=== PATIENT | female | born 1940 | race Caucasian/White ===

== ENCOUNTER 2018-02-11 01:56 | Observation (INO) | payer MEDICARE, OTHER, SELFPAY ==
[2018-02-11] VITALS (7 sets, daily range): BP systolic 124–161; BP diastolic 53–89; PULSE 58–71; RESP 16–20; TEMP 36.1–36.9; O2SAT 96–100; BMI 24.6
[2018-02-11] MEDS: SODIUM CHLORIDE 0.9% 1,000 ML 150 ML IV ×2 (02:51→04:42)
[2018-02-11] MEDS: VANCOMYCIN 1,000 MG/200 ML FROZ.PIGGY 200 MG IV (02:51)
--- NOTE | 2018-02-11 02:57 | PC.NURSE ---
rt hand swelling/pain/redness for several days, diag with MRSA per PCP, unable to obtain Rx, now c/o increasing pain, lt hand also painful with mild redness, bilat distal cms intact, reports chills yesterday, denies nausea/vomiting/injury/soa/cp
[2018-02-11 02:58] LABS: Neutrophils Percent Auto 75.9 % (50-75); Red Cell Distribution Width 13.2 % (11.6-14.8)
[2018-02-11 03:07] LABS: Add Manual Diff / Slide Review NO; Basophils Percent Auto 0.8 % (0-2); Eosinophils Percent Auto 1.8 % (2-4); Hematocrit 33.6 % (36-46); Hemoglobin 11.7 g/dL (12.0-16.0); Mean Corpuscular HGB Conc 34.7 % (30-36); Mean Corpuscular Hemoglobin 32.3 PG (26-34); Mean Corpuscular Volume 93.1 fL (80-100); Monocytes Percent Auto 6.5 % (3-14); Neutrophils Absolute Auto 9900 /uL (3000-5900); Platelet Count 185 X10^3/uL (150-400); Red Blood Cell Count 3.61 X10^6/uL (4.0-5.2)
[2018-02-11 03:09] LABS: Alanine Aminotransferase 36 IU/L (9-52); Albumin 3.7 g/dL (3.5-5.0); Albumin Globulin Ratio 1.3 (1.0-2.8); Alkaline Phosphatase 167 U/L (38-126); Aspartate Aminotransferase 32 IU/L (14-36); BUN Creatinine Ratio 17.5 (6-22); Bilirubin Total 0.8 mg/dL (0.2-1.3); Calcium 8.6 mg/dL (8.4-10.2); Estimated Glomerular Filt Rate 43.7 mL/min (>60); Globulin 2.8 g/dL (1.7-4.1); Glucose 152 mg/dL (80-110); HEMOLYSIS < 15 (0-50); Potassium 3.8 mmol/L (3.4-5.1); Sodium 139 mmol/L (137-145); Total Protein 6.5 g/dL (6.3-8.2); Uric Acid 9.4 mg/dL (2.5-6.2)
[2018-02-11 03:17] LABS: Erythrocyte Sedimentation Rate 42 MM/HR (0-20)
[2018-02-11 03:22] LABS: C-Reactive Protein Quant 23.5 mg/dL (<1.0); Procalcitonin 0.29 ng/mL (<0.5)
--- NOTE | 2018-02-11 05:47 | ED_ITS ---
HPI - Extremity Problem General Chief complaint: Extremity Problem,Nontraumatic Stated complaint: MRSA DIAGNOSIS YEST, NOT GIVEN MEDS Time Seen by Provider: 02/11/18 02:00 Source: patient and family Mode of arrival: ambulatory History of Present Illness HPI Narrative: 77F with hx of DM presents with 4 days of worsening R hand pain, swelling, and redness. She saw her PCP yesterday and was given an Rx for an ABX for MRSA but hasn't filled it yet. MD Complaint: extremity pain and extremity swelling Onset (ago): day(s) Pain Consistency: constant Location: right Quality: burning and aching Radiation: proximal Relieving factors: nothing Exacerbating factors: nothing Associated symptoms: fever Related Data Home Medications Medication Instructions Recorded Confirmed amitriptyline 30 mg PO BEDTIME 02/11/18 02/11/18 diazepam 5 mg PO BID PRN 02/11/18 02/11/18 insulin glargine [Lantus U-100 12 unit SUB-Q BID 02/11/18 02/11/18 Insulin] lisinopril 20 mg PO DAILY 02/11/18 02/11/18 metoprolol succinate 50 mg PO 02/11/18 Allergies Allergy/AdvReac Type Severity Reaction Status Date / Time acetaminophen [From Percocet] AdvReac Nausea Verified 02/11/18 02:07 oxycodone [From Percocet] AdvReac Nausea Verified 02/11/18 02:07 Review of Systems Review of Systems All systems reviewed & are unremarkable except as noted in HPI and below Constitutional Denies chills, Denies fever(s), Denies lethargy and Denies weakness Eyes Denies change in vision, Denies eye discharge, Denies irritation and Denies loss of vision ENT Ears, Nose, Mouth, and Throat: Denies change in voice, Denies neck pain and Denies sore throat Cardiovascular Denies chest pain, Denies irregular heart rhythm, Denies lightheadedness, Denies palpitations, Denies dyspnea, Denies dyspnea on exertion and Denies orthopnea Respiratory Denies cough, Denies dyspnea, Denies dyspnea on exertion and Denies wheezing Gastrointestinal Gastrointestinal: Denies abdominal pain, Denies change in bowel habits, Denies diarrhea, Denies nausea and Denies vomiting Genitourinary Denies hematuria, Denies flank pain, Denies urinary incontinence and Denies urinary urgency Musculoskeletal Reports arthralgias, Reports joint swelling, Reports limited range of motion and Denies neck pain Integumentary/Breasts Denies pruritus, Reports erythema, Denies rash and Denies wounds Neurologic Denies confusion, Denies loss of vision and Denies weakness Psychiatric Denies anxiety, Denies confusion, Denies depression, Denies homicidal ideation and Denies suicidal ideation Endocrine Denies palpitations Allergic/Immunologic Denies wheezing PFSH Social History household members: spouse Smoking Status: Former smoker alcohol intake: current Exam Narrative Exam Narrative: Pleasant 77F clutching her painful R hand Initial Vital Signs Initial Vital Signs: Vital Signs Temperature 98.5 F 02/11/18 02:07 Pulse Rate 65 02/11/18 02:07 Respiratory Rate 20 02/11/18 02:07 Blood Pressure 161/62 H 02/11/18 02:07 Pulse Oximetry 97 02/11/18 02:07 Const General: cooperative and well developed Nutritional Appearance: well nourished Orientation: alert, awake, oriented x3 and not confused HENNV Head: normocephalic and atraumatic Ears: external ears normal and TM's normal bilaterally Nose: external nose normal and No nasal discharge Face and sinus: sinuses nontender, face symmetric, no sinus tenderness and No dry mucous membranes Mouth: oral mucosae normal and moist mucous membranes Teeth and gingiva: dentition normal Throat: tonsils normal and uvula midline Resp Effort & Inspection: normal respiratory effort, able to speak in complete sentences, no respiratory distress and no use of accessory muscles Auscultation: clear to auscultation bilaterally, no rales, no rhonchi and no wheezes GI Inspection: non-distended Palpation: soft, no hepatosplenomegaly, No guarding, No pulsatile mass and No tender Auscultation: normal bowel sounds Back/Spine/Pelvis Back: No CVA tenderness Cervical Spine: cervical ROM normal and No pain with cervical ROM Thoracic/Lumbar Spine: thoracic and lumbar spine normal to inspection Skin General: erythema Lesions: no lesions Rashes: no rashes Trauma: no lacerations or abrasions Wounds: no wounds Neuro General: alert, oriented x3, gait normal and no focal motor deficits Speech: speech normal Extrem Right upper extremity: normal capillary refill, edema and hand Details: abnormal to inspection, normal capillary refill, neuromotor exam normal, abnormal ROM of finger, warmth, swelling and other (Patient does have notable redness, warmth and swelling to the right hand. She has impressive swelling of the right thumb but is able to flex it and denies pain with palpation along flexor tendon.); ROM limited Other: Swelling, warmth and pain is impressive but patient denies any focal pain in the palm of her hand me and I suspect this is most likely cellulitis versus abscess or certainly flexor tenosynovitis Course Orders Ordered: ED Orders 02/11/18 02:45 C-Reactive Protein Quant Stat Complete Blood Count AUTO DIFF Stat Comprehensive Metabolic Panel Stat Erythrocyte Sedimentation Rate Stat Procalcitonin Stat Uric Acid Stat 02/11/18 03:23 Blood Culture Stat 02/11/18 05:39 Consult to Funeral Planning Counselor Routine Sodium Chloride (Normal Saline 0.9%) 1,000 mls @ 150 mls/hr IV CONT TIGIST Last Infusion: 02/11/18 04:42 Dose: 0 mls/hr Admin: 02/11/18 02:51 Dose: 150 mls/hr Discontinued Medications Vancomycin HCl/Dextrose (Vancomycin) 1,000 mg in 200 mls @ 200 mls/hr 15 mg/kg (1000 mg) IV NOW ONE Stop: 02/11/18 03:23 Last Infusion: 02/11/18 04:41 Dose: 0 mls/hr Admin: 02/11/18 02:51 Dose: 200 mls/hr Consultations Consultation #1: Dr. Lau is happy to accept on behalf of Dr. Mike Vital Signs - 8 hr 02/11/18 02:07 02/11/18 04:10 02/11/18 04:54 Temperature 98.5 F 97.9 F 98.0 F Pulse Rate 65 59 L 58 L Respiratory Rate 20 18 19 Blood Pressure 161/62 H 134/65 H Blood Pressure [Left Arm] 153/89 H Pulse Oximetry 97 98 100 MDM - Extremity (Nontraumatic) Lab Data Result diagrams: 02/11/18 02:45 02/11/18 02:45 Lab Results 02/11/18 02/11/18 02/11/18 Range/Units 02:45 02:45 02:45 WBC 13.0 H (4.5-11.0) X10^3/uL RBC 3.61 L (4.0-5.2) X10^6/uL Hgb 11.7 L (12.0-16.0) g/dL Hct 33.6 L (36-46) % MCV 93.1 (80-100) fL MCH 32.3 (26-34) PG MCHC 34.7 (30-36) % RDW 13.2 (11.6-14.8) % Plt Count 185 (150-400) X10^3/uL Neut % (Auto) 75.9 H (50-75) % Lymph % (Auto) 15.0 L (25-40) % Robertson % (Auto) 6.5 (3-14) % Eos % (Auto) 1.8 L (2-4) % Baso % (Auto) 0.8 (0-2) % Neut # (Auto) 9900 H (4629-8443) /uL ESR 42 H (0-20) MM/HR Sodium 139 (137-145) mmol/L Potassium 3.8 (3.4-5.1) mmol/L Chloride 102.0 (98-107) mmol/L Carbon Dioxide 25.0 (22-32) mmol/L BUN 21.0 H (7-17) mg/dL Creatinine 1.20 H (0.52-1.04) mg/dL Estimated GFR 43.7 L (>60) mL/min BUN/Creatinine Ratio 17.5 (6-22) Glucose 152 H (80-110) mg/dL Uric Acid 9.4 H (2.5-6.2) mg/dL Calcium 8.6 (8.4-10.2) mg/dL Total Bilirubin 0.8 (0.2-1.3) mg/dL AST 32 (14-36) IU/L ALT 36 (9-52) IU/L Alkaline Phosphatase 167 H (38-126) U/L C-Reactive Protein 23.5 H (<1.0) mg/dL Total Protein 6.5 (6.3-8.2) g/dL Albumin 3.7 (3.5-5.0) g/dL Globulin 2.8 (1.7-4.1) g/dL Albumin/Globulin Ratio 1.3 (1.0-2.8) Procalcitonin 0.29 (<0.5) ng/mL Discharge Plan Departure Patient Disposition: Admitted As Inpatient Clinical Impression: Cellulitis of hand, right Discharge Date/Time: 02/11/18 04:40 Interventions: ED Discharge Assessment Last Done: 02/11/18 04:40 Admit Date/Time: 02/11/18 04:14 Admit Provider: Antwon Mike
[2018-02-11] MEDS: LISINOPRIL 20 MG TABLET PO (09:07)
[2018-02-11] MEDS: ENOXAPARIN 40 MG/0.4 ML SYRINGE SUBCUT (09:07)
--- NOTE | 2018-02-11 09:10 | P.HP_ITS ---
History of Present Illness Chief complaint: MRSA DIAGNOSIS YEST, NOT GIVEN MEDS Narrative: Amanda Farah is a 77 year old female who I saw in the office 2 days ago. At that time she had a hip ball vein infection of both hands especially on the right his aggressiveness suggested the possibility of an MRSA infection so arrange treatment with doxycycline which should have provided adequate coverage. Seems that pharmacy was unable to provide that a right away not clear with the holdup was but she is continued the next 2 days without antibiotics and the infection was getting worse more red and more swollen and more painful, so she felt it was time to expedite treatment by presenting to the emergency room early this morning. She has had I think a single dose of vancomycin since arriving and already she is aware of significant improvement with symptoms. Patient History Medical History Cellulitis of hand, right (Acute) Diabetes type 2, controlled (Acute) Hypertension (Acute) Anxiety (Acute) Family & Social History Family History: Reviewed 02/11/18 by Antwon Mike MD Household members: spouse Prior Living Arrangements: House lives independently: Yes Tobacco & Substance Use Smoking Status: Former smoker Alcohol intake: current Meds Home Medications Medication Instructions Recorded Confirmed Type amitriptyline 30 mg PO BEDTIME 02/11/18 02/11/18 History diazepam 5 mg PO BID PRN 02/11/18 02/11/18 History doxycycline hyclate 100 mg PO BID #20 cap 02/11/18 Rx insulin glargine [Lantus U-100 12 unit SUB-Q BID 02/11/18 02/11/18 History Insulin] lisinopril 20 mg PO DAILY 02/11/18 02/11/18 History metoprolol succinate 100 mg PO DAILY 02/11/18 02/11/18 History Allergies Allergy/AdvReac Type Severity Reaction Status Date / Time oxycodone [From Percocet] AdvReac Nausea Verified 02/11/18 02:07 Review of Systems Constitutional Constitutional: Reports system reviewed and no additional complaints, except as documented Eyes Eyes: Reports system reviewed; no additional complaints, except as documented ENT Ears, Nose, Mouth, and Throat: Yes system reviewed; no additional complaints, except as documented Cardiovascular Cardiovascular: Reports system reviewed; no additional complaints, except as documented Respiratory Respiratory: Reports system reviewed and no additional complaints, except as documented Gastrointestinal Gastrointestinal: Reports system reviewed and no additional complaints, except as documented Genitourinary Genitourinary: Reports system reviewed and no additional complaints, except as documented Musculoskeletal Musculoskeletal: Reports system reviewed; no additional complaints, except as documented Integumentary/Breasts Skin/Breast: Reports system reviewed and no additional complaints, except as documented Neurologic Neurologic: Reports system reviewed and no additional complaints, except as documented Psychiatric Psychiatric: Reports system reviewed and no additional complaints, except as documented Endocrine Endocrine: Reports system reviewed and no additional complaints, except as documented Hematologic/Lymphatic Hematologic/Lymphatic: Reports system reviewed and no additional complaints, except as documented Allergic/Immunologic Allergic/Immunologic: Reports system reviewed and no additional complaints, except as documented Exam Vital Signs (past 8 hours): Vital Signs - 8 hr 3 02/11/18 02:07 02/11/18 04:10 02/11/18 04:54 Temperature 98.5 F 97.9 F 98.0 F Pulse Rate 65 59 L 58 L Respiratory Rate 20 18 19 Blood Pressure 161/62 H 134/65 H Blood Pressure [Left Arm] 153/89 H Pulse Oximetry 97 98 100 3 02/11/18 08:22 Temperature 97.0 F L Pulse Rate 71 Respiratory Rate 16 Blood Pressure 161/84 H Blood Pressure [Left Arm] Pulse Oximetry 100 Pulse Oximetry 100 Oxygen Delivery Method Room Air Const General: cooperative, healthy appearing, comfortable, well developed and well groomed [facility] Head: normal to inspection Ears: hearing grossly normal bilaterally Nose: external nose normal Face and sinus: normal facial exam Mouth: oral mucosae normal Teeth and gingiva: dentition normal Eyes General: appearance normal, both eyes and all related structures Pupils: PERRL Neck Neck: normal visual inspection Thyroid: thyroid normal Chest Chest: normal inspection of the chest Resp Effort & Inspection: normal respiratory effort and able to speak in complete sentences Auscultation: clear to auscultation bilaterally Cardio Palpation: normal PMI Rate: regular rate Rhythm: regular rhythm GI Inspection: normal to inspection Percussion: normal to percussion Auscultation: normal bowel sounds Skin General: erythema and warm Neuro General: alert, awake and oriented x3 Cranial Nerves: CN's II-XI intact bilaterally Cognition: normal cognition Speech: speech normal Gait: normal gait Motor: muscle tone normal throughout Sensory Exam: no sensory deficits noted Extrem General: normal to inspection Psych Affect: anxious affect Objective Labs Result Diagrams: 02/11/18 02:45 02/11/18 02:45 Labs: Laboratory Results - last 24 hr 02/11/18 02/11/18 02/11/18 02:45 02:45 02:45 WBC 13.0 H RBC 3.61 L Hgb 11.7 L Hct 33.6 L MCV 93.1 MCH 32.3 MCHC 34.7 RDW 13.2 Plt Count 185 Neut % (Auto) 75.9 H Lymph % (Auto) 15.0 L [place] % (Auto) 6.5 Eos % (Auto) 1.8 L Baso % (Auto) 0.8 Neut # (Auto) 9900 H ESR 42 H Sodium 139 Potassium 3.8 Chloride 102.0 Carbon Dioxide 25.0 BUN 21.0 H Creatinine 1.20 H Estimated GFR 43.7 L BUN/Creatinine Ratio 17.5 Glucose 152 H Uric Acid 9.4 H Calcium 8.6 Total Bilirubin 0.8 AST 32 ALT 36 Alkaline Phosphatase 167 H C-Reactive Protein 23.5 H Total Protein 6.5 Albumin 3.7 Globulin 2.8 Albumin/Globulin Ratio 1.3 Procalcitonin 0.29 Assessment & Plan (1) Diabetes type 2, controlled: Current visit: Yes Status: Acute (2) Hypertension: Problem details: Ongoing stable current issue. Current visit: Yes Status: Acute (3) Anxiety: Problem details: Some concerns this visit. Current visit: Yes Status: Acute (4) Cellulitis of hand, right: Problem details: Aggressive process empirically suggesting MRSA infection has responded to initial dose of vancomycin will continue that for least a couple more doses. As long as the improvement continues plan discharge later today and resume doxycycline that was originally prescribed. Current visit: Yes Status: Acute Plan: Plan: As above Quality VTE Deep Vein Thrombosis/Pulmonary Embolism Present on Admission: No
[2018-02-11] MEDS: SODIUM CHLORIDE 0.9% FLUSH 10 ML IV (09:16)
--- NOTE | 2018-02-11 10:24 | PC.NURSE ---
Day shift: A&Ox3. Calm and cooperative w/ care. Tolerated turkey sandwich for breakfast w/ no nausea. Pt able to use hands more but not back to baseline as of yet. CMS ok. Has neuropathy BLE's w/ very limited sensation. Left foot deformed but Pt able to ambulate SBA and steady. No chest pain. Lungs clear. RA 98%. High fall risk. MD notes say possible d/c later today. Call lightr in reach. Will continue to monitor. USes call light proper. Not impulsive. SL IV left hand. AM BG was 91. Did not give the Lantus. NS 150. Call made to MD office about the NS running and for an order for pain meds.
[2018-02-11] MEDS: IBUPROFEN 400 MG TABLET PO (10:59)
[2018-02-11] MEDS: INSULIN GLARGINE 100 UNIT/ML 3ML PEN 12 UNIT SUBCUT (11:20)
--- NOTE | 2018-02-11 12:30 | PC.NURSE ---
Day shift: Pt stating that she is ready to go home and is wondering why she is still here. She didn't want this advertising writer to call the MD at this time. 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 May be r/t the pain. Edema still present but has gone down per Pt. Will continue to monitor and check for d/c orders.
--- NOTE | 2018-02-11 14:12 | PM.DS.1 ---
History of Present Illness Chief complaint: MRSA DIAGNOSIS YEST, NOT GIVEN MEDS Narrative: See H&P Discharge Providers Date of admission: 02/11/18 08:45 Primary care physician: Antwon Mike MD Consults: 02/11/18 05:39 Consult to Reading Instructor Routine Comment: Discharge provider: Antwon Mike MD Summary Discharge Diagnosis: Bilateral hand cellulitis possible MRSA Diabetes well controlled Hospital Course: Admitted after ER visit and initial treatment with vancomycin showed improvement within a few hours. Exam Vital Signs (past 8 hours): Vital Signs - 8 hr 02/11/18 08:22 02/11/18 08:45 02/11/18 12:08 Temperature 97.0 F L 97.0 F L 97.0 F L Pulse Rate 71 71 63 Respiratory Rate 16 16 16 Blood Pressure 161/84 H 124/53 H 130/69 H Pulse Oximetry 100 96 97 Pulse Oximetry 97 Oxygen Delivery Method Room Air Narrative Exam Narrative: Redness and warmth and swelling of hand has improved otherwise unremarkable exam Objective Labs Result Diagrams: 02/11/18 02:45 02/11/18 02:45 Labs: Laboratory Results - last 24 hr 02/11/18 02/11/18 02/11/18 02:45 02:45 02:45 WBC 13.0 H RBC 3.61 L Hgb 11.7 L Hct 33.6 L MCV 93.1 MCH 32.3 MCHC 34.7 RDW 13.2 Plt Count 185 Neut % (Auto) 75.9 H Lymph % (Auto) 15.0 L [place] % (Auto) 6.5 Eos % (Auto) 1.8 L Baso % (Auto) 0.8 Neut # (Auto) 9900 H ESR 42 H Sodium 139 Potassium 3.8 Chloride 102.0 Carbon Dioxide 25.0 BUN 21.0 H Creatinine 1.20 H Estimated GFR 43.7 L BUN/Creatinine Ratio 17.5 Glucose 152 H Uric Acid 9.4 H Calcium 8.6 Total Bilirubin 0.8 AST 32 ALT 36 Alkaline Phosphatase 167 H C-Reactive Protein 23.5 H Total Protein 6.5 Albumin 3.7 Globulin 2.8 Albumin/Globulin Ratio 1.3 Procalcitonin 0.29 Discharge Plan Discharge Plan Patient Disposition: Home, Self-Care Provider Discharge Instructions Diet: Diet as Tolerated Activity: as tolerated Wound Care Report to your healthcare provider any signs of infection, such as:: chills, fever and increased pain Discharge Data Primary Care Provider: Antwon Mike Attending Provider: Antwon Mike Admit Date/Time: 02/11/18 08:45 Quality VTE Deep Vein Thrombosis/Pulmonary Embolism Present on Admission: No
--- NOTE | 2018-02-11 16:21 | CM.DANOTE ---
DCP Assessment/DC Note: [facility] 77 [facility], resident of [place]. Pt admitted for non traumatic cellulitis in both hands. Pt's PCP is Dr Mike; Insurance is Medicare/[employer]. Met w/pt this afternoon, explained SW role. 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 Pt explains this has been a nightmare and is eager to get back home w/po meds. Pt was scared by this infection and states to this PUBLIC RELATIONS ASSISTANT that it could have been life threatening. No barriers identified to safe DC home w/spouse to assist as needed. Jocelyn Sánchez MSW
--- NOTE | 2018-02-11 16:26 | PC.NURSE ---
received pt sitting up in chair, dressed, and awaiting d/c home. pt's wristbacnd and IV's already d/c'd by previous shift. pt prefers to wait for to come to bedside before going over d/c paperwork. reveiewed instructions with pt and spouse. pt verbalized needing to go to pharmacy to pickle solution maker antibiotics prior to going home. pt taken off unit at approximately 1620 via wheelchair, accompanied by RN.
== END 2018-02-11 16:20 | disposition home or self-care (01) ==
LOC: ED 02:45 → AC 05:32
PROVIDERS: Admitting Provider Family Medicine; Emergency Provider Emergency Medicine; Family Provider Family Medicine; PCP Family Medicine; Visit Provider Family Medicine
DX: M79.641 Pain in right hand (principal); Z87.891 Personal history of nicotine dependence
CPT/HCPCS: 36415; 36591; 80053; 82962; 84145; 84550; 85025; 85651; 86140; 87040; 96365; 99283; 99284; G0378; J1650; J3370

== ENCOUNTER → 2018-04-13 11:46 | Outpatient (CLI) | payer MEDICARE, OTHER, SELFPAY ==
[2018-02-11 05:38] VITALS: BMI 24.6
--- NOTE | 2018-04-13 | DI.MG.S_ITS ---
BILATERAL DIGITAL SCREENING MAMMOGRAM 3D/2D WITH CAD: 04/13/2018 CLINICAL: Routine screening. Family history of breast cancer. Comparison is made to exams dated: 04/03/2017 mammogram, 02/05/2016 mammogram, and 01/25/2015 mammogram - [facility]. The tissue of both breasts is heterogeneously dense. This may lower the sensitivity of mammography. Current study was also evaluated with a Computer Aided Detection (CAD) system. No significant masses, calcifications, or other findings are seen in either breast. There has been no significant interval change. IMPRESSION: NEGATIVE There is no mammographic evidence of malignancy. A 1 year screening mammogram is recommended. This exam was interpreted at Station ID: [id number]. NOTE: For mammograms, a report in lay terms will be sent to the patient. Approximately 15% of breast malignancies will not be visualized mammographically. In the management of a palpable breast mass, a negative mammogram must not discourage biopsy of a clinically suspicious lesion. Electronically Signed By: Higinio montoya/maral:04/14/2018 09:17:56 letter sent: Normal Exam ACR BI-RADS Category 1: Negative [id number]
== END ==
PROVIDERS: Family Provider Family Medicine; PCP Family Medicine; Visit Provider Family Medicine
DX: Z12.31 Encounter for screening mammogram for malignant neoplasm of breast (principal); Z80.3 Family history of malignant neoplasm of breast
CPT/HCPCS: 77063; 77067

== ENCOUNTER → 2018-08-19 12:32 | Outpatient (CLI) | payer MEDICARE, OTHER, SELFPAY ==
[2018-02-11 05:38] VITALS: BMI 24.6
== END ==
PROVIDERS: Family Provider Family Medicine; PCP Family Medicine; Visit Provider Family Medicine
DX: Z13.820 Encounter for screening for osteoporosis (principal); Z78.0 Asymptomatic menopausal state; E11.9 Type 2 diabetes mellitus without complications; Z87.891 Personal history of nicotine dependence
CPT/HCPCS: 77080

== ENCOUNTER 2019-03-30 14:28 | Emergency (ER) | payer MEDICARE, OTHER, SELFPAY ==
[2018-02-11 05:38] VITALS: BMI 24.6
[2019-03-30 14:33] VITALS: BP 159/76; PULSE 74; RESP 18; TEMP 36.6; O2SAT 98
[2019-03-30 14:43] LABS: Add Manual Diff / Slide Review NO; Basophils Absolute Auto 100 /uL (0-100); Basophils Percent Auto 0.8 % (0-2); Eosinophils Absolute Auto 200 /uL (0-450); Eosinophils Percent Auto 2.4 % (2-4); Hemoglobin 13.7 g/dL (12.0-16.0); Lymphocytes Absolute Auto 1500 /uL (1100-4500); Lymphocytes Percent Auto 22.8 % (25-40); Mean Corpuscular HGB Conc 34.2 % (30-36); Mean Corpuscular Hemoglobin 32.2 PG (26-34); Mean Corpuscular Volume 94.4 fL (80-100); Monocytes Absolute Auto 400 /uL (0-900); Monocytes Percent Auto 6.7 % (3-14); Neutrophils Absolute Auto 4500 /uL (1500-7000); Neutrophils Percent Auto 67.3 % (50-75); Platelet Count 212 X10^3/uL (150-400); Red Blood Cell Count 4.24 X10^6/uL (4.0-5.2); Red Cell Distribution Width 12.6 % (11.6-14.8); White Blood Cell Count 6.7 X10^3/uL (4.5-11.0)
[2019-03-30 14:50] LABS: INR 0.9 (0.9-1.3); Prothrombin Time 10.1 SECONDS (10.1-12.7)
[2019-03-30 14:53] LABS: PTT Partial Thromboplastin Tim 31 SECONDS (26.4-36.2)
[2019-03-30 14:55] LABS: Alanine Aminotransferase 31 IU/L (9-52); Albumin 4.3 g/dL (3.5-5.0); Albumin Globulin Ratio 1.5 (1.0-2.8); Alkaline Phosphatase 109 U/L (38-126); Aspartate Aminotransferase 46 IU/L (14-36); BUN Creatinine Ratio 12.5 (6-22); Bilirubin Total 0.4 mg/dL (0.2-1.3); Blood Urea Nitrogen 15 mg/dL (7-17); Calcium 9.3 mg/dL (8.4-10.2); Carbon Dioxide 23 mmol/L (22-32); Chloride 101 mmol/L (98-107); Creatine Kinase 254 U/L (30-135); Estimated Glomerular Filt Rate 43.6 mL/min (>60); Globulin 2.8 g/dL (1.7-4.1); Glucose 143 mg/dL (80-110); HEMOLYSIS < 15 (0-50); Lipase 584 U/L (23-300); Potassium 4.3 mmol/L (3.4-5.1); Sodium 138 mmol/L (137-145); Total Protein 7.1 g/dL (6.3-8.2)
[2019-03-30 15:06] LABS: Troponin I 0.069 ng/mL (0.01-0.034)
[2019-03-30 15:12] LABS: CKMB % Relative Index 0.5 % (1.5-5.0); Creatine Kinase MB 1.26 ng/mL (<2.37)
[2019-03-30 15:30] VITALS: BP 159/70; PULSE 74; RESP 14; O2SAT 96
--- NOTE | 2019-03-30 15:42 | ED.WEAKNESS ---
HPI - Weakness General Chief complaint: Weakness Stated complaint: Weakness Time Seen by Provider: 03/30/19 15:31 Source: EMS Mode of arrival: EMS Limitations: no limitations History of Present Illness HPI Narrative: 78-year-old female comes emergency department with complaint of weakness. Patient states that she slipped today. Fell when she is going to the bathroom she could get off the floor. She was unable to push herself up off the floor her attempted to help her but it was a struggle. Patient states she did hit her head. She denies any pain, denies any headache, denies any vision changes, patient is any neck or back pain. No chest pain no shortness of breath, no nausea or vomiting diarrhea occasionally, no issues with urination. 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 So she has little feeling. She states that she feels weak in both like she can appreciate weakness on 1 side versus the other, denies a new weakness in her left versus right upper extremities. No facial droop, no issues with speech. Patient is a diabetic on insulin she takes lisinopril for hypertension, has a history of PCOS and anxiety. She denies any prior surgeries. Dr. Pham is her primary care was replacing Dr. Mike. No tobacco, no illicit. Occasional alcohol. Related Data Home Medications Medication Instructions Recorded Confirmed amitriptyline 30 mg PO BEDTIME PRN 02/11/18 03/30/19 diazepam 5 mg PO BID PRN 02/11/18 03/30/19 lisinopril 20 mg PO DAILY 02/11/18 03/30/19 metoprolol succinate 100 mg PO DAILY 02/11/18 03/30/19 insulin detemir U-100 [Levemir 20 units SUBCUT BID 03/30/19 03/30/19 FlexTouch U-100 Insuln] Allergies Allergy/AdvReac Type Severity Reaction Status Date / Time oxycodone [From Percocet] AdvReac Nausea Verified 03/30/19 14:33 Review of Systems Review of Systems ROS Unobtainable: All systems reviewed & are unremarkable except as noted in HPI and below Constitutional Denies chills, Denies fever(s), Denies frequent falls, Reports headache(s), Denies lethargy, Denies malaise and Reports weakness (Lower legs bilaterally) Eyes Denies change in vision ENT Ears, Nose, Mouth, and Throat: Denies vertigo, Reports headache(s), Denies neck pain and Denies disequilibrium Cardiovascular Denies chest pain, Denies diaphoresis, Denies syncope, Denies rapid heart rate, Denies edema, Denies irregular heart rhythm, Denies lightheadedness, Denies palpitations, Denies dyspnea and Denies dyspnea on exertion Respiratory Denies chest congestion, Denies cough, Denies dyspnea, Denies dyspnea on exertion and Denies wheezing Gastrointestinal Gastrointestinal: Denies abdominal pain, Denies melena, Denies hematochezia, Denies change in bowel habits, Denies constipation, Reports diarrhea, Denies nausea and Denies vomiting Genitourinary Denies hematuria, Denies dysuria, Denies flank pain, Denies urinary incontinence and Denies urinary urgency Musculoskeletal Reports as per HPI, Denies back pain, Denies arthralgias, Denies limited range of motion, Reports muscle weakness, Denies neck pain, Reports numbness (chronic neuropathy) and Denies tingling Integumentary/Breasts Denies rash and Denies unusual bruising Neurologic Denies confusion, Denies vertigo, Denies syncope, Denies frequent falls, Reports headache(s), Denies focal weakness, Reports numbness (chronic neuropathy), Denies tingling, Denies disequilibrium and Reports weakness (Lower legs bilaterally) Psychiatric Denies confusion Endocrine Denies palpitations Allergic/Immunologic Denies wheezing [facility] Medical History Cellulitis of hand, right (Acute) Diabetes type 2, controlled (Acute) Hypertension (Acute) Anxiety (Acute) Social History household members: spouse lives independently: Yes Smoking Status: Former smoker alcohol intake: current Social History household members: spouse lives independently: Yes Smoking Status: Former smoker alcohol intake: current Exam Narrative Exam Narrative: GEN: well nourished, well appearing female, alert and oriented x 3, patient appears to be in no acute distress. HEENT: Atraumatic, pupils are equal round reactive to light, extraocular movements are intact, nares are clear. Throat is clear without any exudates, erythema, tonsillar enlargement or uvular deviation HEART: Regular rate and rhythm without murmur, clicks, rubs. Pulses are equal in upper and lower extremities LUNGS:Lungs clear to auscultation, no wheezes, rales, crackles, chest moves symmetrically ABD:bowel sounds normal, soft, non-tender, no guarding, rebound, rigidity, no masses noted, no hepatosplenomegaly :No CVA tenderness BACK: No cervical, thoracic or lumbar vertebral point tenderness. Patient has normal range of motion. Patient's gait is not tested initially. Muscle strength is 5/5 in upper and lower extremities, decreased sensation bilaterally in lower extremities the patient can feel touch. MSCL: Non-tender, no muscle atrophy, muscles strength 5/5 upper and lower extremities, full range of motion, normal gait NEURO:CN 2-12 intact, sensation normal, reflexes 2/4 upper and lower extremities. finger nose finger test normal, heel ruano test normal, romberg normal Initial Vital Signs Initial Vital Signs: Vital Signs Temperature 97.9 F 03/30/19 14:33 Pulse Rate 74 03/30/19 14:33 Respiratory Rate 18 03/30/19 14:33 Blood Pressure 159/76 H 03/30/19 14:33 Pulse Oximetry 98 03/30/19 14:33 Scores NIH Stroke Scale Level of Conciousness: Alert, keenly responsive Ask month/age: Answers both questions correctly. Open/close eyes, close hand: Performs both tasks correctly Best gaze horizontal: Normal Visual gold: No visual loss Facial palsy: Normal symetrical movement Left arm drift: No drift for full 10 sec Right arm drift: No drift for full 10 sec Left leg drift: No drift for full 10 sec Right leg drift: No drift for full 10 sec Limb ataxia: Absent Sensory on face/arms/legs: Normal, no sensory loss Best language: No aphasia, normal Dysarthria: Normal Extinction or inattention: No abnormality Total NIH Stroke scale score: 0 Course Orders Ordered: ED Orders 03/30/19 14:20 Complete Blood Count AUTO DIFF Stat Comprehensive Metabolic Panel Stat Lipase Stat Partial Thromboplastin Time Stat Prothrombin Time INR Stat Troponin & CK Cardiac Panel Stat 03/30/19 14:33 EKG-12 Lead Stat 03/30/19 16:52 CT head/brain wo con Stat Vital Signs - 8 hr 03/30/19 14:33 03/30/19 15:30 03/30/19 17:00 Temperature 97.9 F Pulse Rate 74 74 65 Respiratory Rate 18 14 16 Blood Pressure Blood Pressure [Left Arm] 159/76 H 159/70 H 173/82 H Pulse Oximetry 98 96 98 03/30/19 17:30 03/30/19 18:21 Temperature Pulse Rate 65 66 Respiratory Rate 17 19 Blood Pressure 181/81 H Blood Pressure [Left Arm] 166/83 H Pulse Oximetry 100 97 MDM - Weakness Lab Data Attestation: I reviewed the patient's lab results. Result diagrams: 03/30/19 14:20 03/30/19 14:20 Lab Results 03/30/19 03/30/19 03/30/19 Range/Units 14:20 14:20 14:20 WBC 6.7 (4.5-11.0) X10^3/uL RBC 4.24 (4.0-5.2) X10^6/uL Hgb 13.7 (12.0-16.0) g/dL Hct 40.0 (36-46) % MCV 94.4 (80-100) fL MCH 32.2 (26-34) PG MCHC 34.2 (30-36) % RDW 12.6 (11.6-14.8) % Plt Count 212 (150-400) X10^3/uL Neut % (Auto) 67.3 (50-75) % Lymph % (Auto) 22.8 L (25-40) % [place] % (Auto) 6.7 (3-14) % Eos % (Auto) 2.4 (2-4) % Baso % (Auto) 0.8 (0-2) % Neut # (Auto) 4500 (1698-4917) /uL Lymph # (Auto) 1500 (7782-5676) /uL [place] # (Auto) 400 (0-900) /uL Eos # (Auto) 200 (0-450) /uL Baso # (Auto) 100 (0-100) /uL PT 10.1 (10.1-12.7) SECONDS INR 0.9 (0.9-1.3) APTT 31 (26.4-36.2) SECONDS Sodium 138 (137-145) mmol/L Potassium 4.3 (3.4-5.1) mmol/L Chloride 101 (98-107) mmol/L Carbon Dioxide 23 (22-32) mmol/L BUN 15 (7-17) mg/dL Creatinine 1.20 H (0.52-1.04) mg/dL Estimated GFR 43.6 L (>60) mL/min BUN/Creatinine Ratio 12.5 (6-22) Glucose 143 H (80-110) mg/dL Calcium 9.3 (8.4-10.2) mg/dL Total Bilirubin 0.4 (0.2-1.3) mg/dL AST 46 H (14-36) IU/L ALT 31 (9-52) IU/L Alkaline Phosphatase 109 (38-126) U/L Total Creatine Kinase 254 H (30-135) U/L CK-MB (CK-2) 1.26 (<2.37) ng/mL CK-MB (CK-2) Rel Index 0.5 L (1.5-5.0) % Troponin I 0.069 H (0.01-0.034) ng/mL Total Protein 7.1 (6.3-8.2) g/dL Albumin 4.3 (3.5-5.0) g/dL Globulin 2.8 (1.7-4.1) g/dL Albumin/Globulin Ratio 1.5 (1.0-2.8) Lipase 584 H (23-300) U/L Urine Dip Bedside Urine Glucose Negative Bedside Urine Bilirubin - Negative Bedside Urine Ketone - Negative Urine Specific [place] 1.015 Bedside Urine Occult Blood - Negative Bedside Urine pH 6.5 Bedside Urine Protein + 30 Bedside Urine Urobilinogen - Negative Bedside Urine Nitrite - Negative Bedside Urine Leukocytes - Negative Esterase Imaging Data CT scan - head: Radiologist's impression: [place] [address] CT Scan Report Signed Patient: Amanda Farah JMR#: [id number] : [id number] Age/Sex: 78 / FDate of Service: 03/30/19 Loc: ED Accession Number: [id number] Procedure: CT head/brain wo con Ordering Provider: Debi Romo D.O. PROCEDURE: CT HEAD/BRAIN WO CON INDICATIONS: weakness in legs. TECHNIQUE: Noncontrast 4.5 mm thick angled axial sections acquired from the foramen magnum to the vertex, with coronal and sagittal reformats. For radiation dose reduction, the following was used: automated exposure control, adjustment of mA and/or kV according to patient size. COMPARISON: [facility], CT, HEAD WITHOUT CONTRAST, 03/08/2016, 11:46. FINDINGS: Image quality: Excellent. CSF spaces: Basal cisterns are patent. No extra-axial fluid collections. The ventricles are symmetric in size and shape. There is mild to moderate cerebral volume loss, with resultant ventricular and sulcal prominence. Brain: No intracranial hemorrhage, mass, or mass effect. There are confluent subcortical, periventricular and deep white matter hypodensities consistent with moderate chronic small vessel ischemic changes. There is intracranial internal carotid artery atherosclerosis. Skull and face: Calvarium and visualized facial bones appear intact, without suspicious lesions. Sinuses: Visualized sinuses and mastoids are clear. IMPRESSION: 1. No acute intracranial abnormality. 2. Moderate chronic white matter small vessel ischemic changes and mild to moderate cerebral volume loss. Dictated by: Nicho Almanza M.D. on 03/30/2019 at 17:16 Approved by: Nicho Almanza M.D. on 03/30/2019 at 17:19 ECG Data Attestation: I personally reviewed and interpreted this ECG as follows: Interpretation: Sinus rhythm rate of 70 AR 176 QRS [address] elevation or depression. MDM Narrative Medical decision making narrative: Patient was able to ambulate without issue. She did use a walker. She has 1 at home she does not normally use it she just uses a cane and I encouraged her to use it. [place] like she did feel weak until after she fell and could not get up off the floor. NIH scale is [address] is negative for no bleed, patient did have a lightheaded injury but no obvious signs of trauma. The rest of her lab work shows a indeterminate troponin but patient is asymptomatic with no chest pain, no shortness of breath no abdominal discomfort. The patient's creatinine slightly elevated 1.2 which is the likely cause for this. That is her normal baseline. Patient's lab work otherwise does not show any significant abnormalities to cause her symptoms. Discussed with patient she feels comfortable returning home plan for to follow up with primary care. Continue her home medications as prescribed. Discharge Plan Departure Patient Disposition: Home Clinical Impression: Weakness Discharge Date/Time: 03/30/19 18:22 Interventions: ED Discharge Assessment Last Done: 03/30/19 18:21 Instructions: DI for Muscle Weakness Activity Restrictions/Additional Instructions: Follow-up with your physician in the next 24-48 hours for recheck. Call for an appointment. Continue home medications as prescribed. Make sure your walking with a walker. Return to the emergency department for worsening symptoms, fevers greater 100.4 F, new headaches, vision changes, difficulty with speech, new weakness or worsening weakness, new numbness or tingling that is changed from your normal baseline, persistent vomiting, black or bloody stools. Vertigo or other new or concerning symptoms. Prescriptions: No Action Levemir FlexTouch U-100 Insuln 100 unit/mL (3 mL) insulin pen 20 units subcut BID RF: 0 metoprolol succinate 50 mg Tablet Extended Release 24 Hr 100 mg PO DAILY RF: 0 lisinopril 20 mg Tablet 20 mg PO DAILY RF: 0 amitriptyline 10 mg Tablet 30 mg PO BEDTIME PRN (Reason: depression) RF: 0 diazepam 5 mg Tablet 5 mg PO BID PRN (Reason: Anxiety) RF: 0 Referrals: Antwon Mike MD [Primary Care Provider] -
--- NOTE | 2019-03-30 15:46 | ED_ITS ---
HPI - Weakness General Chief complaint: Weakness Stated complaint: Weakness Time Seen by Provider: 03/30/19 15:31 Source: EMS Mode of arrival: EMS Limitations: no limitations History of Present Illness HPI Narrative: 78-year-old female comes emergency department with complaint of weakness. Patient states that she slipped today. Fell when she is going to the bathroom she could get off the floor. She was unable to push herself up off the floor her attempted to help her but it was a struggle. Patient states she did hit her head. She denies any pain, denies any headache, denies any vision changes, patient is any neck or back pain. No chest pain no shortness of breath, no nausea or vomiting diarrhea occasionally, no issues with urination. 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 So she has little feeling. She states that she feels weak in both like she can appreciate weakness on 1 si de versus the other, denies a new weakness in her left versus right upper extremities. No facial droop, no issues with speech. Patient is a diabetic on insulin she takes lisinopril for hypertension, has a history of PCOS and anxiety. She denies any prior surgeries. Dr. Pham is her primary care was replacing Dr. Mike. No tobacco, no illicit. Occasional alcohol. Related Data Home Medications Medication Instructions Recorded Confirmed amitriptyline 30 mg PO BEDTIME PRN 02/11/18 03/30/19 diazepam 5 mg PO BID PRN 02/11/18 03/30/19 lisinopril 20 mg PO DAILY 02/11/18 03/30/19 metoprolol succinate 100 mg PO DAILY 02/11/18 03/30/19 insulin detemir U-100 [Levemir 20 units SUBCUT BID 03/30/19 03/30/19 FlexTouch U-100 Insuln] Allergies Allergy/AdvReac Type Severity Reaction Status Date / Time oxycodone [From Percocet] AdvReac Nausea Verified 03/30/19 14:33 Review of Systems Review of Systems ROS Unobtainable: All systems reviewed & are unremarkable except as noted in HPI and below Constitutional Denies chills, Denies fever(s), Denies frequent falls, Reports headache(s), Denies lethargy, Denies malaise and Reports weakness (Lower legs bilaterally) Eyes Denies change in vision ENT Ears, Nose, Mouth, and Throat: Denies vertigo, Reports headache(s), Denies neck pain and Denies disequilibrium Cardiovascular Denies chest pain, Denies diaphoresis, Denies syncope, Denies rapid heart rate, Denies edema, Denies irregular heart rhythm, Denies lightheadedness, Denies palpitations, Denies dyspnea and Denies dyspnea on exertion Respiratory Denies chest congestion, Denies cough, Denies dyspnea, Denies dyspnea on exer tion and Denies wheezing Gastrointestinal Gastrointestinal: Denies abdominal pain, Denies melena, Denies hematochezia, Denies change in bowel habits, Denies constipation, Reports diarrhea, Denies nausea and Denies vomiting Genitourinary Denies hematuria, Denies dysuria, Denies flank pain, Denies urinary incontinence and Denies urinary urgency Musculoskeletal Reports as per HPI, Denies back pain, Denies arthralgias, Denies limited range of motion, Reports muscle weakness, Denies neck pain, Reports numbness (chronic neuropathy) and Denies tingling Integumentary/Breasts Denies rash and Denies unusual bruising Neurologic Denies confusion, Denies vertigo, Denies syncope, Denies frequent falls, Reports headache(s), Denies focal weakness, Reports numbness (chronic neuropathy), Denies tingling, Denies disequilibrium and Reports weakness (Lower legs bilaterally) Psychiatric Denies confusion Endocrine Denies palpitations Allergic/Immunologic Denies wheezing [facility] Medical History Cellulitis of hand, right (Acute) Diabetes type 2, controlled (Acute) Hypertension (Acute) Anxiety (Acute) Social History household members: spouse lives independently: Yes Smoking Status: Former smoker alcohol intake: current Social History household members: spouse lives independently: Yes Smoking Status: Former smoker alcohol intake: current Exam Narrative Exam Narrative: GEN: well nourished, well appearing female, alert and oriented x 3, patient appears to be in no acute distress. HEENT: Atraumatic, pupils are equal round reactive to light, extraocular movements are intact, nares are clear. Throat is clear without any exudates, erythema, tonsillar enlargement or uvular deviation HEART: Regular rate and rhythm without murmur, clicks, rubs. Pulses are equal in upper and lower extremities LUNGS:Lungs clear to auscultation, no wheezes, rales, crackles, chest moves symmetrically ABD:bowel sounds normal, soft, non-tender, no guarding, rebound, rigidity, no masses noted, no hepatosplenomegaly :No CVA tenderness BACK: No cervical, thoracic or lumbar vertebral point tenderness. Patient has normal range of motion. Patient's gait is not tested initially. Muscle strength is 5/5 in upper and lower extremities, decreased sensation bilaterally in lower extremities the patient can feel touch. MSCL: Non-tender, no muscle atrophy, muscles strength 5/5 upper and lower extremities, full range of motion, normal gait NEURO:CN 2-12 intact, sensation normal, reflexes 2/4 upper and lower extremities. finger nose finger test normal, heel ruano test normal, romberg normal Initial Vital Signs Initial Vital Signs: Vital Signs Temperature 97.9 F 03/30/19 14:33 Pulse Rate 74 03/30/19 14:33 Respiratory Rate 18 03/30/19 14:33 Blood Pressure 159/76 H 03/30/19 14:33 Pulse Oximetry 98 03/30/19 14:33 Scores NIH Stroke Scale Level of Conciousness: Alert, keenly responsive Ask month/age: Answers both questions correctly. Open/close eyes, close hand: Performs both tasks correctly Best gaze horizontal: Normal Visual gold: No visual loss Facial palsy: Normal symetrical movement Left arm drift: No drift for full 10 sec Right arm drift: No drift for full 10 sec Left leg drift: No drift for full 10 sec Right leg drift: No drift for full 10 sec Limb ataxia: Absent Sensory on face/arms/legs: Normal, no sensory loss Best language: No aphasia, normal Dysarthria: Normal Extinction or inattention: No abnormality Total NIH Stroke scale score: 0 Course Orders Ordered: ED Orders 03/30/19 14:20 Complete Blood Count AUTO DIFF Stat Comprehensive Metabolic Panel Stat Lipase Stat Partial Thromboplastin Time Stat Prothrombin Time INR Stat Troponin & CK Cardiac Panel Stat 03/30/19 14:33 EKG-12 Lead Stat 03/30/19 16:52 CT head/brain wo con Stat Vital Signs - 8 hr 03/30/19 14:33 03/30/19 15:30 03/30/19 17:00 Temperature 97.9 F Pulse Rate 74 74 65 Respiratory Rate 18 14 16 Blood Pressure Blood Pressure [Left Arm] 159/76 H 159/70 H 173/82 H Pulse Oximetry 98 96 98 03/30/19 17:30 03/30/19 18:21 Temperature Pulse Rate 65 66 Respiratory Rate 17 19 Blood Pressure 181/81 H Blood Pressure [Left Arm] 166/83 H Pulse Oximetry 100 97 MDM - Weakness Lab Data Attestation: I reviewed the patient's lab results. Result diagrams: 03/30/19 14:20 03/30/19 14:20 Lab Results 03/30/19 03/30/19 03/30/19 Range/Units 14:20 14:20 14:20 WBC 6.7 (4.5-11.0) X10^3/uL RBC 4.24 (4.0-5.2) X10^6/uL Hgb 13.7 (12.0-16.0) g/dL Hct 40.0 (36-46) % MCV 94.4 (80-100) fL MCH 32.2 (26-34) PG MCHC 34.2 (30-36) % RDW 12.6 (11.6-14.8) % Plt Count 212 (150-400) X10^3/uL Neut % (Auto) 67.3 (50-75) % Lymph % (Auto) 22.8 L (25-40) % [place] % (Auto) 6.7 (3-14) % Eos % (Auto) 2.4 (2-4) % Baso % (Auto) 0.8 (0-2) % Neut # (Auto) 4500 (8435-9178) /uL Lymph # (Auto) 1500 (2901-8596) /uL [place] # (Auto) 400 (0-900) /uL Eos # (Auto) 200 (0-450) /uL Baso # (Auto) 100 (0-100) /uL PT 10.1 (10.1-12.7) SECONDS INR 0.9 (0.9-1.3) APTT 31 (26.4-36.2) SECONDS Sodium 138 (137-145) mmol/L Potassium 4.3 (3.4-5.1) mmol/L Chloride 101 (98-107) mmol/L Carbon Dioxide 23 (22-32) mmol/L BUN 15 (7-17) mg/dL Creatinine 1.20 H (0.52-1.04) mg/dL Estimated GFR 43.6 L (>60) mL/min BUN/Creatinine Ratio 12.5 (6-22) Glucose 143 H (80-110) mg/dL Calcium 9.3 (8.4-10.2) mg/dL Total Bilirubin 0.4 (0.2-1.3) mg/dL AST 46 H (14-36) IU/L ALT 31 (9-52) IU/L Alkaline Phosphatase 109 (38-126) U/L Total Creatine Kinase 254 H (30-135) U/L CK-MB (CK-2) 1.26 (<2.37) ng/mL CK-MB (CK-2) Rel Index 0.5 L (1.5-5.0) % Troponin I 0.069 H (0.01-0.034) ng/mL Total Protein 7.1 (6.3-8.2) g/dL Albumin 4.3 (3.5-5.0) g/dL Globulin 2.8 (1.7-4.1) g/dL Albumin/Globulin Ratio 1.5 (1.0-2.8) Lipase 584 H (23-300) U/L Urine Dip Bedside Urine Glucose Negative Bedside Urine Bilirubin - Negative Bedside Urine Ketone - Negative Urine Specific [place] 1.015 Bedside Urine Occult Blood - Negative Bedside Urine pH 6.5 Bedside Urine Protein + 30 Bedside Urine Urobilinogen - Negative Bedside Urine Nitrite - Negative Bedside Urine Leukocytes - Negative Esterase Imaging Data CT scan - head: Radiologist's impression: [place] [address] CT Scan Report Signed Patient: Amanda Farah JMR#: [id number] : 1Acct:[id number] Age/Sex: 78 / FDate of Service: 03/30/19 Loc: ED Accession Number: [id number] Procedure: CT head/brain wo con Ordering Provider: Debi Romo D.O. PROCEDURE: CT HEAD/BRAIN WO CON INDICATIONS: weakness in legs. TECHNIQUE: Noncontrast 4.5 mm thick angled axial sections acquired from the foramen magnum to the vertex, with coronal and sagittal reformats. For radiation dose reduction, the following was used: automated exposure control, adjustment of mA and/or kV according to patient size. COMPARISON: [facility], CT, HEAD WITHOUT CONTRAST, 03/08/2016, 11:46. FINDINGS: Image quality: Excellent. CSF spaces: Basal cisterns are patent. No extra-axial fluid collections. The ventricles are symmetric in size and shape. There is mild to moderate cerebral volume loss, with resultant ventricular and sulcal prominence. Brain: No intracranial hemorrhage, mass, or mass effect. There are confluent subcortical, periventricular and deep white matter hypodensities consistent with moderate chronic small vessel ischemic changes. There is intracranial internal carotid artery atherosclerosis. Skull and face: Calvarium and visualized facial bones appear intact, without suspicious lesions. Sinuses: Visualized sinuses and mastoids are clear. IMPRESSION: 1. No acute intracranial abnormality. 2. Moderate chronic white matter small vessel ischemic changes and mild to moderate cerebral volume loss. Dictated by: Nicho Almanza M.D. on 03/30/2019 at 17:16 Approved by: Nicho Almanza M.D. on 03/30/2019 at 17:19 ECG Data Attestation: I personally reviewed and interpreted this ECG as follows: Interpretation: Sinus rhythm rate of 70 PA 176 QRS [address] elevation or depression. MDM Narrative Medical decision making narrative: Patient was able to ambulate without issue. She did use a walker. She has 1 at home she does not normally use it she just uses a cane and I encouraged her to use it. [place] like she did feel weak until after she fell and could not get up off the floor. NIH scale is [address] is negative for no bleed, patient did have a lightheaded injury but no obvious sig ns of trauma. The rest of her lab work shows a indeterminate troponin but patient is asymptomatic with no chest pain, no shortness of breath no abdominal discomfort. The patient's creatinine slightly elevated 1.2 which is the likely cause for this. That is her normal baseline. Patient's lab work otherwise does not show any significant abnormalities to cause her symptoms. Discussed with patient she feels comfortable returning home plan for to follow up with primary care. Continue her home medications as prescribed. Discharge Plan Departure Patient Disposition: Home Clinical Impression: Weakness Discharge Date/Time: 03/30/19 18:22 Interventions: ED Discharge Assessment Last Done: 03/30/19 18:21 Instructions: DI for Muscle Weakness Activity Restrictions/Additional Instructions: Follow-up with your physician in the next 24-48 hours for recheck. Call for an appointment. Continue home medications as prescribed. Make sure your walking with a walker. Return to the emergency department for worsening symptoms, fevers greater 100.4 F, new headaches, vision changes, difficulty with speech, new weakness or worsening weakness, new numbness or tingling that is changed from your normal baseline, persistent vomiting, black or bloody stools. Vertigo or other new or concerning symptoms. Prescriptions: No Action Levemir FlexTouch U-100 Insuln 100 unit/mL (3 mL) insulin pen 20 units subcut BID RF: 0 metoprolol succinate 50 mg Tablet Extended Release 24 Hr 100 mg PO DAILY RF: 0 lisinopril 20 mg Tablet 20 mg PO DAILY RF: 0 amitriptyline 10 mg Tablet 30 mg PO BEDTIME PRN (Reason: depression) RF: 0 diazepam 5 mg Tablet 5 mg PO BID PRN (Reason: Anxiety) RF: 0 Referrals: Antwon Mike MD [Primary Care Provider] -
--- NOTE | 2019-03-30 16:52 | DI.CT.S_ITS ---
PROCEDURE: CT HEAD/BRAIN WO CON INDICATIONS: weakness in legs. TECHNIQUE: Noncontrast 4.5 mm thick angled axial sections acquired from the foramen magnum to the vertex, with coronal and sagittal reformats. For radiation dose reduction, the following was used: automated exposure control, adjustment of mA and/or kV according to patient size. COMPARISON: [facility], CT, HEAD WITHOUT CONTRAST, 03/08/2016, 11:46. FINDINGS: Image quality: Excellent. CSF spaces: Basal cisterns are patent. No extra-axial fluid collections. The ventricles are symmetric in size and shape. There is mild to moderate cerebral volume loss, with resultant ventricular and sulcal prominence. Brain: No intracranial hemorrhage, mass, or mass effect. There are confluent subcortical, periventricular and deep white matter hypodensities consistent with moderate chronic small vessel ischemic changes. There is intracranial internal carotid artery atherosclerosis. Skull and face: Calvarium and visualized facial bones appear intact, without suspicious lesions. Sinuses: Visualized sinuses and mastoids are clear. IMPRESSION: 1. No acute intracranial abnormality. 2. Moderate chronic white matter small vessel ischemic changes and mild to moderate cerebral volume loss. Dictated by: Nicho Almanza M.D. on 03/30/2019 at 17:16 Approved by: Nicho Almanza M.D. on 03/30/2019 at 17:19
[2019-03-30 17:00] VITALS: BP 173/82; PULSE 65; RESP 16; O2SAT 98
[2019-03-30 17:30] VITALS: BP 166/83; PULSE 65; RESP 17; O2SAT 100
[2019-03-30 18:21] VITALS: BP 181/81; PULSE 66; RESP 19; O2SAT 97
== END 2019-03-30 18:22 | disposition home or self-care (01) ==
PROVIDERS: Emergency Provider Emergency Medicine; Family Provider Family Medicine; PCP Family Medicine
DX: R53.1 Weakness (principal); S09.90XA Unspecified injury of head, initial encounter; I10 Essential (primary) hypertension; W01.0XXA Fall on same level from slipping, tripping and stumbling without subsequent striking against object, initial encounter
CPT/HCPCS: 36591; 70450; 80053; 81003; 82550; 82553; 83690; 84484; 85025; 85610; 85730; 93005; 99283; 99285

== ENCOUNTER → 2019-03-31 11:26 | Outpatient (ROUT) | payer MEDICARE, OTHER, SELFPAY ==
[2018-02-11 05:38] VITALS: BMI 24.6
[2019-03-31 11:43] LABS: D Dimer 230 ng/mL (<230)
[2019-03-31 11:55] LABS: Troponin I 0.036 ng/mL (0.01-0.034)
== END ==
PROVIDERS: Family Provider Family Medicine; PCP Family Medicine; Visit Provider Student in an Organized Health Care Education/Training Program
DX: M79.606 Pain in leg, unspecified (principal); R79.89 Other specified abnormal findings of blood chemistry
CPT/HCPCS: 84484; 85379

== ENCOUNTER → 2019-03-31 11:33 | Outpatient (CLI) | payer MEDICARE, OTHER, SELFPAY ==
[2018-02-11 05:38] VITALS: BMI 24.6
--- NOTE | 2019-03-31 | DI.RAD.S_ITS ---
PROCEDURE: XR CHEST 2V INDICATIONS: ELEVATED TROPONIN - SHORTNESS OF BREATH TECHNIQUE: 2 views of the chest were acquired. COMPARISON: [facility], Chest x-ray, 03/08/2016. FINDINGS: Surgical changes and devices: None. Lungs and pleura: Lungs are clear. No pleural effusions or pneumothorax. Mediastinum: Mediastinal contours are normal. Heart size is normal. Bones and chest wall: No suspicious bony abnormalities. Soft tissues appear unremarkable. IMPRESSION: No acute cardiopulmonary disease. Dictated by: Leatha Deleon M.D. on 03/31/2019 at 14:14 Approved by: Leatha Deleon M.D. on 03/31/2019 at 14:14
--- NOTE | 2019-03-31 14:54 | DI.US.S_ITS ---
PROCEDURE: US PERIPH VENOUS LOW EXTREM LT INDICATIONS: PAIN TECHNIQUE: Real-time imaging, as well as color and pulse Doppler interrogation, were performed of the lower extremity deep veins from the inguinal ligament to the popliteal fossa. COMPARISON: None. FINDINGS: The common femoral, femoral and popliteal veins are normally compressible, and free of intraluminal thrombus. Color and pulse Doppler demonstrate normal phasic intraluminal flow. There is normal augmentation response to distal compression maneuver. IMPRESSION: No deep venous thrombosis identified within the left lower extremity. Dictated by: Bill Jesus [facility] Interpreted: Tito Mckeon MD on 03/31/2019 at 16:07 Approved by: Tito Mckeon M.D. on 04/01/2019 at 9:03
== END ==
PROVIDERS: PCP Family Medicine; Visit Provider Student in an Organized Health Care Education/Training Program
DX: R79.89 Other specified abnormal findings of blood chemistry (principal); M79.606 Pain in leg, unspecified; R06.02 Shortness of breath
CPT/HCPCS: 71046; 84484; 85379; 93971

== ENCOUNTER → 2019-04-01 07:57 | Outpatient (CLI) | payer MEDICARE, OTHER, SELFPAY ==
[2018-02-11 05:38] VITALS: BMI 24.6
--- NOTE | 2019-04-01 | DI.ECHO.S_ITS ---
[facility] +---------+ : : [address] : : : : [id number] : : : : Phone: [phone] Echocardiogram Report + + :Name: DINORA OCONNELL Study Date: 04/01/2019 Height: 65 in : :[facility] Exam Location: [facility] Weight: 145 lb : : Gender: Female BSA: 1.7 m2 : :: 1940 Age: 78 yrs BP: 140/80 mmHg: :Reason For Study: ABNL FINDINGS OF BLOOD CHEMISTRY : : Performed By: Azeem Ahn : :Referring: PAULA LAGUNAS : + + Interpretation Summary The left ventricle is normal in size. Left ventricular systolic function is normal without focal wall motion abnormalities. The ejection fraction is estimated to be 60-65%. The right ventricle is normal in size and function. The right ventricular systolic pressure is estimated to be at least 22 mmHg based on an estimated right atrial pressure of 3 mm Hg. The left atrium is mildly dilated. Right atrial size is normal. There is no significant valvular heart disease. The ascending aorta is mildly enlarged. Procedure: A two-dimensional transthoracic echocardiogram with color flow and Doppler was performed. The study quality was technically adequate. There is no prior echocardiogram noted for this patient. The patient was in normal sinus rhythm during the exam. Left Ventricle: The left ventricle is normal in size. Left ventricular wall thickness is mildly increased. Left ventricular systolic function is normal without focal wall motion abnormalities. The ejection fraction is estimated to be 60-65%. Diastolic function could not be accurately assessed due to contradictory data. Right Ventricle: The right ventricle is normal in size and function. Atria: The left atrium is mildly dilated. Right atrial size is normal. The interatrial septum is intact with no evidence for an atrial septal defect. Mitral Valve: The mitral valve is normal in structure and function. There is trace mitral regurgitation. Aortic Valve: The aortic valve is trileaflet. The aortic valve is slightly calcified. The aortic valve opens well. No aortic regurgitation is present. Tricuspid Valve: The tricuspid valve is normal in structure and function. There is trace tricuspid regurgitation. The right ventricular systolic pressure is estimated to be at least 22 mmHg based on an estimated right atrial pressure of 3 mm Hg. Pulmonic Valve: The pulmonic valve is normal in structure and function. There is no pulmonic valvular regurgitation. There is no significant valvular heart disease. Great Vessels: The aortic root is normal size. The ascending aorta is mildly enlarged. The pulmonary artery is normal size. The IVC is of normal diameter and collapses greater than 50% with a sniff. This suggests a low right atrial pressure of 3 mm Hg. Pericardium/ Pleura There is no pericardial effusion. There is no pleural effusion. MMode/2D Measurements & Calculations LVIDd: 4.3 cm LVOT diam: 2.1 cm LVIDs: 2.1 cm Ao root diam: 2.9 cm FS: 52.1 % Aortic Jxn: 2.5 cm EPSS: 0.35 cm asc Aorta Diam: 3.6 cm IVSd: 1.1 cm Ao Arch Diam (Prox Trans): 2.1 cm LVPWd: 1.1 cm LV lemon. diameter/BSA (cm/m^2): 2.5 LV sys. diameter/BSA (cm/m^2): 1.2 LA dimension: 3.8 cm RA long axis: 4.0 cm LA A2 area: 19.1 cm2 RA area: 10.3 cm2 LA A4 area: 18.3 cm2 RA vol: 22.6 ml LA length (vol): 4.8 cm RA : 13.1 ml/m2 LA vol: 61.5 ml IVC diam: 1.8 cm LA vol index: 35.7 ml/m2 Doppler Measurements & Calculations Ao V2 max: 166.8 cm/sec LVOT Max Jarred: 116.4 cm/sec Ao V2 mean: 127.0 cm/sec LV V1 max P.4 mmHg Ao max P.1 mmHg LV V1 VTI: 27.3 cm Ao mean P.9 mmHg JOHNNA(I,D): 2.4 cm2 Ao V2 VTI: 38.7 cm JOHNNA(V,D): 2.3 cm2 sev ratio: 0.71 JOHNNA indexed to BSA (cm^2/m^2): 1.4 MV E max jarred: 56.2 cm/sec TR max jarred: 220.3 cm/sec MV A max jarred: 63.0 cm/sec TR max P.4 mmHg MV E/A: 0.89 PA V2 max: 72.8 cm/sec Med Peak E' Jarred: 2.9 cm/sec PA V2 mean: 50.6 cm/sec E/E' med: 19.5 PA mean P.1 mmHg Lat Peak E' Jarred: 3.6 cm/sec PA pr(Accel): 31.6 mmHg E/E' lat: 15.6 PA Accel Time: 0.10 sec E/e' average: 17.5 MV dec time: 0.28 sec SV(LVOT): 91.4 ml Reading Physician:04:48 PM
== END ==
PROVIDERS: PCP Family Medicine; Visit Provider Student in an Organized Health Care Education/Training Program
DX: R79.89 Other specified abnormal findings of blood chemistry (principal); I77.89 Other specified disorders of arteries and arterioles
CPT/HCPCS: 93306

== ENCOUNTER 2019-04-01 09:37 | Emergency (ER) | payer MEDICARE, OTHER, SELFPAY ==
[2018-02-11 05:38] VITALS: BMI 24.6
[2019-04-01 09:37] VITALS: BP 198/78; PULSE 69; RESP 20; TEMP 36.9; O2SAT 99
--- NOTE | 2019-04-01 09:41 | DI.RAD.S_ITS ---
PROCEDURE: XR CHEST 1V INDICATIONS: weakness, improving. concern for cardiac cause per pcp TECHNIQUE: One view of the chest was acquired. COMPARISON: [facility], CR, XR CHEST 2V, 03/31/2019, 11:56. FINDINGS: Surgical changes and devices: None. Lungs and pleura: Minimal streaky left basilar opacities not seen on prior study are favored to represent atelectasis. Lungs are otherwise clear. No pleural effusions or pneumothorax. Mediastinum: Mediastinal contours appear normal. Heart size is normal. Bones and chest wall: No suspicious bony lesions. Overlying soft tissues appear unremarkable. IMPRESSION: Minimal, streaky left basilar opacities which are favored to represent atelectasis. Otherwise, lungs are clear. No acute cardiopulmonary process. Dictated by: Bernardo Cabezas M.D. on 04/01/2019 at 10:19 Approved by: Bernardo Cabezas M.D. on 04/01/2019 at 10:20
--- NOTE | 2019-04-01 09:49 | ED_ITS ---
HPI - Weakness General Chief complaint: Chest Pain Stated complaint: Sent over by doctor after her Apt Time Seen by Provider: 04/01/19 09:41 Source: patient, family () and old records reviewed Mode of arrival: ambulatory Limitations: no limitations History of Present Illness HPI Narrative: A 78-year-old female who was seen by myself 2 days ago. She was here for weakness which she states has been improving. She is requiring a walker to walk around. She saw her primary care yesterday and today. They were concerned about possible cardiac cause of her new onset weakness. Patient has not had any chest pain or pressure at any time, no shortness of breath. No sweats, no nausea or vomiting. No headache. She does complain of pain in her upper thighs when I saw her and she is continuing more in the left. Patient states not in her hips or bones. She notices it when she walks distances. Patient denies any urinary issues. She did have an episode of diarrhea this morning while she was at the doctor's office. Patient did have a repeat troponin which was trending down from her indeterminate of 0.069 on the and is 0.036 yesterday. She also had a D-dimer that was negative. She had ultrasou nd of the left lower extremity yesterday which was negative. She also had an echo this morning which has not been read. Related Data Home Medications Medication Instructions Recorded Confirmed amitriptyline 30 mg PO BEDTIME PRN 02/11/18 04/01/19 diazepam 5 mg PO TID 02/11/18 04/01/19 lisinopril 20 mg PO DAILY 02/11/18 04/01/19 metoprolol succinate 100 mg PO DAILY 02/11/18 04/01/19 insulin detemir U-100 [Levemir 20 units SUBCUT BID 03/30/19 04/01/19 FlexTouch U-100 Insuln] Allergies Allergy/AdvReac Type Severity Reaction Status Date / Time oxycodone [From Percocet] AdvReac Nausea Verified 03/30/19 14:33 Review of Systems Review of Systems ROS Unobtainable: All systems reviewed & are unremarkable except as noted in HPI and below Constitutional Denies body ache(s), Denies chills, Denies fever(s), Denies headache(s), Denies lethargy and Reports weakness (Lower extremities.) Eyes Denies change in vision ENT Ears, Nose, Mouth, and Throat: Denies abnormal hearing, Denies vertigo, Denies headache(s), Denies neck pain and Denies other (Facial droop) Cardiovascular Denies chest pain, Denies diaphoresis, Denies syncope, Denies rapid heart rate, Denies edema, Denies irregular heart rhythm, Reports claudication (Pain in legs particularly left when walking.), Denies lightheadedness, Denies radiating jaw, neck or arm pain, Denies palpitations, Denies dyspnea, Denies dyspnea on exertion and Denies orthopnea Respiratory Denies change in phlegm color, Denies chest congestion, Denies cough, Denies dyspnea, Denies dyspnea on exertion and Denies wheezing Gastrointestinal Gastrointestinal: Denies abdominal pain, Reports change in bowel habits, Reports diarrhea (One episode today), Denies nausea and Denies vomiting Genitourinary Denies hematuria, Denies urinary frequency, Denies dysuria, Denies flank pain, Denies urinary incontinence and Denies urinary urgency Musculoskeletal Reports as per HPI, Reports muscle weakness (Improving left greater than right), Denies neck pain and Reports numbness (Chronic neuropathy) Integumentary/Breasts Denies rash Neurologic Reports as per HPI, Denies abnormal hearing, Denies abnormal movements, Denies abnormal speech, Denies confusion, Denies vertigo, Denies syncope, Denies headache(s), Reports numbness (Chronic neuropathy) and Reports weakness (Lower extremities.) Psychiatric Denies confusion Endocrine Denies palpitations Allergic/Immunologic Denies wheezing [facility] Social History household members: spouse lives independently: Yes Smoking Status: Former smoker alcohol intake: current Exam Narrative Exam Narrative: GEN: well nourished, well appearing elderly female, alert and oriented x 3, patient appears to be in no acute distress. Patient walkered to into the room HEENT: Atraumatic, pupils are equal round reactive to light, extraocular movements are intact, nares are clear. Throat is clear without any exudates, erythema, tonsillar enlargement or uvular deviatio. Patient walkered into the room. HEART: Regular rate and rhythm without murmur, clicks, rubs. LUNGS:Lungs clear to auscultation, no wheezes, rales, crackles, chest moves symmetrically ABD:bowel sounds normal, soft, non-tender, no guarding, rebound, rigidity, no masses noted, no hepatosplenomegaly :No CVA tenderness MSCL: Non-tender, normal range of motion, 5/5 muscle strength of upper and lower extremities. ambulates without difficulty with walker, able to sit up and stand from bed without issue. NEURO:CN 2-12 intact, sensation normal. Initial Vital Signs Initial Vital Signs: Vital Signs Temperature 98.4 F 04/01/19 09:37 Pulse Rate 69 04/01/19 09:37 Respiratory Rate 20 04/01/19 09:37 Blood Pressure 198/78 H 04/01/19 09:37 Pulse Oximetry 99 04/01/19 09:37 Course Orders Ordered: Discontinued Medications Aspirin (Aspirin Chew) 324 mg PO NOW ONE Stop: 04/01/19 09:42 Last Admin: 04/01/19 10:24 Dose: 324 mg Sodium Chloride (Normal Saline 0.9%) 1,000 mls @ 150 mls/hr IV CONT TIGIST Last Infusion: 04/01/19 12:47 Dose: 0 mls/hr Infusion: 04/01/19 12:43 Dose: 0 mls/hr Admin: 04/01/19 10:28 Dose: 150 mls/hr Vital Signs - 8 hr 04/01/19 11:30 04/01/19 12:30 Pulse Rate 57 L 55 L Respiratory Rate 13 97 H Blood Pressure [Left Arm] 154/71 H 166/73 H Pulse Oximetry 97 MDM - Weakness Lab Data Attestation: I reviewed the patient's lab results. Result diagrams: 04/01/19 09:55 04/01/19 09:55 Lab Results 04/01/19 04/01/19 Range/Units 09:55 09:55 WBC 6.6 (4.5-11.0) X10^3/uL RBC 3.99 L (4.0-5.2) X10^6/uL Hgb 13.0 (12.0-16.0) g/dL Hct 37.6 (36-46) % MCV 94.3 (80-100) fL MCH 32.5 (26-34) PG MCHC 34.5 (30-36) % RDW 12.8 (11.6-14.8) % Plt Count 185 (150-400) X10^3/uL Neut % (Auto) 68.4 (50-75) % Lymph % (Auto) 20.5 L (25-40) % [place] % (Auto) 7.9 (3-14) % Eos % (Auto) 2.3 (2-4) % Baso % (Auto) 0.9 (0-2) % Neut # (Auto) 4500 (4452-0538) /uL Lymph # (Auto) 1300 (8522-9117) /uL [place] # (Auto) 500 (0-900) /uL Eos # (Auto) 200 (0-450) /uL Baso # (Auto) 100 (0-100) /uL Sodium 139 (137-145) mmol/L Potassium 4.2 (3.4-5.1) mmol/L Chloride 99 (98-107) mmol/L Carbon Dioxide 30 (22-32) mmol/L BUN 19 H (7-17) mg/dL Creatinine 1.20 H (0.52-1.04) mg/dL Estimated GFR 43.6 L (>60) mL/min BUN/Creatinine Ratio 15.8 (6-22) Glucose 159 H (80-110) mg/dL Calcium 9.2 (8.4-10.2) mg/dL Total Bilirubin 0.5 (0.2-1.3) mg/dL AST 53 H (14-36) IU/L ALT 35 (9-52) IU/L Alkaline Phosphatase 129 H (38-126) U/L Total Creatine Kinase 195 H (30-135) U/L CK-MB (CK-2) 1.76 (<2.37) ng/mL CK-MB (CK-2) Rel Index 0.9 L (1.5-5.0) % Troponin I 0.020 (0.01-0.034) ng/mL Total Protein 7.0 (6.3-8.2) g/dL Albumin 4.3 (3.5-5.0) g/dL Globulin 2.7 (1.7-4.1) g/dL Albumin/Globulin Ratio 1.6 (1.0-2.8) Lipase 83 D (23-300) U/L Imaging Data Chest x-ray: Radiologist's impression: [place] [id number] [place] [id number] XRay Report Signed Patient: Amanda Farah JMR#: [id number] : 1Acct:[id number] Age/Sex: 78 / FDate of Service: 04/01/19 Loc: ED Accession Number: [id number] Procedure: XR chest 1V Ordering Provider: Debi Romo D.O. PROCEDURE: XR CHEST 1V INDICATIONS: weakness, improving. concern for cardiac cause per pcp TECHNIQUE: One view of the chest was acquired. COMPARISON: [facility], CR, XR CHEST 2V, 03/31/2019, 11:56. FINDINGS: Surgical changes and devices: None. Lungs and pleura: Minimal streaky left basilar opacities not seen on prior study are favored to represent atelectasis. Lungs are otherwise clear. No pleural effusions or pneumothorax. Mediastinum: Mediastinal contours appear normal. Heart size is normal. Bones and chest wall: No suspicious bony lesions. Overlying soft tissues appear unremarkable. IMPRESSION: Minimal, streaky left basilar opacities which are favored to represent atelectasis. Otherwise, lungs are clear. No acute cardiopulmonary process. Dictated by: Bernardo Cabezas M.D. on 04/01/2019 at 10:19 Approved by: Bernardo Cabezas M.D. on 04/01/2019 at 10:20 ECG Data Attestation: I personally reviewed and interpreted this ECG as follows: Prior ECG tracings: available for review Interpretation: Sinus rhythm rate of 69 P are 193 QRS 82 and QTC of 409. Inverted T-wave in 3. No elevation. No other ST changes appreciated. Patient has prior EKG from 03/30/2019 which shows inversion aVL and upright T-wave in 3. MDM Narrative Medical decision making narrative: Patient had repeat troponin which is decreasing the initial was indeterminate and was suspected to be from her chronic renal dysfunction. She had an ultrasound of her lower extremity yesterday which was negative. She also had an echo although I do not have report for this. Patient was prescribed increased dose of atorvastatin 80 mg, aspirin 81 mg some plastic 75 mg but she has not been able to obtain these to start them yet. She was sent for PCP for concern for cardiac cause of her symptomatology. She also has a strong family history of TIAs. Potentially her discomfort in her lower extremity could also be related to claudication. Spoke with Dr. Mas, he would recommend nuclear med stress testing. He cannot pull up the images for echo at this time, they are not available so he is unsure when will be read. I spoke with Dr. Pham, PCP. If we have stress testing capabilities tomorrow we can keep for observation. If we do not with patient's downward trending troponins, no clear symptoms of cardiac causes could follow up as outpatient to get stress testing early this week. Patient preference is also to return home today. We do not have capability for stress testing tomorrow. Discussed with patient she has an appointment on Thursday with Dr. Pham will get her stress testing ordered for this coming week. She has also started her on aspirin, Plavix as well as increased her atorvastatin to 80 mg. Patient is comfortable with the plan. Discharge Plan Departure Patient Disposition: Home Clinical Impression: Weakness Discharge Date/Time: 04/01/19 12:44 Interventions: ED Discharge Assessment Last Done: 04/01/19 12:43 Instructions: Myocardial Perfusion Imaging Activity Restrictions/Additional Instructions: Follow up with your primary care physician Dr. Valentine on Thursday at your scheduled appointment. She is in process of getting you scheduled for stress testing for this coming week. Continue medications as prescribed and start medications, asa and plavix today. As well as your increased statin dose as prescribed by Dr. Pham today. Return to the emergency department for new or worsening symptoms, sudden severe headaches passing out, new chest pain, shortness of breath, worsening weakness, persistent vomiting, black or bloody stools or other new or concerning symptoms. Prescriptions: No Action Levemir FlexTouch U-100 Insuln 100 unit/mL (3 mL) insulin pen 20 units subcut BID RF: 0 metoprolol succinate 50 mg Tablet Extended Release 24 Hr 100 mg PO DAILY RF: 0 lisinopril 20 mg Tablet 20 mg PO DAILY RF: 0 amitriptyline 10 mg Tablet 30 mg PO BEDTIME PRN (Reason: depression) RF: 0 diazepam 5 mg Tablet 5 mg PO TID RF: 0 Referrals: Aretha Pham MD [Primary Care Provider] -
[2019-04-01 10:04] LABS: Add Manual Diff / Slide Review NO; Basophils Absolute Auto 100 /uL (0-100); Basophils Percent Auto 0.9 % (0-2); Eosinophils Absolute Auto 200 /uL (0-450); Eosinophils Percent Auto 2.3 % (2-4); Hematocrit 37.6 % (36-46); Lymphocytes Absolute Auto 1300 /uL (1100-4500); Lymphocytes Percent Auto 20.5 % (25-40); Mean Corpuscular HGB Conc 34.5 % (30-36); Mean Corpuscular Hemoglobin 32.5 PG (26-34); Mean Corpuscular Volume 94.3 fL (80-100); Monocytes Absolute Auto 500 /uL (0-900); Monocytes Percent Auto 7.9 % (3-14); Neutrophils Absolute Auto 4500 /uL (1500-7000); Neutrophils Percent Auto 68.4 % (50-75); Platelet Count 185 X10^3/uL (150-400); Red Blood Cell Count 3.99 X10^6/uL (4.0-5.2); Red Cell Distribution Width 12.8 % (11.6-14.8); White Blood Cell Count 6.6 X10^3/uL (4.5-11.0)
[2019-04-01 10:16] LABS: Alanine Aminotransferase 35 IU/L (9-52); Albumin 4.3 g/dL (3.5-5.0); Albumin Globulin Ratio 1.6 (1.0-2.8); Alkaline Phosphatase 129 U/L (38-126); Aspartate Aminotransferase 53 IU/L (14-36); BUN Creatinine Ratio 15.8 (6-22); Bilirubin Total 0.5 mg/dL (0.2-1.3); Blood Urea Nitrogen 19 mg/dL (7-17); Calcium 9.2 mg/dL (8.4-10.2); Carbon Dioxide 30 mmol/L (22-32); Chloride 99 mmol/L (98-107); Creatine Kinase 195 U/L (30-135); Estimated Glomerular Filt Rate 43.6 mL/min (>60); Globulin 2.7 g/dL (1.7-4.1); Glucose 159 mg/dL (80-110); HEMOLYSIS < 15 (0-50); Lipase 83 U/L (23-300); Potassium 4.2 mmol/L (3.4-5.1); Sodium 139 mmol/L (137-145)
[2019-04-01] MEDS: ASPIRIN 81 MG TAB 324 MG PO (10:24)
[2019-04-01] MEDS: SODIUM CHLORIDE 0.9% 1,000 ML 150 ML IV (10:28)
[2019-04-01 10:30] VITALS: BP 153/68; PULSE 60; RESP 14; O2SAT 98
[2019-04-01 10:32] LABS: CKMB % Relative Index 0.9 % (1.5-5.0); Creatine Kinase MB 1.76 ng/mL (<2.37)
[2019-04-01 11:00] VITALS: BP 147/67; PULSE 60; RESP 15; O2SAT 100
--- NOTE | 2019-04-01 11:07 | PC.NURSE ---
Patient reports leg weakness and pain, bilateral and possibly more in the left leg. Seen here and had negative workup. Saw PCP who ordered a full cardiac workup. Today symptoms are resolving. 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
[2019-04-01 11:30] VITALS: BP 154/71; PULSE 57; RESP 13; O2SAT 97
[2019-04-01 12:30] VITALS: BP 166/73; PULSE 55; RESP 97
== END 2019-04-01 12:44 | disposition home or self-care (01) ==
PROVIDERS: Emergency Provider Emergency Medicine; PCP Student in an Organized Health Care Education/Training Program
DX: R53.1 Weakness (principal); R03.0 Elevated blood-pressure reading, without diagnosis of hypertension; R07.9 Chest pain, unspecified; R79.89 Other specified abnormal findings of blood chemistry; I77.89 Other specified disorders of arteries and arterioles
CPT/HCPCS: 36591; 71045; 80053; 82550; 82553; 83690; 84484; 85025; 93005; 93306; 96360; 96361; 99283; 99285

== ENCOUNTER → 2019-04-21 13:31 | Outpatient (CLI) | payer MEDICARE, OTHER, SELFPAY ==
[2018-02-11 05:38] VITALS: BMI 24.6
--- NOTE | 2019-04-21 14:59 | PM.TREADMILL ---
Cardiac Stress Test Report Referral & Results Date Patient Seen: 04/21/19 Requesting provider: Aretha Pham Indication: Inferior [place] Rest ECG: Unremarkable Procedure Note: Today following both written and verbal informed consent, the patient was exercised according to a standard Presley protocol. The patient exercised for a total of 3 minutes 22 seconds achieving a maximum heart rate of 170 for. Patient's maximum systolic blood pressure was 230. This was an estimated 4.6 MET's. Patient was barely able to keep up the treadmill at the 1st stage of Presley protocol speed and therefore the test was discontinued at the end of that stage. Patient was tachycardic at rest and peak heart rate was certainly tachycardic. Patient's blood pressure was elevated with peak blood pressure is being significantly elevated No clear ST-T segment changes were identified. In mid recovery patient did have isolated ST segment drooping in V6 only. Functional aerobic impairment rates about 10% on the sedentary scale Impression: No clear evidence of ischemia Limited exercise capacity Tachycardic and hypertensive as above Clinical correlation suggested. If clinical concern warrants this test could be repeated with pharmacological stress rather than exercise stress. Please note: Actual ECG tracings can be found in the PACS system.
== END ==
PROVIDERS: PCP Student in an Organized Health Care Education/Training Program; Visit Provider Student in an Organized Health Care Education/Training Program
DX: I21.19 ST elevation (STEMI) myocardial infarction involving other coronary artery of inferior wall (principal); R00.0 Tachycardia, unspecified; I10 Essential (primary) hypertension
CPT/HCPCS: 93016; 93017; 93018

== ENCOUNTER → 2019-05-16 13:37 | Outpatient (CLI) | payer MEDICARE, OTHER, SELFPAY ==
[2018-02-11 05:38] VITALS: BMI 24.6
--- NOTE | 2019-05-16 | DI.MG.S_ITS ---
BILATERAL DIGITAL SCREENING MAMMOGRAM 3D/2D WITH CAD: 05/16/2019 CLINICAL: Routine screening. Family history of breast cancer. Comparison is made to exams dated: 04/13/2018 mammogram, 04/03/2017 mammogram, and 02/05/2016 mammogram - [facility]. The tissue of both breasts is heterogeneously dense. This may lower the sensitivity of mammography. Current study was also evaluated with a Computer Aided Detection (CAD) system. No significant masses, calcifications, or other findings are seen in either breast. There has been no significant interval change. IMPRESSION: NEGATIVE There is no mammographic evidence of malignancy. A 1 year screening mammogram is recommended. This exam was interpreted at Station ID: [id number]. NOTE: For mammograms, a report in lay terms will be sent to the patient. Approximately 15% of breast malignancies will not be visualized mammographically. In the management of a palpable breast mass, a negative mammogram must not discourage biopsy of a clinically suspicious lesion. Electronically Signed By: Dilma roque/maral:05/16/2019 19:13:50 letter sent: Normal Exam ACR BI-RADS Category 1: Negative [id number]
== END ==
PROVIDERS: PCP Student in an Organized Health Care Education/Training Program; Visit Provider Student in an Organized Health Care Education/Training Program
DX: Z12.39 Encounter for other screening for malignant neoplasm of breast (principal); Z80.3 Family history of malignant neoplasm of breast
CPT/HCPCS: 77063; 77067

== ENCOUNTER → 2019-10-25 13:16 | Outpatient (CLI) | payer MEDICARE, OTHER, SELFPAY ==
[2018-02-11 05:38] VITALS: BMI 24.6
[2019-10-25 14:17] LABS: Hemoglobin A1C% w Est Avg Glu 8.2 % (4.0-6.0)
[2019-10-25 14:18] LABS: Alanine Aminotransferase 25 IU/L (<35); Albumin 4.3 g/dL (3.5-5.0); Albumin Globulin Ratio 1.5 (1.0-2.8); Alkaline Phosphatase 133 U/L (38-126); Aspartate Aminotransferase 49 IU/L (14-36); BUN Creatinine Ratio 16.7 (6-22); Bilirubin Total 0.3 mg/dL (0.2-1.3); Blood Urea Nitrogen 20 mg/dL (7-17); Calcium 8.9 mg/dL (8.4-10.2); Carbon Dioxide 27 mmol/L (22-32); Chloride 96 mmol/L (98-107); Cholesterol 116 mg/dL (140-199); Estimated Glomerular Filt Rate 43.4 mL/min (>60); Globulin 2.9 g/dL (1.7-4.1); Glucose 155 mg/dL (80-110); HDL Cholesterol 48 mg/dL (40-60); HEMOLYSIS < 15 (0-50); LDL Cholesterol Calculated 41 mg/dL (<100); Potassium 3.8 mmol/L (3.4-5.1); Sodium 136 mmol/L (137-145); Total Protein 7.2 g/dL (6.3-8.2); Triglycerides 137 mg/dL (35-150)
[2019-10-25 15:12] LABS: TSH w/ Reflex to FT4 2.71 uIU/mL (0.47-4.68)
== END ==
PROVIDERS: PCP Internal Medicine; Referring Provider Internal Medicine; Visit Provider Internal Medicine
DX: E03.9 Hypothyroidism, unspecified (principal); I10 Essential (primary) hypertension; E11.9 Type 2 diabetes mellitus without complications; E78.5 Hyperlipidemia, unspecified
CPT/HCPCS: 36415; 80053; 80061; 83036; 84443

== ENCOUNTER 2019-11-02 04:30 | Emergency (ER) | payer MEDICARE, OTHER, SELFPAY ==
[2018-02-11 05:38] VITALS: BMI 24.6
[2019-11-02 04:39] VITALS: BP 195/77; PULSE 73; RESP 16; TEMP 36.9; O2SAT 98; BMI 24.9
--- NOTE | 2019-11-02 04:39 | DI.RAD.S_ITS ---
PROCEDURE: XR CHEST 2V INDICATIONS: weakness TECHNIQUE: 2 views of the chest were acquired. COMPARISON: [facility], , CHEST 2 VIEW, 03/08/2016, 11:55. [facility], , XR CHEST 1V, 04/01/2019, 9:49. FINDINGS: Surgical changes and devices: None. Lungs and pleura: There is a new 2.0 cm rounded opacity projecting over the left lower lobe on both projections. Remainder of the visualized lungs are clear. No pleural effusions or pneumothorax. Mediastinum: Mediastinal contours are normal. Heart size is normal. Bones and chest wall: No suspicious bony abnormalities. Soft tissues appear unremarkable. IMPRESSION: New 2.0 cm rounded opacity in the left lower lobe not seen on prior imaging. Recommend further evaluation with dedicated CT of the chest. Dictated by: Bernardo Cabezas M.D. on 11/02/2019 at 8:51 Approved by: Bernardo Cabezas M.D. on 11/02/2019 at 8:55
--- NOTE | 2019-11-02 04:45 | ED_ITS ---
HPI - Extremity Problem General Chief complaint: Weakness Stated complaint: Increased weakness Time Seen by Provider: 11/02/19 04:38 Source: patient and EMS Mode of arrival: EMS Limitations: no limitations History of Present Illness HPI Narrative: 71-year-old female former smoker with history of diabetes, hypertension and anxiety presents by EMS due to generalized weakness that started last evening. She had been out and about with her yesterday, normally ambulates with a cane and had no symptoms until the evening when she started feeling a bit generally weak. She went to bed at her normal time and aw clare at 3:00 a.m. to go to the bathroom and found herself to be profoundly weak in her lower extremities. She denies any runny nose, sore throat or cough. She denies any change in her medications or recent changes in her activity. Related Data Home Medications Medication Instructions Recorded Confirmed amitriptyline 30 mg PO BEDTIME PRN 02/11/18 04/01/19 diazepam 5 mg PO TID 02/11/18 04/01/19 lisinopril 20 mg PO DAILY 02/11/18 04/01/19 metoprolol succinate 100 mg PO DAILY 02/11/18 04/01/19 insulin detemir U-100 [Levemir 20 units SUBCUT BID 03/30/19 04/01/19 FlexTouch U-100 Insuln] Allergies Allergy/AdvReac Type Severity Reaction Status Date / Time oxycodone [From Percocet] AdvReac Nausea Verified 03/30/19 14:33 Review of Systems Constitutional Constitutional: Denies chills, Denies fatigue, Denies fever(s), Denies frequent falls, Denies lethargy and Reports weakness Eyes Eyes: Denies change in vision, Denies eye discharge, Denies irritation and Denies loss of vision ENT Ears, Nose, Mouth, and Throat: Denies change in voice, Denies dizziness, Denies neck pain, Denies sore throat and Denies throat swelling Cardiovascular Cardiovascular: Denies chest pain, Denies irregular heart rhythm, Denies lightheadedness, Denies palpitations, Denies dyspnea, Denies dyspnea on exertion and Denies orthopnea Respiratory Respiratory: Denies cough, Denies dyspnea, Denies dyspnea on exertion and Denies wheezing Gastrointestinal Gastrointestinal: Denies abdominal pain, Denies change in bowel habits, Denies diarrhea, Denies nausea and Denies vomiting Genitourinary Genitourinary: Denies hematuria, Denies flank pain, Denies urinary incontinence and Denies urinary urgency Musculoskeletal Musculoskeletal: Denies back pain, Denies muscle weakness, Denies neck pain, Denies numbness and Denies tingling Integumentary/Breasts Skin/Breast: Denies pruritus, Denies erythema, Denies rash and Denies wounds Neurologic Neurologic: Denies behavioral changes, Denies confusion, Denies dizziness, Denies frequent falls, Denies loss of vision, Denies numbness, Denies tingling and Reports weakness Psychiatric Psychiatric: Denies anxiety, Denies behavioral changes, Denies confusion, Denies depression, Denies homicidal ideation and Denies suicidal ideation Endocrine Endocrine: Denies fatigue, Denies flushing and Denies palpitations Hematologic/Lymphatic Hematologic/Lymphatic: Denies easy bruising Allergic/Immunologic Allergic/Immunologic: Denies urticaria, Denies throat swelling and Denies wheezing Patient History Social History household members: spouse lives independently: Yes Smoking Status: Former smoker alcohol intake: current Smoking Status: Former smoker alcohol intake frequency: 3 or more drinks per day Alcohol type: wine Substance Use Type: does not use Exam Narrative Exam Narrative: GENERAL: [79] year old patient appears stated age. Well- nourished, well-developed patient, in mild distress. HEAD: Atraumatic. Normocephalic. EYES: Pupils equal round and reactive. Extraocular motions intact. No scleral icterus. No injection or drainage. ENT: Nose without bleeding, purulent drainage. Throat without erythema, tonsillar hypertrophy or exudate. Airway patent. NECK: Trachea midline. Non tender CARDIOVASCULAR: Regular rate and rhythm without murmurs, gallops, or rubs. RESPIRATORY: Clear to auscultation. Breath sounds equal bilaterally. No wheezes, rales, or rhonchi. GASTROINTESTINAL: Abdomen soft, non-tender, nondistended. EXTREMITIES: No edema or joint tenderness. BACK: Nontender without deformity or crepitance. No flank tenderness. NEURO: AOx3. SKIN: No rash or erythema of visible areas Initial Vital Signs Initial Vital Signs: Vital Signs Temperature 98.5 F 11/02/19 04:39 Pulse Rate 73 11/02/19 04:39 Respiratory Rate 16 11/02/19 04:39 Blood Pressure 195/77 H 11/02/19 04:39 Pulse Oximetry 98 11/02/19 04:39 Course Orders Ordered: Discontinued Medications Sodium Chloride (Normal Saline 0.9%) 1,000 mls @ 1,000 mls/hr IV BOLUS ONE Stop: 11/02/19 05:37 Last Infusion: 11/02/19 06:17 Dose: 1,000 mls/hr Documented by: Admin: 11/02/19 04:46 Dose: 1,000 mls/hr Documented by: MICHAEL Vital Signs Vital signs: Vital Signs - 8 hr 11/02/19 04:39 11/02/19 05:00 Temperature 98.5 F Pulse Rate 73 64 Respiratory Rate 16 16 Blood Pressure 195/77 H Blood Pressure [Right Arm] 182/78 H Pulse Oximetry 98 99 MDM - Extremity (Nontraumatic) Lab Data Result diagrams: 11/02/19 04:35 11/02/19 04:35 Labs: Lab Results 11/02/19 11/02/19 Range/Units 04:35 04:35 WBC 7.9 (4.5-11.0) X10^3/uL RBC 4.05 (4.0-5.2) X10^6/uL Hgb 12.9 (12.0-16.0) g/dL Hct 38.2 (36-46) % MCV 94.2 (80-100) fL MCH 31.8 (26-34) PG MCHC 33.8 (30-36) % RDW 13.1 (11.6-14.8) % Plt Count 279 (150-400) X10^3/uL Neut % (Auto) 62.0 (50-75) % Lymph % (Auto) 25.5 (25-40) % [place] % (Auto) 8.7 (3-14) % Eos % (Auto) 2.9 (2-4) % Baso % (Auto) 0.9 (0-2) % Neut # (Auto) 4900 (2464-6711) /uL Lymph # (Auto) 2000 (2573-4196) /uL [place] # (Auto) 700 (0-900) /uL Eos # (Auto) 200 (0-450) /uL Baso # (Auto) 100 (0-100) /uL Sodium 136 L (137-145) mmol/L Potassium 4.2 (3.4-5.1) mmol/L Chloride 98 (98-107) mmol/L Carbon Dioxide 26 (22-32) mmol/L BUN 22 H (7-17) mg/dL Creatinine 1.20 H (0.52-1.04) mg/dL Estimated GFR 43.4 L (>60) mL/min BUN/Creatinine Ratio 18.3 (6-22) Glucose 163 H (80-110) mg/dL Calcium 9.5 (8.4-10.2) mg/dL Total Creatine Kinase 44 (30-135) U/L CK-MB (CK-2) TNP CK-MB (CK-2) Rel Index TNP Troponin I < 0.012 (0.01-0.034) ng/mL Urine Dip Bedside Urine Glucose Negative Bedside Urine Bilirubin - Negative Bedside Urine Ketone - Negative Urine Specific [place] 1.015 Bedside Urine Occult Blood - Negative Bedside Urine pH 6.0 Bedside Urine Protein - Negative Bedside Urine Urobilinogen - Negative Bedside Urine Nitrite - Negative Bedside Urine Leukocytes - Negative Esterase Discharge Plan Departure Patient Disposition: Home Clinical Impression: Weakness Discharge Date/Time: 11/02/19 07:54 Instructions: DI for Muscle Weakness Activity Restrictions/Additional Instructions: *You have been diagnosed with [acute generalized weakness ] *What to do: *Take medications as directed *Follow up with your primary care provider in 2-3 days, call for an appointment. Let them know you were seen in the Emergency Department and that we ask that you be seen in follow up. Your chest xray noted an abnormal finding which should be followed by an outpatient Chest CT which can be ordered by your primary care doctor. *Return to ER if you should have any new, worsening or concerning symptoms Prescriptions: No Action Levemir FlexTouch U-100 Insuln 100 unit/mL (3 mL) insulin pen 20 units subcut BID RF: 0 metoprolol succinate 50 mg Tablet Extended Release 24 Hr 100 mg PO DAILY RF: 0 lisinopril 20 mg Tablet 20 mg PO DAILY RF: 0 amitriptyline 10 mg Tablet 30 mg PO BEDTIME PRN (Reason: depression) RF: 0 diazepam 5 mg Tablet 5 mg PO TID RF: 0 Referrals: Jeevan Cummins MD [Primary Care Provider] -
[2019-11-02] MEDS: SODIUM CHLORIDE 0.9% 1,000 ML 1000 ML IV (04:46)
[2019-11-02 04:54] LABS: Add Manual Diff / Slide Review NO; Basophils Absolute Auto 100 /uL (0-100); Basophils Percent Auto 0.9 % (0-2); Eosinophils Absolute Auto 200 /uL (0-450); Eosinophils Percent Auto 2.9 % (2-4); Hematocrit 38.2 % (36-46); Hemoglobin 12.9 g/dL (12.0-16.0); Lymphocytes Absolute Auto 2000 /uL (1100-4500); Lymphocytes Percent Auto 25.5 % (25-40); Mean Corpuscular HGB Conc 33.8 % (30-36); Mean Corpuscular Hemoglobin 31.8 PG (26-34); Mean Corpuscular Volume 94.2 fL (80-100); Monocytes Absolute Auto 700 /uL (0-900); Monocytes Percent Auto 8.7 % (3-14); Neutrophils Absolute Auto 4900 /uL (1500-7000); Platelet Count 279 X10^3/uL (150-400); Red Blood Cell Count 4.05 X10^6/uL (4.0-5.2); Red Cell Distribution Width 13.1 % (11.6-14.8); White Blood Cell Count 7.9 X10^3/uL (4.5-11.0)
[2019-11-02 04:59] LABS: BUN Creatinine Ratio 18.3 (6-22); Blood Urea Nitrogen 22 mg/dL (7-17); Calcium 9.5 mg/dL (8.4-10.2); Carbon Dioxide 26 mmol/L (22-32); Chloride 98 mmol/L (98-107); Creatine Kinase 44 U/L (30-135); Estimated Glomerular Filt Rate 43.4 mL/min (>60); Glucose 163 mg/dL (80-110); HEMOLYSIS < 15 (0-50); Potassium 4.2 mmol/L (3.4-5.1); Sodium 136 mmol/L (137-145)
[2019-11-02 05:00] VITALS: BP 182/78; PULSE 64; RESP 16; O2SAT 99
[2019-11-02 05:11] LABS: Troponin I < 0.012 ng/mL (0.01-0.034)
[2019-11-02 06:12] VITALS: BP 195/90; PULSE 66; RESP 17; O2SAT 98
[2019-11-02 06:34] VITALS: BP 141/81; BP 166/72; BP 191/78; PULSE 66; PULSE 70
[2019-11-02 06:51] VITALS: BP 182/81; PULSE 68
[2019-11-02 07:53] VITALS: BP 182/76; PULSE 67; RESP 18; O2SAT 99
== END 2019-11-02 07:54 | disposition home or self-care (01) ==
PROVIDERS: Emergency Provider Emergency Medicine; PCP Internal Medicine
DX: R53.1 Weakness (principal)
CPT/HCPCS: 36415; 71046; 80048; 81003; 82550; 84484; 85025; 93005; 96360; 96361; 99284; 99285

== ENCOUNTER → 2019-11-10 11:39 | Outpatient (CLI) | payer MEDICARE, OTHER, SELFPAY ==
[2018-02-11 05:38] VITALS: BMI 24.6
--- NOTE | 2019-11-10 11:57 | DI.CT.S_ITS ---
PROCEDURE: CT CHEST W CON INDICATIONS: ABNORMAL CHEST XRAY. WEAKNESS TECHNIQUE: After the administration of intravenous contrast, 5 mm thick sections acquired from the pulmonary apices to the posterior costophrenic angles. 1 mm axial lung, 5 mm thick coronal and sagittal reformats and 7 mm axial MIP were acquired. For radiation dose reduction, the following was used: automated exposure control, adjustment of mA and/or kV according to patient size. COMPARISON: [facility], , XR CHEST 2V, 11/02/2019, 4:37. FINDINGS: Image quality: Excellent. Lungs and pleura: No acute air space opacities. No pleural effusions or pneumothorax. Central and peripheral airways are patent and normal in caliber. Mediastinum: Heart size is normal. No pericardial effusion. No mediastinal or hilar adenopathy by size criteria. Thoracic aorta and central pulmonary arteries are normal in size. Esophagus is normal in caliber. No hiatal hernia. Bones and chest wall: No suspicious bony lesions. No vertebral body compression fractures. No axillary or supraclavicular adenopathy by size criteria. Thyroid gland appears normal where well seen. The left nipple is asymmetrically more prominent than that on the right. Abdomen: Visualized upper abdominal solid organs appear normal. Upper abdominal bowel loops are normal in caliber. IMPRESSION: Normal anatomic variant prominence of the left nipple when compared with that on the right appears to explain the radiodensity seen on the frontal projection in that area superimposed on the dome of the diaphragm. No mass lesion is seen posteriorly. No followup recommended. Dictated by: Tito Mckeon M.D. on 11/10/2019 at 12:35 Approved by: Tito Mckeon M.D. on 11/10/2019 at 12:38
== END ==
PROVIDERS: PCP Internal Medicine; Referring Provider Internal Medicine; Visit Provider Internal Medicine
DX: R93.89 Abnormal findings on diagnostic imaging of other specified body structures (principal); R53.1 Weakness
CPT/HCPCS: 71260; Q9967

== ENCOUNTER → 2019-11-25 10:10 | Outpatient (CLI) | payer MEDICARE, OTHER, SELFPAY ==
[2018-02-11 05:38] VITALS: BMI 24.6
[2019-11-25 10:54] LABS: Alanine Aminotransferase 23 IU/L (<35); Albumin 4.8 g/dL (3.5-5.0); Albumin Globulin Ratio 1.7 (1.0-2.8); Alkaline Phosphatase 171 U/L (38-126); Aspartate Aminotransferase 41 IU/L (14-36); BUN Creatinine Ratio 18.2 (6-22); Bilirubin Total 0.7 mg/dL (0.2-1.3); Blood Urea Nitrogen 20 mg/dL (7-17); Carbon Dioxide 27 mmol/L (22-32); Chloride 87 mmol/L (98-107); Globulin 2.8 g/dL (1.7-4.1); Glucose 183 mg/dL (80-110); HEMOLYSIS < 15 (0-50); Potassium 3.9 mmol/L (3.4-5.1); Sodium 127 mmol/L (137-145); Total Protein 7.6 g/dL (6.3-8.2)
[2019-11-25 11:04] LABS: Free T4, Direct Thyroxine 1.22 ng/dL (0.78-2.19)
[2019-11-25 11:18] LABS: Thyroid Stimulating Hormone 5.76 uIU/mL (0.47-4.68)
[2019-11-29 16:02] LABS: Triiodothyronine T3 Total 91 ng/dL (76-181)
== END ==
PROVIDERS: PCP Internal Medicine; Referring Provider Internal Medicine; Visit Provider Internal Medicine
DX: E03.9 Hypothyroidism, unspecified (principal)
CPT/HCPCS: 36415; 80053; 84439; 84443; 84480

== ENCOUNTER 2019-11-26 13:26 | Emergency (ER) | payer MEDICARE, OTHER, SELFPAY ==
[2018-02-11 05:38] VITALS: BMI 24.6
[2019-11-26] VITALS (8 sets, daily range): BP systolic 150–216; BP diastolic 70–100; PULSE 69–79; RESP 16–20; TEMP 37; O2SAT 94–99; BMI 24.5
--- NOTE | 2019-11-26 14:49 | DI.RAD.S_ITS ---
PROCEDURE: XR CHEST 1V INDICATIONS: chest pain TECHNIQUE: One view of the chest was acquired. COMPARISON: [facility], CR, XR CHEST 2V, 11/02/2019, 4:37. FINDINGS: Surgical changes and devices: None. Lungs and pleura: Lungs are clear. No pleural effusions or pneumothorax. Mediastinum: Mediastinal contours appear normal. Heart size is normal. Bones and chest wall: No suspicious bony lesions. Overlying soft tissues appear unremarkable. IMPRESSION: No acute cardiopulmonary findings. Dictated by: Leanne Baird M.D. on 11/26/2019 at 15:03 Approved by: Leanne Baird M.D. on 11/26/2019 at 15:03
--- NOTE | 2019-11-26 15:08 | PC.NURSE ---
pt and spouse reports, onset of chills and shaking last night with altered mental status, unable to finish sentence. dizziness, heart racing, with hx of anxiety. denies fever,vomiting or diarrhea, bm yesterday and today.
[2019-11-26 15:30] LABS: Add Manual Diff / Slide Review NO; Basophils Absolute Auto 100 /uL (0-100); Eosinophils Absolute Auto 100 /uL (0-450); Eosinophils Percent Auto 1.4 % (2-4); Hematocrit 41.4 % (36-46); Hemoglobin 14.4 g/dL (12.0-16.0); Lymphocytes Absolute Auto 1500 /uL (1100-4500); Lymphocytes Percent Auto 15.8 % (25-40); Mean Corpuscular HGB Conc 34.9 % (30-36); Mean Corpuscular Hemoglobin 31.9 PG (26-34); Mean Corpuscular Volume 91.6 fL (80-100); Monocytes Absolute Auto 800 /uL (0-900); Neutrophils Absolute Auto 7100 /uL (1500-7000); Neutrophils Percent Auto 73.8 % (50-75); Platelet Count 383 X10^3/uL (150-400); Red Blood Cell Count 4.52 X10^6/uL (4.0-5.2); Red Cell Distribution Width 13.2 % (11.6-14.8); White Blood Cell Count 9.6 X10^3/uL (4.5-11.0)
[2019-11-26 15:34] LABS: INR 0.9 (0.9-1.3); Prothrombin Time 10.4 SECONDS (10.1-12.7)
[2019-11-26 15:37] LABS: PTT Partial Thromboplastin Tim 30 SECONDS (26.4-36.2)
[2019-11-26 15:40] LABS: Alanine Aminotransferase 26 IU/L (<35); Albumin 5.1 g/dL (3.5-5.0); Albumin Globulin Ratio 1.6 (1.0-2.8); Alkaline Phosphatase 178 U/L (38-126); Aspartate Aminotransferase 45 IU/L (14-36); BUN Creatinine Ratio 16.4 (6-22); Bilirubin Total 0.6 mg/dL (0.2-1.3); Blood Urea Nitrogen 23 mg/dL (7-17); Carbon Dioxide 28 mmol/L (22-32); Chloride 88 mmol/L (98-107); Creatine Kinase 70 U/L (30-135); Estimated Glomerular Filt Rate 36.4 mL/min (>60); Globulin 3.2 g/dL (1.7-4.1); Glucose 167 mg/dL (80-110); HEMOLYSIS < 15 (0-50); Potassium 3.4 mmol/L (3.4-5.1); Sodium 129 mmol/L (137-145); Total Protein 8.3 g/dL (6.3-8.2)
[2019-11-26 15:50] LABS: Troponin I < 0.012 ng/mL (0.01-0.034)
--- NOTE | 2019-11-26 16:05 | DI.CT.S_ITS ---
PROCEDURE: CT HEAD/BRAIN WO CON INDICATIONS: glf, hit head TECHNIQUE: Noncontrast 4.5 mm thick angled axial sections acquired from the foramen magnum to the vertex, with coronal and sagittal reformats. For radiation dose reduction, the following was used: automated exposure control, adjustment of mA and/or kV according to patient size. COMPARISON: [facility], CT, CT HEAD/BRAIN WO CON, 03/30/2019, 16:54. FINDINGS: Image quality: Excellent. CSF spaces: Basal cisterns are patent. No extra-axial fluid collections. The ventricles are symmetric in size and shape. Brain: No intracranial bleeds or masses. There is cerebral volume loss for age, with resultant ventricular and sulcal prominence. There are periventricular and deep white matter chronic small vessel ischemic changes. There is intracranial internal carotid artery atherosclerosis. Skull and face: Calvarium and visualized facial bones appear intact, without suspicious lesions. Sinuses: Visualized sinuses and mastoids are clear. IMPRESSION: 1. No acute intracranial findings. 2. Findings likely associated with chronic microvascular ischemic change. Dictated by: Leanne Baird M.D. on 11/26/2019 at 15:48 Approved by: Leanne Baird M.D. on 11/26/2019 at 15:51
[2019-11-26 16:06] LABS: Ethanol (ETOH) < 10 mg/dL
[2019-11-26] MEDS: SODIUM CHLORIDE 0.9% 1,000 ML 1000 ML IV (16:21)
[2019-11-26] MEDS: hydrOXYzine pamoate 25 MG CAPSULE 50 MG PO (18:35)
[2019-11-26 18:46] LABS: UR Morphine/Opiate cutoff 300 Negative (Negative); Ur Creatinine 20 (Normal); Ur Specific Gravity 1.015 (Normal); Urine Amphetamines Negative (Negative); Urine Barbiturates Negative (Negative); Urine Benzodiazepines Positive (Negative); Urine Cocaine Negative (Negative); Urine MDMA Negative (Negative); Urine Methadone Negative (Negative); Urine Methamphetamines Negative (Negative); Urine Phencyclidine Negative (Negative); Urine Tetrahydrocannabinol Negative (Negative); Urine Tricyclic Antidepressant Positive (Negative); Urine pH 7 (Normal)
[2019-11-26 18:47] LABS: Urine Oxycodone Negative (Negative)
[2019-11-26] MEDS: LORazepam 0.5 MG TABLET 1 MG PO (19:11)
--- NOTE | 2019-11-26 20:16 | ED_ITS ---
HPI - Weakness <FARZAD Landaverde-BC - Last Filed: 11/26/19 20:23> General Chief complaint: Weakness Stated complaint: Shakey, Confused, Woozy Time Seen by Provider: 11/26/19 15:20 Source: patient and family Mode of arrival: Ambulatory Limitations: no limitations History of Present Illness HPI Narrative: The patient is a 79-year-old female former smoker with history of diabetes and anxiety who presents with multiple complaints including being shaky, feeling woozy, and feeling like she is ?fretting.She reports a fall a few days ago where she hit her head, denies any loss of consciousness neck pain or back pain. She does not take she denies any chest pain or shortness of breath. She does complain of some palpitations. She denies any abdominal pain nausea vomiting or diarrhea. She states she had a bowel movement yesterday and today. She does complain of some shaking and chills last night. She states she was too anxious to finish a sentence. Related Data Home Medications Medication Instructions Recorded Confirmed amitriptyline 30 mg PO BEDTIME PRN 02/11/18 04/01/19 diazepam 5 mg PO TID 02/11/18 04/01/19 lisinopril 20 mg PO DAILY 02/11/18 04/01/19 metoprolol succinate 100 mg PO DAILY 02/11/18 04/01/19 insulin detemir U-100 [Levemir 20 units SUBCUT BID 03/30/19 04/01/19 FlexTouch U-100 Insuln] Allergies Allergy/AdvReac Type Severity Reaction Status Date / Time oxycodone [From Percocet] AdvReac Nausea Verified 11/26/19 14:03 Review of Systems <GIOVANNI LandaverdeBC - Last Filed: 11/26/19 20:23> Review of Systems Narrative: GENERAL: See HPI HEENT: Denies sinus pain, ear pain, sore throat, difficulty swallowing, dizziness. RESPIRATORY: Denies dyspnea, cough, wheezing, hemoptysis, sputum. CARDIOVASCULAR: see HPI GASTROINTESTINAL: Denies nausea, vomiting, abdominal pain, diarrhea, constipation, melena. : Denies dysuria, frequency, incontinence, hematuria, urinary retention. MUSCULOSKELETAL: denies weakness, joint pain, or bony pain SKIN: Denies rash, skin lesions, or other NEUROLOGIC: See HPI PSYCHIATRIC: See HPI 12 point review of systems is negative except for those stated above Patient History <FRANCESCA Landaverde - Last Filed: 11/26/19 20:23> Medical History Anxiety (Acute) Cellulitis of hand, right (Acute) Diabetes type 2, controlled (Acute) Hypertension (Acute) Social History household members: spouse lives independently: Yes Smoking Status: Former smoker alcohol intake: current Smoking Status: Former smoker alcohol intake frequency: 3 or more drinks per day Alcohol type: wine Substance Use Type: does not use Exam <FRANCESCA Landaverde - Last Filed: 11/26/19 20:23> Narrative Exam Narrative: GENERAL: Elderly female in no acute distress HEAD: Atraumatic. Normocephalic. No temporal or scalp tenderness. EYES: Pupils equal round and reactive. Extraocular motions intact. No scleral icterus. No injection or drainage. ENT: Nose without bleeding, purulent drainage or septal hematoma. Throat without erythema, tonsillar hypertrophy or exudate. Uvula midline. Airway patent. NECK: Trachea midline. No JVD or lymphadenopathy. Supple, nontender, no meningeal signs. CARDIOVASCULAR: Regular rate and rhythm RESPIRATORY: Clear to auscultation. Breath sounds equal bilaterally. No wheezes, rales, or rhonchi. No cough. No increased respiratory effort. No accessory muscle use. GASTROINTESTINAL: Abdomen soft, non-tender, nondistended. No hepato- splenomegaly, or palpable masses. No guarding. EXTREMITIES: No clubbing, cyanosis, or edema. No joint tenderness, effusion, or edema noted. BACK: Nontender without deformity or crepitance. No flank tenderness. NEURO: AOx3. Clear speech. Interactive. Age appropriate. SKIN: No rash or erythema on visible skin Initial Vital Signs Initial Vital Signs: Vital Signs Temperature 98.6 F 11/26/19 13:56 Pulse Rate 72 11/26/19 13:56 Respiratory Rate 18 11/26/19 13:56 Blood Pressure 188/77 H 11/26/19 13:56 Pulse Oximetry 99 11/26/19 13:56 <Janae Garay MD - Last Filed: 11/27/19 08:49> Initial Vital Signs Initial Vital Signs: Vital Signs Temperature 98.6 F 11/26/19 13:56 Pulse Rate 72 11/26/19 13:56 Respiratory Rate 18 11/26/19 13:56 Blood Pressure 188/77 H 11/26/19 13:56 Pulse Oximetry 99 11/26/19 13:56 Scores <FRANCESCA Landaverde - Last Filed: 11/26/19 20:23> GCS Ferdinand coma scale eye opening: Spontaneous Ferdinand coma scale verbal response: Orientated Jeff coma scale motor response: Obey commands Ferdinand coma scale total score: 15 Course <FRANCESCA Landaverde - Last Filed: 11/26/19 20:23> Orders Ordered: Discontinued Medications Hydroxyzine Pamoate (Vistaril) 50 mg PO NOW ONE Stop: 11/26/19 18:22 Last Admin: 11/26/19 18:35 Dose: 50 mg Documented by: PHYLLIS Sodium Chloride (Normal Saline 0.9%) 1,000 mls @ 1,000 mls/hr IV BOLUS ONE Stop: 11/26/19 16:42 Last Infusion: 11/26/19 18:43 Dose: 0 mls/hr Documented by: Admin: 11/26/19 16:21 Dose: 1,000 mls/hr Documented by: PHYLLIS Lorazepam (Ativan) 1 mg PO NOW ONE Stop: 11/26/19 19:03 Last Admin: 11/26/19 19:11 Dose: 1 mg Documented by: PHYLLIS Vital Signs Vital signs: Vital Signs - 8 hr 11/26/19 13:56 11/26/19 16:51 11/26/19 17:00 Temperature 98.6 F Pulse Rate 72 79 79 Respiratory Rate 18 18 16 Blood Pressure 188/77 H Blood Pressure [Left Arm] 186/81 H 165/79 H Pulse Oximetry 99 99 99 11/26/19 17:30 11/26/19 18:12 11/26/19 18:41 Temperature Pulse Rate 78 75 73 Respiratory Rate 16 20 20 Blood Pressure Blood Pressure [Left Arm] 169/78 H 216/100 H 205/93 H Pulse Oximetry 99 99 99 <Janae Garay MD - Last Filed: 11/27/19 08:49> Orders Ordered: Discontinued Medications Hydroxyzine Pamoate (Vistaril) 50 mg PO NOW ONE Stop: 11/26/19 18:22 Last Admin: 11/26/19 18:35 Dose: 50 mg Documented by: PHYLLIS Sodium Chloride (Normal Saline 0.9%) 1,000 mls @ 1,000 mls/hr IV BOLUS ONE Stop: 11/26/19 16:42 Last Infusion: 11/26/19 18:43 Dose: 0 mls/hr Documented by: Admin: 11/26/19 16:21 Dose: 1,000 mls/hr Documented by: PHYLLIS Lorazepam (Ativan) 1 mg PO NOW ONE Stop: 11/26/19 19:03 Last Admin: 11/26/19 19:11 Dose: 1 mg Documented by: PHYLLIS Vital Signs Vital signs: Vital Signs - 8 hr 11/26/19 13:56 11/26/19 16:51 11/26/19 17:00 Temperature 98.6 F Pulse Rate 72 79 79 Respiratory Rate 18 18 16 Blood Pressure 188/77 H Blood Pressure [Left Arm] 186/81 H 165/79 H Pulse Oximetry 99 99 99 11/26/19 17:30 11/26/19 18:12 11/26/19 18:41 Temperature Pulse Rate 78 75 73 Respiratory Rate 16 20 20 Blood Pressure Blood Pressure [Left Arm] 169/78 H 216/100 H 205/93 H Pulse Oximetry 99 99 99 MDM - Weakness <FARZAD Landaverde-BC - Last Filed: 11/26/19 20:23> Lab Data Result diagrams: 11/26/19 15:15 11/26/19 15:15 Labs: Lab Results 11/26/19 11/26/19 11/26/19 Range/Units 15:15 15:15 15:15 WBC 9.6 (4.5-11.0) X10^3/uL RBC 4.52 (4.0-5.2) X10^6/uL Hgb 14.4 (12.0-16.0) g/dL Hct 41.4 (36-46) % MCV 91.6 (80-100) fL MCH 31.9 (26-34) PG MCHC 34.9 (30-36) % RDW 13.2 (11.6-14.8) % Plt Count 383 (150-400) X10^3/uL Neut % (Auto) 73.8 (50-75) % Lymph % (Auto) 15.8 L (25-40) % [place] % (Auto) 8.0 (3-14) % Eos % (Auto) 1.4 L (2-4) % Baso % (Auto) 1.0 (0-2) % Neut # (Auto) 7100 H (6218-8721) /uL Lymph # (Auto) 1500 (5543-8014) /uL Durham # (Auto) 800 (0-900) /uL Eos # (Auto) 100 (0-450) /uL Baso # (Auto) 100 (0-100) /uL PT 10.4 (10.1-12.7) SECONDS INR 0.9 (0.9-1.3) APTT 30 (26.4-36.2) SECONDS Sodium 129 L (137-145) mmol/L Potassium 3.4 (3.4-5.1) mmol/L Chloride 88 L (98-107) mmol/L Carbon Dioxide 28 (22-32) mmol/L BUN 23 H (7-17) mg/dL Creatinine 1.40 H (0.52-1.04) mg/dL Estimated GFR 36.4 L (>60) mL/min BUN/Creatinine Ratio 16.4 (6-22) Glucose 167 H (80-110) mg/dL Calcium 10.0 (8.4-10.2) mg/dL Total Bilirubin 0.6 (0.2-1.3) mg/dL AST 45 H (14-36) IU/L ALT 26 (<35) IU/L Alkaline Phosphatase 178 H (38-126) U/L Total Creatine Kinase 70 (30-135) U/L CK-MB (CK-2) TNP CK-MB (CK-2) Rel Index TNP Troponin I < 0.012 (0.01-0.034) ng/mL Total Protein 8.3 H (6.3-8.2) g/dL Albumin 5.1 H (3.5-5.0) g/dL Globulin 3.2 (1.7-4.1) g/dL Albumin/Globulin Ratio 1.6 (1.0-2.8) U Opiates 300ng/mL cut (Negative) Ur Oxycodone Screen (Negative) Urine Methadone Screen (Negative) Ur Barbiturates Screen (Negative) U Tricyclic Antidepress (Negative) Ur Phencyclidine Scrn (Negative) Ur Amphetamines Screen (Negative) U Methamphetamines Scrn (Negative) Ur MDMA Scrn (Ecstasy) (Negative) U Benzodiazepines Scrn (Negative) Urine Cocaine Screen (Negative) U Marijuana (THC) Screen (Negative) Ethyl Alcohol ( - 10) mg/dL 11/26/19 11/26/19 Range/Units 15:25 18:20 WBC (4.5-11.0) X10^3/uL RBC (4.0-5.2) X10^6/uL Hgb (12.0-16.0) g/dL Hct (36-46) % MCV (80-100) fL MCH (26-34) PG MCHC (30-36) % RDW (11.6-14.8) % Plt Count (150-400) X10^3/uL Neut % (Auto) (50-75) % Lymph % (Auto) (25-40) % Durham % (Auto) (3-14) % Eos % (Auto) (2-4) % Baso % (Auto) (0-2) % Neut # (Auto) (5554-5308) /uL Lymph # (Auto) (9046-7948) /uL Durham # (Auto) (0-900) /uL Eos # (Auto) (0-450) /uL Baso # (Auto) (0-100) /uL PT (10.1-12.7) SECONDS INR (0.9-1.3) APTT (26.4-36.2) SECONDS Sodium (137-145) mmol/L Potassium (3.4-5.1) mmol/L Chloride (98-107) mmol/L Carbon Dioxide (22-32) mmol/L BUN (7-17) mg/dL Creatinine (0.52-1.04) mg/dL Estimated GFR (>60) mL/min BUN/Creatinine Ratio (6-22) Glucose (80-110) mg/dL Calcium (8.4-10.2) mg/dL Total Bilirubin (0.2-1.3) mg/dL AST (14-36) IU/L ALT (<35) IU/L Alkaline Phosphatase (38-126) U/L Total Creatine Kinase (30-135) U/L CK-MB (CK-2) CK-MB (CK-2) Rel Index Troponin I (0.01-0.034) ng/mL Total Protein (6.3-8.2) g/dL Albumin (3.5-5.0) g/dL Globulin (1.7-4.1) g/dL Albumin/Globulin Ratio (1.0-2.8) U Opiates 300ng/mL cut Negative (Negative) Ur Oxycodone Screen Negative (Negative) Urine Methadone Screen Negative (Negative) Ur Barbiturates Screen Negative (Negative) U Tricyclic Antidepress Positive H (Negative) Ur Phencyclidine Scrn Negative (Negative) Ur Amphetamines Screen Negative (Negative) U Methamphetamines Scrn Negative (Negative) Ur MDMA Scrn (Ecstasy) Negative (Negative) U Benzodiazepines Scrn Positive H (Negative) Urine Cocaine Screen Negative (Negative) U Marijuana (THC) Screen Negative (Negative) Ethyl Alcohol < 10 ( - 10) mg/dL Point of Care Testing Glucose POC 195 Urine Dip Bedside Urine Glucose Negative Bedside Urine Bilirubin - Negative Bedside Urine Ketone - Negative Urine Specific [place]on 1.010 Bedside Urine Occult Blood - Negative Bedside Urine pH 7.0 Bedside Urine Protein - Negative Bedside Urine Urobilinogen - Negative Bedside Urine Nitrite - Negative Bedside Urine Leukocytes - Negative Esterase Imaging Data CT scan - head: Radiologist Impression: [address] [id number] [address] Scan Report Signed Patient: Amanda Farah JMR#: [id number] : [id number]:[id number] Age/Sex: 79 / FDate of Service: 11/26/19 Loc: ED Accession Number: [id number] Procedure: CT head/brain wo con Ordering Provider: Debi Emanuel PROCEDURE: CT HEAD/BRAIN WO CON INDICATIONS: glf, hit head TECHNIQUE: Noncontrast 4.5 mm thick angled axial sections acquired from the foramen magnum to the vertex, with coronal and sagittal reformats. For radiation dose reduction, the following was used: automated exposure control, adjustment of mA and/or kV according to patient size. COMPARISON: [facility], CT, CT HEAD/BRAIN WO CON, 03/30/2019, 16:54. FINDINGS: Image quality: Excellent. CSF spaces: Basal cisterns are patent. No extra-axial fluid collections. The ventricles are symmetric in size and shape. Brain: No intracranial bleeds or masses. There is cerebral volume loss for age, with resultant ventricular and sulcal prominence. There are periventricular and deep white matter chronic small vessel ischemic changes. There is intracranial internal carotid artery atherosclerosis. Skull and face: Calvarium and visualized facial bones appear intact, without suspicious lesions. Sinuses: Visualized sinuses and mastoids are clear. IMPRESSION: 1. No acute intracranial findings. 2. Findings likely associated with chronic microvascular ischemic change. Dictated by: Leanne Baird M.D. on 11/26/2019 at 15:48 Approved by: Leanne Baird M.D. on 11/26/2019 at 15:51 Chest x-ray: Radiologist Impression: [address] [place] [id number] XRay Report Signed Patient: Amanda Farah JMR#: [id number] : [id number]:[id number] Age/Sex: 79 / FDate of Service: 11/26/19 Loc: ED Accession Number: [id number] Procedure: XR chest 1V Ordering Provider: Janae Garay MD PROCEDURE: XR CHEST 1V INDICATIONS: chest pain TECHNIQUE: One view of the chest was acquired. COMPARISON: [facility], CR, XR CHEST 2V, 11/02/2019, 4:37. FINDINGS: Surgical changes and devices: None. Lungs and pleura: Lungs are clear. No pleural effusions or pneumothorax. Mediastinum: Mediastinal contours appear normal. Heart size is normal. Bones and chest wall: No suspicious bony lesions. Overlying soft tissues appear unremarkable. IMPRESSION: No acute cardiopulmonary findings. Dictated by: Leanne Baird M.D. on 11/26/2019 at 15:03 Approved by: Leanne Baird M.D. on 11/26/2019 at 15:03 ECG Data Interpretation: Sinus rhythm. No ST elevation or depression noted p.r. interval 198. QRS 90. Viewed by Dr. Garay. [facility] Narrative Medical decision making narrative: The patient is a 71-year-old female who presents with multiple complaints of fried being and wooziness. I did get a head CT on her as she fell and hit her head a few days ago due to her advanced age. EKG is within normal limits. Chest x-ray is within normal limits. We did try a dose of hydroxyzine to help her anxiety and fretting,which was not effective. A single dose of p.o. Ativan was effective. I discussed at length that we cannot give her prescription of his the emergency department she needs to follow up with primary care provider. She states that she used to take Valium several times a day for anxiety, but no longer does. She thinks that she might need another prescription of that I referred her to her primary care provider. Patient had a negative troponin, and labs appear grossly normal for her. She is slightly hyponatremic at 129, but this is higher than her most recent drop of 127. She has been lower than this in past. Her renal function is within normal limits for her. Patient felt much improved after dose of Ativan and states she will follow up with primary care provider as scheduled on Thursday. Discussed come back to emergency department for any acute concerns. Patient has no questions or concerns upon discharge and states understanding return precautions as well as follow-up care. She plans on being discharged home with <Janae Garay MD - Last Filed: 11/27/19 08:49> Lab Data Labs: Lab Results 11/26/19 11/26/19 11/26/19 Range/Units 15:15 15:15 15:15 WBC 9.6 (4.5-11.0) X10^3/uL RBC 4.52 (4.0-5.2) X10^6/uL Hgb 14.4 (12.0-16.0) g/dL Hct 41.4 (36-46) % MCV 91.6 (80-100) fL MCH 31.9 (26-34) PG MCHC 34.9 (30-36) % RDW 13.2 (11.6-14.8) % Plt Count 383 (150-400) X10^3/uL Neut % (Auto) 73.8 (50-75) % Lymph % (Auto) 15.8 L (25-40) % Durham % (Auto) 8.0 (3-14) % Eos % (Auto) 1.4 L (2-4) % Baso % (Auto) 1.0 (0-2) % Neut # (Auto) 7100 H (7648-2082) /uL Lymph # (Auto) 1500 (1063-1739) /uL Durham # (Auto) 800 (0-900) /uL Eos # (Auto) 100 (0-450) /uL Baso # (Auto) 100 (0-100) /uL PT 10.4 (10.1-12.7) SECONDS INR 0.9 (0.9-1.3) APTT 30 (26.4-36.2) SECONDS Sodium 129 L (137-145) mmol/L Potassium 3.4 (3.4-5.1) mmol/L Chloride 88 L (98-107) mmol/L Carbon Dioxide 28 (22-32) mmol/L BUN 23 H (7-17) mg/dL Creatinine 1.40 H (0.52-1.04) mg/dL Estimated GFR 36.4 L (>60) mL/min BUN/Creatinine Ratio 16.4 (6-22) Glucose 167 H (80-110) mg/dL Calcium 10.0 (8.4-10.2) mg/dL Total Bilirubin 0.6 (0.2-1.3) mg/dL AST 45 H (14-36) IU/L ALT 26 (<35) IU/L Alkaline Phosphatase 178 H (38-126) U/L Total Creatine Kinase 70 (30-135) U/L CK-MB (CK-2) TNP CK-MB (CK-2) Rel Index TNP Troponin I < 0.012 (0.01-0.034) ng/mL Total Protein 8.3 H (6.3-8.2) g/dL Albumin 5.1 H (3.5-5.0) g/dL Globulin 3.2 (1.7-4.1) g/dL Albumin/Globulin Ratio 1.6 (1.0-2.8) U Opiates 300ng/mL cut (Negative) Ur Oxycodone Screen (Negative) Urine Methadone Screen (Negative) Ur Barbiturates Screen (Negative) U Tricyclic Antidepress (Negative) Ur Phencyclidine Scrn (Negative) Ur Amphetamines Screen (Negative) U Methamphetamines Scrn (Negative) Ur MDMA Scrn (Ecstasy) (Negative) U Benzodiazepines Scrn (Negative) Urine Cocaine Screen (Negative) U Marijuana (THC) Screen (Negative) Ethyl Alcohol ( - 10) mg/dL 11/26/19 11/26/19 Range/Units 15:25 18:20 WBC (4.5-11.0) X10^3/uL RBC (4.0-5.2) X10^6/uL Hgb (12.0-16.0) g/dL Hct (36-46) % MCV (80-100) fL MCH (26-34) PG MCHC (30-36) % RDW (11.6-14.8) % Plt Count (150-400) X10^3/uL Neut % (Auto) (50-75) % Lymph % (Auto) (25-40) % Durham % (Auto) (3-14) % Eos % (Auto) (2-4) % Baso % (Auto) (0-2) % Neut # (Auto) (8110-9133) /uL Lymph # (Auto) (5081-7227) /uL Durham # (Auto) (0-900) /uL Eos # (Auto) (0-450) /uL Baso # (Auto) (0-100) /uL PT (10.1-12.7) SECONDS INR (0.9-1.3) APTT (26.4-36.2) SECONDS Sodium (137-145) mmol/L Potassium (3.4-5.1) mmol/L Chloride (98-107) mmol/L Carbon Dioxide (22-32) mmol/L BUN (7-17) mg/dL Creatinine (0.52-1.04) mg/dL Estimated GFR (>60) mL/min BUN/Creatinine Ratio (6-22) Glucose (80-110) mg/dL Calcium (8.4-10.2) mg/dL Total Bilirubin (0.2-1.3) mg/dL AST (14-36) IU/L ALT (<35) IU/L Alkaline Phosphatase (38-126) U/L Total Creatine Kinase (30-135) U/L CK-MB (CK-2) CK-MB (CK-2) Rel Index Troponin I (0.01-0.034) ng/mL Total Protein (6.3-8.2) g/dL Albumin (3.5-5.0) g/dL Globulin (1.7-4.1) g/dL Albumin/Globulin Ratio (1.0-2.8) U Opiates 300ng/mL cut Negative (Negative) Ur Oxycodone Screen Negative (Negative) Urine Methadone Screen Negative (Negative) Ur Barbiturates Screen Negative (Negative) U Tricyclic Antidepress Positive H (Negative) Ur Phencyclidine Scrn Negative (Negative) Ur Amphetamines Screen Negative (Negative) U Methamphetamines Scrn Negative (Negative) Ur MDMA Scrn (Ecstasy) Negative (Negative) U Benzodiazepines Scrn Positive H (Negative) Urine Cocaine Screen Negative (Negative) U Marijuana (THC) Screen Negative (Negative) Ethyl Alcohol < 10 ( - 10) mg/dL Point of Care Testing Glucose POC 195 Urine Dip Bedside Urine Glucose Negative Bedside Urine Bilirubin - Negative Bedside Urine Ketone - Negative Urine Specific [place] 1.010 Bedside Urine Occult Blood - Negative Bedside Urine pH 7.0 Bedside Urine Protein - Negative Bedside Urine Urobilinogen - Negative Bedside Urine Nitrite - Negative Bedside Urine Leukocytes - Negative Esterase Discharge Plan Departure Patient Disposition: Home Clinical Impression: Anxiety Discharge Date/Time: 11/26/19 21:25 Instructions: DI for Anxiety -- Adult Activity Restrictions/Additional Instructions: Please follow-up with primary care provider in the next few days Your workup today came back very well Please rest and take it easy at home. Please come back to the emergency department for any acute concerns Prescriptions: No Action Levemir FlexTouch U-100 Insuln 100 unit/mL (3 mL) insulin pen 20 units subcut BID RF: 0 metoprolol succinate 50 mg Tablet Extended Release 24 Hr 100 mg PO DAILY RF: 0 lisinopril 20 mg Tablet 20 mg PO DAILY RF: 0 amitriptyline 10 mg Tablet 30 mg PO BEDTIME PRN (Reason: depression) RF: 0 diazepam 5 mg Tablet 5 mg PO TID RF: 0 Referrals: Jeevan Cummins MD [Primary Care Provider] -
== END 2019-11-26 21:25 | disposition home or self-care (01) ==
PROVIDERS: Emergency Medicine; Emergency Provider Nurse Practitioner Family; PCP Internal Medicine
DX: F41.9 Anxiety disorder, unspecified (principal); E11.8 Type 2 diabetes mellitus with unspecified complications; Z79.4 Long term (current) use of insulin; I10 Essential (primary) hypertension; S09.90XA Unspecified injury of head, initial encounter; W19.XXXA Unspecified fall, initial encounter; R07.9 Chest pain, unspecified
CPT/HCPCS: 36415; 70450; 71045; 80053; 80305; 80320; 81003; 82550; 82962; 84484; 85025; 85610; 85730; 93005; 93010; 96360; 96361; 99284

== ENCOUNTER → 2019-11-29 13:02 | Outpatient (CLI) | payer MEDICARE, OTHER, SELFPAY ==
[2018-02-11 05:38] VITALS: BMI 24.6
[2019-11-29 14:10] LABS: Alanine Aminotransferase 23 IU/L (<35); Albumin 4.5 g/dL (3.5-5.0); Albumin Globulin Ratio 1.7 (1.0-2.8); Alkaline Phosphatase 143 U/L (38-126); Aspartate Aminotransferase 33 IU/L (14-36); BUN Creatinine Ratio 32.5 (6-22); Bilirubin Total 0.4 mg/dL (0.2-1.3); Blood Urea Nitrogen 39 mg/dL (7-17); Calcium 10.2 mg/dL (8.4-10.2); Carbon Dioxide 25 mmol/L (22-32); Chloride 91 mmol/L (98-107); Estimated Glomerular Filt Rate 43.4 mL/min (>60); Globulin 2.6 g/dL (1.7-4.1); Glucose 338 mg/dL (80-110); HEMOLYSIS 25 (0-50); Potassium 4.4 mmol/L (3.4-5.1); Sodium 130 mmol/L (137-145); Total Protein 7.1 g/dL (6.3-8.2)
== END ==
PROVIDERS: PCP Internal Medicine; Referring Provider Internal Medicine; Visit Provider Internal Medicine
DX: E87.1 Hypo-osmolality and hyponatremia (principal)
CPT/HCPCS: 36415; 80053

== ENCOUNTER 2019-11-30 16:20 | Inpatient (IN) | payer MEDICARE, OTHER, SELFPAY ==
[2018-02-11 05:38] VITALS: BMI 24.6
[2019-11-30] VITALS (10 sets, daily range): BP systolic 93–197; BP diastolic 55–90; PULSE 81–101; RESP 17–42; TEMP 36.2–37.3; O2SAT 96–100; BMI 24.0
--- NOTE | 2019-11-30 16:20 | DI.CT.S_ITS ---
PROCEDURE: CT HEAD/BRAIN WO CON INDICATIONS: new onset seizures TECHNIQUE: Noncontrast 4.5 mm thick angled axial sections acquired from the foramen magnum to the vertex, with coronal and sagittal reformats. For radiation dose reduction, the following was used: automated exposure control, adjustment of mA and/or kV according to patient size. COMPARISON: [facility], CT, CT HEAD/BRAIN WO CON, 11/26/2019, 16:31. FINDINGS: Image quality: Excellent. CSF spaces: Basal cisterns are patent. No extra-axial fluid collections. The ventricles are symmetric in size and shape. Brain: No intracranial bleeds or masses. There is moderate cerebral volume loss for age, with resultant ventricular and sulcal prominence. There are severe periventricular and deep white matter chronic small vessel ischemic changes. 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 There is intracranial internal carotid artery and vertebral artery atherosclerosis. Skull and face: Calvarium and visualized facial bones appear intact, without suspicious lesions. Sinuses: Visualized sinuses and mastoids are clear. IMPRESSION: No acute intracranial disease process. Dictated by: Maria T Andre MD, PhD on 11/30/2019 at 15:31 Approved by: Maria T Andre MD, PhD on 11/30/2019 at 15:35
--- NOTE | 2019-11-30 16:21 | DI.RAD.S_ITS ---
PROCEDURE: XR CHEST 1V INDICATIONS: new onset seizure TECHNIQUE: One view of the chest was acquired. COMPARISON: [facility], CR, XR CHEST 1V, 11/26/2019, 15:35. FINDINGS: Surgical changes and devices: None. Lungs and pleura: Lungs are clear. No pleural effusions or pneumothorax. Mediastinum: Mediastinal contours appear normal. Heart size is enlarged. Bones and chest wall: No suspicious bony lesions. Overlying soft tissues appear unremarkable. IMPRESSION: No acute cardio pulmonary pathology. Dictated by: Jude Albarran M.D. on 11/30/2019 at 16:50 Approved by: Jude Albarran M.D. on 11/30/2019 at 16:56
--- NOTE | 2019-11-30 16:22 | ED.SEIZURE ---
HPI - Seizure General Chief Complaint: Seizure Stated Complaint: seizure Time Seen by Provider: 11/30/19 16:27 History of Present Illness HPI Narrative: 79-year-old woman with a history of diabetes, hypertension and significant anxiety prevents with new onset seizure x2 this afternoon. Was seen in the emergency department 4 days ago with anxiety and was at her primary care doctor's office this afternoon for follow-up from that. Once home her noted that he was talking with her and she slumped to the side in clearly had a grand mal type seizure. He called medics and noted that seizure resolved within approximately 1 minute with no additional intervention. She was initially postictal and then clearing and responding to medics. she then had a similar episode and was given Versed to control the seizure. Upon presentation to the emergency department she is maintaining an airway, not seizing, sedated and postictal. She has taken emergently to the CT scanner. Remainder of history is obtained from her . He notes that she typically drinks at least 3 shots of vodka and vodka tonics daily. Diazepam is on her med list however the says that she has not taken this for a number of months because she ?did not like the feeling?. Apparently her primary care physician noted benzo diazepam still present in her urine -review of records indicates that she was given a mg of Ativan at her November 25 ER visit. Related Data Home Medications Medication Instructions Recorded Confirmed amitriptyline 10 mg PO BEDTIME 02/11/18 11/30/19 insulin detemir U-100 [Levemir See Rx Instructions .ROUTE .COMPLEX 03/30/19 11/30/19 FlexTouch U-100 Insuln] aspirin 81 mg PO DAILY 11/30/19 11/30/19 atorvastatin 10 mg PO DAILY 11/30/19 11/30/19 chlorthalidone 12.5 mg PO DAILY 11/30/19 11/30/19 hydroxyzine HCl 25 mg PO BID-TID PRN 11/30/19 11/30/19 lisinopril 30 mg PO DAILY 11/30/19 11/30/19 propranolol 20 mg PO BID 11/30/19 11/30/19 sertraline 50 mg PO DAILY 11/30/19 11/30/19 Allergies Allergy/AdvReac Type Severity Reaction Status Date / Time oxycodone [From Percocet] AdvReac Nausea Verified 11/30/19 16:39 Patient History Social History household members: spouse lives independently: Yes Smoking Status: Former smoker alcohol intake: current Exam Narrative Exam Narrative: General: At least 2 hours post seizure, still quite confused, can be redirected but mumbles and is difficult to understand, speech is fluent but words are somewhat garbled, has been notes that she ?is occasionally like this? HEENT: Pupils are midposition and reactive, extraocular eye movement is symmetrical inappropriate, Neck: Supple, no lymphadenopathy, no jugular venous distension Chest: Completely clear, no wheeze no rales full and symmetrical air movement Cardiac: Regular rate and rhythm, 3/6 systolic murmur Abdomen: Soft, nontender, normal bowel tones. Multiple bruises over the lower abdomen from insulin injection Skin: Initially fairly cool distal extremities, all 4, warming nicely, no rashes Neurologic: Globally confused, picking at bed clothing, exceptionally anxious, difficult to redirect, non localizing exam Extremities: Fingers and toes initially quite dusky consistent with a Raynaud's type phenomenon, no significant trauma appreciated Psych: Agitated, possibly reacting to internal stimuli, can redirect, neurologically nonfocal, she is not hyper-reflexic Initial Vital Signs Initial Vital Signs: Vital Signs Temperature 97.1 F L 11/30/19 16:30 Pulse Rate 84 11/30/19 16:30 Respiratory Rate 17 11/30/19 16:30 Blood Pressure 93/55 L 11/30/19 16:30 Pulse Oximetry 97 11/30/19 16:30 Course Orders Ordered: ED Orders 11/30/19 16:20 CT head/brain wo con Stat 11/30/19 16:21 XR chest 1V Stat EKG-12 Lead Stat 11/30/19 16:37 Complete Blood Count AUTO DIFF Stat Comprehensive Metabolic Panel Stat Troponin I Stat 11/30/19 16:53 Blood Culture Stat 11/30/19 17:10 Urinalysis and Microscopic Stat Urine Drug Screen, Rapid Stat Sodium Chloride (Normal Saline 0.9%) 1,000 mls @ 150 mls/hr IV CONT TIGIST Last Admin: 11/30/19 16:55 Dose: 150 mls/hr Documented by: [email or web address] Vital Signs Vital signs: Vital Signs - 8 hr 11/30/19 16:30 11/30/19 17:16 Temperature 97.1 F L Pulse Rate 84 95 H Respiratory Rate 17 20 Blood Pressure 93/55 L Blood Pressure [Left Arm] 197/90 H Pulse Oximetry 97 96 MDM - Seizure Medical Records Attestation: I reviewed the patient's medical records. Lab Data Lab results narrative: Hyponatremia corrects given the hyperglycemia Renal insufficiency is stable Acute anemia is suspect, this is being redrawn Slightly elevated troponin may be related to the recent seizure Patient states she has not taken diazepam for an extended long time, positive urine tox today is likely from the Versed given for seizures Result diagrams: 11/30/19 16:37 11/30/19 16:37 Labs: Lab Results 11/30/19 11/30/19 11/30/19 Range/Units 16:37 16:37 17:10 WBC 13.8 H (4.5-11.0) X10^3/uL RBC 2.56 L (4.0-5.2) X10^6/uL Hgb 8.0 L (12.0-16.0) g/dL Hct 23.9 L (36-46) % MCV 93.2 (80-100) fL MCH 31.3 (26-34) PG MCHC 33.6 (30-36) % RDW 13.1 (11.6-14.8) % Plt Count 320 (150-400) X10^3/uL Neut % (Auto) 91.2 H (50-75) % Lymph % (Auto) 5.1 L (25-40) % [place] % (Auto) 3.3 (3-14) % Eos % (Auto) 0.1 L (2-4) % Baso % (Auto) 0.3 (0-2) % Neut # (Auto) 29163 H (6814-3087) /uL Lymph # (Auto) 700 L (8543-8828) /uL [place] # (Auto) 500 (0-900) /uL Eos # (Auto) 0 (0-450) /uL Baso # (Auto) 0 (0-100) /uL Sodium 131 L (137-145) mmol/L Potassium 4.1 (3.4-5.1) mmol/L Chloride 94 L (98-107) mmol/L Carbon Dioxide 12 L (22-32) mmol/L BUN 59 H (7-17) mg/dL Creatinine 1.46 H (0.52-1.04) mg/dL Estimated GFR 34.6 L (>60) mL/min BUN/Creatinine Ratio 40.4 H (6-22) Glucose 427 H (80-110) mg/dL Calcium 8.9 (8.4-10.2) mg/dL Total Bilirubin 0.2 (0.2-1.3) mg/dL AST 31 (14-36) IU/L ALT 29 (<35) IU/L Alkaline Phosphatase 81 D (38-126) U/L Troponin I 0.039 H (0.01-0.034) ng/mL Total Protein 6.1 L (6.3-8.2) g/dL Albumin 3.7 (3.5-5.0) g/dL Globulin 2.4 (1.7-4.1) g/dL Albumin/Globulin Ratio 1.5 (1.0-2.8) Urine Color Yellow Urine Appearance Clear Urine pH 5.5 (4.5-8.0) Ur Specific [place] 1.010 (1.000-1.035) Urine Protein Negative (Negative) Urine Glucose (UA) 1+ H (Negative) g/dL Urine Ketones Negative (NEGATIVE) Urine Occult Blood Negative (Negative) Urine Nitrate Negative (Negative) Urine Bilirubin Negative (NEGATIVE) Urine Urobilinogen 0.2 (0.2) E.U./dL Ur Leukocyte Esterase Negative (NEGATIVE) Urine RBC None seen (0-5/HPF) Urine WBC None seen (0-5/HPF) Urine Bacteria None seen (None) Ur Culture Indicated? Cult not indicated U Opiates 300ng/mL cut (Negative) Ur Oxycodone Screen (Negative) Urine Methadone Screen (Negative) Ur Barbiturates Screen (Negative) U Tricyclic Antidepress (Negative) Ur Phencyclidine Scrn (Negative) Ur Amphetamines Screen (Negative) U Methamphetamines Scrn (Negative) Ur MDMA Scrn (Ecstasy) (Negative) U Benzodiazepines Scrn (Negative) Urine Cocaine Screen (Negative) U Marijuana (THC) Screen (Negative) 11/30/19 Range/Units 17:10 WBC (4.5-11.0) X10^3/uL RBC (4.0-5.2) X10^6/uL Hgb (12.0-16.0) g/dL Hct (36-46) % MCV (80-100) fL MCH (26-34) PG MCHC (30-36) % RDW (11.6-14.8) % Plt Count (150-400) X10^3/uL Neut % (Auto) (50-75) % Lymph % (Auto) (25-40) % [place] % (Auto) (3-14) % Eos % (Auto) (2-4) % Baso % (Auto) (0-2) % Neut # (Auto) (7917-9055) /uL Lymph # (Auto) (0148-0047) /uL [place] # (Auto) (0-900) /uL Eos # (Auto) (0-450) /uL Baso # (Auto) (0-100) /uL Sodium (137-145) mmol/L Potassium (3.4-5.1) mmol/L Chloride (98-107) mmol/L Carbon Dioxide (22-32) mmol/L BUN (7-17) mg/dL Creatinine (0.52-1.04) mg/dL Estimated GFR (>60) mL/min BUN/Creatinine Ratio (6-22) Glucose (80-110) mg/dL Calcium (8.4-10.2) mg/dL Total Bilirubin (0.2-1.3) mg/dL AST (14-36) IU/L ALT (<35) IU/L Alkaline Phosphatase (38-126) U/L Troponin I (0.01-0.034) ng/mL Total Protein (6.3-8.2) g/dL Albumin (3.5-5.0) g/dL Globulin (1.7-4.1) g/dL Albumin/Globulin Ratio (1.0-2.8) Urine Color Urine Appearance Urine pH (4.5-8.0) Ur Specific [place] (1.000-1.035) Urine Protein (Negative) Urine Glucose (UA) (Negative) g/dL Urine Ketones (NEGATIVE) Urine Occult Blood (Negative) Urine Nitrate (Negative) Urine Bilirubin (NEGATIVE) Urine Urobilinogen (0.2) E.U./dL Ur Leukocyte Esterase (NEGATIVE) Urine RBC (0-5/HPF) Urine WBC (0-5/HPF) Urine Bacteria (None) Ur Culture Indicated? U Opiates 300ng/mL cut Negative (Negative) Ur Oxycodone Screen Negative (Negative) Urine Methadone Screen Negative (Negative) Ur Barbiturates Screen Negative (Negative) U Tricyclic Antidepress Positive H (Negative) Ur Phencyclidine Scrn Negative (Negative) Ur Amphetamines Screen Negative (Negative) U Methamphetamines Scrn Negative (Negative) Ur MDMA Scrn (Ecstasy) Negative (Negative) U Benzodiazepines Scrn Positive H (Negative) Urine Cocaine Screen Negative (Negative) U Marijuana (THC) Screen Negative (Negative) Imaging Data Chest x-ray: Radiologist's Impression: Dr. Albarran, no acute cardiopulmonary disease CT scan - head: Radiologist's Impression: Dr. Andre, no acute intracranial process MDM Narrative Medical decision making narrative: 79-year-old woman with 2 seizures earlier this afternoon. Head CT is unremarkable, no bleed and no structural abnormalities. Labs do not suggest acute systemic infectious etiology. No headache, fever and no meningismus signs to suggest an infectious meningitis. Urine tox shows only benzos (presumably from Versed) and tricyclics(she takes amitriptyline). Her notes that she does drink 3 drinks a day and today she only had 1. Denies chronic benzodiazepine use, states she has been taking her medications, has been using her insulin appropriately. Presentation at this is most consistent with metabolic encephalopathy or adverse medication side effect or withdrawal. Will recommend admission over the course of the evening to see if she clears after the seizures and the Versed given earlier to help direct additional workup. Case is reviewed with Dr. Gardner, and patient will be admitted, observation status, for further observation and definitive diagnosis Discharge Plan Departure Patient Disposition: Admitted as Observation Clinical Impression: New onset seizure Referrals: Jeevan Cummins MD [Primary Care Provider] -
[2019-11-30] MEDS: SODIUM CHLORIDE 0.9% 1,000 ML 150 ML IV (16:55)
[2019-11-30 17:12] LABS: Add Manual Diff / Slide Review NO
[2019-11-30 17:15] LABS: Bacteria Urine None Seen; RBC Urine None Seen (0-5/HPF); WBC Urine None Seen (0-5/HPF)
--- NOTE | 2019-11-30 17:15 | PC.NURSE ---
1710- airway removed, patient awake.
[2019-11-30 17:17] LABS: Appearance Urine UA CLEAR; Bilirubin Urine UA NEGATIVE (NEGATIVE); Color Urine UA YELLOW; Glucose Urine UA 1+ g/dL (Negative); Ketones Urine UA NEGATIVE (NEGATIVE); Leukocyte Esterase Urine UA NEGATIVE (NEGATIVE); Nitrite Urine UA NEGATIVE (Negative); Occult Blood Urine UA NEGATIVE (Negative); Protein Urine UA NEGATIVE (Negative); Urobilinogen Urine UA 0.2 E.U./dL (0.2)
[2019-11-30 17:18] LABS: Albumin 3.7 g/dL (3.5-5.0); Albumin Globulin Ratio 1.5 (1.0-2.8); Alkaline Phosphatase 81 U/L (38-126); BUN Creatinine Ratio 40.4 (6-22); Bilirubin Total 0.2 mg/dL (0.2-1.3); Blood Urea Nitrogen 59 mg/dL (7-17); Calcium 8.9 mg/dL (8.4-10.2); Carbon Dioxide 12 mmol/L (22-32); Chloride 94 mmol/L (98-107); Estimated Glomerular Filt Rate 34.6 mL/min (>60); Globulin 2.4 g/dL (1.7-4.1); Glucose 427 mg/dL (80-110); HEMOLYSIS < 15 (0-50); Potassium 4.1 mmol/L (3.4-5.1); Sodium 131 mmol/L (137-145); Total Protein 6.1 g/dL (6.3-8.2)
[2019-11-30 17:24] LABS: Ur Creatinine Normal (Normal); Ur Specific Gravity Normal (Normal); Urine pH Normal (Normal)
[2019-11-30 17:25] LABS: UR Morphine/Opiate cutoff 300 Negative (Negative); Urine Amphetamines Negative (Negative); Urine Barbiturates Negative (Negative); Urine Benzodiazepines Positive (Negative); Urine Cocaine Negative (Negative); Urine MDMA Negative (Negative); Urine Methadone Negative (Negative); Urine Methamphetamines Negative (Negative); Urine Oxycodone Negative (Negative); Urine Phencyclidine Negative (Negative); Urine Tetrahydrocannabinol Negative (Negative); Urine Tricyclic Antidepressant Positive (Negative)
[2019-11-30 17:29] LABS: Troponin I 0.039 ng/mL (0.01-0.034)
[2019-11-30 17:31] LABS: Alanine Aminotransferase 29 IU/L (<35); Aspartate Aminotransferase 31 IU/L (14-36)
[2019-11-30 17:35] LABS: Culture Indicated Urine Cult Not Indicated; pH Urine UA 5.5 (4.5-8.0)
[2019-11-30 17:42] LABS: Basophils Absolute Auto 0 /uL (0-100); Basophils Percent Auto 0.3 % (0-2); Eosinophils Absolute Auto 0 /uL (0-450); Eosinophils Percent Auto 0.1 % (2-4); Lymphocytes Absolute Auto 700 /uL (1100-4500); Lymphocytes Percent Auto 5.1 % (25-40); Mean Corpuscular HGB Conc 33.6 % (30-36); Mean Corpuscular Hemoglobin 31.3 PG (26-34); Mean Corpuscular Volume 93.2 fL (80-100); Monocytes Absolute Auto 500 /uL (0-900); Monocytes Percent Auto 3.3 % (3-14); Neutrophils Absolute Auto 12600 /uL (1500-7000); Neutrophils Percent Auto 91.2 % (50-75); Platelet Count 320 X10^3/uL (150-400); Red Blood Cell Count 2.56 X10^6/uL (4.0-5.2); Red Cell Distribution Width 13.1 % (11.6-14.8); White Blood Cell Count 13.8 X10^3/uL (4.5-11.0)
[2019-11-30 17:44] LABS: Hematocrit 23.9 % (36-46)
--- NOTE | 2019-11-30 20:27 | DI.MRI.S_ITS ---
PROCEDURE: MR HEAD/BRAIN WO CON INDICATIONS: New onset seizure, prior cerebral infarct TECHNIQUE: Non-contrast axial T1 spin echo, axial T2 fast spin echo, sagittal and axial FLAIR, coronal T2 fast spin echo, axial gradient echo, axial diffusion and ADC through the brain. COMPARISON: [facility], MR, MR ANGIO HEAD WO CON, 12/01/2019, 17:07. [facility], CT, CT HEAD/BRAIN WO CON, 11/30/2019, 16:18. FINDINGS: Image quality: Prominent motion is present on multiple sequences, limiting areas of fine detail evaluation. CSF spaces: Ventricles appear symmetric in size and shape. Basal cisterns are patent. No extra-axial fluid collections. Brain: No intracranial bleeds or mass effects. There is cerebral volume loss for age. There are periventricular and deep white matter chronic small vessel ischemic changes. Brainstem appears normal. Diffusion-weighted images demonstrate hyperintensity within the superior right frontal lobe.. No chronic ischemic insults. Normal intravascular flow voids are present. Skull and face: Calvarial bone marrow is normal in signal. Orbits are normal. Sinuses: Sinuses demonstrate minimal pansinus mucosal thickening. IMPRESSION: 1. Punctate areas of restricted diffusion within the superior right frontal lobe consistent with acute/subacute ischemia. 2. Significant atrophy and chronic microvascular ischemic changes. Dictated by: Luiza Almodovar M.D. on 12/01/2019 at 18:17 Approved by: Luiza Almodovar M.D. on 12/01/2019 at 18:21
--- NOTE | 2019-11-30 21:09 | P.HP_ITS ---
History of Present Illness History of Present Illness Date Patient Seen: 11/30/19 Time Patient Seen: 21:09 Chief complaint: seizure Narrative: Ms. Amanda Farah is a 79-year-old female with a history significant for diabetes type 2 with hyperglycemia hypertension, generalized anxiety disorder with panic attacks, IBS melanoma, and neuropathy who was bro ught into the ER by EMS after having seizure home and a 2nd 1 paramedics. The patient had a witnessed seizure approximately 1 minute duration with tonic clonic activity witnessed by the patient's at home. He summoned EMS and the patient regained consciousness and was responsive however remain postictal at which time she had a 2nd tonic-clonic seizure. Paramedics administered Versed with cessation of seizure activity. Patient does have a history alcoholism taking 3 shots of vodka daily and has had 1 shot today. Before that she would drink wine daily. The patient does report falling frequently with her last fall this morning. She reports that she does frequently strike her head. She denies neck or back pain. She typically uses a walker at to ambulate. The patient is a poor historian and her is at bedside providing additional information. The patient has had no recent complaints of cough or cold fevers or chills. She denies complaints of chest pain or palpitations and has had complaints of shortness of breath cough or wheezing. She does complain of abdominal bloating stating she needs to move her bowels but has been unable to, her indicates that she passed small bowel movement this morning. Her bowel movements are dark in color however she states she takes Pepto-Bismol regularly. She additionally states that she feels the need to urinate but also states she is unable to. Patient has longstanding history of anxiety disorder was seen on 11/26/2019 in the ER for anxiety a which time she received lorazepam and discharged home. Upon arrival to the ER the patient has a temperature of 97.1?, heart rate of 84, blood pressure 1 7/90, respirations 20 oxygen saturation of 96. A CT of the which is obtained which finds no acute processes, no bleed or mass, moderate volume loss for age, severe periventricular and deep white matter chronic small- vessel changes, small chronic bilateral Frank lacunar infarcts that are stable. On laboratory testing patient is a elevated white count 13.8 with increased neutrophils at 91.2%, hemoglobin 8.0 (14.4 on 11/26/2019), hematocrit of 23.9 (41.4 on 11/26/2019) and platelets of 320. On chemistries patient has hyponatremia at 131, potassium is 4.1. She has a BUN of 59 with a creatinine 1.46 with an EGFR of 34.6. Her nonfasting glucose is 427, it is unknown patient received IV dextrose from EMS. Liver functions within normal range with a bilirubin of 0.2, AST of 31, ALT 29 and alkaline phosphatase of 81. Troponin is mildly elevated at 0.039 in the setting elevated creatinine clearance. A urine tox is obtained which is positive for try sick let us with the patient on amitriptyline and benzodiazepines with the patient having received Versed in the field. Urinalysis is negative for infection and reveals 1+ glucosuria. Patient is admitted to the hospitalist service for further evaluation of new onset seizures and acute anemia. Patient History Medical History (Updated 11/30/19 @ 22:25 by HAYLEE Israel) Alcohol abuse (Acute) Anxiety (Acute) Diabetes type 2, controlled (Acute) Hypertension (Acute) Neuropathy (Acute) Panic attack (Inactive) Surgical History (Updated 11/30/19 @ 22:25 by HAYLEE Israel) History of (Acute) History of ectopic (Acute) Family & Social History Family History (Updated 11/30/19 @ 22:26 by HAYLEE Israel) Father No problems noted. Mother Dementia Social History: household members spouse Prior Living Arrangements House lives independently Yes Safety & Behavioral: Feels Safe in Current Yes Environment Been Physically Hurt or No Threatened By a Person Suicidal Ideation Description None Suicide Plan Description No Plan Tobacco & Substance use: Smoking Status Former smoker alcohol intake current alcohol intake frequency 3 or more drinks per day Substance Use Type does not use Comment: The patient lives in a two-story single family home with her to whom she has been for 39 years. Patient has been previously . Smoking: Patient quit smoking approximately 2 years ago before which we smoking less than 1 pack per day. Alcohol: Patient presently consumes approximately 3 shots vodka per day for the last month before which she was drinking wine daily. Substance use: Patient does not use recreational pharmaceuticals herbal or cannabis products. Advanced directives: Family will bring in advanced directive from home, this time patient states her desire to be FULL CODE. She designates her to be her surrogate decision maker. Meds Home Medications and Allergies Home Medications Medication Instructions Recorded Confirmed Type amitriptyline 10 mg PO BEDTIME 02/11/18 11/30/19 History insulin detemir U-100 [Levemir See Rx Instructions .ROUTE .COMPLEX 03/30/19 11/30/19 History FlexTouch U-100 Insuln] aspirin 81 mg PO DAILY 11/30/19 11/30/19 History atorvastatin 10 mg PO DAILY 11/30/19 11/30/19 History chlorthalidone 12.5 mg PO DAILY 11/30/19 11/30/19 History hydroxyzine HCl 25 mg PO BID-TID PRN 11/30/19 11/30/19 History lisinopril 30 mg PO DAILY 11/30/19 11/30/19 History propranolol 20 mg PO BID 11/30/19 11/30/19 History sertraline 50 mg PO DAILY 11/30/19 11/30/19 History Allergies Allergy/AdvReac Type Severity Reaction Status Date / Time oxycodone [From Percocet] AdvReac Nausea Verified 11/30/19 16:39 Review of Systems Review of Systems ROS: Yes All systems reviewed with the patient and are negative except as otherwise documented and unobtainable due to mental status Exam Vital Signs (past 8 hours): - 11/30/19 16:30 11/30/19 17:16 11/30/19 18:00 Temperature 97.1 F L Pulse Rate 84 95 H 95 H Respiratory Rate 17 20 22 Blood Pressure 93/55 L Blood Pressure [Left Arm] 197/90 H 163/75 H Pulse Oximetry 97 96 96 11/30/19 18:30 11/30/19 19:00 11/30/19 19:32 Temperature Pulse Rate 95 H 94 H 100 H Respiratory Rate 26 H 42 H 35 H Blood Pressure Blood Pressure [Left Arm] 171/79 H 181/79 H 153/68 H Pulse Oximetry 96 98 96 Oxygen Delivery Method Room Air Oxygen Flow Rate 2 Narrative Exam Narrative: GENERAL APPEARANCE: well developed, pale and somewhat gaunt appearing elderly woman in no acute distress. HEENT: Atraumatic, pupils are sluggish, PERRLA, no ptosis, conjunctiva clear sclera anicteric, EOMs intact without nystagmus, no sinus tenderness to percussion, no rhinorrhea, mucous membranes are moist and pale without lesions or exudate. NECK/THYROID: neck supple, no JVD, bilateral carotid bruit, no thyromegaly, trachea midline. LYMPH NODES: no cervical or supraclavicular lymphadenopathy. SKIN: Pale, warm and dry, no visible lesions, rashes, ulcerations or petechiae. HEART: regular rate and rhythm, S1-S2, 1/6 systolic murmur, no rubs or gallops, brisk capillary refill, 2+ dorsalis pedis pulses, no edema LUNGS: clear to auscultation bilaterally, no coarseness crackles or wheezing, no cough present CHEST: Tachypneic with symmetrical movement, no accessory muscle use, good tidal volume. ABDOMEN: Soft, mild distention, attempting to percussion, no abdominal tenderness, no guarding or peritoneal signs, no organomegaly, no flank or suprapubic tenderness, active bowel tones. EXTREMITIES: moves all extremities, strength is 5/5 and symmetrical, no deformities or joint effusions. NEUROLOGIC: AAO to person and place only, difficulty responding to questions occasional inappropriate responses to questions, word-finding difficulty, cranial nerves II-XII grossly intact, decrease a sensation bilateral feet and hands, discoordination with ataxia PSYCH: Fair eye contact, will inconsistently follow simple commands, difficulty concentrating, anxious Objective Labs Result Diagrams: 11/30/19 16:37 11/30/19 16:37 Labs: Laboratory Results - last 24 hr 11/30/19 11/30/19 11/30/19 16:37 16:37 17:10 WBC 13.8 H RBC 2.56 L Hgb 8.0 L Hct 23.9 L MCV 93.2 MCH 31.3 MCHC 33.6 RDW 13.1 Plt Count 320 Neut % (Auto) 91.2 H Lymph % (Auto) 5.1 L [place] % (Auto) 3.3 Eos % (Auto) 0.1 L Baso % (Auto) 0.3 Neut # (Auto) 23252 H Lymph # (Auto) 700 L [place] # (Auto) 500 Eos # (Auto) 0 Baso # (Auto) 0 Sodium 131 L Potassium 4.1 Chloride 94 L Carbon Dioxide 12 L BUN 59 H Creatinine 1.46 H Estimated GFR 34.6 L BUN/Creatinine Ratio 40.4 H Glucose 427 H Calcium 8.9 Total Bilirubin 0.2 AST 31 ALT 29 Alkaline Phosphatase 81 D Troponin I 0.039 H Total Protein 6.1 L Albumin 3.7 Globulin 2.4 Albumin/Globulin Ratio 1.5 Urine Color Yellow Urine Appearance Clear Urine pH 5.5 Ur Specific [place] 1.010 Urine Protein Negative Urine Glucose (UA) 1+ H Urine Ketones Negative Urine Occult Blood Negative Urine Nitrate Negative Urine Bilirubin Negative Urine Urobilinogen 0.2 Ur Leukocyte Esterase Negative Urine RBC None seen Urine WBC None seen Urine Bacteria None seen Ur Culture Indicated? Cult not indicated U Opiates 300ng/mL cut Ur Oxycodone Screen Urine Methadone Screen Ur Barbiturates Screen U Tricyclic Antidepress Ur Phencyclidine Scrn Ur Amphetamines Screen U Methamphetamines Scrn Ur MDMA Scrn (Ecstasy) U Benzodiazepines Scrn Urine Cocaine Screen U Marijuana (THC) Screen 11/30/19 17:10 WBC RBC Hgb Hct MCV MCH MCHC RDW Plt Count Neut % (Auto) Lymph % (Auto) [place] % (Auto) Eos % (Auto) Baso % (Auto) Neut # (Auto) Lymph # (Auto) [place] # (Auto) Eos # (Auto) Baso # (Auto) Sodium Potassium Chloride Carbon Dioxide BUN Creatinine Estimated GFR BUN/Creatinine Ratio Glucose Calcium Total Bilirubin AST ALT Alkaline Phosphatase Troponin I Total Protein Albumin Globulin Albumin/Globulin Ratio Urine Color Urine Appearance Urine pH Ur Specific [place] Urine Protein Urine Glucose (UA) Urine Ketones Urine Occult Blood Urine Nitrate Urine Bilirubin Urine Urobilinogen Ur Leukocyte Esterase Urine RBC Urine WBC Urine Bacteria Ur Culture Indicated? U Opiates 300ng/mL cut Negative Ur Oxycodone Screen Negative Urine Methadone Screen Negative Ur Barbiturates Screen Negative U Tricyclic Antidepress Positive H Ur Phencyclidine Scrn Negative Ur Amphetamines Screen Negative U Methamphetamines Scrn Negative Ur MDMA Scrn (Ecstasy) Negative U Benzodiazepines Scrn Positive H Urine Cocaine Screen Negative U Marijuana (THC) Screen Negative Assessment & Plan Assessment & Plan narrative: 1. New onset seizures, resolved upon arrival, active -The patient had 2 witnessed tonic-clonic seizures 1st by her the 2nd in the care of paramedics. -The patient received Versed in the field and is positive for benzodiazepines on the urine tox screen likely from this medication. -Patient is alcoholic consuming 3 vodka daily for the last month and before that wine. The patient has had only 1 drink today and consideration is given to alcohol withdrawal. For the patient's the patient is not previously exhibited withdrawal symptoms. -Patient is started on CIWA protocol with seizure precautions, lorazepam 2 mg IV as needed seizure and lorazepam p.o./IV per CIWV protocol. -Ordered an IV banana bag with thiamine and folate daily. -On head CT severe periventricular deep white matter chronic small-vessel changes noted as well as small chronic bilateral thalamic lacunar infarct. Consideration is given to stroke considering patient's continued level of neurological impairment not at baseline per the patient's . -patient score 6 on the NIH stroke scale. -Will obtain MRI stroke protocol. 2. Acute anemia, normochromic normocytic, present on admission, active. -Unknown etiology, patient denies hematemesis and hematochezia. She takes daily aspirin 81 mg and Pepto-Bismol frequently and reports his stools are always black. Last BM was this morning. -Admission labs finds a hemoglobin of 8.0 and hematocrit 23.9, H&H drawn on 11/26 2019, hemoglobin was 14.4 and hematocrit of 41.4. -Will guaiac stool stools x3. -Repeat H&H and obtain PT/INR, PTT at 11:00 p.m. tonight with routine CBC in the morning 3. Chronic kidney disease stage III, present on admission, active -Creatinine on admission is 1.46, and was found to be 1.2 yesterday, increase in creatinine likely related to seizures. -Will check creatinine kinase has component of cardiac panel. -Will avoid renal toxic agents and renal dose medications as indicated. -Ordered Normal saline 100 cc/hour. 4. Diabetes type 2, insulin-dependent with hyperglycemia, present on admission, active -Blood sugar on admission labs is 427, unknown if patient received dextrose from EMS. -Last hemoglobin A1c obtained on 10/25/2019 was 8.4. -Fingerstick blood sugars a.c. and HS with correctional insulin medium range. -Continue patient's home regimen of detemir insulin 34 units in the morning and 26 units at night. -will follow-up patient's fingerstick blood sugars and treat as indicated. 5. Elevated serum troponin, unclear significance, present on admission, active. -Troponin is found to be 0.039 on admission labs. -Troponin elevation may be related to cardiac stress associated with seizures or may be and elevation related to impaired clearance in CKD. -Will recheck troponin at 11:00 p.m. tonight and track and trend as indicated. 6. Hyponatremia, present on admission, active. -Patient has had hyponatremia since labs on 11/24 when sodium level was 127, sodium level today is improved but remains low at 131. -Patient is presently receiving normal saline 100 cc/hour. -Will recheck chemistries in the morning. 7. Generalized anxiety disorder with panic attacks, present on admission, active. -The patient's anxiety is exacerbated by current confusional state. -Patient with a long history of anxiety for which she takes hydroxyzine 25 mg 2- 3 times daily. -The patient is seen in the ER on 11/26/2019 for anxiety and received lorazepam. -Will continue patient's home regimen of sertraline 50 mg daily and propranolol 20 mg twice daily. 8. Alcohol abuse, present on admission, active. -New the patient nor her relate previous withdrawal symptoms or withdrawal seizures. -CIWA protocol with lorazepam as noted above. VTE prophylaxis: Bilateral compression hose, will hold off on chemical prophylaxis pending re-evaluation of H&H and evaluation of possible GI bleeding. IV fluid: Normal saline 100 cc/hour Diet: Clear liquids, constant carbohydrate. The patient is admitted to the hospital for new onset seizures would may be related to a neurological event and less likely related to alcohol withdrawal. Patient will be admitted as an inpatient with expected length of stay to be greater than 2 midnights. Scores NIHSS Level of Conciousness: Not alert, but arousable by minor stim to obey, answer or respond Ask month/age: Answers neither question correctly, aphasic, stuporous, coma Open/close eyes, close hand: Performs both tasks correctly Best gaze horizontal: Normal Visual gold: No visual loss Facial palsy: Normal symetrical movement Left arm drift: No drift for full 10 sec Right arm drift: No drift for full 10 sec Left leg drift: No drift for full 5 sec Right leg drift: No drift for full 5 sec Limb ataxia: Present in two limbs Sensory on face/arms/legs: Normal, no sensory loss Best language: Mild to moderate, slurs some words Dysarthria: Normal Extinction or inattention: No abnormality Total NIH Stroke scale score: 6 Quality VTE Deep Vein Thrombosis/Pulmonary Embolism Present on Admission: No
[2019-11-30] MEDS: MAGNESIUM SULFATE 2 GM, FOLIC ACID 1 MG, THIAMINE 100 MG, MULTIVITAMIN 10 ML in SODIUM ... IV (21:49)
[2019-11-30] MEDS: THIAMINE 100 MG TABLET PO (22:08)
[2019-11-30] MEDS: PROPRANOLOL 10 MG TABLET 20 MG PO (22:11)
[2019-11-30] MEDS: INSULIN ASPART 100 UNIT/ML INSULN PEN SUBCUT (22:12)
[2019-11-30] MEDS: INSULIN DETEMIR 100 UNIT/ML INSULN.PEN 26 UNIT SUBCUT (22:12)
[2019-11-30 23:12] LABS: Add Manual Diff / Slide Review NO; Basophils Absolute Auto 100 /uL (0-100); Basophils Percent Auto 0.6 % (0-2); Eosinophils Absolute Auto 0 /uL (0-450); Hematocrit 23.5 % (36-46); Hemoglobin 8.1 g/dL (12.0-16.0); Lymphocytes Absolute Auto 2100 /uL (1100-4500); Lymphocytes Percent Auto 14.3 % (25-40); Mean Corpuscular HGB Conc 34.6 % (30-36); Mean Corpuscular Hemoglobin 31.6 PG (26-34); Mean Corpuscular Volume 91.3 fL (80-100); Monocytes Absolute Auto 900 /uL (0-900); Monocytes Percent Auto 6.1 % (3-14); Neutrophils Absolute Auto 11400 /uL (1500-7000); Platelet Count 325 X10^3/uL (150-400); Red Blood Cell Count 2.58 X10^6/uL (4.0-5.2); Red Cell Distribution Width 13.3 % (11.6-14.8); White Blood Cell Count 14.4 X10^3/uL (4.5-11.0)
[2019-11-30 23:18] LABS: Prothrombin Time 11.3 SECONDS (10.1-12.7)
[2019-11-30 23:21] LABS: PTT Partial Thromboplastin Tim 25 SECONDS (26.4-36.2)
[2019-11-30 23:23] LABS: Creatine Kinase 150 U/L (30-135)
[2019-11-30 23:25] LABS: BUN Creatinine Ratio 43.9 (6-22); Blood Urea Nitrogen 54 mg/dL (7-17); Calcium 9.4 mg/dL (8.4-10.2); Carbon Dioxide 25 mmol/L (22-32); Chloride 98 mmol/L (98-107); Estimated Glomerular Filt Rate 42.2 mL/min (>60); Glucose 316 mg/dL (80-110); HEMOLYSIS < 15 (0-50); Magnesium 1.9 mg/dL (1.6-2.3); Potassium 3.3 mmol/L (3.4-5.1); Sodium 133 mmol/L (137-145)
[2019-11-30 23:35] LABS: Troponin I 0.049 ng/mL (0.01-0.034)
[2019-11-30 23:39] LABS: CKMB % Relative Index 3.8 % (1.5-5.0); Creatine Kinase MB 5.65 ng/mL (<2.37)
[2019-12-01] VITALS (12 sets, daily range): BP systolic 101–165; BP diastolic 40–78; PULSE 62–89; RESP 12–20; TEMP 36.3–36.9; O2SAT 94–100
--- NOTE | 2019-12-01 | DI.MRI.S_ITS ---
PROCEDURE: MR ANGIO HEAD WO CON INDICATIONS: SEIZURE TECHNIQUE: Noncontrast axial 3-D [id number] MR angiogram, with 3-dimensional maximum intensity projection (MIP) reformats of the internal carotid arteries and posterior circulation then performed. COMPARISON: [facility], MR, MR HEAD/BRAIN WO CON, 12/01/2019, 17:07. [facility], CT, CT HEAD/BRAIN WO CON, 11/30/2019, 16:18. FINDINGS: Image quality: Excellent. Anterior circulation: There is high-grade stenosis of the supraclinoid portion of the right internal carotid artery. The flow within the paired anterior cerebral arteries is normal and symmetric. The flow within the middle cerebral arteries is normal and symmetric. The anterior communicating artery is seen. No stenoses, occlusions, or aneurysms. Posterior circulation: Visualized portions of the vertebral arteries demonstrate normal caliber, and join to form a normal appearing basilar artery. The flow within the posterior cerebral arteries is normal and symmetric. No stenoses, occlusions, or aneurysms. IMPRESSION: 1. 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 Dictated by: Luiza Almodovar M.D. on 12/01/2019 at 18:32 Approved by: Luiza Almodovar M.D. on 12/01/2019 at 18:35
--- NOTE | 2019-12-01 00:11 | PC.NURSE ---
Admit/Evening Shift Note- Patient arrived to room via stretcher from ER at 2009. Slider board used to transfer to bed. Admit questions completed with patient and Suraj, home medications reviewed, and physical assessment done. Patient alert and oriented with confusion/forgetfullness and difficulty finding words noted. Patient speech is slow and slurred. Patient visually shakey and reports anxiety issues. Oriented patient to bed and bed controls, and call cook/tv remote. Not not able to retain any of that teaching at this time. Safety measures in place. Bed alarm activated. [facility]. Will continue to monitor.
[2019-12-01] MEDS: MELATONIN 3 MG TABLET 6 MG PO (00:26)
[2019-12-01] MEDS: LORazepam 0.5 MG TABLET PO ×3 (00:26→15:19)
[2019-12-01] MEDS: POTASSIUM CHLORIDE 40 MEQ in SODIUM CHLORIDE 0.9% 500 ML 130 ML IV (01:56)
--- NOTE | 2019-12-01 02:35 | PC.NURSE ---
Addendum entered by Dorothea Elise R.N. 12/01/19 07:02: Straight cath @ 0650 for 1025ml output. Addendum entered by Dorothea Elise R.N. 12/01/19 06:43: Bladder scan estimate of 919ml, [employer] notified, will do in and out cath. Original Note: Patient oriented to self, able to state month after delayed thought process, difficulty finding words to describe situation, knows shes in the hospital but not where and not exactly why. Pain disorienting patient, distracted by full body pain when answering questions. Reports that it is 2006 or 2006. Diabetic neuropathy from feet to knees. Reports dizziness in the AM, cannot verbalize why. Multiple fall hx recently, states recent fall hit her head. Full scalp assessment shows not bruises, lacerations, or abrasions. Does have abrasions to left elbow and left ruano, bruising to abdomen from insulin injections. Patient has episodes of tachypnea, reports of anxiety and pain contributing, can slow breathing down when instructed. Reports SOB when I shake. Can appear tremulous both with and without tachypnea. Denies hx of incontinence, until recently could get to the bathroom to urinate per her report. Patient denies nausea, has positive bowel tones and is passing flatus. Denies chest pain, is hypertensive. CIWA of 5, seizure pads in place, bed alarm on and functioning. Due to high anxiety and risk for falls due to confusion and recent mult. falls has sitter.
[2019-12-01] MEDS: ACETAMINOPHEN 325 MG TABLET 650 MG PO (04:10)
[2019-12-01 05:52] LABS: Add Manual Diff / Slide Review NO; Basophils Absolute Auto 100 /uL (0-100); Basophils Percent Auto 0.7 % (0-2); Eosinophils Absolute Auto 0 /uL (0-450); Hemoglobin 7.6 g/dL (12.0-16.0); Lymphocytes Absolute Auto 1400 /uL (1100-4500); Lymphocytes Percent Auto 11.5 % (25-40); Mean Corpuscular HGB Conc 34.5 % (30-36); Mean Corpuscular Hemoglobin 31.7 PG (26-34); Mean Corpuscular Volume 91.9 fL (80-100); Monocytes Absolute Auto 700 /uL (0-900); Monocytes Percent Auto 5.9 % (3-14); Neutrophils Absolute Auto 9800 /uL (1500-7000); Neutrophils Percent Auto 81.9 % (50-75); Platelet Count 292 X10^3/uL (150-400); Red Cell Distribution Width 13.2 % (11.6-14.8)
[2019-12-01 06:12] LABS: BUN Creatinine Ratio 41.4 (6-22); Blood Urea Nitrogen 48 mg/dL (7-17); Calcium 9.1 mg/dL (8.4-10.2); Carbon Dioxide 23 mmol/L (22-32); Chloride 104 mmol/L (98-107); Estimated Glomerular Filt Rate 45.2 mL/min (>60); Glucose 204 mg/dL (80-110); HEMOLYSIS < 15 (0-50); Potassium 3.7 mmol/L (3.4-5.1); Sodium 136 mmol/L (137-145)
[2019-12-01 06:23] LABS: Troponin I 0.051 ng/mL (0.01-0.034)
[2019-12-01 06:41] LABS: Thyroid Stimulating Hormone 4.47 uIU/mL (0.47-4.68)
[2019-12-01] MEDS: INSULIN ASPART 100 UNIT/ML INSULN PEN SUBCUT ×2 (08:48→13:25)
[2019-12-01] MEDS: MULTIVITAMIN 1 TABLET 1 TAB PO (08:49)
[2019-12-01] MEDS: FOLIC ACID 1 MG TABLET PO (08:49)
[2019-12-01] MEDS: ASPIRIN EC 81 MG TABLET PO (08:49)
[2019-12-01] MEDS: INSULIN DETEMIR 100 UNIT/ML INSULN.PEN 34 UNIT SUBCUT (08:50)
[2019-12-01] MEDS: lisinopriL 10 MG TABLET 30 MG PO (08:50)
[2019-12-01] MEDS: PROPRANOLOL 10 MG TABLET 20 MG PO ×2 (08:50→22:49)
[2019-12-01] MEDS: THIAMINE 100 MG TABLET PO (08:50)
[2019-12-01] MEDS: SODIUM CHLORIDE 0.9% 1,000 ML 100 ML IV (11:00)
--- NOTE | 2019-12-01 11:28 | CM.DANOTE ---
DCP assessment: EMR Reviewed: Patient is a 79 yr old female who was admitted for Seizures. Patients PCP is Dr. Cummins. CM/Rn met with patient at the bedside and explained role. Patient was alert and oriented x3 a time of CM/RN visit but struggled with speech and needed more time to communicate thoughts. Patient is currently on CIWA protocol. patient states she is Independent at baseline with all ADL's but her drives. Patient is pending Dietitian evaluation. patient currently lives in a 2 story home with her and has been having more frequent falls. Cm/RN talked about SNF VS home with HH and patient stated she does not want to go to a SNF but is open to HH services if it is believed that she is in need of those services. Patient did say she does not want to go to SNF but that if the provider and PT believe she needs SNF she will be open to that option at that time. CM/Rn will talk with Dr. Chavez about putting in PT orders. I: Medicare and Synferen[employer] Plan: D/C home vs home with HH is preferred but patient is open to D/C to SNF if it is determined she needs it. CM will follow and determine if patient is IP vs OBS that will help plan D/C for this patient. Ely Fritz RN Discharge Planning/Care Management CM Discharge Assessment Start: 12/01/19 11:17 Freq: Status: Active Protocol: Document 12/01/19 11:17 HS (Rec: 12/01/19 11:28 HS [id number]) Discharge Planning Assessment Assigned Laundry Presser Ely Fritz RN DPOA/Assigned Designee Name Suraj Farah (spouse) Contact Information [phone] Advance Directives? Yes Advance Directives on File Yes History Provided By Patient Has Patient been admitted in last 30 No days? Prior Living Arrangements House Household Members spouse Type of transporation used prior to Relies on Others admit Independent with ADL's Yes Is patient alert and oriented? Yes Caregiver for Another No Patient/Family Preference Home with Home Health Discharge Plan Home Additional Comment patient may need SNF or HH - patient is open to HH but really doesnt want SNF but will if absolutly nessesary will consider. Whiteboard Updated in Patient Room with Yes name and ext. # of Laundry Presser Review Status In Process Next Review Type Continued Stay Review
[2019-12-01 12:27] LABS: Hemoglobin 7.1 g/dL (12.0-16.0)
[2019-12-01 12:50] LABS: Troponin I 0.034 ng/mL (0.01-0.034)
[2019-12-01 14:29] LABS: Reticulocyte Count, Percent 3.1 % (1.06-2.63)
--- NOTE | 2019-12-01 14:57 | P.PN_ITS ---
Subjective Subjective Date Patient Seen: 12/01/19 Time Patient Seen: 14:57 Interval history: Ms. Amanda Farah is a 79-year-old female with a history significant for diabetes type 2 with hyperglycemia hypertension, generalized anxiety disorder with panic attacks, melanoma, and neuropathy who was brought into the ER by EMS after having a seizure at home and another with EMS. Etiology was thought to be secondary to alcohol withdrawal, with further possibilities including benzodiazepine withdrawal, possible CVA, or primary seizure disorder. She is pending brain MRI at this time. She also has had a dropping hemoglobin of which the cause is unclear at this point. Patient will be started on pantoprazole IV b.i.d.. Most recent hemoglobin is down to 7.1, will also send a hemolytic workup given no clear source. Still pending stool guaiac at this point. Troponin did ultimately downtrend. Patient still continues to be confused compared to her baseline per her . Exam Vital Signs (past 8 hours): - 12/01/19 07:54 12/01/19 11:00 Temperature 97.8 F 97.4 F L Pulse Rate 81 69 Respiratory Rate 16 16 Blood Pressure 122/76 111/62 Pulse Oximetry 94 94 Oxygen Delivery Method Room Air Oxygen Flow Rate 0 Narrative Exam Narrative: GENERAL APPEARANCE: well developed, pale elderly female in no acute distress. HEENT: Atraumatic, pupils are sluggish, PERRLA, no ptosis, conjunctiva clear sclera anicteric, EOMs intact without nystagmus, no sinus tenderness to percussion, no rhinorrhea, mucous membranes are moist and pale without lesions or exudate. NECK/THYROID: neck supple, no JVD, bilateral carotid bruit, no thyromegaly, trachea midline. LYMPH NODES: no cervical or supraclavicular lymphadenopathy. SKIN: Pale, warm and dry, no visible lesions, rashes, ulcerations or petechiae. HEART: regular rate and rhythm, S1-S2, 1/6 systolic murmur, no rubs or gallops, brisk capillary refill, 2+ dorsalis pedis pulses, no edema LUNGS: clear to auscultation bilaterally, no coarseness crackles or wheezing, no cough present CHEST: Tachypneic with symmetrical movement, no accessory muscle use, good tidal volume. ABDOMEN: Soft, mild distention, attempting to percussion, no abdominal tenderness, no guarding or peritoneal signs, no organomegaly, no flank or suprapubic tenderness, active bowel tones. EXTREMITIES: moves all extremities, strength is 5/5 and symmetrical, no deformities or joint effusions. NEUROLOGIC: AAO to person and place only, difficulty responding to questions occasional inappropriate responses to questions, word-finding difficulty, cranial nerves II-XII grossly intact, decrease a sensation bilateral feet and hands, slow and inaccurate finger to nose testing. PSYCH: Fair eye contact, follows commands, difficulty concentrating, mildly anxious Objective Labs Result Diagrams: 12/01/19 12:12 12/01/19 05:34 Labs: Laboratory Results - last 24 hr 11/30/19 11/30/19 11/30/19 16:37 16:37 17:10 WBC 13.8 H RBC 2.56 L Hgb 8.0 L Hct 23.9 L MCV 93.2 MCH 31.3 MCHC 33.6 RDW 13.1 Plt Count 320 Neut % (Auto) 91.2 H Lymph % (Auto) 5.1 L [place] % (Auto) 3.3 Eos % (Auto) 0.1 L Baso % (Auto) 0.3 Neut # (Auto) 82164 H Lymph # (Auto) 700 L [place] # (Auto) 500 Eos # (Auto) 0 Baso # (Auto) 0 Percent Retic PT INR APTT Sodium 131 L Potassium 4.1 Chloride 94 L Carbon Dioxide 12 L BUN 59 H Creatinine 1.46 H Estimated GFR 34.6 L BUN/Creatinine Ratio 40.4 H Glucose 427 H Calcium 8.9 Magnesium Total Bilirubin 0.2 AST 31 ALT 29 Alkaline Phosphatase 81 D Total Creatine Kinase CK-MB (CK-2) CK-MB (CK-2) Rel Index Troponin I 0.039 H Total Protein 6.1 L Albumin 3.7 Globulin 2.4 Albumin/Globulin Ratio 1.5 TSH Urine Color Yellow Urine Appearance Clear Urine pH 5.5 Ur Specific [place] 1.010 Urine Protein Negative Urine Glucose (UA) 1+ H Urine Ketones Negative Urine Occult Blood Negative Urine Nitrate Negative Urine Bilirubin Negative Urine Urobilinogen 0.2 Ur Leukocyte Esterase Negative Urine RBC None seen Urine WBC None seen Urine Bacteria None seen Ur Culture Indicated? Cult not indicated U Opiates 300ng/mL cut Ur Oxycodone Screen Urine Methadone Screen Ur Barbiturates Screen U Tricyclic Antidepress Ur Phencyclidine Scrn Ur Amphetamines Screen U Methamphetamines Scrn Ur MDMA Scrn (Ecstasy) U Benzodiazepines Scrn Urine Cocaine Screen U Marijuana (THC) Screen Blood Type Antibody Screen 11/30/19 11/30/19 11/30/19 17:10 17:30 22:57 WBC 14.4 H RBC 2.58 L Hgb 8.1 L Hct 23.5 L MCV 91.3 MCH 31.6 MCHC 34.6 RDW 13.3 Plt Count 325 Neut % (Auto) 79.0 H Lymph % (Auto) 14.3 L [place] % (Auto) 6.1 Eos % (Auto) 0.0 L Baso % (Auto) 0.6 Neut # (Auto) 38013 H Lymph # (Auto) 2100 [place] # (Auto) 900 Eos # (Auto) 0 Baso # (Auto) 100 Percent Retic PT INR APTT Sodium Potassium Chloride Carbon Dioxide BUN Creatinine Estimated GFR BUN/Creatinine Ratio Glucose Calcium Magnesium Total Bilirubin AST ALT Alkaline Phosphatase Total Creatine Kinase CK-MB (CK-2) CK-MB (CK-2) Rel Index Troponin I Total Protein Albumin Globulin Albumin/Globulin Ratio TSH Urine Color Urine Appearance Urine pH Ur Specific [place] Urine Protein Urine Glucose (UA) Urine Ketones Urine Occult Blood Urine Nitrate Urine Bilirubin Urine Urobilinogen Ur Leukocyte Esterase Urine RBC Urine WBC Urine Bacteria Ur Culture Indicated? U Opiates 300ng/mL cut Negative Ur Oxycodone Screen Negative Urine Methadone Screen Negative Ur Barbiturates Screen Negative U Tricyclic Antidepress Positive H Ur Phencyclidine Scrn Negative Ur Amphetamines Screen Negative U Methamphetamines Scrn Negative Ur MDMA Scrn (Ecstasy) Negative U Benzodiazepines Scrn Positive H Urine Cocaine Screen Negative U Marijuana (THC) Screen Negative Blood Type B Positive Antibody Screen Negative 11/30/19 11/30/19 11/30/19 22:57 22:57 22:57 WBC RBC Hgb Hct MCV MCH MCHC RDW Plt Count Neut % (Auto) Lymph % (Auto) [place] % (Auto) Eos % (Auto) Baso % (Auto) Neut # (Auto) Lymph # (Auto) [place] # (Auto) Eos # (Auto) Baso # (Auto) Percent Retic PT 11.3 INR 1.0 APTT 25 L D Sodium 133 L Potassium 3.3 L Chloride 98 Carbon Dioxide 25 BUN 54 H Creatinine 1.23 H Estimated GFR 42.2 L BUN/Creatinine Ratio 43.9 H Glucose 316 H D Calcium 9.4 Magnesium 1.9 Total Bilirubin AST ALT Alkaline Phosphatase Total Creatine Kinase 150 H CK-MB (CK-2) 5.65 H CK-MB (CK-2) Rel Index 3.8 Troponin I 0.049 H Total Protein Albumin Globulin Albumin/Globulin Ratio TSH Urine Color Urine Appearance Urine pH Ur Specific [place] Urine Protein Urine Glucose (UA) Urine Ketones Urine Occult Blood Urine Nitrate Urine Bilirubin Urine Urobilinogen Ur Leukocyte Esterase Urine RBC Urine WBC Urine Bacteria Ur Culture Indicated? U Opiates 300ng/mL cut Ur Oxycodone Screen Urine Methadone Screen Ur Barbiturates Screen U Tricyclic Antidepress Ur Phencyclidine Scrn Ur Amphetamines Screen U Methamphetamines Scrn Ur MDMA Scrn (Ecstasy) U Benzodiazepines Scrn Urine Cocaine Screen U Marijuana (THC) Screen Blood Type Antibody Screen 12/01/19 12/01/19 12/01/19 05:34 05:34 05:34 WBC 12.0 H RBC 2.40 L Hgb 7.6 L Hct 22.0 L MCV 91.9 MCH 31.7 MCHC 34.5 RDW 13.2 Plt Count 292 Neut % (Auto) 81.9 H Lymph % (Auto) 11.5 L [place] % (Auto) 5.9 Eos % (Auto) 0.0 L Baso % (Auto) 0.7 Neut # (Auto) 9800 H Lymph # (Auto) 1400 [place] # (Auto) 700 Eos # (Auto) 0 Baso # (Auto) 100 Percent Retic PT INR APTT Sodium 136 L Potassium 3.7 Chloride 104 Carbon Dioxide 23 BUN 48 H Creatinine 1.16 H Estimated GFR 45.2 L BUN/Creatinine Ratio 41.4 H Glucose 204 H D Calcium 9.1 Magnesium Total Bilirubin AST ALT Alkaline Phosphatase Total Creatine Kinase CK-MB (CK-2) CK-MB (CK-2) Rel Index Troponin I Total Protein Albumin Globulin Albumin/Globulin Ratio TSH 4.47 D Urine Color Urine Appearance Urine pH Ur Specific [place] Urine Protein Urine Glucose (UA) Urine Ketones Urine Occult Blood Urine Nitrate Urine Bilirubin Urine Urobilinogen Ur Leukocyte Esterase Urine RBC Urine WBC Urine Bacteria Ur Culture Indicated? U Opiates 300ng/mL cut Ur Oxycodone Screen Urine Methadone Screen Ur Barbiturates Screen U Tricyclic Antidepress Ur Phencyclidine Scrn Ur Amphetamines Screen U Methamphetamines Scrn Ur MDMA Scrn (Ecstasy) U Benzodiazepines Scrn Urine Cocaine Screen U Marijuana (THC) Screen Blood Type Antibody Screen 12/01/19 12/01/19 12/01/19 05:34 12:12 12:12 WBC RBC Hgb 7.1 L Hct 21.0 L MCV MCH MCHC RDW Plt Count Neut % (Auto) Lymph % (Auto) [place] % (Auto) Eos % (Auto) Baso % (Auto) Neut # (Auto) Lymph # (Auto) [place] # (Auto) Eos # (Auto) Baso # (Auto) Percent Retic PT INR APTT Sodium Potassium Chloride Carbon Dioxide BUN Creatinine Estimated GFR BUN/Creatinine Ratio Glucose Calcium Magnesium Total Bilirubin AST ALT Alkaline Phosphatase Total Creatine Kinase CK-MB (CK-2) CK-MB (CK-2) Rel Index Troponin I 0.051 H 0.034 Total Protein Albumin Globulin Albumin/Globulin Ratio TSH Urine Color Urine Appearance Urine pH Ur Specific [place] Urine Protein Urine Glucose (UA) Urine Ketones Urine Occult Blood Urine Nitrate Urine Bilirubin Urine Urobilinogen Ur Leukocyte Esterase Urine RBC Urine WBC Urine Bacteria Ur Culture Indicated? U Opiates 300ng/mL cut Ur Oxycodone Screen Urine Methadone Screen Ur Barbiturates Screen U Tricyclic Antidepress Ur Phencyclidine Scrn Ur Amphetamines Screen U Methamphetamines Scrn Ur MDMA Scrn (Ecstasy) U Benzodiazepines Scrn Urine Cocaine Screen U Marijuana (THC) Screen Blood Type Antibody Screen 12/01/19 12:12 WBC RBC Hgb Hct MCV MCH MCHC RDW Plt Count Neut % (Auto) Lymph % (Auto) [place] % (Auto) Eos % (Auto) Baso % (Auto) Neut # (Auto) Lymph # (Auto) [place] # (Auto) Eos # (Auto) Baso # (Auto) Percent Retic 3.1 H PT INR APTT Sodium Potassium Chloride Carbon Dioxide BUN Creatinine Estimated GFR BUN/Creatinine Ratio Glucose Calcium Magnesium Total Bilirubin AST ALT Alkaline Phosphatase Total Creatine Kinase CK-MB (CK-2) CK-MB (CK-2) Rel Index Troponin I Total Protein Albumin Globulin Albumin/Globulin Ratio TSH Urine Color Urine Appearance Urine pH Ur Specific [place] Urine Protein Urine Glucose (UA) Urine Ketones Urine Occult Blood Urine Nitrate Urine Bilirubin Urine Urobilinogen Ur Leukocyte Esterase Urine RBC Urine WBC Urine Bacteria Ur Culture Indicated? U Opiates 300ng/mL cut Ur Oxycodone Screen Urine Methadone Screen Ur Barbiturates Screen U Tricyclic Antidepress Ur Phencyclidine Scrn Ur Amphetamines Screen U Methamphetamines Scrn Ur MDMA Scrn (Ecstasy) U Benzodiazepines Scrn Urine Cocaine Screen U Marijuana (THC) Screen Blood Type Antibody Screen Assessment & Plan Assessment & Plan narrative: 1. New onset seizures, resolved upon arrival, active -The patient had 2 witnessed tonic-clonic seizures 1st by her the 2nd in the care of paramedics. -The patient received Versed in the field and is positive for benzodiazepines on the urine tox screen likely from this medication. -Patient is alcoholic consuming 3 vodka daily for the last month and before that wine. The patient has had only 1 drink today and consideration is given to alcohol withdrawal. For the patient's the patient is not previously exhibited withdrawal symptoms. The other possibilities for benzodiazepine withdrawal. The patient stated to me that she had not taken this for many weeks now. -Patient is started on CIWA protocol with seizure precautions, lorazepam 2 mg IV as needed seizure and lorazepam p.o./IV per CIWA protocol. -Ordered an IV banana bag with thiamine and folate daily. -On head CT severe periventricular deep white matter chronic small-vessel changes noted as well as small chronic bilateral thalamic lacunar infarct. Consideration is given to stroke considering patient's continued level of neurological impairment not at baseline per the patient's . Currently awaiting MRI stroke protocol. -Will obtain MRI stroke protocol. -depending on MRI results, consider further consultation with neurology and possible transfer for neurologic evaluation. 2. Acute anemia, normochromic normocytic, present on admission, active. -Unknown etiology, patient denies hematemesis and hematochezia. She takes daily aspirin 81 mg and Pepto-Bismol frequently and reports his stools are always black. Last BM was this morning. -Admission labs finds a hemoglobin of 8.0 and hematocrit 23.9, H&H drawn on 11/26 2019, hemoglobin was 14.4 and hematocrit of 41.4. -still awaiting stool guaiac -hemoglobin has down trended to 7.1. Patient was started on Protonix IV b.i.d. for possible upper GI bleeding. -consider CT imaging to evaluate for hematoma given that the patient presented with seizures. -reticulocyte count 3.1%, will order LDH and haptoglobin as well as iron profile at next lab evaluation at 6:00 p.m. -goal Hg >7, transfuse if lower. -consider surgical consultation 3. Chronic kidney disease stage III, present on admission, active -Creatinine on admission is 1.46, and was found to be 1.2 yesterday, increase in creatinine likely related to seizures. Improved today to 1.16. -Will check creatinine kinase has component of cardiac panel. -Will avoid renal toxic agents and renal dose medications as indicated. 4. Diabetes type 2, insulin-dependent with hyperglycemia, present on admission, active -Blood sugar on admission labs is 427, unknown if patient received dextrose from EMS. -Last hemoglobin A1c obtained on 10/25/2019 was 8.4. -Fingerstick blood sugars a.c. and HS with correctional insulin medium range. -Continue patient's home regimen of detemir insulin 34 units in the morning and 26 units at night. -will follow-up patient's fingerstick blood sugars and treat as indicated. 5. Elevated serum troponin, unclear significance, present on admission, active. -Troponin is found to be 0.039 on admission labs, this ultimately downtrended. -Troponin elevation may be related to presenting seizures. No ischemic changes on EKG. 6. Hyponatremia, present on admission, active. -Patient has had hyponatremia since labs on 11/24 when sodium level was 127, sodium level today is improved at 136. Will discontinue IV fluids. 7. Generalized anxiety disorder with panic attacks, present on admission, active. -The patient's anxiety is exacerbated by current confusional state. -Patient with a long history of anxiety for which she takes hydroxyzine 25 mg 2- 3 times daily. -The patient is seen in the ER on 11/26/2019 for anxiety and received lorazepam. -Will continue patient's home regimen of propranolol 20 mg twice daily, sertraline was discontinued given the possibility that it can lower seizure threshold. 8. Alcohol abuse, present on admission, active. -New the patient nor her relate previous withdrawal symptoms or withdrawal seizures. -CIWA protocol with lorazepam as noted above. VTE prophylaxis: Bilateral compression hose, will hold off on chemical prophylaxis pending re-evaluation of H&H and evaluation of possible GI bleeding. IV fluid: Will discontinue Diet: clear liquid The patient is admitted to the hospital for new onset seizures possibly related to a neurological event and less likely related to alcohol withdrawal or benzo withdrawal. Patient will be admitted as an inpatient with expected length of stay to be greater than 2 midnights. She may need transfer depending on MRI results. Quality VTE Deep Vein Thrombosis/Pulmonary Embolism Present on Admission: No
[2019-12-01] MEDS: LORazepam 2 MG/ML INJ 1 MG IV (16:47)
[2019-12-01 18:00] LABS: Hemoglobin 6.9 g/dL (12.0-16.0)
[2019-12-01 18:05] LABS: Hematocrit 19.8 % (36-46)
[2019-12-01 18:15] LABS: HEMOLYSIS < 15 (0-50); Iron 65 ug/dL (37-170); Lactate Dehydrogenase 368 U/L (313-618)
[2019-12-01 18:26] LABS: Percent Iron Saturation 23 % (15-50); Total Iron Binding Capacity 288 ug/dL (265-497); Transferrin 222 mg/dL (206-381)
--- NOTE | 2019-12-01 19:09 | DI.CT.S_ITS ---
PROCEDURE: CT CHEST ABD PEL WO CON INDICATIONS: worsening anemia, s/p seizure, eval for possible hematoma TECHNIQUE: After the administration of oral contrast, 5 mm thick sections acquired from the lung apices to the symphysis pubis. 5 mm thick coronal and sagittal reformats acquired, with additional 7 mm coronal MIP reformats through the lungs. For radiation dose reduction, the following was used: automated exposure control, adjustment of mA and/or kV according to patient size. COMPARISON: [facility], CT, CT CHEST W CON, 11/10/2019, 11:44. FINDINGS: Image quality: Motion is present throughout the examination, limiting areas of evaluation. CHEST: Lungs and pleura: Linear right basilar opacities present slightly more prominent when compared to prior exam, suggestive of atelectasis. Mediastinum: Heart size is normal. No pericardial effusion. No mediastinal adenopathy by CT size criteria. Thoracic aorta and central pulmonary arteries are normal in size. Esophagus is normal in caliber. No hiatal hernia. Chest wall: No axillary or supraclavicular adenopathy by size criteria. Thyroid gland is unremarkable. ABDOMEN: Solid organs: Liver is normal in size. Gallbladder is unremarkable. Pancreas is normal in contours. Spleen is normal in size. No adrenal nodules. Both kidneys are normal in size, without hydronephrosis or nephrolithiasis. Peritoneum and bowel: Small and large bowel loops are normal in caliber and wall thickness. No free fluid or air. Nodes and vessels: No retroperitoneal or mesenteric adenopathy by size criteria. Aorta and inferior vena cava are normal in size. Miscellaneous: No ventral hernias. PELVIS: Genitourinary: Bladder wall thickness is normal. Miscellaneous: No inguinal hernias or adenopathy. Bones: No suspicious bony lesions. No vertebral body compression fractures. IMPRESSION: 1. Bibasilar atelectasis. 2. No visualized cause of anemia. Dictated by: Luiza Almodovar M.D. on 12/01/2019 at 21:34 Approved by: Luiza Almodovar M.D. on 12/01/2019 at 21:38
[2019-12-01] MEDS: DEXTROSE 50 % IN WATER 25 GM/50 ML SYRINGE IV ×2 (19:28→19:48)
--- NOTE | 2019-12-01 19:28 | PC.NURSE ---
Addendum entered by Jada De La Cruz R.N. 12/01/19 19:45: BS 62 1939. Giving 25gm Dextrose now. Second IV being placed. Responsive to voice, opening eyes to command. Original Note: Called into room by [employer] TECHNICIAN for pt nonresponsive 1909. Responds only to sternal rub. 120/62, 65 HR, 96% on NRB. Pt BG 44, given 1 amp D5. Pt not on tele during event, removed for MRI earlier. 1929 HR 88, BP 102/52, 95% on NRB. Opening eyes to command, stating her own name. RN at bedside now.
[2019-12-01 20:43] LABS: BUN Creatinine Ratio 32.7 (6-22); Bilirubin Total 0.3 mg/dL (0.2-1.3); Blood Urea Nitrogen 35 mg/dL (7-17); Calcium 8.8 mg/dL (8.4-10.2); Carbon Dioxide 25 mmol/L (22-32); Chloride 107 mmol/L (98-107); Estimated Glomerular Filt Rate 49.6 mL/min (>60); Glucose 68 mg/dL (80-110); HEMOLYSIS < 15 (0-50); Potassium 3.4 mmol/L (3.4-5.1); Sodium 138 mmol/L (137-145)
[2019-12-01] MEDS: ATORVASTATIN 10 MG TABLET PO (21:15)
[2019-12-01] MEDS: QUETIAPINE 25 MG TABLET PO (21:15)
[2019-12-01] MEDS: PANTOPRAZOLE 40 MG VIAL IV (21:15)
[2019-12-01 23:12] LABS: Hemoglobin 7.9 g/dL (12.0-16.0)
[2019-12-01 23:15] LABS: Hematocrit 22.4 % (36-46)
[2019-12-02] VITALS (14 sets, daily range): BP systolic 100–154; BP diastolic 48–97; PULSE 68–92; RESP 16–20; TEMP 36.2–37.1; O2SAT 92–100
--- NOTE | 2019-12-02 05:25 | PC.NURSE ---
Addendum entered by Dorothea Elise R.N. 12/02/19 06:08: Patient refused bladder scan, told AUXILIARY EQUIPMENT TENDER that she wanted to be left alone and just want to go home. Also refused to be changed or checked for urine. Original Note: Shift note: Patient responds to verbal stimulus, opens eyes and answers basic questions but requests to go back to sleep. Did uncover herself and started rocking back and forth in bed with possible attempts to get up, educated patient that it was time to sleep and she said okay and allowed herself to be covered back up. Does not appear to be short of breath at rest, saturating 95% on RA. No overt c/o chest pain, BP is soft 100/69, had 1U of blood on evening shift. BP at 2nd check was 136/53. Incontinent of bladder, BS @ 0300 was est. 388ml and after brief change was 316ml. Will check again before change of shift as it appears patient is retaining. Patient still quite drowsy on shift, q2 turns for skin integrity. Melatonin and 2100 ativan held due to sedation, seroquel is also on hold at this time. High fall risk, bed alarm on and functioning, patient not able to understand or demonstrate call light teaching and use, within sight of nursing station.
[2019-12-02] MEDS: INSULIN DETEMIR 100 UNIT/ML INSULN.PEN 34 UNIT SUBCUT (07:59)
[2019-12-02] MEDS: ASPIRIN EC 81 MG TABLET PO (08:01)
[2019-12-02] MEDS: THIAMINE 100 MG TABLET PO (08:01)
[2019-12-02] MEDS: FOLIC ACID 1 MG TABLET PO (08:01)
[2019-12-02] MEDS: MULTIVITAMIN 1 TABLET 1 TAB PO (08:02)
[2019-12-02] MEDS: LORazepam 0.5 MG TABLET PO ×3 (08:02→20:14)
[2019-12-02] MEDS: PANTOPRAZOLE 40 MG VIAL IV ×2 (08:02→20:15)
[2019-12-02] MEDS: lisinopriL 10 MG TABLET 30 MG PO (08:02)
[2019-12-02] MEDS: PROPRANOLOL 10 MG TABLET 20 MG PO ×2 (08:03→20:28)
[2019-12-02 09:55] LABS: Add Manual Diff / Slide Review NO; Basophils Absolute Auto 100 /uL (0-100); Basophils Percent Auto 0.8 % (0-2); Eosinophils Absolute Auto 100 /uL (0-450); Eosinophils Percent Auto 0.6 % (2-4); Hematocrit 25.3 % (36-46); Hemoglobin 8.8 g/dL (12.0-16.0); Lymphocytes Absolute Auto 1400 /uL (1100-4500); Lymphocytes Percent Auto 11.8 % (25-40); Mean Corpuscular HGB Conc 34.8 % (30-36); Mean Corpuscular Hemoglobin 31.7 PG (26-34); Mean Corpuscular Volume 91.2 fL (80-100); Monocytes Absolute Auto 600 /uL (0-900); Monocytes Percent Auto 4.9 % (3-14); Neutrophils Absolute Auto 9600 /uL (1500-7000); Neutrophils Percent Auto 81.9 % (50-75); Platelet Count 254 X10^3/uL (150-400); Red Blood Cell Count 2.77 X10^6/uL (4.0-5.2); Red Cell Distribution Width 13.8 % (11.6-14.8); White Blood Cell Count 11.7 X10^3/uL (4.5-11.0)
[2019-12-02 10:06] LABS: Alanine Aminotransferase 20 IU/L (<35); Albumin 3.7 g/dL (3.5-5.0); Albumin Globulin Ratio 1.4 (1.0-2.8); Alkaline Phosphatase 77 U/L (38-126); Aspartate Aminotransferase 42 IU/L (14-36); BUN Creatinine Ratio 23.4 (6-22); Bilirubin Total 0.7 mg/dL (0.2-1.3); Bilirubin Unconjugated 0.6 mg/dL (0.0-1.1); Blood Urea Nitrogen 26 mg/dL (7-17); Calcium 8.9 mg/dL (8.4-10.2); Carbon Dioxide 26 mmol/L (22-32); Chloride 105 mmol/L (98-107); Estimated Glomerular Filt Rate 47.5 mL/min (>60); Globulin 2.6 g/dL (1.7-4.1); Glucose 155 mg/dL (80-110); HEMOLYSIS < 15 (0-50); Potassium 3.5 mmol/L (3.4-5.1); Sodium 138 mmol/L (137-145); Total Protein 6.3 g/dL (6.3-8.2)
[2019-12-02 10:09] LABS: Haptoglobin 211 mg/dL (42-346)
[2019-12-02] MEDS: levETIRAcetam 250 MG TABLET 500 MG PO ×2 (12:36→20:14)
[2019-12-02] MEDS: INSULIN ASPART 100 UNIT/ML INSULN PEN SUBCUT ×2 (12:39→17:43)
--- NOTE | 2019-12-02 13:46 | CM.DPC ---
Addendum entered by Ely Arndt R.N. 12/02/19 15:59: Cm/Rn heard back from [facility] that [facility] do not have beds available until Thursday or of next week. Cm/ RN talked with patient and stated that they are ok with [facility] or [facility] a second choice. Cm/RN called [facility] and they would need a COVID-19 test done and resulted as negative before they can consider admission of the patient. CM/RN called [facility] and left a voice message and sent clinicals for there review. CM/RN will follow up with [facility] in the morning. Ely Arndt RN Original Note: DCP continued: EMR reviewed: Cm/Rn spoke with Dr. Chavez about patient today during rounds and discussed patient needing SNF vrs home with . CM/RN spoke with patient and her at the bedside and they agreed that SNF is a good option for D/C. CM/Rn gave patient the medicare approved list to review and to make a choice of facilities. Patient choose [facility] here in [place]. Cm/RN called Lina at [facility] and spoke with her about reviewing patient for possible admission. CM/Rn will follow up with [facility] tomorrow if not heard back form February today. PASRR needed once SNF is lined up. Ely Arndt RN
--- NOTE | 2019-12-02 14:03 | PM.PN.1 ---
Subjective Subjective Date Patient Seen: 12/02/19 Time Patient Seen: 09:20 Interval history: Ms. Amanda Farah is a 79-year-old female with a history significant for diabetes type 2 with hyperglycemia hypertension, generalized anxiety disorder with panic attacks, melanoma, and neuropathy who was brought into the ER by EMS after having a seizure at home and another with EMS. Etiology was thought to be secondary to alcohol withdrawal, with further possibilities including benzodiazepine withdrawal, possible CVA, or primary seizure disorder. Brain MRI performed yesterday did show an acute/subacute infarct in her right frontal lobe, as well as diffuse atrophy. Discussed today with [place] stroke team, who agreed with the current assessment and did recommend that she start on Keppra with a neurology follow-up as an outpatient with a neurologist. She also had an acute anemia, however the source is unclear at this time. She did receive a transfusion of 1 unit of packed red blood cells yesterday with appropriate response, and this morning her hemoglobin improved. She was started on IV Protonix yesterday for a possible GI bleed, however nothing has been found at this time. CT chest abdomen pelvis without contrast to look for possible hematoma given presentation after seizure was negative for a hematoma. Exam Vital Signs (past 8 hours): - 12/02/19 08:00 12/02/19 08:38 12/02/19 10:39 Temperature 98.5 F Pulse Rate 81 Respiratory Rate 18 Blood Pressure 140/48 L Pulse Oximetry 96 92 96 12/02/19 12:00 Temperature 98.8 F Pulse Rate 78 Respiratory Rate 18 Blood Pressure 136/97 H Pulse Oximetry 97 Oxygen Delivery Method Room Air Oxygen Flow Rate 0 Narrative Exam Narrative: GENERAL APPEARANCE: well developed, pale elderly female in no acute distress. HEENT: Atraumatic, pupils are sluggish, PERRLA, no ptosis, conjunctiva clear sclera anicteric, EOMs intact without nystagmus, no sinus tenderness to percussion, no rhinorrhea, mucous membranes are moist and pale without lesions or exudate. NECK/THYROID: neck supple, no JVD, bilateral carotid bruit, no thyromegaly, trachea midline. LYMPH NODES: no cervical or supraclavicular lymphadenopathy. SKIN: Pale, warm and dry, no visible lesions, rashes, ulcerations or petechiae. HEART: regular rate and rhythm, S1-S2, 1/6 systolic murmur, no rubs or gallops, brisk capillary refill, 2+ dorsalis pedis pulses, no edema LUNGS: clear to auscultation bilaterally, no coarseness crackles or wheezing, no cough present CHEST: Tachypneic with symmetrical movement, no accessory muscle use, good tidal volume. ABDOMEN: Soft, mild distention, attempting to percussion, no abdominal tenderness, no guarding or peritoneal signs, no organomegaly, no flank or suprapubic tenderness, active bowel tones. EXTREMITIES: moves all extremities, strength is 5/5 and symmetrical, no deformities or joint effusions. NEUROLOGIC: AAO to person and place only, difficulty responding to questions occasional inappropriate responses to questions, word-finding difficulty, cranial nerves II-XII grossly intact, decrease a sensation bilateral feet and hands, slow and inaccurate finger to nose testing. PSYCH: Fair eye contact, follows commands, difficulty concentrating, mildly anxious Objective Labs Result Diagrams: 12/02/19 09:36 12/02/19 09:36 Labs: Laboratory Results - last 24 hr 11/30/19 12/01/19 12/01/19 17:30 12:12 17:44 WBC RBC Hgb 6.9 L* Hct 19.8 L* MCV MCH MCHC RDW Plt Count Neut % (Auto) Lymph % (Auto) Grundy % (Auto) Eos % (Auto) Baso % (Auto) Neut # (Auto) Lymph # (Auto) Grundy # (Auto) Eos # (Auto) Baso # (Auto) Percent Retic 3.1 H Haptoglobin Sodium Potassium Chloride Carbon Dioxide BUN Creatinine Estimated GFR BUN/Creatinine Ratio Glucose Calcium Magnesium Iron TIBC % Saturation Transferrin Total Bilirubin Conjugated Bilirubin Unconjugated Bilirubin AST ALT Alkaline Phosphatase Lactate Dehydrogenase Total Protein Albumin Globulin Albumin/Globulin Ratio Blood Type B Positive Antibody Screen Negative Crossmatch See Detail 12/01/19 12/01/19 12/01/19 17:44 17:44 17:44 WBC RBC Hgb Hct MCV MCH MCHC RDW Plt Count Neut % (Auto) Lymph % (Auto) Grundy % (Auto) Eos % (Auto) Baso % (Auto) Neut # (Auto) Lymph # (Auto) Grundy # (Auto) Eos # (Auto) Baso # (Auto) Percent Retic Haptoglobin 211 Sodium Potassium Chloride Carbon Dioxide BUN Creatinine Estimated GFR BUN/Creatinine Ratio Glucose Calcium Magnesium Iron 65 TIBC 288 % Saturation 23 Transferrin 222 Total Bilirubin Conjugated Bilirubin Unconjugated Bilirubin AST ALT Alkaline Phosphatase Lactate Dehydrogenase 368 Total Protein Albumin Globulin Albumin/Globulin Ratio Blood Type Antibody Screen Crossmatch 12/01/19 12/01/19 12/02/19 17:44 23:00 09:36 WBC 11.7 H RBC 2.77 L Hgb 7.9 L 8.8 L Hct 22.4 L 25.3 L MCV 91.2 MCH 31.7 MCHC 34.8 RDW 13.8 Plt Count 254 Neut % (Auto) 81.9 H Lymph % (Auto) 11.8 L Grundy % (Auto) 4.9 Eos % (Auto) 0.6 L Baso % (Auto) 0.8 Neut # (Auto) 9600 H Lymph # (Auto) 1400 Grundy # (Auto) 600 Eos # (Auto) 100 Baso # (Auto) 100 Percent Retic Haptoglobin Sodium 138 Potassium 3.4 Chloride 107 Carbon Dioxide 25 BUN 35 H Creatinine 1.07 H Estimated GFR 49.6 L BUN/Creatinine Ratio 32.7 H Glucose 68 L D Calcium 8.8 Magnesium Iron TIBC % Saturation Transferrin Total Bilirubin 0.3 Conjugated Bilirubin Unconjugated Bilirubin AST ALT Alkaline Phosphatase Lactate Dehydrogenase Cancelled Total Protein Albumin Globulin Albumin/Globulin Ratio Blood Type Antibody Screen Crossmatch 12/02/19 12/02/19 09:36 09:36 WBC RBC Hgb Hct MCV MCH MCHC RDW Plt Count Neut % (Auto) Lymph % (Auto) Grundy % (Auto) Eos % (Auto) Baso % (Auto) Neut # (Auto) Lymph # (Auto) Grundy # (Auto) Eos # (Auto) Baso # (Auto) Percent Retic Haptoglobin Sodium 138 Potassium 3.5 Chloride 105 Carbon Dioxide 26 BUN 26 H Creatinine 1.11 H Estimated GFR 47.5 L BUN/Creatinine Ratio 23.4 H Glucose 155 H Calcium 8.9 Magnesium 2.0 Iron TIBC % Saturation Transferrin Total Bilirubin 0.7 Conjugated Bilirubin 0.0 Unconjugated Bilirubin 0.6 AST 42 H ALT 20 Alkaline Phosphatase 77 Lactate Dehydrogenase Total Protein 6.3 Albumin 3.7 Globulin 2.6 Albumin/Globulin Ratio 1.4 Blood Type Antibody Screen Crossmatch Assessment & Plan Assessment & Plan narrative: Amanda Farah is a 79-year-old female with a history significant for diabetes type 2 with hyperglycemia hypertension, generalized anxiety disorder with panic attacks, melanoma, and neuropathy who was admitted after having 2 witnessed seizures, she was found to have an acute/subacute infarct on her brain MRI and his been started on seizure prophylaxis. She further developed an acute anemia, possibly secondary to an upper GI bleed, however the source is uncertain at this time. She has not had any seizure episodes while admitted, and hemoglobin is now improving. Physical therapy is recommending discharge to [facility] [facility]. 1. 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 -The patient received Versed in the field and is positive for benzodiazepines on the urine tox screen likely from this medication. -Patient is alcoholic consuming 3 vodka daily for the last month and before that wine. The patient has had only 1 drink today and consideration is given to alcohol withdrawal. For the patient's the patient is not previously exhibited withdrawal symptoms. The other possibility is for benzodiazepine withdrawal. The patient stated to me that she had not taken this for many weeks now. -Patient is started on CIWA protocol with seizure precautions, lorazepam 2 mg IV as needed seizure and lorazepam p.o./IV per CIWA protocol. -Ordered an IV banana bag with thiamine and folate daily. -On head CT severe periventricular deep white matter chronic small-vessel changes noted as well as small chronic bilateral thalamic lacunar infarct. Consideration is given to stroke considering patient's continued level of neurological impairment not at baseline per the patient's . 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 -[facility] neurology was consulted who recommended starting Keppra 500 mg twice daily and follow-up with an outpatient neurologist. -will increase Lipitor to 80 mg, and switch from aspirin to Plavix given anemia is now stable. 2. Acute anemia, normochromic normocytic, present on admission, active. -Unknown etiology, patient denies hematemesis and hematochezia. She takes daily aspirin 81 mg and Pepto-Bismol frequently and reports his stools are always black. Last BM was this morning. -Admission labs finds a hemoglobin of 8.0 and hematocrit 23.9, H&H drawn on 11/26 2019, hemoglobin was 14.4 and hematocrit of 41.4. -still awaiting stool guaiac -hemoglobin trended down to 6.9, patient was transfused 1 unit PRBC, with appropriate response to 7.9. She improved to 8.8 this morning. -consider CT imaging to evaluate for hematoma given that the patient presented with seizures. -reticulocyte count 3.1%, LDH was not elevated and haptoglobin is still pending. Iron profile was unremarkable. -patient was started on Protonix IV PPI b.i.d. after initial dose of 80 mg for possible, but unconfirmed, upper GI bleed. -goal Hg >7, transfuse if lower. 3. Chronic kidney disease stage III, present on admission, active -Creatinine on admission is 1.46, and was found to be 1.2 yesterday, increase in creatinine likely related to seizures. Improved today to 1.11. 4. Diabetes type 2, insulin-dependent with hyperglycemia, present on admission, active -Blood sugar on admission labs is 427, unknown if patient received dextrose from EMS. -Last hemoglobin A1c obtained on 10/25/2019 was 8.4. -Fingerstick blood sugars a.c. and HS with correctional insulin medium range. -Continue patient's home regimen of detemir insulin 34 units in the morning and 26 units at night. -will follow-up patient's fingerstick blood sugars and treat as indicated. 5. Elevated serum troponin, unclear significance, present on admission, active. -Troponin is found to be 0.039 on admission labs, this ultimately downtrended. -Troponin elevation may be related to presenting seizures. No ischemic changes on EKG. 6. Hyponatremia, present on admission, active. -Patient has had hyponatremia since labs on 11/24 when sodium level was 127, sodium level today is improved at 138. IV fluids have been discontinued. 7. Generalized anxiety disorder with panic attacks, present on admission, active. -The patient's anxiety is exacerbated by current confusional state. -Patient with a long history of anxiety for which she takes hydroxyzine 25 mg 2-3 times daily. -The patient is seen in the ER on 11/26/2019 for anxiety and received lorazepam. -Will continue patient's home regimen of propranolol 20 mg twice daily, sertraline was discontinued given the possibility that it can lower seizure threshold. 8. Alcohol abuse, present on admission, active. -New the patient nor her relate previous withdrawal symptoms or withdrawal seizures. -CIWA protocol with lorazepam as noted above. VTE prophylaxis: Bilateral compression hose, will hold off on chemical prophylaxis given possible GI bleeding, however patient is also going to be on Plavix for her acute CVA. Diet: Advanced to carb controlled diet Dispo: Plan for discharge urge to [facility] [facility] based on physical therapy evaluation. Per care management, looking at [facility] today. Possible discharge tomorrow pending bed availability. Quality VTE Deep Vein Thrombosis/Pulmonary Embolism Present on Admission: No
--- NOTE | 2019-12-02 14:50 | PT.IIE ---
Surgical History (Last Updated 11/30/19 @ 22:25 by HAYLEE Israel) History of (Acute) History of ectopic (Acute) Medical History (Last Updated 11/30/19 @ 22:25 by HAYLEE Israel) Alcohol abuse (Acute) Anxiety (Acute) Diabetes type 2, controlled (Acute) Hypertension (Acute) Neuropathy (Acute) Panic attack (Inactive) Physical Therapy Inpatient Evaluation/Re-Eval M1 PT/OT-IP Prior Functional Status Start: 12/02/19 15:47 Freq: NEEDED Status: Active Protocol: Document 12/02/19 14:50 AB (Rec: 12/02/19 16:18 AB [id number]) Medical Review Prior Functional Status Medical History Reviewed Yes Communication able to make needs known but is drowsy and stops talking mid conversation Mobility and Gait pt stated that she is modified independent with ambulation using a SPC but has been using a 4WW for the last 1-2 months Social History Household Members spouse Living Arrangements House Number of Floors (Floors) Two Floors Number of Stairs To Enter/Railing? pt stays on main level of ehouse has 14 steps with B rails to enter the house Home Environment Standard Height Toilet,Walk in Shower Home Equipment Four Wheel Walker,Straight Cane,Shower Seat with Backrest ,Grab Bars Near Toilet,Grab Bars In Shower M2 PT-IP Current Condition Start: 12/02/19 15:47 Freq: NEEDED Status: Active Protocol: Document 12/02/19 14:50 AB (Rec: 12/02/19 16:18 AB [id number]) Physical Therapy Current Condition Current Condition Evaluation Date 12/02/19 Treatment Diagnosis CVA; difficulty in walking Onset Date 11/30/2019 Precautions Other Precautions falls, seizure M3 PT-IP Subjective Start: 12/02/19 15:47 Freq: NEEDED Status: Active Protocol: Document 12/02/19 14:50 AB (Rec: 12/02/19 16:18 AB [id number]) Subjective Physical Therapy Visit Type Type Initial Evaluation Visit Start Time 14:50 Visit Stop Time 15:25 Total Visit Minutes 35 Number of CSR TECHNICIAN Visits 0 Physical Therapy Visit Comments Patient Comments agreeable to do PT Therapy Pain Assessment Pain Present Pain Present Denied Pain M4 PT-IP Mobility and Gait Start: 12/02/19 15:47 Freq: NEEDED Status: Active Protocol: Document 12/02/19 14:50 AB (Rec: 12/02/19 16:18 AB [id number]) PT-Bed Mobility Assessment Supine to Sit Supine to Sit Moderate Assistance,1 Person Assistance,Head of Bed Elevated PT-Transfer Assessment Sit to and From Stand Sit to and from Stand Maximum Assistance,2 Person Assistance,Use of Upper Extremities Equipment Transfer Assistive Device Gait Belt,Front Wheeled Walker Orthotic/Prosthetic Devices or Brace: No Transfers Transfer Destination Chair Transfer Technique ambulated using FWW Transfer Ability Level of Assist Maximum Assistance,2 Person Assistance,Use of Upper Extremities Comments Mobility Comments completed supine to sit with HOB elevated mod A and max cues. Pt with L sided neglect and requires cues to use LUE for mobility. required min A for sitting balance. completed sit to stand max A x 2 and max cues. required assist with LUE positioning and trunk stability with increase posterior LOB requiring max A for repositioning to center. max cues with all tasks. completed ambulation to the chair using FWW max A x 2 and max cues with assist with keeping trunk forward for stability and assist with weight shifting. positioned pt on the chair. call light and table placed within reach. Gait Assessment Gait Gait Assistance Required: Maximum Assistance,2 Person Assist Distance (Feet) 12 Able to Maintain Weight Bearing Status Yes During Gait Assistive Devices Assistive Device Gait Belt,Front Wheeled Walker Orthotic/Prosthetic Devices or Brace: No Gait Deviations General Gait Pattern Ataxic,Decreased Stride Length ,Decreased Feet Clearance,Step -to Gait Factors Limiting Gait Function Factors Limiting Gait Function Decreased Activity Tolerance, Decreased Sensation,Decreased Strength,Difficulty Following Directions,Incoordination, Limited Range of Motion,Poor Balance,Poor Safety Awareness PT-Balance Assessment Sitting Balance and Reactions Static Sitting Balance Ability Fair Dynamic Sitting Balance Ability Poor Standing Balance and Reactions Static Standing Balance Ability Poor Dynamic Standing Balance Ability Poor Device Used FWW M5 PT-IP Objective Assessments Start: 12/02/19 15:47 Freq: NEEDED Status: Active Protocol: Document 12/02/19 14:50 AB (Rec: 12/02/19 16:18 AB [id number]) Orientation Orientation/Cognition Level of Alertness Confusional State Orientation Name Safety Awareness Decreased Safety Awareness Memory Description Short Term Impaired,Mcc Impaired Gross Range of Motion Lower Extremity ROM Assessment Within Functional Limits Strength Lower Extremity Strength Assessment Bilaterally Impaired Comments Strength Comments RLE: 4-/5 LLE: 3+/5 Coordination Assessment Gross Coordination Gross Coordination Impaired Sensation Assessment Sensation Light Touch Impaired Proprioception (Position) Impaired Sensation Description Numbness Comments Sensation Comments BLE decrease sensation M6 PT-IP Treatment Start: 12/02/19 15:47 Freq: NEEDED Status: Active Protocol: Document 12/02/19 14:50 AB (Rec: 12/02/19 16:18 AB [id number]) Physical Therapy Treatment Education Education Provided Safety M7 PT-IP Assessment and Plan Start: 12/02/19 15:47 Freq: NEEDED Status: Active Protocol: Document 12/02/19 14:50 AB (Rec: 12/02/19 16:18 AB [id number]) PT Summary Assessment and Plan Potential Rehabilitation Potential Fair Status of Condition at Evaluation Evolving Summary Impairments Pain,ROM,Strength,Balance, Coordination,Sensation,Tone, Cognition,Bed Mobility, Transfers,Gait,Activity Tolerance Assessment Summary Pt presents with unsteady gait and L sided neglect requiring requiring 2 person assist for mobility and will benefit from SNF rehab to improve strength and function. Goals Bed Mobility Goal Standby Assistance Transfer Goal Minimal Assistance,Front Wheeled Walker Gait Goal Minimal Assistance,Front Wheel Walker Gait Distance 50 Days to Meet Goals 5 Frequency of Treatment Frequency Of Treatment Twice a Day Treatment Plan Physical Therapy Treatment Plan Bed Mobility Training,Transfer Training,Gait Training, Therapeutic Exercise,Balance Retraining,Discharge Planning, Hot or Cold Pack,Neuromuscular Re-ed,Coordination Retraining ,Manual Therapy Other Recommendations and Next Treatment transfers, ambulation Focus Recommendations To Nursing Amount of Assist Needed 2 Person Assist Discharge Recommendations PT Discharge Recommendations SNF Rehab Transportation Needs at Discharge Wheelchair/Cabulance
--- NOTE | 2019-12-02 15:48 | OT.IP.EVAL ---
Past Medical History (Last Updated 11/30/19 @ 22:25 by HAYLEE Israel) Alcohol abuse (Acute) Anxiety (Acute) Diabetes type 2, controlled (Acute) Hypertension (Acute) Neuropathy (Acute) Panic attack (Inactive) Surgical History (Last Updated 11/30/19 @ 22:25 by HAYLEE Israel) History of (Acute) History of ectopic (Acute) Occupational Therapy Inpatient Evaluation/Re-Eval M1 PT/OT-IP Prior Functional Status Start: 12/02/19 16:39 Freq: NEEDED Status: Active Protocol: Document 12/02/19 14:51 [facility] (Rec: 12/02/19 17:28 [facility] [id number]) Medical Review Prior Functional Status Medical History Reviewed Yes Communication able to make needs known but is drowsy and stops talking mid conversation Mobility and Gait pt stated that she is modified independent with ambulation using a SPC but has been using a 4WW for the last 1-2 months Activities of Daily Living and IADL's Pt's states prior to CVA was independent with all ADl's, and assisted with IADL needs. Prior 3 months ago did her own medications. Prior Functional Level (Other details) Pt states now she unable to walk without falling and at times unable to complete sentences. Pt not able to recall all home set-up and had to ask her fro clarity. Social History Household Members spouse Living Arrangements House Number of Floors (Floors) Two Floors Number of Stairs To Enter/Railing? 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 Pt states has had 3 falls in the past month. M2 OT-IP Current Condition Start: 12/02/19 16:39 Freq: Status: Active Protocol: Document 12/02/19 14:51 [facility] (Rec: 12/02/19 17:28 [facility] [id number]) Occupational Therapy Current Condition Current Condition Evaluation Date 12/02/19 Treatment Diagnosis CVA Diagnosis Onset Date 11/30/19 Weight Bearing Status Weight Bearing Status Weight Bear as Tolerated M3 OT- IP Subjective and Pain Start: 03/13/20 16:39 Freq: Status: Active Protocol: Document 12/02/19 14:51 [facility] (Rec: 12/02/19 17:28 [facility] [id number]) OT- Subjective Occupational Therapy Visit Type Type Initial Evaluation Visit Start Time 14:51 Visit Stop Time 15:48 Total Visit Minutes 57 Occupational Therapy Visit Comments Patient Comments Pt awake and in for the end of PT/OT eval. Notified nursing for pt to have chair alarm. Patient/Caregiver Goals Pt wanting not to fall when walking and be able talk in complete sentences. OT Pain Assessment Pain When Pain Assessed At Rest Pain Present Pain Present Denied Pain M4 OT- IP ADL's Start: 12/02/19 16:39 Freq: Status: Active Protocol: Document 12/02/19 14:51 [facility] (Rec: 12/02/19 17:28 [facility] [id number]) OT ASW-Bdrb-Opwhegh Comments OT Self-Feeding Comments Not at meal time, however called down to the kitchen to request larger handled utensils as pt having difficulty to manipulate regular utensil in her right hand. OT ADL-Grooming Comments OT Grooming Comments Not performed. OT ADL-Dressing General Eval Lower Body Dressing Ability Maximum Assistance Areas Needing Assistance Socks OT ADL-Toileting Comments OT Toileting Comments Pt not having to use the toilet. OT ADL-Bathing Comments OT Bathing Comments NOt at this time. M5 OT- IP IADL's Start: 12/02/19 16:39 Freq: Status: Active Protocol: Document 12/02/19 14:51 [facility] (Rec: 12/02/19 17:28 [facility] [id number]) OT-Instrumental Activities of Daily Living Home Safety Awareness Awareness of Need for Assistance at Home Decreased Awareness Ability to Problem Solve Emergency Unable to Problem Solve Situations Home Safety Comments Pt not aware what to do if toilet flooding at home or states would open a door if stranger present. Pt constantly looking at her when trying to answer safety questions. Medication Management Medication Management Caregiver Administers Money Management Money Management Caregiver Provides Assistance Meal Preparation Meal Preparation Caregiver Provides Assist Graduate Studies Dean Graduate Studies Dean Caregiver Provides Assist Driving Driving Caregiver Provides Assist M6 OT- IP Functional Cognition Start: 12/02/19 16:39 Freq: Status: Active Protocol: Document 12/02/19 14:51 [facility] (Rec: 12/02/19 17:28 [facility] [id number]) Cognitive Factors Limiting Selfcare Function Cognitive Ability Level of Alertness Alert,Confusional State Patient Orientation Name,Year,Place Attention Span Ability Capable of Focused Attention, Unable to Sustain Attention Ability to Follow Commands Able to Follow One Step Commands with Increased Time, Able to Follow One Step Commands with Repetition Memory Description Short Term Impaired,Working Impaired Safety Awareness Underestimates Need for Assistance Problem Solving Ability Unable to Identify Errors, Needs Assist to Identify Solutions Executive Function Ability Unable to Filter Distractions, Unable to Make Plans,Unable to Organize Plans,Unable to Remember Details Abstract Thinking Ability Unable to Make Generalizations ,Unable to Understand Generalizations,Unable to Draw Logical Conclusions Cognitive Tests SLUMS Pt scored 13/30 , normal score for pt's education is 27/30. Pt not able to remember details to solve 2 digit math equation, only able to recall 9 animals in one minute, able to recall 2/5 objects after time passed, unable to draw numbers or time on the clock and not completing numbers on the upper left side, able to recall 2/4 answers correctly, and unable to repeat 4 digit number backwards. Cognitive Comments Cognitive Assessment Comments Pt at times having difficulty to follow more than one step commands. Pt at times needing increased time to comprehend information. Pt also having left neglect for UE. Pt admits to having difficulty with short term memory prior, but now even more so and states has difficulty to speak in full sentences now. Spoke to physician regarding getting a DESIGN LEADER eval order. OT- Vision and Hearing OT- Hearing Assessment OT- Hearing Assessment WFL OT- Vision Assessment Visual Acuity Glasses All The Time Vision Assessment Comments Pt having difficulty to follow directions, able to scan , but difficulty to follow directions to assess for visual gold. M7 OT- IP Mobility and Balance Start: 12/02/19 16:39 Freq: Status: Active Protocol: Document 12/02/19 14:51 [facility] (Rec: 12/02/19 17:28 [facility] [id number]) OT- Bed Mobility Assessment Rolling Type of Rolling Roll to Right Level of Assistance Moderate Assistance Supine to Sit Supine to Sit Assist Moderate Assistance,1 Person Assistance OT-Transfer Assessment Sit to and From Stand Sit to and from Stand Maximum Assistance,2 Person Assistance Transfers Transfer Ability Maximum Assistance,2 Person Assistance Technique Transfer Destination Bed,Chair Transfer Technique Stand Step Pivot Devices Transfer Assistive Devices Gait Belt,Front Wheeled Walker Comments Mobility Comments Pt needing MAX A X 2 to stand and help guide LUE to push up from the bed, as pt having her hand flipped over and pushing on the wrist and back of her left hand and unaware. Once up to the FWW, assists for LUE control to hold to FWW and also to help get weight through the handle of FWW , another person assist for weight shifting and also for guiding the FWW. Pt has a tendency to lean backwards. OT- Balance Assessment Sitting Balance and Reactions Static Sitting Balance Ability Fair Dynamic Sitting Balance Ability Poor Standing Balance and Reactions Static Standing Balance Ability Poor M8 OT- IP Objective Assessments Start: 12/02/19 16:39 Freq: Status: Active Protocol: Document 12/02/19 14:51 [facility] (Rec: 12/02/19 17:28 [facility] [id number]) OT Gross Range of Motion Upper Extremity Range of Motion Assessment Within Functional Limits OT Strength Comments Strength Comments RUE WFL LUE at least 4/5. OT- Coordination Assessment Upper Extremity Finger to Nose Test Left UE Impaired Comments Coordination Comments Pt ataxic movements for LUE, unable to motor plan to grasp the glasses. Right hand decreased fine motor skills for handwriting and in hand manipulation. OT-Muscle Tone Assessment Muscle Tone WNL Yes OT Sensation Assessment Comments Summary Comments Pt states sensation feels the same with both sides. M9 OT- IP Assessment and Plan Start: 12/02/19 16:39 Freq: Status: Active Protocol: Document 12/02/19 14:51 [facility] (Rec: 12/02/19 17:28 [facility] [id number]) OT Summary Assessment and Plan Potential Rehabilitation Potential Good Analytic Complexity at Evaluation Moderate Summary OT Impairments Strength,Balance,Coordination, Functional Cognition, Functional Mobility,Self- Feeding,Grooming,Dressing, Toileting,Bathing,Toilet Transfers,Shower Transfers, Activity Tolerance Progress Towards Goals Slow Progress due to Medical Issues,Slow Progress due to Activity Tolerance,Slow Progress due to Cognition Assessment Summary Pt MOD complexity due to CVA and now having cognitive deficits scoring 13/30 on the SLUMS , difficulty with short term memory, comprehension, problem solving, and attentions span. Pt ataxic with LUE and both hand decreased coordination left>>> right. Pt now needing two person assist for all ADL and functional mobility needs. Pt per having 3 falls in the past month and now too great of care for to assist at home. Prior pt was independent with all ADl needs . Pt will benefit from skilled rehab. Goals Self-Feeding Goal Independent Grooming Goal Independent Dressing Goal Independent Toileting Goal Independent Bathing Goal Independent Toilet Transfer Goal Independent Shower Transfer Goal Independent Patient/Caregiver Education Goal Caregiver Independent Assisting Patient Days to Meet Goals 30 Frequency of Treatment Frequency Of Treatment Once a Day Treatment Plan OT Treatment Plan ADL Training,Functional Cognition Training,Functional Mobility,Patient/Family Education,Discharge Planning Other Treatment Recommendations and Next Self -feeding and grooming Treatment Focus while sitting. Discharge Recommendations OT Discharge Recommendations SNF Rehab Transportation Needs at Discharge Wheelchair/Cabulance
--- NOTE | 2019-12-02 15:48 | DIET.PN ---
Dietary Progress Note Assessment: Ms. Farah is a 79 yof with a history significant for diabetes type 2 with hyperglycemia hypertension, generalized anxiety disorder with panic attacks, melanoma, and neuropathy who was brought into the ER after having a seizure. She has hx of ETOH use of 3+ drinks per day. HT: 163.83cm WT: 64kg BMI: 23.8 Labs: glucose: 68, 155 MNA: 14 [place]cho: 17 Nutrition Diagnosis: altered nutrition related lab values r/t impaired glucose metabolism, DX diabetes aeb inconsistent carb intake, ETOH abuse. Interventions: 1. Provided information on carbohydrate counting and importance of consistent carbohydrate intake.? 2. Provided information on sources of carbohydrate. 3. Provided handouts on meal planning techniques to control blood sugar. 4. Provided information on [facility] diabetes education program and this RD's contact information. 5. Will order ONS glucerna if PO's <70%. Diet Order: CCD EER: 1600 alfa @ 30 alfa/kg IBW (weight maintenance); 67-73 g pro Monitoring/Evaluations: weight, PO's, need for ONS glucerna, recommend referral to diabetes program.
--- NOTE | 2019-12-02 16:22 | SLP.IPNOTE ---
Order received for speech/swallow evaluation. Nursing reported that pt passed swallow screen. Nursing also reported slurring an facial droop. PT is intelligible. Recommend monitor pt and if there is a significant change in her status, to notify speech as indicated
[2019-12-02] MEDS: MELATONIN 3 MG TABLET 6 MG PO (20:14)
[2019-12-02] MEDS: ATORVASTATIN 20 MG TABLET 80 MG PO (20:14)
[2019-12-03] VITALS (7 sets, daily range): BP systolic 125–153; BP diastolic 55–88; PULSE 60–86; RESP 14–18; TEMP 36.1–37.1; O2SAT 97–100
--- NOTE | 2019-12-03 01:36 | PC.NURSE ---
Racing Driver Note: 2350: Awake, getting up out of bed. IV catheter found on her bed, dressing pulled off, and catheter intact. Shaila care given and clean brief on. Vital signs stable. Snack given.
[2019-12-03 09:39] LABS: Add Manual Diff / Slide Review NO; Basophils Absolute Auto 100 /uL (0-100); Basophils Percent Auto 0.8 % (0-2); Eosinophils Absolute Auto 200 /uL (0-450); Eosinophils Percent Auto 1.6 % (2-4); Hematocrit 25.8 % (36-46); Hemoglobin 8.9 g/dL (12.0-16.0); Lymphocytes Absolute Auto 1500 /uL (1100-4500); Lymphocytes Percent Auto 13.9 % (25-40); Mean Corpuscular HGB Conc 34.4 % (30-36); Mean Corpuscular Hemoglobin 32.1 PG (26-34); Mean Corpuscular Volume 93.3 fL (80-100); Monocytes Absolute Auto 600 /uL (0-900); Monocytes Percent Auto 5.1 % (3-14); Neutrophils Absolute Auto 8500 /uL (1500-7000); Neutrophils Percent Auto 78.6 % (50-75); Platelet Count 249 X10^3/uL (150-400); Red Blood Cell Count 2.76 X10^6/uL (4.0-5.2); Red Cell Distribution Width 13.6 % (11.6-14.8); White Blood Cell Count 10.9 X10^3/uL (4.5-11.0)
[2019-12-03] MEDS: FOLIC ACID 1 MG TABLET PO (09:50)
[2019-12-03] MEDS: CLOPIDOGREL 75 MG TABLET PO (09:51)
[2019-12-03] MEDS: levETIRAcetam 250 MG TABLET 500 MG PO ×2 (09:51→21:06)
[2019-12-03] MEDS: THIAMINE 100 MG TABLET PO (09:51)
[2019-12-03] MEDS: lisinopriL 10 MG TABLET 30 MG PO (09:51)
[2019-12-03] MEDS: LORazepam 0.5 MG TABLET PO ×3 (09:51→21:06)
[2019-12-03] MEDS: MULTIVITAMIN 1 TABLET 1 TAB PO (09:51)
[2019-12-03] MEDS: INSULIN DETEMIR 100 UNIT/ML INSULN.PEN 34 UNIT SUBCUT (09:55)
[2019-12-03] MEDS: INSULIN ASPART 100 UNIT/ML INSULN PEN SUBCUT ×4 (09:56→21:07)
[2019-12-03] MEDS: PROPRANOLOL 10 MG TABLET 20 MG PO ×2 (09:57→21:08)
--- NOTE | 2019-12-03 11:59 | PT.IPTN ---
Current Diagnoses Unspecified convulsions (11/30/19) Physical Therapy Treatment Note M2 PT-IP Current Condition Start: 12/02/19 15:47 Freq: NEEDED Status: Active Protocol: Document 12/02/19 14:50 [facility] (Rec: 12/02/19 16:18 [facility] [id number]) Physical Therapy Current Condition Current Condition Evaluation Date 12/02/19 Treatment Diagnosis CVA; difficulty in walking Onset Date 11/30/2019 Precautions Other Precautions falls, seizure M3 PT-IP Subjective Start: 12/02/19 15:47 Freq: NEEDED Status: Active Protocol: Document 12/03/19 11:59 [facility] (Rec: 12/03/19 15:26 [facility] [id number]) Subjective Physical Therapy Visit Type Type Treatment Note Visit Start Time 11:59 Visit Stop Time 12:22 Total Visit Minutes 23 Number of CREDIT CARD SPECIALIST Visits 1 Physical Therapy Visit Comments Patient Comments agreeable to do PT Therapy Pain Assessment Pain Present Pain Present Denied Pain M4 PT-IP Mobility and Gait Start: 12/02/19 15:47 Freq: NEEDED Status: Active Protocol: Document 12/03/19 11:59 [facility] (Rec: 12/03/19 15:26 [facility] [id number]) PT-Bed Mobility Assessment Supine to Sit Supine to Sit Minimal Assistance,2 Person Assistance PT-Transfer Assessment Sit to and From Stand Sit to and from Stand Minimal Assistance,1 Person Assistance,Use of Upper Extremities Equipment Transfer Assistive Device Gait Belt,Front Wheeled Walker Transfers Transfer Destination Chair Transfer Technique ambulated using FWW Transfer Ability Level of Assist Minimal Assistance,2 Person Assistance,Use of Upper Extremities Comments Mobility Comments Pt required Min A x2 to get to EOB, pt then stood with FWW/ Min A to stand. Pt required cues to place left hand properly on walker but was able to manage walker during transfer and gait training. Pt then stood again from chair Min A and ambulated in room ~ 15ft with chair follow requiring Min A. Pt sat in chair after 15ft and was left in chair with OT in room. Gait Assessment Gait Gait Assistance Required: Minimum Assistance,1 Person Assist Distance (Feet) 15 Assistive Devices Assistive Device Gait Belt,Front Wheeled Walker Gait Deviations General Gait Pattern Ataxic,Decreased Stride Length ,Decreased Feet Clearance,Step -to Gait Factors Limiting Gait Function Factors Limiting Gait Function Decreased Activity Tolerance, Decreased Sensation,Decreased Strength,Difficulty Following Directions,Incoordination, Limited Range of Motion,Poor Balance,Poor Safety Awareness Comments Gait Comments Pt ambulated ~15ft with Min A and chair follow, pt recalled cues to take larger steps. M5 PT-IP Objective Assessments Start: 12/02/19 15:47 Freq: NEEDED Status: Active Protocol: Document 12/02/19 14:50 [facility] (Rec: 12/02/19 16:18 [facility] [id number]) Orientation Orientation/Cognition Level of Alertness Confusional State Orientation Name Safety Awareness Decreased Safety Awareness Memory Description Short Term Impaired,Behavioral Assistant Impaired Gross Range of Motion Lower Extremity ROM Assessment Within Functional Limits Strength Lower Extremity Strength Assessment Bilaterally Impaired Comments Strength Comments RLE: 4-/5 LLE: 3+/5 Coordination Assessment Gross Coordination Gross Coordination Impaired Sensation Assessment Sensation Light Touch Impaired Proprioception (Position) Impaired Sensation Description Numbness Comments Sensation Comments BLE decrease sensation M6 PT-IP Treatment Start: 12/02/19 15:47 Freq: NEEDED Status: Active Protocol: Document 12/03/19 11:59 [facility] (Rec: 12/03/19 15:26 [facility] [id number]) Physical Therapy Treatment Exercises Exercises Seated Knee Flexion/Extension Education Education Provided Safety Other Treatments Other Treatment Performed seated marches. M7 PT-IP Assessment and Plan Start: 12/02/19 15:47 Freq: NEEDED Status: Active Protocol: Document 12/03/19 11:59 [facility] (Rec: 12/03/19 15:26 [facility] [id number]) PT Summary Assessment and Plan Summary Assessment Summary Pt improved with all mobility requiring Min A for bed mobility and was able to ambulate with Min A and chair follow. Pt was able to perform seated marches and knee flx/ ext. PT will benefit from SNF rehab to improve strength and function Goals Bed Mobility Goal Standby Assistance Transfer Goal Minimal Assistance,Front Wheeled Walker Gait Goal Minimal Assistance,Front Wheel Walker Gait Distance 50 Days to Meet Goals 5 Frequency of Treatment Frequency Of Treatment Twice a Day Treatment Plan Physical Therapy Treatment Plan Bed Mobility Training,Transfer Training,Gait Training, Therapeutic Exercise,Balance Retraining,Discharge Planning, Hot or Cold Pack,Neuromuscular Re-ed,Coordination Retraining ,Manual Therapy Other Recommendations and Next Treatment transfers, ambulation Focus Recommendations To Nursing Amount of Assist Needed 2 Person Assist Discharge Recommendations PT Discharge Recommendations SNF Rehab Transportation Needs at Discharge Wheelchair/Cabulance
[2019-12-03] MEDS: PANTOPRAZOLE 40 MG TABLET PO ×2 (12:27→21:09)
--- NOTE | 2019-12-03 12:38 | OT.IP.TRT ---
Current Diagnoses Unspecified convulsions (11/30/19) Occupational Therapy Treatment Note M2 OT-IP Current Condition Start: 12/02/19 16:39 Freq: Status: Active Protocol: Document 12/02/19 14:51 [facility] (Rec: 12/02/19 17:28 [facility] [id number]) Occupational Therapy Current Condition Current Condition Evaluation Date 12/02/19 Treatment Diagnosis CVA Diagnosis Onset Date 11/30/19 Weight Bearing Status Weight Bearing Status Weight Bear as Tolerated M3 OT- IP Subjective and Pain Start: 12/02/19 16:39 Freq: Status: Active Protocol: Document 12/03/19 16:40 [facility] (Rec: 12/03/19 16:48 [facility] [id number]) OT- Subjective Occupational Therapy Visit Type Type Progress Note Visit Start Time 12:05 Visit Stop Time 12:38 Total Visit Minutes 33 Notes Partial co-treat with P.T. Occupational Therapy Visit Comments Patient Comments I want to take a shower soon. OT Pain Assessment Pain When Pain Assessed At Rest Pain Present Pain Present Denied Pain M4 OT- IP ADL's Start: 12/02/19 16:39 Freq: Status: Active Protocol: Document 12/03/19 16:40 [facility] (Rec: 12/03/19 16:48 [facility] [id number]) OT [id number]-Sxubzru General Evaluation Self-Feeding Ability Minimal Assistance Areas Needing Assistance Cutting Food Devices Self-Feeding Devices Adjustable Height Table Comments OT Self-Feeding Comments Pt with weighted and built up handles for silverware. Pt needed min a hand over hand for cutting food. Pt appears to have some left neglect as she repeatedly put her left hand in her mashed potatos without noticing even after multiple times of cleaning it off for her. OT ADL-Grooming General Evaluation Grooming Ability Moderate Assistance Areas Needing Assistance Combing/Brushing Hair OT ADL-Dressing General Eval Lower Body Dressing Ability Total Assistance Areas Needing Assistance Socks OT ADL-Toileting General Evaluation Toileting Ability Moderate Assistance Areas Needing Assistance Manage Clothing Devices Toileting Assistive Devices Commode Comments OT Toileting Comments Pt able to perform pericare seated on BSC. Pt states pain when trying to hold urine. OT ADL-Bathing Comments OT Bathing Comments Not performed in this session. M5 OT- IP IADL's Start: 12/02/19 16:39 Freq: Status: Active Protocol: Document 12/02/19 14:51 [facility] (Rec: 12/02/19 17:28 [facility] [id number]) OT-Instrumental Activities of Daily Living Home Safety Awareness Awareness of Need for Assistance at Home Decreased Awareness Ability to Problem Solve Emergency Unable to Problem Solve Situations Home Safety Comments Pt not aware what to do if toilet flooding at home or states would open a door if starnger present. Pt constantly looking at her when trying to answer safety questions. Medication Management Medication Management Caregiver Administers Money Management Money Management Caregiver Provides Assistance Meal Preparation Meal Preparation Caregiver Provides Assist Lead Esthetician Lead Esthetician Caregiver Provides Assist Driving Driving Caregiver Provides Assist M6 OT- IP Functional Cognition Start: 12/02/19 16:39 Freq: Status: Active Protocol: Document 12/03/19 16:40 [facility] (Rec: 12/03/19 16:48 R [id number]) Cognitive Factors Limiting Selfcare Function Cognitive Ability Level of Alertness Alert Patient Orientation Name,Age,Birthday,Month,Date, Year,Day of Week,Place, Situation Attention Span Ability Capable of Focused Attention Ability to Follow Commands Able to Follow One Step Commands OT- Vision and Hearing OT- Hearing Assessment OT- Hearing Assessment WFL OT- Vision Assessment Visual Acuity Glasses All The Time Vision Assessment Comments Pt appears to have some left neglect and possible prepherial vision loss, most notably on the L but also noted with activities on the right. M7 OT- IP Mobility and Balance Start: 12/02/19 16:39 Freq: Status: Active Protocol: Document 12/03/19 16:40 [facility] (Rec: 12/03/19 16:48 [facility] [id number]) OT- Bed Mobility Assessment Rolling Type of Rolling Roll to Right Level of Assistance Minimal Assistance,2 Person Assistance Supine to Sit Supine to Sit Assist Minimal Assistance,2 Person Assistance,Bedrails Scooting Scooting to Edge of Bed Standby Assistance OT-Transfer Assessment Sit to and From Stand Sit to and from Stand Minimal Assistance Transfers Transfer Ability Minimal Assistance Technique Transfer Destination Bed,Bedside Commode,Chair Transfer Technique Stand Step Pivot Devices Transfer Assistive Devices Gait Belt,Front Wheeled Walker Comments Mobility Comments see pt note for more specifics with mobility. OT- Balance Assessment Sitting Balance and Reactions Static Sitting Balance Ability Good Dynamic Sitting Balance Ability Fair M8 OT- IP Objective Assessments Start: 12/02/19 16:39 Freq: Status: Active Protocol: Document 12/02/19 14:51 [facility] (Rec: 12/02/19 17:28 [facility] [id number]) OT Gross Range of Motion Upper Extremity Range of Motion Assessment Within Functional Limits OT Strength Comments Strength Comments RUE WFL LUE at least 4/5. OT- Coordination Assessment Upper Extremity Finger to Nose Test Left UE Impaired Comments Coordination Comments Pt ataxic movements for LUE, unable to hold motor plan to grasp the glasses. Right hand decreased fine motor skills for handwriting and in hand manipulation. OT-Muscle Tone Assessment Muscle Tone WNL Yes OT Sensation Assessment Comments Summary Comments Pt states sensation feels the same with both sides. M9 OT- IP Assessment and Plan Start: 12/02/19 16:39 Freq: Status: Active Protocol: Document 12/03/19 16:40 [facility] (Rec: 12/03/19 16:48 [facility] [id number]) OT Summary Assessment and Plan Potential Rehabilitation Potential Good Analytic Complexity at Evaluation Moderate Summary OT Impairments Strength,Balance,Coordination, Functional Cognition, Functional Mobility,Self- Feeding,Grooming,Dressing, Toileting,Bathing,Toilet Transfers,Shower Transfers, Activity Tolerance Progress Towards Goals Slow Progress due to Medical Issues,Slow Progress due to Activity Tolerance,Slow Progress due to Cognition Assessment Summary Pt is progressing with ADLs, functional mobility and endurance but still demonstrates deficits to cognition and ability to care for herself. Recommend d/c to SNF. Recommend continued OT services to address deficits. Goals Self-Feeding Goal Independent Grooming Goal Independent Dressing Goal Independent Toileting Goal Independent Bathing Goal Independent Toilet Transfer Goal Independent Shower Transfer Goal Independent Patient/Caregiver Education Goal Caregiver Independent Assisting Patient Days to Meet Goals 29 Frequency of Treatment Frequency Of Treatment Once a Day Treatment Plan OT Treatment Plan ADL Training,Functional Cognition Training,Functional Mobility,Patient/Family Education,Discharge Planning Other Treatment Recommendations and Next Self -feeding and grooming Treatment Focus while sitting. Discharge Recommendations OT Discharge Recommendations SNF Rehab Transportation Needs at Discharge Private Vehicle
--- NOTE | 2019-12-03 14:07 | CM.DPC ---
Addendum entered by Ely Fritz R.N. 12/03/19 15:44: Prema at [facility] stated that she will have transport available for patient tomorrow and when we had D/C plan. [facility] morning she will get Transport set up and will be doing patient admission tomorrow. Ely Fritz RN Original Note: DCP continued: EMR reviewed: CM/Rn called [facility] twice today and left a voice message each time. still have not heard back from them. CM/RN contacted [facility] on and had them review. Prema with [facility] called back and stated that they will accept the patient at D/C. CM/RN let Prema know that it will most likely be tomorrow 12/04/[address] Chavez. Prema stated understanding and is working on transport to bring patient in tomorrow. Patient and patients updated about SNF. Ely Fritz RN
--- NOTE | 2019-12-03 15:40 | PM.PN.1 ---
Subjective Subjective Date Patient Seen: 12/03/19 Time Patient Seen: 15:41 Interval history: Ms. Amanda Farah is a 79-year-old female with a history significant for diabetes type 2 with hyperglycemia hypertension, generalized anxiety disorder with panic attacks, melanoma, and neuropathy who was brought into the ER by EMS after having a seizure at home and another with EMS. Etiology was thought to be secondary to alcohol withdrawal, with further possibilities including benzodiazepine withdrawal, possible CVA, or primary seizure disorder. Brain MRI performed did show an acute/subacute infarct in her right frontal lobe, as well as diffuse atrophy. She also had an acute anemia, however the source is unclear, but has since resolved after starting a PPI. She remains intermittently confused, and profoundly frustrated with still being in the hospital. She is pending transfer to halfway possibly tomorrow. Today she does not complain of any chest pain, shortness of breath, abdominal pain, nausea, vomiting, fever, chills. Exam Vital Signs (past 8 hours): - 12/03/19 08:00 12/03/19 09:45 12/03/19 12:00 Temperature 98.8 F 97.9 F Pulse Rate 76 74 Respiratory Rate 18 14 Blood Pressure 130/88 127/67 Pulse Oximetry 97 97 97 Oxygen Delivery Method Room Air Oxygen Flow Rate 0 Narrative Exam Narrative: GENERAL APPEARANCE: well developed, pale elderly female in no acute distress. HEENT: Atraumatic, pupils are sluggish, PERRLA, no ptosis, conjunctiva clear sclera anicteric, EOMs intact without nystagmus, no sinus tenderness to percussion, no rhinorrhea, mucous membranes are moist and pale without lesions or exudate. NECK/THYROID: neck supple, no JVD, bilateral carotid bruit, no thyromegaly, trachea midline. LYMPH NODES: no cervical or supraclavicular lymphadenopathy. SKIN: Pale, warm and dry, no visible lesions, rashes, ulcerations or petechiae. HEART: regular rate and rhythm, S1-S2, 1/6 systolic murmur, no rubs or gallops, brisk capillary refill, 2+ dorsalis pedis pulses, no edema LUNGS: clear to auscultation bilaterally, no coarseness crackles or wheezing, no cough present CHEST: Tachypneic with symmetrical movement, no accessory muscle use, good tidal volume. ABDOMEN: Soft, mild distention, attempting to percussion, no abdominal tenderness, no guarding or peritoneal signs, no organomegaly, no flank or suprapubic tenderness, active bowel tones. EXTREMITIES: moves all extremities, strength is 5/5 and symmetrical, no deformities or joint effusions. NEUROLOGIC: AAO x3 (but waxes and wanes throughout the day), difficulty responding to questions occasional inappropriate responses to questions, word-finding difficulty, cranial nerves II-XII grossly intact, decrease a sensation bilateral feet and hands, slow and inaccurate finger to nose testing. PSYCH: Fair eye contact, follows commands, difficulty concentrating, mildly anxious Objective Labs Result Diagrams: 12/03/19 09:31 12/02/19 09:36 Labs: Laboratory Results - last 24 hr 12/03/19 09:31 WBC 10.9 RBC 2.76 L Hgb 8.9 L Hct 25.8 L MCV 93.3 MCH 32.1 MCHC 34.4 RDW 13.6 Plt Count 249 Neut % (Auto) 78.6 H Lymph % (Auto) 13.9 L Guthrie % (Auto) 5.1 Eos % (Auto) 1.6 L Baso % (Auto) 0.8 Neut # (Auto) 8500 H Lymph # (Auto) 1500 Guthrie # (Auto) 600 Eos # (Auto) 200 Baso # (Auto) 100 Assessment & Plan Assessment & Plan narrative: Amanda Farah is a 79-year-old female with a history significant for diabetes type 2 with hyperglycemia hypertension, generalized anxiety disorder with panic attacks, melanoma, and neuropathy who was admitted after having 2 witnessed seizures, she was found to have an acute/subacute infarct on her brain MRI and his been started on seizure prophylaxis. She further developed an acute anemia, possibly secondary to an upper GI bleed, which is now improving. She has not had any seizure episodes while admitted. Physical therapy is recommending discharge to halfway, which is currently pending and could be tomorrow. 1. 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 -The patient received Versed in the field and is positive for benzodiazepines on the urine tox screen likely from this medication. -Patient is alcoholic consuming 3 vodka daily for the last month and before that wine. The patient has had only 1 drink today and consideration was given to alcohol withdrawal. For the patient's the patient is not previously exhibited withdrawal symptoms. The other possibility is for benzodiazepine withdrawal. The patient stated to me that she had not taken this for many weeks now. -Patient is started on [facility] protocol with seizure precautions, lorazepam 2 mg IV as needed seizure and lorazepam p.o./IV per [facility] protocol. -Received an IV banana bag with thiamine and folate daily. -On head CT severe periventricular deep white matter chronic small-vessel changes noted as well as small chronic bilateral thalamic lacunar infarct. Consideration was given to stroke considering patient's continued level of neurological impairment not at baseline per the patient's . MRI ultimately did show an acute/subacute infarct in her right frontal lobe as well as high-grade stenosis in her right internal carotid artery. -[facility] neurology was consulted who recommended starting Keppra 500 mg twice daily for seizure prophylaxis and follow-up with an outpatient neurologist. -will increase Lipitor to 80 mg, and switch from aspirin to Plavix given anemia is now stable. 2. Acute anemia, normochromic normocytic, present on admission, active. -Unknown etiology, patient denies hematemesis and hematochezia. She takes daily aspirin 81 mg and Pepto-Bismol frequently and reports stools are always black. -Admission labs finds a hemoglobin of 8.0 and hematocrit 23.9, H&H drawn on 11/26 2019, hemoglobin was 14.4 and hematocrit of 41.4. -still awaiting stool guaiac -hemoglobin trended down to 6.9, patient was transfused 1 unit PRBC, with appropriate response to 7.9. She improved to 8.9 this morning, can stop trending at this time. -CT C/A/P w/o contrast did not reveal a hematoma. -reticulocyte count 3.1%, LDH was not elevated and haptoglobin is still pending. Iron profile was unremarkable. -patient was started on Protonix IV PPI b.i.d. after initial dose of 80 mg for possible, but unconfirmed, upper GI bleed. She will now be transitioned to oral medications as patient has been pulling out IVs. -goal Hg >7, transfuse if lower. 3. Chronic kidney disease stage III, present on admission, active -Creatinine on admission is 1.46, and was found to be 1.2 yesterday, increase in creatinine likely related to seizures. Improved to near baseline at 1.11. -no need to continue trending. 4. Diabetes type 2, insulin-dependent with hyperglycemia, present on admission, active -Blood sugar on admission labs is 427, unknown if patient received dextrose from EMS. -Last hemoglobin A1c obtained on 10/25/2019 was 8.4. -Fingerstick blood sugars a.c. and HS with correctional insulin medium range. -Continue patient's home regimen of detemir insulin 34 units in the morning and 26 units at night. -will follow-up patient's fingerstick blood sugars and treat as indicated. 5. Elevated serum troponin, unclear significance, present on admission, resolved -Troponin is found to be 0.039 on admission labs, this ultimately downtrended. -Troponin elevation may be related to presenting seizures. No ischemic changes on EKG. 6. Hyponatremia, present on admission, resolved -Patient has had hyponatremia since labs on 11/24 when sodium level was 127, sodium level today is improved at 138. IV fluids have been discontinued. 7. Generalized anxiety disorder with panic attacks, present on admission, active. -The patient's anxiety is exacerbated by current confusional state. -Patient with a long history of anxiety for which she takes hydroxyzine 25 mg 2-3 times daily. -The patient is seen in the ER on 11/26/2019 for anxiety and received lorazepam. -Will continue patient's home regimen of propranolol 20 mg twice daily, sertraline was discontinued given the possibility that it can lower seizure threshold. She will continue chronic benzodiazepine therapy at this time. This should be attempted to taper off slowly given seizures. -recommend outpatient follow up with psychiatry or geriatric psychiatry if able. Her brain MRI shows significant atrophy and SLUMS score with OT was 13/30 indicating cognitive impairment. 8. Alcohol abuse, present on admission, active. -New the patient nor her relate previous withdrawal symptoms or withdrawal seizures. -CIWA protocol with lorazepam as noted above. 9. Cognitive impairment, likely chronic, present on admission - MRI as noted above with significant atrophy. Possibly secondary to vascular dementia or alcoholism. VTE prophylaxis: Bilateral compression hose, will hold off on chemical prophylaxis given possible GI bleeding, however patient is on Plavix for her acute CVA. Diet: carb controlled diet Dispo: Plan for discharge urge to halfway based on physical therapy evaluation. Per care management, looking at possible discharge tomorrow to [facility] if transportation can be arranged, for which the patient is medically stable. Quality VTE Deep Vein Thrombosis/Pulmonary Embolism Present on Admission: No
--- NOTE | 2019-12-03 16:05 | PT-IP ANOTE ---
Attempted to tx pt and pt was unable stay awake. Will check back with pt in the morning, RN informed.
[2019-12-03] MEDS: ATORVASTATIN 20 MG TABLET 80 MG PO (21:06)
[2019-12-03] MEDS: MELATONIN 3 MG TABLET 6 MG PO (21:06)
[2019-12-04] VITALS (7 sets, daily range): BP systolic 115–146; BP diastolic 50–60; PULSE 58–69; RESP 16–17; TEMP 36.1–36.4; O2SAT 97–99
[2019-12-04] MEDS: LORazepam 1 MG TABLET 2 MG PO (02:12)
[2019-12-04] MEDS: PANTOPRAZOLE 40 MG TABLET PO (06:25)
--- NOTE | 2019-12-04 07:02 | PC.NURSE ---
Patient had low UOP of 50 ml. bladder scanned for 423 ml. Attempted BSC per patient wishes, unable to void. Straight cathed for 375ml. Patient tolerated well.
[2019-12-04] MEDS: lisinopriL 10 MG TABLET 30 MG PO (10:02)
[2019-12-04] MEDS: MULTIVITAMIN 1 TABLET 1 TAB PO (10:02)
[2019-12-04] MEDS: FOLIC ACID 1 MG TABLET PO (10:02)
[2019-12-04] MEDS: levETIRAcetam 250 MG TABLET 500 MG PO (10:02)
[2019-12-04] MEDS: PROPRANOLOL 10 MG TABLET 20 MG PO (10:03)
[2019-12-04] MEDS: CLOPIDOGREL 75 MG TABLET PO (10:03)
[2019-12-04] MEDS: INSULIN DETEMIR 100 UNIT/ML INSULN.PEN 34 UNIT SUBCUT (10:03)
[2019-12-04] MEDS: INSULIN ASPART 100 UNIT/ML INSULN PEN SUBCUT ×2 (10:03→12:57)
[2019-12-04] MEDS: LORazepam 0.5 MG TABLET PO ×2 (10:03→14:03)
--- NOTE | 2019-12-04 11:38 | CM.DPC ---
DCP/continued: Reviewed chart. Spoke with provider whom reports that patient medically stable for discharge to SNF today. Reviewed notes and hand off indicates that patient has been accepted at [facility]. Placed call to [facility] and spoke with Gabrielle (as instructed) she reports that they have not confirmed acceptance yet? She needs to get approval from Distribution Engineer and would like updated progress notes faxed to facility. [employer] faxed requested information and notified Gabrielle that CM note indicates that patient accepted by Prema yesterday for admit today. Paloma reports that she will speak with Distribution Engineer and call ECONOMIC GEOGRAPHER back. [facility] aware that pateint medically cleared for d/c today. P: Pending [facility]
--- NOTE | 2019-12-04 11:45 | PT.IPTN ---
Current Diagnoses Unspecified convulsions (11/30/19) Physical Therapy Treatment Note M2 PT-IP Current Condition Start: 12/02/19 15:47 Freq: NEEDED Status: Active Protocol: Document 12/02/19 14:50 AB (Rec: 12/02/19 16:18 AB [id number]) Physical Therapy Current Condition Current Condition Evaluation Date 12/02/19 Treatment Diagnosis CVA; difficulty in walking Onset Date 11/30/2019 Precautions Other Precautions falls, seizure M3 PT-IP Subjective Start: 12/02/19 15:47 Freq: NEEDED Status: Active Protocol: Document 12/04/19 11:45 CLB (Rec: 12/04/19 14:43 CLB [id number]) Subjective Physical Therapy Visit Type Type Treatment Note Visit Start Time 11:45 Visit Stop Time 12:03 Total Visit Minutes 18 Number of IT ACCOUNT MANAGER Visits 2 Physical Therapy Visit Comments Patient Comments agreeable to ambulate and sit in chair for lunch. Therapy Pain Assessment Pain Present Pain Present Denied Pain M4 PT-IP Mobility and Gait Start: 12/02/19 15:47 Freq: NEEDED Status: Active Protocol: Document 12/04/19 11:45 CLB (Rec: 12/04/19 14:43 CLB [id number]) PT-Bed Mobility Assessment Supine to Sit Supine to Sit Minimal Assistance,1 Person Assistance Scooting Scooting to Edge of Bed Standby Assistance PT-Transfer Assessment Sit to and From Stand Sit to and from Stand Minimal Assistance,1 Person Assistance,Use of Upper Extremities Equipment Transfer Assistive Device Gait Belt,Front Wheeled Walker Transfers Transfer Destination Chair Transfer Technique ambulated using FWW Transfer Ability Level of Assist Minimal Assistance,1 Person Assistance,Use of Upper Extremities Comments Mobility Comments Pt required Min A supine-sit with cues for pt to be aware of her LUE. Pt able to reach with LUE after cues to reach for bed cane. Pt able to scoot to EOB with use of bed cane. Pt required Min A for sit<> stand with tactile cues for positioning LUE on walker. Pt ambulated ~15 ft in room with Mod A and cues to stay close to walker and cues to keep LLE inside walker as well as cues to advance LLE. Pt able to perform seated knee flx/ext with cues for slow controlled movements and seated marches. Pt left in chair with all needs within reach and chair alarm on. Gait Assessment Gait Gait Assistance Required: Moderate Assistance,1 Person Assist Distance (Feet) 15 Assistive Devices Assistive Device Gait Belt,Front Wheeled Walker Gait Deviations General Gait Pattern Ataxic,Decreased Stride Length ,Decreased Feet Clearance,Step -to Gait Factors Limiting Gait Function Factors Limiting Gait Function Decreased Activity Tolerance, Decreased Sensation,Decreased Strength,Difficulty Following Directions,Incoordination, Limited Range of Motion,Poor Balance,Poor Safety Awareness Comments Gait Comments see mobility comments M5 PT-IP Objective Assessments Start: 12/02/19 15:47 Freq: NEEDED Status: Active Protocol: Document 12/02/19 14:50 AB (Rec: 12/02/19 16:18 AB [id number]) Orientation Orientation/Cognition Level of Alertness Confusional State Orientation Name Safety Awareness Decreased Safety Awareness Memory Description Short Term Impaired,Skilled Nursing Impaired Gross Range of Motion Lower Extremity ROM Assessment Within Functional Limits Strength Lower Extremity Strength Assessment Bilaterally Impaired Comments Strength Comments RLE: 4-/5 LLE: 3+/5 Coordination Assessment Gross Coordination Gross Coordination Impaired Sensation Assessment Sensation Light Touch Impaired Proprioception (Position) Impaired Sensation Description Numbness Comments Sensation Comments BLE decrease sensation M6 PT-IP Treatment Start: 12/02/19 15:47 Freq: NEEDED Status: Active Protocol: Document 12/04/19 11:45 CLB (Rec: 12/04/19 14:43 CLB [id number]) Physical Therapy Treatment Exercises Exercises Seated Knee Flexion/Extension Other Treatments Other Treatment Performed seated marches. M7 PT-IP Assessment and Plan Start: 12/02/19 15:47 Freq: NEEDED Status: Active Protocol: Document 12/04/19 11:45 CLB (Rec: 12/04/19 14:43 CLB [id number]) PT Summary Assessment and Plan Potential Rehabilitation Potential Fair Status of Condition at Evaluation Evolving Summary Impairments Pain,ROM,Strength,Balance, Coordination,Sensation,Tone, Cognition,Bed Mobility, Transfers,Gait,Activity Tolerance Assessment Summary Pt required Min A to get OOB and sit-stand then required increased assist with gait. Pt had difficulty advancing LLE and required cues to make sure LLE remained inside walker during gait. PT will benefit from SNF rehab to improve strength and function. Goals Bed Mobility Goal Standby Assistance Transfer Goal Minimal Assistance,Front Wheeled Walker Gait Goal Minimal Assistance,Front Wheel Walker Gait Distance 50 Days to Meet Goals 5 Frequency of Treatment Frequency Of Treatment Twice a Day Treatment Plan Physical Therapy Treatment Plan Bed Mobility Training,Transfer Training,Gait Training, Therapeutic Exercise,Balance Retraining,Discharge Planning, Hot or Cold Pack,Neuromuscular Re-ed,Coordination Retraining ,Manual Therapy Other Recommendations and Next Treatment transfers, ambulation Focus Recommendations To Nursing Amount of Assist Needed 1 Person Assist Discharge Recommendations PT Discharge Recommendations SNF Rehab Transportation Needs at Discharge Wheelchair/Cabulance
--- NOTE | 2019-12-04 13:40 | P.DS_ITS ---
History of Present Illness History of Present Illness Date Patient Seen: 12/04/19 Time Patient Seen: 14:09 Chief complaint: seizure Narrative: As per HAYLEE Israel: Ms. Amanda Farah is a 79-year-old female with a history significant for diabetes type 2 with hyperglycemia hypertension, generalized anxiety disorder with panic attacks, IBS melanoma, and neuropathy who was brought into the ER by EMS after having seizure home and a 2nd 1 paramedics. The patient had a witnessed seizure approximately 1 minute duration with tonic clonic activity witnessed by the patient's at home. He summoned EMS and the patient regained consciousness and was responsive however remain postictal at which time she had a 2nd tonic-clonic seizure. Paramedics administered Versed with cessation of seizure activity. Patient does have a history alcoholism taking 3 shots of vodka daily and has had 1 shot today. Before that she would drink wine daily. The patient does report falling frequently with her last fall this morning. She reports that she does frequently strike her head. She denies neck or back pain. She typically uses a walker at to ambulate. The patient is a poor historian and her is at bedside providing additional information. The patient has had no recent complaints of cough or cold fevers or chills. She denies complaints of chest pain or palpitations and has had complaints of shortness of breath cough or wheezing. She does complain of abdominal bloating stating she needs to move her bowels but has been unable to, her indicates that she passed small bowel movement this morning. Her bowel movements are dark in color however she states she takes Pepto-Bismol regularly. She additionally states that she feels the need to urinate but also states she is unable to. Patient has longstanding history of anxiety disorder was seen on 11/26/2019 in the ER for anxiety a which time she received lorazepam and discharged home. Upon arrival to the ER the patient has a temperature of 97.1?, heart rate of 84, blood pressure 1 7/90, respirations 20 oxygen saturation of 96. A CT of the which is obtained which finds no acute processes, no bleed or mass, moderate volume loss for age, severe periventricular and deep white matter chronic small- vessel changes, small chronic bilateral Frank lacunar infarcts that are stable. On laboratory testing patient is a elevated white count 13.8 with increased neutrophils at 91.2%, hemoglobin 8.0 (14.4 on 11/26/2019), hematocrit of 23.9 (41.4 on 11/26/2019) and platelets of 320. On chemistries patient has hyponatremia at 131, potassium is 4.1. She has a BUN of 59 with a creatinine 1.46 with an EGFR of 34.6. Her nonfasting glucose is 427, it is unknown patient received IV dextrose from EMS. Liver functions within normal range with a bi lirubin of 0.2, AST of 31, ALT 29 and alkaline phosphatase of 81. Troponin is mildly elevated at 0.039 in the setting elevated creatinine clearance. A urine tox is obtained which is positive for try sick let us with the patient on amitriptyline and benzodiazepines with the patient having received Versed in the field. Urinalysis is negative for infection and reveals 1+ glucosuria. Patient is admitted to the hospitalist service for further evaluation of new onset seizures and acute anemia. Discharge Providers Provider Date of admission: 11/30/19 18:31 Discharge Date: 12/04/19 Primary care physician: Jeevan Cummins MD Consults: 11/30/19 20:15 Consult to Discharge Planning Routine Comment: 11/30/19 20:24 Consult to Dietitian, Adult Routine Comment: Reason For Exam: Diabetic with hyperglycemia 12/02/19 10:25 Consult to Physical Therapy Evaluate & Treat Comment: Physician Instructions: Evaluate and Treat 12/02/19 10:26 Consult to Occupational Therapy Evaluate & Treat Comment: Physician Instructions: Evaluate and treat 12/02/19 15:49 Consult to Speech Therapy Evaluate & Treat Comment: Physician Instructions: Evaluate and treat Discharge provider: Atul Chavez DO Summary Hospital Course Discharge Diagnosis: Please see hospital course by problem list below. Hospital Course: Amanda Farah is a 79-year-old female with a history significant for diabetes type 2 with hyperglycemia hypertension, generalized anxiety disorder with panic attacks, melanoma, and neuropathy who was admitted after having 2 witnessed seizures, she was found to have an acute/subacute infarct on her brain MRI and his been started on seizure prophylaxis. She further developed an acute anemia, likely secondary to an upper GI bleed, which is now improving. She has not had any seizure episodes while admitted. Physical therapy is recommending discharge to longterm, and patient is stable for discharge today. 1. 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 -The patient received Versed in the field and is positive for benzodiazepines on the urine tox screen likely from this medication. -Patient is alcoholic consuming 3 vodka daily for the last month and before that wine. The patient has had only 1 drink today and consideration was given to alcohol withdrawal. For the patient's the patient is not previously exhibited withdrawal symptoms. The other possibility is for benzodiazepine withdrawal. The patient stated to me that she had not taken this for many weeks now. -Patient is started on [facility] protocol with seizure precautions, lorazepam 2 mg IV as needed seizure and lorazepam p.o./IV per [facility] protocol. -Received an IV banana bag with thiamine and folate daily. -On head CT severe periventricular deep white matter chronic small-vessel changes noted as well as small chronic bilateral thalamic lacunar infarct. Consideration was given to stroke considering patient's continued level of neuro logical impairment not at baseline per the patient's . MRI ultimately did show an acute/subacute infarct in her right frontal lobe as well as high- grade stenosis in her right internal carotid artery. -[facility] neurology was consulted who recommended starting Keppra 500 mg twice daily for seizure prophylaxis and follow-up with an outpatient neurologist. -will increase Lipitor to 80 mg, and recommend switch to Plavix when able likely after outpatient GI follow up as noted below. 2. Acute blood loss anemia, normochromic normocytic, present on admission, active. -Unknown etiology, patient denies hematemesis and hematochezia. She takes daily aspirin 81 mg and Pepto-Bismol frequently and reports stools are always black. -Admission labs finds a hemoglobin of 8.0 and hematocrit 23.9, H&H drawn on 11/26 2019, hemoglobin was 14.4 and hematocrit of 41.4. -Stool guiaic was positive. -hemoglobin trended down to 6.9, patient was transfused 1 unit PRBC, with appropriate response to 7.9. She improved to 8.9 which was stable x3. Plavix will be held upon discharge but she should be referred as soon as possible for outpatient GI follow up for possible EGD/colonoscopy. -CT C/A/P w/o contrast did not reveal a hematoma. -reticulocyte count 3.1%, LDH was not elevated and haptoglobin is still pending. Iron profile was unremarkable. -patient was started on Protonix IV PPI b.i.d. after initial dose of 80 mg for GI bleeding. She will continue on an oral protonix twice daily until GI follow up. 3. Chronic kidney disease stage III, present on admission, active -Creatinine on admission is 1.46. Improved to near baseline at 1.11. 4. Diabetes type 2, insulin-dependent with hyperglycemia, present on admission, active -Blood sugar on admission labs is 427, unknown if patient received dextrose from EMS. -Last hemoglobin A1c obtained on 10/25/2019 was 8.4. -Fingerstick blood sugars a.c. and HS with correctional insulin medium range was provided while inpatient. -Continue patient's home regimen of detemir insulin 34 units in the morning and 26 units at night. 5. Elevated serum troponin, unclear significance, present on admission, resolved -Troponin was found to be 0.039 on admission labs, this ultimately downtrended. -Troponin elevation may be related to presenting seizures. No ischemic changes were noted on EKG. 6. Hyponatremia, present on admission, resolved -Patient has had hyponatremia since labs on 11/24 when sodium level was 127, sodium level today is now within normal limits. IV fluids have been discontinued. 7. Generalized anxiety disorder with panic attacks, present on admission, active. -The patient's anxiety is exacerbated by current confusional state which may be related to underlying cognitive impairment, anemia, and benozodiazepine use. -Patient with a long history of anxiety for which she takes hydroxyzine 25 mg 2- 3 times daily. -The patient is seen in the ER on 11/26/2019 for anxiety and received lorazepam. -Will continue patient's home regimen of propranolol 20 mg twice daily, sertraline was discontinued given the possibility that it can lower seizure threshold. She will continue chronic benzodiazepine therapy at this time. This should be attempted to taper off slowly given seizures. -recommend outpatient follow up with psychiatry or geriatric psychiatry if able. Her brain MRI shows significant atrophy and SLUMS score with OT was 13/30 i ndicating cognitive impairment. 8. Alcohol abuse, present on admission, active. -New the patient nor her relate previous withdrawal symptoms or withdrawal seizures. -[facility] protocol with lorazepam as noted above. 9. Cognitive impairment, likely chronic, present on admission - MRI as noted above with significant atrophy. Possibly secondary to vascular dementia or alcoholism. VTE prophylaxis: Bilateral compression hose, will hold off on chemical prophylaxis given possible GI bleeding, however patient is on Plavix for her acute CVA. Diet: carb controlled diet Dispo: Discharged to [facility]. Status at Discharge Overall status at discharge: patient is progressing back to baseline Time Spent with Patient Time spent: Greater than 30 minutes Exam Vital Signs (past 8 hours): - 12/04/19 08:10 12/04/19 09:55 12/04/19 11:25 Temperature 97.6 F 97.3 F L Pulse Rate 69 66 Respiratory Rate 17 16 Blood Pressure 146/60 H 128/52 L Pulse Oximetry 97 98 98 Oxygen Delivery Method Room Air Oxygen Flow Rate 0 Narrative Exam Narrative: GENERAL APPEARANCE: well developed, pale elderly female in no acute distress. HEENT: Atraumatic, pupils are sluggish, PERRLA, no ptosis, conjunctiva clear sclera anicteric, EOMs intact without nystagmus, no sinus tenderness to percussion, no rhinorrhea, mucous membranes are moist and pale without lesions or exudate. NECK/THYROID: neck supple, no JVD, bilateral carotid bruit, no thyromegaly, trachea midline. LYMPH NODES: no cervical or supraclavicular lymphadenopathy. SKIN: Pale, warm and dry, no visible lesions, rashes, ulcerations or petechiae. HEART: regular rate and rhythm, S1-S2, 1/6 systolic murmur, no rubs or gallops, brisk capillary refill, 2+ dorsalis pedis pulses, no edema LUNGS: clear to auscultation bilaterally, no coarseness crackles or wheezing, no cough present CHEST: Tachypneic with symmetrical movement, no accessory muscle use, good tidal volume. ABDOMEN: Soft, mild distention, attempting to percussion, no abdominal tenderness, no guarding or peritoneal signs, no organomegaly, no flank or suprapubic tenderness, active bowel tones. EXTREMITIES: moves all extremities, strength is 5/5 and symmetrical, no deform ities or joint effusions. NEUROLOGIC: AAO x3 (but waxes and wanes throughout the day), difficulty re sponding to questions occasional inappropriate responses to questions, word- finding difficulty, cranial nerves II-XII grossly intact, decrease a sensation bilateral feet and hands, slow and inaccurate finger to nose testing. PSYCH: Fair eye contact, follows commands, difficulty concentrating, mildly anxious Objective Labs Result Diagrams: 12/03/19 09:31 12/02/19 09:36 Discharge Plan Discharge Plan Patient Disposition: SNF Transfer to: [facility] Discharge comment: Amanda Farah is a 79-year-old female with a history significant for diabetes type 2 with hyperglycemia hypertension, generalized anxiety disorder with panic attacks, melanoma, and neuropathy who was admitted after having 2 witnessed seizures, she was found to have an acut e/subacute infarct on her brain MRI and his been started on seizure prophylaxis. She further developed an acute anemia, likely secondary to an upper GI bleed, which is now improving. She has not had any seizure episodes while admitted. Physical therapy is recommending discharge to longterm, and patient is stable for discharge today. 1. 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 -The patient received Versed in the field and is positive for benzodiazepines on the urine tox screen likely from this medication. -Patient is alcoholic consuming 3 vodka daily for the last month and before that wine. The patient has had only 1 drink today and consideration was given to alcohol withdrawal. For the patient's the patient is not previously exhibited withdrawal symptoms. The other possibility is for benzodiazepine withdrawal. The patient stated to me that she had not taken this for many weeks now. -Patient is started on [facility] protocol with seizure precautions, lorazepam 2 mg IV as needed seizure and lorazepam p.o./IV per [facility] protocol. -Received an IV banana bag with thiamine and folate daily. -On head CT severe periventricular deep white matter chronic small-vessel changes noted as well as small chronic bilateral thalamic lacunar infarct. Consideration was given to stroke considering patient's continued level of neurological impairment not at baseline per the patient's . MRI ultimately did show an acute/subacute infarct in her right frontal lobe as well as high-grade stenosis in her right internal carotid artery. -[facility] neurology was consulted who recommended starting Keppra 500 mg twice daily for seizure prophylaxis and follow-up with an outpatient neurologist. -will increase Lipitor to 80 mg, and recommend switch to Plavix when able likely after outpatient GI follow up as noted below. 2. Acute blood loss anemia, normochromic normocytic, present on admission, active. -Unknown etiology, patient denies hematemesis and hematochezia. She takes daily aspirin 81 mg and Pepto-Bismol frequently and reports stools are always black. -Admission labs finds a hemoglobin of 8.0 and hematocrit 23.9, H&H drawn on 2019, hemoglobin was 14.4 and hematocrit of 41.4. -Stool guiaic was positive. -hemoglobin trended down to 6.9, patient was transfused 1 unit PRBC, with appropriate response to 7.9. She improved to 8.9 which was stable x3. Plavix will be held upon discharge but she should be referred as soon as possible for outpatient GI follow up for possible EGD/colonoscopy. -CT C/A/P w/o contrast did not reveal a hematoma. -reticulocyte count 3.1%, LDH was not elevated and haptoglobin is still pending. Iron profile was unremarkable. -patient was started on Protonix IV PPI b.i.d. after initial dose of 80 mg for GI bleeding. She will continue on an oral protonix twice daily until GI follow up. 3. Chronic kidney disease stage III, present on admission, active -Creatinine on admission is 1.46. Improved to near baseline at 1.11. 4. Diabetes type 2, insulin-dependent with hyperglycemia, present on admission, active -Blood sugar on admission labs is 427, unknown if patient received dextrose from EMS. -Last hemoglobin A1c obtained on 10/25/2019 was 8.4. -Fingerstick blood sugars a.c. and HS with correctional insulin medium range was provided while inpatient. -Continue patient's home regimen of detemir insulin 34 units in the morning and 26 units at night. 5. Elevated serum troponin, unclear significance, present on admission, resolved -Troponin was found to be 0.039 on admission labs, this ultimately downtrended. -Troponin elevation may be related to presenting seizures. No ischemic changes were noted on EKG. 6. Hyponatremia, present on admission, resolved -Patient has had hyponatremia since labs on 11/24 when sodium level was 127, sodium level today is now within normal limits. IV fluids have been discontinued. 7. Generalized anxiety disorder with panic attacks, present on admission, active. -The patient's anxiety is exacerbated by current confusional state which may be related to underlying cognitive impairment, anemia, and benozodiazepine use. -Patient with a long history of anxiety for which she takes hydroxyzine 25 mg 2- 3 times daily. -The patient is seen in the ER on 11/26/2019 for anxiety and received lorazepam. -Will continue patient's home regimen of propranolol 20 mg twice daily, sertraline was discontinued given the possibility that it can lower seizure threshold. She will continue chronic benzodiazepine therapy at this time. This should be attempted to taper off slowly given seizures. -recommend outpatient follow up with psychiatry or geriatric psychiatry if able. Her brain MRI shows significant atrophy and SLUMS score with OT was 13/30 indicating cognitive impairment. 8. Alcohol abuse, present on admission, active. -New the patient nor her relate previous withdrawal symptoms or withdrawal seizures. -[facility] protocol with lorazepam as noted above. 9. Cognitive impairment, likely chronic, present on admission - MRI as noted above with significant atrophy. Possibly secondary to vascular dementia or alcoholism. VTE prophylaxis: Bilateral compression hose, will hold off on chemical prophylaxis given possible GI bleeding, however patient is on Plavix for her acute CVA. Diet: carb controlled diet [facility] Discharge orders & Medications Prescriptions: New atorvastatin 80 mg tablet 80 mg PO BEDTIME 30 Days Qty: 30 RF: 0 acetaminophen 325 mg Tablet 650 mg PO Q6HR PRN (Reason: Fever/Mild Pain (1-3)) 30 Days Qty: 30 RF: 0 folic acid 1 mg Tablet 1 mg PO DAILY 30 Days RF: 0 levetiracetam 500 mg tablet 500 mg PO BID 30 Days Qty: 60 RF: 0 multivitamin [Tab-A-Evy] Tablet 1 tab PO DAILY 30 Days Qty: 30 RF: 0 melatonin 3 mg Tablet 6 mg PO BEDTIME 30 Days Qty: 60 RF: 0 lorazepam 0.5 mg Tablet 0.5 mg PO TID 30 Days Qty: 90 RF: 0 pantoprazole 40 mg Tablet,Delayed Release (Dr/Ec) 40 mg PO 0700,2100 30 Days Qty: 60 RF: 0 Continued insulin detemir U-100 100 unit/mL (3 mL) insulin pen See Rx Instructions .ROUTE .COMPLEX RF: 0 lisinopril 30 mg Tablet 30 mg PO DAILY RF: 0 propranolol 20 mg Tablet 20 mg PO BID RF: 0 amitriptyline 10 mg Tablet 10 mg PO BEDTIME RF: 0 Discontinued atorvastatin 10 mg Tablet 10 mg PO DAILY RF: 0 chlorthalidone 25 mg Tablet 12.5 mg PO DAILY RF: 0 aspirin 81 mg Tablet,Delayed Release (Dr/Ec) 81 mg PO DAILY RF: 0 hydroxyzine HCl 25 mg Tablet 25 mg PO BID-TID PRN (Reason: as directed) RF: 0 sertraline 50 mg Tablet 50 mg PO DAILY RF: 0 Follow up/Referrals: Jeevan Cummins MD [Primary Care Provider] - (SNF TO SCHEDULE FOLLOW UP APPOINTMEN T) Discharge Health Status Health Concerns: Acute CVA Seizures Depression Diabetes Multidrug resistant organism: No MDRO Precautions: [place] Diet/Activity/Treatments Diet: Diet as Tolerated Activity: As tolerated Visit Report/Discharge Packet Instructions: DI for Seizure Disorder -- Adult, How to Prevent Falls Discharge Data Primary Care Provider: Jeevan Cummins Quality VTE Deep Vein Thrombosis/Pulmonary Embolism Present on Admission: No
--- NOTE | 2019-12-04 14:05 | CM.DPC ---
DCP/continued: Received call back from Roselia at [facility], she reports that they can accept today but that she received very little information from staff about patient's acceptance today. Roselia plans to follow up with admit coordinator (Prema) with questions. In the meantime, Roselia reports that she will send van to pickup driver patient today within the hour (approximately 2:45pm) pickup driver. Orders, and PASRR faxed to [facility]. Dr. Chavez stopped the zoloft due to side effects (seizure). Anxiety medication continued. Due to changes in medication for depression, provider signed and completed Hospital Exempt portion of PASRR. Met with patient and spouse. Both aware and agreeable to plan. Important message from Medicare signed. RN updated on the above and packet for discharge to be made by ORAL SURGERY TECHNICIAN and or emergency response officer/Hugo. P: [facility] today. THOMAS Seay
--- NOTE | 2019-12-04 14:56 | PC.NURSE ---
Discharge Pt denies pain. up with 1 person assist and FWW. Left sided weakness. Pt left in cabulance. present for d/c. Report called to [facility].
== END 2019-12-04 14:50 | DRG 64 ==
LOC: ED 18:20 → AC 12-01 08:07
PROVIDERS: Internal Medicine; Nurse Practitioner Adult Health; Admitting Provider Internal Medicine; Emergency Provider Emergency Medicine; PCP Internal Medicine; Referring Provider Emergency Medicine; Visit Provider Internal Medicine
DX: I63.81 Other cerebral infarction due to occlusion or stenosis of small artery (principal); R40.2322 Coma scale, best motor response, extension, at arrival to emergency department; R40.2112 Coma scale, eyes open, never, at arrival to emergency department; R40.2212 Coma scale, best verbal response, none, at arrival to emergency department; E87.1 Hypo-osmolality and hyponatremia; D62 Acute posthemorrhagic anemia; R56.9 Unspecified convulsions; I12.9 Hypertensive chronic kidney disease with stage 1 through stage 4 chronic kidney disease, or unspecified chronic kidney disease; N18.3 Chronic kidney disease, stage 3 (moderate); E11.65 Type 2 diabetes mellitus with hyperglycemia; D64.9 Anemia, unspecified; F41.1 Generalized anxiety disorder; F41.0 Panic disorder [episodic paroxysmal anxiety]; R41.0 Disorientation, unspecified; R79.89 Other specified abnormal findings of blood chemistry; F10.10 Alcohol abuse, uncomplicated; W18.30XA Fall on same level, unspecified, initial encounter; Z79.4 Long term (current) use of insulin; Z87.891 Personal history of nicotine dependence; Z91.81 History of falling
CPT/HCPCS: 36415; 36430; 70450; 70544; 70551; 71045; 71250; 74176; 80048; 80053; 80076; 80305; 81001; 82247; 82550; 82553; 82962; 83010; 83540; 83550; 83615; 83735; 84443; 84484; 85014; 85018; 85025; 85045; 85610; 85730; 86850; 86900; 86901; 87040; 93005; 94760; 94762; 96360; 96361; 97116; 97162; 97166; 97530; 97535; 99285; P9016; C9113; J2060; J3475; J3480

== ENCOUNTER → 2020-02-03 15:13 | Outpatient (ROUT) | payer MEDICARE, OTHER, SELFPAY ==
[2019-11-30 19:22] VITALS: BMI 24.0
[2020-02-03 15:54] LABS: Alanine Aminotransferase 12 IU/L (<35); Albumin Globulin Ratio 1.4 (1.0-2.8); Alkaline Phosphatase 160 U/L (38-126); Aspartate Aminotransferase 24 IU/L (14-36); BUN Creatinine Ratio 14.8 (6-22); Bilirubin Total 0.3 mg/dL (0.2-1.3); Blood Urea Nitrogen 16 mg/dL (7-17); Calcium 9.4 mg/dL (8.4-10.2); Carbon Dioxide 25 mmol/L (22-32); Chloride 99 mmol/L (98-107); Cholesterol 132 mg/dL (140-199); Estimated Glomerular Filt Rate 49.1 mL/min (>60); Globulin 2.8 g/dL (1.7-4.1); Glucose 176 mg/dL (80-110); HDL Cholesterol 59 mg/dL (40-60); HEMOLYSIS < 15 (0-50); LDL Cholesterol Calculated 41 mg/dL (<100); Potassium 3.7 mmol/L (3.4-5.1); Sodium 136 mmol/L (137-145); Total Protein 6.8 g/dL (6.3-8.2); Triglycerides 159 mg/dL (35-150); Uric Acid 8.9 mg/dL (2.5-6.2)
[2020-02-03 15:55] LABS: Hemoglobin A1C% w Est Avg Glu 7.6 % (4.0-6.0)
== END ==
PROVIDERS: PCP Internal Medicine; Visit Provider Internal Medicine
DX: E87.5 Hyperkalemia (principal); E11.40 Type 2 diabetes mellitus with diabetic neuropathy, unspecified; I10 Essential (primary) hypertension; M10.00 Idiopathic gout, unspecified site
CPT/HCPCS: 80053; 80061; 83036; 84550

== ENCOUNTER → 2020-02-09 12:18 | Outpatient (ROUT) | payer MEDICARE, OTHER, SELFPAY ==
[2019-11-30 19:22] VITALS: BMI 24.0
[2020-02-09 12:37] LABS: Cholesterol 142 mg/dL (140-199); HDL Cholesterol 65 mg/dL (40-60); LDL Cholesterol Calculated 58 mg/dL (<100); Triglycerides 96 mg/dL (35-150)
== END ==
PROVIDERS: PCP Internal Medicine; Visit Provider Internal Medicine
DX: E78.5 Hyperlipidemia, unspecified (principal)
CPT/HCPCS: 80061

== ENCOUNTER → 2020-03-09 09:27 | Outpatient (CLI) | payer MEDICARE, OTHER, SELFPAY ==
[2019-11-30 19:22] VITALS: BMI 24.0
[2020-03-09 10:57] LABS: BUN Creatinine Ratio 17.2 (6-22); Blood Urea Nitrogen 17 mg/dL (7-17); Calcium 10.1 mg/dL (8.4-10.2); Carbon Dioxide 27 mmol/L (22-32); Chloride 99 mmol/L (98-107); Cholesterol 138 mg/dL (140-199); Estimated Glomerular Filt Rate 54.2 mL/min (>60); Glucose 113 mg/dL (80-110); HDL Cholesterol 63 mg/dL (40-60); HEMOLYSIS < 15 (0-50); LDL Cholesterol Calculated 57 mg/dL (<100); Magnesium 1.8 mg/dL (1.6-2.3); Potassium 4.5 mmol/L (3.4-5.1); Sodium 135 mmol/L (137-145); Triglycerides 91 mg/dL (35-150)
[2020-03-09 11:28] LABS: Thyroid Stimulating Hormone 1.81 uIU/mL (0.47-4.68)
== END ==
PROVIDERS: PCP Internal Medicine; Referring Provider Nurse Practitioner; Visit Provider Nurse Practitioner
DX: I10 Essential (primary) hypertension (principal); E78.2 Mixed hyperlipidemia; R00.2 Palpitations
CPT/HCPCS: 36415; 80048; 80061; 83735; 84443

== ENCOUNTER → 2020-05-17 15:25 | Outpatient (CLI) | payer MEDICARE, OTHER, SELFPAY ==
[2019-11-30 19:22] VITALS: BMI 24.0
--- NOTE | 2020-05-17 15:42 | DI.MG.S_ITS ---
Patient Name: DINORA OCONNELL date: 1940 Sex: F Attending Physician: Placido Indications: Date: 05/17/2020 15:40 At the request of: NANCY BHATT Procedure: MM screening mammo BI BILATERAL DIGITAL SCREENING MAMMOGRAM 3D/2D WITH CAD: 05/17/2020 CLINICAL: Routine screening. Family history of breast cancer. Comparison is made to exams dated: 05/16/2019 mammogram, 04/13/2018 mammogram, 04/03/2017 mammogram, 02/05/2016 mammogram, and 01/25/2015 mammogram - [facility]. The tissue of both breasts is heterogeneously dense. This may lower the sensitivity of mammography. Current study was also evaluated with a Computer Aided Detection (CAD) system. No significant masses, calcifications, or other findings are seen in either breast. There has been no significant interval change. IMPRESSION: NEGATIVE There is no mammographic evidence of malignancy. A 1 year screening mammogram is recommended. This exam was interpreted at Station ID: [id number]. NOTE: For mammograms, a report in lay terms will be sent to the patient. Approximately 15% of breast malignancies will not be visualized mammographically. In the management of a palpable breast mass, a negative mammogram must not discourage biopsy of a clinically suspicious lesion. Electronically Signed By: Catrachito carmona/maral:05/17/2020 16:44:06 letter sent: Normal Exam ACR BI-RADS Category 1: Negative [id number]
== END ==
PROVIDERS: PCP Internal Medicine; Referring Provider Internal Medicine; Visit Provider Internal Medicine
DX: Z12.31 Encounter for screening mammogram for malignant neoplasm of breast (principal); Z80.3 Family history of malignant neoplasm of breast
CPT/HCPCS: 77063; 77067

== ENCOUNTER → 2020-06-15 12:00 | Outpatient (CLI) | payer MEDICARE, OTHER, SELFPAY ==
[2019-11-30 19:22] VITALS: BMI 24.0
[2020-06-15 12:43] LABS: Add Manual Diff / Slide Review NO; Basophils Absolute Auto 100 /uL (0-100); Basophils Percent Auto 0.7 % (0-2); Eosinophils Absolute Auto 200 /uL (0-450); Eosinophils Percent Auto 2.5 % (2-4); Hematocrit 35.1 % (36-46); Lymphocytes Absolute Auto 1200 /uL (1100-4500); Lymphocytes Percent Auto 17.1 % (25-40); Mean Corpuscular HGB Conc 34.1 % (30-36); Mean Corpuscular Hemoglobin 32.2 PG (26-34); Mean Corpuscular Volume 94.4 fL (80-100); Monocytes Absolute Auto 400 /uL (0-900); Monocytes Percent Auto 5.7 % (3-14); Neutrophils Absolute Auto 5300 /uL (1500-7000); Platelet Count 241 X10^3/uL (150-400); Red Blood Cell Count 3.72 X10^6/uL (4.0-5.2); Red Cell Distribution Width 14.3 % (11.6-14.8); White Blood Cell Count 7.2 X10^3/uL (4.5-11.0)
[2020-06-15 12:44] LABS: Reticulocyte Count, Percent 1.5 % (1.06-2.63)
[2020-06-15 12:58] LABS: Hemoglobin A1C% w Est Avg Glu 6.8 % (4.0-6.0)
[2020-06-15 13:22] LABS: HEMOLYSIS < 15 (0-50); Iron 141 ug/dL (37-170)
[2020-06-15 13:23] LABS: Blood Urea Nitrogen 19 mg/dL (7-17); Calcium 9.5 mg/dL (8.4-10.2); Carbon Dioxide 27 mmol/L (22-32); Chloride 102 mmol/L (98-107); Estimated Glomerular Filt Rate 43.8 mL/min (>60); Glucose 99 mg/dL (80-110); HEMOLYSIS < 15 (0-50); Potassium 4.6 mmol/L (3.4-5.1); Sodium 138 mmol/L (137-145); Uric Acid 5.4 mg/dL (2.5-6.2)
[2020-06-15 13:33] LABS: Percent Iron Saturation 42 % (15-50); Total Iron Binding Capacity 333 ug/dL (265-497); Transferrin 274 mg/dL (206-381)
[2020-06-15 13:58] LABS: Ferritin 25 ng/mL (11-264)
[2020-06-15 14:12] LABS: Vitamin B12 276 pg/mL (239-931)
[2020-06-15 14:56] LABS: Creatinine Urine Random 58.8 mg/dL; Microalbumi Creatinin Ratio Ur 112.2 ug/mg CR (<30); Microalbumin Urine Random 6.6 mg/dL (0-1.6)
[2020-06-15 16:37] LABS: Vitamin D 25 Hydroxy (D3) 13.2 ng/mL (30.0-100.0)
== END ==
PROVIDERS: PCP Student in an Organized Health Care Education/Training Program; Referring Provider Student in an Organized Health Care Education/Training Program; Visit Provider Student in an Organized Health Care Education/Training Program
DX: D62 Acute posthemorrhagic anemia (principal); E55.9 Vitamin D deficiency, unspecified; M10.9 Gout, unspecified; E11.9 Type 2 diabetes mellitus without complications; E87.1 Hypo-osmolality and hyponatremia; I10 Essential (primary) hypertension; G62.9 Polyneuropathy, unspecified
CPT/HCPCS: 36415; 80048; 82043; 82306; 82570; 82607; 82728; 83036; 83540; 83550; 84550; 85025; 85045

== ENCOUNTER → 2020-11-14 10:07 | Outpatient (CLI) | payer MEDICARE, OTHER, SELFPAY ==
[2020-11-05 08:11] VITALS: BMI 24.0
[2020-11-14 11:17] LABS: BUN Creatinine Ratio 16.5 (6-22); Blood Urea Nitrogen 19 mg/dL (7-17); Estimated Glomerular Filt Rate 45.5 mL/min (>60)
[2020-11-14 11:22] LABS: Hemoglobin A1C% w Est Avg Glu 6.5 % (4.0-6.0)
== END ==
PROVIDERS: PCP Student in an Organized Health Care Education/Training Program; Referring Provider Student in an Organized Health Care Education/Training Program; Visit Provider Student in an Organized Health Care Education/Training Program
DX: E11.9 Type 2 diabetes mellitus without complications (principal); E55.9 Vitamin D deficiency, unspecified
CPT/HCPCS: 36415; 82306; 82565; 83036; 84520

== ENCOUNTER → 2020-11-29 08:14 | Outpatient (CLI) | payer MEDICARE, OTHER, SELFPAY ==
[2020-11-05 08:11] VITALS: BMI 24.0
[2020-11-29] MEDS: COVID-19 VACC, Ad26(JANSSEN)/PF 0.5 ML IM (08:24)
== END ==
PROVIDERS: PCP Student in an Organized Health Care Education/Training Program; Visit Provider Internal Medicine
DX: Z23 Encounter for immunization (principal)
CPT/HCPCS: 0031A; 91303

== ENCOUNTER → 2021-05-28 09:12 | Outpatient (CLI) | payer MEDICARE, OTHER, SELFPAY ==
[2020-11-05 08:11] VITALS: BMI 24.0
[2021-05-28 10:14] LABS: Hemoglobin A1C% w Est Avg Glu 6.2 % (4.0-6.0)
[2021-05-28 10:17] LABS: BUN Creatinine Ratio 15.6 (6-22); Blood Urea Nitrogen 19 mg/dL (7-17); Estimated Glomerular Filt Rate 42.4 mL/min (>60)
== END ==
PROVIDERS: PCP Student in an Organized Health Care Education/Training Program; Referring Provider Student in an Organized Health Care Education/Training Program; Visit Provider Student in an Organized Health Care Education/Training Program
DX: N18.30 Chronic kidney disease, stage 3 unspecified (principal); E11.21 Type 2 diabetes mellitus with diabetic nephropathy; Z79.4 Long term (current) use of insulin
CPT/HCPCS: 36415; 82565; 83036; 84520

== ENCOUNTER 2021-06-24 11:40 | Emergency (ER) | payer MEDICARE, OTHER, SELFPAY ==
[2020-11-05 08:11] VITALS: BMI 24.0
[2021-06-24 12:01] VITALS: BP 184/80; PULSE 88; RESP 24; TEMP 36.2; O2SAT 99
--- NOTE | 2021-06-24 13:04 | DI.CT.S_ITS ---
PROCEDURE: CT HEAD/BRAIN WO CON INDICATIONS: fall, hit head on pavement TECHNIQUE: Noncontrast 4.5 mm thick angled axial sections acquired from the foramen magnum to the vertex, with coronal and sagittal reformats. For radiation dose reduction, the following was used: automated exposure control, adjustment of mA and/or kV according to patient size. COMPARISON: Merged With [facility], CT, CT HEAD/BRAIN WO CON, 11/30/2019, 16:18. FINDINGS: Image quality: Excellent. CSF spaces: Basal cisterns are patent. No extra-axial fluid collections. The ventricles are symmetric in size and shape. Brain: No intracranial bleeds or masses. There is cerebral volume loss for age, with resultant ventricular and sulcal prominence. There are moderate periventricular and deep white matter chronic small vessel ischemic changes. There is intracranial internal carotid artery atherosclerosis. Skull and face: Calvarium and visualized facial bones appear intact, without suspicious lesions. Sinuses: Visualized sinuses and mastoids are clear. IMPRESSION: 1. Age related volume loss and moderate small vessel ischemic change. 2. No evidence acute stroke, hemorrhage, or mass. 3. No evidence of significant sequelae of acute intracranial trauma. Dictated by: Soren Osman M.D. on 06/24/2021 at 13:55 Approved by: Soren Osman M.D. on 06/24/2021 at 13:56
--- NOTE | 2021-06-24 13:05 | DI.RAD.S_ITS ---
PROCEDURE: XR ELBOW RT MIN 3V INDICATIONS: fell, hit right elbow, small laceration TECHNIQUE: 3 views of the elbow were acquired. COMPARISON: None. FINDINGS: Bones: No fractures or dislocations. No suspicious bony lesions. Soft tissues: No elbow joint effusion. No suspicious soft tissue calcifications. IMPRESSION: No gross acute elbow fracture or dislocation. No radiopaque foreign body. No joint effusion. Dictated by: Jude Albarran M.D. on 06/24/2021 at 13:48 Approved by: Jude Albarran M.D. on 06/24/2021 at 13:52
--- NOTE | 2021-06-24 13:05 | DI.CT.S_ITS ---
PROCEDURE: CT CERVICAL SPINE WO CON INDICATIONS: fall, hit head on pavement TECHNIQUE: Noncontrast 3 mm thick sections acquired from the skull base to the T4 level. Sagittal and coronal reformats were then constructed. For radiation dose reduction, the following was used: automated exposure control, adjustment of mA and/or kV according to patient size. COMPARISON: None. FINDINGS: Image quality: Excellent. Bones: No fractures or dislocations. Moderate degenerative change in the cervical spine. There is ankylosis of the posterior elements at C2-C3 on the right. Visualized superior ribs are intact. Soft tissues: Prevertebral soft tissues are normal in thickness. No paravertebral hematomas. No apical pneumothoraces. [id number] carotid bulb calcified plaque. Trace mucosal thickening in the left maxillary sinus. IMPRESSION: No acute osseous abnormality. Dictated by: aCtrachito Miller M.D. on 06/24/2021 at 13:57 Approved by: Catrachito Miller M.D. on 06/24/2021 at 13:59
[2021-06-24 14:15] VITALS: PULSE 69; O2SAT 98
[2021-06-24 14:16] VITALS: BP 194/85; PULSE 65; O2SAT 99
[2021-06-24 14:30] VITALS: BP 190/84; PULSE 62; O2SAT 99
[2021-06-24] MEDS: TET,DIPH,PERTUSS(ACELL),VAC/PF 0.5 ML SYRINGE IM (14:46)
[2021-06-24 14:47] VITALS: BP 190/84; PULSE 99; O2SAT 62
--- NOTE | 2021-06-24 14:48 | ED.FALL ---
HPI - Fall <Beka Swann PA-C - Last Filed: 06/24/21 15:03> General Chief Complaint: Fall Stated Complaint: Fell and hurt right arm Time Seen by Provider: 06/24/21 14:23 Source: patient Mode of arrival: Wheelchair History of Present Illness HPI Narrative: 81-year-old female with past medical history CVA, hyperlipidemia, chronic kidney disease, diabetes, diabetic neuropathy, seizures, anxiety, hypertension presents to the ED status post a fall sustained just prior to arrival. Patient sustained a mechanical fall while walking too fast with her walker on the hospital premises when she came to physical therapy today. Patient denies any lightheadedness, dizziness, feeling unwell prior to the fall. Patient fell backwards hit the back of her head, did not lose consciousness, has scraped her right elbow. Onlookers on the scene helped her up, endorsed no loss of consciousness. Patient is not on blood thinners. In the ED, patient denies headache, dizziness, lightheadedness, chest pain, shortness of breath, fever, chills, cough, nausea, vomiting. Tetanus status unknown. Related Data Home Medications Medication Instructions Recorded Confirmed propranolol 20 mg tablet 20 mg PO BID 11/30/19 11/14/20 allopurinol 100 mg tablet 100 mg PO DAILY 06/15/20 11/14/20 aspirin 81 mg tablet,delayed 81 mg PO DAILY 06/15/20 11/14/20 release (Adult Low Dose Aspirin) atorvastatin 80 mg tablet 80 mg PO BEDTIME 06/15/20 11/14/20 chlorthalidone 25 mg tablet 12.5 mg PO DAILY tab 06/15/20 11/14/20 levetiracetam 500 mg tablet 500 mg PO BID 06/15/20 11/14/20 Previous Rx's Medication Instructions Recorded gabapentin 600 mg tablet 600 mg PO BEDTIME #90 tab 11/14/20 one touch verio test strips #300 ea 11/14/20 sertraline 50 mg tablet 50 mg PO DAILY #90 tab 11/16/20 lisinopril 20 mg tablet 20 mg PO BID #180 tab 02/20/21 insulin detemir U-100 100 unit/mL See Rx Instructions SUBCUT 06/25/21 (3 mL) subcutaneous pen .COMPLEX #15 ml Allergies Allergy/AdvReac Type Severity Reaction Status Date / Time oxycodone [From Percocet] AdvReac Nausea Verified 06/24/21 12:03 Review of Systems <Beka Swann PA-C - Last Filed: 06/24/21 15:03> Review of Systems Narrative: Fall with occipital head strike, laceration to scalp Constitutional Constitutional: Denies chills, Denies fatigue, Denies fever(s), Denies frequent falls, Denies lethargy and Denies weakness Eyes Eyes: Denies change in vision, Denies eye discharge, Denies irritation and Denies loss of vision ENT Ears, Nose, Mouth, and Throat: Denies change in voice, Denies dizziness, Denies neck pain, Denies sore throat and Denies throat swelling Cardiovascular Cardiovascular: Denies chest pain, Denies irregular heart rhythm, Denies lightheadedness, Denies palpitations, Denies dyspnea, Denies dyspnea on exertion and Denies orthopnea Respiratory Respiratory: Denies cough, Denies dyspnea, Denies dyspnea on exertion and Denies wheezing Gastrointestinal Gastrointestinal: Denies abdominal pain, Denies change in bowel habits, Denies diarrhea, Denies nausea and Denies vomiting Musculoskeletal Musculoskeletal: Denies neck pain and Denies numbness Comments: Right elbow injury Integumentary/Breasts Skin/Breast: Denies pruritus, Denies erythema, Denies rash and Denies wounds Neurologic Neurologic: Denies behavioral changes, Denies confusion, Denies dizziness, Denies frequent falls, Denies loss of vision, Denies numbness and Denies weakness Psychiatric Psychiatric: Denies anxiety, Denies behavioral changes, Denies confusion, Denies depression, Denies homicidal ideation and Denies suicidal ideation Endocrine Endocrine: Denies fatigue, Denies flushing and Denies palpitations Hematologic/Lymphatic Hematologic/Lymphatic: Denies easy bruising Allergic/Immunologic Allergic/Immunologic: Denies urticaria, Denies throat swelling and Denies wheezing Patient History <Beka Swann PA-C - Last Filed: 06/24/21 15:03> Medical History Acute post-hemorrhagic anemia Alcohol abuse Anxiety Cellulitis of hand, right Diabetes type 2, controlled Neuropathy Panic attack Vitamin D deficiency Surgical History History of History of ectopic Family History Father No problems noted. Mother Dementia Social History household members: spouse lives independently: Yes Smoking Status: Former smoker alcohol intake: current Smoking Status: Former smoker alcohol intake frequency: 3 or more drinks per day Alcohol type: wine Substance Use Type: does not use Exam <Beka Swann PA-C - Last Filed: 06/24/21 15:03> Initial Vital Signs Initial Vital Signs: Vital Signs Temperature 97.1 F L 06/24/21 12:01 Pulse Rate 88 06/24/21 12:01 Respiratory Rate 24 06/24/21 12:01 Blood Pressure 184/80 H 06/24/21 12:01 Pulse Oximetry 99 06/24/21 12:01 Const General: cooperative HENMT Head: normocephalic, No atraumatic and laceration (Small occipatal abrasin, does not need repair, no bleeding) Ears: external ears normal and TM's normal bilaterally Nose: external nose normal and No nasal discharge Face and sinus: sinuses nontender, face symmetric, no sinus tenderness and No dry mucous membranes Mouth: oral mucosae normal and moist mucous membranes Teeth and gingiva: dentition normal Throat: tonsils normal and uvula midline Eyes General: appearance normal, both eyes and all related structures Eyelids: eyelids normal Conjunctivae: conjunctivae normal Sclera: sclerae normal Pupils: PERRL EOM: EOM intact bilaterally Neck Neck: normal visual inspection, trachea midline, No lymphadenopathy, No midline deformity and No JVD Lymphatic: No lymphedema Chest Chest: normal inspection of the chest Resp Effort & Inspection: normal respiratory effort, able to speak in complete sentences, no respiratory distress and no use of accessory muscles Auscultation: clear to auscultation bilaterally, no rales, no rhonchi and no wheezes Cardio Rate: regular rate Rhythm: regular rhythm Heart Sounds: no click, no gallops, no murmurs and no rubs Pulses: normal peripheral pulses GI Inspection: non-distended Palpation: soft, no hepatosplenomegaly, No guarding, No pulsatile mass and No tender Auscultation: normal bowel sounds Back/Spine/Pelvis Back: No CVA tenderness Cervical Spine: cervical ROM normal and No pain with cervical ROM Thoracic/Lumbar Spine: thoracic and lumbar spine normal to inspection Skin General: no rashes or lesions noted, No jaundice and No petechiae Neuro General: patient alert, patient oriented x3, gait normal and no focal motor deficits Speech: speech normal Extrem General: full ROM, no clubbing, cyanosis or edema, no pedal edema and no calf tenderness Other: Abrasion to right elbow, not currently bleeding. No repair needed. Full range of motion of elbow, arm. Neurovascularly intact. Psych Appearance: well kempt Mental Status: mental status grossly normal Attitude: cooperative Thought Content: normal and suicidality Judgment: judgment good <Debi Clemens DO - Last Filed: 06/26/21 08:17> Initial Vital Signs Initial Vital Signs: Vital Signs Temperature 97.1 F L 06/24/21 12:01 Pulse Rate 88 06/24/21 12:01 Respiratory Rate 24 06/24/21 12:01 Blood Pressure 184/80 H 06/24/21 12:01 Pulse Oximetry 99 06/24/21 12:01 Course <Beka Swann PA-C - Last Filed: 06/24/21 15:03> Course Course Narrative: CT spine, CT head, elbow x-ray negative for acute findings. Will update patient's tetanus. Will discharge home with ED return precautions. Orders Ordered: Discontinued Medications Diphtheria/Tetanus/Acell Pertussis (Diph,Pertuss(Acell),Tet Vac/Pf 0.5 Ml Syringe) 0.5 ml IM .ONCE ONE Stop: 06/24/21 14:41 Last Admin: 06/24/21 14:44 Dose: Not Given Documented by: BONNIE Diphtheria/Tetanus/Acell Pertussis (Tet,Diph,Pertuss(Acell),Vac/Pf 0.5 Ml Syringe) 0.5 ml IM .ONCE ONE Stop: 06/24/21 14:46 Last Admin: 06/24/21 14:46 Dose: 0.5 ml Documented by: BONNIE Vital Signs Vital signs: Vital Signs - 8 hr 06/24/21 12:01 06/24/21 14:15 06/24/21 14:16 Temperature 97.1 F L Pulse Rate 88 69 65 Respiratory Rate 24 Blood Pressure 184/80 H 194/85 H Pulse Oximetry 99 98 99 06/24/21 14:30 Temperature Pulse Rate 62 Respiratory Rate Blood Pressure 190/84 H Pulse Oximetry 99 <Debi Clemens DO - Last Filed: 06/26/21 08:17> Orders Ordered: Discontinued Medications Diphtheria/Tetanus/Acell Pertussis (Diph,Pertuss(Acell),Tet Vac/Pf 0.5 Ml Syringe) 0.5 ml IM .ONCE ONE Stop: 06/24/21 14:41 Last Admin: 06/24/21 14:44 Dose: Not Given Documented by: BONNIE Diphtheria/Tetanus/Acell Pertussis (Tet,Diph,Pertuss(Acell),Vac/Pf 0.5 Ml Syringe) 0.5 ml IM .ONCE ONE Stop: 06/24/21 14:46 Last Admin: 06/24/21 14:46 Dose: 0.5 ml Documented by: BONNIE Vital Signs Vital signs: Vital Signs - 8 hr 06/24/21 12:01 06/24/21 14:15 06/24/21 14:16 Temperature 97.1 F L Pulse Rate 88 69 65 Respiratory Rate 24 Blood Pressure 184/80 H 194/85 H Pulse Oximetry 99 98 99 06/24/21 14:30 Temperature Pulse Rate 62 Respiratory Rate Blood Pressure 190/84 H Pulse Oximetry 99 MDM - Fall <Beka Swann PA-C - Last Filed: 06/24/21 15:03> Imaging Data CT scan - head: Radiologist's Impression: ?PROCEDURE:? CT HEAD/BRAIN WO CON ? INDICATIONS:? fall, hit head on pavement ? TECHNIQUE:? Noncontrast 4.5 mm thick angled axial sections acquired from the foramen magnum to the vertex, with coronal and sagittal reformats.? For radiation dose reduction, the following was used:? automated exposure control, adjustment of mA and/or kV according to patient size.? ? COMPARISON:? [facility], CT, CT HEAD/BRAIN WO CON, 11/30/2019, 16:18. ? FINDINGS:? Image quality:? Excellent.? ? CSF spaces:? Basal cisterns are patent.? No extra-axial fluid collections.? The ventricles are symmetric in size and shape.? ? Brain:? No intracranial bleeds or masses.? There is cerebral volume loss for age, with resultant ventricular and sulcal prominence.? There are moderate periventricular and deep white matter chronic small vessel ischemic changes.? There is intracranial internal carotid artery atherosclerosis.? ? Skull and face:? Calvarium and visualized facial bones appear intact, without suspicious lesions.? ? Sinuses:? Visualized sinuses and mastoids are clear.? ? IMPRESSION:? ? 1. Age related volume loss and moderate small vessel ischemic change. ? 2. No evidence acute stroke, hemorrhage, or mass. ? 3. No evidence of significant sequelae of acute intracranial trauma. ? ? ? Dictated by: Soren Osman M.D. on 06/24/2021 at 13:55 ? ? Approved by: Soren Osman M.D. on 06/24/2021 at 13:56 ? CT - cervical spine: Radiologist's Impression: PROCEDURE:? CT CERVICAL SPINE WO CON ? INDICATIONS:? fall, hit head on pavement ? TECHNIQUE:? Noncontrast 3 mm thick sections acquired from the skull base to the T4 level.? Sagittal and coronal reformats were then constructed.? For radiation dose reduction, the following was used:? automated exposure control, adjustment of mA and/or kV according to patient size.? ? COMPARISON:? None. ? FINDINGS:? Image quality:? Excellent.? ? Bones:? No fractures or dislocations.? Moderate degenerative change in the cervical spine.? There is ankylosis of the posterior elements at C2-C3 on the right.? Visualized superior ribs are intact.? ? Soft tissues:? Prevertebral soft tissues are normal in thickness.? No paravertebral hematomas.? No apical pneumothoraces.? [id number] carotid bulb calcified plaque.? Trace mucosal thickening in the left maxillary sinus. ? ? IMPRESSION:? No acute osseous abnormality. ? ? ? Dictated by: Catrachito Miller M.D. on 06/24/2021 at 13:57 ? ? Approved by: Catrachito Miller M.D. on 06/24/2021 at 13:59 ? Extremity x-ray #1: Radiologist's Impression: PROCEDURE:? XR ELBOW RT MIN 3V ? INDICATIONS:? fell, hit right elbow, small laceration ? TECHNIQUE:? 3 views of the elbow were acquired.? ? COMPARISON:? None. ? FINDINGS:? ? Bones:? No fractures or dislocations.? No suspicious bony lesions.? ? Soft tissues:? No elbow joint effusion.? No suspicious soft tissue calcifications.? ? ? IMPRESSION:? No gross acute elbow fracture or dislocation.? No radiopaque foreign body.? No joint effusion. ? ? Dictated by: Jude Albarran M.D. on 06/24/2021 at 13:48 ? ? Approved by: Jude Albarran M.D. on 06/24/2021 at 13:52 ? MDM Narrative Medical decision making narrative: 81-year-old female with past medical history CVA, hyperlipidemia, chronic kidney disease, diabetes, diabetic neuropathy, seizures, anxiety, hypertension presents to the ED status post a fall sustained just prior to arrival. Given mechanical fall, concern for intracranial bleed versus fractures. Patient is neurologically intact. Will order CT head, right elbow x-ray. Will update tetanus. Will reassess. Likely DC home if negative workup. Discharge Plan Departure Patient Disposition: Home Clinical Impression: Fall Qualifiers: Encounter type: initial encounter Qualified Code(s): W19.XXXA - Unspecified fall, initial encounter Instructions: How to Prevent Falls Activity Restrictions/Additional Instructions: You were evaluated in the ED today for a fall sustained just prior to arrival. Your head CT an elbow x-ray were normal. You sustained a small abrasion to the back of your head, right elbow. We gave you a tetanus booster shot today in the ED. Return to the ED if you experience dizziness, lightheadedness, chest pain, shortness of breath, numbness, tingling, weakness. Prescriptions: No Action sertraline 50 mg tablet 50 mg PO DAILY Qty: 90 RF: 3 lisinopril 20 mg tablet 20 mg PO BID Qty: 180 RF: 2 insulin detemir U-100 100 unit/mL (3 mL) insulin pen See Rx Instructions SUBCUT .COMPLEX Qty: 15 RF: 1 chlorthalidone 25 mg tablet 12.5 mg PO DAILY RF: 0 aspirin [Adult Low Dose Aspirin] 81 mg tablet,delayed release (DR/EC) 81 mg PO DAILY RF: 0 levetiracetam 500 mg tablet 500 mg PO BID RF: 0 Hold Instructions: Trial of cessation atorvastatin 80 mg tablet 80 mg PO BEDTIME RF: 0 allopurinol 100 mg tablet 100 mg PO DAILY RF: 0 gabapentin 600 mg tablet 600 mg PO BEDTIME Qty: 90 RF: 3 (DME) one touch verio test strips See Rx Instructions .Route .MEDSUPPLY Qty: 300 RF: 3 propranolol 20 mg Tablet 20 mg PO BID RF: 0 Referrals: Sid Bush MD [Primary Care Provider] - <Debi Clemens DO - Last Filed: 06/26/21 08:17> Cosign ED Attending Cosgiselature Attestation: I was immediately available in the department for consultation. Documentation has been reviewed. I agree with assessment and plan.
== END 2021-06-24 14:49 | disposition home or self-care (01) ==
PROVIDERS: Emergency Provider Student in an Organized Health Care Education/Training Program; PCP Student in an Organized Health Care Education/Training Program
DX: S09.90XA Unspecified injury of head, initial encounter (principal); S00.01XA Abrasion of scalp, initial encounter; S50.311A Abrasion of right elbow, initial encounter; W19.XXXA Unspecified fall, initial encounter; Z23 Encounter for immunization
CPT/HCPCS: 70450; 72125; 73080; 90471; 99284; 90715

== ENCOUNTER → 2021-07-04 09:21 | Outpatient (CLI) | payer MEDICARE, OTHER, SELFPAY ==
[2020-11-05 08:11] VITALS: BMI 24.0
--- NOTE | 2021-07-04 09:22 | DI.MG.S_ITS ---
BILATERAL DIGITAL SCREENING MAMMOGRAM 3D/2D WITH CAD: 07/04/2021 CLINICAL: Routine screening. Family history of breast cancer. Comparison is made to exams dated: 05/17/2020 mammogram, 05/16/2019 mammogram, and 04/13/2018 mammogram - [facility]. The tissue of both breasts is heterogeneously dense. This may lower the sensitivity of mammography. Current study was also evaluated with a Computer Aided Detection (CAD) system. There are benign vascular calcifications in both breasts. No significant masses, calcifications, or other findings are seen in either breast. There has been no significant interval change. IMPRESSION: BENIGN There is no mammographic evidence of malignancy. A 1 year screening mammogram is recommended. This exam was interpreted at Station ID: [id number]. NOTE: For mammograms, a report in lay terms will be sent to the patient. Approximately 15% of breast malignancies will not be visualized mammographically. In the management of a palpable breast mass, a negative mammogram must not discourage biopsy of a clinically suspicious lesion. Electronically Signed By: Nicho tran/maral:07/04/2021 10:53:14 letter sent: Normal Exam ACR BI-RADS Category 2: Benign Finding(s) 3342F
== END ==
PROVIDERS: PCP Student in an Organized Health Care Education/Training Program; Referring Provider Student in an Organized Health Care Education/Training Program; Visit Provider Student in an Organized Health Care Education/Training Program
DX: Z12.31 Encounter for screening mammogram for malignant neoplasm of breast (principal); Z80.3 Family history of malignant neoplasm of breast
CPT/HCPCS: 77063; 77067

== ENCOUNTER 2021-07-15 14:15 | Outpatient (RCR) | payer MEDICARE, OTHER, SELFPAY ==
[2020-11-05 08:11] VITALS: BMI 24.0
--- NOTE | 2021-02-04 17:07 | PT.OIE ---
Current Diagnoses Muscle weakness (generalized) (02/04/21) Difficulty in walking, not elsewhere classified (02/04/21) Abnormal posture (02/04/21) Other symptoms and signs involving the nervous system (02/04/21) Past Medical History (This Medical Record has been edited. Action required.) Acute post-hemorrhagic anemia Alcohol abuse Anxiety Cellulitis of hand, right Diabetes type 2, controlled Neuropathy Panic attack Vitamin D deficiency Past Surgical History (This Medical Record has been edited. Action required.) History of History of ectopic Visit Care Team Role Provider Type Sid Bush MD Attending Provider Physician Primary Care Provider Referring Provider Specialty: Internal Medicine Address: [address] [place] [address], [address], [facility] Email: [email or web address] Physical Therapy Initial Evaluation PT-OP-A Visit Information Start: 01/31/21 17:56 Freq: Status: Active Protocol: Document 02/04/21 08:18 LRN (Rec: 02/04/21 09:07 LRN [id number]) Out-Patient Physical Therapy Visit Information Visit Information Visit Type Initial Evaluation Visit Start Time 08:18 Visit Stop Time 09:06 Total Visit Minutes 48 Visit Number 1 Evaluation Information Evaluation Date 02/04/21 Precautions Precautions 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 PT-OP-B Current Condition Start: 01/31/21 17:56 Freq: Status: Active Protocol: Document 02/04/21 08:18 LRN (Rec: 02/04/21 09:07 LRN [id number]) Current Condition History of Current Condition Onset Date November 2019 Current Complaints Having to use walker to walk. 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 In hospital 3-4 days, transferred to [facility] in [place] (long term) and found PT to not be helpful, then home health care after 14 days of quarrentine after catching COVID. Had home health PT for 3 months. Now seeking outpatient PT independently. States she needs help walking without a walker. Have fallen a few times immediately after returning home, due to weak L leg. Doesn't have feeling in feet and has sharp pains in feet; therefore on Gabapentin. Uses topical CBD cream that helps a little. During the day and while walking around, no pain. Pain in feet is mainly at night when trying to go to sleep, or sitting watching TV. Prior Treatments and Tests Few years ago had PT for neuropathy. Has treadmill at home that she uses sometimes. Treatment Goals Patient/Caregiver Goals Pt goal is to be able to walk without a walker using a cane, improve endurance and balance and pt agreeable to being placed on a HEP at discharge. 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 Had to sit on bench to rest. Baseline Function- Other Up/down steps using 2 railings . Current Functional Impairments (Reported) Functional Limitations- ADL's Ambs around home occasioinally without walker (kitchen to living room, living room to laudry room and bathrrom). Walks on deck with FWW. Functional Limitations- Mobility/Gait Ambulates with FWW independently. 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 Can go up/down steps using 2 railings. Personal Factors Other Personal Factors That May Effect Neuropathy of the feet. Therapy/Recovery PT-OP-C Subjective Start: 01/31/21 17:56 Freq: Status: Active Protocol: Document 02/04/21 08:18 LRN (Rec: 02/04/21 09:07 LRN [id number]) Patient Questionnaires ABC- Activity Specific Balance Confidence Scale ABC Score 10.62 ABC Functional Impairment 80 to <100% Impaired (Score 1- 20) PT-OP-D Balance Start: 01/31/21 17:56 Freq: Status: Active Protocol: Document 02/04/21 08:18 LRN (Rec: 02/04/21 09:07 LRN [id number]) Arrieta Balance Assessment Evaluation Sitting to Standing Ability Independent w/out Hands Unsupported Stance 30 seconds Sitting Unsupported, Feet on Floor Safely- 2 minutes Standing to Sitting Ability Independent, Uncontrolled Transfer Ability Safely, Minimal Hand Use Unsupported Stance- Eyes Closed Falls Without Assistance Unsupported Stance- Eyes Open Assist to attain, 15 secs Reaching Forward Standing Safely, 2 inches Pick- Up Object From Floor Requires Assistance Look Behind Shoulder - Standing Assist to Prevent Fall Turning 360 Degrees Requires Assistance Unsupported Stance, Alternating Feet on Assist to Prevent Fall Stair Unsupported Tandem Stance Balance Lost- Step/Stand Unilateral Leg Stance Unable,assist to not fall Total Score Arrieta Total Score (out of 56 points) 18 Arrieta Impairment Rating 60 to 79% Impaired (Score 12- 22) Tinetti Balance Assessment Sitting Balance Sitting Balance Steady, safe Arising from Chair Ability to Arise Able, w/o using arms Attempts to Arise Arises on 1st attempt Standing Balance Immediate Standing Balance Unsteady Standing Balance Unsteady Nudged Response Begins to fall Standing with Eyes Closed Unsteady Turning Step Pattern Turning 360 Degrees Continuous steps Stability Turning 360 Degrees Unsteady, grabs/staggers Sitting Down Sitting Down Unsafe Gait and Step Initiation of Gait No hesitancy Right Foot Step Length Does not pass stance ft. Right Foot Step Height Completely clears floor Left Foot Step Length Does not pass stance foot Left Foot Step Height Completely clears floor Step Description Step Symmetry Step length not equal Step Continuity Steps appear continuous Gait Description Path Description Straight Trunk Description Marked sway or uses aide Walking Stance Heels together Scoring and Interpretation Tinetti Composite Score (points) 13 Interpretation of Scores High risk for falls(< 19) Tinetti Impairment Rating from Composite 40 to <60% Impaired (Score 12- Score 16) PT-OP-E Functional Tests Start: 01/31/21 17:56 Freq: Status: Active Protocol: Document 02/04/21 08:18 LRN (Rec: 02/04/21 09:07 LRN [id number]) Functional Tests 30 Second Sit to Stand Test Score 9x Other 5TSTS Name of Test 5TSTS Score 15.74 secs PT-OP-G Mobility & Gait Start: 01/31/21 17:56 Freq: Status: Active Protocol: Document 02/04/21 08:18 LRN (Rec: 02/04/21 09:07 LRN [id number]) OP Gait Assessment Gait Gait Assistance Required: Independent Distance (Feet) 100 Able to Maintain Weight Bearing Status Yes During Gait Assistive Devices Assistive Device Front Wheeled Walker Gait Deviations General Gait Pattern Decreased Stride Length,Flexed Trunk,Lateral Trunk Lean, Narrow Based Gait,Step-to Gait Factors Limiting Gait Function Factors Limiting Gait Function Decreased Activity Tolerance, Decreased Strength,Poor Balance PT-OP-J Posture/Palpation/Skin Start: 01/31/21 17:56 Freq: Status: Active Protocol: Document 02/04/21 08:18 LRN (Rec: 02/04/21 09:07 LRN [id number]) Posture Evaluation Position Standing Head/C-Spine Posture Forward Head T-Spine Posture Increased Kyphosis L-Spine Posture Flattened Shoulder Posture (L) Elevated Pelvis Posture Anteriorly Tilted,Posterior Tilted Weight Distribution Weight Shifted Right Knee Posture (L) Genu Valgus,(R) Genu Valgus Comments Posture Comments Foot deformity FB at hips ~35 deg's, L hip retracted. PT-OP-M Strength Start: 01/31/21 17:56 Freq: Status: Active Protocol: Document 02/04/21 08:18 LRN (Rec: 02/04/21 09:07 LRN [id number]) Hip Strength Hip Manual Muscle Testing Right Flexion (L2) 5 Normal Left Flexion (L2) 4 Good Knee Strength Knee Manual Muscle Testing Right Comments Generally 5/5 Left Comments Generally 5/5 Ankle/Foot Strength Ankle and Foot Manual Muscle Testing Right Comments Generally 5/5 Left Inversion 3 Fair Comments L foot deformity limiting IV mobility. PT-OP-Q Treatments Start: 01/31/21 17:56 Freq: Status: Active Protocol: Document 02/04/21 08:18 LRN (Rec: 02/04/21 09:07 N [id number]) Self-Care/Home Management Treatment Education Other Education Discussed results of evaluation, goals, and plan of care. Pt agreeable. PT-OP-T Assessment and Plan Start: 01/31/21 17:56 Freq: Status: Active Protocol: Document 02/04/21 08:18 LRN (Rec: 02/04/21 09:07 [facility] [id number]) Physical Therapy Assessment Rehab Potential Rehabilitation Potential Good Evaluation Complexity Number of Personal Factors/Comorbidities 1-2 Number of Body Systems Impaired 4 or More Clinical Presentation at Evaluation Evolving Impairments Impairments Activity Tolerance,Balance, Gait,Posture,Strength, Transfers Goals Four Impairment Decreased endurance (30 sec sit to stand - 9 reps; 5TSTS = 15.7 secs) Short Term Goal (STG) Improve 5TSTS TO 12.6 secs ( Norm for 80-89 yo is 14.8 sec' s) STG Duration 03/08/21 Fpc Goal (LTG) Improve 30 sit to stand to 10- 15 reps (norm for ages 75-79 is 10-15 reps) LTG Duration 05/05/21 Three Impairment Decreased Balance per ARRIETA score of 18 (60<80% impaired) Short Term Goal (STG) Improve standing reach (5 or more safely), and ability to stand and look behind without loss of balance. STG Duration 03/22/21 Flying Teacher Goal (LTG) ARRIETA balance score of 34-44 ( 20<40% impaired) LTG Duration 05/05/21 Two Impairment Decreased gait with need of FWW for safety (Tinetti 13 = high fall risk) Short Term Goal (STG) Overall Tinetti score 23-27 (1 <20% impaired) or score 19-24 (medium fall risk, <14 high fall) risk). STG Duration 03/22/21 Fpc Goal (LTG) Pt will be able to walk without a cane safely 100' or more. LTG Duration 05/05/21 One Impairment Lacks appropriate HEP. Short Term Goal (STG) Improve ABC score 41-60 (40<60 % impaired). Eval score is 10 .62. STG Duration 03/22/21 Fpc Goal (LTG) Pt will be independent with a self care HEP to promote improving LE strength and balance. LTG Duration 05/05/21 Assessment Summary Assessment Pt is a 80 yo female who is ~ 14 months s/p R CVA with mild LE weakness, decreased sensation of feet due to neuropathy that she had previously, possibly related to her diabetes. She has decreased standing balance and functional standing weakness of her LLE. She is not safe with ambulation without an assistive device. The pt's goal is to be able to walk with safely without her FWW, but using a cane instead. The pt has very good potential to improve her function and safety with gait. The pt will benefit from skilled phyiscal therapy to achieve the above stated goals. Physical Therapy Plan Frequency and Duration Frequency of Treatment 2x/Week Plan of Care Start Date 02/04/21 Plan of Care End Date 05/05/21 Therapeutic Interventions Therapeutic Interventions Aquatic Therapy,Balance Training,Coordination Training ,Gait Training,Home Exercise Program,Manual Therapy, Neuromuscular Re-education, Patient/Caregiver Education, Self-Care/Home Management,Soft Tissue Mobilization, Therapeutic Activities, Therapeutic Exercises Modalities Cold Pack/Ice Massage,Hot Packs Next Visit Focus/Plan Next Note Type Treatment Note Next Visit Plan Gait training, balance training, postural training, LLE (ankles, hips & ecc knee strengthening, proprioceptive/ coordination training, and progressioin on a HEP.
--- NOTE | 2021-02-04 17:08 | PT.OPPOC ---
Physical, Occupational & Speech Therapy At [facility] Current Diagnoses Muscle weakness (generalized) (02/04/21) Difficulty in walking, not elsewhere classified (02/04/21) Abnormal posture (02/04/21) Other symptoms and signs involving the nervous system (02/04/21) Visit Care Team Role Provider Type Sid Bush MD Attending Provider Physician Primary Care Provider Referring Provider Specialty: Internal Medicine Address: [address] [place] [address], [facility] [address], [place], [address] Email: [email or web address] Plan Of Care PT-OP-T Assessment and Plan Start: 01/31/21 17:56 Freq: Status: Active Protocol: Document 02/04/21 08:18 LRN (Rec: 02/04/21 09:07 LRN [id number]) Physical Therapy Assessment Rehab Potential Rehabilitation Potential Good Evaluation Complexity Number of Personal Factors/Comorbidities 1-2 Number of Body Systems Impaired 4 or More Clinical Presentation at Evaluation Evolving Impairments Impairments Activity Tolerance,Balance, Gait,Posture,Strength, Transfers Goals Four Impairment Decreased endurance (30 sec sit to stand - 9 reps; 5TSTS = 15.7 secs) Short Term Goal (STG) Improve 5TSTS TO 12.6 secs ( Norm for 80-89 yo is 14.8 sec' s) STG Duration 03/08/21 Fence Erector Supervisor Goal (LTG) Improve 30 sit to stand to 10- 15 reps (norm for ages 75-79 is 10-15 reps) LTG Duration 05/05/21 Three Impairment Decreased Balance per ARRIETA score of 18 (60<80% impaired) Short Term Goal (STG) Improve standing reach (5 or more safely), and ability to stand and look behind without loss of balance. STG Duration 03/22/21 Long-Term Goal (LTG) ARRIETA balance score of 34-44 ( 20<40% impaired) LTG Duration 05/05/21 Two Impairment Decreased gait with need of FWW for safety (Tinetti 13 = high fall risk) Short Term Goal (STG) Overall Tinetti score 23-27 (1 <20% impaired) or score 19-24 (medium fall risk, <14 high fall) risk). STG Duration 03/22/21 Long-Term Goal (LTG) Pt will be able to walk without a cane safely 100' or more. LTG Duration 05/05/21 One Impairment Lacks appropriate HEP. Short Term Goal (STG) Improve ABC score 41-60 (40<60 % impaired). Eval score is 10 .62. STG Duration 03/22/21 Long-Term Goal (LTG) Pt will be independent with a self care HEP to promote improving LE strength and balance. LTG Duration 05/05/21 Assessment Summary Assessment Pt is a 80 yo female who is ~ 14 months s/p R CVA with mild LE weakness, decreased sensation of feet due to neuropathy that she had previously, possibly related to her diabetes. She has decreased standing balance and functional standing weakness of her LLE. She is not safe with ambulation without an assistive device. The pt's goal is to be able to walk with safely without her FWW, but using a cane instead. The pt has very good potential to improve her function and safety with gait. The pt will benefit from skilled phyiscal therapy to achieve the above stated goals. Physical Therapy Plan Frequency and Duration Frequency of Treatment 2x/Week Plan of Care Start Date 02/04/21 Plan of Care End Date 05/05/21 Therapeutic Interventions Therapeutic Interventions Aquatic Therapy,Balance Training,Coordination Training ,Gait Training,Home Exercise Program,Manual Therapy, Neuromuscular Re-education, Patient/Caregiver Education, Self-Care/Home Management,Soft Tissue Mobilization, Therapeutic Activities, Therapeutic Exercises Modalities Cold Pack/Ice Massage,Hot Packs Next Visit Focus/Plan Next Note Type Treatment Note Next Visit Plan Gait training, balance training, postural training, LLE (ankles, hips & ecc knee strengthening, proprioceptive/ coordination training, and progressioin on a HEP. Plan of Care Dates Plan of Care Start Date 02/04/21 Plan of Care End Date 05/05/21 Electronically Signed by: Leanne Tucker, PT 02/04/21 [id number] Please Sign and Return: I have reviewed this Plan of Care and certify that the skilled therapy services above are required to meet the patient?s needs. Physician Signature Date Printed Name and Credentials Clinical Instructor Signature Printed Name and Credentials
--- NOTE | 2021-02-12 13:00 | PT.OTN ---
Current Diagnoses Muscle weakness (generalized) (02/12/21) Difficulty in walking, not elsewhere classified (02/12/21) Abnormal posture (02/12/21) Other symptoms and signs involving the nervous system (02/12/21) Physical Therapy Treatment Note PT-OP-A Visit Information Start: 01/31/21 17:56 Freq: Status: Active Protocol: Document 02/12/21 12:14 SP (Rec: 02/12/21 13:07 SP [id number]) Out-Patient Physical Therapy Visit Information Visit Information Visit Type Treatment Note Visit Start Time 12:15 Visit Stop Time 13:00 Total Visit Minutes 45 Visit Number 2 Number of USED CAR MANAGER Visits 1 Evaluation Information Evaluation Date 02/04/21 Precautions Precautions 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 PT-OP-B Current Condition Start: 01/31/21 17:56 Freq: Status: Active Protocol: Document 02/04/21 08:18 LRN (Rec: 02/04/21 09:07 LRN [id number]) Current Condition History of Current Condition Onset Date November 2019 Current Complaints Having to use walker to walk. 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 In hospital 3-4 days, transferred to [facility] in [place] (care home) and found PT to not be helpful, then home health care after 14 days of quarrentine after catching COVID. Had home health PT for 3 months. Now seeking outpatient PT independently. States she needs help walking without a walker. Have fallen a few times immediately after returning home, due to weak L leg. Doesn't have feeling in feet and has sharp pains in feet; therefore on Gabapentin. Uses topical CBD cream that helps a little. During the day and while walking around, no pain. Pain in feet is mainly at night when trying to go to sleep, or sitting watching TV. Prior Treatments and Tests Few years ago had PT for neuropathy. Has treadmill at home that she uses sometimes. Treatment Goals Patient/Caregiver Goals Pt goal is to be able to walk without a walker using a cane, improve endurance and balance and pt agreeable to being placed on a HEP at discharge. 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 Had to sit on bench to rest. Baseline Function- Other Up/down steps using 2 railings . Current Functional Impairments (Reported) Functional Limitations- ADL's Ambs around home occasioinally without walker (kitchen to living room, living room to laudry room and bathrrom). Walks on deck with FWW. Functional Limitations- Mobility/Gait Ambulates with FWW independently. 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 Can go up/down steps using 2 railings. Personal Factors Other Personal Factors That May Effect Neuropathy of the feet. Therapy/Recovery PT-OP-C Subjective Start: 01/31/21 17:56 Freq: Status: Active Protocol: Document 02/12/21 12:14 SP (Rec: 02/12/21 13:07 SP [id number]) OP-PT Subjective Patient Comments Patient Comments Pt stated is walking on TM 0.5 mph level 1x/day for 10 min. PT-OP-D Balance Start: 01/31/21 17:56 Freq: Status: Active Protocol: Document 02/04/21 08:18 LRN (Rec: 02/04/21 09:07 LRN [id number]) Arrieta Balance Assessment Evaluation Sitting to Standing Ability Independent w/out Hands Unsupported Stance 30 seconds Sitting Unsupported, Feet on Floor Safely- 2 minutes Standing to Sitting Ability Independent, Uncontrolled Transfer Ability Safely, Minimal Hand Use Unsupported Stance- Eyes Closed Falls Without Assistance Unsupported Stance- Eyes Open Assist to attain, 15 secs Reaching Forward Standing Safely, 2 inches Pick- Up Object From Floor Requires Assistance Look Behind Shoulder - Standing Assist to Prevent Fall Turning 360 Degrees Requires Assistance Unsupported Stance, Alternating Feet on Assist to Prevent Fall Stair Unsupported Tandem Stance Balance Lost- Step/Stand Unilateral Leg Stance Unable,assist to not fall Total Score Arrieta Total Score (out of 56 points) 18 Arrieta Impairment Rating 60 to 79% Impaired (Score 12- 22) Tinetti Balance Assessment Sitting Balance Sitting Balance Steady, safe Arising from Chair Ability to Arise Able, w/o using arms Attempts to Arise Arises on 1st attempt Standing Balance Immediate Standing Balance Unsteady Standing Balance Unsteady Nudged Response Begins to fall Standing with Eyes Closed Unsteady Turning Step Pattern Turning 360 Degrees Continuous steps Stability Turning 360 Degrees Unsteady, grabs/staggers Sitting Down Sitting Down Unsafe Gait and Step Initiation of Gait No hesitancy Right Foot Step Length Does not pass stance ft. Right Foot Step Height Completely clears floor Left Foot Step Length Does not pass stance foot Left Foot Step Height Completely clears floor Step Description Step Symmetry Step length not equal Step Continuity Steps appear continuous Gait Description Path Description Straight Trunk Description Marked sway or uses aide Walking Stance Heels together Scoring and Interpretation Tinetti Composite Score (points) 13 Interpretation of Scores High risk for falls(< 19) Tinetti Impairment Rating from Composite 40 to <60% Impaired (Score 12- Score 16) PT-OP-E Functional Tests Start: 01/31/21 17:56 Freq: Status: Active Protocol: Document 02/04/21 08:18 LRN (Rec: 02/04/21 09:07 LRN [id number]) Functional Tests 30 Second Sit to Stand Test Score 9x Other 5TSTS Name of Test 5TSTS Score 15.74 secs PT-OP-G Mobility & Gait Start: 01/31/21 17:56 Freq: Status: Active Protocol: Document 02/04/21 08:18 LRN (Rec: 02/04/21 09:07 LRN [id number]) OP Gait Assessment Gait Gait Assistance Required: Independent Distance (Feet) 100 Able to Maintain Weight Bearing Status Yes During Gait Assistive Devices Assistive Device Front Wheeled Walker Gait Deviations General Gait Pattern Decreased Stride Length,Flexed Trunk,Lateral Trunk Lean, Narrow Based Gait,Step-to Gait Factors Limiting Gait Function Factors Limiting Gait Function Decreased Activity Tolerance, Decreased Strength,Poor Balance PT-OP-J Posture/Palpation/Skin Start: 01/31/21 17:56 Freq: Status: Active Protocol: Document 02/04/21 08:18 LRN (Rec: 02/04/21 09:07 LRN [id number]) Posture Evaluation Position Standing Head/C-Spine Posture Forward Head T-Spine Posture Increased Kyphosis L-Spine Posture Flattened Shoulder Posture (L) Elevated Pelvis Posture Anteriorly Tilted,Posterior Tilted Weight Distribution Weight Shifted Right Knee Posture (L) Genu Valgus,(R) Genu Valgus Comments Posture Comments Foot deformity FB at hips ~35 deg's, L hip retracted. PT-OP-M Strength Start: 01/31/21 17:56 Freq: Status: Active Protocol: Document 02/04/21 08:18 LRN (Rec: 02/04/21 09:07 LRN [id number]) Hip Strength Hip Manual Muscle Testing Right Flexion (L2) 5 Normal Left Flexion (L2) 4 Good Knee Strength Knee Manual Muscle Testing Right Comments Generally 5/5 Left Comments Generally 5/5 Ankle/Foot Strength Ankle and Foot Manual Muscle Testing Right Comments Generally 5/5 Left Inversion 3 Fair Comments L foot deformity limiting IV mobility. PT-OP-Q Treatments Start: 01/31/21 17:56 Freq: Status: Active Protocol: Document 02/12/21 12:14 SP (Rec: 02/12/21 13:07 SP [id number]) Cardio Equipment Treadmill Duration (Minutes) 5 Speed 0.5>0.6pmh Incline 0 Other cued longer stride, knee extension, heel toe LLE Therapeutic Exercises Supine Exercises LAQ Side left Reps/Minutes 2x10 Comments cued L ankle ROM/ TB Supine Exercise Name PF, EV Side left Resistance AROM x10, TB #1 each Reps/Minutes 2 x10 reps Comments cued ball of foot contact floor during EV Gait Training Gait Activity gait w/ 4WW Device Used 4WW Level of Assistance S Surface firm Distance/Duration around clinic 170 ft Treatment Focus L knee extension, heel toe, body close, turns Comments cued not heavy WB UE on 4WW, lowered 4WW 2 notches w/ pivot feet and ease 4WW turns, good scap stab posture carry over from ex. cued . PT-OP-T Assessment and Plan Start: 01/31/21 17:56 Freq: Status: Active Protocol: Document 02/12/21 12:14 SP (Rec: 02/12/21 13:07 SP [id number]) Physical Therapy Assessment Goals Four Impairment Decreased endurance (30 sec sit to stand - 9 reps; 5TSTS = 15.7 secs) Short Term Goal (STG) Improve 5TSTS TO 12.6 secs ( Norm for 80-89 yo is 14.8 sec' s) STG Duration 03/08/21 Learning Technologies Specialist Goal (LTG) Improve 30 sit to stand to 10- 15 reps (norm for ages 75-79 is 10-15 reps) LTG Duration 05/05/21 Three Impairment Decreased Balance per ARRIETA score of 18 (60<80% impaired) Short Term Goal (STG) Improve standing reach (5 or more safely), and ability to stand and look behind without loss of balance. STG Duration 03/22/21 Half-Way Goal (LTG) ARRIETA balance score of 34-44 ( 20<40% impaired) LTG Duration 05/05/21 Two Impairment Decreased gait with need of FWW for safety (Tinetti 13 = high fall risk) Short Term Goal (STG) Overall Tinetti score 23-27 (1 <20% impaired) or score 19-24 (medium fall risk, <14 high fall) risk). STG Duration 03/22/21 Half-Way Goal (LTG) Pt will be able to walk without a cane safely 100' or more. LTG Duration 05/05/21 One Impairment Lacks appropriate HEP. Short Term Goal (STG) Improve ABC score 41-60 (40<60 % impaired). Eval score is 10 .62. STG Duration 03/22/21 Half-Way Goal (LTG) Pt will be independent with a self care HEP to promote improving LE strength and balance. 02/12/21 HEP: ankle PF&EV TB, LAQ, scap squeeze, seated posture, heel toe walking. LTG Duration 05/05/21 Assessment Summary Assessment Pt requried mod cues for posure, L knee flexion, heel toe, body closure to 4WW and slow pivot feet with ease 4WW turn. Initiated seated ther ex to improve mechanics of LLE during gait. See goal #1 HEP. Pt improved with quality gait leaving. Physical Therapy Plan Frequency and Duration Frequency of Treatment 2x/Week Plan of Care Start Date 02/04/21 Plan of Care End Date 05/05/21 Therapeutic Interventions Therapeutic Interventions Aquatic Therapy,Balance Training,Coordination Training ,Gait Training,Home Exercise Program,Manual Therapy, Neuromuscular Re-education, Patient/Caregiver Education, Self-Care/Home Management,Soft Tissue Mobilization, Therapeutic Activities, Therapeutic Exercises Modalities Cold Pack/Ice Massage,Hot Packs Next Visit Focus/Plan Next Note Type Treatment Note Next Visit Plan Assess response TM, gait, seated HEP. Continue per PT POC: Gait training, balance training, postural training, LLE (ankles , hips & ecc knee strengthening, proprioceptive/ coordination training, and progressioin on a HEP.
--- NOTE | 2021-02-12 13:00 | PT.OTN ---
Current Diagnoses Muscle weakness (generalized) (02/12/21) Difficulty in walking, not elsewhere classified (02/12/21) Abnormal posture (02/12/21) Other symptoms and signs involving the nervous system (02/12/21) Physical Therapy Treatment Note PT-OP-A Visit Information Start: 01/31/21 17:56 Freq: Status: Active Protocol: Document 02/12/21 12:14 SP (Rec: 02/12/21 13:07 SP [id number]) Out-Patient Physical Therapy Visit Information Visit Information Visit Type Treatment Note Visit Start Time 12:15 Visit Stop Time 13:00 Total Visit Minutes 45 Visit Number 2 Number of AIR CONDITIONING UNIT TESTER Visits 1 Evaluation Information Evaluation Date 02/04/21 Precautions Precautions 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 PT-OP-B Current Condition Start: 01/31/21 17:56 Freq: Status: Active Protocol: Document 02/04/21 08:18 LRN (Rec: 02/04/21 09:07 LRN [id number]) Current Condition History of Current Condition Onset Date November 2019 Current Complaints Having to use walker to walk. 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 In hospital 3-4 days, transferred to [facility] in [place] (skilled nursing) and found PT to not be helpful, then home health care after 14 days of quarrentine after catching COVID. Had home health PT for 3 months. Now seeking outpatient PT independently. States she needs help walking without a walker. Have fallen a few times immediately after returning home, due to weak L leg. Doesn't have feeling in feet and has sharp pains in feet; therefore on Gabapentin. Uses topical CBD cream that helps a little. During the day and while walking around, no pain. Pain in feet is mainly at night when trying to go to sleep, or sitting watching TV. Prior Treatments and Tests Few years ago had PT for neuropathy. Has treadmill at home that she uses sometimes. Treatment Goals Patient/Caregiver Goals Pt goal is to be able to walk without a walker using a cane, improve endurance and balance and pt agreeable to being placed on a HEP at discharge. 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 Had to sit on bench to rest. Baseline Function- Other Up/down steps using 2 railings . Current Functional Impairments (Reported) Functional Limitations- ADL's Ambs around home occasioinally without walker (kitchen to living room, living room to laudry room and bathrrom). Walks on deck with FWW. Functional Limitations- Mobility/Gait Ambulates with FWW independently. 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 Can go up/down steps using 2 railings. Personal Factors Other Personal Factors That May Effect Neuropathy of the feet. Therapy/Recovery PT-OP-C Subjective Start: 01/31/21 17:56 Freq: Status: Active Protocol: Document 02/12/21 12:14 SP (Rec: 02/12/21 13:07 SP [id number]) OP-PT Subjective Patient Comments Patient Comments Pt stated is walking on TM 0.5 mph level 1x/day for 10 min. PT-OP-D Balance Start: 01/31/21 17:56 Freq: Status: Active Protocol: Document 02/04/21 08:18 LRN (Rec: 02/04/21 09:07 LRN [id number]) Arrieta Balance Assessment Evaluation Sitting to Standing Ability Independent w/out Hands Unsupported Stance 30 seconds Sitting Unsupported, Feet on Floor Safely- 2 minutes Standing to Sitting Ability Independent, Uncontrolled Transfer Ability Safely, Minimal Hand Use Unsupported Stance- Eyes Closed Falls Without Assistance Unsupported Stance- Eyes Open Assist to attain, 15 secs Reaching Forward Standing Safely, 2 inches Pick- Up Object From Floor Requires Assistance Look Behind Shoulder - Standing Assist to Prevent Fall Turning 360 Degrees Requires Assistance Unsupported Stance, Alternating Feet on Assist to Prevent Fall Stair Unsupported Tandem Stance Balance Lost- Step/Stand Unilateral Leg Stance Unable,assist to not fall Total Score Arrieta Total Score (out of 56 points) 18 Arrieta Impairment Rating 60 to 79% Impaired (Score 12- 22) Tinetti Balance Assessment Sitting Balance Sitting Balance Steady, safe Arising from Chair Ability to Arise Able, w/o using arms Attempts to Arise Arises on 1st attempt Standing Balance Immediate Standing Balance Unsteady Standing Balance Unsteady Nudged Response Begins to fall Standing with Eyes Closed Unsteady Turning Step Pattern Turning 360 Degrees Continuous steps Stability Turning 360 Degrees Unsteady, grabs/staggers Sitting Down Sitting Down Unsafe Gait and Step Initiation of Gait No hesitancy Right Foot Step Length Does not pass stance ft. Right Foot Step Height Completely clears floor Left Foot Step Length Does not pass stance foot Left Foot Step Height Completely clears floor Step Description Step Symmetry Step length not equal Step Continuity Steps appear continuous Gait Description Path Description Straight Trunk Description Marked sway or uses aide Walking Stance Heels together Scoring and Interpretation Tinetti Composite Score (points) 13 Interpretation of Scores High risk for falls(< 19) Tinetti Impairment Rating from Composite 40 to <60% Impaired (Score 12- Score 16) PT-OP-E Functional Tests Start: 01/31/21 17:56 Freq: Status: Active Protocol: Document 02/04/21 08:18 LRN (Rec: 02/04/21 09:07 LRN [id number]) Functional Tests 30 Second Sit to Stand Test Score 9x Other 5TSTS Name of Test 5TSTS Score 15.74 secs PT-OP-G Mobility & Gait Start: 01/31/21 17:56 Freq: Status: Active Protocol: Document 02/04/21 08:18 LRN (Rec: 02/04/21 09:07 LRN [id number]) OP Gait Assessment Gait Gait Assistance Required: Independent Distance (Feet) 100 Able to Maintain Weight Bearing Status Yes During Gait Assistive Devices Assistive Device Front Wheeled Walker Gait Deviations General Gait Pattern Decreased Stride Length,Flexed Trunk,Lateral Trunk Lean, Narrow Based Gait,Step-to Gait Factors Limiting Gait Function Factors Limiting Gait Function Decreased Activity Tolerance, Decreased Strength,Poor Balance PT-OP-J Posture/Palpation/Skin Start: 01/31/21 17:56 Freq: Status: Active Protocol: Document 02/04/21 08:18 LRN (Rec: 02/04/21 09:07 LRN [id number]) Posture Evaluation Position Standing Head/C-Spine Posture Forward Head T-Spine Posture Increased Kyphosis L-Spine Posture Flattened Shoulder Posture (L) Elevated Pelvis Posture Anteriorly Tilted,Posterior Tilted Weight Distribution Weight Shifted Right Knee Posture (L) Genu Valgus,(R) Genu Valgus Comments Posture Comments Foot deformity FB at hips ~35 deg's, L hip retracted. PT-OP-M Strength Start: 01/31/21 17:56 Freq: Status: Active Protocol: Document 02/04/21 08:18 LRN (Rec: 02/04/21 09:07 LRN [id number]) Hip Strength Hip Manual Muscle Testing Right Flexion (L2) 5 Normal Left Flexion (L2) 4 Good Knee Strength Knee Manual Muscle Testing Right Comments Generally 5/5 Left Comments Generally 5/5 Ankle/Foot Strength Ankle and Foot Manual Muscle Testing Right Comments Generally 5/5 Left Inversion 3 Fair Comments L foot deformity limiting IV mobility. PT-OP-Q Treatments Start: 01/31/21 17:56 Freq: Status: Active Protocol: Document 02/12/21 12:14 SP (Rec: 02/12/21 13:07 SP [id number]) Cardio Equipment Treadmill Duration (Minutes) 5 Speed 0.5>0.6pmh Incline 0 Other cued longer stride, knee extension, heel toe LLE Therapeutic Exercises Supine Exercises LAQ Side left Reps/Minutes 2x10 Comments cued L ankle ROM/ TB Supine Exercise Name PF, EV Side left Resistance AROM x10, TB #1 each Reps/Minutes 2 x10 reps Comments cued ball of foot contact floor during EV Sitting Exercises Self STMs Sitting Exercise Name R quad more proximal, calf Side right Equipment Used rolling stick Reps/Minutes 1 min total Comments good response feedback Gait Training Gait Activity gait w/ 4WW Device Used 4WW Level of Assistance S Surface firm Distance/Duration around clinic 170 ft Treatment Focus L knee extension, heel toe, body close, turns Comments cued not heavy WB UE on 4WW, lowered 4WW 2 notches w/ pivot feet and ease 4WW turns, good scap stab posture carry over from ex. cued . PT-OP-T Assessment and Plan Start: 01/31/21 17:56 Freq: Status: Active Protocol: Document 02/12/21 12:14 SP (Rec: 02/12/21 13:07 SP [id number]) Physical Therapy Assessment Goals Four Impairment Decreased endurance (30 sec sit to stand - 9 reps; 5TSTS = 15.7 secs) Short Term Goal (STG) Improve 5TSTS TO 12.6 secs ( Norm for 80-89 yo is 14.8 sec' s) STG Duration 03/08/21 Retirement Goal (LTG) Improve 30 sit to stand to 10- 15 reps (norm for ages 75-79 is 10-15 reps) LTG Duration 05/05/21 Three Impairment Decreased Balance per ARRIETA score of 18 (60<80% impaired) Short Term Goal (STG) Improve standing reach (5 or more safely), and ability to stand and look behind without loss of balance. STG Duration 03/22/21 Retirement Goal (LTG) ARRIETA balance score of 34-44 ( 20<40% impaired) LTG Duration 05/05/21 Two Impairment Decreased gait with need of FWW for safety (Tinetti 13 = high fall risk) Short Term Goal (STG) Overall Tinetti score 23-27 (1 <20% impaired) or score 19-24 (medium fall risk, <14 high fall) risk). STG Duration 03/22/21 Retirement Goal (LTG) Pt will be able to walk without a cane safely 100' or more. LTG Duration 05/05/21 One Impairment Lacks appropriate HEP. Short Term Goal (STG) Improve ABC score 41-60 (40<60 % impaired). Eval score is 10 .62. STG Duration 03/22/21 Bid Clerk Goal (LTG) Pt will be independent with a self care HEP to promote improving LE strength and balance. 02/12/21 HEP: ankle PF&EV TB, LAQ, scap squeeze, seated posture, heel toe walking. LTG Duration 05/05/21 Assessment Summary Assessment Pt requried mod cues for posure, L knee flexion, heel toe, body closure to 4WW and slow pivot feet with ease 4WW turn. Initiated seated ther ex to improve mechanics of LLE during gait. See goal #1 HEP. Pt improved with quality gait leaving. Physical Therapy Plan Frequency and Duration Frequency of Treatment 2x/Week Plan of Care Start Date 02/04/21 Plan of Care End Date 05/05/21 Therapeutic Interventions Therapeutic Interventions Aquatic Therapy,Balance Training,Coordination Training ,Gait Training,Home Exercise Program,Manual Therapy, Neuromuscular Re-education, Patient/Caregiver Education, Self-Care/Home Management,Soft Tissue Mobilization, Therapeutic Activities, Therapeutic Exercises Modalities Cold Pack/Ice Massage,Hot Packs Next Visit Focus/Plan Next Note Type Treatment Note Next Visit Plan Assess response TM, gait, seated HEP. Continue per PT POC: Gait training, balance training, postural training, LLE (ankles , hips & ecc knee strengthening, proprioceptive/ coordination training, and progressioin on a HEP.
--- NOTE | 2021-02-15 13:47 | PT.OTN ---
Current Diagnoses Muscle weakness (generalized) (02/15/21) Difficulty in walking, not elsewhere classified (02/15/21) Abnormal posture (02/15/21) Other symptoms and signs involving the nervous system (02/15/21) Physical Therapy Treatment Note PT-OP-A Visit Information Start: 01/31/21 17:56 Freq: Status: Active Protocol: Document 02/15/21 13:04 SP (Rec: 02/15/21 16:14 SP [id number]) Out-Patient Physical Therapy Visit Information Visit Information Visit Type Treatment Note Visit Start Time 13:04 Visit Stop Time 13:47 Total Visit Minutes 43 Visit Number 3 Number of ANODE WORKER Visits 2 Evaluation Information Evaluation Date 02/04/21 Precautions Precautions 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 PT-OP-B Current Condition Start: 01/31/21 17:56 Freq: Status: Active Protocol: Document 02/04/21 08:18 LRN (Rec: 02/04/21 09:07 LRN [id number]) Current Condition History of Current Condition Onset Date November 2019 Current Complaints Having to use walker to walk. 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 In hospital 3-4 days, transferred to [facility] in [place] (halfway) and found PT to not be helpful, then home health care after 14 days of quarrentine after catching COVID. Had home health PT for 3 months. Now seeking outpatient PT independently. States she needs help walking without a walker. Have fallen a few times immediately after returning home, due to weak L leg. Doesn't have feeling in feet and has sharp pains in feet; therefore on Gabapentin. Uses topical CBD cream that helps a little. During the day and while walking around, no pain. Pain in feet is mainly at night when trying to go to sleep, or sitting watching TV. Prior Treatments and Tests Few years ago had PT for neuropathy. Has treadmill at home that she uses sometimes. Treatment Goals Patient/Caregiver Goals Pt goal is to be able to walk without a walker using a cane, improve endurance and balance and pt agreeable to being placed on a HEP at discharge. 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 Had to sit on bench to rest. Baseline Function- Other Up/down steps using 2 railings . Current Functional Impairments (Reported) Functional Limitations- ADL's Ambs around home occasioinally without walker (kitchen to living room, living room to laudry room and bathrrom). Walks on deck with FWW. Functional Limitations- Mobility/Gait Ambulates with FWW independently. 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 Can go up/down steps using 2 railings. Personal Factors Other Personal Factors That May Effect Neuropathy of the feet. Therapy/Recovery PT-OP-C Subjective Start: 01/31/21 17:56 Freq: Status: Active Protocol: Document 02/15/21 13:04 SP (Rec: 02/15/21 16:14 SP [id number]) OP-PT Subjective Patient Comments Patient Comments Pt stated doing well the exercises. Have been busy with son visiting in town going out for dinner and feel walking better from suggestions. PT-OP-D Balance Start: 01/31/21 17:56 Freq: Status: Active Protocol: Document 02/04/21 08:18 LRN (Rec: 02/04/21 09:07 LRN [id number]) Arrieta Balance Assessment Evaluation Sitting to Standing Ability Independent w/out Hands Unsupported Stance 30 seconds Sitting Unsupported, Feet on Floor Safely- 2 minutes Standing to Sitting Ability Independent, Uncontrolled Transfer Ability Safely, Minimal Hand Use Unsupported Stance- Eyes Closed Falls Without Assistance Unsupported Stance- Eyes Open Assist to attain, 15 secs Reaching Forward Standing Safely, 2 inches Pick- Up Object From Floor Requires Assistance Look Behind Shoulder - Standing Assist to Prevent Fall Turning 360 Degrees Requires Assistance Unsupported Stance, Alternating Feet on Assist to Prevent Fall Stair Unsupported Tandem Stance Balance Lost- Step/Stand Unilateral Leg Stance Unable,assist to not fall Total Score Arrieta Total Score (out of 56 points) 18 Arrieta Impairment Rating 60 to 79% Impaired (Score 12- 22) Tinetti Balance Assessment Sitting Balance Sitting Balance Steady, safe Arising from Chair Ability to Arise Able, w/o using arms Attempts to Arise Arises on 1st attempt Standing Balance Immediate Standing Balance Unsteady Standing Balance Unsteady Nudged Response Begins to fall Standing with Eyes Closed Unsteady Turning Step Pattern Turning 360 Degrees Continuous steps Stability Turning 360 Degrees Unsteady, grabs/staggers Sitting Down Sitting Down Unsafe Gait and Step Initiation of Gait No hesitancy Right Foot Step Length Does not pass stance ft. Right Foot Step Height Completely clears floor Left Foot Step Length Does not pass stance foot Left Foot Step Height Completely clears floor Step Description Step Symmetry Step length not equal Step Continuity Steps appear continuous Gait Description Path Description Straight Trunk Description Marked sway or uses aide Walking Stance Heels together Scoring and Interpretation Tinetti Composite Score (points) 13 Interpretation of Scores High risk for falls(< 19) Tinetti Impairment Rating from Composite 40 to <60% Impaired (Score 12- Score 16) PT-OP-E Functional Tests Start: 01/31/21 17:56 Freq: Status: Active Protocol: Document 02/04/21 08:18 LRN (Rec: 02/04/21 09:07 LRN [id number]) Functional Tests 30 Second Sit to Stand Test Score 9x Other 5TSTS Name of Test 5TSTS Score 15.74 secs PT-OP-G Mobility & Gait Start: 01/31/21 17:56 Freq: Status: Active Protocol: Document 02/04/21 08:18 LRN (Rec: 02/04/21 09:07 LRN [id number]) OP Gait Assessment Gait Gait Assistance Required: Independent Distance (Feet) 100 Able to Maintain Weight Bearing Status Yes During Gait Assistive Devices Assistive Device Front Wheeled Walker Gait Deviations General Gait Pattern Decreased Stride Length,Flexed Trunk,Lateral Trunk Lean, Narrow Based Gait,Step-to Gait Factors Limiting Gait Function Factors Limiting Gait Function Decreased Activity Tolerance, Decreased Strength,Poor Balance PT-OP-J Posture/Palpation/Skin Start: 01/31/21 17:56 Freq: Status: Active Protocol: Document 02/04/21 08:18 LRN (Rec: 02/04/21 09:07 LRN [id number]) Posture Evaluation Position Standing Head/C-Spine Posture Forward Head T-Spine Posture Increased Kyphosis L-Spine Posture Flattened Shoulder Posture (L) Elevated Pelvis Posture Anteriorly Tilted,Posterior Tilted Weight Distribution Weight Shifted Right Knee Posture (L) Genu Valgus,(R) Genu Valgus Comments Posture Comments Foot deformity FB at hips ~35 deg's, L hip retracted. PT-OP-M Strength Start: 01/31/21 17:56 Freq: Status: Active Protocol: Document 02/04/21 08:18 LRN (Rec: 02/04/21 09:07 LRN [id number]) Hip Strength Hip Manual Muscle Testing Right Flexion (L2) 5 Normal Left Flexion (L2) 4 Good Knee Strength Knee Manual Muscle Testing Right Comments Generally 5/5 Left Comments Generally 5/5 Ankle/Foot Strength Ankle and Foot Manual Muscle Testing Right Comments Generally 5/5 Left Inversion 3 Fair Comments L foot deformity limiting IV mobility. PT-OP-Q Treatments Start: 01/31/21 17:56 Freq: Status: Active Protocol: Document 02/15/21 13:04 SP (Rec: 02/15/21 16:14 SP [id number]) Cardio Equipment Treadmill Duration (Minutes) 6 Speed 0.6>0.7pmh, .8 miles Incline 0 (1-2 Ue contact) Other cued longer stride, knee extension, heel toe LLE Therapeutic Exercises Supine Exercises LAQ Side left Reps/Minutes 2x10 Comments cued L ankle ROM/ TB Supine Exercise Name PF, EV Side left Resistance AROM x10, TB #1 each Reps/Minutes 2 x10 reps Comments cued heel of foot contact floor during EV Sitting Exercises sitting posture Sitting Exercise Name w/ shld ER Resistance Tb #2 Reps/Minutes 2x5 reps Comments cued tall posture, elbow at side, CS tall neutral Self STMs Sitting Exercise Name R quad more proximal, calf Side right Equipment Used rolling stick Reps/Minutes 1 min total Comments good response feedback- roll and rocking Neuro Re-Education Treatment Balance Activities corner balance Details NBOS Surface Firm Equipment wall back, 4 WW front (in corner next tx) Comments stationary head turns CGA dmitriy stepping Details forward w/ 1 HR Equipment 6 hurdles Reps/Duration 10 ft x2 laps Comments cued tall posure heel toe, downward pressure for increase trunk stability work CGA single dmitriy stepping Details over back, knee ext/ heel toe Surface firm Equipment 1 dmitriy Reps/Duration x5 reps R and L Self-Care/Home Management Treatment Education Patient Education Body Mechanics,Home Exercise Program,Posture Other Education Initiated postural sitting with shld scap retraction ER TB added to HEP and mechanics LLE heel toe and knee extension w/ balance component with good improved in mobility and stability as laps progressed. PT-OP-T Assessment and Plan Start: 01/31/21 17:56 Freq: Status: Active Protocol: Document 02/15/21 13:04 SP (Rec: 02/15/21 16:14 SP [id number]) Physical Therapy Assessment Goals Four Impairment Decreased endurance (30 sec sit to stand - 9 reps; 5TSTS = 15.7 secs) Short Term Goal (STG) Improve 5TSTS TO 12.6 secs ( Norm for 80-89 yo is 14.8 sec' s) STG Duration 03/08/21 Documentum Consultant Goal (LTG) Improve 30 sit to stand to 10- 15 reps (norm for ages 75-79 is 10-15 reps) LTG Duration 05/05/21 Three Impairment Decreased Balance per ARRIETA score of 18 (60<80% impaired) Short Term Goal (STG) Improve standing reach (5 or more safely), and ability to stand and look behind without loss of balance. STG Duration 03/22/21 Documentum Consultant Goal (LTG) ARRIETA balance score of 34-44 ( 20<40% impaired) LTG Duration 05/05/21 Two Impairment Decreased gait with need of FWW for safety (Tinetti 13 = high fall risk) Short Term Goal (STG) Overall Tinetti score 23-27 (1 <20% impaired) or score 19-24 (medium fall risk, <14 high fall) risk). STG Duration 03/22/21 Mcfp Goal (LTG) Pt will be able to walk without a cane safely 100' or more. LTG Duration 05/05/21 One Impairment Lacks appropriate HEP. Short Term Goal (STG) Improve ABC score 41-60 (40<60 % impaired). Eval score is 10 .62. STG Duration 03/22/21 Mcfp Goal (LTG) Pt will be independent with a self care HEP to promote improving LE strength and balance. 02/15/21 HEP: ankle PF&EV TB, LAQ, posture scap squeeze w/ shld ER TB, heel toe walking, self STMs to calf/quad/HS. LTG Duration 05/05/21 Assessment Summary Assessment Pt demontrating improved upright posture L knee extension during gait contact w/4WW upon arrival, requires cuing during TM walking on mechanics of heel toe. Tx focused on HEP review cued for set up PF and EV TB good self corrections heel suported on floor. Good carryover w/seated posture initiation w/ shld ER TB strengthening. Intiated knee extension and heel toe balance during dmitriy stepping and improved self awareness w / mechanics walking out of tx today. Physical Therapy Plan Frequency and Duration Frequency of Treatment 2x/Week Plan of Care Start Date 02/04/21 Plan of Care End Date 05/05/21 Therapeutic Interventions Therapeutic Interventions Aquatic Therapy,Balance Training,Coordination Training ,Gait Training,Home Exercise Program,Manual Therapy, Neuromuscular Re-education, Patient/Caregiver Education, Self-Care/Home Management,Soft Tissue Mobilization, Therapeutic Activities, Therapeutic Exercises Modalities Cold Pack/Ice Massage,Hot Packs Next Visit Focus/Plan Next Note Type Treatment Note Next Visit Plan Assess response TM, gait, seated HEP, pregait knee extension/heel toe mechanics usign dmitriy. Continue per PT POC: Gait training, balance training, postural training, LLE (ankles , hips & ecc knee strengthening, proprioceptive/ coordination training, and progressioin on a HEP.
--- NOTE | 2021-02-19 13:48 | PT.OTN ---
Current Diagnoses Muscle weakness (generalized) (02/19/21) Difficulty in walking, not elsewhere classified (02/19/21) Abnormal posture (02/19/21) Other symptoms and signs involving the nervous system (02/19/21) Physical Therapy Treatment Note PT-OP-A Visit Information Start: 01/31/21 17:56 Freq: Status: Active Protocol: Document 02/19/21 13:00 SP (Rec: 02/19/21 16:03 SP [id number]) Out-Patient Physical Therapy Visit Information Visit Information Visit Type Treatment Note Visit Note 1 more visit then pt has 5th visit with another PT. 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 PT-OP-B Current Condition Start: 01/31/21 17:56 Freq: Status: Active Protocol: Document 02/04/21 08:18 LRN (Rec: 02/04/21 09:07 LRN [id number]) Current Condition History of Current Condition Onset Date November 2019 Current Complaints Having to use walker to walk. 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 In hospital 3-4 days, transferred to [facility] in [place] (fdc) and found PT to not be helpful, then home health care after 14 days of quarrentine after catching COVID. Had home health PT for 3 months. Now seeking outpatient PT independently. States she needs help walking without a walker. Have fallen a few times immediately after returning home, due to weak L leg. Doesn't have feeling in feet and has sharp pains in feet; therefore on Gabapentin. Uses topical CBD cream that helps a little. During the day and while walking around, no pain. Pain in feet is mainly at night when trying to go to sleep, or sitting watching TV. Prior Treatments and Tests Few years ago had PT for neuropathy. Has treadmill at home that she uses sometimes. Treatment Goals Patient/Caregiver Goals Pt goal is to be able to walk without a walker using a cane, improve endurance and balance and pt agreeable to being placed on a HEP at discharge. 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 Had to sit on bench to rest. Baseline Function- Other Up/down steps using 2 railings . Current Functional Impairments (Reported) Functional Limitations- ADL's Ambs around home occasioinally without walker (kitchen to living room, living room to laudry room and bathrrom). Walks on deck with FWW. Functional Limitations- Mobility/Gait Ambulates with FWW independently. 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 Can go up/down steps using 2 railings. Personal Factors Other Personal Factors That May Effect Neuropathy of the feet. Therapy/Recovery PT-OP-C Subjective Start: 01/31/21 17:56 Freq: Status: Active Protocol: Document 02/19/21 13:00 SP (Rec: 02/19/21 16:03 SP [id number]) OP-PT Subjective Patient Comments Patient Comments Pt stated was busy with son's visit. She stated wasnt' compliant with HEP due to company but did alot of walking downtown though. PT-OP-D Balance Start: 01/31/21 17:56 Freq: Status: Active Protocol: Document 02/04/21 08:18 LRN (Rec: 02/04/21 09:07 LRN [id number]) Arrieta Balance Assessment Evaluation Sitting to Standing Ability Independent w/out Hands Unsupported Stance 30 seconds Sitting Unsupported, Feet on Floor Safely- 2 minutes Standing to Sitting Ability Independent, Uncontrolled Transfer Ability Safely, Minimal Hand Use Unsupported Stance- Eyes Closed Falls Without Assistance Unsupported Stance- Eyes Open Assist to attain, 15 secs Reaching Forward Standing Safely, 2 inches Pick- Up Object From Floor Requires Assistance Look Behind Shoulder - Standing Assist to Prevent Fall Turning 360 Degrees Requires Assistance Unsupported Stance, Alternating Feet on Assist to Prevent Fall Stair Unsupported Tandem Stance Balance Lost- Step/Stand Unilateral Leg Stance Unable,assist to not fall Total Score Arrieta Total Score (out of 56 points) 18 Arrieta Impairment Rating 60 to 79% Impaired (Score 12- 22) Tinetti Balance Assessment Sitting Balance Sitting Balance Steady, safe Arising from Chair Ability to Arise Able, w/o using arms Attempts to Arise Arises on 1st attempt Standing Balance Immediate Standing Balance Unsteady Standing Balance Unsteady Nudged Response Begins to fall Standing with Eyes Closed Unsteady Turning Step Pattern Turning 360 Degrees Continuous steps Stability Turning 360 Degrees Unsteady, grabs/staggers Sitting Down Sitting Down Unsafe Gait and Step Initiation of Gait No hesitancy Right Foot Step Length Does not pass stance ft. Right Foot Step Height Completely clears floor Left Foot Step Length Does not pass stance foot Left Foot Step Height Completely clears floor Step Description Step Symmetry Step length not equal Step Continuity Steps appear continuous Gait Description Path Description Straight Trunk Description Marked sway or uses aide Walking Stance Heels together Scoring and Interpretation Tinetti Composite Score (points) 13 Interpretation of Scores High risk for falls(< 19) Tinetti Impairment Rating from Composite 40 to <60% Impaired (Score 12- Score 16) PT-OP-E Functional Tests Start: 01/31/21 17:56 Freq: Status: Active Protocol: Document 02/04/21 08:18 LRN (Rec: 02/04/21 09:07 LRN [id number]) Functional Tests 30 Second Sit to Stand Test Score 9x Other 5TSTS Name of Test 5TSTS Score 15.74 secs PT-OP-G Mobility & Gait Start: 01/31/21 17:56 Freq: Status: Active Protocol: Document 02/04/21 08:18 LRN (Rec: 02/04/21 09:07 LRN [id number]) OP Gait Assessment Gait Gait Assistance Required: Independent Distance (Feet) 100 Able to Maintain Weight Bearing Status Yes During Gait Assistive Devices Assistive Device Front Wheeled Walker Gait Deviations General Gait Pattern Decreased Stride Length,Flexed Trunk,Lateral Trunk Lean, Narrow Based Gait,Step-to Gait Factors Limiting Gait Function Factors Limiting Gait Function Decreased Activity Tolerance, Decreased Strength,Poor Balance PT-OP-J Posture/Palpation/Skin Start: 01/31/21 17:56 Freq: Status: Active Protocol: Document 02/04/21 08:18 LRN (Rec: 02/04/21 09:07 LRN [id number]) Posture Evaluation Position Standing Head/C-Spine Posture Forward Head T-Spine Posture Increased Kyphosis L-Spine Posture Flattened Shoulder Posture (L) Elevated Pelvis Posture Anteriorly Tilted,Posterior Tilted Weight Distribution Weight Shifted Right Knee Posture (L) Genu Valgus,(R) Genu Valgus Comments Posture Comments Foot deformity FB at hips ~35 deg's, L hip retracted. PT-OP-M Strength Start: 01/31/21 17:56 Freq: Status: Active Protocol: Document 02/04/21 08:18 LRN (Rec: 02/04/21 09:07 LRN [id number]) Hip Strength Hip Manual Muscle Testing Right Flexion (L2) 5 Normal Left Flexion (L2) 4 Good Knee Strength Knee Manual Muscle Testing Right Comments Generally 5/5 Left Comments Generally 5/5 Ankle/Foot Strength Ankle and Foot Manual Muscle Testing Right Comments Generally 5/5 Left Inversion 3 Fair Comments L foot deformity limiting IV mobility. PT-OP-Q Treatments Start: 01/31/21 17:56 Freq: Status: Active Protocol: Document 02/19/21 13:00 SP (Rec: 02/19/21 16:03 SP [id number]) Cardio Equipment Treadmill Duration (Minutes) 6 Speed 0.7pmh, .8 miles Incline 0 (1-2 Ue contact) Other intermittent cuing longer stride, knee extension, heel toe LLE Therapeutic Exercises Supine Exercises hip abd Supine Exercise Name added to HEP Side bilateral Reps/Minutes x10 each Comments cued quad facilitation, PF ankle posiitoning SLR Supine Exercise Name added to HEP Side left Reps/Minutes 2x8 Comments cued quad facilitation, PF ankle posiitoning Prone Exercises eccentric knee flexion Prone Exercise Name alternate BLE Side left Reps/Minutes 8 reps each LE Comments cued slow knee extension from flexion but challenging for prone breath stop Sitting Exercises LAQ Sitting Exercise Name review HEP Side left Reps/Minutes 2x10 Comments cued PF, slow pacing L ankle ROM/ TB Sitting Exercise Name PF, EV- Review HEP Side left Resistance AROM x10, TB #1 each Reps/Minutes 2 x10 reps Comments cued heel of foot contact floor during EV Manual Therapy Treatment Soft Tissue Mobilization STMs to Body Location tib anterior, peroneals, calf Mobilization Type Strumming,Sustained Pressure, Other Intensity/Depth Moderate Body Position Supine Comments sustained pressure with PROM ankle into PF Joint Mobilizations MTPs Joint L 1-4 MTPs Direction AP, supination/ pronation together Grade II Body Position Supine talocrual jt Joint L ankle Direction AP Grade II Body Position Supine Neuro Re-Education Treatment Balance Activities corner balance Details NBOS Surface Firm Equipment back to corner, 4 WW front Comments stationary head turns SBA PT-OP-T Assessment and Plan Start: 01/31/21 17:56 Freq: Status: Active Protocol: Document 02/19/21 13:00 SP (Rec: 02/19/21 16:03 SP [id number]) Physical Therapy Assessment Goals Four Impairment Decreased endurance (30 sec sit to stand - 9 reps; 5TSTS = 15.7 secs) Short Term Goal (STG) Improve 5TSTS TO 12.6 secs ( Norm for 80-89 yo is 14.8 sec' s) STG Duration 03/08/21 Usp Goal (LTG) Improve 30 sit to stand to 10- 15 reps (norm for ages 75-79 is 10-15 reps) LTG Duration 05/05/21 Three Impairment Decreased Balance per ARRIETA score of 18 (60<80% impaired) Short Term Goal (STG) Improve standing reach (5 or more safely), and ability to stand and look behind without loss of balance. STG Duration 03/22/21 Usp Goal (LTG) ARRIETA balance score of 34-44 ( 20<40% impaired) LTG Duration 05/05/21 Two Impairment Decreased gait with need of FWW for safety (Tinetti 13 = high fall risk) Short Term Goal (STG) Overall Tinetti score 23-27 (1 <20% impaired) or score 19-24 (medium fall risk, <14 high fall) risk). STG Duration 03/22/21 Senior Research Manager Goal (LTG) Pt will be able to walk without a cane safely 100' or more. LTG Duration 05/05/21 One Impairment Lacks appropriate HEP. Short Term Goal (STG) Improve ABC score 41-60 (40<60 % impaired). Eval score is 10 .62. STG Duration 03/22/21 Senior Research Manager Goal (LTG) Pt will be independent with a self care HEP to promote improving LE strength and balance. 02/15/21 HEP: ankle PF&EV TB, LAQ, posture scap squeeze w/ shld ER TB, heel toe walking, self STMs to calf/quad/HS. LTG Duration 05/05/21 Assessment Summary Assessment Tx focused on HEP review, ankle PF and knee extension ROM then corner balance with alignment cuing with noted improved knee extension and ankle mobility to assist. Pt improved heel toe descent ROM post manual and standing activities today. initiated supine SLR and hip abd with PF of ankles with mod cuing to provide carryover knee ext pre standing in am prep. Physical Therapy Plan Frequency and Duration Frequency of Treatment 2x/Week Plan of Care Start Date 02/04/21 Plan of Care End Date 05/05/21 Therapeutic Interventions Therapeutic Interventions Aquatic Therapy,Balance Training,Coordination Training ,Gait Training,Home Exercise Program,Manual Therapy, Neuromuscular Re-education, Patient/Caregiver Education, Self-Care/Home Management,Soft Tissue Mobilization, Therapeutic Activities, Therapeutic Exercises Modalities Cold Pack/Ice Massage,Hot Packs Next Visit Focus/Plan Next Note Type Treatment Note Next Visit Plan check adn provide feedback to goals next visit prep PT 5th visit how pt progressing. Assess response TM, gait, supine/ seated HEP. Continue per PT POC: Gait training, balance training, postural training, LLE (ankles , hips & ecc knee strengthening, proprioceptive/ coordination training, and progressioin on a HEP.
--- NOTE | 2021-02-21 14:35 | PT.OTN ---
Current Diagnoses Muscle weakness (generalized) (02/21/21) Difficulty in walking, not elsewhere classified (02/21/21) Abnormal posture (02/21/21) Other symptoms and signs involving the nervous system (02/21/21) Physical Therapy Treatment Note PT-OP-A Visit Information Start: 01/31/21 17:56 Freq: Status: Active Protocol: Document 02/21/21 13:50 SP (Rec: 02/21/21 16:16 SP [id number]) Out-Patient Physical Therapy Visit Information Visit Information Visit Type Treatment Note Visit Note PT 6th visit next tx (complete /update ARRIETA/DGI in PT/BANDAGE MAKER packet see PT drawer, ABC score) update progress/POC suggestions, see goals updated last tx for support. 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 PT-OP-B Current Condition Start: 01/31/21 17:56 Freq: Status: Active Protocol: Document 02/04/21 08:18 LRN (Rec: 02/04/21 09:07 LRN [id number]) Current Condition History of Current Condition Onset Date November 2019 Current Complaints Having to use walker to walk. 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 In hospital 3-4 days, transferred to [facility] in [place] (jail) and found PT to not be helpful, then home health care after 14 days of quarrentine after catching COVID. Had home health PT for 3 months. Now seeking outpatient PT independently. States she needs help walking without a walker. Have fallen a few times immediately after returning home, due to weak L leg. Doesn't have feeling in feet and has sharp pains in feet; therefore on Gabapentin. Uses topical CBD cream that helps a little. During the day and while walking around, no pain. Pain in feet is mainly at night when trying to go to sleep, or sitting watching TV. Prior Treatments and Tests Few years ago had PT for neuropathy. Has treadmill at home that she uses sometimes. Treatment Goals Patient/Caregiver Goals Pt goal is to be able to walk without a walker using a cane, improve endurance and balance and pt agreeable to being placed on a HEP at discharge. 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 Had to sit on bench to rest. Baseline Function- Other Up/down steps using 2 railings . Current Functional Impairments (Reported) Functional Limitations- ADL's Ambs around home occasioinally without walker (kitchen to living room, living room to laudry room and bathrrom). Walks on deck with FWW. Functional Limitations- Mobility/Gait Ambulates with FWW independently. 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 Can go up/down steps using 2 railings. Personal Factors Other Personal Factors That May Effect Neuropathy of the feet. Therapy/Recovery PT-OP-C Subjective Start: 01/31/21 17:56 Freq: Status: Active Protocol: Document 02/21/21 13:50 SP (Rec: 02/21/21 16:16 SP [id number]) OP-PT Subjective Patient Comments Patient Comments Pt stated was more compliant with HEP. Trying to be more conscious of L knee extension and heel toe when walking. PT-OP-D Balance Start: 01/31/21 17:56 Freq: Status: Active Protocol: Document 02/04/21 08:18 LRN (Rec: 02/04/21 09:07 LRN [id number]) Arrieta Balance Assessment Evaluation Sitting to Standing Ability Independent w/out Hands Unsupported Stance 30 seconds Sitting Unsupported, Feet on Floor Safely- 2 minutes Standing to Sitting Ability Independent, Uncontrolled Transfer Ability Safely, Minimal Hand Use Unsupported Stance- Eyes Closed Falls Without Assistance Unsupported Stance- Eyes Open Assist to attain, 15 secs Reaching Forward Standing Safely, 2 inches Pick- Up Object From Floor Requires Assistance Look Behind Shoulder - Standing Assist to Prevent Fall Turning 360 Degrees Requires Assistance Unsupported Stance, Alternating Feet on Assist to Prevent Fall Stair Unsupported Tandem Stance Balance Lost- Step/Stand Unilateral Leg Stance Unable,assist to not fall Total Score Arrieta Total Score (out of 56 points) 18 Arrieta Impairment Rating 60 to 79% Impaired (Score 12- 22) Tinetti Balance Assessment Sitting Balance Sitting Balance Steady, safe Arising from Chair Ability to Arise Able, w/o using arms Attempts to Arise Arises on 1st attempt Standing Balance Immediate Standing Balance Unsteady Standing Balance Unsteady Nudged Response Begins to fall Standing with Eyes Closed Unsteady Turning Step Pattern Turning 360 Degrees Continuous steps Stability Turning 360 Degrees Unsteady, grabs/staggers Sitting Down Sitting Down Unsafe Gait and Step Initiation of Gait No hesitancy Right Foot Step Length Does not pass stance ft. Right Foot Step Height Completely clears floor Left Foot Step Length Does not pass stance foot Left Foot Step Height Completely clears floor Step Description Step Symmetry Step length not equal Step Continuity Steps appear continuous Gait Description Path Description Straight Trunk Description Marked sway or uses aide Walking Stance Heels together Scoring and Interpretation Tinetti Composite Score (points) 13 Interpretation of Scores High risk for falls(< 19) Tinetti Impairment Rating from Composite 40 to <60% Impaired (Score 12- Score 16) PT-OP-E Functional Tests Start: 01/31/21 17:56 Freq: Status: Active Protocol: Document 02/04/21 08:18 LRN (Rec: 02/04/21 09:07 LRN [id number]) Functional Tests 30 Second Sit to Stand Test Score 9x Other 5TSTS Name of Test 5TSTS Score 15.74 secs PT-OP-G Mobility & Gait Start: 01/31/21 17:56 Freq: Status: Active Protocol: Document 02/04/21 08:18 LRN (Rec: 02/04/21 09:07 LRN [id number]) OP Gait Assessment Gait Gait Assistance Required: Independent Distance (Feet) 100 Able to Maintain Weight Bearing Status Yes During Gait Assistive Devices Assistive Device Front Wheeled Walker Gait Deviations General Gait Pattern Decreased Stride Length,Flexed Trunk,Lateral Trunk Lean, Narrow Based Gait,Step-to Gait Factors Limiting Gait Function Factors Limiting Gait Function Decreased Activity Tolerance, Decreased Strength,Poor Balance PT-OP-J Posture/Palpation/Skin Start: 01/31/21 17:56 Freq: Status: Active Protocol: Document 02/04/21 08:18 LRN (Rec: 02/04/21 09:07 LRN [id number]) Posture Evaluation Position Standing Head/C-Spine Posture Forward Head T-Spine Posture Increased Kyphosis L-Spine Posture Flattened Shoulder Posture (L) Elevated Pelvis Posture Anteriorly Tilted,Posterior Tilted Weight Distribution Weight Shifted Right Knee Posture (L) Genu Valgus,(R) Genu Valgus Comments Posture Comments Foot deformity FB at hips ~35 deg's, L hip retracted. PT-OP-M Strength Start: 01/31/21 17:56 Freq: Status: Active Protocol: Document 02/04/21 08:18 LRN (Rec: 02/04/21 09:07 LRN [id number]) Hip Strength Hip Manual Muscle Testing Right Flexion (L2) 5 Normal Left Flexion (L2) 4 Good Knee Strength Knee Manual Muscle Testing Right Comments Generally 5/5 Left Comments Generally 5/5 Ankle/Foot Strength Ankle and Foot Manual Muscle Testing Right Comments Generally 5/5 Left Inversion 3 Fair Comments L foot deformity limiting IV mobility. PT-OP-Q Treatments Start: 01/31/21 17:56 Freq: Status: Active Protocol: Document 02/21/21 13:50 SP (Rec: 02/21/21 16:16 SP [id number]) Cardio Equipment Treadmill Duration (Minutes) 6 Speed 0.7mph, .8 miles Incline 0 (1-2 Ue contact) Other intermittent cuing longer stride, knee extension, heel toe LLE Therapeutic Exercises Sitting Exercises Eccentric knee extension Sitting Exercise Name knee flexion con/ eccentric Side bilateral Resistance Tb #1 Equipment Used added to HEP Reps/Minutes x10 Comments cued slow eccentric control LAQ Sitting Exercise Name review HEP Side left Reps/Minutes 2x10 Comments cued PF, slow pacing Standing Exercises sit <> stands Standing Exercise Name no UE support, 4WW front for safety Equipment Used 18 chair Reps/Minutes 7.5 reps in 30 sec Comments cued feet under, hip hindge over feet, no retro lean PT-OP-T Assessment and Plan Start: 01/31/21 17:56 Freq: Status: Active Protocol: Document 02/21/21 13:50 SP (Rec: 02/21/21 16:16 SP [id number]) Physical Therapy Assessment Goals Four Impairment Decreased endurance (30 sec sit to stand - 9 reps; 5TSTS = 15.7 secs) Short Term Goal (STG) Improve 5TSTS TO 12.6 secs ( Norm for 80-89 yo is 14.8 sec' s) 02/21/21: progressin reps in 16 sec. STG Duration 03/08/21 Sociology Teacher Goal (LTG) Improve 30 sit to stand to 10- 15 reps (norm for ages 75-79 is 10-15 reps) 02/21/21: progressin.5 reps in 30 sec. LTG Duration 05/05/21 Three Impairment Decreased Balance per ARRIETA score of 18 (60<80% impaired) Short Term Goal (STG) Improve standing reach (5 or more safely), and ability to stand and look behind without loss of balance. STG Duration 03/22/21 Retirement Goal (LTG) ARRIETA balance score of 34-44 ( 20<40% impaired) LTG Duration 05/05/21 Two Impairment Decreased gait with need of FWW for safety (Tinetti 13 = high fall risk) Short Term Goal (STG) Overall Tinetti score 23-27 (1 <20% impaired) or score 19-24 (medium fall risk, <14 high fall) risk). 02/21/21: progressing , high risk for falls. STG Duration 03/22/21 Sociology Teacher Goal (LTG) Pt will be able to walk without a cane safely 100' or more. LTG Duration 05/05/21 One Impairment Lacks appropriate HEP. Short Term Goal (STG) Improve ABC score 41-60 (40<60 % impaired). Eval score is 10 .62. STG Duration 03/22/21 Retirement Goal (LTG) Pt will be independent with a self care HEP to promote improving LE strength and balance. 02/21/21 HEP: ankle PF&EV TB, LAQ, posture scap squeeze w/ shld ER TB, heel toe walking, self STMs to calf/quad/HS, HS curl TB. LTG Duration 05/05/21 Progress Towards Goals Progress Towards Goals Progressing Toward Goals Progress Comments Sit<>stands: 5 reps in 16 sec and 7.5 reps in 30 sec without UE support. Tinetti improved from yo , still at high risk for falls. Assessment Summary Assessment Tx focused on assess goal to assist new PT to pt next tx. Pt showing improvement in balance coming to standing without UE support, continues require cuing for L knee extension and heel to toe with PF descent awareness to allow increased stride on LLE but is walking closer and taller to her 4WW. Physical Therapy Plan Frequency and Duration Frequency of Treatment 2x/Week Plan of Care Start Date 02/04/21 Plan of Care End Date 05/05/21 Therapeutic Interventions Therapeutic Interventions Aquatic Therapy,Balance Training,Coordination Training ,Gait Training,Home Exercise Program,Manual Therapy, Neuromuscular Re-education, Patient/Caregiver Education, Self-Care/Home Management,Soft Tissue Mobilization, Therapeutic Activities, Therapeutic Exercises Modalities Cold Pack/Ice Massage,Hot Packs Next Visit Focus/Plan Next Note Type Treatment Note Next Visit Plan See Notes next appt suggestions for PT appt. Review HEP. Continue per PT initial POC: Gait training, balance training, postural training, LLE (ankles, hips & ecc knee strengthening, proprioceptive/ coordination training, and progressioin on a HEP.
--- NOTE | 2021-02-26 17:23 | PT.OTN ---
Current Diagnoses Muscle weakness (generalized) (02/26/21) Difficulty in walking, not elsewhere classified (02/26/21) Abnormal posture (02/26/21) Other symptoms and signs involving the nervous system (02/26/21) Physical Therapy Treatment Note PT-OP-A Visit Information Start: 01/31/21 17:56 Freq: Status: Active Protocol: Document 02/26/21 14:30 AW (Rec: 02/26/21 14:32 AW [id number]) Out-Patient Physical Therapy Visit Information Visit Information Visit Type Treatment Note Visit Start Time 13:45 Visit Stop Time 14:30 Total Visit Minutes 45 Visit Number 6 Number of REGISTERED NURSE MATERNITY Visits 0 Evaluation Information Evaluation Date 02/04/21 Precautions Precautions 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 PT-OP-B Current Condition Start: 01/31/21 17:56 Freq: Status: Active Protocol: Document 02/04/21 08:18 LRN (Rec: 02/04/21 09:07 LRN [id number]) Current Condition History of Current Condition Onset Date November 2019 Current Complaints Having to use walker to walk. 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 In hospital 3-4 days, transferred to [facility] in [place] (senior care) and found PT to not be helpful, then home health care after 14 days of quarrentine after catching COVID. Had home health PT for 3 months. Now seeking outpatient PT independently. States she needs help walking without a walker. Have fallen a few times immediately after returning home, due to weak L leg. Doesn't have feeling in feet and has sharp pains in feet; therefore on Gabapentin. Uses topical CBD cream that helps a little. During the day and while walking around, no pain. Pain in feet is mainly at night when trying to go to sleep, or sitting watching TV. Prior Treatments and Tests Few years ago had PT for neuropathy. Has treadmill at home that she uses sometimes. Treatment Goals Patient/Caregiver Goals Pt goal is to be able to walk without a walker using a cane, improve endurance and balance and pt agreeable to being placed on a HEP at discharge. 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 Had to sit on bench to rest. Baseline Function- Other Up/down steps using 2 railings . Current Functional Impairments (Reported) Functional Limitations- ADL's Ambs around home occasioinally without walker (kitchen to living room, living room to laudry room and bathrrom). Walks on deck with FWW. Functional Limitations- Mobility/Gait Ambulates with FWW independently. 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 Can go up/down steps using 2 railings. Personal Factors Other Personal Factors That May Effect Neuropathy of the feet. Therapy/Recovery PT-OP-C Subjective Start: 01/31/21 17:56 Freq: Status: Active Protocol: Document 02/26/21 14:30 AW (Rec: 02/26/21 14:32 AW [id number]) OP-PT Subjective Patient Comments Patient Comments Pt has been working on heel toe gait and sit to stand since last visit. PT-OP-D Balance Start: 01/31/21 17:56 Freq: Status: Active Protocol: Document 02/04/21 08:18 LRN (Rec: 02/04/21 09:07 LRN [id number]) Arrieta Balance Assessment Evaluation Sitting to Standing Ability Independent w/out Hands Unsupported Stance 30 seconds Sitting Unsupported, Feet on Floor Safely- 2 minutes Standing to Sitting Ability Independent, Uncontrolled Transfer Ability Safely, Minimal Hand Use Unsupported Stance- Eyes Closed Falls Without Assistance Unsupported Stance- Eyes Open Assist to attain, 15 secs Reaching Forward Standing Safely, 2 inches Pick- Up Object From Floor Requires Assistance Look Behind Shoulder - Standing Assist to Prevent Fall Turning 360 Degrees Requires Assistance Unsupported Stance, Alternating Feet on Assist to Prevent Fall Stair Unsupported Tandem Stance Balance Lost- Step/Stand Unilateral Leg Stance Unable,assist to not fall Total Score Arrieta Total Score (out of 56 points) 18 Arrieta Impairment Rating 60 to 79% Impaired (Score 12- 22) Tinetti Balance Assessment Sitting Balance Sitting Balance Steady, safe Arising from Chair Ability to Arise Able, w/o using arms Attempts to Arise Arises on 1st attempt Standing Balance Immediate Standing Balance Unsteady Standing Balance Unsteady Nudged Response Begins to fall Standing with Eyes Closed Unsteady Turning Step Pattern Turning 360 Degrees Continuous steps Stability Turning 360 Degrees Unsteady, grabs/staggers Sitting Down Sitting Down Unsafe Gait and Step Initiation of Gait No hesitancy Right Foot Step Length Does not pass stance ft. Right Foot Step Height Completely clears floor Left Foot Step Length Does not pass stance foot Left Foot Step Height Completely clears floor Step Description Step Symmetry Step length not equal Step Continuity Steps appear continuous Gait Description Path Description Straight Trunk Description Marked sway or uses aide Walking Stance Heels together Scoring and Interpretation Tinetti Composite Score (points) 13 Interpretation of Scores High risk for falls(< 19) Tinetti Impairment Rating from Composite 40 to <60% Impaired (Score 12- Score 16) PT-OP-E Functional Tests Start: 01/31/21 17:56 Freq: Status: Active Protocol: Document 02/04/21 08:18 LRN (Rec: 02/04/21 09:07 LRN [id number]) Functional Tests 30 Second Sit to Stand Test Score 9x Other 5TSTS Name of Test 5TSTS Score 15.74 secs PT-OP-G Mobility & Gait Start: 01/31/21 17:56 Freq: Status: Active Protocol: Document 02/04/21 08:18 LRN (Rec: 02/04/21 09:07 LRN [id number]) OP Gait Assessment Gait Gait Assistance Required: Independent Distance (Feet) 100 Able to Maintain Weight Bearing Status Yes During Gait Assistive Devices Assistive Device Front Wheeled Walker Gait Deviations General Gait Pattern Decreased Stride Length,Flexed Trunk,Lateral Trunk Lean, Narrow Based Gait,Step-to Gait Factors Limiting Gait Function Factors Limiting Gait Function Decreased Activity Tolerance, Decreased Strength,Poor Balance PT-OP-J Posture/Palpation/Skin Start: 01/31/21 17:56 Freq: Status: Active Protocol: Document 02/04/21 08:18 LRN (Rec: 02/04/21 09:07 LRN [id number]) Posture Evaluation Position Standing Head/C-Spine Posture Forward Head T-Spine Posture Increased Kyphosis L-Spine Posture Flattened Shoulder Posture (L) Elevated Pelvis Posture Anteriorly Tilted,Posterior Tilted Weight Distribution Weight Shifted Right Knee Posture (L) Genu Valgus,(R) Genu Valgus Comments Posture Comments Foot deformity FB at hips ~35 deg's, L hip retracted. PT-OP-M Strength Start: 01/31/21 17:56 Freq: Status: Active Protocol: Document 02/04/21 08:18 LRN (Rec: 02/04/21 09:07 LRN [id number]) Hip Strength Hip Manual Muscle Testing Right Flexion (L2) 5 Normal Left Flexion (L2) 4 Good Knee Strength Knee Manual Muscle Testing Right Comments Generally 5/5 Left Comments Generally 5/5 Ankle/Foot Strength Ankle and Foot Manual Muscle Testing Right Comments Generally 5/5 Left Inversion 3 Fair Comments L foot deformity limiting IV mobility. PT-OP-Q Treatments Start: 01/31/21 17:56 Freq: Status: Active Protocol: Document 02/26/21 14:30 AW (Rec: 02/26/21 14:32 AW [id number]) Cardio Equipment Treadmill Duration (Minutes) 6 Speed 0.7mph, .8 miles Incline 0 (1-2 Ue contact) Other intermittent cuing longer stride, knee extension, heel toe LLE Therapeutic Exercises Sitting Exercises Eccentric knee extension Sitting Exercise Name knee flexion con/ eccentric Side bilateral Resistance Tb #1 Reps/Minutes x10 Comments cued slow eccentric control L ankle ROM/ TB Sitting Exercise Name PF, EV- Review HEP Side left Resistance AROM x10, TB #1 each Reps/Minutes 2 x10 reps Comments cued heel of foot contact floor during EV Standing Exercises sit <> stands Standing Exercise Name no UE support, 4WW front for safety Equipment Used 18 chair Reps/Minutes 6 reps x 4 Comments cued forward weight shift and acceptance, control of descent Neuro Re-Education Treatment Balance Activities corner balance Details NBOS Surface Firm Equipment rail at side, 4WW front Comments stationary head turns SBA/CGA PT-OP-T Assessment and Plan Start: 01/31/21 17:56 Freq: Status: Active Protocol: Document 02/26/21 14:30 AW (Rec: 02/26/21 17:23 AW [id number]) Physical Therapy Assessment Goals Four Impairment Decreased endurance (30 sec sit to stand - 9 reps; 5TSTS = 15.7 secs) Short Term Goal (STG) Improve 5TSTS TO 12.6 secs ( Norm for 80-89 yo is 14.8 sec' s) 02/21/21: progressin reps in 16 sec. STG Duration 03/08/21 Wig Stylist Goal (LTG) Improve 30 sit to stand to 10- 15 reps (norm for ages 75-79 is 10-15 reps) 02/21/21: progressin.5 reps in 30 sec. LTG Duration 05/05/21 Three Impairment Decreased Balance per ARRIETA score of 18 (60<80% impaired) Short Term Goal (STG) Improve standing reach (5 or more safely), and ability to stand and look behind without loss of balance. STG Duration 03/22/21 Wig Stylist Goal (LTG) ARRIETA balance score of 34-44 ( 20<40% impaired) LTG Duration 05/05/21 Two Impairment Decreased gait with need of FWW for safety (Tinetti 13 = high fall risk) Short Term Goal (STG) Overall Tinetti score 23-27 (1 <20% impaired) or score 19-24 (medium fall risk, <14 high fall) risk). 02/21/21: progressing 16/28, high risk for falls. STG Duration 03/22/21 Wig Stylist Goal (LTG) Pt will be able to walk without a cane safely 100' or more. LTG Duration 05/05/21 One Impairment Lacks appropriate HEP. Short Term Goal (STG) Improve ABC score 41-60 (40<60 % impaired). Eval score is 10 .62. STG Duration 03/22/21 Detention Goal (LTG) Pt will be independent with a self care HEP to promote improving LE strength and balance. 02/21/21 HEP: ankle PF&EV TB, LAQ, posture scap squeeze w/ shld ER TB, heel toe walking, self STMs to calf/quad/HS, HS curl TB. LTG Duration 05/05/21 Assessment Summary Assessment Reviewed HEP for independent performance and continued to work on functional mobility. Pt is using good mechanics to rise from standard height chair but needs cues for full extension in standing as she tends to keep her weight forward. Physical Therapy Plan Frequency and Duration Frequency of Treatment 2x/Week Plan of Care Start Date 02/04/21 Plan of Care End Date 05/05/21 Therapeutic Interventions Therapeutic Interventions Aquatic Therapy,Balance Training,Coordination Training ,Gait Training,Home Exercise Program,Manual Therapy, Neuromuscular Re-education, Patient/Caregiver Education, Self-Care/Home Management,Soft Tissue Mobilization, Therapeutic Activities, Therapeutic Exercises Modalities Cold Pack/Ice Massage,Hot Packs Next Visit Focus/Plan Next Note Type Treatment Note Next Visit Plan Continue per PT initial POC: Gait training, balance training, postural training, LLE (ankles, hips & ecc knee strengthening, proprioceptive/ coordination training, and progressioin on a HEP.
--- NOTE | 2021-03-01 11:17 | PT.OTN ---
Current Diagnoses Muscle weakness (generalized) (03/01/21) Difficulty in walking, not elsewhere classified (03/01/21) Abnormal posture (03/01/21) Other symptoms and signs involving the nervous system (03/01/21) Physical Therapy Treatment Note PT-OP-A Visit Information Start: 01/31/21 17:56 Freq: Status: Active Protocol: Document 03/01/21 10:33 SP (Rec: 03/01/21 11:45 SP [id number]) Out-Patient Physical Therapy Visit Information Visit Information Visit Type Treatment Note Visit Start Time 10:33 Visit Stop Time 11:17 Total Visit Minutes 44 Visit Number 7 Number of TORQUE TESTER Visits 1 Evaluation Information Evaluation Date 02/04/21 Precautions Precautions 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 PT-OP-B Current Condition Start: 01/31/21 17:56 Freq: Status: Active Protocol: Document 02/04/21 08:18 LRN (Rec: 02/04/21 09:07 LRN [id number]) Current Condition History of Current Condition Onset Date November 2019 Current Complaints Having to use walker to walk. 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 In hospital 3-4 days, transferred to [facility] in [place] (group home) and found PT to not be helpful, then home health care after 14 days of quarrentine after catching COVID. Had home health PT for 3 months. Now seeking outpatient PT independently. States she needs help walking without a walker. Have fallen a few times immediately after returning home, due to weak L leg. Doesn't have feeling in feet and has sharp pains in feet; therefore on Gabapentin. Uses topical CBD cream that helps a little. During the day and while walking around, no pain. Pain in feet is mainly at night when trying to go to sleep, or sitting watching TV. Prior Treatments and Tests Few years ago had PT for neuropathy. Has treadmill at home that she uses sometimes. Treatment Goals Patient/Caregiver Goals Pt goal is to be able to walk without a walker using a cane, improve endurance and balance and pt agreeable to being placed on a HEP at discharge. 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 Had to sit on bench to rest. Baseline Function- Other Up/down steps using 2 railings . Current Functional Impairments (Reported) Functional Limitations- ADL's Ambs around home occasioinally without walker (kitchen to living room, living room to laudry room and bathrrom). Walks on deck with FWW. Functional Limitations- Mobility/Gait Ambulates with FWW independently. 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 Can go up/down steps using 2 railings. Personal Factors Other Personal Factors That May Effect Neuropathy of the feet. Therapy/Recovery PT-OP-C Subjective Start: 01/31/21 17:56 Freq: Status: Active Protocol: Document 03/01/21 10:33 SP (Rec: 03/01/21 11:45 SP [id number]) OP-PT Subjective Patient Comments Patient Comments Pt stated has been walking on her treadmill and doing heel toe best can and ankle exercises at home. Patient Reported Progress Improving PT-OP-D Balance Start: 01/31/21 17:56 Freq: Status: Active Protocol: Document 02/04/21 08:18 LRN (Rec: 02/04/21 09:07 LRN [id number]) Angeles Balance Assessment Evaluation Sitting to Standing Ability Independent w/out Hands Unsupported Stance 30 seconds Sitting Unsupported, Feet on Floor Safely- 2 minutes Standing to Sitting Ability Independent, Uncontrolled Transfer Ability Safely, Minimal Hand Use Unsupported Stance- Eyes Closed Falls Without Assistance Unsupported Stance- Eyes Open Assist to attain, 15 secs Reaching Forward Standing Safely, 2 inches Pick- Up Object From Floor Requires Assistance Look Behind Shoulder - Standing Assist to Prevent Fall Turning 360 Degrees Requires Assistance Unsupported Stance, Alternating Feet on Assist to Prevent Fall Stair Unsupported Tandem Stance Balance Lost- Step/Stand Unilateral Leg Stance Unable,assist to not fall Total Score Angeles Total Score (out of 56 points) 18 Angeles Impairment Rating 60 to 79% Impaired (Score 12- 22) Tinetti Balance Assessment Sitting Balance Sitting Balance Steady, safe Arising from Chair Ability to Arise Able, w/o using arms Attempts to Arise Arises on 1st attempt Standing Balance Immediate Standing Balance Unsteady Standing Balance Unsteady Nudged Response Begins to fall Standing with Eyes Closed Unsteady Turning Step Pattern Turning 360 Degrees Continuous steps Stability Turning 360 Degrees Unsteady, grabs/staggers Sitting Down Sitting Down Unsafe Gait and Step Initiation of Gait No hesitancy Right Foot Step Length Does not pass stance ft. Right Foot Step Height Completely clears floor Left Foot Step Length Does not pass stance foot Left Foot Step Height Completely clears floor Step Description Step Symmetry Step length not equal Step Continuity Steps appear continuous Gait Description Path Description Straight Trunk Description Marked sway or uses aide Walking Stance Heels together Scoring and Interpretation Tinetti Composite Score (points) 13 Interpretation of Scores High risk for falls(< 19) Tinetti Impairment Rating from Composite 40 to <60% Impaired (Score 12- Score 16) PT-OP-E Functional Tests Start: 01/31/21 17:56 Freq: Status: Active Protocol: Document 02/04/21 08:18 LRN (Rec: 02/04/21 09:07 LRN [id number]) Functional Tests 30 Second Sit to Stand Test Score 9x Other 5TSTS Name of Test 5TSTS Score 15.74 secs PT-OP-G Mobility & Gait Start: 01/31/21 17:56 Freq: Status: Active Protocol: Document 02/04/21 08:18 LRN (Rec: 02/04/21 09:07 LRN [id number]) OP Gait Assessment Gait Gait Assistance Required: Independent Distance (Feet) 100 Able to Maintain Weight Bearing Status Yes During Gait Assistive Devices Assistive Device Front Wheeled Walker Gait Deviations General Gait Pattern Decreased Stride Length,Flexed Trunk,Lateral Trunk Lean, Narrow Based Gait,Step-to Gait Factors Limiting Gait Function Factors Limiting Gait Function Decreased Activity Tolerance, Decreased Strength,Poor Balance PT-OP-J Posture/Palpation/Skin Start: 01/31/21 17:56 Freq: Status: Active Protocol: Document 02/04/21 08:18 LRN (Rec: 02/04/21 09:07 LRN [id number]) Posture Evaluation Position Standing Head/C-Spine Posture Forward Head T-Spine Posture Increased Kyphosis L-Spine Posture Flattened Shoulder Posture (L) Elevated Pelvis Posture Anteriorly Tilted,Posterior Tilted Weight Distribution Weight Shifted Right Knee Posture (L) Genu Valgus,(R) Genu Valgus Comments Posture Comments Foot deformity FB at hips ~35 deg's, L hip retracted. PT-OP-M Strength Start: 01/31/21 17:56 Freq: Status: Active Protocol: Document 02/04/21 08:18 LRN (Rec: 02/04/21 09:07 LRN [id number]) Hip Strength Hip Manual Muscle Testing Right Flexion (L2) 5 Normal Left Flexion (L2) 4 Good Knee Strength Knee Manual Muscle Testing Right Comments Generally 5/5 Left Comments Generally 5/5 Ankle/Foot Strength Ankle and Foot Manual Muscle Testing Right Comments Generally 5/5 Left Inversion 3 Fair Comments L foot deformity limiting IV mobility. PT-OP-Q Treatments Start: 01/31/21 17:56 Freq: Status: Active Protocol: Document 03/01/21 10:33 SP (Rec: 03/01/21 11:45 SP [id number]) Cardio Equipment Treadmill Duration (Minutes) 7 Speed 0.7mph, .8 miles Incline 0 (1-2 Ue contact) Other intermittent cuing longer stride, knee extension, heel toe LLE Therapeutic Exercises Sitting Exercises proper breathing Sitting Exercise Name diaphramatic breathing to assist decrease SOB during longer dist gait QC Reps/Minutes x5 slow pacing Comments in nose, out pursed lips, slow pacing control toe/ heel side coordination movement Sitting Exercise Name side pivot on ball and heel foot Side bilateral Reps/Minutes 3 min Comments looking then not looking, challenging remember decent to heel>toe coordination foot taps opp LE Sitting Exercise Name tap opp dorsal foot, ruano, knee Side bilateral Resistance AROM Equipment Used seated in 18 chair Reps/Minutes 4 min Comments looking for awareness then perform not looking LAQ Sitting Exercise Name w/ PF of ankle- reviewed HEP Side bilateral Resistance AROM Reps/Minutes 2x10 Comments cued slow pacing L ankle ROM/ TB Sitting Exercise Name PF, EV- Review HEP Side left Resistance AROM x10, TB #1>#2>#3 each Reps/Minutes x10 reps each Comments cued heel of foot contact floor during EV sitting posture Sitting Exercise Name w/ shld ER Resistance Tb #2 Reps/Minutes 2x10 reps Comments cued tall posture, elbow at side, CS tall neutral Standing Exercises sit <> stands Standing Exercise Name no UE support, 4WW front for safety Equipment Used 18 chair Reps/Minutes 10 reps in 30 Comments good forward weight shift and acceptance, control of descent Gait Training Gait Activity Gait Quad Cane Device Used SBQC in RUE Level of Assistance CGA- Min A Surface firm Distance/Duration 80 ft x2 forward, 20 ft forward/ backward in mirror Treatment Focus quad facilitation during swing through, heel toe R>L LE, 2 pt gait Comments cue L>RLE knee extension heel >toe descent, foot cleareance and increase stride with safe stride for stability. Pt required 1 stopped stand rests during 40-50 ft and 1 seated rest at end length of 80 ft. Cued breath for decrease elevated breath rate. Self-Care/Home Management Treatment Education Patient Education Body Mechanics,Home Exercise Program Other Education Initiated coordination seated activities LE taps to foot/ ankle/ ruano, and heel/toe side pivot. Pt initiatlly required looking to perform, Challenged performance without looking to exact positioning. will continue to work on next tx to improve LE spacial awareness for safety gait LE positioning knowing decreased feeling in B feet. PT-OP-T Assessment and Plan Start: 01/31/21 17:56 Freq: Status: Active Protocol: Document 03/01/21 10:33 SP (Rec: 03/01/21 11:45 SP [id number]) Physical Therapy Assessment Goals Four Impairment Decreased endurance (30 sec sit to stand - 9 reps; 5TSTS = 15.7 secs) Short Term Goal (STG) Improve 5TSTS TO 12.6 secs ( Norm for 80-89 yo is 14.8 sec' s) 02/21/21: progressin reps in 16 sec. STG Duration 03/08/21 Event Promoter Goal (LTG) Improve 30 sit to stand to 10- 15 reps (norm for ages 75-79 is 10-15 reps) 02/21/21: progressin.5 reps in 30 sec. 03/01/21: progressing 10 reps in 30 sec today. LTG Duration 05/05/21 Three Impairment Decreased Balance per ANGELES score of 18 (60<80% impaired) Short Term Goal (STG) Improve standing reach (5 or more safely), and ability to stand and look behind without loss of balance. STG Duration 03/22/21 Fdc Goal (LTG) ANGELES balance score of 34-44 ( 20<40% impaired) LTG Duration 05/05/21 Two Impairment Decreased gait with need of FWW for safety (Tinetti 13 = high fall risk) Short Term Goal (STG) Overall Tinetti score 23-27 (1 <20% impaired) or score 19-24 (medium fall risk, <14 high fall) risk). 02/21/21: progressing 16/, high risk for falls. STG Duration 03/22/21 Fdc Goal (LTG) Pt will be able to walk without a cane safely 100' or more. LTG Duration 05/05/21 One Impairment Lacks appropriate HEP. Short Term Goal (STG) Improve ABC score 41-60 (40<60 % impaired). Eval score is 10 .62. STG Duration 03/22/21 Event Promoter Goal (LTG) Pt will be independent with a self care HEP to promote improving LE strength and balance. 02/21/21 HEP: ankle PF&EV TB, LAQ, posture scap squeeze w/ shld ER TB, heel toe walking, self STMs to calf/quad/HS, eccentric HS curl TB. Initiated coordination foot ruano/ ankle IV/EV side taps today. LTG Duration 05/05/21 Progress Towards Goals Progress Towards Goals Progressing Toward Goals Progress Comments Pt improving sit<>Stands without UE assist 10 reps ( normal for 70-79 y/o 10-15 reps). Assessment Summary Assessment Pt required Min cues for PF full ROM can with eccentric control during ankle Tb HEP review. Pt improved in balance sit<>stands 10 reps in 30 sec w/out UE support. Initiated gait w/ SBQC today with max cuing for heel toe, occasiona cuing for 2 pt gait patterning with LLE, unsteady CG- Min A required, Will continue to work on in PT. Physical Therapy Plan Frequency and Duration Frequency of Treatment 2x/Week Plan of Care Start Date 02/04/21 Plan of Care End Date 05/05/21 Therapeutic Interventions Therapeutic Interventions Aquatic Therapy,Balance Training,Coordination Training ,Gait Training,Home Exercise Program,Manual Therapy, Neuromuscular Re-education, Patient/Caregiver Education, Self-Care/Home Management,Soft Tissue Mobilization, Therapeutic Activities, Therapeutic Exercises Modalities Cold Pack/Ice Massage,Hot Packs Next Visit Focus/Plan Next Note Type Treatment Note Next Visit Plan Score ABC questionare completed 02/26/21 scanned in and imput goal. Continue per PT initial POC: Gait training using SBQC, balance training in mirror, postural training, LLE (ankles , hips & ecc knee strengthening, proprioceptive/ coordination training foot taps ruano/ ankle IV/EV movements, and progressioin on a HEP.
--- NOTE | 2021-03-05 15:18 | PT.OTN ---
Current Diagnoses Muscle weakness (generalized) (03/05/21) Difficulty in walking, not elsewhere classified (03/05/21) Abnormal posture (03/05/21) Other symptoms and signs involving the nervous system (03/05/21) Physical Therapy Treatment Note PT-OP-A Visit Information Start: 01/31/21 17:56 Freq: Status: Active Protocol: Document 03/05/21 16:29 SP (Rec: 03/05/21 16:43 SP [id number]) Out-Patient Physical Therapy Visit Information Visit Information Visit Type Treatment Note Visit Start Time 14:36 Visit Stop Time 15:18 Total Visit Minutes 42 Visit Number 8 Number of SPEECH/LANGUAGE THERAPIST Visits 2 Evaluation Information Evaluation Date 02/04/21 Precautions Precautions 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 PT-OP-B Current Condition Start: 01/31/21 17:56 Freq: Status: Active Protocol: Document 02/04/21 08:18 LRN (Rec: 02/04/21 09:07 LRN [id number]) Current Condition History of Current Condition Onset Date November 2019 Current Complaints Having to use walker to walk. 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 In hospital 3-4 days, transferred to [facility] in [place] (residential) and found PT to not be helpful, then home health care after 14 days of quarrentine after catching COVID. Had home health PT for 3 months. Now seeking outpatient PT independently. States she needs help walking without a walker. Have fallen a few times immediately after returning home, due to weak L leg. Doesn't have feeling in feet and has sharp pains in feet; therefore on Gabapentin. Uses topical CBD cream that helps a little. During the day and while walking around, no pain. Pain in feet is mainly at night when trying to go to sleep, or sitting watching TV. Prior Treatments and Tests Few years ago had PT for neuropathy. Has treadmill at home that she uses sometimes. Treatment Goals Patient/Caregiver Goals Pt goal is to be able to walk without a walker using a cane, improve endurance and balance and pt agreeable to being placed on a HEP at discharge. 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 Had to sit on bench to rest. Baseline Function- Other Up/down steps using 2 railings . Current Functional Impairments (Reported) Functional Limitations- ADL's Ambs around home occasioinally without walker (kitchen to living room, living room to laudry room and bathrrom). Walks on deck with FWW. Functional Limitations- Mobility/Gait Ambulates with FWW independently. 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 Can go up/down steps using 2 railings. Personal Factors Other Personal Factors That May Effect Neuropathy of the feet. Therapy/Recovery PT-OP-C Subjective Start: 01/31/21 17:56 Freq: Status: Active Protocol: Document 03/05/21 16:29 SP (Rec: 03/05/21 16:43 SP [id number]) OP-PT Subjective Patient Comments Patient Comments Pt stated has allergies lately and hasn't walked on her treadmill but doing the seatd exercises at home. PT-OP-D Balance Start: 01/31/21 17:56 Freq: Status: Active Protocol: Document 02/04/21 08:18 LRN (Rec: 02/04/21 09:07 LRN [id number]) [place] Balance Assessment Evaluation Sitting to Standing Ability Independent w/out Hands Unsupported Stance 30 seconds Sitting Unsupported, Feet on Floor Safely- 2 minutes Standing to Sitting Ability Independent, Uncontrolled Transfer Ability Safely, Minimal Hand Use Unsupported Stance- Eyes Closed Falls Without Assistance Unsupported Stance- Eyes Open Assist to attain, 15 secs Reaching Forward Standing Safely, 2 inches Pick- Up Object From Floor Requires Assistance Look Behind Shoulder - Standing Assist to Prevent Fall Turning 360 Degrees Requires Assistance Unsupported Stance, Alternating Feet on Assist to Prevent Fall Stair Unsupported Tandem Stance Balance Lost- Step/Stand Unilateral Leg Stance Unable,assist to not fall Total Score Angeles Total Score (out of 56 points) 18 [place] Impairment Rating 60 to 79% Impaired (Score 12- 22) Tinetti Balance Assessment Sitting Balance Sitting Balance Steady, safe Arising from Chair Ability to Arise Able, w/o using arms Attempts to Arise Arises on 1st attempt Standing Balance Immediate Standing Balance Unsteady Standing Balance Unsteady Nudged Response Begins to fall Standing with Eyes Closed Unsteady Turning Step Pattern Turning 360 Degrees Continuous steps Stability Turning 360 Degrees Unsteady, grabs/staggers Sitting Down Sitting Down Unsafe Gait and Step Initiation of Gait No hesitancy Right Foot Step Length Does not pass stance ft. Right Foot Step Height Completely clears floor Left Foot Step Length Does not pass stance foot Left Foot Step Height Completely clears floor Step Description Step Symmetry Step length not equal Step Continuity Steps appear continuous Gait Description Path Description Straight Trunk Description Marked sway or uses aide Walking Stance Heels together Scoring and Interpretation Tinetti Composite Score (points) 13 Interpretation of Scores High risk for falls(< 19) Tinetti Impairment Rating from Composite 40 to <60% Impaired (Score 12- Score 16) PT-OP-E Functional Tests Start: 01/31/21 17:56 Freq: Status: Active Protocol: Document 02/04/21 08:18 LRN (Rec: 02/04/21 09:07 LRN [id number]) Functional Tests 30 Second Sit to Stand Test Score 9x Other 5TSTS Name of Test 5TSTS Score 15.74 secs PT-OP-G Mobility & Gait Start: 01/31/21 17:56 Freq: Status: Active Protocol: Document 02/04/21 08:18 LRN (Rec: 02/04/21 09:07 LRN [id number]) OP Gait Assessment Gait Gait Assistance Required: Independent Distance (Feet) 100 Able to Maintain Weight Bearing Status Yes During Gait Assistive Devices Assistive Device Front Wheeled Walker Gait Deviations General Gait Pattern Decreased Stride Length,Flexed Trunk,Lateral Trunk Lean, Narrow Based Gait,Step-to Gait Factors Limiting Gait Function Factors Limiting Gait Function Decreased Activity Tolerance, Decreased Strength,Poor Balance PT-OP-J Posture/Palpation/Skin Start: 01/31/21 17:56 Freq: Status: Active Protocol: Document 02/04/21 08:18 LRN (Rec: 02/04/21 09:07 LRN [id number]) Posture Evaluation Position Standing Head/C-Spine Posture Forward Head T-Spine Posture Increased Kyphosis L-Spine Posture Flattened Shoulder Posture (L) Elevated Pelvis Posture Anteriorly Tilted,Posterior Tilted Weight Distribution Weight Shifted Right Knee Posture (L) Genu Valgus,(R) Genu Valgus Comments Posture Comments Foot deformity FB at hips ~35 deg's, L hip retracted. PT-OP-M Strength Start: 01/31/21 17:56 Freq: Status: Active Protocol: Document 02/04/21 08:18 LRN (Rec: 02/04/21 09:07 LRN [id number]) Hip Strength Hip Manual Muscle Testing Right Flexion (L2) 5 Normal Left Flexion (L2) 4 Good Knee Strength Knee Manual Muscle Testing Right Comments Generally 5/5 Left Comments Generally 5/5 Ankle/Foot Strength Ankle and Foot Manual Muscle Testing Right Comments Generally 5/5 Left Inversion 3 Fair Comments L foot deformity limiting IV mobility. PT-OP-Q Treatments Start: 01/31/21 17:56 Freq: Status: Active Protocol: Document 03/05/21 16:29 SP (Rec: 03/05/21 16:43 SP [id number]) Cardio Equipment Treadmill Duration (Minutes) 7 Speed 0.6mph, miles Incline 0 (1-2 Ue contact) Other intermittent cuing longer stride, knee extension, heel toe LLE Therapeutic Exercises Sitting Exercises coordination foot taps opp LE Sitting Exercise Name tap opp dorsal foot, ruano, knee Side bilateral Resistance AROM Equipment Used seated in 18 chair Reps/Minutes 4 min Comments looking for awareness then perform not looking Eccentric knee extension Sitting Exercise Name knee flexion con/ eccentric Side bilateral Resistance Tb #2 (SPEECH/LANGUAGE THERAPIST anchored TB) Reps/Minutes x10 Comments cued slow eccentric control LAQ Sitting Exercise Name w/ PF of ankle- reviewed HEP Side bilateral Resistance YTB (#1 provded for home) Reps/Minutes 2x10 Comments cued slow pacing Standing Exercises band walk Standing Exercise Name lateral Side bilateral Resistance YTB Equipment Used //bar assist PRN Reps/Minutes 10 ft x2 laps Comments cued slow eccentric control trailing foot and clearance sit <> stands Standing Exercise Name no UE support, 4WW front for safety Equipment Used 18 chair Reps/Minutes 7 reps in 30 (post gait SBQC ) Comments good forward weight shift and acceptance, control of descent Gait Training Gait Activity Gait Quad Cane Device Used SBQC in RUE Level of Assistance CGA Surface firm Distance/Duration 100 ft with stand rest 30 sec +SOB and contact wall for suppport Treatment Focus quad facilitation during swing through, heel toe R>L LE, 2 pt gait Comments cue L>RLE knee extension heel >toe descent, L foot cleareance and increase stride with safe stride for stability. Required 1 stop stand break with contact wall 30 sec recovery from +SOB. Neuro Re-Education Treatment Balance Activities corner balance Details WBOS Surface Firm Equipment back to corner, 4WW front Reps/Duration 8 min Comments stationary head turns (cued slow pacing) SBA PT-OP-T Assessment and Plan Start: 01/31/21 17:56 Freq: Status: Active Protocol: Document 03/05/21 16:29 SP (Rec: 03/05/21 16:43 SP [id number]) Physical Therapy Assessment Goals Four Impairment Decreased endurance (30 sec sit to stand - 9 reps; 5TSTS = 15.7 secs) Short Term Goal (STG) Improve 5TSTS TO 12.6 secs ( Norm for 80-89 yo is 14.8 sec' s) 02/21/21: progressin reps in 16 sec. STG Duration 03/08/21 Last Sorter Goal (LTG) Improve 30 sit to stand to 10- 15 reps (norm for ages 75-79 is 10-15 reps) 02/21/21: progressin.5 reps in 30 sec. 03/01/21: progressing 10 reps in 30 sec today. LTG Duration 05/05/21 Three Impairment Decreased Balance per ANGELES score of 18 (60<80% impaired) Short Term Goal (STG) Improve standing reach (5 or more safely), and ability to stand and look behind without loss of balance. STG Duration 03/22/21 Last Sorter Goal (LTG) ANGELES balance score of 34-44 ( 20<40% impaired) LTG Duration 05/05/21 Two Impairment Decreased gait with need of FWW for safety (Tinetti 13 = high fall risk) Short Term Goal (STG) Overall Tinetti score 23-27 (1 <20% impaired) or score 19-24 (medium fall risk, <14 high fall) risk). 02/21/21: progressing 16, high risk for falls. STG Duration 03/22/21 Fdc Goal (LTG) Pt will be able to walk without a cane safely 100' or more. 03/05/21: progressing: gait 50 ft before SOB required stand rest for recovery 30 sec and need contact wall for suppport , provided CGA w/ gait belt for safety. LTG Duration 05/05/21 One Impairment Lacks appropriate HEP. Short Term Goal (STG) Improve ABC score 41-60 (40<60 % impaired). Eval score is 10 .62. STG Duration 03/22/21 Last Sorter Goal (LTG) Pt will be independent with a self care HEP to promote improving LE strength and balance. 03/05/21 HEP: ankle PF&EV TB, LAQ TB , posture scap squeeze w/ shld ER TB, heel toe walking, self STMs to calf/ quad/HS, eccentric HS curl TB, coordination foot ruano/ ankle IV/EV side taps/. LTG Duration 05/05/21 Assessment Summary Assessment Pt continues require intermittent cuingd for L knee extension during swing phase and heel toe transition upon heel strike. Pt had decreased gait endurance to 50 ft (80 ft last tx) with +SOB using SBQC . Physical Therapy Plan Frequency and Duration Frequency of Treatment 2x/Week Plan of Care Start Date 02/04/21 Plan of Care End Date 05/05/21 Therapeutic Interventions Therapeutic Interventions Aquatic Therapy,Balance Training,Coordination Training ,Gait Training,Home Exercise Program,Manual Therapy, Neuromuscular Re-education, Patient/Caregiver Education, Self-Care/Home Management,Soft Tissue Mobilization, Therapeutic Activities, Therapeutic Exercises Modalities Cold Pack/Ice Massage,Hot Packs Next Visit Focus/Plan Next Note Type Treatment Note Next Visit Plan Next tx reassess balance testing and goals with update of POC activitiy suggestions for f/u PT. Continue per PT initial POC: Gait training using SBQC, balance training in mirror, postural training, LLE (ankles , hips & ecc knee strengthening, proprioceptive/ coordination training foot taps ruano/ ankle IV/EV movements, and progressioin on a HEP.
--- NOTE | 2021-03-08 15:15 | PT.OTN ---
Current Diagnoses Muscle weakness (generalized) (03/08/21) Difficulty in walking, not elsewhere classified (03/08/21) Abnormal posture (03/08/21) Other symptoms and signs involving the nervous system (03/08/21) Physical Therapy Treatment Note PT-OP-A Visit Information Start: 01/31/21 17:56 Freq: Status: Active Protocol: Document 03/08/21 14:30 SP (Rec: 03/08/21 16:44 SP [id number]) Out-Patient Physical Therapy Visit Information Visit Information Visit Type Treatment Note Visit Note Next tx 10th visit. 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 PT-OP-B Current Condition Start: 01/31/21 17:56 Freq: Status: Active Protocol: Document 02/04/21 08:18 LRN (Rec: 02/04/21 09:07 LRN [id number]) Current Condition History of Current Condition Onset Date November 2019 Current Complaints Having to use walker to walk. 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 In hospital 3-4 days, transferred to [facility] in [place] (residential) and found PT to not be helpful, then home health care after 14 days of quarrentine after catching COVID. Had home health PT for 3 months. Now seeking outpatient PT independently. States she needs help walking without a walker. Have fallen a few times immediately after returning home, due to weak L leg. Doesn't have feeling in feet and has sharp pains in feet; therefore on Gabapentin. Uses topical CBD cream that helps a little. During the day and while walking around, no pain. Pain in feet is mainly at night when trying to go to sleep, or sitting watching TV. Prior Treatments and Tests Few years ago had PT for neuropathy. Has treadmill at home that she uses sometimes. Treatment Goals Patient/Caregiver Goals Pt goal is to be able to walk without a walker using a cane, improve endurance and balance and pt agreeable to being placed on a HEP at discharge. 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 Had to sit on bench to rest. Baseline Function- Other Up/down steps using 2 railings . Current Functional Impairments (Reported) Functional Limitations- ADL's Ambs around home occasioinally without walker (kitchen to living room, living room to laudry room and bathrrom). Walks on deck with FWW. Functional Limitations- Mobility/Gait Ambulates with FWW independently. 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 Can go up/down steps using 2 railings. Personal Factors Other Personal Factors That May Effect Neuropathy of the feet. Therapy/Recovery PT-OP-C Subjective Start: 01/31/21 17:56 Freq: Status: Active Protocol: Document 03/08/21 14:30 SP (Rec: 03/08/21 16:44 SP [id number]) OP-PT Subjective Patient Comments Patient Comments Pt states is able to walk short distances using SBQC on deck with more confidence. Patient Reported Progress Improving Patient Questionnaires ABC- Activity Specific Balance Confidence Scale ABC Score 71% ABC Functional Impairment 20 to <40% Impaired (Score 61- 80) PT-OP-D Balance Start: 01/31/21 17:56 Freq: Status: Active Protocol: Document 02/04/21 08:18 LRN (Rec: 02/04/21 09:07 LRN [id number]) [place] Balance Assessment Evaluation Sitting to Standing Ability Independent w/out Hands Unsupported Stance 30 seconds Sitting Unsupported, Feet on Floor Safely- 2 minutes Standing to Sitting Ability Independent, Uncontrolled Transfer Ability Safely, Minimal Hand Use Unsupported Stance- Eyes Closed Falls Without Assistance Unsupported Stance- Eyes Open Assist to attain, 15 secs Reaching Forward Standing Safely, 2 inches Pick- Up Object From Floor Requires Assistance Look Behind Shoulder - Standing Assist to Prevent Fall Turning 360 Degrees Requires Assistance Unsupported Stance, Alternating Feet on Assist to Prevent Fall Stair Unsupported Tandem Stance Balance Lost- Step/Stand Unilateral Leg Stance Unable,assist to not fall Total Score Angeles Total Score (out of 56 points) 18 [place] Impairment Rating 60 to 79% Impaired (Score 12- 22) Tinetti Balance Assessment Sitting Balance Sitting Balance Steady, safe Arising from Chair Ability to Arise Able, w/o using arms Attempts to Arise Arises on 1st attempt Standing Balance Immediate Standing Balance Unsteady Standing Balance Unsteady Nudged Response Begins to fall Standing with Eyes Closed Unsteady Turning Step Pattern Turning 360 Degrees Continuous steps Stability Turning 360 Degrees Unsteady, grabs/staggers Sitting Down Sitting Down Unsafe Gait and Step Initiation of Gait No hesitancy Right Foot Step Length Does not pass stance ft. Right Foot Step Height Completely clears floor Left Foot Step Length Does not pass stance foot Left Foot Step Height Completely clears floor Step Description Step Symmetry Step length not equal Step Continuity Steps appear continuous Gait Description Path Description Straight Trunk Description Marked sway or uses aide Walking Stance Heels together Scoring and Interpretation Tinetti Composite Score (points) 13 Interpretation of Scores High risk for falls(< 19) Tinetti Impairment Rating from Composite 40 to <60% Impaired (Score 12- Score 16) PT-OP-E Functional Tests Start: 01/31/21 17:56 Freq: Status: Active Protocol: Document 03/08/21 14:30 SP (Rec: 03/08/21 16:44 SP [id number]) Functional Tests Tinetti Balance and Gait Assessment Balance Score 8 Gait Score 4 Composite Score 12 Balance Score Impairment Rating 40 to <60% Impaired (Score 7-9 ) Gait Score Impairment Rating 40 to <60% Impaired (Score 5-7 ) Composite Score Impairment Rating 80 to <100% Impaired (Score 1- 5) Other 5TSTS Name of Test 5 STS for time Score 19 sec PT-OP-G Mobility & Gait Start: 01/31/21 17:56 Freq: Status: Active Protocol: Document 02/04/21 08:18 LRN (Rec: 02/04/21 09:07 LRN [id number]) OP Gait Assessment Gait Gait Assistance Required: Independent Distance (Feet) 100 Able to Maintain Weight Bearing Status Yes During Gait Assistive Devices Assistive Device Front Wheeled Walker Gait Deviations General Gait Pattern Decreased Stride Length,Flexed Trunk,Lateral Trunk Lean, Narrow Based Gait,Step-to Gait Factors Limiting Gait Function Factors Limiting Gait Function Decreased Activity Tolerance, Decreased Strength,Poor Balance PT-OP-J Posture/Palpation/Skin Start: 01/31/21 17:56 Freq: Status: Active Protocol: Document 02/04/21 08:18 LRN (Rec: 02/04/21 09:07 LRN [id number]) Posture Evaluation Position Standing Head/C-Spine Posture Forward Head T-Spine Posture Increased Kyphosis L-Spine Posture Flattened Shoulder Posture (L) Elevated Pelvis Posture Anteriorly Tilted,Posterior Tilted Weight Distribution Weight Shifted Right Knee Posture (L) Genu Valgus,(R) Genu Valgus Comments Posture Comments Foot deformity FB at hips ~35 deg's, L hip retracted. PT-OP-M Strength Start: 01/31/21 17:56 Freq: Status: Active Protocol: Document 02/04/21 08:18 LRN (Rec: 02/04/21 09:07 LRN [id number]) Hip Strength Hip Manual Muscle Testing Right Flexion (L2) 5 Normal Left Flexion (L2) 4 Good Knee Strength Knee Manual Muscle Testing Right Comments Generally 5/5 Left Comments Generally 5/5 Ankle/Foot Strength Ankle and Foot Manual Muscle Testing Right Comments Generally 5/5 Left Inversion 3 Fair Comments L foot deformity limiting IV mobility. PT-OP-Q Treatments Start: 01/31/21 17:56 Freq: Status: Active Protocol: Document 03/08/21 14:30 SP (Rec: 03/08/21 16:44 SP [id number]) Therapeutic Exercises Sitting Exercises toe/ heel side coordination movement Sitting Exercise Name side pivot on ball and heel foot Side bilateral Reps/Minutes 3 min Comments looking then not looking, challenging remember decent to heel>toe coordination foot taps opp LE Sitting Exercise Name tap opp dorsal foot, ruano, knee Side bilateral Resistance AROM Equipment Used seated in 18 chair Reps/Minutes 4 min Comments looking for awareness then perform not looking LAQ Sitting Exercise Name w/ PF of ankle- reviewed HEP Side bilateral Resistance YTB (#1 provded for home) Reps/Minutes 2x10 Comments cued slow pacing Standing Exercises sit <> stands Standing Exercise Name no UE support, 4WW front for safety Equipment Used 18 chair Reps/Minutes 12 reps in 30 , 5 STS 19 sec Comments good forward weight shift and acceptance, cued control of descent Gait Training Gait Activity Gait Quad Cane Device Used SBQC in RUE Level of Assistance CGA Surface firm Distance/Duration 152 ft 1 brief stop stand rest Treatment Focus quad facilitation during swing through, heel toe R>L LE, LLE toe clearance Comments cue L>RLE knee extension heel >toe descent, L foot cleareance and increase stride with safe stride for stability. Pt reported tired need seat rest before going home and drink. Neuro Re-Education Treatment Balance Activities ANGELES Comments improvement from at [facility]. PT-OP-T Assessment and Plan Start: 01/31/21 17:56 Freq: Status: Active Protocol: Document 03/08/21 14:30 SP (Rec: 03/08/21 16:44 SP [id number]) Physical Therapy Assessment Goals Four Impairment Decreased endurance (30 sec sit to stand - 9 reps; 5TSTS = 15.7 secs) Short Term Goal (STG) Improve 5TSTS TO 12.6 secs ( Norm for 80-89 yo is 14.8 sec' s) 02/21/21: progressin reps in 16 sec. 03/08/21: 5 reps 19 sec ( moderate retro lean x1 self recovery quick sit into chair no UE support). STG Duration 03/08/21 Mcc Goal (LTG) Improve 30 sit to stand to 10- 15 reps (norm for ages 75-79 is 10-15 reps) 02/21/21: progressin.5 reps in 30 sec. 03/01/21: progressing 10 reps in 30 sec today. 03/08/21: 12 reps in 30 sec no UE support- 1 retro lean quick descent self recovery. LTG Duration 05/05/21 Three Impairment Decreased Balance per ANGELES score of 18 (60<80% impaired) Short Term Goal (STG) Improve standing reach (5 or more safely), and ability to stand and look behind without loss of balance. 03/08/21: porgressing: able to reach 5 outside PAULO without LOB. STG Duration 03/22/21 Mcc Goal (LTG) ANGELES balance score of 34-44 ( 20<40% impaired) 03/08/21: - still high risk for falls. LTG Duration 05/05/21 Two Impairment Decreased gait with need of FWW for safety (Tinetti 13 = high fall risk) Short Term Goal (STG) Overall Tinetti score 23-27 (1 <20% impaired) or score 19-24 (medium fall risk, <14 high fall) risk). 02/21/21: progressing , high risk for falls. 03/08/21: 09/17, high risk for falls. STG Duration 03/22/21 Mcc Goal (LTG) Pt will be able to walk without a cane safely 100' or more. 03/05/21: progressing: gait 50 ft before SOB required stand rest for recovery 30 sec and need contact wall for suppport , provided CGA w/ gait belt for safety. LTG Duration 05/05/21 One Impairment Lacks appropriate HEP. Short Term Goal (STG) Improve ABC score 41-60 (40<60 % impaired). Eval score is 10 .62. 02/26/21: 31% 03/08/21: 71.875 % STG Duration 03/22/21 Metal Bed Assembler Goal (LTG) Pt will be independent with a self care HEP to promote improving LE strength and balance. 03/05/21 HEP: ankle PF&EV TB, LAQ TB , posture scap squeeze w/ shld ER TB, heel toe walking, self STMs to calf/ quad/HS, eccentric HS curl TB, coordination foot ruano/ ankle IV/EV side taps/. LTG Duration 05/05/21 Progress Towards Goals Progress Towards Goals Progressing Toward Goals Progress Comments Pt improving in STS increased by 2 reps in 30 , improved ANGELES to . She has increased gait endurance using SBQC, requires cues for R foot clearance and knee extension pre heel strike. Assessment Summary Assessment Pt is making gains toward goals. She is able to go short distances using SBQC at home on desk, feels more confident in balance but states has more to gain. Physical Therapy Plan Frequency and Duration Frequency of Treatment 2x/Week Plan of Care Start Date 02/04/21 Plan of Care End Date 05/05/21 Therapeutic Interventions Therapeutic Interventions Aquatic Therapy,Balance Training,Coordination Training ,Gait Training,Home Exercise Program,Manual Therapy, Neuromuscular Re-education, Patient/Caregiver Education, Self-Care/Home Management,Soft Tissue Mobilization, Therapeutic Activities, Therapeutic Exercises Modalities Cold Pack/Ice Massage,Hot Packs Next Visit Focus/Plan Next Note Type Treatment Note Next Visit Plan Next tx continue standing strengthening, balance. Review corner balance, LAQ TB, gait using QC. POC: Gait training using SBQC, balance training in mirror, postural training, LLE (ankles , hips & ecc knee strengthening, proprioceptive/ coordination training foot taps ruano/ ankle IV/EV movements, and progression in HEP.
--- NOTE | 2021-03-11 15:39 | PT.OTN ---
Current Diagnoses Muscle weakness (generalized) (03/11/21) Difficulty in walking, not elsewhere classified (03/11/21) Abnormal posture (03/11/21) Other symptoms and signs involving the nervous system (03/11/21) Physical Therapy Treatment Note PT-OP-A Visit Information Start: 01/31/21 17:56 Freq: Status: Active Protocol: Document 03/11/21 14:30 LRN (Rec: 03/11/21 15:37 LRN [id number]) Out-Patient Physical Therapy Visit Information Visit Information Visit Type Progress Note Visit Start Time 14:30 Visit Stop Time 15:10 Total Visit Minutes 40 Visit Number 10 Evaluation Information Evaluation Date 02/04/21 Precautions Precautions 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 PT-OP-B Current Condition Start: 01/31/21 17:56 Freq: Status: Active Protocol: Document 02/04/21 08:18 LRN (Rec: 02/04/21 09:07 LRN [id number]) Current Condition History of Current Condition Onset Date November 2019 Current Complaints Having to use walker to walk. 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 In hospital 3-4 days, transferred to [facility] in [place] (group home) and found PT to not be helpful, then home health care after 14 days of quarrentine after catching COVID. Had home health PT for 3 months. Now seeking outpatient PT independently. States she needs help walking without a walker. Have fallen a few times immediately after returning home, due to weak L leg. Doesn't have feeling in feet and has sharp pains in feet; therefore on Gabapentin. Uses topical CBD cream that helps a little. During the day and while walking around, no pain. Pain in feet is mainly at night when trying to go to sleep, or sitting watching TV. Prior Treatments and Tests Few years ago had PT for neuropathy. Has treadmill at home that she uses sometimes. Treatment Goals Patient/Caregiver Goals Pt goal is to be able to walk without a walker using a cane, improve endurance and balance and pt agreeable to being placed on a HEP at discharge. 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 Had to sit on bench to rest. Baseline Function- Other Up/down steps using 2 railings . Current Functional Impairments (Reported) Functional Limitations- ADL's Ambs around home occasioinally without walker (kitchen to living room, living room to laudry room and bathrrom). Walks on deck with FWW. Functional Limitations- Mobility/Gait Ambulates with FWW independently. 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 Can go up/down steps using 2 railings. Personal Factors Other Personal Factors That May Effect Neuropathy of the feet. Therapy/Recovery PT-OP-C Subjective Start: 01/31/21 17:56 Freq: Status: Active Protocol: Document 03/11/21 14:30 LRN (Rec: 03/11/21 15:37 LRN [id number]) OP-PT Subjective Patient Comments Patient Comments States she does the exercises and she feels she is improving . PT-OP-D Balance Start: 01/31/21 17:56 Freq: Status: Active Protocol: Document 03/11/21 14:30 LRN (Rec: 03/11/21 15:37 LRN [id number]) Tinetti Balance Assessment Sitting Balance Sitting Balance Steady, safe Arising from Chair Ability to Arise Able, w/o using arms Standing Balance Immediate Standing Balance Steady w/o support Standing Balance Steady, wide stance Nudged Response Steady Standing with Eyes Closed Unsteady Turning Step Pattern Turning 360 Degrees Continuous steps Stability Turning 360 Degrees Unsteady, grabs/staggers Sitting Down Sitting Down Safe, steady Gait and Step Initiation of Gait No hesitancy Right Foot Step Length Does pass stance foot Right Foot Step Height Completely clears floor Left Foot Step Length Does pass stance foot Left Foot Step Height Completely clears floor Step Description Step Symmetry Step length not equal Gait Description Path Description Mild/moderate deviation Trunk Description Marked sway or uses aide Walking Stance Heels together Scoring and Interpretation Tinetti Composite Score (points) 18 Tinetti Impairment Rating from Composite 20 to <40% Impaired (Score 17- Score 22) PT-OP-E Functional Tests Start: 01/31/21 17:56 Freq: Status: Active Protocol: Document 03/08/21 14:30 SP (Rec: 03/08/21 16:44 SP [id number]) Functional Tests Tinetti Balance and Gait Assessment Balance Score 8 Gait Score 4 Composite Score 12 Balance Score Impairment Rating 40 to <60% Impaired (Score 7-9 ) Gait Score Impairment Rating 40 to <60% Impaired (Score 5-7 ) Composite Score Impairment Rating 80 to <100% Impaired (Score 1- 5) Other 5TSTS Name of Test 5 STS for time Score 19 sec PT-OP-G Mobility & Gait Start: 01/31/21 17:56 Freq: Status: Active Protocol: Document 02/04/21 08:18 LRN (Rec: 02/04/21 09:07 LRN [id number]) OP Gait Assessment Gait Gait Assistance Required: Independent Distance (Feet) 100 Able to Maintain Weight Bearing Status Yes During Gait Assistive Devices Assistive Device Front Wheeled Walker Gait Deviations General Gait Pattern Decreased Stride Length,Flexed Trunk,Lateral Trunk Lean, Narrow Based Gait,Step-to Gait Factors Limiting Gait Function Factors Limiting Gait Function Decreased Activity Tolerance, Decreased Strength,Poor Balance PT-OP-J Posture/Palpation/Skin Start: 01/31/21 17:56 Freq: Status: Active Protocol: Document 02/04/21 08:18 LRN (Rec: 02/04/21 09:07 LRN [id number]) Posture Evaluation Position Standing Head/C-Spine Posture Forward Head T-Spine Posture Increased Kyphosis L-Spine Posture Flattened Shoulder Posture (L) Elevated Pelvis Posture Anteriorly Tilted,Posterior Tilted Weight Distribution Weight Shifted Right Knee Posture (L) Genu Valgus,(R) Genu Valgus Comments Posture Comments Foot deformity FB at hips ~35 deg's, L hip retracted. PT-OP-M Strength Start: 01/31/21 17:56 Freq: Status: Active Protocol: Document 02/04/21 08:18 LRN (Rec: 02/04/21 09:07 LRN [id number]) Hip Strength Hip Manual Muscle Testing Right Flexion (L2) 5 Normal Left Flexion (L2) 4 Good Knee Strength Knee Manual Muscle Testing Right Comments Generally 5/5 Left Comments Generally 5/5 Ankle/Foot Strength Ankle and Foot Manual Muscle Testing Right Comments Generally 5/5 Left Inversion 3 Fair Comments L foot deformity limiting IV mobility. PT-OP-Q Treatments Start: 01/31/21 17:56 Freq: Status: Active Protocol: Document 03/11/21 14:30 LRN (Rec: 03/11/21 15:37 LRN [id number]) Gait Training Gait Activity Gait Quad Cane Description Working farily light to somewhat hard Device Used SBQC in RUE Level of Assistance CGA Surface firm Distance/Duration 1' x 5 with standing and sitting rests Treatment Focus quad facilitation during swing through, heel toe R>L LE, LLE toe clearance Comments cue L>RLE knee extension heel >toe descent, L foot cleareance and increase stride with safe stride for stability. Pt needing cuing for not exercising into exertion > somewhat hard. Pt cued to work between fairly light and somewhat hard range. Neuro Re-Education Treatment Balance Activities Turning Details Turning L & R without AD Surface Level Equipment GB Reps/Duration 2x Comments Pt slow but continuous with turning. Transfer stability sit<>stand Details Sit<>Stand with stability gained after movement Surface Level Equipment GB/No use of UE's Reps/Duration 8' Comments On standing pt needed time to gain balance, and needed sitting rest occasionally between standing. Standing EO, EC Details Standing balance EO/EC Surface Level Equipment GB Comments Pt able to balance with eyes closed for very short periods (~10 secs), showing much trunk sway. Self-Care/Home Management Treatment Education Other Education Educated pt in VANCE Percevied Exertion scale with pt to work between 11 fairly light and 13 somewhat hard range. Pt needed repeated cuing of awareness of her working exertion level. PT-OP-T Assessment and Plan Start: 01/31/21 17:56 Freq: Status: Active Protocol: Document 03/11/21 14:30 LRN (Rec: 03/11/21 15:37 LRN [id number]) Physical Therapy Assessment Rehab Potential Rehabilitation Potential Good Evaluation Complexity Number of Personal Factors/Comorbidities 1-2 Number of Body Systems Impaired 4 or More Clinical Presentation at Evaluation Evolving Impairments Impairments Activity Tolerance,Balance, Gait,Posture,Strength, Transfers Goals Four Impairment Decreased endurance (30 sec sit to stand - 9 reps; 5TSTS = 15.7 secs) Short Term Goal (STG) Improve 5TSTS TO 12.6 secs ( Norm for 80-89 yo is 14.8 sec' s) 02/21/21: progressin reps in 16 sec. 03/08/21: 5 reps 19 sec ( moderate retro lean x1 self recovery quick sit into chair no UE support). (03/11/21: 17 secs with good control w/o use of hands) STG Duration 03/08/21 (03/11/21: More time but better control when sitting) Intermediate Goal (LTG) Improve 30 sit to stand to 10- 15 reps (norm for ages 75-79 is 10-15 reps) 02/21/21: progressin.5 reps in 30 sec. 03/01/21: progressing 10 reps in 30 sec today. 03/08/21: 12 reps in 30 sec no UE support- 1 retro lean quick descent self recovery. LTG Duration 05/05/21 (03/08/21: MET GOAL) Three Impairment Decreased Balance per ARRIETA score of 18 (60<80% impaired) Short Term Goal (STG) Improve standing reach (5 or more safely), and ability to stand and look behind without loss of balance. 03/08/21: porgressing: able to reach 5 outside PAULO without LOB. STG Duration 03/22/21 (03/08/21: GOAL MET) Intermediate Goal (LTG) ARRIETA balance score of 34-44 ( 20<40% impaired) 03/08/21: 23/56- still high risk for falls. LTG Duration 05/05/21 (03/08/21: Progressing) Two Impairment Decreased gait with need of FWW for safety (Tinetti 13 = high fall risk) Short Term Goal (STG) Overall Tinetti score 23-27 (1 <20% impaired) or score 19-24 (medium fall risk, <14 high fall) risk). 02/21/21: progressing 16, high risk for falls. 03/08/21: 09/17, high risk for falls. 03/11/21: Tinetti score is 18 (20<40% impaired) STG Duration 03/22/21 (03/11/21: ) Intermediate Goal (LTG) Pt will be able to walk without a cane safely 100' or more. 03/08/21: progressing: gait 152 ft required stand rest for recovery 10-15 sec, provided SBA w/ gait belt for safety. LTG Duration 05/05/21 (03/08/21: Progressing) One Impairment Lacks appropriate HEP. Short Term Goal (STG) Improve ABC score 41-60 (40<60 % impaired). Eval score is 10 .62. 02/26/21: 31% 03/08/21: 71.875 % STG Duration 03/22/21 Clipping Marker Goal (LTG) Pt will be independent with a self care HEP to promote improving LE strength and balance. 03/05/21 HEP: ankle PF&EV TB, LAQ TB , posture scap squeeze w/ shld ER TB, heel toe walking, self STMs to calf/ quad/HS, eccentric HS curl TB, coordination foot ruano/ ankle IV/EV side taps/. LTG Duration 05/05/21 (03/05/21: Progressed) Progress Towards Goals Progress Comments Overall, pt improving in Sit to Stand, increased by 2 reps in 30 , improved ARRIETA 18/56 to 23/56 and Tinetti from 13 to 18. Assessment Summary Assessment Pt is makiing gains towards goals. She is improving in balance per ARRIETA and Tinetti scores. She is slow to improve in endurance and becomes short of breath after 1 minute of walking. Functionally she has improved per ABC score from 10 to 71%. Pt will benefit from continued skilled physical therapy to progress towards goals stated above. Physical Therapy Plan Frequency and Duration Frequency of Treatment 2x/Week Plan of Care Start Date 02/04/21 Plan of Care End Date 05/05/21 Therapeutic Interventions Therapeutic Interventions Balance Training,Coordination Training,Gait Training,Home Exercise Program,Manual Therapy,Neuromuscular Re- education,Patient/Caregiver Education,Self-Care/Home Management,Therapeutic Activities,Therapeutic Exercises Modalities Cold Pack/Ice Massage,Hot Packs Next Visit Focus/Plan Next Note Type Treatment Note Next Visit Plan Next tx continue standing strengthening, balance. Review corner balance, LAQ TB, gait using QC. POC: Gait training using SBQC, balance training in mirror, postural training, LLE (ankles , hips & ecc knee strengthening, proprioceptive/ coordination training foot taps ruano/ ankle IV/EV movements, and progression in HEP.
--- NOTE | 2021-03-13 16:59 | PT.OTN ---
Current Diagnoses Muscle weakness (generalized) (03/13/21) Difficulty in walking, not elsewhere classified (03/13/21) Abnormal posture (03/13/21) Other symptoms and signs involving the nervous system (03/13/21) Physical Therapy Treatment Note PT-OP-A Visit Information Start: 01/31/21 17:56 Freq: Status: Active Protocol: Document 03/13/21 16:00 AW (Rec: 03/13/21 16:03 AW [id number]) Out-Patient Physical Therapy Visit Information Visit Information Visit Type Treatment Note Visit Start Time 15:20 Visit Stop Time 16:00 Total Visit Minutes 40 Evaluation Information Evaluation Date 02/04/21 Precautions Precautions 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 PT-OP-B Current Condition Start: 01/31/21 17:56 Freq: Status: Active Protocol: Document 02/04/21 08:18 LRN (Rec: 02/04/21 09:07 LRN [id number]) Current Condition History of Current Condition Onset Date November 2019 Current Complaints Having to use walker to walk. 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 In hospital 3-4 days, transferred to [facility] in [place] (fdc) and found PT to not be helpful, then home health care after 14 days of quarrentine after catching COVID. Had home health PT for 3 months. Now seeking outpatient PT independently. States she needs help walking without a walker. Have fallen a few times immediately after returning home, due to weak L leg. Doesn't have feeling in feet and has sharp pains in feet; therefore on Gabapentin. Uses topical CBD cream that helps a little. During the day and while walking around, no pain. Pain in feet is mainly at night when trying to go to sleep, or sitting watching TV. Prior Treatments and Tests Few years ago had PT for neuropathy. Has treadmill at home that she uses sometimes. Treatment Goals Patient/Caregiver Goals Pt goal is to be able to walk without a walker using a cane, improve endurance and balance and pt agreeable to being placed on a HEP at discharge. 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 Had to sit on bench to rest. Baseline Function- Other Up/down steps using 2 railings . Current Functional Impairments (Reported) Functional Limitations- ADL's Ambs around home occasioinally without walker (kitchen to living room, living room to laudry room and bathrrom). Walks on deck with FWW. Functional Limitations- Mobility/Gait Ambulates with FWW independently. 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 Can go up/down steps using 2 railings. Personal Factors Other Personal Factors That May Effect Neuropathy of the feet. Therapy/Recovery PT-OP-C Subjective Start: 01/31/21 17:56 Freq: Status: Active Protocol: Document 03/13/21 16:00 AW (Rec: 03/13/21 16:03 AW [id number]) OP-PT Subjective Patient Comments Patient Comments Pt feels she is walking 30 feet x 4 on her deck with SBQC but otherwise uses her FWW PT-OP-D Balance Start: 01/31/21 17:56 Freq: Status: Active Protocol: Document 03/11/21 14:30 LRN (Rec: 03/11/21 15:37 LRN [id number]) Tinetti Balance Assessment Sitting Balance Sitting Balance Steady, safe Arising from Chair Ability to Arise Able, w/o using arms Standing Balance Immediate Standing Balance Steady w/o support Standing Balance Steady, wide stance Nudged Response Steady Standing with Eyes Closed Unsteady Turning Step Pattern Turning 360 Degrees Continuous steps Stability Turning 360 Degrees Unsteady, grabs/staggers Sitting Down Sitting Down Safe, steady Gait and Step Initiation of Gait No hesitancy Right Foot Step Length Does pass stance foot Right Foot Step Height Completely clears floor Left Foot Step Length Does pass stance foot Left Foot Step Height Completely clears floor Step Description Step Symmetry Step length not equal Gait Description Path Description Mild/moderate deviation Trunk Description Marked sway or uses aide Walking Stance Heels together Scoring and Interpretation Tinetti Composite Score (points) 18 Tinetti Impairment Rating from Composite 20 to <40% Impaired (Score 17- Score 22) PT-OP-E Functional Tests Start: 01/31/21 17:56 Freq: Status: Active Protocol: Document 03/08/21 14:30 SP (Rec: 03/08/21 16:44 SP [id number]) Functional Tests Tinetti Balance and Gait Assessment Balance Score 8 Gait Score 4 Composite Score 12 Balance Score Impairment Rating 40 to <60% Impaired (Score 7-9 ) Gait Score Impairment Rating 40 to <60% Impaired (Score 5-7 ) Composite Score Impairment Rating 80 to <100% Impaired (Score 1- 5) Other 5TSTS Name of Test 5 STS for time Score 19 sec PT-OP-G Mobility & Gait Start: 01/31/21 17:56 Freq: Status: Active Protocol: Document 02/04/21 08:18 LRN (Rec: 02/04/21 09:07 LRN [id number]) OP Gait Assessment Gait Gait Assistance Required: Independent Distance (Feet) 100 Able to Maintain Weight Bearing Status Yes During Gait Assistive Devices Assistive Device Front Wheeled Walker Gait Deviations General Gait Pattern Decreased Stride Length,Flexed Trunk,Lateral Trunk Lean, Narrow Based Gait,Step-to Gait Factors Limiting Gait Function Factors Limiting Gait Function Decreased Activity Tolerance, Decreased Strength,Poor Balance PT-OP-J Posture/Palpation/Skin Start: 01/31/21 17:56 Freq: Status: Active Protocol: Document 02/04/21 08:18 LRN (Rec: 02/04/21 09:07 LRN [id number]) Posture Evaluation Position Standing Head/C-Spine Posture Forward Head T-Spine Posture Increased Kyphosis L-Spine Posture Flattened Shoulder Posture (L) Elevated Pelvis Posture Anteriorly Tilted,Posterior Tilted Weight Distribution Weight Shifted Right Knee Posture (L) Genu Valgus,(R) Genu Valgus Comments Posture Comments Foot deformity FB at hips ~35 deg's, L hip retracted. PT-OP-M Strength Start: 01/31/21 17:56 Freq: Status: Active Protocol: Document 02/04/21 08:18 LRN (Rec: 02/04/21 09:07 LRN [id number]) Hip Strength Hip Manual Muscle Testing Right Flexion (L2) 5 Normal Left Flexion (L2) 4 Good Knee Strength Knee Manual Muscle Testing Right Comments Generally 5/5 Left Comments Generally 5/5 Ankle/Foot Strength Ankle and Foot Manual Muscle Testing Right Comments Generally 5/5 Left Inversion 3 Fair Comments L foot deformity limiting IV mobility. PT-OP-Q Treatments Start: 01/31/21 17:56 Freq: Status: Active Protocol: Document 03/13/21 16:00 AW (Rec: 03/13/21 16:03 AW [id number]) Therapeutic Exercises Sitting Exercises coordination foot taps opp LE Sitting Exercise Name tap opp dorsal foot, ruano, knee Side bilateral Resistance AROM Equipment Used seated in 18 chair Reps/Minutes 4 min Comments looking for awareness then perform not looking Eccentric knee extension Sitting Exercise Name knee flexion con/ eccentric Side bilateral Resistance Tb #2 (PT anchored TB) Reps/Minutes x10 Comments cued slow eccentric control LAQ Sitting Exercise Name w/ PF of ankle- reviewed HEP Side bilateral Resistance YTB in clinic Reps/Minutes 2x10 Comments cued slow pacing Standing Exercises sit <> stands Standing Exercise Name no UE support, 4WW front for safety Equipment Used 18 chair Reps/Minutes 8 x 3 Comments good forward weight shift and acceptance, cued control of descent Gait Training Gait Activity Gait Quad Cane Description Working farily light to somewhat hard Device Used SBQC in RUE Level of Assistance CGA Surface firm Distance/Duration 1' x 5 with sit/stand breaks in between laps Treatment Focus quad facilitation during swing through, heel toe R>L LE, LLE toe clearance Comments Cued increased LLE stance time , RLE step length Neuro Re-Education Treatment Coordination Activities foot taps Details foot taps Equipment 4 step Reps/Duration 1 min x 3 Comments SBQC RUE and INTAKE COUNSELOR LUE PT-OP-T Assessment and Plan Start: 01/31/21 17:56 Freq: Status: Active Protocol: Document 03/13/21 16:00 AW (Rec: 03/13/21 16:59 AW [id number]) Physical Therapy Assessment Goals Four Impairment Decreased endurance (30 sec sit to stand - 9 reps; 5TSTS = 15.7 secs) Short Term Goal (STG) Improve 5TSTS TO 12.6 secs ( Norm for 80-89 yo is 14.8 sec' s) 02/21/21: progressin reps in 16 sec. 03/08/21: 5 reps 19 sec ( moderate retro lean x1 self recovery quick sit into chair no UE support). (03/11/21: 17 secs with good control w/o use of hands) STG Duration 03/08/21 (03/11/21: More time but better control when sitting) Correction Goal (LTG) Improve 30 sit to stand to 10- 15 reps (norm for ages 75-79 is 10-15 reps) 02/21/21: progressin.5 reps in 30 sec. 03/01/21: progressing 10 reps in 30 sec today. 03/08/21: 12 reps in 30 sec no UE support- 1 retro lean quick descent self recovery. LTG Duration 05/05/21 (03/08/21: MET GOAL) Three Impairment Decreased Balance per ARRIETA score of 18 (60<80% impaired) Short Term Goal (STG) Improve standing reach (5 or more safely), and ability to stand and look behind without loss of balance. 03/08/21: porgressing: able to reach 5 outside PAULO without LOB. STG Duration 03/22/21 (03/08/21: GOAL MET) Medical Technologist Goal (LTG) ARRIETA balance score of 34-44 ( 20<40% impaired) 03/08/21: 23/56- still high risk for falls. LTG Duration 05/05/21 (03/08/21: Progressing) Two Impairment Decreased gait with need of FWW for safety (Tinetti 13 = high fall risk) Short Term Goal (STG) Overall Tinetti score 23-27 (1 <20% impaired) or score 19-24 (medium fall risk, <14 high fall) risk). 02/21/21: progressing , high risk for falls. 03/08/21: 09/17, high risk for falls. 03/11/21: Tinetti score is 18 (20<40% impaired) STG Duration 03/22/21 (03/11/21: ) Correction Goal (LTG) Pt will be able to walk without a cane safely 100' or more. 03/08/21: progressing: gait 152 ft required stand rest for recovery 10-15 sec, provided SBA w/ gait belt for safety. LTG Duration 05/05/21 (03/08/21: Progressing) One Impairment Lacks appropriate HEP. Short Term Goal (STG) Improve ABC score 41-60 (40<60 % impaired). Eval score is 10 .62. 02/26/21: 31% 03/08/21: 71.875 % STG Duration 03/22/21 Correction Goal (LTG) Pt will be independent with a self care HEP to promote improving LE strength and balance. 03/05/21 HEP: ankle PF&EV TB, LAQ TB , posture scap squeeze w/ shld ER TB, heel toe walking, self STMs to calf/ quad/HS, eccentric HS curl TB, coordination foot ruano/ ankle IV/EV side taps/. LTG Duration 05/05/21 (03/05/21: Progressed) Assessment Summary Assessment Pt tolerated fewer breaks during gait training today with SBQC but remains limited in activity tolerance, Will benefit from continued therapy to address endurance and self -efficacy deficits. Physical Therapy Plan Frequency and Duration Frequency of Treatment 2x/Week Plan of Care Start Date 02/04/21 Plan of Care End Date 05/05/21 Therapeutic Interventions Therapeutic Interventions Balance Training,Coordination Training,Gait Training,Home Exercise Program,Manual Therapy,Neuromuscular Re- education,Patient/Caregiver Education,Self-Care/Home Management,Therapeutic Activities,Therapeutic Exercises Modalities Cold Pack/Ice Massage,Hot Packs Next Visit Focus/Plan Next Note Type Treatment Note Next Visit Plan Next tx continue standing strengthening, balance. Review corner balance, LAQ TB, gait using QC. POC: Gait training using SBQC, balance training in mirror, postural training, LLE (ankles , hips & ecc knee strengthening, proprioceptive/ coordination training foot taps ruano/ ankle IV/EV movements, and progression in HEP.
--- NOTE | 2021-03-19 17:19 | PT.OTN ---
Current Diagnoses Muscle weakness (generalized) (03/19/21) Difficulty in walking, not elsewhere classified (03/19/21) Abnormal posture (03/19/21) Other symptoms and signs involving the nervous system (03/19/21) Physical Therapy Treatment Note PT-OP-A Visit Information Start: 01/31/21 17:56 Freq: Status: Active Protocol: Document 03/19/21 15:15 AW (Rec: 03/19/21 15:18 AW [id number]) Out-Patient Physical Therapy Visit Information Visit Information Visit Type Treatment Note Visit Start Time 14:28 Visit Stop Time 15:15 Total Visit Minutes 47 Visit Number 12 Number of LINER MACHINE OPERATOR HELPER Visits 0 Evaluation Information Evaluation Date 02/04/21 Precautions Precautions 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 PT-OP-B Current Condition Start: 01/31/21 17:56 Freq: Status: Active Protocol: Document 02/04/21 08:18 LRN (Rec: 02/04/21 09:07 LRN [id number]) Current Condition History of Current Condition Onset Date November 2019 Current Complaints Having to use walker to walk. 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 In hospital 3-4 days, transferred to [facility] in [place] (prison) and found PT to not be helpful, then home health care after 14 days of quarrentine after catching COVID. Had home health PT for 3 months. Now seeking outpatient PT independently. States she needs help walking without a walker. Have fallen a few times immediately after returning home, due to weak L leg. Doesn't have feeling in feet and has sharp pains in feet; therefore on Gabapentin. Uses topical CBD cream that helps a little. During the day and while walking around, no pain. Pain in feet is mainly at night when trying to go to sleep, or sitting watching TV. Prior Treatments and Tests Few years ago had PT for neuropathy. Has treadmill at home that she uses sometimes. Treatment Goals Patient/Caregiver Goals Pt goal is to be able to walk without a walker using a cane, improve endurance and balance and pt agreeable to being placed on a HEP at discharge. 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 Had to sit on bench to rest. Baseline Function- Other Up/down steps using 2 railings . Current Functional Impairments (Reported) Functional Limitations- ADL's Ambs around home occasioinally without walker (kitchen to living room, living room to laudry room and bathrrom). Walks on deck with FWW. Functional Limitations- Mobility/Gait Ambulates with FWW independently. 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 Can go up/down steps using 2 railings. Personal Factors Other Personal Factors That May Effect Neuropathy of the feet. Therapy/Recovery PT-OP-C Subjective Start: 01/31/21 17:56 Freq: Status: Active Protocol: Document 03/19/21 15:15 AW (Rec: 03/19/21 15:18 AW [id number]) OP-PT Subjective Patient Comments Patient Comments Pt has been less active outside in the heat but has continued with walking inside using SBQC PT-OP-D Balance Start: 01/31/21 17:56 Freq: Status: Active Protocol: Document 03/11/21 14:30 LRN (Rec: 03/11/21 15:37 LRN [id number]) Tinetti Balance Assessment Sitting Balance Sitting Balance Steady, safe Arising from Chair Ability to Arise Able, w/o using arms Standing Balance Immediate Standing Balance Steady w/o support Standing Balance Steady, wide stance Nudged Response Steady Standing with Eyes Closed Unsteady Turning Step Pattern Turning 360 Degrees Continuous steps Stability Turning 360 Degrees Unsteady, grabs/staggers Sitting Down Sitting Down Safe, steady Gait and Step Initiation of Gait No hesitancy Right Foot Step Length Does pass stance foot Right Foot Step Height Completely clears floor Left Foot Step Length Does pass stance foot Left Foot Step Height Completely clears floor Step Description Step Symmetry Step length not equal Gait Description Path Description Mild/moderate deviation Trunk Description Marked sway or uses aide Walking Stance Heels together Scoring and Interpretation Tinetti Composite Score (points) 18 Tinetti Impairment Rating from Composite 20 to <40% Impaired (Score 17- Score 22) PT-OP-E Functional Tests Start: 01/31/21 17:56 Freq: Status: Active Protocol: Document 03/08/21 14:30 SP (Rec: 03/08/21 16:44 SP [id number]) Functional Tests Tinetti Balance and Gait Assessment Balance Score 8 Gait Score 4 Composite Score 12 Balance Score Impairment Rating 40 to <60% Impaired (Score 7-9 ) Gait Score Impairment Rating 40 to <60% Impaired (Score 5-7 ) Composite Score Impairment Rating 80 to <100% Impaired (Score 1- 5) Other 5TSTS Name of Test 5 STS for time Score 19 sec PT-OP-G Mobility & Gait Start: 01/31/21 17:56 Freq: Status: Active Protocol: Document 02/04/21 08:18 LRN (Rec: 02/04/21 09:07 LRN [id number]) OP Gait Assessment Gait Gait Assistance Required: Independent Distance (Feet) 100 Able to Maintain Weight Bearing Status Yes During Gait Assistive Devices Assistive Device Front Wheeled Walker Gait Deviations General Gait Pattern Decreased Stride Length,Flexed Trunk,Lateral Trunk Lean, Narrow Based Gait,Step-to Gait Factors Limiting Gait Function Factors Limiting Gait Function Decreased Activity Tolerance, Decreased Strength,Poor Balance PT-OP-J Posture/Palpation/Skin Start: 01/31/21 17:56 Freq: Status: Active Protocol: Document 02/04/21 08:18 LRN (Rec: 02/04/21 09:07 LRN [id number]) Posture Evaluation Position Standing Head/C-Spine Posture Forward Head T-Spine Posture Increased Kyphosis L-Spine Posture Flattened Shoulder Posture (L) Elevated Pelvis Posture Anteriorly Tilted,Posterior Tilted Weight Distribution Weight Shifted Right Knee Posture (L) Genu Valgus,(R) Genu Valgus Comments Posture Comments Foot deformity FB at hips ~35 deg's, L hip retracted. PT-OP-M Strength Start: 01/31/21 17:56 Freq: Status: Active Protocol: Document 02/04/21 08:18 LRN (Rec: 02/04/21 09:07 LRN [id number]) Hip Strength Hip Manual Muscle Testing Right Flexion (L2) 5 Normal Left Flexion (L2) 4 Good Knee Strength Knee Manual Muscle Testing Right Comments Generally 5/5 Left Comments Generally 5/5 Ankle/Foot Strength Ankle and Foot Manual Muscle Testing Right Comments Generally 5/5 Left Inversion 3 Fair Comments L foot deformity limiting IV mobility. PT-OP-Q Treatments Start: 01/31/21 17:56 Freq: Status: Active Protocol: Document 03/19/21 15:15 AW (Rec: 03/19/21 15:18 AW [id number]) Cardio Equipment Treadmill Duration (Minutes) 6 Speed 0.5-0.7 mph Incline 0 (1-2 Ue contact) Other intermittent cuing longer stride, knee extension, heel toe LLE Therapeutic Exercises Sitting Exercises foot tapping/coordination Sitting Exercise Name foot tapping/coordination Reps/Minutes 4 min Comments mirrored PT tapping, alternating, crossing over coordination foot taps opp LE Sitting Exercise Name tap opp dorsal foot, ruano, knee Side bilateral Resistance AROM Equipment Used seated in 18 chair Reps/Minutes 4 min Comments looking for awareness then perform not looking Eccentric knee extension Sitting Exercise Name knee flexion con/ eccentric Side bilateral Resistance Tb #3 (PT anchored TB) Reps/Minutes x10 Comments cued slow eccentric control Standing Exercises sit <> stands Standing Exercise Name no UE support, 4WW front for safety Equipment Used 18 chair Reps/Minutes 8 x 3 Comments good forward weight shift and acceptance, cued control of descent Gait Training Gait Activity Gait Quad Cane Description Working farily light to somewhat hard Device Used SBQC in RUE Level of Assistance CGA Surface firm Distance/Duration 1' x 3 with sit/stand breaks in between laps Treatment Focus quad facilitation during swing through, heel toe R>L LE, LLE toe clearance Comments metronome for reyna set at 75 bpm; pt more fatigued today , unable to tolerate more activity Neuro Re-Education Treatment Balance Activities Standing EO, EC Details Standing balance with head turns Surface Level Equipment GB Reps/Duration 5 min Comments Pt needs min assist for recovery with head turns and nods but is able to perform ~3 reps each direction before needing assist. Coordination Activities foot taps Details foot taps Equipment 3 step Reps/Duration 1 min x 5 Comments SBQC RUE and REHAB SPEC LUE; faded visual feedback and then faded REHAB SPEC; lacking both, pt able to perform 6 reps before fatigue and needing assist for balance PT-OP-T Assessment and Plan Start: 01/31/21 17:56 Freq: Status: Active Protocol: Document 03/19/21 15:15 AW (Rec: 03/19/21 17:18 AW [id number]) Physical Therapy Assessment Goals Four Impairment Decreased endurance (30 sec sit to stand - 9 reps; 5TSTS = 15.7 secs) Short Term Goal (STG) Improve 5TSTS TO 12.6 secs ( Norm for 80-89 yo is 14.8 sec' s) 02/21/21: progressin reps in 16 sec. 03/08/21: 5 reps 19 sec ( moderate retro lean x1 self recovery quick sit into chair no UE support). (03/11/21: 17 secs with good control w/o use of hands) STG Duration 03/08/21 (03/11/21: More time but better control when sitting) Children'S Aide Goal (LTG) Improve 30 sit to stand to 10- 15 reps (norm for ages 75-79 is 10-15 reps) 02/21/21: progressin.5 reps in 30 sec. 03/01/21: progressing 10 reps in 30 sec today. 03/08/21: 12 reps in 30 sec no UE support- 1 retro lean quick descent self recovery. LTG Duration 05/05/21 (03/08/21: MET GOAL) Three Impairment Decreased Balance per ARRIETA score of 18 (60<80% impaired) Short Term Goal (STG) Improve standing reach (5 or more safely), and ability to stand and look behind without loss of balance. 03/08/21: porgressing: able to reach 5 outside PAULO without LOB. STG Duration 03/22/21 (03/08/21: GOAL MET) Long-Term Goal (LTG) ARRIETA balance score of 34-44 ( 20<40% impaired) 03/08/21: 23/56- still high risk for falls. LTG Duration 05/05/21 (03/08/21: Progressing) Two Impairment Decreased gait with need of FWW for safety (Tinetti 13 = high fall risk) Short Term Goal (STG) Overall Tinetti score 23-27 (1 <20% impaired) or score 19-24 (medium fall risk, <14 high fall) risk). 02/21/21: progressing , high risk for falls. 03/08/21: 09/17, high risk for falls. 03/11/21: Tinetti score is 18 (20<40% impaired) STG Duration 03/22/21 (03/11/21: ) Long-Term Goal (LTG) Pt will be able to walk without a cane safely 100' or more. 03/08/21: progressing: gait 152 ft required stand rest for recovery 10-15 sec, provided SBA w/ gait belt for safety. LTG Duration 05/05/21 (03/08/21: Progressing) One Impairment Lacks appropriate HEP. Short Term Goal (STG) Improve ABC score 41-60 (40<60 % impaired). Eval score is 10 .62. 02/26/21: 31% 03/08/21: 71.875 % STG Duration 03/22/21 Children'S Aide Goal (LTG) Pt will be independent with a self care HEP to promote improving LE strength and balance. 03/05/21 HEP: ankle PF&EV TB, LAQ TB , posture scap squeeze w/ shld ER TB, heel toe walking, self STMs to calf/ quad/HS, eccentric HS curl TB, coordination foot ruano/ ankle IV/EV side taps/. LTG Duration 05/05/21 (03/05/21: Progressed) Assessment Summary Assessment Pt has decreased tolerance today, possibly due to heat past several days. She needs more breaks and tolerates shorter bouts of gait training with SBQC. Physical Therapy Plan Frequency and Duration Frequency of Treatment 2x/Week Plan of Care Start Date 02/04/21 Plan of Care End Date 05/05/21 Therapeutic Interventions Therapeutic Interventions Balance Training,Coordination Training,Gait Training,Home Exercise Program,Manual Therapy,Neuromuscular Re- education,Patient/Caregiver Education,Self-Care/Home Management,Therapeutic Activities,Therapeutic Exercises Modalities Cold Pack/Ice Massage,Hot Packs Next Visit Focus/Plan Next Note Type Treatment Note Next Visit Plan Next tx continue standing strengthening, balance. Review corner balance, LAQ TB, gait using QC. POC: Gait training using SBQC, balance training in mirror, postural training, LLE (ankles , hips & ecc knee strengthening, proprioceptive/ coordination training foot taps ruano/ ankle IV/EV movements, and progression in HEP.
--- NOTE | 2021-03-22 16:31 | PT.OTN ---
Current Diagnoses Muscle weakness (generalized) (03/22/21) Difficulty in walking, not elsewhere classified (03/22/21) Abnormal posture (03/22/21) Other symptoms and signs involving the nervous system (03/22/21) Physical Therapy Treatment Note PT-OP-A Visit Information Start: 01/31/21 17:56 Freq: Status: Active Protocol: Document 03/22/21 14:21 LRN (Rec: 03/22/21 15:06 LRN [id number]) Out-Patient Physical Therapy Visit Information Visit Information Visit Type Treatment Note Visit Note 3 after PN Visit Start Time 14:21 Visit Stop Time 15:03 Total Visit Minutes 42 Visit Number 13 Evaluation Information Evaluation Date 02/04/21 Precautions Precautions 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 PT-OP-B Current Condition Start: 01/31/21 17:56 Freq: Status: Active Protocol: Document 02/04/21 08:18 LRN (Rec: 02/04/21 09:07 LRN [id number]) Current Condition History of Current Condition Onset Date November 2019 Current Complaints Having to use walker to walk. 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 In hospital 3-4 days, transferred to [facility] in [place] (retirement) and found PT to not be helpful, then home health care after 14 days of quarrentine after catching COVID. Had home health PT for 3 months. Now seeking outpatient PT independently. States she needs help walking without a walker. Have fallen a few times immediately after returning home, due to weak L leg. Doesn't have feeling in feet and has sharp pains in feet; therefore on Gabapentin. Uses topical CBD cream that helps a little. During the day and while walking around, no pain. Pain in feet is mainly at night when trying to go to sleep, or sitting watching TV. Prior Treatments and Tests Few years ago had PT for neuropathy. Has treadmill at home that she uses sometimes. Treatment Goals Patient/Caregiver Goals Pt goal is to be able to walk without a walker using a cane, improve endurance and balance and pt agreeable to being placed on a HEP at discharge. 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 Had to sit on bench to rest. Baseline Function- Other Up/down steps using 2 railings . Current Functional Impairments (Reported) Functional Limitations- ADL's Ambs around home occasioinally without walker (kitchen to living room, living room to laudry room and bathrrom). Walks on deck with FWW. Functional Limitations- Mobility/Gait Ambulates with FWW independently. 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 Can go up/down steps using 2 railings. Personal Factors Other Personal Factors That May Effect Neuropathy of the feet. Therapy/Recovery PT-OP-C Subjective Start: 01/31/21 17:56 Freq: Status: Active Protocol: Document 03/22/21 14:21 LRN (Rec: 03/22/21 15:06 LRN [id number]) OP-PT Subjective Patient Comments Patient Comments Has been walking on deck with cane. Has been getting out using FWW and doing TBand ex's . PT-OP-D Balance Start: 01/31/21 17:56 Freq: Status: Active Protocol: Document 03/11/21 14:30 LRN (Rec: 03/11/21 15:37 LRN [id number]) Tinetti Balance Assessment Sitting Balance Sitting Balance Steady, safe Arising from Chair Ability to Arise Able, w/o using arms Standing Balance Immediate Standing Balance Steady w/o support Standing Balance Steady, wide stance Nudged Response Steady Standing with Eyes Closed Unsteady Turning Step Pattern Turning 360 Degrees Continuous steps Stability Turning 360 Degrees Unsteady, grabs/staggers Sitting Down Sitting Down Safe, steady Gait and Step Initiation of Gait No hesitancy Right Foot Step Length Does pass stance foot Right Foot Step Height Completely clears floor Left Foot Step Length Does pass stance foot Left Foot Step Height Completely clears floor Step Description Step Symmetry Step length not equal Gait Description Path Description Mild/moderate deviation Trunk Description Marked sway or uses aide Walking Stance Heels together Scoring and Interpretation Tinetti Composite Score (points) 18 Tinetti Impairment Rating from Composite 20 to <40% Impaired (Score 17- Score 22) PT-OP-E Functional Tests Start: 01/31/21 17:56 Freq: Status: Active Protocol: Document 03/08/21 14:30 SP (Rec: 03/08/21 16:44 SP [id number]) Functional Tests Tinetti Balance and Gait Assessment Balance Score 8 Gait Score 4 Composite Score 12 Balance Score Impairment Rating 40 to <60% Impaired (Score 7-9 ) Gait Score Impairment Rating 40 to <60% Impaired (Score 5-7 ) Composite Score Impairment Rating 80 to <100% Impaired (Score 1- 5) Other 5TSTS Name of Test 5 STS for time Score 19 sec PT-OP-G Mobility & Gait Start: 01/31/21 17:56 Freq: Status: Active Protocol: Document 02/04/21 08:18 LRN (Rec: 02/04/21 09:07 LRN [id number]) OP Gait Assessment Gait Gait Assistance Required: Independent Distance (Feet) 100 Able to Maintain Weight Bearing Status Yes During Gait Assistive Devices Assistive Device Front Wheeled Walker Gait Deviations General Gait Pattern Decreased Stride Length,Flexed Trunk,Lateral Trunk Lean, Narrow Based Gait,Step-to Gait Factors Limiting Gait Function Factors Limiting Gait Function Decreased Activity Tolerance, Decreased Strength,Poor Balance PT-OP-J Posture/Palpation/Skin Start: 01/31/21 17:56 Freq: Status: Active Protocol: Document 02/04/21 08:18 LRN (Rec: 02/04/21 09:07 LRN [id number]) Posture Evaluation Position Standing Head/C-Spine Posture Forward Head T-Spine Posture Increased Kyphosis L-Spine Posture Flattened Shoulder Posture (L) Elevated Pelvis Posture Anteriorly Tilted,Posterior Tilted Weight Distribution Weight Shifted Right Knee Posture (L) Genu Valgus,(R) Genu Valgus Comments Posture Comments Foot deformity FB at hips ~35 deg's, L hip retracted. PT-OP-M Strength Start: 01/31/21 17:56 Freq: Status: Active Protocol: Document 02/04/21 08:18 LRN (Rec: 02/04/21 09:07 LRN [id number]) Hip Strength Hip Manual Muscle Testing Right Flexion (L2) 5 Normal Left Flexion (L2) 4 Good Knee Strength Knee Manual Muscle Testing Right Comments Generally 5/5 Left Comments Generally 5/5 Ankle/Foot Strength Ankle and Foot Manual Muscle Testing Right Comments Generally 5/5 Left Inversion 3 Fair Comments L foot deformity limiting IV mobility. PT-OP-Q Treatments Start: 01/31/21 17:56 Freq: Status: Active Protocol: Document 03/22/21 14:21 LRN (Rec: 03/22/21 15:06 LRN [id number]) Therapeutic Exercises Sitting Exercises BKFO Sitting Exercise Name BKFO Equipment Used Lev 2TB Reps/Minutes 10x 3 toe/ heel side coordination movement Sitting Exercise Name Heel to opposite anterior foot <>ankle Side bilateral Reps/Minutes 3' coordination foot taps opp LE Sitting Exercise Name tap opp dorsal foot, ruano, knee Side bilateral Resistance AROM Equipment Used seated in 18 chair Reps/Minutes 4 min Comments looking for awareness then perform not looking LAQ Sitting Exercise Name w/ PF of ankle- reviewed HEP Side bilateral Equipment Used Lev 2 TB Reps/Minutes 10 x 3 Comments cued slow pacing Gait Training Gait Activity Gait Quad Cane Description Working farily light to somewhat hard Device Used SBQC in RUE Level of Assistance CGA Surface firm Distance/Duration 1' x 3 with sit/stand breaks in between laps Treatment Focus quad facilitation during swing through, heel toe R>L LE, LLE toe clearance Comments Not use; metronome for reyna set at 75 bpm. Neuro Re-Education Treatment Balance Activities Standing EO, EC Details Standing balance with head turns; up/down, S/S, diagonals Surface Level Equipment GB Reps/Duration 8 Comments Pt needs min assist for recovery with head turns and nods but is able to perform ~3 reps each direction before needing assist. Coordination Activities foot taps Details foot taps Equipment 3 step Reps/Duration 1 min x 2 Comments SBQC RUE and TUNNEL INSPECTOR LUE; faded visual feedback and then faded TUNNEL INSPECTOR; lacking both, pt able to perform 6 reps before fatigue and needing assist for balance PT-OP-T Assessment and Plan Start: 01/31/21 17:56 Freq: Status: Active Protocol: Document 03/22/21 14:21 LRN (Rec: 03/22/21 15:06 LRN [id number]) Physical Therapy Assessment Goals Four Impairment Decreased endurance (30 sec sit to stand - 9 reps; 5TSTS = 15.7 secs) Short Term Goal (STG) Improve 5TSTS TO 12.6 secs ( Norm for 80-89 yo is 14.8 sec' s) 02/21/21: progressin reps in 16 sec. 03/08/21: 5 reps 19 sec ( moderate retro lean x1 self recovery quick sit into chair no UE support). (03/11/21: 17 secs with good control w/o use of hands) STG Duration 03/08/21 (03/11/21: More time but better control when sitting) Fdc Goal (LTG) Improve 30 sit to stand to 10- 15 reps (norm for ages 75-79 is 10-15 reps) 02/21/21: progressin.5 reps in 30 sec. 03/01/21: progressing 10 reps in 30 sec today. 03/08/21: 12 reps in 30 sec no UE support- 1 retro lean quick descent self recovery. LTG Duration 05/05/21 (03/08/21: MET GOAL) Three Impairment Decreased Balance per ARRIETA score of 18 (60<80% impaired) Short Term Goal (STG) Improve standing reach (5 or more safely), and ability to stand and look behind without loss of balance. 03/08/21: porgressing: able to reach 5 outside PAULO without LOB. STG Duration 03/22/21 (03/08/21: GOAL MET) Assembler [employer] Goal (LTG) ARRIETA balance score of 34-44 ( 20<40% impaired) 03/08/21: 23/56- still high risk for falls. LTG Duration 05/05/21 (03/08/21: Progressing) Two Impairment Decreased gait with need of FWW for safety (Tinetti 13 = high fall risk) Short Term Goal (STG) Overall Tinetti score 23-27 (1 <20% impaired) or score 19-24 (medium fall risk, <14 high fall) risk). 02/21/21: progressing , high risk for falls. 03/08/21: 09/17, high risk for falls. 03/11/21: Tinetti score is 18 (20<40% impaired) STG Duration 03/22/21 (03/11/21: ) Fdc Goal (LTG) Pt will be able to walk without a cane safely 100' or more. 03/08/21: progressing: gait 152 ft required stand rest for recovery 10-15 sec, provided SBA w/ gait belt for safety. LTG Duration 05/05/21 (03/08/21: Progressing) One Impairment Lacks appropriate HEP. Short Term Goal (STG) Improve ABC score 41-60 (40<60 % impaired). Eval score is 10 .62. 02/26/21: 31% 03/08/21: 71.875 % STG Duration 03/22/21 Assembler [employer] Goal (LTG) Pt will be independent with a self care HEP to promote improving LE strength and balance. 03/05/21 HEP: ankle PF&EV TB, LAQ TB , posture scap squeeze w/ shld ER TB, heel toe walking, self STMs to calf/ quad/HS, eccentric HS curl TB, coordination foot ruano/ ankle IV/EV side taps/. LTG Duration 05/05/21 (03/05/21: Progressed) Assessment Summary Assessment Corner balance ex is challanging for diagonal R upper, L lower. She performs sitting LAQ without difficulty . Coordination ex's, pt is able to move ankle to knee with opposite heel with little deviation when hover sliding up leg. She seems to have more difficulty with accurately moving from ankle to heel. S/P therapy she appeared to walk with better coordination and no catching of toes using FWW. Physical Therapy Plan Frequency and Duration Frequency of Treatment 2x/Week Plan of Care Start Date 02/04/21 Plan of Care End Date 05/05/21 Next Visit Focus/Plan Next Note Type Treatment Note Next Visit Plan Continue standing strengthening, balance. Review gait using QC. Focus also on improving endurance and sit<>stand tolerance/ strength. POC: Gait training using SBQC, balance training in mirror, postural training, LLE (ankles , hips & ecc knee) strengthening, proprioceptive/ coordination training foot taps ruano>midshin>ankle, IV/EV movements, and progression in HEP.
--- NOTE | 2021-03-26 15:03 | PT.OTN ---
Current Diagnoses Muscle weakness (generalized) (03/26/21) Difficulty in walking, not elsewhere classified (03/26/21) Abnormal posture (03/26/21) Other symptoms and signs involving the nervous system (03/26/21) Physical Therapy Treatment Note PT-OP-A Visit Information Start: 01/31/21 17:56 Freq: Status: Active Protocol: Document 03/26/21 14:18 LRN (Rec: 03/26/21 15:02 LRN [id number]) Out-Patient Physical Therapy Visit Information Visit Information Visit Type Treatment Note Visit Start Time 14:18 Visit Stop Time 14:56 Total Visit Minutes 38 Visit Number 14 Evaluation Information Evaluation Date 02/04/21 Precautions Precautions 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 PT-OP-B Current Condition Start: 01/31/21 17:56 Freq: Status: Active Protocol: Document 02/04/21 08:18 LRN (Rec: 02/04/21 09:07 LRN [id number]) Current Condition History of Current Condition Onset Date November 2019 Current Complaints Having to use walker to walk. 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 In hospital 3-4 days, transferred to [facility] in [place] (prison) and found PT to not be helpful, then home health care after 14 days of quarrentine after catching COVID. Had home health PT for 3 months. Now seeking outpatient PT independently. States she needs help walking without a walker. Have fallen a few times immediately after returning home, due to weak L leg. Doesn't have feeling in feet and has sharp pains in feet; therefore on Gabapentin. Uses topical CBD cream that helps a little. During the day and while walking around, no pain. Pain in feet is mainly at night when trying to go to sleep, or sitting watching TV. Prior Treatments and Tests Few years ago had PT for neuropathy. Has treadmill at home that she uses sometimes. Treatment Goals Patient/Caregiver Goals Pt goal is to be able to walk without a walker using a cane, improve endurance and balance and pt agreeable to being placed on a HEP at discharge. 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 Had to sit on bench to rest. Baseline Function- Other Up/down steps using 2 railings . Current Functional Impairments (Reported) Functional Limitations- ADL's Ambs around home occasioinally without walker (kitchen to living room, living room to laudry room and bathrrom). Walks on deck with FWW. Functional Limitations- Mobility/Gait Ambulates with FWW independently. 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 Can go up/down steps using 2 railings. Personal Factors Other Personal Factors That May Effect Neuropathy of the feet. Therapy/Recovery PT-OP-C Subjective Start: 01/31/21 17:56 Freq: Status: Active Protocol: Document 03/26/21 14:18 LRN (Rec: 03/26/21 15:02 LRN [id number]) OP-PT Subjective Patient Comments Patient Comments Doing band ex's. Had bad episode of neuropathy of hands and feet last night from bed to this morning; therefore has not had a good nights rest. PT-OP-D Balance Start: 01/31/21 17:56 Freq: Status: Active Protocol: Document 03/11/21 14:30 LRN (Rec: 03/11/21 15:37 LRN [id number]) Tinetti Balance Assessment Sitting Balance Sitting Balance Steady, safe Arising from Chair Ability to Arise Able, w/o using arms Standing Balance Immediate Standing Balance Steady w/o support Standing Balance Steady, wide stance Nudged Response Steady Standing with Eyes Closed Unsteady Turning Step Pattern Turning 360 Degrees Continuous steps Stability Turning 360 Degrees Unsteady, grabs/staggers Sitting Down Sitting Down Safe, steady Gait and Step Initiation of Gait No hesitancy Right Foot Step Length Does pass stance foot Right Foot Step Height Completely clears floor Left Foot Step Length Does pass stance foot Left Foot Step Height Completely clears floor Step Description Step Symmetry Step length not equal Gait Description Path Description Mild/moderate deviation Trunk Description Marked sway or uses aide Walking Stance Heels together Scoring and Interpretation Tinetti Composite Score (points) 18 Tinetti Impairment Rating from Composite 20 to <40% Impaired (Score 17- Score 22) PT-OP-E Functional Tests Start: 01/31/21 17:56 Freq: Status: Active Protocol: Document 03/08/21 14:30 SP (Rec: 03/08/21 16:44 SP [id number]) Functional Tests Tinetti Balance and Gait Assessment Balance Score 8 Gait Score 4 Composite Score 12 Balance Score Impairment Rating 40 to <60% Impaired (Score 7-9 ) Gait Score Impairment Rating 40 to <60% Impaired (Score 5-7 ) Composite Score Impairment Rating 80 to <100% Impaired (Score 1- 5) Other 5TSTS Name of Test 5 STS for time Score 19 sec PT-OP-G Mobility & Gait Start: 01/31/21 17:56 Freq: Status: Active Protocol: Document 02/04/21 08:18 LRN (Rec: 02/04/21 09:07 LRN [id number]) OP Gait Assessment Gait Gait Assistance Required: Independent Distance (Feet) 100 Able to Maintain Weight Bearing Status Yes During Gait Assistive Devices Assistive Device Front Wheeled Walker Gait Deviations General Gait Pattern Decreased Stride Length,Flexed Trunk,Lateral Trunk Lean, Narrow Based Gait,Step-to Gait Factors Limiting Gait Function Factors Limiting Gait Function Decreased Activity Tolerance, Decreased Strength,Poor Balance PT-OP-J Posture/Palpation/Skin Start: 01/31/21 17:56 Freq: Status: Active Protocol: Document 02/04/21 08:18 LRN (Rec: 02/04/21 09:07 LRN [id number]) Posture Evaluation Position Standing Head/C-Spine Posture Forward Head T-Spine Posture Increased Kyphosis L-Spine Posture Flattened Shoulder Posture (L) Elevated Pelvis Posture Anteriorly Tilted,Posterior Tilted Weight Distribution Weight Shifted Right Knee Posture (L) Genu Valgus,(R) Genu Valgus Comments Posture Comments Foot deformity FB at hips ~35 deg's, L hip retracted. PT-OP-M Strength Start: 01/31/21 17:56 Freq: Status: Active Protocol: Document 02/04/21 08:18 LRN (Rec: 02/04/21 09:07 LRN [id number]) Hip Strength Hip Manual Muscle Testing Right Flexion (L2) 5 Normal Left Flexion (L2) 4 Good Knee Strength Knee Manual Muscle Testing Right Comments Generally 5/5 Left Comments Generally 5/5 Ankle/Foot Strength Ankle and Foot Manual Muscle Testing Right Comments Generally 5/5 Left Inversion 3 Fair Comments L foot deformity limiting IV mobility. PT-OP-Q Treatments Start: 01/31/21 17:56 Freq: Status: Active Protocol: Document 03/26/21 14:18 LRN (Rec: 03/26/21 15:02 LRN [id number]) Therapeutic Exercises Sitting Exercises BKFO Sitting Exercise Name BKFO Equipment Used Lev 2TB Reps/Minutes 10x 3 foot tapping/coordination Sitting Exercise Name foot tapping/coordination Reps/Minutes 4 min Comments mirrored PT tapping, alternating, crossing over toe/ heel side coordination movement Sitting Exercise Name Heel to opposite anterior foot <>ankle Side bilateral Reps/Minutes 3' coordination foot taps opp LE Sitting Exercise Name tap w/heel, opp dorsal foot, ruano, knee Side bilateral Resistance AROM Equipment Used seated in 18 chair Reps/Minutes 4 min Comments looking for awareness then perform not looking LAQ Sitting Exercise Name w/ PF of ankle- reviewed HEP Side bilateral Equipment Used 4# Reps/Minutes 10 x 3 Comments cued slow pacing Standing Exercises sit <> stands Standing Exercise Name no UE support Equipment Used 18 chair Reps/Minutes 10x Comments good forward weight shift and acceptance, cued control of descent Gait Training Gait Activity Gait Quad Cane Description Working farily light to somewhat hard Device Used SBQC in RUE Level of Assistance CGA Surface firm Distance/Duration 6' Treatment Focus quad facilitation during swing through, heel toe R>L LE, LLE toe clearance Comments Not use; metronome for reyna set at 75 bpm. PT-OP-T Assessment and Plan Start: 01/31/21 17:56 Freq: Status: Active Protocol: Document 03/26/21 14:18 LRN (Rec: 03/26/21 15:02 LRN [id number]) Physical Therapy Assessment Goals Four Impairment Decreased endurance (30 sec sit to stand - 9 reps; 5TSTS = 15.7 secs) Short Term Goal (STG) Improve 5TSTS TO 12.6 secs ( Norm for 80-89 yo is 14.8 sec' s) 02/21/21: progressin reps in 16 sec. 03/08/21: 5 reps 19 sec ( moderate retro lean x1 self recovery quick sit into chair no UE support). (03/11/21: 17 secs with good control w/o use of hands) STG Duration 03/08/21 (03/11/21: More time but better control when sitting) Prison Goal (LTG) Improve 30 sit to stand to 10- 15 reps (norm for ages 75-79 is 10-15 reps) 02/21/21: progressin.5 reps in 30 sec. 03/01/21: progressing 10 reps in 30 sec today. 03/08/21: 12 reps in 30 sec no UE support- 1 retro lean quick descent self recovery. LTG Duration 05/05/21 (03/08/21: MET GOAL) Three Impairment Decreased Balance per ARRIETA score of 18 (60<80% impaired) Short Term Goal (STG) Improve standing reach (5 or more safely), and ability to stand and look behind without loss of balance. 03/08/21: porgressing: able to reach 5 outside PAULO without LOB. STG Duration 03/22/21 (03/08/21: GOAL MET) Comic Book Artist Goal (LTG) ARRIETA balance score of 34-44 ( 20<40% impaired) 03/08/21: 23/56- still high risk for falls. LTG Duration 05/05/21 (03/08/21: Progressing) One Impairment Lacks appropriate HEP. Short Term Goal (STG) Improve ABC score 41-60 (40<60 % impaired). Eval score is 10 .62. 02/26/21: 31% 03/08/21: 71.875 % STG Duration 03/22/21 Comic Book Artist Goal (LTG) Pt will be independent with a self care HEP to promote improving LE strength and balance. 03/05/21 HEP: ankle PF&EV TB, LAQ TB , posture scap squeeze w/ shld ER TB, heel toe walking, self STMs to calf/ quad/HS, eccentric HS curl TB, coordination foot ruano/ ankle IV/EV side taps/. LTG Duration 05/05/21 (03/05/21: Progressed) Progress Towards Goals Progress Comments Improved mechanics of stand to sit. Assessment Summary Assessment Pt had uncontrolled descent with stand to sit to start, by end of therapy was able to control sit ~90% of time. Pt fatigued quickly today due to poor sleep last night; therefore pt's tolerance to therapy was fair to poor. Gait with QC needs further training to keep pt from lifting cane and L leg at same time during gait. Physical Therapy Plan Frequency and Duration Frequency of Treatment 2x/Week Plan of Care Start Date 02/04/21 Plan of Care End Date 05/05/21 Next Visit Focus/Plan Next Note Type Treatment Note Next Visit Plan Continue standing strengthening, balance and added emphasis on proper gait with QC. Focus also on improving endurance and sit<> stand (sit to stand with increased speed without plopping) tolerance/strength and gait with QC. POC: Gait training using SBQC, balance training in mirror, postural training, LLE (ankles , hips & ecc knee) strengthening, proprioceptive/ coordination training foot taps ruano>midshin>ankle, IV/EV movements, and progression in HEP.
--- NOTE | 2021-03-29 15:15 | PT.OTN ---
Current Diagnoses Muscle weakness (generalized) (03/29/21) Difficulty in walking, not elsewhere classified (03/29/21) Abnormal posture (03/29/21) Other symptoms and signs involving the nervous system (03/29/21) Physical Therapy Treatment Note PT-OP-A Visit Information Start: 01/31/21 17:56 Freq: Status: Active Protocol: Document 03/29/21 14:32 SP (Rec: 03/29/21 16:44 SP [id number]) Out-Patient Physical Therapy Visit Information Visit Information Visit Type Treatment Note Visit Start Time 14:32 Visit Stop Time 15:15 Total Visit Minutes 43 Visit Number 15 Number of MATCH MARKER Visits 1 Evaluation Information Evaluation Date 02/04/21 Precautions Precautions 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 PT-OP-B Current Condition Start: 01/31/21 17:56 Freq: Status: Active Protocol: Document 02/04/21 08:18 LRN (Rec: 02/04/21 09:07 LRN [id number]) Current Condition History of Current Condition Onset Date November 2019 Current Complaints Having to use walker to walk. 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 In hospital 3-4 days, transferred to [facility] in [place] ([facility]) and found PT to not be helpful, then home health care after 14 days of [place] after catching COVID. Had home health PT for 3 months. Now seeking outpatient PT independently. States she needs help walking without a walker. Have fallen a few times immediately after returning home, due to weak L leg. Doesn't have feeling in feet and has sharp pains in feet; therefore on Gabapentin. Uses topical CBD cream that helps a little. During the day and while walking around, no pain. Pain in feet is mainly at night when trying to go to sleep, or sitting watching TV. Prior Treatments and Tests Few years ago had PT for neuropathy. Has treadmill at home that she uses sometimes. Treatment Goals Patient/Caregiver Goals Pt goal is to be able to walk without a walker using a cane, improve endurance and balance and pt agreeable to being placed on a HEP at discharge. 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 Had to sit on bench to rest. Baseline Function- Other Up/down steps using 2 railings . Current Functional Impairments (Reported) Functional Limitations- ADL's Ambs around home occasioinally without walker (kitchen to living room, living room to laudry room and bathrrom). Walks on deck with FWW. Functional Limitations- Mobility/Gait Ambulates with FWW independently. 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 Can go up/down steps using 2 railings. Personal Factors Other Personal Factors That May Effect Neuropathy of the feet. Therapy/Recovery PT-OP-C Subjective Start: 01/31/21 17:56 Freq: Status: Active Protocol: Document 03/29/21 14:32 SP (Rec: 03/29/21 16:44 SP [id number]) OP-PT Subjective Patient Comments Patient Comments Pt stated is compliant with TB exercises, found it really difficult doing the new gait patterning with her QC at home that was new last tx,wants to review. PT-OP-D Balance Start: 01/31/21 17:56 Freq: Status: Active Protocol: Document 03/11/21 14:30 LRN (Rec: 03/11/21 15:37 LRN [id number]) Tinetti Balance Assessment Sitting Balance Sitting Balance Steady, safe Arising from Chair Ability to Arise Able, w/o using arms Standing Balance Immediate Standing Balance Steady w/o support Standing Balance Steady, wide stance Nudged Response Steady Standing with Eyes Closed Unsteady Turning Step Pattern Turning 360 Degrees Continuous steps Stability Turning 360 Degrees Unsteady, grabs/staggers Sitting Down Sitting Down Safe, steady Gait and Step Initiation of Gait No hesitancy Right Foot Step Length Does pass stance foot Right Foot Step Height Completely clears floor Left Foot Step Length Does pass stance foot Left Foot Step Height Completely clears floor Step Description Step Symmetry Step length not equal Gait Description Path Description Mild/moderate deviation Trunk Description Marked sway or uses aide Walking Stance Heels together Scoring and Interpretation Tinetti Composite Score (points) 18 Tinetti Impairment Rating from Composite 20 to <40% Impaired (Score 17- Score 22) PT-OP-E Functional Tests Start: 05/13/21 17:56 Freq: Status: Active Protocol: Document 03/08/21 14:30 SP (Rec: 03/08/21 16:44 SP [id number]) Functional Tests Tinetti Balance and Gait Assessment Balance Score 8 Gait Score 4 Composite Score 12 Balance Score Impairment Rating 40 to <60% Impaired (Score 7-9 ) Gait Score Impairment Rating 40 to <60% Impaired (Score 5-7 ) Composite Score Impairment Rating 80 to <100% Impaired (Score 1- 5) Other 5TSTS Name of Test 5 STS for time Score 19 sec PT-OP-G Mobility & Gait Start: 01/31/21 17:56 Freq: Status: Active Protocol: Document 02/04/21 08:18 LRN (Rec: 02/04/21 09:07 LRN [id number]) OP Gait Assessment Gait Gait Assistance Required: Independent Distance (Feet) 100 Able to Maintain Weight Bearing Status Yes During Gait Assistive Devices Assistive Device Front Wheeled Walker Gait Deviations General Gait Pattern Decreased Stride Length,Flexed Trunk,Lateral Trunk Lean, Narrow Based Gait,Step-to Gait Factors Limiting Gait Function Factors Limiting Gait Function Decreased Activity Tolerance, Decreased Strength,Poor Balance PT-OP-J Posture/Palpation/Skin Start: 01/31/21 17:56 Freq: Status: Active Protocol: Document 02/04/21 08:18 LRN (Rec: 02/04/21 09:07 LRN [id number]) Posture Evaluation Position Standing Head/C-Spine Posture Forward Head T-Spine Posture Increased Kyphosis L-Spine Posture Flattened Shoulder Posture (L) Elevated Pelvis Posture Anteriorly Tilted,Posterior Tilted Weight Distribution Weight Shifted Right Knee Posture (L) Genu Valgus,(R) Genu Valgus Comments Posture Comments Foot deformity FB at hips ~35 deg's, L hip retracted. PT-OP-M Strength Start: 01/31/21 17:56 Freq: Status: Active Protocol: Document 02/04/21 08:18 LRN (Rec: 02/04/21 09:07 LRN [id number]) Hip Strength Hip Manual Muscle Testing Right Flexion (L2) 5 Normal Left Flexion (L2) 4 Good Knee Strength Knee Manual Muscle Testing Right Comments Generally 5/5 Left Comments Generally 5/5 Ankle/Foot Strength Ankle and Foot Manual Muscle Testing Right Comments Generally 5/5 Left Inversion 3 Fair Comments L foot deformity limiting IV mobility. PT-OP-Q Treatments Start: 01/31/21 17:56 Freq: Status: Active Protocol: Document 03/29/21 14:32 SP (Rec: 03/29/21 16:44 SP [id number]) Therapeutic Exercises Sitting Exercises foot tapping/coordination Sitting Exercise Name foot tapping/coordination Reps/Minutes 4 min Comments mirrored PT tapping, alternating, crossing over toe/ heel side coordination movement Sitting Exercise Name Heel to opposite anterior foot <>ankle Side bilateral Reps/Minutes 3' coordination foot taps opp LE Sitting Exercise Name tap w/heel, opp dorsal foot, ruano, knee Side bilateral Resistance AROM Equipment Used seated in 18 chair Reps/Minutes 4 min Comments looking for awareness then perform not looking LAQ Sitting Exercise Name w/ PF of ankle- reviewed HEP Side bilateral Equipment Used 4# Reps/Minutes 10 x 3 Comments cued slow pacing Standing Exercises sit <> stands Standing Exercise Name no UE support Equipment Used 18 chair Reps/Minutes 10x Comments good forward weight shift and acceptance, cued control of descent Gait Training Gait Activity stair mgt Description quad, hip abd facilitation and stability ascend/descend Device Used 2HR> 1 HR Level of Assistance CGA Distance/Duration 4 stairs: B HR x1 set, 3 sets R HR Treatment Focus improve quad/ hip abd fac and control Comments receiprocal gait B HR with ease, receiprocal gait with cuing for safety quad facilitation to support ascending stability, slow eccentric step down Gait Quad Cane Description Working farily light to somewhat hard Device Used SBQC in RUE instruction 3pt gait for increased stabiltiy Level of Assistance CGA Surface firm Distance/Duration 130 ft, 50 ft Treatment Focus quad facilitation during swing through, heel toe R>L LE, LLE toe clearance Comments Did not use this tx: Use metronome for reyna set at 75 bpm next tx. PT-OP-T Assessment and Plan Start: 01/31/21 17:56 Freq: Status: Active Protocol: Document 03/29/21 14:32 SP (Rec: 03/29/21 16:44 SP [id number]) Physical Therapy Assessment Goals Four Impairment Decreased endurance (30 sec sit to stand - 9 reps; 5TSTS = 15.7 secs) Short Term Goal (STG) Improve 5TSTS TO 12.6 secs ( Norm for 80-89 yo is 14.8 sec' s) 02/21/21: progressin reps in 16 sec. 03/08/21: 5 reps 19 sec ( moderate retro lean x1 self recovery quick sit into chair no UE support). (03/11/21: 17 secs with good control w/o use of hands) STG Duration 03/08/21 (03/11/21: More time but better control when sitting) Long-Term Goal (LTG) Improve 30 sit to stand to 10- 15 reps (norm for ages 75-79 is 10-15 reps) 02/21/21: progressin.5 reps in 30 sec. 03/01/21: progressing 10 reps in 30 sec today. 03/08/21: 12 reps in 30 sec no UE support- 1 retro lean quick descent self recovery. LTG Duration 05/05/21 (03/08/21: MET GOAL) Three Impairment Decreased Balance per ARRIETA score of 18 (60<80% impaired) Short Term Goal (STG) Improve standing reach (5 or more safely), and ability to stand and look behind without loss of balance. 03/08/21: porgressing: able to reach 5 outside PAULO without LOB. STG Duration 03/22/21 (03/08/21: GOAL MET) Motion Picture Projectionist Apprentice Goal (LTG) ARRIETA balance score of 34-44 ( 20<40% impaired) 03/08/21: 23/56- still high risk for falls. LTG Duration 05/05/21 (03/08/21: Progressing) Two Impairment Decreased gait with need of FWW for safety (Tinetti 13 = high fall risk) Short Term Goal (STG) Overall Tinetti score 23-27 (1 <20% impaired) or score 19-24 (medium fall risk, <14 high fall) risk). 02/21/21: progressing 16, high risk for falls. 03/08/21: 09/17, high risk for falls. 03/11/21: Tinetti score is 18 (20<40% impaired) STG Duration 03/22/21 (03/11/21: ) Long-Term Goal (LTG) Pt will be able to walk without a cane safely 100' or more. 03/08/21: progressing: gait 152 ft required stand rest for recovery 10-15 sec, provided SBA w/ gait belt for safety. LTG Duration 05/05/21 (03/08/21: Progressing) One Impairment Lacks appropriate HEP. Short Term Goal (STG) Improve ABC score 41-60 (40<60 % impaired). Eval score is 10 .62. 02/26/21: 31% 03/08/21: 71.875 % STG Duration 03/22/21 Motion Picture Projectionist Apprentice Goal (LTG) Pt will be independent with a self care HEP to promote improving LE strength and balance. 03/05/21 HEP: ankle PF&EV TB, LAQ TB , posture scap squeeze w/ shld ER TB, heel toe walking, self STMs to calf/ quad/HS, eccentric HS curl TB, coordination foot ruano/ ankle IV/EV side taps/. LTG Duration 05/05/21 (03/05/21: Progressed) Assessment Summary Assessment Pt improved with 3pt gait patterning as distance progressed. Pt able to complete sit<> stands with arms crosssed chest and ease of descent 90% of time with COG over PAULO. Physical Therapy Plan Frequency and Duration Frequency of Treatment 2x/Week Plan of Care Start Date 02/04/21 Plan of Care End Date 05/05/21 Therapeutic Interventions Therapeutic Interventions Balance Training,Coordination Training,Gait Training,Home Exercise Program,Manual Therapy,Neuromuscular Re- education,Patient/Caregiver Education,Self-Care/Home Management,Therapeutic Activities,Therapeutic Exercises Modalities Cold Pack/Ice Massage,Hot Packs Next Visit Focus/Plan Next Note Type Treatment Note Next Visit Plan Continue standing strengthening, balance and added emphasis on proper 3pt gait with QC. Focus also on improving endurance and sit<> stand (sit to stand with increased speed without plopping) tolerance/strength and gait with QC. POC: Gait training using SBQC, balance training in mirror, postural training, LLE (ankles , hips & ecc knee) strengthening, proprioceptive/ coordination training foot taps ruano>midshin>ankle, IV/EV movements, and progression in HEP.
--- NOTE | 2021-04-02 15:24 | PT.OTN ---
Current Diagnoses Muscle weakness (generalized) (04/02/21) Difficulty in walking, not elsewhere classified (04/02/21) Abnormal posture (04/02/21) Other symptoms and signs involving the nervous system (04/02/21) Physical Therapy Treatment Note PT-OP-A Visit Information Start: 01/31/21 17:56 Freq: Status: Active Protocol: Document 04/02/21 14:36 SP (Rec: 04/02/21 15:45 SP [id number]) Out-Patient Physical Therapy Visit Information Visit Information Visit Type Treatment Note Visit Start Time 14:36 Visit Stop Time 15:24 Total Visit Minutes 48 Visit Number 16 Number of [employer] Visits 2 Evaluation Information Evaluation Date 02/04/21 Precautions Precautions 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 PT-OP-B Current Condition Start: 01/31/21 17:56 Freq: Status: Active Protocol: Document 02/04/21 08:18 LRN (Rec: 02/04/21 09:07 LRN [id number]) Current Condition History of Current Condition Onset Date November 2019 Current Complaints Having to use walker to walk. 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 In hospital 3-4 days, transferred to [facility] in [place] (longterm) and found PT to not be helpful, then home health care after 14 days of quarrentine after catching COVID. Had home health PT for 3 months. Now seeking outpatient PT independently. States she needs help walking without a walker. Have fallen a few times immediately after returning home, due to weak L leg. Doesn't have feeling in feet and has sharp pains in feet; therefore on Gabapentin. Uses topical CBD cream that helps a little. During the day and while walking around, no pain. Pain in feet is mainly at night when trying to go to sleep, or sitting watching TV. Prior Treatments and Tests Few years ago had PT for neuropathy. Has treadmill at home that she uses sometimes. Treatment Goals Patient/Caregiver Goals Pt goal is to be able to walk without a walker using a cane, improve endurance and balance and pt agreeable to being placed on a HEP at discharge. 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 Had to sit on bench to rest. Baseline Function- Other Up/down steps using 2 railings . Current Functional Impairments (Reported) Functional Limitations- ADL's Ambs around home occasioinally without walker (kitchen to living room, living room to laudry room and bathrrom). Walks on deck with FWW. Functional Limitations- Mobility/Gait Ambulates with FWW independently. 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 Can go up/down steps using 2 railings. Personal Factors Other Personal Factors That May Effect Neuropathy of the feet. Therapy/Recovery PT-OP-C Subjective Start: 01/31/21 17:56 Freq: Status: Active Protocol: Document 04/02/21 14:36 SP (Rec: 04/02/21 15:45 SP [id number]) OP-PT Subjective Patient Comments Patient Comments Pt stated doing walking w/ QC at home on deck at home and feels getting better at 3pt gait correctly, feels more balanced performing now. PT-OP-D Balance Start: 01/31/21 17:56 Freq: Status: Active Protocol: Document 03/11/21 14:30 LRN (Rec: 03/11/21 15:37 LRN [id number]) Tinetti Balance Assessment Sitting Balance Sitting Balance Steady, safe Arising from Chair Ability to Arise Able, w/o using arms Standing Balance Immediate Standing Balance Steady w/o support Standing Balance Steady, wide stance Nudged Response Steady Standing with Eyes Closed Unsteady Turning Step Pattern Turning 360 Degrees Continuous steps Stability Turning 360 Degrees Unsteady, grabs/staggers Sitting Down Sitting Down Safe, steady Gait and Step Initiation of Gait No hesitancy Right Foot Step Length Does pass stance foot Right Foot Step Height Completely clears floor Left Foot Step Length Does pass stance foot Left Foot Step Height Completely clears floor Step Description Step Symmetry Step length not equal Gait Description Path Description Mild/moderate deviation Trunk Description Marked sway or uses aide Walking Stance Heels together Scoring and Interpretation Tinetti Composite Score (points) 18 Tinetti Impairment Rating from Composite 20 to <40% Impaired (Score 17- Score 22) PT-OP-E Functional Tests Start: 01/31/21 17:56 Freq: Status: Active Protocol: Document 04/02/21 14:36 SP (Rec: 04/02/21 15:45 SP [id number]) Functional Tests 30 Second Sit to Stand Test Score 12 Comments good Tinetti Balance and Gait Assessment Balance Score 12 Gait Score 8 Composite Score 20 Balance Score Impairment Rating 20 to <40% Impaired (Score 10- 12) Gait Score Impairment Rating 20 to <40% Impaired (Score 8-9 ) Composite Score Impairment Rating 1 to <20% Impaired (Score 23- 27) Other 5TSTS Name of Test 5 STS for time Score 15.15 sec Comment improved from 17 sec on PT-OP-G Mobility & Gait Start: 01/31/21 17:56 Freq: Status: Active Protocol: Document 02/04/21 08:18 LRN (Rec: 02/04/21 09:07 LRN [id number]) OP Gait Assessment Gait Gait Assistance Required: Independent Distance (Feet) 100 Able to Maintain Weight Bearing Status Yes During Gait Assistive Devices Assistive Device Front Wheeled Walker Gait Deviations General Gait Pattern Decreased Stride Length,Flexed Trunk,Lateral Trunk Lean, Narrow Based Gait,Step-to Gait Factors Limiting Gait Function Factors Limiting Gait Function Decreased Activity Tolerance, Decreased Strength,Poor Balance PT-OP-J Posture/Palpation/Skin Start: 01/31/21 17:56 Freq: Status: Active Protocol: Document 02/04/21 08:18 LRN (Rec: 02/04/21 09:07 LRN [id number]) Posture Evaluation Position Standing Head/C-Spine Posture Forward Head T-Spine Posture Increased Kyphosis L-Spine Posture Flattened Shoulder Posture (L) Elevated Pelvis Posture Anteriorly Tilted,Posterior Tilted Weight Distribution Weight Shifted Right Knee Posture (L) Genu Valgus,(R) Genu Valgus Comments Posture Comments Foot deformity FB at hips ~35 deg's, L hip retracted. PT-OP-M Strength Start: 01/31/21 17:56 Freq: Status: Active Protocol: Document 02/04/21 08:18 LRN (Rec: 02/04/21 09:07 LRN [id number]) Hip Strength Hip Manual Muscle Testing Right Flexion (L2) 5 Normal Left Flexion (L2) 4 Good Knee Strength Knee Manual Muscle Testing Right Comments Generally 5/5 Left Comments Generally 5/5 Ankle/Foot Strength Ankle and Foot Manual Muscle Testing Right Comments Generally 5/5 Left Inversion 3 Fair Comments L foot deformity limiting IV mobility. PT-OP-Q Treatments Start: 01/31/21 17:56 Freq: Status: Active Protocol: Document 04/02/21 14:36 SP (Rec: 04/02/21 15:45 SP [id number]) Therapeutic Exercises Standing Exercises lunge hip flexor stretch Side right Equipment Used rail support Reps/Minutes 30 x2 Comments cued tall posture and allow heel elevate for focus front hip stretch vscalf sit <> stands Standing Exercise Name arms across chest Equipment Used 18 chair Reps/Minutes 12 reps in 30 sec, 5 reps in sec Comments good forward weight shift and acceptance, cued control of descent Gait Training Gait Activity 6MWT Device Used QC Level of Assistance SBA Surface frim Distance/Duration 152 t Treatment Focus 3pt gait, equal step length and foot clearance, endurance Comments improvement able to complete testing today w/ 3 stop stand 3 sec rest breaks for recovery . Gait Quad Cane Description Working farily light to somewhat hard Device Used SBQC in RUE instruction 3pt gait for increased stabiltiy Level of Assistance CGA Surface firm Distance/Duration 100ft, 150 ft Treatment Focus quad facilitation during swing through, heel toe R>L LE, LLE toe clearance Comments Did not use this tx: Use metronome for reyna set at 75 bpm NEXT TX! Neuro Re-Education Treatment Balance Activities Turning Details turns during gait testing Surface firm Equipment QC Reps/Duration SBA Comments cued small marching steps w/ proper QC advancement- improvement PT-OP-T Assessment and Plan Start: 01/31/21 17:56 Freq: Status: Active Protocol: Document 04/02/21 14:36 SP (Rec: 04/02/21 15:45 SP [id number]) Physical Therapy Assessment Goals Four Impairment Decreased endurance (30 sec sit to stand - 9 reps; 5TSTS = 15.7 secs) Short Term Goal (STG) Improve 5TSTS TO 12.6 secs ( Norm for 80-89 yo is 14.8 sec' s) 02/21/21: progressin reps in 16 sec. 03/08/21: 5 reps 19 sec ( moderate retro lean x1 self recovery quick sit into chair no UE support). (03/11/21: 17 secs with good control w/o use of hands) 04/02/21: 15.15 sec STG Duration 03/08/21 (04/02/21: progressing ) Reservation Agent Goal (LTG) Improve 30 sit to stand to 10- 15 reps (norm for ages 75-79 is 10-15 reps) 02/21/21: progressin.5 reps in 30 sec. 03/01/21: progressing 10 reps in 30 sec today. 03/08/21: 12 reps in 30 sec no UE support- 1 retro lean quick descent self recovery. 04/02/21: 12 reps arms across chest, stable. LTG Duration 05/05/21 (03/08/21: MET GOAL) Three Impairment Decreased Balance per ARRIETA score of 18 (60<80% impaired) Short Term Goal (STG) Improve standing reach (5 or more safely), and ability to stand and look behind without loss of balance. 03/08/21: porgressing: able to reach 5 outside PAULO without LOB. 04/02/21: 7 outside PAULO forward STG Duration 03/22/21 (03/08/21: GOAL MET) Prison Goal (LTG) ARRIETA balance score of 34-44 ( 20<40% impaired) 03/08/21: 23/56- still high risk for falls. 04/02/21: LTG Duration 05/05/21 (03/08/21: Progressing) Two Impairment Decreased gait with need of FWW for safety (Tinetti 13 = high fall risk) Short Term Goal (STG) Overall Tinetti score 23-27 (1 <20% impaired) or score 19-24 (medium fall risk, <14 high fall) risk). 02/21/21: progressing , high risk for falls. 03/08/21: 09/17, high risk for falls. 03/11/21: Tinetti score is 18 (20<40% impaired) high risk for falls. 04/02/21: Moderate risk for falls (1-20% impaired). STG Duration 03/22/21 (04/02/21: Progressing ) Reservation Agent Goal (LTG) Pt will be able to walk without a cane safely 100' or more. 03/08/21: progressing: gait 152 ft using QC required stand rest for recovery 10-15 sec, provided SBA w/ gait belt for safety. 04/02/21: Completed 6MWT in 152ft requiring 3 x3 sec brief stop stand rests for recovery . LTG Duration 05/05/21 (04/02/21: Progressing) One Impairment Lacks appropriate HEP. Short Term Goal (STG) Improve ABC score 41-60 (40<60 % impaired). Eval score is 10 .62. 02/26/21: 31% 03/08/21: 71.875 % STG Duration 03/22/21 Prison Goal (LTG) Pt will be independent with a self care HEP to promote improving LE strength and balance. 03/05/21 HEP: ankle PF&EV TB, LAQ TB , posture scap squeeze w/ shld ER TB, heel toe walking, self STMs to calf/ quad/HS, eccentric HS curl TB, coordination foot ruano/ ankle IV/EV side taps/. LTG Duration 05/05/21 (03/05/21: Progressed) Progress Towards Goals Progress Towards Goals Progressing Toward Goals Progress Comments Pt improved in testing high decreased to moderate risk for falls on Tinetti, 40-60% impaired. Improved on 5xSTS from 17 sec to 15.15 sec. Assessment Summary Assessment Pt improving in ease and stability performing 3pt gait using QC, states practicing on her deck at home, does still use 4WW in home due to so many objects thinks might get in her way and fall. Suggested rearranging area to allow safety and increase functional independence w/ LRAD. Pt more stable during STS's today continues at 12 reps in 30 sec , performing at home. Pt reported decreased front hip tightness after gait and hip flexor stretch. Physical Therapy Plan Frequency and Duration Frequency of Treatment 2x/Week Plan of Care Start Date 02/04/21 Plan of Care End Date 05/05/21 Therapeutic Interventions Therapeutic Interventions Balance Training,Coordination Training,Gait Training,Home Exercise Program,Manual Therapy,Neuromuscular Re- education,Patient/Caregiver Education,Self-Care/Home Management,Therapeutic Activities,Therapeutic Exercises Modalities Cold Pack/Ice Massage,Hot Packs Next Visit Focus/Plan Next Note Type Treatment Note Next Visit Plan Next tx: metronome 75bpm, ARRIETA . PT POC: Continue standing strengthening, balance. Continue focus also on improving endurance and sit<> stand (sit to stand with increased speed without plopping), tolerance/strength and gait with QC. POC: Gait training using SBQC, balance training in mirror, postural training, LLE (ankles , hips & ecc knee) strengthening, proprioceptive/ coordination training foot taps ruano>midshin>ankle, IV/EV movements, and progression in HEP.
--- NOTE | 2021-04-05 14:30 | PT.OTN ---
Current Diagnoses Muscle weakness (generalized) (04/05/21) Difficulty in walking, not elsewhere classified (04/05/21) Abnormal posture (04/05/21) Other symptoms and signs involving the nervous system (04/05/21) Physical Therapy Treatment Note PT-OP-A Visit Information Start: 01/31/21 17:56 Freq: Status: Active Protocol: Document 04/05/21 13:47 SP (Rec: 04/05/21 14:45 SP [id number]) Out-Patient Physical Therapy Visit Information Visit Information Visit Type Treatment Note Visit Start Time 13:47 Visit Stop Time 14:30 Total Visit Minutes 43 Visit Number 17 Number of [employer] Visits 3 Evaluation Information Evaluation Date 02/04/21 Precautions Precautions 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 PT-OP-B Current Condition Start: 01/31/21 17:56 Freq: Status: Active Protocol: Document 02/04/21 08:18 LRN (Rec: 02/04/21 09:07 LRN [id number]) Current Condition History of Current Condition Onset Date November 2019 Current Complaints Having to use walker to walk. 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 In hospital 3-4 days, transferred to [facility] in [place] (fpc) and found PT to not be helpful, then home health care after 14 days of quarrentine after catching COVID. Had home health PT for 3 months. Now seeking outpatient PT independently. States she needs help walking without a walker. Have fallen a few times immediately after returning home, due to weak L leg. Doesn't have feeling in feet and has sharp pains in feet; therefore on Gabapentin. Uses topical CBD cream that helps a little. During the day and while walking around, no pain. Pain in feet is mainly at night when trying to go to sleep, or sitting watching TV. Prior Treatments and Tests Few years ago had PT for neuropathy. Has treadmill at home that she uses sometimes. Treatment Goals Patient/Caregiver Goals Pt goal is to be able to walk without a walker using a cane, improve endurance and balance and pt agreeable to being placed on a HEP at discharge. 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 Had to sit on bench to rest. Baseline Function- Other Up/down steps using 2 railings . Current Functional Impairments (Reported) Functional Limitations- ADL's Ambs around home occasioinally without walker (kitchen to living room, living room to laudry room and bathrrom). Walks on deck with FWW. Functional Limitations- Mobility/Gait Ambulates with FWW independently. 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 Can go up/down steps using 2 railings. Personal Factors Other Personal Factors That May Effect Neuropathy of the feet. Therapy/Recovery PT-OP-C Subjective Start: 01/31/21 17:56 Freq: Status: Active Protocol: Document 04/05/21 13:47 SP (Rec: 04/05/21 14:45 SP [id number]) OP-PT Subjective Patient Comments Patient Comments Pt stated is doing well, doing sit<>stands, walking using QC on deck laps. Trying to get more confident using QC. Pt states can walk about 30 ft without AD but better w/ AD. PT-OP-D Balance Start: 01/31/21 17:56 Freq: Status: Active Protocol: Document 04/05/21 13:47 SP (Rec: 04/05/21 14:48 SP [id number]) Balance Tests Arrieta Balance Test Arreita Balance Test Score 32 Arrieta Impairment Rating 40 to 59% Impaired (Score 23- 33) PT-OP-E Functional Tests Start: 01/31/21 17:56 Freq: Status: Active Protocol: Document 04/02/21 14:36 SP (Rec: 04/02/21 15:45 SP [id number]) Functional Tests 30 Second Sit to Stand Test Score 12 Comments good Tinetti Balance and Gait Assessment Balance Score 12 Gait Score 8 Composite Score 20 Balance Score Impairment Rating 20 to <40% Impaired (Score 10- 12) Gait Score Impairment Rating 20 to <40% Impaired (Score 8-9 ) Composite Score Impairment Rating 1 to <20% Impaired (Score 23- 27) Other 5TSTS Name of Test 5 STS for time Score 15.15 sec Comment improved from 17 sec on PT-OP-G Mobility & Gait Start: 01/31/21 17:56 Freq: Status: Active Protocol: Document 02/04/21 08:18 LRN (Rec: 02/04/21 09:07 LRN [id number]) OP Gait Assessment Gait Gait Assistance Required: Independent Distance (Feet) 100 Able to Maintain Weight Bearing Status Yes During Gait Assistive Devices Assistive Device Front Wheeled Walker Gait Deviations General Gait Pattern Decreased Stride Length,Flexed Trunk,Lateral Trunk Lean, Narrow Based Gait,Step-to Gait Factors Limiting Gait Function Factors Limiting Gait Function Decreased Activity Tolerance, Decreased Strength,Poor Balance PT-OP-J Posture/Palpation/Skin Start: 01/31/21 17:56 Freq: Status: Active Protocol: Document 02/04/21 08:18 LRN (Rec: 02/04/21 09:07 LRN [id number]) Posture Evaluation Position Standing Head/C-Spine Posture Forward Head T-Spine Posture Increased Kyphosis L-Spine Posture Flattened Shoulder Posture (L) Elevated Pelvis Posture Anteriorly Tilted,Posterior Tilted Weight Distribution Weight Shifted Right Knee Posture (L) Genu Valgus,(R) Genu Valgus Comments Posture Comments Foot deformity FB at hips ~35 deg's, L hip retracted. PT-OP-M Strength Start: 01/31/21 17:56 Freq: Status: Active Protocol: Document 02/04/21 08:18 LRN (Rec: 02/04/21 09:07 LRN [id number]) Hip Strength Hip Manual Muscle Testing Right Flexion (L2) 5 Normal Left Flexion (L2) 4 Good Knee Strength Knee Manual Muscle Testing Right Comments Generally 5/5 Left Comments Generally 5/5 Ankle/Foot Strength Ankle and Foot Manual Muscle Testing Right Comments Generally 5/5 Left Inversion 3 Fair Comments L foot deformity limiting IV mobility. PT-OP-Q Treatments Start: 01/31/21 17:56 Freq: Status: Active Protocol: Document 04/05/21 13:47 SP (Rec: 04/05/21 14:45 SP [id number]) Gait Training Gait Activity Gait Quad Cane Description Working farily light to somewhat hard Device Used SBQC in RUE instruction 3pt gait for increased stabiltiy Level of Assistance CGA Surface firm Distance/Duration 173 ft in 5min 17 sec before required seated rest Treatment Focus quad facilitation during swing through, heel toe R>L LE, LLE toe clearance Comments Use metronome for reyna set at 85 bpm (75 and 80 bpm felt to slow for her). Neuro Re-Education Treatment Balance Activities ARRIETA Comments reassessed today- 40-59% impaired PT-OP-T Assessment and Plan Start: 01/31/21 17:56 Freq: Status: Active Protocol: Document 04/05/21 13:47 SP (Rec: 04/05/21 14:45 SP [id number]) Physical Therapy Assessment Goals Four Impairment Decreased endurance (30 sec sit to stand - 9 reps; 5TSTS = 15.7 secs) Short Term Goal (STG) Improve 5TSTS TO 12.6 secs ( Norm for 80-89 yo is 14.8 sec' s) 02/21/21: progressin reps in 16 sec. 03/08/21: 5 reps 19 sec ( moderate retro lean x1 self recovery quick sit into chair no UE support). (03/11/21: 17 secs with good control w/o use of hands) 04/02/21: 15.15 sec STG Duration 03/08/21 (04/02/21: progressing ) Longterm Goal (LTG) Improve 30 sit to stand to 10- 15 reps (norm for ages 75-79 is 10-15 reps) 02/21/21: progressin.5 reps in 30 sec. 03/01/21: progressing 10 reps in 30 sec today. 03/08/21: 12 reps in 30 sec no UE support- 1 retro lean quick descent self recovery. 04/02/21: 12 reps arms across chest, stable. LTG Duration 05/05/21 (03/08/21: MET GOAL) Three Impairment Decreased Balance per ARRIETA score of 18 (60<80% impaired) Short Term Goal (STG) Improve standing reach (5 or more safely), and ability to stand and look behind without loss of balance. 03/08/21: porgressing: able to reach 5 outside PAULO without LOB. 04/02/21: 7 outside PAULO forward STG Duration 03/22/21 (03/08/21: GOAL MET) Longterm Goal (LTG) ARRIETA balance score of 34-44 ( 20<40% impaired) 03/08/21: - still high risk for falls. 04/05/21: 32/56- 40-59% impaired, moderate risk for falls LTG Duration 05/05/21 (04/05/21: Progressing) Two Impairment Decreased gait with need of FWW for safety (Tinetti 13 = high fall risk) Short Term Goal (STG) Overall Tinetti score 23-27 (1 <20% impaired) or score 19-24 (medium fall risk, <14 high fall) risk). 02/21/21: progressing , high risk for falls. 03/08/21: 09/17, high risk for falls. 03/11/21: Tinetti score is 18 (20<40% impaired) high risk for falls. 04/02/21: Moderate risk for falls (1-20% impaired). STG Duration 03/22/21 (04/02/21: Progressing ) Longterm Goal (LTG) Pt will be able to walk without a cane safely 100' or more. 03/08/21: progressing: gait 152 ft using QC required stand rest for recovery 10-15 sec, provided SBA w/ gait belt for safety. 04/02/21: Completed 6MWT in 152ft requiring 3 x3 sec brief stop stand rests for recovery . LTG Duration 05/05/21 (04/02/21: Progressing) One Impairment Lacks appropriate HEP. Short Term Goal (STG) Improve ABC score 41-60 (40<60 % impaired). Eval score is 10 .62. 02/26/21: 31% 03/08/21: 71.875 % STG Duration 03/22/21 (03/08/21:progressing) Longterm Goal (LTG) Pt will be independent with a self care HEP to promote improving LE strength and balance. 03/05/21 HEP: ankle PF&EV TB, LAQ TB , posture scap squeeze w/ shld ER TB, heel toe walking, self STMs to calf/ quad/HS, eccentric HS curl TB, coordination foot ruano/ ankle IV/EV side taps/. LTG Duration 05/05/21 (03/05/21: Progressed) Assessment Summary Assessment Todays tx focused on Arrieta balance assessment improved in Arrieta score from 23/56 to 32 /56 and gait using QC w/ metronome pacing comparison of 6 MWT assessed last tx without metronome use, and pt was able to walk 21 feet further in 43 less seconds. Pt continues to requires WBOS for increased stability and use of UE support during standing dynamic activities as pivoting or changing WBOS to NBOS for increased stability. Physical Therapy Plan Frequency and Duration Frequency of Treatment 2x/Week Plan of Care Start Date 02/04/21 Plan of Care End Date 05/05/21 Therapeutic Interventions Therapeutic Interventions Balance Training,Coordination Training,Gait Training,Home Exercise Program,Manual Therapy,Neuromuscular Re- education,Patient/Caregiver Education,Self-Care/Home Management,Therapeutic Activities,Therapeutic Exercises Modalities Cold Pack/Ice Massage,Hot Packs Next Visit Focus/Plan Next Note Type Treatment Note Next Visit Plan Continue gait w/ QC metronome at 85bpm, standing balance activities. PT POC: Continue standing strengthening, balance. Continue focus also on improving endurance of sit to stand speed with controlled descent w/out UE support, tolerance/strength and gait with QC, balance training in mirror, postural training, LLE (ankles, hips & ecc knee) strengthening, proprioceptive/ coordination training foot taps ruano>midshin>ankle, IV/EV movements, and progression in HEP.
--- NOTE | 2021-04-09 15:16 | PT.OTN ---
Current Diagnoses Muscle weakness (generalized) (04/09/21) Difficulty in walking, not elsewhere classified (04/09/21) Abnormal posture (04/09/21) Other symptoms and signs involving the nervous system (04/09/21) Physical Therapy Treatment Note PT-OP-A Visit Information Start: 01/31/21 17:56 Freq: Status: Active Protocol: Document 04/09/21 14:36 SP (Rec: 04/09/21 15:42 SP [id number]) Out-Patient Physical Therapy Visit Information Visit Information Visit Type Treatment Note Visit Start Time 14:36 Visit Stop Time 15:16 Total Visit Minutes 40 Visit Number 18 Number of SPECIAL NEEDS TEACHER Visits 4 Evaluation Information Evaluation Date 02/04/21 Precautions Precautions 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 PT-OP-B Current Condition Start: 01/31/21 17:56 Freq: Status: Active Protocol: Document 02/04/21 08:18 LRN (Rec: 02/04/21 09:07 LRN [id number]) Current Condition History of Current Condition Onset Date November 2019 Current Complaints Having to use walker to walk. 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 In hospital 3-4 days, transferred to [facility] in [place] (group home) and found PT to not be helpful, then home health care after 14 days of quarrentine after catching COVID. Had home health PT for 3 months. Now seeking outpatient PT independently. States she needs help walking without a walker. Have fallen a few times immediately after returning home, due to weak L leg. Doesn't have feeling in feet and has sharp pains in feet; therefore on Gabapentin. Uses topical CBD cream that helps a little. During the day and while walking around, no pain. Pain in feet is mainly at night when trying to go to sleep, or sitting watching TV. Prior Treatments and Tests Few years ago had PT for neuropathy. Has treadmill at home that she uses sometimes. Treatment Goals Patient/Caregiver Goals Pt goal is to be able to walk without a walker using a cane, improve endurance and balance and pt agreeable to being placed on a HEP at discharge. 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 Had to sit on bench to rest. Baseline Function- Other Up/down steps using 2 railings . Current Functional Impairments (Reported) Functional Limitations- ADL's Ambs around home occasioinally without walker (kitchen to living room, living room to laudry room and bathrrom). Walks on deck with FWW. Functional Limitations- Mobility/Gait Ambulates with FWW independently. 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 Can go up/down steps using 2 railings. Personal Factors Other Personal Factors That May Effect Neuropathy of the feet. Therapy/Recovery PT-OP-C Subjective Start: 01/31/21 17:56 Freq: Status: Active Protocol: Document 04/09/21 14:36 SP (Rec: 04/09/21 15:42 SP [id number]) OP-PT Subjective Patient Comments Patient Comments Pt stated very compliant with walking at home on deck with QC and balance HEP. She stated doesnt' feel confident using QC in public with uneven ground and many persons around so continues to use 4WW. PT-OP-D Balance Start: 01/31/21 17:56 Freq: Status: Active Protocol: Document 04/05/21 13:47 SP (Rec: 04/05/21 14:48 SP [id number]) Balance Tests Angeles Balance Test Angeles Balance Test Score 32 Angeles Impairment Rating 40 to 59% Impaired (Score 23- 33) PT-OP-E Functional Tests Start: 01/31/21 17:56 Freq: Status: Active Protocol: Document 04/02/21 14:36 SP (Rec: 04/02/21 15:45 SP [id number]) Functional Tests 30 Second Sit to Stand Test Score 12 Comments good Tinetti Balance and Gait Assessment Balance Score 12 Gait Score 8 Composite Score 20 Balance Score Impairment Rating 20 to <40% Impaired (Score 10- 12) Gait Score Impairment Rating 20 to <40% Impaired (Score 8-9 ) Composite Score Impairment Rating 1 to <20% Impaired (Score 23- 27) Other 5TSTS Name of Test 5 STS for time Score 15.15 sec Comment improved from 17 sec on PT-OP-G Mobility & Gait Start: 01/31/21 17:56 Freq: Status: Active Protocol: Document 02/04/21 08:18 LRN (Rec: 02/04/21 09:07 LRN [id number]) OP Gait Assessment Gait Gait Assistance Required: Independent Distance (Feet) 100 Able to Maintain Weight Bearing Status Yes During Gait Assistive Devices Assistive Device Front Wheeled Walker Gait Deviations General Gait Pattern Decreased Stride Length,Flexed Trunk,Lateral Trunk Lean, Narrow Based Gait,Step-to Gait Factors Limiting Gait Function Factors Limiting Gait Function Decreased Activity Tolerance, Decreased Strength,Poor Balance PT-OP-J Posture/Palpation/Skin Start: 01/31/21 17:56 Freq: Status: Active Protocol: Document 02/04/21 08:18 LRN (Rec: 02/04/21 09:07 LRN [id number]) Posture Evaluation Position Standing Head/C-Spine Posture Forward Head T-Spine Posture Increased Kyphosis L-Spine Posture Flattened Shoulder Posture (L) Elevated Pelvis Posture Anteriorly Tilted,Posterior Tilted Weight Distribution Weight Shifted Right Knee Posture (L) Genu Valgus,(R) Genu Valgus Comments Posture Comments Foot deformity FB at hips ~35 deg's, L hip retracted. PT-OP-M Strength Start: 01/31/21 17:56 Freq: Status: Active Protocol: Document 02/04/21 08:18 LRN (Rec: 02/04/21 09:07 LRN [id number]) Hip Strength Hip Manual Muscle Testing Right Flexion (L2) 5 Normal Left Flexion (L2) 4 Good Knee Strength Knee Manual Muscle Testing Right Comments Generally 5/5 Left Comments Generally 5/5 Ankle/Foot Strength Ankle and Foot Manual Muscle Testing Right Comments Generally 5/5 Left Inversion 3 Fair Comments L foot deformity limiting IV mobility. PT-OP-Q Treatments Start: 01/31/21 17:56 Freq: Status: Active Protocol: Document 04/09/21 14:36 SP (Rec: 04/09/21 15:42 SP [id number]) Therapeutic Exercises Sitting Exercises coordination foot taps opp LE Sitting Exercise Name tap w/heel, opp dorsal foot, ruano, knee Side bilateral Resistance AROM Equipment Used seated in 18 chair Comments looking for awareness, not looking LAQ Sitting Exercise Name w/ PF of ankle- reviewed HEP Side bilateral Equipment Used RTB loop Reps/Minutes 10 x 3 Comments good slow pacing Standing Exercises lunge hip flexor stretch Standing Exercise Name R>L (cued allow heel raise) Side right Equipment Used rail support Reps/Minutes 30 x2 Comments cued tall posture and allow heel elevate for focus front hip stretch band walk Standing Exercise Name lateral Side bilateral Resistance RTB Equipment Used //bar assist PRN (x2 brief contact) Reps/Minutes 10 ft x2 laps Comments cued slow eccentric control trailing foot and clearance sit <> stands Standing Exercise Name arms across chest Equipment Used 18 chair Reps/Minutes 12 reps in 30 sec, 5 reps in 15sec Comments good forward weight shift and acceptance, cued control of descent Gait Training Gait Activity 6MWT Device Used QC Level of Assistance SBA Surface frim Distance/Duration 192.5 ft (improved 40.5 ft since 2 tx ago) Treatment Focus 3pt gait, equal step length and foot clearance, endurance Comments improvement able to complete testing today w/out breaks. Improvement noted more fluid patterning.- Forgot metronome but paces about 85 BPM. Neuro Re-Education Treatment Balance Activities single dmitriy stepping Details over back, knee ext/ heel toe/ COG over PAULO Surface firm Equipment 1 dmitriy, //bar or CONSULTING UTILITY FORESTER light contact Reps/Duration 2x5 reps R and L Comments cued quad and hip abd fac, COG over PAULO to allow opposite LE transition PT-OP-T Assessment and Plan Start: 01/31/21 17:56 Freq: Status: Active Protocol: Document 04/09/21 14:36 SP (Rec: 04/09/21 15:42 SP [id number]) Physical Therapy Assessment Goals Four Impairment Decreased endurance (30 sec sit to stand - 9 reps; 5TSTS = 15.7 secs) Short Term Goal (STG) Improve 5TSTS TO 12.6 secs ( Norm for 80-89 yo is 14.8 sec' s) 02/21/21: progressin reps in 16 sec. 03/08/21: 5 reps 19 sec ( moderate retro lean x1 self recovery quick sit into chair no UE support). (03/11/21: 17 secs with good control w/o use of hands) 04/02/21: 15.15 sec 04/09/21: 13 sec. STG Duration 03/08/21 (04/09/21: progressing ) Natural Resources Engineer Goal (LTG) Improve 30 sit to stand to 10- 15 reps (norm for ages 75-79 is 10-15 reps) 02/21/21: progressin.5 reps in 30 sec. 03/01/21: progressing 10 reps in 30 sec today. 03/08/21: 12 reps in 30 sec no UE support- 1 retro lean quick descent self recovery. 04/02/21: 12 reps arms across chest, stable. LTG Duration 05/05/21 (03/08/21: MET GOAL) Three Impairment Decreased Balance per ANGELES score of 18 (60<80% impaired) Short Term Goal (STG) Improve standing reach (5 or more safely), and ability to stand and look behind without loss of balance. 03/08/21: porgressing: able to reach 5 outside PAULO without LOB. 04/02/21: 7 outside PAULO forward STG Duration 03/22/21 (03/08/21: GOAL MET) Natural Resources Engineer Goal (LTG) ANGELES balance score of 34-44 ( 20<40% impaired) 03/08/21: 23/56- still high risk for falls. 04/05/21: 32/56- 40-59% impaired, moderate risk for falls LTG Duration 05/05/21 (04/05/21: Progressing) Two Impairment Decreased gait with need of FWW for safety (Tinetti 13 = high fall risk) Short Term Goal (STG) Overall Tinetti score 23-27 (1 <20% impaired) or score 19-24 (medium fall risk, <14 high fall) risk). 02/21/21: progressing , high risk for falls. 03/08/21: 09/17, high risk for falls. 03/11/21: Tinetti score is 18 (20<40% impaired) high risk for falls. 04/02/21: Moderate risk for falls (1-20% impaired). STG Duration 03/22/21 (04/02/21: Progressing ) Natural Resources Engineer Goal (LTG) Pt will be able to walk without a cane safely 100' or more. 03/08/21: progressing: gait 152 ft using QC required stand rest for recovery 10-15 sec, provided SBA w/ gait belt for safety. 04/02/21: Completed 6MWT in 152ft requiring 3 x3 sec brief stop stand rests for recovery . 04/09/21: completed 6MWT in 192 .5 ft w/ QC with improved more fluid 3 pt patterning. LTG Duration 05/05/21 (04/09/21: Progressing) One Impairment Lacks appropriate HEP. Short Term Goal (STG) Improve ABC score 41-60 (40<60 % impaired). Eval score is 10 .62. 02/26/21: 31% 03/08/21: 71.875 % STG Duration 03/22/21 (03/08/21:progressing) Jail Goal (LTG) Pt will be independent with a self care HEP to promote improving LE strength and balance. 03/05/21 HEP: ankle PF&EV TB, LAQ TB , posture scap squeeze w/ shld ER TB, heel toe walking, self STMs to calf/ quad/HS, eccentric HS curl TB, coordination foot ruano/ ankle IV/EV side taps/. LTG Duration 05/05/21 (03/05/21: Progressed) Progress Towards Goals Progress Towards Goals Progressing Toward Goals Progress Comments improved distance gait 250 ft total, 192.5 ft in 6 min w /QC . Assessment Summary Assessment Pt progressing in endurance with more confidence in gait using QC level surfaces inPT and home, still not comfortable performing [facility]. Tx focused on balance, gait and LE strengthening with noted worked hard, + SOB requiring rest breaks between activities . Physical Therapy Plan Frequency and Duration Frequency of Treatment 2x/Week Plan of Care Start Date 02/04/21 Plan of Care End Date 05/05/21 Therapeutic Interventions Therapeutic Interventions Balance Training,Coordination Training,Gait Training,Home Exercise Program,Manual Therapy,Neuromuscular Re- education,Patient/Caregiver Education,Self-Care/Home Management,Therapeutic Activities,Therapeutic Exercises Modalities Cold Pack/Ice Massage,Hot Packs Next Visit Focus/Plan Next Note Type Treatment Note Next Visit Plan Continue gait w/ QC metronome at 85bpm, standing balance activities. PT POC: Continue focus also on improving endurance of sit to stand speed with controlled descent w/out UE support, tolerance/strength and gait with QC, balance training in mirror, postural training, LLE (ankles, hips & ecc knee) strengthening, IV/EV movements , and progression in HEP.
--- NOTE | 2021-04-12 14:38 | PT.OTN ---
Current Diagnoses Muscle weakness (generalized) (04/12/21) Difficulty in walking, not elsewhere classified (04/12/21) Abnormal posture (04/12/21) Other symptoms and signs involving the nervous system (04/12/21) Physical Therapy Treatment Note PT-OP-A Visit Information Start: 01/31/21 17:56 Freq: Status: Active Protocol: Document 04/12/21 12:45 LRN (Rec: 04/12/21 13:37 LRN [id number]) Out-Patient Physical Therapy Visit Information Visit Information Visit Type Treatment Note Visit Start Time 12:45 Visit Stop Time 13:34 Total Visit Minutes 49 Visit Number 19 Evaluation Information Evaluation Date 02/04/21 Precautions Precautions 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 PT-OP-B Current Condition Start: 01/31/21 17:56 Freq: Status: Active Protocol: Document 02/04/21 08:18 LRN (Rec: 02/04/21 09:07 LRN [id number]) Current Condition History of Current Condition Onset Date November 2019 Current Complaints Having to use walker to walk. 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 In hospital 3-4 days, transferred to [facility] in [place] (fdc) and found PT to not be helpful, then home health care after 14 days of quarrentine after catching COVID. Had home health PT for 3 months. Now seeking outpatient PT independently. States she needs help walking without a walker. Have fallen a few times immediately after returning home, due to weak L leg. Doesn't have feeling in feet and has sharp pains in feet; therefore on Gabapentin. Uses topical CBD cream that helps a little. During the day and while walking around, no pain. Pain in feet is mainly at night when trying to go to sleep, or sitting watching TV. Prior Treatments and Tests Few years ago had PT for neuropathy. Has treadmill at home that she uses sometimes. Treatment Goals Patient/Caregiver Goals Pt goal is to be able to walk without a walker using a cane, improve endurance and balance and pt agreeable to being placed on a HEP at discharge. 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 Had to sit on bench to rest. Baseline Function- Other Up/down steps using 2 railings . Current Functional Impairments (Reported) Functional Limitations- ADL's Ambs around home occasioinally without walker (kitchen to living room, living room to laudry room and bathrrom). Walks on deck with FWW. Functional Limitations- Mobility/Gait Ambulates with FWW independently. 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 Can go up/down steps using 2 railings. Personal Factors Other Personal Factors That May Effect Neuropathy of the feet. Therapy/Recovery PT-OP-C Subjective Start: 01/31/21 17:56 Freq: Status: Active Protocol: Document 04/12/21 12:45 LRN (Rec: 04/12/21 13:37 LRN [id number]) OP-PT Subjective Patient Comments Patient Comments Is walking on her deck with a QC. No feeling in feet, can't tell if toes are catching with walking. Not able to make next appt due to another appt. PT-OP-D Balance Start: 01/31/21 17:56 Freq: Status: Active Protocol: Document 04/05/21 13:47 SP (Rec: 04/05/21 14:48 SP [id number]) Balance Tests Arrieta Balance Test Arrieta Balance Test Score 32 Arrieta Impairment Rating 40 to 59% Impaired (Score 23- 33) PT-OP-E Functional Tests Start: 01/31/21 17:56 Freq: Status: Active Protocol: Document 04/02/21 14:36 SP (Rec: 04/02/21 15:45 SP [id number]) Functional Tests 30 Second Sit to Stand Test Score 12 Comments good Tinetti Balance and Gait Assessment Balance Score 12 Gait Score 8 Composite Score 20 Balance Score Impairment Rating 20 to <40% Impaired (Score 10- 12) Gait Score Impairment Rating 20 to <40% Impaired (Score 8-9 ) Composite Score Impairment Rating 1 to <20% Impaired (Score 23- 27) Other 5TSTS Name of Test 5 STS for time Score 15.15 sec Comment improved from 17 sec on PT-OP-G Mobility & Gait Start: 01/31/21 17:56 Freq: Status: Active Protocol: Document 02/04/21 08:18 LRN (Rec: 02/04/21 09:07 LRN [id number]) OP Gait Assessment Gait Gait Assistance Required: Independent Distance (Feet) 100 Able to Maintain Weight Bearing Status Yes During Gait Assistive Devices Assistive Device Front Wheeled Walker Gait Deviations General Gait Pattern Decreased Stride Length,Flexed Trunk,Lateral Trunk Lean, Narrow Based Gait,Step-to Gait Factors Limiting Gait Function Factors Limiting Gait Function Decreased Activity Tolerance, Decreased Strength,Poor Balance PT-OP-J Posture/Palpation/Skin Start: 01/31/21 17:56 Freq: Status: Active Protocol: Document 02/04/21 08:18 LRN (Rec: 02/04/21 09:07 LRN [id number]) Posture Evaluation Position Standing Head/C-Spine Posture Forward Head T-Spine Posture Increased Kyphosis L-Spine Posture Flattened Shoulder Posture (L) Elevated Pelvis Posture Anteriorly Tilted,Posterior Tilted Weight Distribution Weight Shifted Right Knee Posture (L) Genu Valgus,(R) Genu Valgus Comments Posture Comments Foot deformity FB at hips ~35 deg's, L hip retracted. PT-OP-M Strength Start: 01/31/21 17:56 Freq: Status: Active Protocol: Document 02/04/21 08:18 LRN (Rec: 02/04/21 09:07 LRN [id number]) Hip Strength Hip Manual Muscle Testing Right Flexion (L2) 5 Normal Left Flexion (L2) 4 Good Knee Strength Knee Manual Muscle Testing Right Comments Generally 5/5 Left Comments Generally 5/5 Ankle/Foot Strength Ankle and Foot Manual Muscle Testing Right Comments Generally 5/5 Left Inversion 3 Fair Comments L foot deformity limiting IV mobility. PT-OP-Q Treatments Start: 01/31/21 17:56 Freq: Status: Active Protocol: Document 04/12/21 12:45 LRN (Rec: 04/12/21 13:37 LRN [id number]) Therapeutic Exercises Sitting Exercises BKFO Sitting Exercise Name BKFO Side bilateral Reps/Minutes 10x 3 LAQ Sitting Exercise Name w/ PF of ankle Side bilateral Equipment Used Blue TB loop Reps/Minutes 10 x 3 Comments good slow pacing L ankle ROM/ TB Sitting Exercise Name Ankle EV/IV strengthening Side bilateral Resistance Single strand Lev 1 TB Reps/Minutes 30x each Gait Training Gait Activity Gait Quad Cane Description Working farily light to somewhat hard Device Used SBQC in RUE instruction 3pt gait for increased stabiltiy Level of Assistance CGA Surface firm Distance/Duration 5' w/5' rest + 6' w/6' + drink Treatment Focus quad facilitation during swing through, heel toe R>L LE, LLE toe clearance Comments Use metronome for reyna set at 85 bpm (75 and 80 bpm felt to slow for her). PT-OP-T Assessment and Plan Start: 01/31/21 17:56 Freq: Status: Active Protocol: Document 04/12/21 12:45 LRN (Rec: 04/12/21 13:37 LRN [id number]) Physical Therapy Assessment Goals Four Impairment Decreased endurance (30 sec sit to stand - 9 reps; 5TSTS = 15.7 secs) Short Term Goal (STG) Improve 5TSTS TO 12.6 secs ( Norm for 80-89 yo is 14.8 sec' s) 02/21/21: progressin reps in 16 sec. 03/08/21: 5 reps 19 sec ( moderate retro lean x1 self recovery quick sit into chair no UE support). (03/11/21: 17 secs with good control w/o use of hands) 04/02/21: 15.15 sec 04/09/21: 13 sec. STG Duration 03/08/21 (04/09/21: progressing ) Detention Goal (LTG) Improve 30 sit to stand to 10- 15 reps (norm for ages 75-79 is 10-15 reps) 02/21/21: progressin.5 reps in 30 sec. 03/01/21: progressing 10 reps in 30 sec today. 03/08/21: 12 reps in 30 sec no UE support- 1 retro lean quick descent self recovery. 04/02/21: 12 reps arms across chest, stable. LTG Duration 05/05/21 (03/08/21: MET GOAL) Three Impairment Decreased Balance per ARRIETA score of 18 (60<80% impaired) Short Term Goal (STG) Improve standing reach (5 or more safely), and ability to stand and look behind without loss of balance. 03/08/21: porgressing: able to reach 5 outside PAULO without LOB. 04/02/21: 7 outside PAULO forward STG Duration 03/22/21 (03/08/21: GOAL MET) Covering Machine Operator Helper Goal (LTG) ARRIETA balance score of 34-44 ( 20<40% impaired) 03/08/21: 23- still high risk for falls. 04/05/21: /56- 40-59% impaired, moderate risk for falls LTG Duration 05/05/21 (04/05/21: Progressing) Two Impairment Decreased gait with need of FWW for safety (Tinetti 13 = high fall risk) Short Term Goal (STG) Overall Tinetti score 23-27 (1 <20% impaired) or score 19-24 (medium fall risk, <14 high fall) risk). 02/21/21: progressing , high risk for falls. 03/08/21: 09/17, high risk for falls. 03/11/21: Tinetti score is 18 (20<40% impaired) high risk for falls. 04/02/21: Moderate risk for falls (1-20% impaired). STG Duration 03/22/21 (04/02/21: Progressing ) Detention Goal (LTG) Pt will be able to walk without a cane safely 100' or more. 03/08/21: progressing: gait 152 ft using QC required stand rest for recovery 10-15 sec, provided SBA w/ gait belt for safety. 04/02/21: Completed 6MWT in 152ft requiring 3 x3 sec brief stop stand rests for recovery . 04/09/21: completed 6MWT in 192 .5 ft w/ QC with improved more fluid 3 pt patterning. LTG Duration 05/05/21 (04/09/21: Progressing) One Impairment Lacks appropriate HEP. Short Term Goal (STG) Improve ABC score 41-60 (40<60 % impaired). Eval score is 10 .62. 02/26/21: 31% 03/08/21: 71.875 % STG Duration 03/22/21 (03/08/21:progressing) Detention Goal (LTG) Pt will be independent with a self care HEP to promote improving LE strength and balance. 03/05/21 HEP: ankle PF&EV TB, LAQ TB , posture scap squeeze w/ shld ER TB, heel toe walking, self STMs to calf/ quad/HS, eccentric HS curl TB, coordination foot ruano/ ankle IV/EV side taps/. LTG Duration 05/05/21 (03/05/21: Progressed) Assessment Summary Assessment Pt endurance is poor. Pt works at fairly hard level 3-5 ' before needing a sit rest. Pt able to walk with good reyna with QC with step to gait. Pt had LOB a few times with a normal gait; therefore further training needed. Physical Therapy Plan Frequency and Duration Frequency of Treatment 2x/Week Plan of Care Start Date 02/04/21 Plan of Care End Date 05/05/21 Next Visit Focus/Plan Next Note Type Treatment Note Next Visit Plan Continue gait w/ QC metronome at 85bpm, standing balance activities. PT POC: Continue focus also on improving endurance of sit to stand speed with controlled descent w/out UE support, tolerance/strength and gait with QC, balance training in mirror, postural training, LLE (ankles, hips & ecc knee) strengthening, IV/EV movements , and progression in HEP.
--- NOTE | 2021-04-16 17:07 | PT.OTN ---
Current Diagnoses Muscle weakness (generalized) (04/16/21) Difficulty in walking, not elsewhere classified (04/16/21) Abnormal posture (04/16/21) Other symptoms and signs involving the nervous system (04/16/21) Physical Therapy Treatment Note PT-OP-A Visit Information Start: 01/31/21 17:56 Freq: Status: Active Protocol: Document 04/16/21 14:22 LRN (Rec: 04/16/21 15:06 LRN [id number]) Out-Patient Physical Therapy Visit Information Visit Information Visit Type Progress Note Visit Start Time 14:22 Visit Stop Time 15:02 Total Visit Minutes 40 Visit Number 20 Evaluation Information Evaluation Date 02/04/21 Precautions Precautions 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 PT-OP-B Current Condition Start: 01/31/21 17:56 Freq: Status: Active Protocol: Document 02/04/21 08:18 LRN (Rec: 02/04/21 09:07 LRN [id number]) Current Condition History of Current Condition Onset Date November 2019 Current Complaints Having to use walker to walk. 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 In hospital 3-4 days, transferred to [facility] in [place] (senior care) and found PT to not be helpful, then home health care after 14 days of quarrentine after catching COVID. Had home health PT for 3 months. Now seeking outpatient PT independently. States she needs help walking without a walker. Have fallen a few times immediately after returning home, due to weak L leg. Doesn't have feeling in feet and has sharp pains in feet; therefore on Gabapentin. Uses topical CBD cream that helps a little. During the day and while walking around, no pain. Pain in feet is mainly at night when trying to go to sleep, or sitting watching TV. Prior Treatments and Tests Few years ago had PT for neuropathy. Has treadmill at home that she uses sometimes. Treatment Goals Patient/Caregiver Goals Pt goal is to be able to walk without a walker using a cane, improve endurance and balance and pt agreeable to being placed on a HEP at discharge. 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 Had to sit on bench to rest. Baseline Function- Other Up/down steps using 2 railings . Current Functional Impairments (Reported) Functional Limitations- ADL's Ambs around home occasioinally without walker (kitchen to living room, living room to laudry room and bathrrom). Walks on deck with FWW. Functional Limitations- Mobility/Gait Ambulates with FWW independently. 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 Can go up/down steps using 2 railings. Personal Factors Other Personal Factors That May Effect Neuropathy of the feet. Therapy/Recovery PT-OP-C Subjective Start: 01/31/21 17:56 Freq: Status: Active Protocol: Document 04/16/21 14:22 LRN (Rec: 04/16/21 15:06 LRN [id number]) OP-PT Subjective Patient Comments Patient Comments Walking with a cane seems to be easier, and sitting and standing is easier. Patient Questionnaires ABC- Activity Specific Balance Confidence Scale ABC Score 43 ABC Functional Impairment 40 to <60% Impaired (Score 41- 60) PT-OP-D Balance Start: 01/31/21 17:56 Freq: Status: Active Protocol: Document 04/05/21 13:47 SP (Rec: 04/05/21 14:48 SP [id number]) Balance Tests Arrieta Balance Test Arrieta Balance Test Score 32 Arrieta Impairment Rating 40 to 59% Impaired (Score 23- 33) PT-OP-E Functional Tests Start: 01/31/21 17:56 Freq: Status: Active Protocol: Document 04/02/21 14:36 SP (Rec: 04/02/21 15:45 SP [id number]) Functional Tests 30 Second Sit to Stand Test Score 12 Comments good Tinetti Balance and Gait Assessment Balance Score 12 Gait Score 8 Composite Score 20 Balance Score Impairment Rating 20 to <40% Impaired (Score 10- 12) Gait Score Impairment Rating 20 to <40% Impaired (Score 8-9 ) Composite Score Impairment Rating 1 to <20% Impaired (Score 23- 27) Other 5TSTS Name of Test 5 STS for time Score 15.15 sec Comment improved from 17 sec on PT-OP-G Mobility & Gait Start: 01/31/21 17:56 Freq: Status: Active Protocol: Document 02/04/21 08:18 LRN (Rec: 02/04/21 09:07 LRN [id number]) OP Gait Assessment Gait Gait Assistance Required: Independent Distance (Feet) 100 Able to Maintain Weight Bearing Status Yes During Gait Assistive Devices Assistive Device Front Wheeled Walker Gait Deviations General Gait Pattern Decreased Stride Length,Flexed Trunk,Lateral Trunk Lean, Narrow Based Gait,Step-to Gait Factors Limiting Gait Function Factors Limiting Gait Function Decreased Activity Tolerance, Decreased Strength,Poor Balance PT-OP-J Posture/Palpation/Skin Start: 01/31/21 17:56 Freq: Status: Active Protocol: Document 02/04/21 08:18 LRN (Rec: 02/04/21 09:07 LRN [id number]) Posture Evaluation Position Standing Head/C-Spine Posture Forward Head T-Spine Posture Increased Kyphosis L-Spine Posture Flattened Shoulder Posture (L) Elevated Pelvis Posture Anteriorly Tilted,Posterior Tilted Weight Distribution Weight Shifted Right Knee Posture (L) Genu Valgus,(R) Genu Valgus Comments Posture Comments Foot deformity FB at hips ~35 deg's, L hip retracted. PT-OP-M Strength Start: 01/31/21 17:56 Freq: Status: Active Protocol: Document 02/04/21 08:18 LRN (Rec: 02/04/21 09:07 LRN [id number]) Hip Strength Hip Manual Muscle Testing Right Flexion (L2) 5 Normal Left Flexion (L2) 4 Good Knee Strength Knee Manual Muscle Testing Right Comments Generally 5/5 Left Comments Generally 5/5 Ankle/Foot Strength Ankle and Foot Manual Muscle Testing Right Comments Generally 5/5 Left Inversion 3 Fair Comments L foot deformity limiting IV mobility. PT-OP-Q Treatments Start: 01/31/21 17:56 Freq: Status: Active Protocol: Document 04/16/21 14:22 LRN (Rec: 04/16/21 15:06 LRN [id number]) Therapeutic Exercises Sitting Exercises L ankle DF Sitting Exercise Name L ankle DF Side left Equipment Used Lev 1 TB BKFO Sitting Exercise Name BKFO Side bilateral Equipment Used Lev 1 TB Reps/Minutes 10x 3 L ankle ROM/ TB Sitting Exercise Name Ankle EV/IV strengthening Side bilateral Resistance Single strand Lev 1 TB Reps/Minutes 30x each Gait Training Gait Activity Gait Quad Cane Description To Work: farily light to somewhat hard Device Used SBQC in RUE instruction 3pt gait for increased stabiltiy Level of Assistance CGA Surface firm Distance/Duration 6' w/2' rest + 6.5' Treatment Focus quad facilitation during swing through, heel toe R>L LE, LLE toe clearance Comments Gait for endurance within appropriate aerobic capacity. Did not have metronome to use for reyna set at 85 bpm (75 and 80 bpm felt to slow for her). Pt working sometimes too hard with gait. PT-OP-T Assessment and Plan Start: 01/31/21 17:56 Freq: Status: Active Protocol: Document 04/16/21 14:22 LRN (Rec: 04/16/21 15:06 LRN [id number]) Physical Therapy Assessment Rehab Potential Rehabilitation Potential Good Evaluation Complexity Number of Personal Factors/Comorbidities 1-2 Number of Body Systems Impaired 4 or More Clinical Presentation at Evaluation Evolving Impairments Impairments Activity Tolerance,Balance, Gait,Posture,Strength, Transfers Goals Four Impairment Decreased endurance (30 sec sit to stand - 9 reps; 5TSTS = 15.7 secs) Short Term Goal (STG) Improve 5TSTS TO 12.6 secs ( Norm for 80-89 yo is 14.8 sec' s) 02/21/21: progressin reps in 16 sec. 03/08/21: 5 reps 19 sec ( moderate retro lean x1 self recovery quick sit into chair no UE support). (03/11/21: 17 secs with good control w/o use of hands) 04/02/21: 15.15 sec 04/09/21: 13 sec. STG Duration 03/08/21 (04/09/21: progressing ) Correction Goal (LTG) Improve 30 sit to stand to 10- 15 reps (norm for ages 75-79 is 10-15 reps) 02/21/21: progressin.5 reps in 30 sec. 03/01/21: progressing 10 reps in 30 sec today. 03/08/21: 12 reps in 30 sec no UE support- 1 retro lean quick descent self recovery. 04/02/21: 12 reps arms across chest, stable. LTG Duration 05/05/21 (03/08/21: MET GOAL) Three Impairment Decreased Balance per ARRIETA score of 18 (60<80% impaired) Short Term Goal (STG) Improve standing reach (5 or more safely), and ability to stand and look behind without loss of balance. 03/08/21: porgressing: able to reach 5 outside PAULO without LOB. 04/02/21: 7 outside PAULO forward STG Duration 03/22/21 (03/08/21: GOAL MET) Pharmaceutical Analyst Goal (LTG) ARRIETA balance score of 34-44 ( 20<40% impaired) 03/08/21: - still high risk for falls. 04/05/21: /- 40-59% impaired, moderate risk for falls LTG Duration 05/05/21 (04/05/21: Progressing) Two Impairment Decreased gait with need of FWW for safety (Tinetti 13 = high fall risk) Short Term Goal (STG) Overall Tinetti score 23-27 (1 <20% impaired) or score 19-24 (medium fall risk, <14 high fall) risk). 02/21/21: progressing , high risk for falls. 03/08/21: 09/17, high risk for falls. 03/11/21: Tinetti score is 18 (20<40% impaired) high risk for falls. 04/02/21: Moderate risk for falls (1-20% impaired). STG Duration 03/22/21 (04/02/21: Progressing ) Correction Goal (LTG) Pt will be able to walk without a cane safely 100' or more. 03/08/21: progressing: gait 152 ft using QC required stand rest for recovery 10-15 sec, provided SBA w/ gait belt for safety. 04/02/21: Completed 6MWT in 152ft requiring 3 x3 sec brief stop stand rests for recovery . 04/09/21: completed 6MWT in 192 .5 ft w/ QC with improved more fluid 3 pt patterning. 04/16/21: Gait 150' w QC, 1 standing rest with 4 episodes of increased sway and pt able to maintain balance x 3. LTG Duration 05/05/21 (04/16/21: Progressing) One Impairment Lacks appropriate HEP. Short Term Goal (STG) Improve ABC score 41-60 (40<60 % impaired). Eval score is 10 .62. 02/26/21: 31% 03/08/21: 71.875 % 04/16/21: 43% of self confidence STG Duration 03/22/21 (04/16/21: MET GOAL) Pharmaceutical Analyst Goal (LTG) Pt will be independent with a self care HEP to promote improving LE strength and balance. 03/05/21 HEP: ankle PF&EV TB, LAQ TB , posture scap squeeze w/ shld ER TB, heel toe walking, self STMs to calf/ quad/HS, eccentric HS curl TB, coordination foot ruano/ ankle IV/EV side taps/. LTG Duration 05/05/21 (03/05/21: Progressed) Assessment Summary Assessment Pt is improving with therapy. Her endurance has improved per 5TSTS test taking 13 secs (initial was 15.7 secs) and met her goal for 30 sec sit to stand of 12 reps (intially was 9 reps). Her standing reach balance has improved with goal met. Her ARRIETA balance score improved from 18 /56 to 32/56, and Tinetti score improved from 13 to 20 showing pt is now at moderate risk of falling (initially high risk of falling). Her ABC score indicating % of self confidence improved from 10. 62% to 43%. The pt would benefit from continued skilled physical therapy to work towards improving balance, safety with gait, improved endurance, placement on a self care HEP, and continued working towards achieving the above stated goals. Physical Therapy Plan Frequency and Duration Frequency of Treatment 2x/Week Plan of Care Start Date 04/16/21 Plan of Care End Date 07/15/21 Therapeutic Interventions Therapeutic Interventions Balance Training,Coordination Training,Gait Training,Home Exercise Program,Manual Therapy,Neuromuscular Re- education,Patient/Caregiver Education,Self-Care/Home Management,Therapeutic Activities,Therapeutic Exercises Modalities Cold Pack/Ice Massage,Hot Packs Next Visit Focus/Plan Next Note Type Treatment Note Next Visit Plan Continue gait w/QC metronome at 85bpm, standing balance activities. PT POC: Continue focus also on improving balance and safety with gait and endurance of sit to stand speed with controlled descent w/out UE support, aerobic tolerance/ strength and gait with QC, balance training in mirror, postural training, LLE (ankles , hips & ecc knee) strengthening, IV/EV movements , and progression in HEP.
--- NOTE | 2021-04-19 12:21 | PT.OTN ---
Current Diagnoses Muscle weakness (generalized) (04/19/21) Difficulty in walking, not elsewhere classified (04/19/21) Abnormal posture (04/19/21) Other symptoms and signs involving the nervous system (04/19/21) Physical Therapy Treatment Note PT-OP-A Visit Information Start: 01/31/21 17:56 Freq: Status: Active Protocol: Document 04/19/21 11:29 LRN (Rec: 04/19/21 12:20 LRN [id number]) Out-Patient Physical Therapy Visit Information Visit Information Visit Type Treatment Note Visit Start Time 11:29 Visit Stop Time 12:07 Total Visit Minutes 38 Visit Number 21 Evaluation Information Evaluation Date 02/04/21 Precautions Precautions 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 PT-OP-B Current Condition Start: 01/31/21 17:56 Freq: Status: Active Protocol: Document 02/04/21 08:18 LRN (Rec: 02/04/21 09:07 LRN [id number]) Current Condition History of Current Condition Onset Date November 2019 Current Complaints Having to use walker to walk. 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 In hospital 3-4 days, transferred to [facility] in [place] (senior care) and found PT to not be helpful, then home health care after 14 days of quarrentine after catching COVID. Had home health PT for 3 months. Now seeking outpatient PT independently. States she needs help walking without a walker. Have fallen a few times immediately after returning home, due to weak L leg. Doesn't have feeling in feet and has sharp pains in feet; therefore on Gabapentin. Uses topical CBD cream that helps a little. During the day and while walking around, no pain. Pain in feet is mainly at night when trying to go to sleep, or sitting watching TV. Prior Treatments and Tests Few years ago had PT for neuropathy. Has treadmill at home that she uses sometimes. Treatment Goals Patient/Caregiver Goals Pt goal is to be able to walk without a walker using a cane, improve endurance and balance and pt agreeable to being placed on a HEP at discharge. 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 Had to sit on bench to rest. Baseline Function- Other Up/down steps using 2 railings . Current Functional Impairments (Reported) Functional Limitations- ADL's Ambs around home occasioinally without walker (kitchen to living room, living room to laudry room and bathrrom). Walks on deck with FWW. Functional Limitations- Mobility/Gait Ambulates with FWW independently. 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 Can go up/down steps using 2 railings. Personal Factors Other Personal Factors That May Effect Neuropathy of the feet. Therapy/Recovery PT-OP-C Subjective Start: 01/31/21 17:56 Freq: Status: Active Protocol: Document 04/19/21 11:29 LRN (Rec: 04/19/21 12:20 LRN [id number]) OP-PT Subjective Patient Comments Patient Comments States she is doing her ex's and walking on her deck. PT-OP-D Balance Start: 01/31/21 17:56 Freq: Status: Active Protocol: Document 04/05/21 13:47 SP (Rec: 04/05/21 14:48 SP [id number]) Balance Tests Arrieta Balance Test Arrieta Balance Test Score 32 Arrieta Impairment Rating 40 to 59% Impaired (Score 23- 33) PT-OP-E Functional Tests Start: 01/31/21 17:56 Freq: Status: Active Protocol: Document 04/02/21 14:36 SP (Rec: 04/02/21 15:45 SP [id number]) Functional Tests 30 Second Sit to Stand Test Score 12 Comments good Tinetti Balance and Gait Assessment Balance Score 12 Gait Score 8 Composite Score 20 Balance Score Impairment Rating 20 to <40% Impaired (Score 10- 12) Gait Score Impairment Rating 20 to <40% Impaired (Score 8-9 ) Composite Score Impairment Rating 1 to <20% Impaired (Score 23- 27) Other 5TSTS Name of Test 5 STS for time Score 15.15 sec Comment improved from 17 sec on PT-OP-G Mobility & Gait Start: 01/31/21 17:56 Freq: Status: Active Protocol: Document 02/04/21 08:18 LRN (Rec: 02/04/21 09:07 LRN [id number]) OP Gait Assessment Gait Gait Assistance Required: Independent Distance (Feet) 100 Able to Maintain Weight Bearing Status Yes During Gait Assistive Devices Assistive Device Front Wheeled Walker Gait Deviations General Gait Pattern Decreased Stride Length,Flexed Trunk,Lateral Trunk Lean, Narrow Based Gait,Step-to Gait Factors Limiting Gait Function Factors Limiting Gait Function Decreased Activity Tolerance, Decreased Strength,Poor Balance PT-OP-J Posture/Palpation/Skin Start: 01/31/21 17:56 Freq: Status: Active Protocol: Document 02/04/21 08:18 LRN (Rec: 02/04/21 09:07 LRN [id number]) Posture Evaluation Position Standing Head/C-Spine Posture Forward Head T-Spine Posture Increased Kyphosis L-Spine Posture Flattened Shoulder Posture (L) Elevated Pelvis Posture Anteriorly Tilted,Posterior Tilted Weight Distribution Weight Shifted Right Knee Posture (L) Genu Valgus,(R) Genu Valgus Comments Posture Comments Foot deformity FB at hips ~35 deg's, L hip retracted. PT-OP-M Strength Start: 01/31/21 17:56 Freq: Status: Active Protocol: Document 02/04/21 08:18 LRN (Rec: 02/04/21 09:07 LRN [id number]) Hip Strength Hip Manual Muscle Testing Right Flexion (L2) 5 Normal Left Flexion (L2) 4 Good Knee Strength Knee Manual Muscle Testing Right Comments Generally 5/5 Left Comments Generally 5/5 Ankle/Foot Strength Ankle and Foot Manual Muscle Testing Right Comments Generally 5/5 Left Inversion 3 Fair Comments L foot deformity limiting IV mobility. PT-OP-Q Treatments Start: 01/31/21 17:56 Freq: Status: Active Protocol: Document 04/19/21 11:29 LRN (Rec: 04/19/21 12:20 LRN [id number]) Therapeutic Exercises Sitting Exercises Sit to stands Sitting Exercise Name Sit to stand Reps/Minutes 10x Comments Cuing to not plop and for proper breathing. L ankle DF Sitting Exercise Name L ankle DF Side bilateral Equipment Used Lev 1 TB Reps/Minutes 30x L ankle ROM/ TB Sitting Exercise Name Ankle EV/IV strengthening Side bilateral Resistance Double strand Lev 1 TB Reps/Minutes 30x each Standing Exercises L knee ecc QS w/WBing Side left Resistance Lev 1 TB Reps/Minutes 5' Gait Training Gait Activity Gait w/o AD Description Gait with hands hovering Device Used // bars Level of Assistance SBA Surface Level Distance/Duration 2' Treatment Focus Good wgt shift, even step lengths, balance stablity Comments Pt demonstrated good weight shift with wide PAULO of feet. Gait Quad Cane Description To Work: farily light to somewhat hard Device Used SBQC in RUE instruction 3pt gait for increased stabiltiy Level of Assistance CGA Surface firm Distance/Duration ~11' with brief standing rest x 1 & rest after gt Treatment Focus quad facilitation during swing through, heel toe R>L LE, LLE toe clearance Comments Gait for endurance within appropriate aerobic capacity. Did not have metronome to use for reyna set at 85 bpm (75 and 80 bpm felt to slow for her). Pt working sometimes too hard with gait. PT-OP-T Assessment and Plan Start: 01/31/21 17:56 Freq: Status: Active Protocol: Document 04/19/21 11:29 LRN (Rec: 04/19/21 12:20 LRN [id number]) Physical Therapy Assessment Goals Four Impairment Decreased endurance (30 sec sit to stand - 9 reps; 5TSTS = 15.7 secs) Short Term Goal (STG) Improve 5TSTS TO 12.6 secs ( Norm for 80-89 yo is 14.8 sec' s) 02/21/21: progressin reps in 16 sec. 03/08/21: 5 reps 19 sec ( moderate retro lean x1 self recovery quick sit into chair no UE support). (03/11/21: 17 secs with good control w/o use of hands) 04/02/21: 15.15 sec 04/09/21: 13 sec. STG Duration 03/08/21 (04/09/21: progressing ) Prison Goal (LTG) Improve 30 sit to stand to 10- 15 reps (norm for ages 75-79 is 10-15 reps) 02/21/21: progressin.5 reps in 30 sec. 03/01/21: progressing 10 reps in 30 sec today. 03/08/21: 12 reps in 30 sec no UE support- 1 retro lean quick descent self recovery. 04/02/21: 12 reps arms across chest, stable. LTG Duration 05/05/21 (03/08/21: MET GOAL) Three Impairment Decreased Balance per ARRIETA score of 18 (60<80% impaired) Short Term Goal (STG) Improve standing reach (5 or more safely), and ability to stand and look behind without loss of balance. 03/08/21: porgressing: able to reach 5 outside PAULO without LOB. 04/02/21: 7 outside PAULO forward STG Duration 03/22/21 (03/08/21: GOAL MET) Prison Goal (LTG) ARRIETA balance score of 34-44 ( 20<40% impaired) 03/08/21: - still high risk for falls. 04/05/21: /- 40-59% impaired, moderate risk for falls LTG Duration 05/05/21 (04/05/21: Progressing) Two Impairment Decreased gait with need of FWW for safety (Tinetti 13 = high fall risk) Short Term Goal (STG) Overall Tinetti score 23-27 (1 <20% impaired) or score 19-24 (medium fall risk, <14 high fall) risk). 02/21/21: progressing , high risk for falls. 03/08/21: 09/17, high risk for falls. 03/11/21: Tinetti score is 18 (20<40% impaired) high risk for falls. 04/02/21: Moderate risk for falls (1-20% impaired). STG Duration 03/22/21 (04/02/21: Progressing ) Prison Goal (LTG) Pt will be able to walk without a cane safely 100' or more. 03/08/21: progressing: gait 152 ft using QC required stand rest for recovery 10-15 sec, provided SBA w/ gait belt for safety. 04/02/21: Completed 6MWT in 152ft requiring 3 x3 sec brief stop stand rests for recovery . 04/09/21: completed 6MWT in 192 .5 ft w/ QC with improved more fluid 3 pt patterning. 04/16/21: Gait 150' w QC, 1 standing rest with 4 episodes of increased sway and pt able to maintain balance x 3. LTG Duration 05/05/21 (04/16/21: Progressing) One Impairment Lacks appropriate HEP. Short Term Goal (STG) Improve ABC score 41-60 (40<60 % impaired). Eval score is 10 .62. 02/26/21: 31% 03/08/21: 71.875 % 04/16/21: 43% of self confidence STG Duration 03/22/21 (04/16/21: MET GOAL) Short Story Writer Goal (LTG) Pt will be independent with a self care HEP to promote improving LE strength and balance. 03/05/21 HEP: ankle PF&EV TB, LAQ TB , posture scap squeeze w/ shld ER TB, heel toe walking, self STMs to calf/ quad/HS, eccentric HS curl TB, coordination foot ruano/ ankle IV/EV side taps/. LTG Duration 05/05/21 (03/05/21: Progressed) Assessment Summary Assessment R hip flexor mildly sore after gait exercise, no complaints after rest. Pt showed good ecc control of her R quads with exercise. She showed better step rhythm with gait in // bars than with use of QC . Physical Therapy Plan Frequency and Duration Frequency of Treatment 2x/Week Plan of Care Start Date 04/16/21 Plan of Care End Date 07/15/21 Next Visit Focus/Plan Next Note Type Treatment Note Next Visit Plan Sit to stand to improve speed and control. Progress Gait training to w/o QC (100+ feet goal) and goal to improve endurance. Add scissored stance for balance with LLE posterior to RLE, and standing balance activities. PT POC: Continue focus on improving balance and safety with gait and endurance of sit to stand speed with controlled descent w/out UE support, aerobic tolerance/ strength and gait with QC, balance training in mirror, postural training, LLE (ankles , hips & ecc knee) strengthening, IV/EV movements , and progression in HEP.
--- NOTE | 2021-04-23 16:26 | PT.OTN ---
Current Diagnoses Muscle weakness (generalized) (04/23/21) Difficulty in walking, not elsewhere classified (04/23/21) Abnormal posture (04/23/21) Other symptoms and signs involving the nervous system (04/23/21) Physical Therapy Treatment Note PT-OP-A Visit Information Start: 01/31/21 17:56 Freq: Status: Active Protocol: Document 04/23/21 14:21 LRN (Rec: 04/23/21 15:08 LRN [id number]) Out-Patient Physical Therapy Visit Information Visit Information Visit Type Treatment Note Visit Note 2 after PN Visit Start Time 14:21 Visit Stop Time 15:01 Total Visit Minutes 40 Visit Number 22 Evaluation Information Evaluation Date 02/04/21 Precautions Precautions 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 PT-OP-B Current Condition Start: 01/31/21 17:56 Freq: Status: Active Protocol: Document 02/04/21 08:18 LRN (Rec: 02/04/21 09:07 LRN [id number]) Current Condition History of Current Condition Onset Date November 2019 Current Complaints Having to use walker to walk. 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 In hospital 3-4 days, transferred to [facility] [place] [facility] and found PT to not be helpful, then home health care after 14 days of quarrentine after catching COVID. Had home health PT for 3 months. Now seeking outpatient PT independently. States she needs help walking without a walker. Have fallen a few times immediately after returning home, due to weak L leg. Doesn't have feeling in feet and has sharp pains in feet; therefore on Gabapentin. Uses topical CBD cream that helps a little. During the day and while walking around, no pain. Pain in feet is mainly at night when trying to go to sleep, or sitting watching TV. Prior Treatments and Tests Few years ago had PT for neuropathy. Has treadmill at home that she uses sometimes. Treatment Goals Patient/Caregiver Goals Pt goal is to be able to walk without a walker using a cane, improve endurance and balance and pt agreeable to being placed on a HEP at discharge. 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 Had to sit on bench to rest. Baseline Function- Other Up/down steps using 2 railings . Current Functional Impairments (Reported) Functional Limitations- ADL's Ambs around home occasioinally without walker (kitchen to living room, living room to laudry room and bathrrom). Walks on deck with FWW. Functional Limitations- Mobility/Gait Ambulates with FWW independently. 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 Can go up/down steps using 2 railings. Personal Factors Other Personal Factors That May Effect Neuropathy of the feet. Therapy/Recovery PT-OP-C Subjective Start: 01/31/21 17:56 Freq: Status: Active Protocol: Document 04/23/21 14:21 LRN (Rec: 04/23/21 15:08 LRN [id number]) OP-PT Subjective Patient Comments Patient Comments Requests copy of Cordell ex's. Patient Reported Progress Improving PT-OP-D Balance Start: 01/31/21 17:56 Freq: Status: Active Protocol: Document 04/05/21 13:47 SP (Rec: 04/05/21 14:48 SP [id number]) Balance Tests Arrieta Balance Test Arrieta Balance Test Score 32 Arrieta Impairment Rating 40 to 59% Impaired (Score 23- 33) PT-OP-E Functional Tests Start: 01/31/21 17:56 Freq: Status: Active Protocol: Document 04/23/21 14:21 LRN (Rec: 04/23/21 15:08 LRN [id number]) Functional Tests Timed Up and Go (TUG) Score 32 secs Comments No Assist device TUG Impairment Rating 100% Impaired (Score 20) PT-OP-G Mobility & Gait Start: 01/31/21 17:56 Freq: Status: Active Protocol: Document 02/04/21 08:18 LRN (Rec: 02/04/21 09:07 LRN [id number]) OP Gait Assessment Gait Gait Assistance Required: Independent Distance (Feet) 100 Able to Maintain Weight Bearing Status Yes During Gait Assistive Devices Assistive Device Front Wheeled Walker Gait Deviations General Gait Pattern Decreased Stride Length,Flexed Trunk,Lateral Trunk Lean, Narrow Based Gait,Step-to Gait Factors Limiting Gait Function Factors Limiting Gait Function Decreased Activity Tolerance, Decreased Strength,Poor Balance PT-OP-J Posture/Palpation/Skin Start: 01/31/21 17:56 Freq: Status: Active Protocol: Document 02/04/21 08:18 LRN (Rec: 02/04/21 09:07 LRN [id number]) Posture Evaluation Position Standing Head/C-Spine Posture Forward Head T-Spine Posture Increased Kyphosis L-Spine Posture Flattened Shoulder Posture (L) Elevated Pelvis Posture Anteriorly Tilted,Posterior Tilted Weight Distribution Weight Shifted Right Knee Posture (L) Genu Valgus,(R) Genu Valgus Comments Posture Comments Foot deformity FB at hips ~35 deg's, L hip retracted. PT-OP-M Strength Start: 01/31/21 17:56 Freq: Status: Active Protocol: Document 02/04/21 08:18 LRN (Rec: 02/04/21 09:07 LRN [id number]) Hip Strength Hip Manual Muscle Testing Right Flexion (L2) 5 Normal Left Flexion (L2) 4 Good Knee Strength Knee Manual Muscle Testing Right Comments Generally 5/5 Left Comments Generally 5/5 Ankle/Foot Strength Ankle and Foot Manual Muscle Testing Right Comments Generally 5/5 Left Inversion 3 Fair Comments L foot deformity limiting IV mobility. PT-OP-Q Treatments Start: 01/31/21 17:56 Freq: Status: Active Protocol: Document 04/23/21 14:21 LRN (Rec: 04/23/21 15:08 LRN [id number]) Therapeutic Exercises Sitting Exercises Sit to stands Sitting Exercise Name Sit to stand Reps/Minutes 10x 2 Comments 10x slow & accurate, 10x fast without plopping L ankle DF Sitting Exercise Name L ankle DF Side bilateral Equipment Used Lev 1 TB Reps/Minutes 30x Comments Extra time for pt to learn self care HEP BKFO Sitting Exercise Name BKFO Side bilateral Equipment Used Lev 2 TB Reps/Minutes 10x 3, 10x with 10 hold Comments Extra time for pt to learn self care HEP L ankle ROM/ TB Sitting Exercise Name Ankle EV/IV strengthening Side bilateral Resistance Double strand Lev 1 TB Reps/Minutes 30x each Comments Extra time for pt to learn self care HEP Gait Training Gait Activity Gait w/o AD Description Gait Device Used None Level of Assistance CGA Surface Level Distance/Duration 13' Treatment Focus Good wgt shift, even step lengths, a few episodes of LOB , regained Comments Pt demonstrated good weight shift with wide PAULO of feet. TUG 32 secs Self-Care/Home Management Treatment Education Patient Education Home Exercise Program Activities Self-Care/Home Management Activities Issued & reviewed (with ex) HEP: TBand Ankle ex (DF, IV, EV) and sitting BKFO. PT-OP-T Assessment and Plan Start: 01/31/21 17:56 Freq: Status: Active Protocol: Document 04/23/21 14:21 LRN (Rec: 04/23/21 15:08 LRN [id number]) Physical Therapy Assessment Goals Four Impairment Decreased endurance (30 sec sit to stand - 9 reps; 5TSTS = 15.7 secs) Short Term Goal (STG) Improve 5TSTS TO 12.6 secs ( Norm for 80-89 yo is 14.8 sec' s) 02/21/21: progressin reps in 16 sec. 03/08/21: 5 reps 19 sec ( moderate retro lean x1 self recovery quick sit into chair no UE support). (03/11/21: 17 secs with good control w/o use of hands) 04/02/21: 15.15 sec 04/09/21: 13 sec. STG Duration 03/08/21 (04/09/21: progressing ) Desilverizer Goal (LTG) Improve 30 sit to stand to 10- 15 reps (norm for ages 75-79 is 10-15 reps) 02/21/21: progressin.5 reps in 30 sec. 03/01/21: progressing 10 reps in 30 sec today. 03/08/21: 12 reps in 30 sec no UE support- 1 retro lean quick descent self recovery. 04/02/21: 12 reps arms across chest, stable. LTG Duration 05/05/21 (03/08/21: MET GOAL) Three Impairment Decreased Balance per ARRIETA score of 18 (60<80% impaired) Short Term Goal (STG) Improve standing reach (5 or more safely), and ability to stand and look behind without loss of balance. 03/08/21: porgressing: able to reach 5 outside PAULO without LOB. 04/02/21: 7 outside PAULO forward STG Duration 03/22/21 (03/08/21: GOAL MET) Usp Goal (LTG) ARRIETA balance score of 34-44 ( 20<40% impaired) 03/08/21: 23/56- still high risk for falls. 04/05/21: 32/56- 40-59% impaired, moderate risk for falls LTG Duration 05/05/21 (04/05/21: Progressing) Two Impairment Decreased gait with need of FWW for safety (Tinetti 13 = high fall risk) Short Term Goal (STG) Overall Tinetti score 23-27 (1 <20% impaired) or score 19-24 (medium fall risk, <14 high fall) risk). 02/21/21: progressing , high risk for falls. 03/08/21: 09/17, high risk for falls. 03/11/21: Tinetti score is 18 (20<40% impaired) high risk for falls. 04/02/21: Moderate risk for falls (1-20% impaired). STG Duration 03/22/21 (04/02/21: Progressing ) Desilverizer Goal (LTG) Pt will be able to walk without a cane safely 100' or more. 03/08/21: progressing: gait 152 ft using QC required stand rest for recovery 10-15 sec, provided SBA w/ gait belt for safety. 04/02/21: Completed 6MWT in 152ft requiring 3 x3 sec brief stop stand rests for recovery . 04/09/21: completed 6MWT in 192 .5 ft w/ QC with improved more fluid 3 pt patterning. 04/16/21: Gait 150' w QC, 1 standing rest with 4 episodes of increased sway and pt able to maintain balance x 3. LTG Duration 05/05/21 (04/16/21: Progressing) One Impairment Lacks appropriate HEP. Short Term Goal (STG) Improve ABC score 41-60 (40<60 % impaired). Eval score is 10 .62. 02/26/21: 31% 03/08/21: 71.875 % 04/16/21: 43% of self confidence STG Duration 03/22/21 (04/16/21: MET GOAL) Desilverizer Goal (LTG) Pt will be independent with a self care HEP to promote improving LE strength and balance. 03/05/21 HEP: ankle PF&EV TB, LAQ TB , posture scap squeeze w/ shld ER TB, heel toe walking, self STMs to calf/ quad/HS, eccentric HS curl TB, coordination foot ruano/ ankle IV/EV side taps/. LTG Duration 05/05/21 (03/05/21: Progressed) Progress Towards Goals Progress Comments Pt able to walk independent of assistive device with good balance but slow gait. Assessment Summary Assessment Pt able to walk without an assistive device with slow but stable gait. She had a couple episodes of loss of balance that she was able to regain independently. Pt needed review of ankle strengthening to do properly. TUG score of 32 secs indicate pt is 100% impaired, although pt walked and extra 10' and wasn't sure whether to return to sit. Slight plop on sitting. Physical Therapy Plan Frequency and Duration Frequency of Treatment 2x/Week Plan of Care Start Date 04/16/21 Plan of Care End Date 07/15/21 Next Visit Focus/Plan Next Note Type Treatment Note Next Visit Plan Cont Sit to stand to improve speed and control. Progress Gait training to w/o QC (100+ feet goal) and goal to improve endurance (Check TUG with QC) . Add scissored stance for balance with LLE posterior to RLE, and standing balance activities. PT POC: Continue focus on improving balance and safety with gait and endurance of sit to stand speed with controlled descent w/out UE support, aerobic tolerance/ strength and gait with QC, balance training in mirror, postural training, LLE (ankles , hips & ecc knee) strengthening, (monitor IV/EV strengthening) movements, and progression in HEP.
--- NOTE | 2021-04-26 16:41 | PT.OTN ---
Current Diagnoses Muscle weakness (generalized) (04/26/21) Difficulty in walking, not elsewhere classified (04/26/21) Abnormal posture (04/26/21) Other symptoms and signs involving the nervous system (04/26/21) Physical Therapy Treatment Note PT-OP-A Visit Information Start: 01/31/21 17:56 Freq: Status: Active Protocol: Document 04/26/21 14:19 LRN (Rec: 04/26/21 15:04 LRN [id number]) Out-Patient Physical Therapy Visit Information Visit Information Visit Type Treatment Note Visit Note 3 after PN Visit Start Time 14:19 Visit Stop Time 15:00 Total Visit Minutes 41 Visit Number 23 Evaluation Information Evaluation Date 02/04/21 Precautions Precautions 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 PT-OP-B Current Condition Start: 01/31/21 17:56 Freq: Status: Active Protocol: Document 02/04/21 08:18 LRN (Rec: 02/04/21 09:07 LRN [id number]) Current Condition History of Current Condition Onset Date November 2019 Current Complaints Having to use walker to walk. 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 In hospital 3-4 days, transferred to [facility] in [place] (half-way) and found PT to not be helpful, then home health care after 14 days of quarrentine after catching COVID. Had home health PT for 3 months. Now seeking outpatient PT independently. States she needs help walking without a walker. Have fallen a few times immediately after returning home, due to weak L leg. Doesn't have feeling in feet and has sharp pains in feet; therefore on Gabapentin. Uses topical CBD cream that helps a little. During the day and while walking around, no pain. Pain in feet is mainly at night when trying to go to sleep, or sitting watching TV. Prior Treatments and Tests Few years ago had PT for neuropathy. Has treadmill at home that she uses sometimes. Treatment Goals Patient/Caregiver Goals Pt goal is to be able to walk without a walker using a cane, improve endurance and balance and pt agreeable to being placed on a HEP at discharge. 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 Had to sit on bench to rest. Baseline Function- Other Up/down steps using 2 railings . Current Functional Impairments (Reported) Functional Limitations- ADL's Ambs around home occasioinally without walker (kitchen to living room, living room to laudry room and bathrrom). Walks on deck with FWW. Functional Limitations- Mobility/Gait Ambulates with FWW independently. 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 Can go up/down steps using 2 railings. Personal Factors Other Personal Factors That May Effect Neuropathy of the feet. Therapy/Recovery PT-OP-C Subjective Start: 01/31/21 17:56 Freq: Status: Active Protocol: Document 04/26/21 14:19 LRN (Rec: 04/26/21 15:04 LRN [id number]) OP-PT Subjective Patient Comments Patient Comments States she is doing her home ex's. PT-OP-D Balance Start: 01/31/21 17:56 Freq: Status: Active Protocol: Document 04/05/21 13:47 SP (Rec: 04/05/21 14:48 SP [id number]) Balance Tests Arrieta Balance Test Arrieta Balance Test Score 32 Arrieta Impairment Rating 40 to 59% Impaired (Score 23- 33) PT-OP-E Functional Tests Start: 01/31/21 17:56 Freq: Status: Active Protocol: Document 04/26/21 14:19 LRN (Rec: 04/26/21 15:04 LRN [id number]) Functional Tests Timed Up and Go (TUG) Score 65 secs Comments QC (42 secs without AD) TUG Impairment Rating 100% Impaired (Score 20) Tinetti Balance and Gait Assessment Balance Score 11 Balance Score Impairment Rating 20 to <40% Impaired (Score 10- 12) PT-OP-G Mobility & Gait Start: 01/31/21 17:56 Freq: Status: Active Protocol: Document 02/04/21 08:18 LRN (Rec: 02/04/21 09:07 LRN [id number]) OP Gait Assessment Gait Gait Assistance Required: Independent Distance (Feet) 100 Able to Maintain Weight Bearing Status Yes During Gait Assistive Devices Assistive Device Front Wheeled Walker Gait Deviations General Gait Pattern Decreased Stride Length,Flexed Trunk,Lateral Trunk Lean, Narrow Based Gait,Step-to Gait Factors Limiting Gait Function Factors Limiting Gait Function Decreased Activity Tolerance, Decreased Strength,Poor Balance PT-OP-J Posture/Palpation/Skin Start: 01/31/21 17:56 Freq: Status: Active Protocol: Document 02/04/21 08:18 LRN (Rec: 02/04/21 09:07 LRN [id number]) Posture Evaluation Position Standing Head/C-Spine Posture Forward Head T-Spine Posture Increased Kyphosis L-Spine Posture Flattened Shoulder Posture (L) Elevated Pelvis Posture Anteriorly Tilted,Posterior Tilted Weight Distribution Weight Shifted Right Knee Posture (L) Genu Valgus,(R) Genu Valgus Comments Posture Comments Foot deformity FB at hips ~35 deg's, L hip retracted. PT-OP-M Strength Start: 01/31/21 17:56 Freq: Status: Active Protocol: Document 02/04/21 08:18 LRN (Rec: 02/04/21 09:07 LRN [id number]) Hip Strength Hip Manual Muscle Testing Right Flexion (L2) 5 Normal Left Flexion (L2) 4 Good Knee Strength Knee Manual Muscle Testing Right Comments Generally 5/5 Left Comments Generally 5/5 Ankle/Foot Strength Ankle and Foot Manual Muscle Testing Right Comments Generally 5/5 Left Inversion 3 Fair Comments L foot deformity limiting IV mobility. PT-OP-Q Treatments Start: 01/31/21 17:56 Freq: Status: Active Protocol: Document 04/26/21 14:19 LRN (Rec: 04/26/21 15:04 LRN [id number]) Therapeutic Exercises Sitting Exercises Sit to stands Sitting Exercise Name Sit to stand Reps/Minutes 10x 2 Comments 10x slow & accurate - 51, 10x fast without plopping - 37.31 Gait Training Gait Activity Gait w/o AD Description Gait Device Used None Level of Assistance CGA Surface Level Distance/Duration 120 ft, 10' x 6 Treatment Focus Good wgt shift, even step lengths, a few episodes of LOB , regained Comments Pt demonstrated good weight shift with wide PAULO of feet to start, started to drag L foot mildly after ~80 ft. LOB on sitting at end of walk. Pt fatigued and ended moderately hard, long rest needed with water given. Pt felt mask is hindering her ability to breath. Pt needed cuing when turning to step more with L foot. Pt needed sitting rests and water drink after 10'x 2 walks . Neuro Re-Education Treatment Balance Activities Nudge training Details Nudge PA, AP, Side, rotation Surface Sitting and standing Equipment GB Reps/Duration 12' Comments Training for pt to react to nudge force by bracing self. Pt had greater understanding of self bracing, but was unable to do in standing. She was able to demonstrate it in sitting except for when a posterior, RSB or Rrot force was applied. Turning Details turns during gait testing Surface firm Equipment GB with CGA with QC and without AD Reps/Duration 4x Comments cued small marching steps Transfer stability sit<>stand Details Sit<>Stand with stability gained after movement Surface Level Equipment GB/No use of UE's Reps/Duration 5' Comments Occasional LOB with sitting because pt turned to look at chair. Cuing and training to feel chair behind thighs before sitting to avoid having to rotate to look back. Standing EO, EC Details Standing balance Surface Level Equipment GB Reps/Duration 2' PT-OP-T Assessment and Plan Start: 01/31/21 17:56 Freq: Status: Active Protocol: Document 04/26/21 14:19 LRN (Rec: 04/26/21 15:04 LRN [id number]) Physical Therapy Assessment Goals Four Impairment Decreased endurance (30 sec sit to stand - 9 reps; 5TSTS = 15.7 secs) Short Term Goal (STG) Improve 5TSTS TO 12.6 secs ( Norm for 80-89 yo is 14.8 sec' s) 02/21/21: progressin reps in 16 sec. 03/08/21: 5 reps 19 sec ( moderate retro lean x1 self recovery quick sit into chair no UE support). (03/11/21: 17 secs with good control w/o use of hands) 04/02/21: 15.15 sec 04/09/21: 13 sec. STG Duration 03/08/21 (04/09/21: progressing ) Deputy Commissioner Goal (LTG) Improve 30 sit to stand to 10- 15 reps (norm for ages 75-79 is 10-15 reps) 02/21/21: progressin.5 reps in 30 sec. 03/01/21: progressing 10 reps in 30 sec today. 03/08/21: 12 reps in 30 sec no UE support- 1 retro lean quick descent self recovery. 04/02/21: 12 reps arms across chest, stable. LTG Duration 05/05/21 (03/08/21: MET GOAL) Three Impairment Decreased Balance per ARRIETA score of 18 (60<80% impaired) Short Term Goal (STG) Improve standing reach (5 or more safely), and ability to stand and look behind without loss of balance. 03/08/21: porgressing: able to reach 5 outside PAULO without LOB. 04/02/21: 7 outside PAULO forward STG Duration 03/22/21 (03/08/21: GOAL MET) Jail Goal (LTG) ARRIETA balance score of 34-44 ( 20<40% impaired) 03/08/21: 23/56- still high risk for falls. 04/05/21: /56- 40-59% impaired, moderate risk for falls LTG Duration 05/05/21 (04/05/21: Progressing) Two Impairment Decreased gait with need of FWW for safety (Tinetti 13 = high fall risk) Short Term Goal (STG) Overall Tinetti score 23-27 (1 <20% impaired) or score 19-24 (medium fall risk, <14 high fall) risk). 02/21/21: progressing , high risk for falls. 03/08/21: 09/17, high risk for falls. 03/11/21: Tinetti score is 18 (20<40% impaired) high risk for falls. 04/02/21: Moderate risk for falls (1-20% impaired). 04/26/21: Tinetti Balance score = 11 (Initial was 6, on was 10) STG Duration 03/22/21 (04/26/21: Tinetti Balance Improved ) Deputy Commissioner Goal (LTG) Pt will be able to walk without a cane safely 100' or more. 03/08/21: progressing: gait 152 ft using QC required stand rest for recovery 10-15 sec, provided SBA w/ gait belt for safety. 04/02/21: Completed 6MWT in 152ft requiring 3 x3 sec brief stop stand rests for recovery . 04/09/21: completed 6MWT in 192 .5 ft w/ QC with improved more fluid 3 pt patterning. 04/16/21: Gait 150' w QC, 1 standing rest with 4 episodes of increased sway and pt able to maintain balance x 3. LTG Duration 05/05/21 (04/16/21: Progressing) One Impairment Lacks appropriate HEP. Short Term Goal (STG) Improve ABC score 41-60 (40<60 % impaired). Eval score is 10 .62. 02/26/21: 31% 03/08/21: 71.875 % 04/16/21: 43% of self confidence STG Duration 03/22/21 (04/16/21: MET GOAL) Jail Goal (LTG) Pt will be independent with a self care HEP to promote improving LE strength and balance. 03/05/21 HEP: ankle PF&EV TB, LAQ TB , posture scap squeeze w/ shld ER TB, heel toe walking, self STMs to calf/ quad/HS, eccentric HS curl TB, coordination foot ruano/ ankle IV/EV side taps/. LTG Duration 05/05/21 (03/05/21: Progressed) Progress Towards Goals Progress Comments Tinetti Balance Score improved , today - 11 (Initial was 6, on 02/21/21 was 10) Assessment Summary Assessment Pt able to walk 100+feet without assistive device with intensity tolerance of moderately hard. Pt was visibly fatigued with increased breathing and LOB on sitting. Pt is able to walk with greater speed without use of assistive device. TUG of 65 secs with Quad Cane and 42 secs without assistive device . Pt has trunk weakness of flex/ext, R SB & R rotation. She has poor bracing reflex when nudged in all direction, but worse in areas of trunk weakness. Physical Therapy Plan Frequency and Duration Frequency of Treatment 2x/Week Plan of Care Start Date 04/16/21 Plan of Care End Date 07/15/21 Next Visit Focus/Plan Next Note Type Treatment Note Next Visit Plan Add trunk strengthening (R SB, R rot, and trunk flex/ext). Assess Tinetti Gait. Cont Sit to stand to improve speed and control (Check 5TSTS test). Progress Gait training to w/o QC (100+ feet goal) and goal to improve endurance (Check TUG with QC). Add scissored stance for balance with LLE posterior to RLE, and standing balance activities. PT POC: Continue focus on improving balance and safety with gait and endurance of sit to stand speed with controlled descent w/out UE support, aerobic tolerance/ strength and gait with QC, balance training in mirror, postural training, LLE (ankles , hips & ecc knee) strengthening, (monitor IV/EV strengthening) movements, and progression in HEP.
--- NOTE | 2021-04-29 14:30 | PT.OTN ---
Current Diagnoses Muscle weakness (generalized) (04/29/21) Difficulty in walking, not elsewhere classified (04/29/21) Abnormal posture (04/29/21) Other symptoms and signs involving the nervous system (04/29/21) Physical Therapy Treatment Note PT-OP-A Visit Information Start: 01/31/21 17:56 Freq: Status: Active Protocol: Document 04/29/21 13:48 SP (Rec: 04/29/21 14:34 SP [id number]) Out-Patient Physical Therapy Visit Information Visit Information Visit Type Treatment Note Visit Note 4 after PN Visit Start Time 13:48 Visit Stop Time 14:30 Total Visit Minutes 42 Visit Number 24 Number of MANDARIN SPEAKING NANNY Visits 1 Evaluation Information Evaluation Date 02/04/21 Precautions Precautions 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 PT-OP-B Current Condition Start: 01/31/21 17:56 Freq: Status: Active Protocol: Document 02/04/21 08:18 LRN (Rec: 02/04/21 09:07 LRN [id number]) Current Condition History of Current Condition Onset Date November 2019 Current Complaints Having to use walker to walk. 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 In hospital 3-4 days, transferred to [facility] in [place] (group home) and found PT to not be helpful, then home health care after 14 days of quarrentine after catching COVID. Had home health PT for 3 months. Now seeking outpatient PT independently. States she needs help walking without a walker. Have fallen a few times immediately after returning home, due to weak L leg. Doesn't have feeling in feet and has sharp pains in feet; therefore on Gabapentin. Uses topical CBD cream that helps a little. During the day and while walking around, no pain. Pain in feet is mainly at night when trying to go to sleep, or sitting watching TV. Prior Treatments and Tests Few years ago had PT for neuropathy. Has treadmill at home that she uses sometimes. Treatment Goals Patient/Caregiver Goals Pt goal is to be able to walk without a walker using a cane, improve endurance and balance and pt agreeable to being placed on a HEP at discharge. 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 Had to sit on bench to rest. Baseline Function- Other Up/down steps using 2 railings . Current Functional Impairments (Reported) Functional Limitations- ADL's Ambs around home occasioinally without walker (kitchen to living room, living room to laudry room and bathrrom). Walks on deck with FWW. Functional Limitations- Mobility/Gait Ambulates with FWW independently. 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 Can go up/down steps using 2 railings. Personal Factors Other Personal Factors That May Effect Neuropathy of the feet. Therapy/Recovery PT-OP-C Subjective Start: 01/31/21 17:56 Freq: Status: Active Protocol: Document 04/29/21 13:48 SP (Rec: 04/29/21 14:34 SP [id number]) OP-PT Subjective Patient Comments Patient Comments Pt states she places her FWW out in front and walks short tents without anything and feeling better, little more confident. Patient Reported Progress Improving PT-OP-D Balance Start: 01/31/21 17:56 Freq: Status: Active Protocol: Document 04/05/21 13:47 SP (Rec: 04/05/21 14:48 SP [id number]) Balance Tests Arrieta Balance Test Arrieta Balance Test Score 32 Arrieta Impairment Rating 40 to 59% Impaired (Score 23- 33) PT-OP-E Functional Tests Start: 01/31/21 17:56 Freq: Status: Active Protocol: Document 04/26/21 14:19 LRN (Rec: 04/26/21 15:04 LRN [id number]) Functional Tests Timed Up and Go (TUG) Score 65 secs Comments QC (42 secs without AD) TUG Impairment Rating 100% Impaired (Score 20) Tinetti Balance and Gait Assessment Balance Score 11 Balance Score Impairment Rating 20 to <40% Impaired (Score 10- 12) PT-OP-G Mobility & Gait Start: 01/31/21 17:56 Freq: Status: Active Protocol: Document 02/04/21 08:18 LRN (Rec: 02/04/21 09:07 LRN [id number]) OP Gait Assessment Gait Gait Assistance Required: Independent Distance (Feet) 100 Able to Maintain Weight Bearing Status Yes During Gait Assistive Devices Assistive Device Front Wheeled Walker Gait Deviations General Gait Pattern Decreased Stride Length,Flexed Trunk,Lateral Trunk Lean, Narrow Based Gait,Step-to Gait Factors Limiting Gait Function Factors Limiting Gait Function Decreased Activity Tolerance, Decreased Strength,Poor Balance PT-OP-J Posture/Palpation/Skin Start: 01/31/21 17:56 Freq: Status: Active Protocol: Document 02/04/21 08:18 LRN (Rec: 02/04/21 09:07 LRN [id number]) Posture Evaluation Position Standing Head/C-Spine Posture Forward Head T-Spine Posture Increased Kyphosis L-Spine Posture Flattened Shoulder Posture (L) Elevated Pelvis Posture Anteriorly Tilted,Posterior Tilted Weight Distribution Weight Shifted Right Knee Posture (L) Genu Valgus,(R) Genu Valgus Comments Posture Comments Foot deformity FB at hips ~35 deg's, L hip retracted. PT-OP-M Strength Start: 01/31/21 17:56 Freq: Status: Active Protocol: Document 02/04/21 08:18 LRN (Rec: 02/04/21 09:07 LRN [id number]) Hip Strength Hip Manual Muscle Testing Right Flexion (L2) 5 Normal Left Flexion (L2) 4 Good Knee Strength Knee Manual Muscle Testing Right Comments Generally 5/5 Left Comments Generally 5/5 Ankle/Foot Strength Ankle and Foot Manual Muscle Testing Right Comments Generally 5/5 Left Inversion 3 Fair Comments L foot deformity limiting IV mobility. PT-OP-Q Treatments Start: 01/31/21 17:56 Freq: Status: Active Protocol: Document 04/29/21 13:48 SP (Rec: 04/29/21 14:34 SP [id number]) Therapeutic Exercises Sitting Exercises Sit to stands Sitting Exercise Name Sit to stand Equipment Used 5 reps STS 16 sec, 9.5 reps in 30 sec Comments good slow descent, SBA w/ UE Gait Training Gait Activity Gait w/o AD Description Gait Device Used None Level of Assistance CGA Surface Level Distance/Duration 75 ft, 54 ft, 22 ft CGA in hallway with 10-20 sec stand rest Treatment Focus Good wgt shift, even step lengths, a few episodes of LOB , regained Comments Pt demonstrated good weight shift with wide PAULO of feet to start, started to drag L foot mildly after ~80 ft. LOB self recovery on sitting at end of walk. Pt fatigued and ended moderately hard, long rest needed with water given. Pt felt mask is hindering her ability to breath. Pt needed cuing when turning to step more with L foot. Cued longer stride L, shorter stride RLE to =, improved stability Neuro Re-Education Treatment Balance Activities squat cone activitiy Details cross body squat reach golf ball off cones, apple picking supervisor cones Surface firm Equipment in//bars Reps/Duration 10 ft x1.5 laps Comments contact x2 and CGA, 10% A x2 instances to assist recovery retro lean. Nudge training Details Nudge PA, AP, Side, rotation Surface Sitting and standing Equipment GB Reps/Duration 12' Comments Training for pt to react to nudge force by bracing self. Pt had greater understanding of self bracing, but was unable to do in standing. She was able to demonstrate it in sitting except for when a posterior, RSB or Rrot force was applied. Transfer stability sit<>stand Details Sit<>Stand with stability gained after movement Surface Level Equipment GB/No use of UE's or AD Reps/Duration 20 ft x4 laps Comments cued for walk all way to front chair then pivot and back up, feel chair behind B knees then hip hinge with good slow descent to chair w/out arms. PT-OP-T Assessment and Plan Start: 01/31/21 17:56 Freq: Status: Active Protocol: Document 04/29/21 13:48 SP (Rec: 04/29/21 14:34 SP [id number]) Physical Therapy Assessment Goals Four Impairment Decreased endurance (30 sec sit to stand - 9 reps; 5TSTS = 15.7 secs) Short Term Goal (STG) Improve 5TSTS TO 12.6 secs ( Norm for 80-89 yo is 14.8 sec' s) 02/21/21: progressin reps in 16 sec. 03/08/21: 5 reps 19 sec ( moderate retro lean x1 self recovery quick sit into chair no UE support). (03/11/21: 17 secs with good control w/o use of hands) 04/02/21: 15.15 sec 04/09/21: 13 sec. STG Duration 03/08/21 (04/09/21: progressing ) Clinical Business Manager Goal (LTG) Improve 30 sit to stand to 10- 15 reps (norm for ages 75-79 is 10-15 reps) 02/21/21: progressin.5 reps in 30 sec. 03/01/21: progressing 10 reps in 30 sec today. 03/08/21: 12 reps in 30 sec no UE support- 1 retro lean quick descent self recovery. 04/02/21: 12 reps arms across chest, stable. LTG Duration 05/05/21 (03/08/21: MET GOAL) Three Impairment Decreased Balance per ARRIETA score of 18 (60<80% impaired) Short Term Goal (STG) Improve standing reach (5 or more safely), and ability to stand and look behind without loss of balance. 03/08/21: porgressing: able to reach 5 outside PAULO without LOB. 04/02/21: 7 outside PAULO forward STG Duration 03/22/21 (03/08/21: GOAL MET) Alf Goal (LTG) ARRIETA balance score of 34-44 ( 20<40% impaired) 03/08/21: - still high risk for falls. 04/05/21: /- 40-59% impaired, moderate risk for falls LTG Duration 05/05/21 (04/05/21: Progressing) Two Impairment Decreased gait with need of FWW for safety (Tinetti 13 = high fall risk) Short Term Goal (STG) Overall Tinetti score 23-27 (1 <20% impaired) or score 19-24 (medium fall risk, <14 high fall) risk). 02/21/21: progressing , high risk for falls. 03/08/21: 09/17, high risk for falls. 03/11/21: Tinetti score is 18 (20<40% impaired) high risk for falls. 04/02/21: Moderate risk for falls (1-20% impaired). 04/26/21: Tinetti Balance score = 11 (Initial was 6, on was 10) STG Duration 03/22/21 (04/26/21: Tinetti Balance Improved ) Clinical Business Manager Goal (LTG) Pt will be able to walk without a cane safely 100' or more. 03/08/21: progressing: gait 152 ft using QC required stand rest for recovery 10-15 sec, provided SBA w/ gait belt for safety. 04/02/21: Completed 6MWT in 152ft requiring 3 x3 sec brief stop stand rests for recovery . 04/09/21: completed 6MWT in 192 .5 ft w/ QC with improved more fluid 3 pt patterning. 04/16/21: Gait 150' w QC, 1 standing rest with 4 episodes of increased sway and pt able to maintain balance x 3. LTG Duration 05/05/21 (04/16/21: Progressing) One Impairment Lacks appropriate HEP. Short Term Goal (STG) Improve ABC score 41-60 (40<60 % impaired). Eval score is 10 .62. 02/26/21: 31% 03/08/21: 71.875 % 04/16/21: 43% of self confidence STG Duration 03/22/21 (04/16/21: MET GOAL) Alf Goal (LTG) Pt will be independent with a self care HEP to promote improving LE strength and balance. 03/05/21 HEP: ankle PF&EV TB, LAQ TB , posture scap squeeze w/ shld ER TB, heel toe walking, self STMs to calf/ quad/HS, eccentric HS curl TB, coordination foot ruano/ ankle IV/EV side taps/. LTG Duration 05/05/21 (03/05/21: Progressed) Assessment Summary Assessment Pt worked hard with focus on gait without AD, increase stride and foot clearance of LLE and balance COG over PAULO during wt shift off wall and squat to reach OOBOS cones on floor with CGA. Pt improved longer distance gait without AD. Physical Therapy Plan Frequency and Duration Frequency of Treatment 2x/Week Plan of Care Start Date 04/16/21 Plan of Care End Date 07/15/21 Therapeutic Interventions Therapeutic Interventions Balance Training,Coordination Training,Gait Training,Home Exercise Program,Manual Therapy,Neuromuscular Re- education,Patient/Caregiver Education,Self-Care/Home Management,Therapeutic Activities,Therapeutic Exercises Modalities Cold Pack/Ice Massage,Hot Packs Next Visit Focus/Plan Next Note Type Treatment Note Next Visit Plan Next tx: Add trunk strengthening (R SB, R rot, and trunk flex/ext). Assess Tinetti Gait. Cont Sit to stand to improve speed and control (Check 5TSTS test). Progress Gait training to w/o QC (100+ feet goal) and goal to improve endurance (Check TUG with QC). Add scissored stance for balance with LLE posterior to RLE, and standing balance activities. PT POC: Continue focus on improving balance and safety with gait and endurance of sit to stand speed with controlled descent w/out UE support, aerobic tolerance/ strength and gait with QC, balance training in mirror, postural training, LLE (ankles , hips & ecc knee) strengthening, (monitor IV/EV strengthening) movements, and progression in HEP.
--- NOTE | 2021-05-06 14:30 | PT.OTN ---
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 PT-OP-B Current Condition Start: 01/31/21 17:56 Freq: Status: Active Protocol: Document 02/04/21 08:18 LRN (Rec: 02/04/21 09:07 LRN [id number]) Current Condition History of Current Condition Onset Date November 2019 Current Complaints Having to use walker to walk. 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 In hospital 3-4 days, transferred to [facility] in [place] (penitentiary) and found PT to not be helpful, then home health care after 14 days of quarrentine after catching COVID. Had home health PT for 3 months. Now seeking outpatient PT independently. States she needs help walking without a walker. Have fallen a few times immediately after returning home, due to weak L leg. Doesn't have feeling in feet and has sharp pains in feet; therefore on Gabapentin. Uses topical CBD cream that helps a little. During the day and while walking around, no pain. Pain in feet is mainly at night when trying to go to sleep, or sitting watching TV. Prior Treatments and Tests Few years ago had PT for neuropathy. Has treadmill at home that she uses sometimes. Treatment Goals Patient/Caregiver Goals Pt goal is to be able to walk without a walker using a cane, improve endurance and balance and pt agreeable to being placed on a HEP at discharge. 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 Had to sit on bench to rest. Baseline Function- Other Up/down steps using 2 railings . Current Functional Impairments (Reported) Functional Limitations- ADL's Ambs around home occasioinally without walker (kitchen to living room, living room to laudry room and bathrrom). Walks on deck with FWW. Functional Limitations- Mobility/Gait Ambulates with FWW independently. 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 Can go up/down steps using 2 railings. Personal Factors Other Personal Factors That May Effect Neuropathy of the feet. Therapy/Recovery PT-OP-C Subjective Start: 01/31/21 17:56 Freq: Status: Active Protocol: Document 05/06/21 13:50 SP (Rec: 05/06/21 15:54 SP [id number]) OP-PT Subjective Patient Comments Patient Comments Pt stated has been walking on deck without AD and has been contacting her gait belt for safety. Patient Reported Progress Improving PT-OP-D Balance Start: 01/31/21 17:56 Freq: Status: Active Protocol: Document 04/05/21 13:47 SP (Rec: 04/05/21 14:48 SP [id number]) Balance Tests Arrieta Balance Test Arrieta Balance Test Score 32 Arrieta Impairment Rating 40 to 59% Impaired (Score 23- 33) PT-OP-E Functional Tests Start: 01/31/21 17:56 Freq: Status: Active Protocol: Document 04/26/21 14:19 LRN (Rec: 04/26/21 15:04 LRN [id number]) Functional Tests Timed Up and Go (TUG) Score 65 secs Comments QC (42 secs without AD) TUG Impairment Rating 100% Impaired (Score 20) Tinetti Balance and Gait Assessment Balance Score 11 Balance Score Impairment Rating 20 to <40% Impaired (Score 10- 12) PT-OP-G Mobility & Gait Start: 01/31/21 17:56 Freq: Status: Active Protocol: Document 02/04/21 08:18 LRN (Rec: 02/04/21 09:07 LRN [id number]) OP Gait Assessment Gait Gait Assistance Required: Independent Distance (Feet) 100 Able to Maintain Weight Bearing Status Yes During Gait Assistive Devices Assistive Device Front Wheeled Walker Gait Deviations General Gait Pattern Decreased Stride Length,Flexed Trunk,Lateral Trunk Lean, Narrow Based Gait,Step-to Gait Factors Limiting Gait Function Factors Limiting Gait Function Decreased Activity Tolerance, Decreased Strength,Poor Balance PT-OP-J Posture/Palpation/Skin Start: 01/31/21 17:56 Freq: Status: Active Protocol: Document 02/04/21 08:18 LRN (Rec: 02/04/21 09:07 LRN [id number]) Posture Evaluation Position Standing Head/C-Spine Posture Forward Head T-Spine Posture Increased Kyphosis L-Spine Posture Flattened Shoulder Posture (L) Elevated Pelvis Posture Anteriorly Tilted,Posterior Tilted Weight Distribution Weight Shifted Right Knee Posture (L) Genu Valgus,(R) Genu Valgus Comments Posture Comments Foot deformity FB at hips ~35 deg's, L hip retracted. PT-OP-M Strength Start: 01/31/21 17:56 Freq: Status: Active Protocol: Document 02/04/21 08:18 LRN (Rec: 02/04/21 09:07 LRN [id number]) Hip Strength Hip Manual Muscle Testing Right Flexion (L2) 5 Normal Left Flexion (L2) 4 Good Knee Strength Knee Manual Muscle Testing Right Comments Generally 5/5 Left Comments Generally 5/5 Ankle/Foot Strength Ankle and Foot Manual Muscle Testing Right Comments Generally 5/5 Left Inversion 3 Fair Comments L foot deformity limiting IV mobility. PT-OP-Q Treatments Start: 01/31/21 17:56 Freq: Status: Active Protocol: Document 05/06/21 13:50 SP (Rec: 05/06/21 15:54 SP [id number]) Therapeutic Exercises Sitting Exercises Sit to stands Sitting Exercise Name Sit to stand Equipment Used 5 reps STS 16 sec, 9 reps in 30 sec Comments good slow descent, SBA w/ UE, 1 LOB retro into chair when comiing to stand Gait Training Gait Activity dynamic gait Description walking head turns, quick stop /start Device Used 0 Level of Assistance Min A Surface level Distance/Duration 40 ft x2 lengths Treatment Focus self recovery with balance Comments cued posture, stride, foot clearance for safey, pt tends to slow down/stop when turns head. Gait w/o AD Description Gait Device Used None Level of Assistance CGA Surface Level Distance/Duration 191ft in 3 min 35 sec= 0.89ft/ sec, Treatment Focus Good wgt shift, even step lengths, a few episodes of LOB , regained Comments Pt demonstrated good weight shift with wide PAULO of feet to start, started to drag L foot mildly 3/4 of the distance no LOB, required 2 stand rests with contact wall 10 sec at 104 ft and 3 sec at 167 ft. Pt fatigued and ended moderately hard, long rest needed. Pt felt mask just made her hot but not as troublesome this date. Pt needed cuing when turning to step more with L foot. Cued longer stride L, shorter stride RLE to =, improved stability stair mgt Description quad, hip abd facilitation and stability ascend/descend Device Used 2HR> 1 HR Level of Assistance CGA Distance/Duration 4 stairs: B HR x4 sets Treatment Focus improve quad/ hip abd fac and control Comments receiprocal gait B HR with ease full descend control, receiprocal gait with cuing for safety quad and HS facilitation to support descending w/slow eccentric step down Neuro Re-Education Treatment Balance Activities tandem stance balance Details tandem RLE post, modified stagger LLE post Surface //bars Comments RLE post: 12, 13 LLE posterior 7, 3, 7 Transfer stability sit<>stand Details Sit<>Stand with stability gained after movement Surface Level Equipment GB/No use of UE's or AD Reps/Duration 20 ft x4 laps Comments cued for walk all way to front chair then pivot and back up, feel chair behind B knees then hip hinge with good slow descent to chair w/out arms. Required 25% A> 15%A, 10%A> 5% A with max cues not retro lean backing up. Better turning to L than R. Self-Care/Home Management Treatment Education Patient Education Body Mechanics,Posture,Safety Other Education Initiated tandem stance balance end of tx for self recovery and awareness of COG over PAULO self corrections. Improved with cues for glut, core and tall posture. Only in PT at this time. Also initiated dynamic gait w/ head turns, quick stop/ start, Min A for safety. PT-OP-T Assessment and Plan Start: 01/31/21 17:56 Freq: Status: Active Protocol: Document 05/06/21 13:50 SP (Rec: 05/06/21 15:54 SP [id number]) Physical Therapy Assessment Goals Four Impairment Decreased endurance (30 sec sit to stand - 9 reps; 5TSTS = 15.7 secs) Short Term Goal (STG) Improve 5TSTS TO 12.6 secs ( Norm for 80-89 yo is 14.8 sec' s) 02/21/21: progressin reps in 16 sec. 03/08/21: 5 reps 19 sec ( moderate retro lean x1 self recovery quick sit into chair no UE support). (03/11/21: 17 secs with good control w/o use of hands) 04/02/21: 15.15 sec 04/09/21: 13 sec. 05/06/21: 16 sec STG Duration 03/08/21 (04/09/21: progressing ) Residential Goal (LTG) Improve 30 sit to stand to 10- 15 reps (norm for ages 75-79 is 10-15 reps) 02/21/21: progressin.5 reps in 30 sec. 03/01/21: progressing 10 reps in 30 sec today. 03/08/21: 12 reps in 30 sec no UE support- 1 retro lean quick descent self recovery. 04/02/21: 12 reps arms across chest, stable. LTG Duration 05/05/21 (03/08/21: MET GOAL) Three Impairment Decreased Balance per ARRIETA score of 18 (60<80% impaired) Short Term Goal (STG) Improve standing reach (5 or more safely), and ability to stand and look behind without loss of balance. 03/08/21: porgressing: able to reach 5 outside PAULO without LOB. 04/02/21: 7 outside PAULO forward STG Duration 03/22/21 (03/08/21: GOAL MET) Pin Puller Goal (LTG) ARRIETA balance score of 34-44 ( 20<40% impaired) 03/08/21: 23/56- still high risk for falls. 04/05/21: 32/56- 40-59% impaired, moderate risk for falls LTG Duration 05/05/21 (04/05/21: Progressing) Two Impairment Decreased gait with need of FWW for safety (Tinetti 13 = high fall risk) Short Term Goal (STG) Overall Tinetti score 23-27 (1 <20% impaired) or score 19-24 (medium fall risk, <14 high fall) risk). 02/21/21: progressing , high risk for falls. 03/08/21: 09/17, high risk for falls. 03/11/21: Tinetti score is 18 (20<40% impaired) high risk for falls. 04/02/21: Moderate risk for falls (1-20% impaired). 04/26/21: Tinetti Balance score = 11 (Initial was 6, on was 10) STG Duration 03/22/21 (04/26/21: Tinetti Balance Improved ) Residential Goal (LTG) Pt will be able to walk without a cane safely 100' or more. 03/08/21: progressing: gait 152 ft using QC required stand rest for recovery 10-15 sec, provided SBA w/ gait belt for safety. 04/02/21: Completed 6MWT in 152ft requiring 3 x3 sec brief stop stand rests for recovery . 04/09/21: completed 6MWT in 192 .5 ft w/ QC with improved more fluid 3 pt patterning. 04/16/21: Gait 150' w QC, 1 standing rest with 4 episodes of increased sway and pt able to maintain balance x 3. LTG Duration 05/05/21 (04/16/21: Progressing) One Impairment Lacks appropriate HEP. Short Term Goal (STG) Improve ABC score 41-60 (40<60 % impaired). Eval score is 10 .62. 02/26/21: 31% 03/08/21: 71.875 % 04/16/21: 43% of self confidence STG Duration 03/22/21 (04/16/21: MET GOAL) Pin Puller Goal (LTG) Pt will be independent with a self care HEP to promote improving LE strength and balance. 03/05/21 HEP: ankle PF&EV TB, LAQ TB , posture scap squeeze w/ shld ER TB, heel toe walking, self STMs to calf/ quad/HS, eccentric HS curl TB, coordination foot ruano/ ankle IV/EV side taps/. LTG Duration 05/05/21 (03/05/21: Progressed) Assessment Summary Assessment Tx focused on gait w/out AD endurance, pt able to walk 3/4 distance around gym lap before LLE decrease foot clearance. Only needed 2 stop rests: 10 sec, 3sec w/ contact wall for support due to tiring total 191 feet, CGA. Noted deviations with self recovery. Pt continues to be challenged with balance during pivot turn to sit requiring increase support for safety and cues for tall posture slow pacing turn/ backing up full until feel chair behind knees before hip hinge to sit. Improve with reps 25%>5%A. Physical Therapy Plan Frequency and Duration Frequency of Treatment 2x/Week Plan of Care Start Date 04/16/21 Plan of Care End Date 07/15/21 Therapeutic Interventions Therapeutic Interventions Balance Training,Coordination Training,Gait Training,Home Exercise Program,Manual Therapy,Neuromuscular Re- education,Patient/Caregiver Education,Self-Care/Home Management,Therapeutic Activities,Therapeutic Exercises Modalities Cold Pack/Ice Massage,Hot Packs Next Visit Focus/Plan Next Note Type Treatment Note Next Visit Plan Next tx: review tandem/scissor stance balance LLE posterior. Add trunk strengthening (R SB , R rot, and trunk flex/ext). Assess Tinetti Gait, TUG. POC: Cont Sit to stand to improve speed and control ( Check 5TSTS test). Progress Gait training to w/o QC (100+ feet goal) and goal to improve endurance (Check TUG with QC) . PT POC: Continue focus on improving balance and safety with gait and endurance of sit to stand speed with controlled descent w/out UE support, aerobic tolerance/ strength and gait with QC, balance training in mirror, postural training, LLE (ankles , hips & ecc knee) strengthening, (monitor IV/EV strengthening) movements, and progression in HEP.
--- NOTE | 2021-05-10 15:15 | PT.OTN ---
Current Diagnoses Muscle weakness (generalized) (05/10/21) Difficulty in walking, not elsewhere classified (05/10/21) Abnormal posture (05/10/21) Other symptoms and signs involving the nervous system (05/10/21) Physical Therapy Treatment Note PT-OP-A Visit Information Start: 01/31/21 17:56 Freq: Status: Active Protocol: Document 05/10/21 14:35 SP (Rec: 05/10/21 16:11 SP [id number]) Out-Patient Physical Therapy Visit Information Visit Information Visit Type Treatment Note Visit Note 6 after PN Visit Start Time 14:35 Visit Stop Time 15:15 Total Visit Minutes 40 Visit Number 26 [facility] Visits 3 Evaluation Information Evaluation Date 02/04/21 Precautions Precautions 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 PT-OP-B Current Condition Start: 01/31/21 17:56 Freq: Status: Active Protocol: Document 02/04/21 08:18 LRN (Rec: 02/04/21 09:07 LRN [id number]) Current Condition History of Current Condition Onset Date November 2019 Current Complaints Having to use walker to walk. 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 In hospital 3-4 days, transferred to [facility] in [place] (half-way) and found PT to not be helpful, then home health care after 14 days of quarrentine after catching COVID. Had home health PT for 3 months. Now seeking outpatient PT independently. States she needs help walking without a walker. Have fallen a few times immediately after returning home, due to weak L leg. Doesn't have feeling in feet and has sharp pains in feet; therefore on Gabapentin. Uses topical CBD cream that helps a little. During the day and while walking around, no pain. Pain in feet is mainly at night when trying to go to sleep, or sitting watching TV. Prior Treatments and Tests Few years ago had PT for neuropathy. Has treadmill at home that she uses sometimes. Treatment Goals Patient/Caregiver Goals Pt goal is to be able to walk without a walker using a cane, improve endurance and balance and pt agreeable to being placed on a HEP at discharge. 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 Had to sit on bench to rest. Baseline Function- Other Up/down steps using 2 railings . Current Functional Impairments (Reported) Functional Limitations- ADL's Ambs around home occasioinally without walker (kitchen to living room, living room to laudry room and bathrrom). Walks on deck with FWW. Functional Limitations- Mobility/Gait Ambulates with FWW independently. 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 Can go up/down steps using 2 railings. Personal Factors Other Personal Factors That May Effect Neuropathy of the feet. Therapy/Recovery PT-OP-C Subjective Start: 01/31/21 17:56 Freq: Status: Active Protocol: Document 05/10/21 14:35 SP (Rec: 05/10/21 16:11 SP [id number]) OP-PT Subjective Patient Comments Patient Comments Pt stated has been walking without AD short distance on deck with GB assist Patient Reported Progress Improving PT-OP-D Balance Start: 01/31/21 17:56 Freq: Status: Active Protocol: Document 04/05/21 13:47 SP (Rec: 04/05/21 14:48 SP [id number]) Balance Tests Arrieta Balance Test Arrieta Balance Test Score 32 Arreita Impairment Rating 40 to 59% Impaired (Score 23- 33) PT-OP-E Functional Tests Start: 01/31/21 17:56 Freq: Status: Active Protocol: Document 04/26/21 14:19 LRN (Rec: 04/26/21 15:04 LRN [id number]) Functional Tests Timed Up and Go (TUG) Score 65 secs Comments QC (42 secs without AD) TUG Impairment Rating 100% Impaired (Score 20) Tinetti Balance and Gait Assessment Balance Score 11 Balance Score Impairment Rating 20 to <40% Impaired (Score 10- 12) PT-OP-G Mobility & Gait Start: 01/31/21 17:56 Freq: Status: Active Protocol: Document 02/04/21 08:18 LRN (Rec: 02/04/21 09:07 LRN [id number]) OP Gait Assessment Gait Gait Assistance Required: Independent Distance (Feet) 100 Able to Maintain Weight Bearing Status Yes During Gait Assistive Devices Assistive Device Front Wheeled Walker Gait Deviations General Gait Pattern Decreased Stride Length,Flexed Trunk,Lateral Trunk Lean, Narrow Based Gait,Step-to Gait Factors Limiting Gait Function Factors Limiting Gait Function Decreased Activity Tolerance, Decreased Strength,Poor Balance PT-OP-J Posture/Palpation/Skin Start: 01/31/21 17:56 Freq: Status: Active Protocol: Document 02/04/21 08:18 LRN (Rec: 02/04/21 09:07 LRN [id number]) Posture Evaluation Position Standing Head/C-Spine Posture Forward Head T-Spine Posture Increased Kyphosis L-Spine Posture Flattened Shoulder Posture (L) Elevated Pelvis Posture Anteriorly Tilted,Posterior Tilted Weight Distribution Weight Shifted Right Knee Posture (L) Genu Valgus,(R) Genu Valgus Comments Posture Comments Foot deformity FB at hips ~35 deg's, L hip retracted. PT-OP-M Strength Start: 01/31/21 17:56 Freq: Status: Active Protocol: Document 02/04/21 08:18 LRN (Rec: 02/04/21 09:07 LRN [id number]) Hip Strength Hip Manual Muscle Testing Right Flexion (L2) 5 Normal Left Flexion (L2) 4 Good Knee Strength Knee Manual Muscle Testing Right Comments Generally 5/5 Left Comments Generally 5/5 Ankle/Foot Strength Ankle and Foot Manual Muscle Testing Right Comments Generally 5/5 Left Inversion 3 Fair Comments L foot deformity limiting IV mobility. PT-OP-Q Treatments Start: 01/31/21 17:56 Freq: Status: Active Protocol: Document 05/10/21 14:35 SP (Rec: 05/10/21 16:11 SP [id number]) Cardio Equipment Recumbent Stepper (Sci-Fit) Duration (Minutes) 4 Resistance 2>1.0 Seat Position 7 Other challenging, 52 RPMs, 2.3 METS , 0.47 miles Therapeutic Exercises Sitting Exercises trunk SB and Rotation Sitting Exercise Name Initiated in PT only Resistance TB #2-#3 Reps/Minutes x5 Comments didn't feel much so stopped- can revisit next tx. trunk flexion Sitting Exercise Name initiated in PT only. Resistance Tb #2> #3 Reps/Minutes 2x10 #2, x10 #3 Comments cued decrease UT recruitment, arms hold TB and rested on trunk, TA fac. Gait Training Gait Activity Gait w/o AD Description Gait Device Used None Level of Assistance CGA Surface Level Distance/Duration 151ft in 3 min 06 sec= 0.89ft/ sec, Treatment Focus Good wgt shift, even step lengths, a few episodes of LOB , regained Comments Pt demonstrated good weight shift with wide PAULO of feet, noted arm swing, required 3 stand rests with contact wall 3 sec at 40ft, 85ft, 136 ft then say down at 158 ft return to where started, improved pivot to L CGA to sit. Pt increased fatigue today, completed as last activity of tx. Pt did not comment that mask hindered her this tx. Noted longer stride L, shorter stride RLE to = with improved stability.d Neuro Re-Education Treatment Balance Activities TUG Details 2 trials Comments 1. 36 sec- LOB retro during pivot Mod A recover 2. 41 sec- CGA good safe pacing during pivot CGA, cues for body step pivot 3. 38 sec- min cues for LLE fully back to chair pre sit- CGA Self-Care/Home Management Treatment Education Patient Education Body Mechanics,Posture Other Education Initiated seated trunk flexion core fac this tx with moderate noted strengthening. Will assess again next tx if wanting to add for HEP. Activities Self-Care/Home Management Activities Extra time spend safety performance pivot transfers backing up to chair, more stable turning R than L but improved L with cuing for full LLE step back until feel chair behind knee. PT-OP-T Assessment and Plan Start: 01/31/21 17:56 Freq: Status: Active Protocol: Document 05/10/21 14:35 SP (Rec: 05/10/21 16:11 SP [id number]) Physical Therapy Assessment Goals Four Impairment Decreased endurance (30 sec sit to stand - 9 reps; 5TSTS = 15.7 secs) Short Term Goal (STG) Improve 5TSTS TO 12.6 secs ( Norm for 80-89 yo is 14.8 sec' s) 02/21/21: progressin reps in 16 sec. 03/08/21: 5 reps 19 sec ( moderate retro lean x1 self recovery quick sit into chair no UE support). (03/11/21: 17 secs with good control w/o use of hands) 04/02/21: 15.15 sec 04/09/21: 13 sec. 05/06/21: 16 sec STG Duration 03/08/21 (04/09/21: progressing ) Halfway Goal (LTG) Improve 30 sit to stand to 10- 15 reps (norm for ages 75-79 is 10-15 reps) 02/21/21: progressin.5 reps in 30 sec. 03/01/21: progressing 10 reps in 30 sec today. 03/08/21: 12 reps in 30 sec no UE support- 1 retro lean quick descent self recovery. 04/02/21: 12 reps arms across chest, stable. LTG Duration 05/05/21 (03/08/21: MET GOAL) Three Impairment Decreased Balance per ARRIETA score of 18 (60<80% impaired) Short Term Goal (STG) Improve standing reach (5 or more safely), and ability to stand and look behind without loss of balance. 03/08/21: porgressing: able to reach 5 outside PAULO without LOB. 04/02/21: 7 outside PAULO forward STG Duration 03/22/21 (03/08/21: GOAL MET) Halfway Goal (LTG) ARRIETA balance score of 34-44 ( 20<40% impaired) 03/08/21: 23/56- still high risk for falls. 04/05/21: 32/56- 40-59% impaired, moderate risk for falls LTG Duration 05/05/21 (04/05/21: Progressing) Two Impairment Decreased gait with need of FWW for safety (Tinetti 13 = high fall risk) Short Term Goal (STG) Overall Tinetti score 23-27 (1 <20% impaired) or score 19-24 (medium fall risk, <14 high fall) risk). 02/21/21: progressing , high risk for falls. 03/08/21: 09/17, high risk for falls. 03/11/21: Tinetti score is 18 (20<40% impaired) high risk for falls. 04/02/21: Moderate risk for falls (1-20% impaired). 04/26/21: Tinetti Balance score = 11 (Initial was 6, on was 10) STG Duration 03/22/21 (04/26/21: Tinetti Balance Improved ) Auto Transmission Specialist Goal (LTG) Pt will be able to walk without a cane safely 100' or more. 03/08/21: progressing: gait 152 ft using QC required stand rest for recovery 10-15 sec, provided SBA w/ gait belt for safety. 04/02/21: Completed 6MWT in 152ft requiring 3 x3 sec brief stop stand rests for recovery . 04/09/21: completed 6MWT in 192 .5 ft w/ QC with improved more fluid 3 pt patterning. 04/16/21: Gait 150' w QC, 1 standing rest with 4 episodes of increased sway and pt able to maintain balance x 3. 05/10/21:progressing: Therapy and pt has been practicing at home with using GB for safeyt gait without AD on deck with improved foot clearance and initiating arm swing 158 ft this tx CGA. LTG Duration 05/05/21 (05/10/21: Progressing) One Impairment Lacks appropriate HEP. Short Term Goal (STG) Improve ABC score 41-60 (40<60 % impaired). Eval score is 10 .62. 02/26/21: 31% 03/08/21: 71.875 % 04/16/21: 43% of self confidence STG Duration 03/22/21 (04/16/21: MET GOAL) Halfway Goal (LTG) Pt will be independent with a self care HEP to promote improving LE strength and balance. 03/05/21 HEP: ankle PF&EV TB, LAQ TB , posture scap squeeze w/ shld ER TB, heel toe walking, self STMs to calf/ quad/HS, eccentric HS curl TB, coordination foot ruano/ ankle IV/EV side taps/. LTG Duration 05/05/21 (03/05/21: Progressed) Assessment Summary Assessment Tx focused on safety transfers standing and pivot back to chair, LOB x1, due to decreased L foot clearance, required Mod A for recovery. Rest of reps CGA and improved post cues for relax small steps backing up to chair, feeling chair behind knees then controlled descent to chair with out UE support. Pt improved time, balance and safety post 3 assessments of TUG testing for confidence. Pt improved gait with noted arm swing this tx but performed at end of tx and thus required 3 stop stand rests and decreased distance. Physical Therapy Plan Frequency and Duration Frequency of Treatment 2x/Week Plan of Care Start Date 04/16/21 Plan of Care End Date 07/15/21 Therapeutic Interventions Therapeutic Interventions Balance Training,Coordination Training,Gait Training,Home Exercise Program,Manual Therapy,Neuromuscular Re- education,Patient/Caregiver Education,Self-Care/Home Management,Therapeutic Activities,Therapeutic Exercises Modalities Cold Pack/Ice Massage,Hot Packs Next Visit Focus/Plan Next Note Type Treatment Note Next Visit Plan Assess reponse to initiated seated trunk flexion,repeated TUG for safety and balance transfers and gait last tx. Next tx: review tandem/scissor stance balance LLE posterior, seated trunk flexion TB (PT only). POC: Add trunk strengthening ( R SB, R rot, and trunk flex/ ext). Assess Tinetti Gait, TUG. Cont Sit to stand to improve speed and control ( Check 5TSTS test). Progress Gait training to w/o QC (100+ feet goal) and goal to improve endurance (Check TUG with QC) . Continue focus on improving balance and safety with gait and endurance of sit to stand speed with controlled descent w/out UE support, aerobic tolerance/strength and gait with QC, balance training in mirror, postural training, LLE (ankles, hips & ecc knee) strengthening, (monitor IV/EV strengthening) movements, and progression in HEP.
--- NOTE | 2021-05-14 16:27 | PT.OTN ---
Current Diagnoses Muscle weakness (generalized) (05/14/21) Difficulty in walking, not elsewhere classified (05/14/21) Abnormal posture (05/14/21) Other symptoms and signs involving the nervous system (05/14/21) Physical Therapy Treatment Note PT-OP-A Visit Information Start: 01/31/21 17:56 Freq: Status: Active Protocol: Document 05/14/21 14:22 LRN (Rec: 05/14/21 15:08 LRN [id number]) Out-Patient Physical Therapy Visit Information Visit Information Visit Type Treatment Note Visit Start Time 14:22 Visit Stop Time 15:00 Total Visit Minutes 38 Visit Number 27 Evaluation Information Evaluation Date 02/04/21 Precautions Precautions 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 PT-OP-B Current Condition Start: 01/31/21 17:56 Freq: Status: Active Protocol: Document 02/04/21 08:18 LRN (Rec: 02/04/21 09:07 LRN [id number]) Current Condition History of Current Condition Onset Date November 2019 Current Complaints Having to use walker to walk. 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 In hospital 3-4 days, transferred to [facility] in [place] (fpc) and found PT to not be helpful, then home health care after 14 days of quarrentine after catching COVID. Had home health PT for 3 months. Now seeking outpatient PT independently. States she needs help walking without a walker. Have fallen a few times immediately after returning home, due to weak L leg. Doesn't have feeling in feet and has sharp pains in feet; therefore on Gabapentin. Uses topical CBD cream that helps a little. During the day and while walking around, no pain. Pain in feet is mainly at night when trying to go to sleep, or sitting watching TV. Prior Treatments and Tests Few years ago had PT for neuropathy. Has treadmill at home that she uses sometimes. Treatment Goals Patient/Caregiver Goals Pt goal is to be able to walk without a walker using a cane, improve endurance and balance and pt agreeable to being placed on a HEP at discharge. 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 Had to sit on bench to rest. Baseline Function- Other Up/down steps using 2 railings . Current Functional Impairments (Reported) Functional Limitations- ADL's Ambs around home occasioinally without walker (kitchen to living room, living room to laudry room and bathrrom). Walks on deck with FWW. Functional Limitations- Mobility/Gait Ambulates with FWW independently. 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 Can go up/down steps using 2 railings. Personal Factors Other Personal Factors That May Effect Neuropathy of the feet. Therapy/Recovery PT-OP-C Subjective Start: 01/31/21 17:56 Freq: Status: Active Protocol: Document 05/14/21 14:22 LRN (Rec: 05/14/21 15:08 LRN [id number]) OP-PT Subjective Patient Comments Patient Comments States she has been doing her HEP, mostly walking. Walking okay finding it easier to walk and less afraid to walk. Thinks she is walking farther . PT-OP-D Balance Start: 01/31/21 17:56 Freq: Status: Active Protocol: Document 04/05/21 13:47 SP (Rec: 04/05/21 14:48 SP [id number]) Balance Tests Arrieta Balance Test Arrieta Balance Test Score 32 Arrieta Impairment Rating 40 to 59% Impaired (Score 23- 33) PT-OP-E Functional Tests Start: 01/31/21 17:56 Freq: Status: Active Protocol: Document 04/26/21 14:19 LRN (Rec: 04/26/21 15:04 LRN [id number]) Functional Tests Timed Up and Go (TUG) Score 65 secs Comments QC (42 secs without AD) TUG Impairment Rating 100% Impaired (Score 20) Tinetti Balance and Gait Assessment Balance Score 11 Balance Score Impairment Rating 20 to <40% Impaired (Score 10- 12) PT-OP-G Mobility & Gait Start: 01/31/21 17:56 Freq: Status: Active Protocol: Document 02/04/21 08:18 LRN (Rec: 02/04/21 09:07 LRN [id number]) OP Gait Assessment Gait Gait Assistance Required: Independent Distance (Feet) 100 Able to Maintain Weight Bearing Status Yes During Gait Assistive Devices Assistive Device Front Wheeled Walker Gait Deviations General Gait Pattern Decreased Stride Length,Flexed Trunk,Lateral Trunk Lean, Narrow Based Gait,Step-to Gait Factors Limiting Gait Function Factors Limiting Gait Function Decreased Activity Tolerance, Decreased Strength,Poor Balance PT-OP-J Posture/Palpation/Skin Start: 01/31/21 17:56 Freq: Status: Active Protocol: Document 02/04/21 08:18 LRN (Rec: 02/04/21 09:07 LRN [id number]) Posture Evaluation Position Standing Head/C-Spine Posture Forward Head T-Spine Posture Increased Kyphosis L-Spine Posture Flattened Shoulder Posture (L) Elevated Pelvis Posture Anteriorly Tilted,Posterior Tilted Weight Distribution Weight Shifted Right Knee Posture (L) Genu Valgus,(R) Genu Valgus Comments Posture Comments Foot deformity FB at hips ~35 deg's, L hip retracted. PT-OP-M Strength Start: 01/31/21 17:56 Freq: Status: Active Protocol: Document 02/04/21 08:18 LRN (Rec: 02/04/21 09:07 LRN [id number]) Hip Strength Hip Manual Muscle Testing Right Flexion (L2) 5 Normal Left Flexion (L2) 4 Good Knee Strength Knee Manual Muscle Testing Right Comments Generally 5/5 Left Comments Generally 5/5 Ankle/Foot Strength Ankle and Foot Manual Muscle Testing Right Comments Generally 5/5 Left Inversion 3 Fair Comments L foot deformity limiting IV mobility. PT-OP-Q Treatments Start: 01/31/21 17:56 Freq: Status: Active Protocol: Document 05/14/21 14:22 LRN (Rec: 05/14/21 15:08 LRN [id number]) Therapeutic Exercises Sitting Exercises trunk flexion Sitting Exercise Name initiated in PT only. Resistance Tb #2> #3 Reps/Minutes 11' Sit rests and multiple adjustments for best tension Comments cued decrease UT recruitment, arms hold TB and rested on trunk, TA fac. Sit to stands Sitting Exercise Name Sit to stand Equipment Used 5 reps STS 16 & 20 secs with sit rests Comments good slow descent, SBA w/ UE, 1 LOB retro into chair when comiing to stand Standing Exercises Trunk rotation Standing Exercise Name Trunk rot Side bilateral Equipment Used Lev 2 TB Reps/Minutes 15' with sit rest between bouts Gait Training Gait Activity Gait w/o AD Description Gait Device Used None Level of Assistance CGA Surface Level Distance/Duration 10' with 2 rest periods Treatment Focus Good wgt shift, even step lengths, no episodes of LOB with short walks Comments Wide PAULO of feet, noted arm swing, required 2 stand rests. PT-OP-T Assessment and Plan Start: 01/31/21 17:56 Freq: Status: Active Protocol: Document 05/14/21 14:22 LRN (Rec: 05/14/21 15:08 LRN [id number]) Physical Therapy Assessment Goals Four Impairment Decreased endurance (30 sec sit to stand - 9 reps; 5TSTS = 15.7 secs) Short Term Goal (STG) Improve 5TSTS TO 12.6 secs ( Norm for 80-89 yo is 14.8 sec' s) 02/21/21: progressin reps in 16 sec. 03/08/21: 5 reps 19 sec ( moderate retro lean x1 self recovery quick sit into chair no UE support). (03/11/21: 17 secs with good control w/o use of hands) 04/02/21: 15.15 sec 04/09/21: 13 sec. 05/06/21: 16 sec STG Duration 03/08/21 (04/09/21: progressing ) Care Home Goal (LTG) Improve 30 sit to stand to 10- 15 reps (norm for ages 75-79 is 10-15 reps) 02/21/21: progressin.5 reps in 30 sec. 03/01/21: progressing 10 reps in 30 sec today. 03/08/21: 12 reps in 30 sec no UE support- 1 retro lean quick descent self recovery. 04/02/21: 12 reps arms across chest, stable. LTG Duration 05/05/21 (03/08/21: MET GOAL) Three Impairment Decreased Balance per ARRIETA score of 18 (60<80% impaired) Short Term Goal (STG) Improve standing reach (5 or more safely), and ability to stand and look behind without loss of balance. 03/08/21: porgressing: able to reach 5 outside PAULO without LOB. 04/02/21: 7 outside PAULO forward STG Duration 03/22/21 (03/08/21: GOAL MET) Care Home Goal (LTG) ARRIETA balance score of 34-44 ( 20<40% impaired) 03/08/21: 23/- still high risk for falls. 04/05/21: 32/56- 40-59% impaired, moderate risk for falls LTG Duration 05/05/21 (04/05/21: Progressing) Two Impairment Decreased gait with need of FWW for safety (Tinetti 13 = high fall risk) Short Term Goal (STG) Overall Tinetti score 23-27 (1 <20% impaired) or score 19-24 (medium fall risk, <14 high fall) risk). 02/21/21: progressing , high risk for falls. 03/08/21: 09/17, high risk for falls. 03/11/21: Tinetti score is 18 (20<40% impaired) high risk for falls. 04/02/21: Moderate risk for falls (1-20% impaired). 04/26/21: Tinetti Balance score = 11 (Initial was 6, on was 10) STG Duration 03/22/21 (04/26/21: Tinetti Balance Improved ) Knocker Out Goal (LTG) Pt will be able to walk without a cane safely 100' or more. 03/08/21: progressing: gait 152 ft using QC required stand rest for recovery 10-15 sec, provided SBA w/ gait belt for safety. 04/02/21: Completed 6MWT in 152ft requiring 3 x3 sec brief stop stand rests for recovery . 04/09/21: completed 6MWT in 192 .5 ft w/ QC with improved more fluid 3 pt patterning. 04/16/21: Gait 150' w QC, 1 standing rest with 4 episodes of increased sway and pt able to maintain balance x 3. 05/10/21:progressing: Therapy and pt has been practicing at home with using GB for safeyt gait without AD on deck with improved foot clearance and initiating arm swing 158 ft this tx CGA. LTG Duration 05/05/21 (05/10/21: Progressing) One Impairment Lacks appropriate HEP. Short Term Goal (STG) Improve ABC score 41-60 (40<60 % impaired). Eval score is 10 .62. 02/26/21: 31% 03/08/21: 71.875 % 04/16/21: 43% of self confidence STG Duration 03/22/21 (04/16/21: MET GOAL) Knocker Out Goal (LTG) Pt will be independent with a self care HEP to promote improving LE strength and balance. 03/05/21 HEP: ankle PF&EV TB, LAQ TB , posture scap squeeze w/ shld ER TB, heel toe walking, self STMs to calf/ quad/HS, eccentric HS curl TB, coordination foot ruano/ ankle IV/EV side taps/. LTG Duration 05/05/21 (03/05/21: Progressed) Assessment Summary Assessment Pt moves very unsteady during standing trunk rot strengthening due to newness of exercise. Pt 5x sit to stand time remains at 16 secs. Pt turns well with 1/2 turns , more difficult with tight 360 deg's turns. TUG scores appear extended due to extra time taken for sit<>stand transfers. With increased speed of sit<>stand pt tends to have LOB posteriorly. Gait stability appears improving with no noted catching of foot with gait. Physical Therapy Plan Frequency and Duration Frequency of Treatment 2x/Week Plan of Care Start Date 04/16/21 Plan of Care End Date 07/15/21 Next Visit Focus/Plan Next Note Type Treatment Note Next Visit Plan Assess Tinetti Gait. Review standing trunk rot strengthening, tandem/scissor stance balance LLE posterior, seated trunk flexion TB ( Physical Therapy only). Improve turning for TUG with QC. POC: Progress trunk strengthening (R SB, R rot, and trunk flex/ext) add to HEP only if spouse willing to guard pt. Cont Sit to stand to improve speed and control ( Check 5TSTS test). Progress Gait training to w/o QC (100+ feet goal) and goal to improve endurance (Check TUG with QC) . Continue focus on improving balance and safety with gait and endurance of sit to stand speed with controlled descent w/out UE support, aerobic tolerance/strength and gait with QC, balance training in mirror, postural training, LLE (ankles, hips & ecc knee) strengthening, (monitor IV/EV strengthening) movements, and progression in HEP.
--- NOTE | 2021-05-17 15:30 | PT.OTN ---
Current Diagnoses Muscle weakness (generalized) (05/17/21) Difficulty in walking, not elsewhere classified (05/17/21) Abnormal posture (05/17/21) Other symptoms and signs involving the nervous system (05/17/21) Physical Therapy Treatment Note PT-OP-A Visit Information Start: 01/31/21 17:56 Freq: Status: Active Protocol: Document 05/17/21 14:34 SP (Rec: 05/17/21 16:07 SP [id number]) Out-Patient Physical Therapy Visit Information Visit Information Visit Type Treatment Note Visit Start Time 14:34 Visit Stop Time 15:30 Total Visit Minutes 56 Visit Number 28 Number of SENIOR ADVISOR Visits 1 Evaluation Information Evaluation Date 02/04/21 Precautions Precautions 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 PT-OP-B Current Condition Start: 01/31/21 17:56 Freq: Status: Active Protocol: Document 02/04/21 08:18 LRN (Rec: 02/04/21 09:07 LRN [id number]) Current Condition History of Current Condition Onset Date November 2019 Current Complaints Having to use walker to walk. 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 In hospital 3-4 days, transferred to [facility] in [place] (detention) and found PT to not be helpful, then home health care after 14 days of quarrentine after catching COVID. Had home health PT for 3 months. Now seeking outpatient PT independently. States she needs help walking without a walker. Have fallen a few times immediately after returning home, due to weak L leg. Doesn't have feeling in feet and has sharp pains in feet; therefore on Gabapentin. Uses topical CBD cream that helps a little. During the day and while walking around, no pain. Pain in feet is mainly at night when trying to go to sleep, or sitting watching TV. Prior Treatments and Tests Few years ago had PT for neuropathy. Has treadmill at home that she uses sometimes. Treatment Goals Patient/Caregiver Goals Pt goal is to be able to walk without a walker using a cane, improve endurance and balance and pt agreeable to being placed on a HEP at discharge. 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 Had to sit on bench to rest. Baseline Function- Other Up/down steps using 2 railings . Current Functional Impairments (Reported) Functional Limitations- ADL's Ambs around home occasioinally without walker (kitchen to living room, living room to laudry room and bathrrom). Walks on deck with FWW. Functional Limitations- Mobility/Gait Ambulates with FWW independently. 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 Can go up/down steps using 2 railings. Personal Factors Other Personal Factors That May Effect Neuropathy of the feet. Therapy/Recovery PT-OP-C Subjective Start: 01/31/21 17:56 Freq: Status: Active Protocol: Document 05/17/21 14:34 SP (Rec: 05/17/21 16:07 SP [id number]) OP-PT Subjective Patient Comments Patient Comments Pt stated am practicing her walking on deck with holding onto her gait belt without AD, still not good at pivot sitting. PT-OP-D Balance Start: 01/31/21 17:56 Freq: Status: Active Protocol: Document 04/05/21 13:47 SP (Rec: 04/05/21 14:48 SP [id number]) Balance Tests Arrieta Balance Test Arrieta Balance Test Score 32 Arrieta Impairment Rating 40 to 59% Impaired (Score 23- 33) PT-OP-E Functional Tests Start: 01/31/21 17:56 Freq: Status: Active Protocol: Document 05/17/21 14:34 SP (Rec: 05/17/21 16:07 SP [id number]) Functional Tests Timed Up and Go (TUG) Score 35 sec fell into chair, 37 flop into chair, 38 sec good control&bal, no AD Comments >= 12 sec high fall risk TUG Impairment Rating 100% Impaired (Score 20) Tinetti Balance and Gait Assessment Balance Score 8 Gait Score 5 Composite Score 13 Balance Score Impairment Rating 40 to <60% Impaired (Score 7-9 ) Gait Score Impairment Rating 40 to <60% Impaired (Score 5-7 ) Composite Score Impairment Rating 40 to <60% Impaired (Score 12- 16) PT-OP-G Mobility & Gait Start: 05/13/21 17:56 Freq: Status: Active Protocol: Document 02/04/21 08:18 LRN (Rec: 02/04/21 09:07 LRN [id number]) OP Gait Assessment Gait Gait Assistance Required: Independent Distance (Feet) 100 Able to Maintain Weight Bearing Status Yes During Gait Assistive Devices Assistive Device Front Wheeled Walker Gait Deviations General Gait Pattern Decreased Stride Length,Flexed Trunk,Lateral Trunk Lean, Narrow Based Gait,Step-to Gait Factors Limiting Gait Function Factors Limiting Gait Function Decreased Activity Tolerance, Decreased Strength,Poor Balance PT-OP-J Posture/Palpation/Skin Start: 01/31/21 17:56 Freq: Status: Active Protocol: Document 02/04/21 08:18 LRN (Rec: 02/04/21 09:07 LRN [id number]) Posture Evaluation Position Standing Head/C-Spine Posture Forward Head T-Spine Posture Increased Kyphosis L-Spine Posture Flattened Shoulder Posture (L) Elevated Pelvis Posture Anteriorly Tilted,Posterior Tilted Weight Distribution Weight Shifted Right Knee Posture (L) Genu Valgus,(R) Genu Valgus Comments Posture Comments Foot deformity FB at hips ~35 deg's, L hip retracted. PT-OP-M Strength Start: 01/31/21 17:56 Freq: Status: Active Protocol: Document 02/04/21 08:18 LRN (Rec: 02/04/21 09:07 LRN [id number]) Hip Strength Hip Manual Muscle Testing Right Flexion (L2) 5 Normal Left Flexion (L2) 4 Good Knee Strength Knee Manual Muscle Testing Right Comments Generally 5/5 Left Comments Generally 5/5 Ankle/Foot Strength Ankle and Foot Manual Muscle Testing Right Comments Generally 5/5 Left Inversion 3 Fair Comments L foot deformity limiting IV mobility. PT-OP-Q Treatments Start: 01/31/21 17:56 Freq: Status: Active Protocol: Document 05/17/21 14:34 SP (Rec: 05/17/21 16:07 SP [id number]) Therapeutic Exercises Sitting Exercises L ankle DF Sitting Exercise Name L ankle EV, IV, DF Side bilateral Equipment Used Lev 1 TB easy> Lev 3 TB Reps/Minutes 30x each Comments Extra time for pt to learn self care HEP Standing Exercises Trunk rotation Standing Exercise Name Trunk rot (clasp hands front w / band, elbows tucked into sides) Side bilateral Resistance Lev 2 TB Equipment Used fWW front, chair behind Reps/Minutes 2x10 reps Comments cued Self-Care/Home Management Treatment Education Patient Education Body Mechanics,Fall Risk, Posture,Safety Other Education Education on safety pivot turn to L in front of chair during repeated TUG with cues for backing up LLE fully with tall posture and foot clearance until feel chair behind BLE then hip hinge slow safe decent into chair CGA. Pt fell into chair x1 35, flopped into chair x1 37 and good slow hip hinge flexion into chair without UE support 38. Improved demonstration with repetitions. PT-OP-T Assessment and Plan Start: 01/31/21 17:56 Freq: Status: Active Protocol: Document 05/17/21 14:34 SP (Rec: 05/17/21 16:07 SP [id number]) Physical Therapy Assessment Goals Four Impairment Decreased endurance (30 sec sit to stand - 9 reps; 5TSTS = 15.7 secs) Short Term Goal (STG) Improve 5TSTS TO 12.6 secs ( Norm for 80-89 yo is 14.8 sec' s) 02/21/21: progressin reps in 16 sec. 03/08/21: 5 reps 19 sec ( moderate retro lean x1 self recovery quick sit into chair no UE support). (03/11/21: 17 secs with good control w/o use of hands) 04/02/21: 15.15 sec 04/09/21: 13 sec. 05/06/21: 16 sec STG Duration 03/08/21 (04/09/21: progressing ) Prison Goal (LTG) Improve 30 sit to stand to 10- 15 reps (norm for ages 75-79 is 10-15 reps) 02/21/21: progressin.5 reps in 30 sec. 03/01/21: progressing 10 reps in 30 sec today. 03/08/21: 12 reps in 30 sec no UE support- 1 retro lean quick descent self recovery. 04/02/21: 12 reps arms across chest, stable. LTG Duration 05/05/21 (03/08/21: MET GOAL) Three Impairment Decreased Balance per ARRIETA score of 18 (60<80% impaired) Short Term Goal (STG) Improve standing reach (5 or more safely), and ability to stand and look behind without loss of balance. 03/08/21: porgressing: able to reach 5 outside PAULO without LOB. 04/02/21: 7 outside PAULO forward STG Duration 03/22/21 (03/08/21: GOAL MET) Linen Manager Goal (LTG) ARRIETA balance score of 34-44 ( 20<40% impaired) 03/08/21: - still high risk for falls. 04/05/21: /56- 40-59% impaired, moderate risk for falls LTG Duration 05/05/21 (04/05/21: Progressing) Two Impairment Decreased gait with need of FWW for safety (Tinetti 13 = high fall risk) Short Term Goal (STG) Overall Tinetti score 23-27 (1 <20% impaired) or score 19-24 (medium fall risk, <14 high fall) risk). 02/21/21: progressing , high risk for falls. 03/08/21: 09/17, high risk for falls. 03/11/21: Tinetti score is 18 (20<40% impaired) high risk for falls. 04/02/21: Moderate risk for falls (1-20% impaired). 04/26/21: Tinetti Balance score = 11 (Initial was 6, on was 10) 05/17/21: Tinetti balance score = 8/16 (last assessed 04/26/21 was 11/16). STG Duration 03/22/21 (05/17/21: Tinetti Balance declined ) Prison Goal (LTG) Pt will be able to walk without a cane safely 100' or more. 03/08/21: progressing: gait 152 ft using QC required stand rest for recovery 10-15 sec, provided SBA w/ gait belt for safety. 04/02/21: Completed 6MWT in 152ft requiring 3 x3 sec brief stop stand rests for recovery . 04/09/21: completed 6MWT in 192 .5 ft w/ QC with improved more fluid 3 pt patterning. 04/16/21: Gait 150' w QC, 1 standing rest with 4 episodes of increased sway and pt able to maintain balance x 3. 05/10/21:progressing: Therapy and pt has been practicing at home with using GB for safeyt gait without AD on deck with improved foot clearance and initiating arm swing 158 ft this tx CGA. LTG Duration 05/05/21 (05/10/21: Progressing) One Impairment Lacks appropriate HEP. Short Term Goal (STG) Improve ABC score 41-60 (40<60 % impaired). Eval score is 10 .62. 02/26/21: 31% 03/08/21: 71.875 % 04/16/21: 43% of self confidence STG Duration 03/22/21 (04/16/21: MET GOAL) Linen Manager Goal (LTG) Pt will be independent with a self care HEP to promote improving LE strength and balance. 03/05/21 HEP: ankle PF&EV TB, LAQ TB , posture scap squeeze w/ shld ER TB, heel toe walking, self STMs to calf/ quad/HS, eccentric HS curl TB, coordination foot ruano/ ankle IV/EV side taps/. 05/17/21: progressing: pt requires mod- Max cuing for setup and proper form usign hand outs for ankle TB strengthening EV, DF to assist increase LLE foot clearance during gait. LTG Duration 05/05/21 (04/2721: progressing) Progress Towards Goals Progress Towards Goals Slow Progress due to Activity Tolerance,Slow Progress - Other Progress Comments Tinetti Balance Score improved , today - 8 (Initial was 6, on 02/21/21 was 10, 04/26 was 11) Assessment Summary Assessment Pt continues to move unsteady during TUG at very end 180 turn to L, cues for tall posture and stepping back completely until feel chair behind BLE helps to increase stabiliy. Tinetti assessments performed without using AD. She is able to perform standing trunk rotation TB ex for core but demonstrates unsteady balance, placed FWW front and chair behind for safety. Pt states this is challenging and not doing at home because afraid of falling . Educated patient that scoring balance not as good this tx due to posture and not completing turn fully stepping back with LLE for safety and pt agreed I need to do that better. My contacts my belt at home when work o gait without cane for safety. Physical Therapy Plan Frequency and Duration Frequency of Treatment 2x/Week Plan of Care Start Date 04/16/21 Plan of Care End Date 07/15/21 Therapeutic Interventions Therapeutic Interventions Balance Training,Coordination Training,Gait Training,Home Exercise Program,Manual Therapy,Neuromuscular Re- education,Patient/Caregiver Education,Self-Care/Home Management,Therapeutic Activities,Therapeutic Exercises Modalities Cold Pack/Ice Massage,Hot Packs Next Visit Focus/Plan Next Note Type Treatment Note Next Visit Plan Assessed Tinetti see scoring, TUG and ankle HEP and standing core rotation TB last tx. Continue stand step pivot transfers and standing core strengthening to assist balance recovery. POC: tandem/scissor stance balance LLE posterior, seated trunk flexion TB (Physical Therapy only). Improve turning for TUG with QC. POC: Progress trunk strengthening (R SB, R rot, and trunk flex/ext) add to HEP only if spouse willing to guard pt. Cont Sit to stand to improve speed and control ( Check 5TSTS test). Progress Gait training to w/o QC (100+ feet goal) and goal to improve endurance (Check TUG with QC) . Continue focus on improving balance and safety with gait and endurance of sit to stand speed with controlled descent w/out UE support, aerobic tolerance/strength and gait with QC, balance training in mirror, postural training, LLE (ankles, hips & ecc knee) strengthening, (monitor IV/EV strengthening) movements, and progression in HEP.
--- NOTE | 2021-05-21 17:08 | PT.OTN ---
Current Diagnoses Muscle weakness (generalized) (05/21/21) Difficulty in walking, not elsewhere classified (05/21/21) Abnormal posture (05/21/21) Other symptoms and signs involving the nervous system (05/21/21) Physical Therapy Treatment Note PT-OP-A Visit Information Start: 01/31/21 17:56 Freq: Status: Active Protocol: Document 05/21/21 14:23 LRN (Rec: 05/21/21 15:03 LRN [id number]) Out-Patient Physical Therapy Visit Information Visit Information Visit Type Treatment Note Visit Start Time 14:23 Visit Stop Time 15:02 Total Visit Minutes 39 Visit Number 29 Evaluation Information Evaluation Date 02/04/21 Precautions Precautions 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 PT-OP-B Current Condition Start: 01/31/21 17:56 Freq: Status: Active Protocol: Document 02/04/21 08:18 LRN (Rec: 02/04/21 09:07 LRN [id number]) Current Condition History of Current Condition Onset Date November 2019 Current Complaints Having to use walker to walk. 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 In hospital 3-4 days, transferred to [facility] in [place] (prison) and found PT to not be helpful, then home health care after 14 days of quarrentine after catching COVID. Had home health PT for 3 months. Now seeking outpatient PT independently. States she needs help walking without a walker. Have fallen a few times immediately after returning home, due to weak L leg. Doesn't have feeling in feet and has sharp pains in feet; therefore on Gabapentin. Uses topical CBD cream that helps a little. During the day and while walking around, no pain. Pain in feet is mainly at night when trying to go to sleep, or sitting watching TV. Prior Treatments and Tests Few years ago had PT for neuropathy. Has treadmill at home that she uses sometimes. Treatment Goals Patient/Caregiver Goals Pt goal is to be able to walk without a walker using a cane, improve endurance and balance and pt agreeable to being placed on a HEP at discharge. 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 trail, not too far. Had to sit on bench to rest. Baseline Function- Other Up/down steps using 2 railings . Current Functional Impairments (Reported) Functional Limitations- ADL's Ambs around home occasioinally without walker (kitchen to living room, living room to laudry room and bathrrom). Walks on deck with FWW. Functional Limitations- Mobility/Gait Ambulates with FWW independently. 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 Can go up/down steps using 2 railings. Personal Factors Other Personal Factors That May Effect Neuropathy of the feet. Therapy/Recovery PT-OP-C Subjective Start: 01/31/21 17:56 Freq: Status: Active Protocol: Document 05/21/21 14:23 LRN (Rec: 05/21/21 15:03 LRN [id number]) OP-PT Subjective Patient Comments Patient Comments .... PT-OP-D Balance Start: 01/31/21 17:56 Freq: Status: Active Protocol: Document 04/05/21 13:47 SP (Rec: 04/05/21 14:48 SP [id number]) Balance Tests Arrieta Balance Test Arrieta Balance Test Score 32 Arrieta Impairment Rating 40 to 59% Impaired (Score 23- 33) PT-OP-E Functional Tests Start: 01/31/21 17:56 Freq: Status: Active Protocol: Document 05/21/21 14:23 LRN (Rec: 05/21/21 17:07 LRN [id number]) Functional Tests Other 5TSTS Name of Test 5TSTS Score 16 secs Comment Initial was 16 secs PT-OP-G Mobility & Gait Start: 01/31/21 17:56 Freq: Status: Active Protocol: Document 02/04/21 08:18 LRN (Rec: 02/04/21 09:07 LRN [id number]) OP Gait Assessment Gait Gait Assistance Required: Independent Distance (Feet) 100 Able to Maintain Weight Bearing Status Yes During Gait Assistive Devices Assistive Device Front Wheeled Walker Gait Deviations General Gait Pattern Decreased Stride Length,Flexed Trunk,Lateral Trunk Lean, Narrow Based Gait,Step-to Gait Factors Limiting Gait Function Factors Limiting Gait Function Decreased Activity Tolerance, Decreased Strength,Poor Balance PT-OP-J Posture/Palpation/Skin Start: 01/31/21 17:56 Freq: Status: Active Protocol: Document 02/04/21 08:18 LRN (Rec: 02/04/21 09:07 LRN [id number]) Posture Evaluation Position Standing Head/C-Spine Posture Forward Head T-Spine Posture Increased Kyphosis L-Spine Posture Flattened Shoulder Posture (L) Elevated Pelvis Posture Anteriorly Tilted,Posterior Tilted Weight Distribution Weight Shifted Right Knee Posture (L) Genu Valgus,(R) Genu Valgus Comments Posture Comments Foot deformity FB at hips ~35 deg's, L hip retracted. PT-OP-M Strength Start: 01/31/21 17:56 Freq: Status: Active Protocol: Document 02/04/21 08:18 LRN (Rec: 02/04/21 09:07 LRN [id number]) Hip Strength Hip Manual Muscle Testing Right Flexion (L2) 5 Normal Left Flexion (L2) 4 Good Knee Strength Knee Manual Muscle Testing Right Comments Generally 5/5 Left Comments Generally 5/5 Ankle/Foot Strength Ankle and Foot Manual Muscle Testing Right Comments Generally 5/5 Left Inversion 3 Fair Comments L foot deformity limiting IV mobility. PT-OP-Q Treatments Start: 01/31/21 17:56 Freq: Status: Active Protocol: Document 05/21/21 14:23 LRN (Rec: 05/21/21 15:03 LRN [id number]) Therapeutic Exercises Sitting Exercises trunk flexion Sitting Exercise Name Trunk Flex (ex for in PT only) Resistance Lev 2 TB Reps/Minutes 30x Comments Extra time training for controlled trnk flex L ankle DF Sitting Exercise Name L ankle EV, IV, DF Side bilateral Equipment Used Lev 1 TB easy> Lev 3 TB Reps/Minutes 30x each Comments Extra time for pt to perform self care HEP BKFO Sitting Exercise Name BKFO Side bilateral Resistance Lev 1 TB Reps/Minutes 30x foot tapping/coordination Sitting Exercise Name Foot tap together Side bilateral Reps/Minutes 3' coordination foot taps opp LE Sitting Exercise Name Foot tap opposite Side bilateral Standing Exercises Side stepping Standing Exercise Name Side step with TB held at chest, attached to wall Side bilateral Resistance Lev 2 TB Reps/Minutes 4-5 steps x 3 each Comments Side stepping R is worse than L. Trunk rotation Standing Exercise Name Trunk rot (clasp hands front w / band, elbows tucked into sides) Side bilateral Resistance Lev 2 TB/GB/ CGA Equipment Used chair close by Reps/Minutes 15x 2 Comments Sit rests needed between bouts sit <> stands Standing Exercise Name Sit<>Stand Reps/Minutes 5x (16 secs), 10x, 5x Comments Sit rest between bouts PT-OP-T Assessment and Plan Start: 01/31/21 17:56 Freq: Status: Active Protocol: Document 05/21/21 14:23 LRN (Rec: 05/21/21 15:03 LRN [id number]) Physical Therapy Assessment Goals Four Impairment Decreased endurance (30 sec sit to stand - 9 reps; 5TSTS = 15.7 secs) Short Term Goal (STG) Improve 5TSTS TO 12.6 secs ( Norm for 80-89 yo is 14.8 sec' s) 02/21/21: progressin reps in 16 sec. 03/08/21: 5 reps 19 sec ( moderate retro lean x1 self recovery quick sit into chair no UE support). (03/11/21: 17 secs with good control w/o use of hands) 04/02/21: 15.15 sec 04/09/21: 13 sec. 05/06/21: 16 sec STG Duration 03/08/21 (04/09/21: progressing ) Senior Care Goal (LTG) Improve 30 sit to stand to 10- 15 reps (norm for ages 75-79 is 10-15 reps) 02/21/21: progressin.5 reps in 30 sec. 03/01/21: progressing 10 reps in 30 sec today. 03/08/21: 12 reps in 30 sec no UE support- 1 retro lean quick descent self recovery. 04/02/21: 12 reps arms across chest, stable. LTG Duration 05/05/21 (03/08/21: MET GOAL) Three Impairment Decreased Balance per ARRIETA score of 18 (60<80% impaired) Short Term Goal (STG) Improve standing reach (5 or more safely), and ability to stand and look behind without loss of balance. 03/08/21: porgressing: able to reach 5 outside PAULO without LOB. 04/02/21: 7 outside PAULO forward STG Duration 03/22/21 (03/08/21: GOAL MET) Senior Care Goal (LTG) ARRIETA balance score of 34-44 ( 20<40% impaired) 03/08/21: 23- still high risk for falls. 04/05/21: /- 40-59% impaired, moderate risk for falls LTG Duration 05/05/21 (04/05/21: Progressing) Two Impairment Decreased gait with need of FWW for safety (Tinetti 13 = high fall risk) Short Term Goal (STG) Overall Tinetti score 23-27 (1 <20% impaired) or score 19-24 (medium fall risk, <14 high fall) risk). 02/21/21: progressing , high risk for falls. 03/08/21: 09/17, high risk for falls. 03/11/21: Tinetti score is 18 (20<40% impaired) high risk for falls. 04/02/21: Moderate risk for falls (1-20% impaired). 04/26/21: Tinetti Balance score = 11 (Initial was 6, on was 10) 05/17/21: Tinetti balance score = 8/16 (last assessed 04/26/21 was 11/16). STG Duration 03/22/21 (05/17/21: Tinetti Balance declined ) Senior Care Goal (LTG) Pt will be able to walk without a cane safely 100' or more. 03/08/21: progressing: gait 152 ft using QC required stand rest for recovery 10-15 sec, provided SBA w/ gait belt for safety. 04/02/21: Completed 6MWT in 152ft requiring 3 x3 sec brief stop stand rests for recovery . 04/09/21: completed 6MWT in 192 .5 ft w/ QC with improved more fluid 3 pt patterning. 04/16/21: Gait 150' w QC, 1 standing rest with 4 episodes of increased sway and pt able to maintain balance x 3. 05/10/21:progressing: Therapy and pt has been practicing at home with using GB for safeyt gait without AD on deck with improved foot clearance and initiating arm swing 158 ft this tx CGA. LTG Duration 05/05/21 (05/10/21: Progressing) One Impairment Lacks appropriate HEP. Short Term Goal (STG) Improve ABC score 41-60 (40<60 % impaired). Eval score is 10 .62. 02/26/21: 31% 03/08/21: 71.875 % 04/16/21: 43% of self confidence STG Duration 03/22/21 (04/16/21: MET GOAL) Ostrich Farmer Goal (LTG) Pt will be independent with a self care HEP to promote improving LE strength and balance. 03/05/21 HEP: ankle PF&EV TB, LAQ TB , posture scap squeeze w/ shld ER TB, heel toe walking, self STMs to calf/ quad/HS, eccentric HS curl TB, coordination foot ruano/ ankle IV/EV side taps/. 05/17/21: progressing: pt requires mod- Max cuing for setup and proper form usign hand outs for ankle TB strengthening EV, DF to assist increase LLE foot clearance during gait. LTG Duration 05/05/21 (04/2721: progressing) Assessment Summary Assessment Pt has fair to good recall of ankle ex's. Pt very nervous about standing ex's; therefore not to be done as HEP. Pt fatigues quickly, no change with 5TSTS (16 secs). Physical Therapy Plan Frequency and Duration Frequency of Treatment 2x/Week Plan of Care Start Date 04/16/21 Plan of Care End Date 07/15/21 Next Visit Focus/Plan Next Note Type Treatment Note Next Visit Plan Continue stand step pivot transfers, sit to stands for speed and endurance, and standing core strengthening to assist balance recovery. Assess standing reach. POC: tandem/scissor stance balance LLE posterior, seated trunk flexion TB (Physical Therapy only). Improve turning for TUG with QC. POC: Progress trunk strengthening (R SB, R rot, and trunk flex/ext) add to HEP only if spouse willing to guard pt. Cont Sit to stand to improve speed and control ( Check 5TSTS test). Progress Gait training to w/o QC (100+ feet goal) and goal to improve endurance (Check TUG with QC) . Continue focus on improving balance and safety with gait and endurance of sit to stand speed with controlled descent w/out UE support, aerobic tolerance/strength and gait with QC, balance training in mirror, postural training, LLE (ankles, hips & ecc knee) strengthening, (monitor IV/EV strengthening) movements, and progression in HEP.
--- NOTE | 2021-05-24 16:45 | PT.OTN ---
Current Diagnoses Muscle weakness (generalized) (05/24/21) Difficulty in walking, not elsewhere classified (05/24/21) Abnormal posture (05/24/21) Other symptoms and signs involving the nervous system (05/24/21) Physical Therapy Treatment Note PT-OP-A Visit Information Start: 01/31/21 17:56 Freq: Status: Active Protocol: Document 05/24/21 13:36 LRN (Rec: 05/24/21 14:20 LRN [id number]) Out-Patient Physical Therapy Visit Information Visit Information Visit Type Treatment Note Visit Start Time 13:36 Visit Stop Time 14:14 Total Visit Minutes 38 Visit Number 30 Evaluation Information Evaluation Date 02/04/21 Precautions Precautions 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 PT-OP-B Current Condition Start: 01/31/21 17:56 Freq: Status: Active Protocol: Document 02/04/21 08:18 LRN (Rec: 02/04/21 09:07 LRN [id number]) Current Condition History of Current Condition Onset Date November 2019 Current Complaints Having to use walker to walk. 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 In hospital 3-4 days, transferred to [facility] in [place] (halfway) and found PT to not be helpful, then home health care after 14 days of quarrentine after catching COVID. Had home health PT for 3 months. Now seeking outpatient PT independently. States she needs help walking without a walker. Have fallen a few times immediately after returning home, due to weak L leg. Doesn't have feeling in feet and has sharp pains in feet; therefore on Gabapentin. Uses topical CBD cream that helps a little. During the day and while walking around, no pain. Pain in feet is mainly at night when trying to go to sleep, or sitting watching TV. Prior Treatments and Tests Few years ago had PT for neuropathy. Has treadmill at home that she uses sometimes. Treatment Goals Patient/Caregiver Goals Pt goal is to be able to walk without a walker using a cane, improve endurance and balance and pt agreeable to being placed on a HEP at discharge. 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 Had to sit on bench to rest. Baseline Function- Other Up/down steps using 2 railings . Current Functional Impairments (Reported) Functional Limitations- ADL's Ambs around home occasioinally without walker (kitchen to living room, living room to laudry room and bathrrom). Walks on deck with FWW. Functional Limitations- Mobility/Gait Ambulates with FWW independently. 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 Can go up/down steps using 2 railings. Personal Factors Other Personal Factors That May Effect Neuropathy of the feet. Therapy/Recovery PT-OP-C Subjective Start: 01/31/21 17:56 Freq: Status: Active Protocol: Document 05/24/21 13:36 LRN (Rec: 05/24/21 14:20 LRN [id number]) OP-PT Subjective Patient Comments Patient Comments States she wants to be able to walk the [employer] [place] and would like to focus on that. PT-OP-D Balance Start: 01/31/21 17:56 Freq: Status: Active Protocol: Document 04/05/21 13:47 SP (Rec: 04/05/21 14:48 SP [id number]) Balance Tests Arrieta Balance Test Arrieta Balance Test Score 32 Arrieta Impairment Rating 40 to 59% Impaired (Score 23- 33) PT-OP-E Functional Tests Start: 01/31/21 17:56 Freq: Status: Active Protocol: Document 05/24/21 13:36 LRN (Rec: 05/24/21 14:20 LRN [id number]) Functional Tests Other 5TSTS Name of Test 5TSTS Score 31 secs Comment Initial was 16 secs PT-OP-G Mobility & Gait Start: 01/31/21 17:56 Freq: Status: Active Protocol: Document 02/04/21 08:18 LRN (Rec: 02/04/21 09:07 LRN [id number]) OP Gait Assessment Gait Gait Assistance Required: Independent Distance (Feet) 100 Able to Maintain Weight Bearing Status Yes During Gait Assistive Devices Assistive Device Front Wheeled Walker Gait Deviations General Gait Pattern Decreased Stride Length,Flexed Trunk,Lateral Trunk Lean, Narrow Based Gait,Step-to Gait Factors Limiting Gait Function Factors Limiting Gait Function Decreased Activity Tolerance, Decreased Strength,Poor Balance PT-OP-J Posture/Palpation/Skin Start: 01/31/21 17:56 Freq: Status: Active Protocol: Document 02/04/21 08:18 LRN (Rec: 02/04/21 09:07 LRN [id number]) Posture Evaluation Position Standing Head/C-Spine Posture Forward Head T-Spine Posture Increased Kyphosis L-Spine Posture Flattened Shoulder Posture (L) Elevated Pelvis Posture Anteriorly Tilted,Posterior Tilted Weight Distribution Weight Shifted Right Knee Posture (L) Genu Valgus,(R) Genu Valgus Comments Posture Comments Foot deformity FB at hips ~35 deg's, L hip retracted. PT-OP-M Strength Start: 01/31/21 17:56 Freq: Status: Active Protocol: Document 02/04/21 08:18 LRN (Rec: 02/04/21 09:07 LRN [id number]) Hip Strength Hip Manual Muscle Testing Right Flexion (L2) 5 Normal Left Flexion (L2) 4 Good Knee Strength Knee Manual Muscle Testing Right Comments Generally 5/5 Left Comments Generally 5/5 Ankle/Foot Strength Ankle and Foot Manual Muscle Testing Right Comments Generally 5/5 Left Inversion 3 Fair Comments L foot deformity limiting IV mobility. PT-OP-Q Treatments Start: 01/31/21 17:56 Freq: Status: Active Protocol: Document 05/24/21 13:36 LRN (Rec: 05/24/21 14:20 LRN [id number]) Therapeutic Exercises Sitting Exercises trunk flexion Sitting Exercise Name Trunk Flex (ex for in PT only) Resistance Lev 2 TB Reps/Minutes 30x Comments V cuing for pt to breath w/ex and to contorl movement Sit to stands Sitting Exercise Name Sit to stand Reps/Minutes 10x Comments good slow descent, repeat trial 1x foot tapping/coordination Sitting Exercise Name Foot tap alternating Side bilateral Reps/Minutes 3' Standing Exercises Trunk rotation Standing Exercise Name Trunk rot (clasp hands front w / band, elbows tucked into sides) Side bilateral Resistance Lev 2 TB/GB/ CGA Equipment Used chair close by Reps/Minutes 20x 1, 10x 1 Gait Training Gait Activity Gait w/o AD Description Gait on level w/CGA/GB Device Used None Level of Assistance CGA Surface Level Distance/Duration 102 ft Treatment Focus Endurance/safety Comments Pt had one episode of LOB that she was able to regain, but resulted in her balancing on the RLE. Neuro Re-Education Treatment Balance Activities corner balance Details Feet together, SLS - L & R Surface Level Equipment Corner Reps/Duration 18' PT-OP-T Assessment and Plan Start: 01/31/21 17:56 Freq: Status: Active Protocol: Document 05/24/21 13:36 LRN (Rec: 05/24/21 14:20 LRN [id number]) Physical Therapy Assessment Goals Four Impairment Decreased endurance (30 sec sit to stand - 9 reps; 5TSTS = 15.7 secs) Short Term Goal (STG) Improve 5TSTS TO 12.6 secs ( Norm for 80-89 yo is 14.8 sec' s) 02/21/21: progressin reps in 16 sec. 03/08/21: 5 reps 19 sec ( moderate retro lean x1 self recovery quick sit into chair no UE support). (03/11/21: 17 secs with good control w/o use of hands) 04/02/21: 15.15 sec 04/09/21: 13 sec. 05/06/21: 16 sec STG Duration 03/08/21 (04/09/21: progressing ) Half-Way Goal (LTG) Improve 30 sit to stand to 10- 15 reps (norm for ages 75-79 is 10-15 reps) 02/21/21: progressin.5 reps in 30 sec. 03/01/21: progressing 10 reps in 30 sec today. 03/08/21: 12 reps in 30 sec no UE support- 1 retro lean quick descent self recovery. 04/02/21: 12 reps arms across chest, stable. LTG Duration 05/05/21 (03/08/21: MET GOAL) Three Impairment Decreased Balance per ARRIETA score of 18 (60<80% impaired) Short Term Goal (STG) Improve standing reach (5 or more safely), and ability to stand and look behind without loss of balance. 03/08/21: porgressing: able to reach 5 outside PAULO without LOB. 04/02/21: 7 outside PAULO forward STG Duration 03/22/21 (03/08/21: GOAL MET) Half-Way Goal (LTG) ARRIETA balance score of 34-44 ( 20<40% impaired) 03/08/21: 23/56- still high risk for falls. 04/05/21: 32/56- 40-59% impaired, moderate risk for falls LTG Duration 05/05/21 (04/05/21: Progressing) Two Impairment Decreased gait with need of FWW for safety (Tinetti 13 = high fall risk) Short Term Goal (STG) Overall Tinetti score 23-27 (1 <20% impaired) or score 19-24 (medium fall risk, <14 high fall) risk). 02/21/21: progressing , high risk for falls. 03/08/21: 09/17, high risk for falls. 03/11/21: Tinetti score is 18 (20<40% impaired) high risk for falls. 04/02/21: Moderate risk for falls (1-20% impaired). 04/26/21: Tinetti Balance score = 11 (Initial was 6, on was 10) 05/17/21: Tinetti balance score = 8/16 (last assessed 04/26/21 was 11/16). STG Duration 03/22/21 (05/17/21: Tinetti Balance declined ) Half-Way Goal (LTG) Pt will be able to walk without a cane safely 100' or more. 03/08/21: progressing: gait 152 ft using QC required stand rest for recovery 10-15 sec, provided SBA w/ gait belt for safety. 04/02/21: Completed 6MWT in 152ft requiring 3 x3 sec brief stop stand rests for recovery . 04/09/21: completed 6MWT in 192 .5 ft w/ QC with improved more fluid 3 pt patterning. 04/16/21: Gait 150' w QC, 1 standing rest with 4 episodes of increased sway and pt able to maintain balance x 3. 05/10/21:progressing: Therapy and pt has been practicing at home with using GB for safeyt gait without AD on deck with improved foot clearance and initiating arm swing 158 ft this tx CGA. LTG Duration 05/05/21 (05/10/21: Progressing) One Impairment Lacks appropriate HEP. Short Term Goal (STG) Improve ABC score 41-60 (40<60 % impaired). Eval score is 10 .62. 02/26/21: 31% 03/08/21: 71.875 % 04/16/21: 43% of self confidence STG Duration 03/22/21 (04/16/21: MET GOAL) Life Sciences Manager Goal (LTG) Pt will be independent with a self care HEP to promote improving LE strength and balance. 03/05/21 HEP: ankle PF&EV TB, LAQ TB , posture scap squeeze w/ shld ER TB, heel toe walking, self STMs to calf/ quad/HS, eccentric HS curl TB, coordination foot ruano/ ankle IV/EV side taps/. 05/17/21: progressing: pt requires mod- Max cuing for setup and proper form usign hand outs for ankle TB strengthening EV, DF to assist increase LLE foot clearance during gait. LTG Duration 05/05/21 (04/2721: progressing) Assessment Summary Assessment Pt is able to walk without an assistive device, but requires close supervision. With gait training session and at end of therapy walking to walker she had an episode of LOB that she was able to self correct both times, but had possibility of full LOB; therefore if pt is to walk at home with spouse, close supervision or CGA is needed. Pt has somewhat poor aerobic capacity with fatigue after 100 ft of gait. Adding more ex times during the day will hopefully improve her LE strength and her aerobic capacity. Physical Therapy Plan Frequency and Duration Frequency of Treatment 2x/Week Plan of Care Start Date 04/16/21 Plan of Care End Date 07/15/21 Next Visit Focus/Plan Next Note Type Treatment Note Next Visit Plan Assess standing reach. Focus on gait for pt to walk [employer] [place] & balance for safe gait. Also, continue stand step pivot transfers, sit to stands for speed and endurance, and standing core strengthening to assist balance recovery. POC: tandem/scissor stance balance LLE posterior, seated trunk flexion TB (Physical Therapy only). Improve turning for TUG with QC. POC: Trunk strengthening (R SB , R rot, and trunk flex/ext) add to HEP only if spouse willing to guard pt. Cont Sit to stand to improve speed and control (Check 5TSTS test). Progress Gait training w/o AD and safely (100+ feet goal) and goal to improve endurance (Check TUG with QC). Continue focus on improving balance and safety with gait and endurance of sit to stand speed with controlled descent w/out UE support, aerobic tolerance/strength and gait with QC, balance training in mirror, postural training, LLE (ankles, hips & ecc knee) strengthening, (monitor IV/EV strengthening) movements, and progression in HEP.
--- NOTE | 2021-05-28 14:30 | PT.OTN ---
Current Diagnoses Muscle weakness (generalized) (05/28/21) Difficulty in walking, not elsewhere classified (05/28/21) Abnormal posture (05/28/21) Other symptoms and signs involving the nervous system (05/28/21) Physical Therapy Treatment Note PT-OP-A Visit Information Start: 01/31/21 17:56 Freq: Status: Active Protocol: Document 05/28/21 13:51 SP (Rec: 05/28/21 14:32 SP [id number]) Out-Patient Physical Therapy Visit Information Visit Information Visit Type Treatment Note Visit Start Time 13:51 Visit Stop Time 14:30 Total Visit Minutes 39 Visit Number 31 Number of STRIPPING SHOVEL OILER Visits 1 Evaluation Information Evaluation Date 02/04/21 Precautions Precautions 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 PT-OP-B Current Condition Start: 01/31/21 17:56 Freq: Status: Active Protocol: Document 02/04/21 08:18 LRN (Rec: 02/04/21 09:07 LRN [id number]) Current Condition History of Current Condition Onset Date November 2019 Current Complaints Having to use walker to walk. 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 In hospital 3-4 days, transferred to [facility] in [place] (alf) and found PT to not be helpful, then home health care after 14 days of [place]rent[place] after catching COVID. Had home health PT for 3 months. Now seeking outpatient PT independently. States she needs help walking without a walker. Have fallen a few times immediately after returning home, due to weak L leg. Doesn't have feeling in feet and has sharp pains in feet; therefore on Gabapentin. Uses topical CBD cream that helps a little. During the day and while walking around, no pain. Pain in feet is mainly at night when trying to go to sleep, or sitting watching TV. Prior Treatments and Tests Few years ago had PT for neuropathy. Has treadmill at home that she uses sometimes. Treatment Goals Patient/Caregiver Goals Pt goal is to be able to walk without a walker using a cane, improve endurance and balance and pt agreeable to being placed on a HEP at discharge. 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 Had to sit on bench to rest. Baseline Function- Other Up/down steps using 2 railings . Current Functional Impairments (Reported) Functional Limitations- ADL's Ambs around home occasioinally without walker (kitchen to living room, living room to laudry room and bathrrom). Walks on deck with FWW. Functional Limitations- Mobility/Gait Ambulates with FWW independently. 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 Can go up/down steps using 2 railings. Personal Factors Other Personal Factors That May Effect Neuropathy of the feet. Therapy/Recovery PT-OP-C Subjective Start: 01/31/21 17:56 Freq: Status: Active Protocol: Document 05/28/21 13:51 SP (Rec: 05/28/21 14:32 SP [id number]) OP-PT Subjective Patient Comments Patient Comments Pt stated tried to work on single leg stance at home with and wasn't able to perform longer than 1 sec and wondered if PT knew has neuropathy. PT-OP-D Balance Start: 01/31/21 17:56 Freq: Status: Active Protocol: Document 04/05/21 13:47 SP (Rec: 04/05/21 14:48 SP [id number]) Balance Tests Arrieta Balance Test Arrieta Balance Test Score 32 Arrieta Impairment Rating 40 to 59% Impaired (Score 23- 33) PT-OP-E Functional Tests Start: 01/31/21 17:56 Freq: Status: Active Protocol: Document 05/24/21 13:36 LRN (Rec: 05/24/21 14:20 LRN [id number]) Functional Tests Other 5TSTS Name of Test 5TSTS Score 31 secs Comment Initial was 16 secs PT-OP-G Mobility & Gait Start: 01/31/21 17:56 Freq: Status: Active Protocol: Document 02/04/21 08:18 LRN (Rec: 02/04/21 09:07 LRN [id number]) OP Gait Assessment Gait Gait Assistance Required: Independent Distance (Feet) 100 Able to Maintain Weight Bearing Status Yes During Gait Assistive Devices Assistive Device Front Wheeled Walker Gait Deviations General Gait Pattern Decreased Stride Length,Flexed Trunk,Lateral Trunk Lean, Narrow Based Gait,Step-to Gait Factors Limiting Gait Function Factors Limiting Gait Function Decreased Activity Tolerance, Decreased Strength,Poor Balance PT-OP-J Posture/Palpation/Skin Start: 01/31/21 17:56 Freq: Status: Active Protocol: Document 02/04/21 08:18 LRN (Rec: 02/04/21 09:07 LRN [id number]) Posture Evaluation Position Standing Head/C-Spine Posture Forward Head T-Spine Posture Increased Kyphosis L-Spine Posture Flattened Shoulder Posture (L) Elevated Pelvis Posture Anteriorly Tilted,Posterior Tilted Weight Distribution Weight Shifted Right Knee Posture (L) Genu Valgus,(R) Genu Valgus Comments Posture Comments Foot deformity FB at hips ~35 deg's, L hip retracted. PT-OP-M Strength Start: 01/31/21 17:56 Freq: Status: Active Protocol: Document 02/04/21 08:18 LRN (Rec: 02/04/21 09:07 LRN [id number]) Hip Strength Hip Manual Muscle Testing Right Flexion (L2) 5 Normal Left Flexion (L2) 4 Good Knee Strength Knee Manual Muscle Testing Right Comments Generally 5/5 Left Comments Generally 5/5 Ankle/Foot Strength Ankle and Foot Manual Muscle Testing Right Comments Generally 5/5 Left Inversion 3 Fair Comments L foot deformity limiting IV mobility. PT-OP-Q Treatments Start: 01/31/21 17:56 Freq: Status: Active Protocol: Document 05/28/21 13:51 SP (Rec: 05/28/21 14:32 SP [id number]) Gym Equipment Sport Cord green Exercise Details f/b/side stepping Cord/Resistance green Reps/Duration 3 reps each direction Comments seated rest after each direction, cued tall posture over PAULO (balls to feet), slow eccentric soft stepping- CG> Mod A Therapeutic Exercises Sitting Exercises trunk flexion Sitting Exercise Name Trunk Flex (ex for in PT only) Resistance Lev 2 TB Reps/Minutes 30x Comments V cuing for pt to breath w/ex and to contorl movement Sit to stands Sitting Exercise Name Sit to stand Reps/Minutes 10x Comments good slow descent, repeat trial 1x foot tapping/coordination Sitting Exercise Name Foot tap alternating Side bilateral Reps/Minutes 3' Standing Exercises Trunk rotation Standing Exercise Name Trunk rot (clasp hands front w / band, elbows tucked into sides) Side bilateral Resistance Lev 2 TB/GB/ CGA Equipment Used chair close behind Reps/Minutes 2x15 reps Comments seated rests between sets sit <> stands Standing Exercise Name Sit<>Stand Reps/Minutes 5x (16 secs), 10x, 5x Comments Sit rest between bouts Gait Training Gait Activity Gait w/o AD Description Gait on level w/CGA/GB Device Used None Level of Assistance CGA Surface Level Distance/Duration 60 ft x3 laps Treatment Focus Endurance/safety Comments Pt forward gait, improved arm swing, cued heel toe and LLE foot clearance, LOB self retro x2 when returns pivot front chair Min A for recovery- 3 lap cued walk closer to chair before pivot to less retro stepping- improved eccentric sit to chair CGA. PT-OP-T Assessment and Plan Start: 01/31/21 17:56 Freq: Status: Active Protocol: Document 05/28/21 13:51 SP (Rec: 05/28/21 14:32 SP [id number]) Physical Therapy Assessment Goals Four Impairment Decreased endurance (30 sec sit to stand - 9 reps; 5TSTS = 15.7 secs) Short Term Goal (STG) Improve 5TSTS TO 12.6 secs ( Norm for 80-89 yo is 14.8 sec' s) 02/21/21: progressin reps in 16 sec. 03/08/21: 5 reps 19 sec ( moderate retro lean x1 self recovery quick sit into chair no UE support). (03/11/21: 17 secs with good control w/o use of hands) 04/02/21: 15.15 sec 04/09/21: 13 sec. 05/06/21: 16 sec STG Duration 03/08/21 (04/09/21: progressing ) [facility] Goal (LTG) Improve 30 sit to stand to 10- 15 reps (norm for ages 75-79 is 10-15 reps) 02/21/21: progressin.5 reps in 30 sec. 03/01/21: progressing 10 reps in 30 sec today. 03/08/21: 12 reps in 30 sec no UE support- 1 retro lean quick descent self recovery. 04/02/21: 12 reps arms across chest, stable. LTG Duration 05/05/21 (03/08/21: MET GOAL) Three Impairment Decreased Balance per ARRIETA score of 18 (60<80% impaired) Short Term Goal (STG) Improve standing reach (5 or more safely), and ability to stand and look behind without loss of balance. 03/08/21: porgressing: able to reach 5 outside PAULO without LOB. 04/02/21: 7 outside PAULO forward STG Duration 03/22/21 (03/08/21: GOAL MET) [employer] Regulator Repairer Helper Goal (LTG) ARRIETA balance score of 34-44 ( 20<40% impaired) 03/08/21: - still high risk for falls. 04/05/21: /- 40-59% impaired, moderate risk for falls LTG Duration 05/05/21 (04/05/21: Progressing) Two Impairment Decreased gait with need of FWW for safety (Tinetti 13 = high fall risk) Short Term Goal (STG) Overall Tinetti score 23-27 (1 <20% impaired) or score 19-24 (medium fall risk, <14 high fall) risk). 02/21/21: progressing , high risk for falls. 03/08/21: 09/17, high risk for falls. 03/11/21: Tinetti score is 18 (20<40% impaired) high risk for falls. 04/02/21: Moderate risk for falls (1-20% impaired). 04/26/21: Tinetti Balance score = 11 (Initial was 6, on was 10) 05/17/21: Tinetti balance score = 8/16 (last assessed 04/26/21 was 11/16). STG Duration 03/22/21 (05/17/21: Tinetti Balance declined ) [facility] Goal (LTG) Pt will be able to walk without a cane safely 100' or more. 03/08/21: progressing: gait 152 ft using QC required stand rest for recovery 10-15 sec, provided SBA w/ gait belt for safety. 04/02/21: Completed 6MWT in 152ft requiring 3 x3 sec brief stop stand rests for recovery . 04/09/21: completed 6MWT in 192 .5 ft w/ QC with improved more fluid 3 pt patterning. 04/16/21: Gait 150' w QC, 1 standing rest with 4 episodes of increased sway and pt able to maintain balance x 3. 05/10/21:progressing: Therapy and pt has been practicing at home with using GB for safeyt gait without AD on deck with improved foot clearance and initiating arm swing 158 ft this tx CGA. LTG Duration 05/05/21 (05/10/21: Progressing) One Impairment Lacks appropriate HEP. Short Term Goal (STG) Improve ABC score 41-60 (40<60 % impaired). Eval score is 10 .62. 02/26/21: 31% 03/08/21: 71.875 % 04/16/21: 43% of self confidence STG Duration 03/22/21 (04/16/21: MET GOAL) [facility] Goal (LTG) Pt will be independent with a self care HEP to promote improving LE strength and balance. 03/05/21 HEP: ankle PF&EV TB, LAQ TB , posture scap squeeze w/ shld ER TB, heel toe walking, self STMs to calf/ quad/HS, eccentric HS curl TB, coordination foot ruano/ ankle IV/EV side taps/. 05/17/21: progressing: pt requires mod- Max cuing for setup and proper form usign hand outs for ankle TB strengthening EV, DF to assist increase LLE foot clearance during gait. LTG Duration 05/05/21 (04/2721: progressing) Assessment Summary Assessment Pt improves LLE foot clearance with cues and self corrections of arm swing during gait close SBA on straight directioning. Pt has LOB retro x2 during pivot turn and retro step back pre transfer to sit but pivot turns end length of hallway with fair stability. Extra time education on gait closer to chair before pivot turn w/ taller posture and foot clearance of LLE CGA w/ COG over PAULO. Initiated sport cord with improved eccentric retro stepping initially but tires quickly by 3 reps requiring CG - Min A. Physical Therapy Plan Frequency and Duration Frequency of Treatment 2x/Week Plan of Care Start Date 04/16/21 Plan of Care End Date 07/15/21 Therapeutic Interventions Therapeutic Interventions Balance Training,Coordination Training,Gait Training,Home Exercise Program,Manual Therapy,Neuromuscular Re- education,Patient/Caregiver Education,Self-Care/Home Management,Therapeutic Activities,Therapeutic Exercises Modalities Cold Pack/Ice Massage,Hot Packs Next Visit Focus/Plan Next Note Type Treatment Note Next Visit Plan Assess response to balance during sport cord last tx. POC: assess standing reach. Focus on gait for pt to walk [place] & balance for safe gait. Also, continue stand step pivot transfers, sit to stands for speed and endurance, and standing core strengthening to assist balance recovery. POC: tandem/scissor stance balance LLE posterior, seated trunk flexion TB (Physical Therapy only). Improve turning for TUG with QC. POC: Trunk strengthening (R SB , R rot, and trunk flex/ext) add to HEP only if spouse willing to guard pt. Cont Sit to stand to improve speed and control (Check 5TSTS test). Progress Gait training w/o AD and safely (100+ feet goal) and goal to improve endurance (Check TUG with QC). Continue focus on improving balance and safety with gait and endurance of sit to stand speed with controlled descent w/out UE support, aerobic tolerance/strength and gait with QC, balance training in mirror, postural training, LLE (ankles, hips & ecc knee) strengthening, (monitor IV/EV strengthening) movements, and progression in HEP.
--- NOTE | 2021-05-31 14:34 | PT.OTN ---
Current Diagnoses Muscle weakness (generalized) (05/31/21) Difficulty in walking, not elsewhere classified (05/31/21) Abnormal posture (05/31/21) Other symptoms and signs involving the nervous system (05/31/21) Physical Therapy Treatment Note PT-OP-A Visit Information Start: 01/31/21 17:56 Freq: Status: Active Protocol: Document 05/31/21 13:47 SP (Rec: 05/31/21 16:24 SP [id number]) Out-Patient Physical Therapy Visit Information Visit Information Visit Type Treatment Note Visit Start Time 13:47 Visit Stop Time 14:34 Total Visit Minutes 47 Visit Number 32 Number of DIATHERMY EQUIPMENT REPAIRER Visits 2 Evaluation Information Evaluation Date 02/04/21 Precautions Precautions 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 PT-OP-B Current Condition Start: 01/31/21 17:56 Freq: Status: Active Protocol: Document 02/04/21 08:18 LRN (Rec: 02/04/21 09:07 LRN [id number]) Current Condition History of Current Condition Onset Date November 2019 Current Complaints Having to use walker to walk. 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 In hospital 3-4 days, transferred to [facility] in [place] (penitentiary) and found PT to not be helpful, then home health care after 14 days of quarrentine after catching COVID. Had home health PT for 3 months. Now seeking outpatient PT independently. States she needs help walking without a walker. Have fallen a few times immediately after returning home, due to weak L leg. Doesn't have feeling in feet and has sharp pains in feet; therefore on Gabapentin. Uses topical CBD cream that helps a little. During the day and while walking around, no pain. Pain in feet is mainly at night when trying to go to sleep, or sitting watching TV. Prior Treatments and Tests Few years ago had PT for neuropathy. Has treadmill at home that she uses sometimes. Treatment Goals Patient/Caregiver Goals Pt goal is to be able to walk without a walker using a cane, improve endurance and balance and pt agreeable to being placed on a HEP at discharge. 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 Had to sit on bench to rest. Baseline Function- Other Up/down steps using 2 railings . Current Functional Impairments (Reported) Functional Limitations- ADL's Ambs around home occasioinally without walker (kitchen to living room, living room to laudry room and bathrrom). Walks on deck with FWW. Functional Limitations- Mobility/Gait Ambulates with FWW independently. 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 Can go up/down steps using 2 railings. Personal Factors Other Personal Factors That May Effect Neuropathy of the feet. Therapy/Recovery PT-OP-C Subjective Start: 01/31/21 17:56 Freq: Status: Active Protocol: Document 05/31/21 13:47 SP (Rec: 05/31/21 16:24 SP [id number]) OP-PT Subjective Patient Comments Patient Comments Pt states PT-OP-D Balance Start: 01/31/21 17:56 Freq: Status: Active Protocol: Document 05/31/21 13:47 SP (Rec: 05/31/21 16:24 SP [id number]) Balance Tests Functional Reach Functional Reach Test 6inches Functional Reach Impairment Rating 40 to <60% Impaired (Score 5-6 ) PT-OP-E Functional Tests Start: 01/31/21 17:56 Freq: Status: Active Protocol: Document 05/31/21 13:47 SP (Rec: 05/31/21 16:24 SP [id number]) Functional Tests Five Times Sit to Stand Test Score 21s, 18s, 16s Comments cued for wt shift forward w/ hip hinge, slow descent ( initial was 16 s) Timed Up and Go (TUG) Score 34s, 45s, 47s Comments cued step pivot closer to chair, hip hinge slow descent sit chair TUG Impairment Rating 100% Impaired (Score 20) PT-OP-G Mobility & Gait Start: 01/31/21 17:56 Freq: Status: Active Protocol: Document 02/04/21 08:18 LRN (Rec: 02/04/21 09:07 LRN [id number]) OP Gait Assessment Gait Gait Assistance Required: Independent Distance (Feet) 100 Able to Maintain Weight Bearing Status Yes During Gait Assistive Devices Assistive Device Front Wheeled Walker Gait Deviations General Gait Pattern Decreased Stride Length,Flexed Trunk,Lateral Trunk Lean, Narrow Based Gait,Step-to Gait Factors Limiting Gait Function Factors Limiting Gait Function Decreased Activity Tolerance, Decreased Strength,Poor Balance PT-OP-J Posture/Palpation/Skin Start: 01/31/21 17:56 Freq: Status: Active Protocol: Document 02/04/21 08:18 LRN (Rec: 02/04/21 09:07 LRN [id number]) Posture Evaluation Position Standing Head/C-Spine Posture Forward Head T-Spine Posture Increased Kyphosis L-Spine Posture Flattened Shoulder Posture (L) Elevated Pelvis Posture Anteriorly Tilted,Posterior Tilted Weight Distribution Weight Shifted Right Knee Posture (L) Genu Valgus,(R) Genu Valgus Comments Posture Comments Foot deformity FB at hips ~35 deg's, L hip retracted. PT-OP-M Strength Start: 01/31/21 17:56 Freq: Status: Active Protocol: Document 02/04/21 08:18 LRN (Rec: 02/04/21 09:07 LRN [id number]) Hip Strength Hip Manual Muscle Testing Right Flexion (L2) 5 Normal Left Flexion (L2) 4 Good Knee Strength Knee Manual Muscle Testing Right Comments Generally 5/5 Left Comments Generally 5/5 Ankle/Foot Strength Ankle and Foot Manual Muscle Testing Right Comments Generally 5/5 Left Inversion 3 Fair Comments L foot deformity limiting IV mobility. PT-OP-Q Treatments Start: 01/31/21 17:56 Freq: Status: Active Protocol: Document 05/31/21 13:47 SP (Rec: 05/31/21 16:24 SP [id number]) Gait Training Gait Activity Gait w/o AD Description Gait on level w/CGA/GB Device Used None Level of Assistance CGA Surface Level Distance/Duration 170 ft Treatment Focus Endurance/safety Comments Pt forward gait, improved arm swing, cued L knee extension during midstance, heel toe and LLE foot clearance, 4 stopped rests, when returns pivot front chair tends to retro lean Min A, cued walk closer to chair fully step back LLE to chair then hip hinge, eccentric sit to chair CGA. Neuro Re-Education Treatment Balance Activities TUG Details 3 trials: see testing Comments 1. 34 sec- LOB retro during pivot Max A recover 2. 45 sec- CGA improved b balance during pivot CGA, cues for body step pivot 3. 47 sec- min cues for LLE fully back to chair pre sit- CGA Transfer stability sit<>stand Details Sit<>Stand with stability gained after movement Surface Level Equipment GB/No use of UE's or AD Reps/Duration multiple reps between 2 chairs , 25 min Comments cued for walk all way to front chair then pivot and back up, feel chair behind B knees then hip hinge with good slow descent to chair w/out arms. LOB during Tug Test requiring Max A recovery 1st rep, Required 25% A> 15%A, 10%A> 5% A with max cues not retro lean backing up. Better turning to L than R. PT-OP-T Assessment and Plan Start: 01/31/21 17:56 Freq: Status: Active Protocol: Document 05/31/21 13:47 SP (Rec: 05/31/21 16:24 SP [id number]) Physical Therapy Assessment Goals Four Impairment Decreased endurance (30 sec sit to stand - 9 reps; 5TSTS = 15.7 secs) Short Term Goal (STG) Improve 5TSTS TO 12.6 secs ( Norm for 80-89 yo is 14.8 sec' s) 02/21/21: progressin reps in 16 sec. 03/08/21: 5 reps 19 sec ( moderate retro lean x1 self recovery quick sit into chair no UE support). (03/11/21: 17 secs with good control w/o use of hands) 04/02/21: 15.15 sec 04/09/21: 13 sec. 05/06/21: 16 sec 05/31/21: 16 sec STG Duration 03/08/21 (05/31/21: progressing ) Cambering Machine Operator Goal (LTG) Improve 30 sit to stand to 10- 15 reps (norm for ages 75-79 is 10-15 reps) 02/21/21: progressin.5 reps in 30 sec. 03/01/21: progressing 10 reps in 30 sec today. 03/08/21: 12 reps in 30 sec no UE support- 1 retro lean quick descent self recovery. 04/02/21: 12 reps arms across chest, stable. LTG Duration 05/05/21 (03/08/21: MET GOAL) Three Impairment Decreased Balance per ARRIETA score of 18 (60<80% impaired) Short Term Goal (STG) Improve standing reach (5 or more safely), and ability to stand and look behind without loss of balance. 03/08/21: porgressing: able to reach 5 outside PAULO without LOB. 04/02/21: 7 outside PAULO forward 05/31/21: 7 outside PAULO. STG Duration 03/22/21 (03/08/21: GOAL MET) Cambering Machine Operator Goal (LTG) ARRIETA balance score of 34-44 ( 20<40% impaired) 03/08/21: - still high risk for falls. 04/05/21: - 40-59% impaired, moderate risk for falls LTG Duration 05/05/21 (04/05/21: Progressing) Two Impairment Decreased gait with need of FWW for safety (Tinetti 13 = high fall risk) Short Term Goal (STG) Overall Tinetti score 23-27 (1 <20% impaired) or score 19-24 (medium fall risk, <14 high fall) risk). 02/21/21: progressing , high risk for falls. 03/08/21: 09/17, high risk for falls. 03/11/21: Tinetti score is 18 (20<40% impaired) high risk for falls. 04/02/21: Moderate risk for falls (1-20% impaired). 04/26/21: Tinetti Balance score = 11 (Initial was 6, on was 10) 05/17/21: Tinetti balance score = 8/16 (last assessed 04/26/21 was 11/16). STG Duration 03/22/21 (05/17/21: Tinetti Balance declined ) Alf Goal (LTG) Pt will be able to walk without a cane safely 100' or more. 03/08/21: progressing: gait 152 ft using QC required stand rest for recovery 10-15 sec, provided SBA w/ gait belt for safety. 04/02/21: Completed 6MWT in 152ft requiring 3 x3 sec brief stop stand rests for recovery . 04/09/21: completed 6MWT in 192 .5 ft w/ QC with improved more fluid 3 pt patterning. 04/16/21: Gait 150' w QC, 1 standing rest with 4 episodes of increased sway and pt able to maintain balance x 3. 05/10/21:progressing: Therapy and pt has been practicing at home with using GB for safeyt gait without AD on deck with improved foot clearance and initiating arm swing 158 ft this tx CGA. 05/31/21: progressing able to walk 170 ft without AD, CGA with 4 stopped rests contact rail for recovery support. LTG Duration 05/05/21 (05/31/21: Progressing) One Impairment Lacks appropriate HEP. Short Term Goal (STG) Improve ABC score 41-60 (40<60 % impaired). Eval score is 10 .62. 02/26/21: 31% 03/08/21: 71.875 % 04/16/21: 43% of self confidence STG Duration 03/22/21 (04/16/21: MET GOAL) Alf Goal (LTG) Pt will be independent with a self care HEP to promote improving LE strength and balance. 03/05/21 HEP: ankle PF&EV TB, LAQ TB , posture scap squeeze w/ shld ER TB, heel toe walking, self STMs to calf/ quad/HS, eccentric HS curl TB, coordination foot ruano/ ankle IV/EV side taps/. 05/17/21: progressing: pt requires mod- Max cuing for setup and proper form usign hand outs for ankle TB strengthening EV, DF to assist increase LLE foot clearance during gait. LTG Duration 05/05/21 (04/2721: progressing) Assessment Summary Assessment Pt had difficulty with timed TUG unsteady during pivot to R , LOB retro x1 required max A for recovery, Min A few reps, Spent extra time focusing on repetitive safe transfer training ataxic and very nervous during pivot prior to sitting, cued fully step back L>R Le to allow appromiation to chair and slow descent to sit to reduce risk for falls. Pt states is frustrated wants to continue PT because she is unsafe with transfers and not met her personal goal but the testing doesn't show the effort putting forth to improve. DIATHERMY EQUIPMENT REPAIRER discussed performs better with slower pacing, evidence base testing is speed doing activity assessments and she isn't progressing in this respect. Over all has improved since started therapy and able to progress gait without AD short distance at home wiht CGA for carryover. Physical Therapy Plan Frequency and Duration Frequency of Treatment 2x/Week Plan of Care Start Date 04/16/21 Plan of Care End Date 07/15/21 Therapeutic Interventions Therapeutic Interventions Balance Training,Coordination Training,Gait Training,Home Exercise Program,Manual Therapy,Neuromuscular Re- education,Patient/Caregiver Education,Self-Care/Home Management,Therapeutic Activities,Therapeutic Exercises Modalities Cold Pack/Ice Massage,Hot Packs Next Visit Focus/Plan Next Note Type Treatment Note Next Visit Plan Assess response to STS, TUG, standing reach testing gait without AD last tx. POC: Focus on gait for pt to walk [place] & balance for safe gait. Also, continue stand step pivot transfers, sit to stands for speed and endurance, and standing core strengthening to assist balance recovery. POC: tandem/scissor stance balance LLE posterior, seated trunk flexion TB (Physical Therapy only). Improve turning for TUG with QC. POC: Trunk strengthening (R SB , R rot, and trunk flex/ext) add to HEP only if spouse willing to guard pt. Cont Sit to stand to improve speed and control (Check 5TSTS test). Progress Gait training w/o AD and safely (100+ feet goal) and goal to improve endurance (Check TUG with QC). Continue focus on improving balance and safety with gait and endurance of sit to stand speed with controlled descent w/out UE support, aerobic tolerance/strength and gait with QC, balance training in mirror, postural training, LLE (ankles, hips & ecc knee) strengthening, (monitor IV/EV strengthening) movements, and progression in HEP.
--- NOTE | 2021-06-04 16:30 | PT.OTN ---
Current Diagnoses Muscle weakness (generalized) (06/04/21) Difficulty in walking, not elsewhere classified (06/04/21) Abnormal posture (06/04/21) Other symptoms and signs involving the nervous system (06/04/21) Physical Therapy Treatment Note PT-OP-A Visit Information Start: 01/31/21 17:56 Freq: Status: Active Protocol: Document 06/04/21 14:17 LRN (Rec: 06/04/21 15:06 LRN [id number]) Out-Patient Physical Therapy Visit Information Visit Information Visit Type Treatment Note Visit Start Time 14:17 Visit Stop Time 14:57 Total Visit Minutes 40 Visit Number 33 Evaluation Information Evaluation Date 02/04/21 Precautions Precautions 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 PT-OP-B Current Condition Start: 01/31/21 17:56 Freq: Status: Active Protocol: Document 02/04/21 08:18 LRN (Rec: 02/04/21 09:07 LRN [id number]) Current Condition History of Current Condition Onset Date November 2019 Current Complaints Having to use walker to walk. 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 In hospital 3-4 days, transferred to [facility] in [place] (correction) and found PT to not be helpful, then home health care after 14 days of quarrentine after catching COVID. Had home health PT for 3 months. Now seeking outpatient PT independently. States she needs help walking without a walker. Have fallen a few times immediately after returning home, due to weak L leg. Doesn't have feeling in feet and has sharp pains in feet; therefore on Gabapentin. Uses topical CBD cream that helps a little. During the day and while walking around, no pain. Pain in feet is mainly at night when trying to go to sleep, or sitting watching TV. Prior Treatments and Tests Few years ago had PT for neuropathy. Has treadmill at home that she uses sometimes. Treatment Goals Patient/Caregiver Goals Pt goal is to be able to walk without a walker using a cane, improve endurance and balance and pt agreeable to being placed on a HEP at discharge. 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 Had to sit on bench to rest. Baseline Function- Other Up/down steps using 2 railings . Current Functional Impairments (Reported) Functional Limitations- ADL's Ambs around home occasioinally without walker (kitchen to living room, living room to laudry room and bathrrom). Walks on deck with FWW. Functional Limitations- Mobility/Gait Ambulates with FWW independently. 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 Can go up/down steps using 2 railings. Personal Factors Other Personal Factors That May Effect Neuropathy of the feet. Therapy/Recovery PT-OP-C Subjective Start: 01/31/21 17:56 Freq: Status: Active Protocol: Document 06/04/21 14:17 LRN (Rec: 06/04/21 15:06 LRN [id number]) OP-PT Subjective Patient Comments Patient Comments Has been walking around the house all day today and has partially been doing it for ~2 weeks. PT-OP-D Balance Start: 01/31/21 17:56 Freq: Status: Active Protocol: Document 05/31/21 13:47 SP (Rec: 05/31/21 16:24 SP [id number]) Balance Tests Functional Reach Functional Reach Test 6inches Functional Reach Impairment Rating 40 to <60% Impaired (Score 5-6 ) PT-OP-E Functional Tests Start: 01/31/21 17:56 Freq: Status: Active Protocol: Document 05/31/21 13:47 SP (Rec: 05/31/21 16:24 SP [id number]) Functional Tests Five Times Sit to Stand Test Score 21s, 18s, 16s Comments cued for wt shift forward w/ hip hinge, slow descent ( initial was 16 s) Timed Up and Go (TUG) Score 34s, 45s, 47s Comments cued step pivot closer to chair, hip hinge slow descent sit chair TUG Impairment Rating 100% Impaired (Score 20) PT-OP-G Mobility & Gait Start: 01/31/21 17:56 Freq: Status: Active Protocol: Document 02/04/21 08:18 LRN (Rec: 02/04/21 09:07 LRN [id number]) OP Gait Assessment Gait Gait Assistance Required: Independent Distance (Feet) 100 Able to Maintain Weight Bearing Status Yes During Gait Assistive Devices Assistive Device Front Wheeled Walker Gait Deviations General Gait Pattern Decreased Stride Length,Flexed Trunk,Lateral Trunk Lean, Narrow Based Gait,Step-to Gait Factors Limiting Gait Function Factors Limiting Gait Function Decreased Activity Tolerance, Decreased Strength,Poor Balance PT-OP-J Posture/Palpation/Skin Start: 01/31/21 17:56 Freq: Status: Active Protocol: Document 02/04/21 08:18 LRN (Rec: 02/04/21 09:07 LRN [id number]) Posture Evaluation Position Standing Head/C-Spine Posture Forward Head T-Spine Posture Increased Kyphosis L-Spine Posture Flattened Shoulder Posture (L) Elevated Pelvis Posture Anteriorly Tilted,Posterior Tilted Weight Distribution Weight Shifted Right Knee Posture (L) Genu Valgus,(R) Genu Valgus Comments Posture Comments Foot deformity FB at hips ~35 deg's, L hip retracted. PT-OP-M Strength Start: 01/31/21 17:56 Freq: Status: Active Protocol: Document 02/04/21 08:18 LRN (Rec: 02/04/21 09:07 LRN [id number]) Hip Strength Hip Manual Muscle Testing Right Flexion (L2) 5 Normal Left Flexion (L2) 4 Good Knee Strength Knee Manual Muscle Testing Right Comments Generally 5/5 Left Comments Generally 5/5 Ankle/Foot Strength Ankle and Foot Manual Muscle Testing Right Comments Generally 5/5 Left Inversion 3 Fair Comments L foot deformity limiting IV mobility. PT-OP-Q Treatments Start: 01/31/21 17:56 Freq: Status: Active Protocol: Document 06/04/21 14:17 LRN (Rec: 06/04/21 15:06 LRN [id number]) Therapeutic Exercises Standing Exercises Trunk SB Standing Exercise Name Active trunk SB Side bilateral Reps/Minutes 10x each Comments Much phys & v cuing for pt to 50% of the time perform properly Side stepping Standing Exercise Name Side stepping Side bilateral Equipment Used Lev 1 TB Reps/Minutes 3' Comments phys cuing for stepping with LLE. Trunk rotation Standing Exercise Name Trunk rot (clasp hands front w / band, elbows tucked into sides) Side bilateral Resistance Lev 2 TB/GB/ CGA Equipment Used chair close behind Reps/Minutes 2x15 reps Comments seated rests between sets sit <> stands Standing Exercise Name Sit<>Stand Reps/Minutes 10x Comments Pt cued to not use chair for support behind the knees Gait Training Gait Activity Gait w/o AD Description Gait on level w/CGA/GB Device Used None Level of Assistance CGA while holding gait belt end Surface Level Distance/Duration 123 ft + 110 ft + 110 ft. Treatment Focus Endurance/safety Comments Pt forward gait, improved arm swing, cued L knee extension during midstance, heel toe and LLE foot clearance, 1 stopped rest between bouts, when returned, pt properly balanced and sat. Neuro Re-Education Treatment Balance Activities TUG Details Gait with GB and SBA Comments 1. 65 secs. Gait with QC and step to gait. 2. 36 secs. Gait w/o assist device. PT-OP-T Assessment and Plan Start: 01/31/21 17:56 Freq: Status: Active Protocol: Document 06/04/21 14:17 LRN (Rec: 06/04/21 15:06 LRN [id number]) Physical Therapy Assessment Goals Four Impairment Decreased endurance (30 sec sit to stand - 9 reps; 5TSTS = 15.7 secs) Short Term Goal (STG) Improve 5TSTS TO 12.6 secs ( Norm for 80-89 yo is 14.8 sec' s) 02/21/21: progressin reps in 16 sec. 03/08/21: 5 reps 19 sec ( moderate retro lean x1 self recovery quick sit into chair no UE support). (03/11/21: 17 secs with good control w/o use of hands) 04/02/21: 15.15 sec 04/09/21: 13 sec. 05/06/21: 16 sec 05/31/21: 16 sec STG Duration 03/08/21 (05/31/21: progressing ) Longterm Goal (LTG) Improve 30 sit to stand to 10- 15 reps (norm for ages 75-79 is 10-15 reps) 02/21/21: progressin.5 reps in 30 sec. 03/01/21: progressing 10 reps in 30 sec today. 03/08/21: 12 reps in 30 sec no UE support- 1 retro lean quick descent self recovery. 04/02/21: 12 reps arms across chest, stable. LTG Duration 05/05/21 (03/08/21: MET GOAL) Three Impairment Decreased Balance per ARRIETA score of 18 (60<80% impaired) Short Term Goal (STG) Improve standing reach (5 or more safely), and ability to stand and look behind without loss of balance. 03/08/21: porgressing: able to reach 5 outside PAULO without LOB. 04/02/21: 7 outside PAULO forward 05/31/21: 7 outside PUALO. STG Duration 03/22/21 (03/08/21: GOAL MET) Longterm Goal (LTG) ARRIETA balance score of 34-44 ( 20<40% impaired) 03/08/21: 23/56- still high risk for falls. 04/05/21: 32/56- 40-59% impaired, moderate risk for falls LTG Duration 05/05/21 (04/05/21: Progressing) Two Impairment Decreased gait with need of FWW for safety (Tinetti 13 = high fall risk) Short Term Goal (STG) Overall Tinetti score 23-27 (1 <20% impaired) or score 19-24 (medium fall risk, <14 high fall) risk). 02/21/21: progressing , high risk for falls. 03/08/21: 09/17, high risk for falls. 03/11/21: Tinetti score is 18 (20<40% impaired) high risk for falls. 04/02/21: Moderate risk for falls (1-20% impaired). 04/26/21: Tinetti Balance score = 11 (Initial was 6, on was 10) 05/17/21: Tinetti balance score = 8/16 (last assessed 04/26/21 was 11/16). STG Duration 03/22/21 (05/17/21: Tinetti Balance declined ) Porter Luggage Goal (LTG) Pt will be able to walk without a cane safely 100' or more. 03/08/21: progressing: gait 152 ft using QC required stand rest for recovery 10-15 sec, provided SBA w/ gait belt for safety. 04/02/21: Completed 6MWT in 152ft requiring 3 x3 sec brief stop stand rests for recovery . 04/09/21: completed 6MWT in 192 .5 ft w/ QC with improved more fluid 3 pt patterning. 04/16/21: Gait 150' w QC, 1 standing rest with 4 episodes of increased sway and pt able to maintain balance x 3. 05/10/21:progressing: Therapy and pt has been practicing at home with using GB for safeyt gait without AD on deck with improved foot clearance and initiating arm swing 158 ft this tx CGA. 05/31/21: progressing able to walk 170 ft without AD, CGA with 4 stopped rests contact rail for recovery support. (06/04/21: Pt walked 123' during first pass without assistive device and no loss of balance, slow gait) LTG Duration 05/05/21 (06/04/21: MET GOAL) One Impairment Lacks appropriate HEP. Short Term Goal (STG) Improve ABC score 41-60 (40<60 % impaired). Eval score is 10 .62. 02/26/21: 31% 03/08/21: 71.875 % 04/16/21: 43% of self confidence STG Duration 03/22/21 (04/16/21: MET GOAL) Longterm Goal (LTG) Pt will be independent with a self care HEP to promote improving LE strength and balance. 03/05/21 HEP: ankle PF&EV TB, LAQ TB , posture scap squeeze w/ shld ER TB, heel toe walking, self STMs to calf/ quad/HS, eccentric HS curl TB, coordination foot ruano/ ankle IV/EV side taps/. 05/17/21: progressing: pt requires mod- Max cuing for setup and proper form usign hand outs for ankle TB strengthening EV, DF to assist increase LLE foot clearance during gait. LTG Duration 05/05/21 (04/2721: progressing) Assessment Summary Assessment Pt did well with gait, with only 2 partial LOB episodes that pt was able to recover. Pt had LOB episodes during trunk strengthening; possibly due to fatigue. Gait is good without use of QC with occasionally recovered LOB episodes. Physical Therapy Plan Frequency and Duration Frequency of Treatment 2x/Week Plan of Care Start Date 04/16/21 Plan of Care End Date 07/15/21 Next Visit Focus/Plan Next Note Type Treatment Note Next Visit Plan Assess standing reach test, check 5xSTS and increase speed . POC: Focus on gait for pt to walk [place] & balance for safe gait. Also, continue stand step pivot transfers, sit to stand transfer speed, and standing core strengthening to assist balance recovery. POC: tandem/scissor stance balance LLE posterior, turning balance /stability. CONT: seated trunk flexion TB (Physical Therapy only). POC: Trunk strengthening (R SB , R rot, and trunk flex/ext) add to HEP only if spouse willing to guard pt. Cont Sit to stand to improve speed and control (Check 5TSTS test). Continue focus on improving balance and safety with gait and endurance of sit to stand speed with controlled descent w/out UE support, aerobic tolerance/strength and gait with QC, balance training in mirror, postural training, LLE (ankles, hips & ecc knee) strengthening, (monitor IV/EV strengthening) movements, and progression in HEP.
--- NOTE | 2021-06-07 16:47 | PT.OTN ---
Current Diagnoses Muscle weakness (generalized) (06/07/21) Difficulty in walking, not elsewhere classified (06/07/21) Abnormal posture (06/07/21) Other symptoms and signs involving the nervous system (06/07/21) Physical Therapy Treatment Note PT-OP-A Visit Information Start: 01/31/21 17:56 Freq: Status: Active Protocol: Document 06/07/21 13:37 LRN (Rec: 06/07/21 14:23 LRN [id number]) Out-Patient Physical Therapy Visit Information Visit Information Visit Type Treatment Note Visit Start Time 13:37 Visit Stop Time 14:17 Total Visit Minutes 40 Visit Number 34 Evaluation Information Evaluation Date 02/04/21 Precautions Precautions 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 PT-OP-B Current Condition Start: 01/31/21 17:56 Freq: Status: Active Protocol: Document 02/04/21 08:18 LRN (Rec: 02/04/21 09:07 LRN [id number]) Current Condition History of Current Condition Onset Date November 2019 Current Complaints Having to use walker to walk. 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 In hospital 3-4 days, transferred to [facility] in [place] (skilled nursing) and found PT to not be helpful, then home health care after 14 days of quarrentine after catching COVID. Had home health PT for 3 months. Now seeking outpatient PT independently. States she needs help walking without a walker. Have fallen a few times immediately after returning home, due to weak L leg. Doesn't have feeling in feet and has sharp pains in feet; therefore on Gabapentin. Uses topical CBD cream that helps a little. During the day and while walking around, no pain. Pain in feet is mainly at night when trying to go to sleep, or sitting watching TV. Prior Treatments and Tests Few years ago had PT for neuropathy. Has treadmill at home that she uses sometimes. Treatment Goals Patient/Caregiver Goals Pt goal is to be able to walk without a walker using a cane, improve endurance and balance and pt agreeable to being placed on a HEP at discharge. 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 Had to sit on bench to rest. Baseline Function- Other Up/down steps using 2 railings . Current Functional Impairments (Reported) Functional Limitations- ADL's Ambs around home occasioinally without walker (kitchen to living room, living room to laudry room and bathrrom). Walks on deck with FWW. Functional Limitations- Mobility/Gait Ambulates with FWW independently. 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 Can go up/down steps using 2 railings. Personal Factors Other Personal Factors That May Effect Neuropathy of the feet. Therapy/Recovery PT-OP-C Subjective Start: 01/31/21 17:56 Freq: Status: Active Protocol: Document 06/07/21 13:37 LRN (Rec: 06/07/21 14:23 LRN [id number]) OP-PT Subjective Patient Comments Patient Comments Requests review of ankle ex's. Has been walking around the house. PT-OP-D Balance Start: 01/31/21 17:56 Freq: Status: Active Protocol: Document 06/07/21 13:37 LRN (Rec: 06/07/21 16:47 LRN [id number]) Balance Tests Functional Reach Functional Reach Test 6 Functional Reach Impairment Rating 40 to <60% Impaired (Score 5-6 ) PT-OP-E Functional Tests Start: 01/31/21 17:56 Freq: Status: Active Protocol: Document 06/07/21 13:37 LRN (Rec: 06/07/21 14:23 LRN [id number]) Functional Tests Five Times Sit to Stand Test Score 14 sec Comments cued for wt shift forward w/ hip hinge, slow descent ( initial was 16 s) PT-OP-G Mobility & Gait Start: 01/31/21 17:56 Freq: Status: Active Protocol: Document 02/04/21 08:18 LRN (Rec: 02/04/21 09:07 LRN [id number]) OP Gait Assessment Gait Gait Assistance Required: Independent Distance (Feet) 100 Able to Maintain Weight Bearing Status Yes During Gait Assistive Devices Assistive Device Front Wheeled Walker Gait Deviations General Gait Pattern Decreased Stride Length,Flexed Trunk,Lateral Trunk Lean, Narrow Based Gait,Step-to Gait Factors Limiting Gait Function Factors Limiting Gait Function Decreased Activity Tolerance, Decreased Strength,Poor Balance PT-OP-J Posture/Palpation/Skin Start: 01/31/21 17:56 Freq: Status: Active Protocol: Document 02/04/21 08:18 LRN (Rec: 02/04/21 09:07 LRN [id number]) Posture Evaluation Position Standing Head/C-Spine Posture Forward Head T-Spine Posture Increased Kyphosis L-Spine Posture Flattened Shoulder Posture (L) Elevated Pelvis Posture Anteriorly Tilted,Posterior Tilted Weight Distribution Weight Shifted Right Knee Posture (L) Genu Valgus,(R) Genu Valgus Comments Posture Comments Foot deformity FB at hips ~35 deg's, L hip retracted. PT-OP-M Strength Start: 01/31/21 17:56 Freq: Status: Active Protocol: Document 02/04/21 08:18 LRN (Rec: 02/04/21 09:07 LRN [id number]) Hip Strength Hip Manual Muscle Testing Right Flexion (L2) 5 Normal Left Flexion (L2) 4 Good Knee Strength Knee Manual Muscle Testing Right Comments Generally 5/5 Left Comments Generally 5/5 Ankle/Foot Strength Ankle and Foot Manual Muscle Testing Right Comments Generally 5/5 Left Inversion 3 Fair Comments L foot deformity limiting IV mobility. PT-OP-Q Treatments Start: 01/31/21 17:56 Freq: Status: Active Protocol: Document 06/07/21 13:37 LRN (Rec: 06/07/21 14:23 LRN [id number]) Therapeutic Exercises Sitting Exercises trunk flexion Sitting Exercise Name Trunk Flex (ex for in PT only) Resistance Lev 2 TB Reps/Minutes 30x Comments V cuing for pt to breath w/ex and to contorl movement L ankle DF Sitting Exercise Name Ankle DF strengthening Side bilateral Reps/Minutes 30x L ankle ROM/ TB Sitting Exercise Name Ankle EV/IV strengthening Side bilateral Reps/Minutes 30x IV, 30x 2 EV (2 different TBand positions) Standing Exercises Trunk rotation Standing Exercise Name Trunk rot (clasp hands front w / band, elbows tucked into sides) Side bilateral Resistance Lev 2 TB/GB/ CGA Equipment Used chair close behind Reps/Minutes 2x15 reps Comments seated rests between sets sit <> stands Standing Exercise Name Sit<>Stand Reps/Minutes 10x Comments Pt cued to not use chair for support behind the knees Gait Training Gait Activity Gait w/o AD Description Gait on level w/CGA/GB Device Used None Level of Assistance CGA while holding gait belt end Surface Level Distance/Duration 160 ft + 163 ft +23 ft. Treatment Focus Endurance/safety Comments Pt forward gait, improved arm swing, cued L knee extension during midstance, heel toe and LLE foot clearance, 1 stopped rest between bouts, when returned, pt properly balanced and sat. Neuro Re-Education Treatment Balance Activities dmitriy stepping Details forward Equipment 6 hurdles Reps/Duration 10 ft x 1 laps Comments Alexy with gradual lessening of assist with each dmitriy. PT-OP-T Assessment and Plan Start: 01/31/21 17:56 Freq: Status: Active Protocol: Document 06/07/21 13:37 LRN (Rec: 06/07/21 14:23 LRN [id number]) Physical Therapy Assessment Goals Four Impairment Decreased endurance (30 sec sit to stand - 9 reps; 5TSTS = 15.7 secs) Short Term Goal (STG) Improve 5TSTS TO 12.6 secs ( Norm for 80-89 yo is 14.8 sec' s) 02/21/21: progressin reps in 16 sec. 03/08/21: 5 reps 19 sec ( moderate retro lean x1 self recovery quick sit into chair no UE support). (With good control w/o use of hands: 03/11/21: 17 secs, 04/02/21: 15.15 secs, 04/09/21 : 13 secs. 05/06/21: 16 secs, 05/31/21: 16 sec, 06/07/21: 14 secs) STG Duration 03/08/21 (06/07/21: progressing ) Correction Goal (LTG) Improve 30 sit to stand to 10- 15 reps (norm for ages 75-79 is 10-15 reps) 02/21/21: progressin.5 reps in 30 sec. 03/01/21: progressing 10 reps in 30 sec today. 03/08/21: 12 reps in 30 sec no UE support- 1 retro lean quick descent self recovery. 04/02/21: 12 reps arms across chest, stable. LTG Duration 05/05/21 (03/08/21: MET GOAL) Three Impairment Decreased Balance per ARRIETA score of 18 (60<80% impaired) Short Term Goal (STG) Improve standing reach (5 or more safely), and ability to stand and look behind without loss of balance. 03/08/21: porgressing: able to reach 5 outside PAULO without LOB. 05/31/21: 7 outside PAULO. 06/07/21: Standing reach is 6 STG Duration 03/22/21 (03/08/21: GOAL MET) Correction Goal (LTG) ARRIETA balance score of 34-44 ( 20<40% impaired) 03/08/21: - still high risk for falls. 04/05/21: - 40-59% impaired, moderate risk for falls LTG Duration 05/05/21 (04/05/21: Progressing) Two Impairment Decreased gait with need of FWW for safety (Tinetti 13 = high fall risk) Short Term Goal (STG) Overall Tinetti score 23-27 (1 <20% impaired) or score 19-24 (medium fall risk, <14 high fall) risk). 02/21/21: progressing , high risk for falls. 03/08/21: 09/17, high risk for falls. 03/11/21: Tinetti score is 18 (20<40% impaired) high risk for falls. 04/02/21: Moderate risk for falls (1-20% impaired). 04/26/21: Tinetti Balance score = 11 (Initial was 6, on was 10) 05/17/21: Tinetti balance score = 8/16 (last assessed 04/26/21 was 11/16). STG Duration 03/22/21 (05/17/21: Tinetti Balance declined ) Correction Goal (LTG) Pt will be able to walk without a cane safely 100' or more. 03/08/21: progressing: gait 152 ft using QC required stand rest for recovery 10-15 sec, provided SBA w/ gait belt for safety. 04/02/21: Completed 6MWT in 152ft requiring 3 x3 sec brief stop stand rests for recovery . 04/09/21: completed 6MWT in 192 .5 ft w/ QC with improved more fluid 3 pt patterning. 04/16/21: Gait 150' w QC, 1 standing rest with 4 episodes of increased sway and pt able to maintain balance x 3. 05/10/21:progressing: Therapy and pt has been practicing at home with using GB for safeyt gait without AD on deck with improved foot clearance and initiating arm swing 158 ft this tx CGA. 05/31/21: progressing able to walk 170 ft without AD, CGA with 4 stopped rests contact rail for recovery support. (06/04/21: Pt walked 123' during first pass without assistive device and no loss of balance, slow gait) LTG Duration 05/05/21 (06/04/21: MET GOAL) One Impairment Lacks appropriate HEP. Short Term Goal (STG) Improve ABC score 41-60 (40<60 % impaired). Eval score is 10 .62. 02/26/21: 31% 03/08/21: 71.875 % 04/16/21: 43% of self confidence STG Duration 03/22/21 (04/16/21: MET GOAL) Correction Goal (LTG) Pt will be independent with a self care HEP to promote improving LE strength and balance. 03/05/21 HEP: ankle PF&EV TB, LAQ TB , posture scap squeeze w/ shld ER TB, heel toe walking, self STMs to calf/ quad/HS, eccentric HS curl TB, coordination foot ruano/ ankle IV/EV side taps/. 05/17/21: progressing: pt requires mod- Max cuing for setup and proper form usign hand outs for ankle TB strengthening EV, DF to assist increase LLE foot clearance during gait. LTG Duration 05/05/21 (04/2721: progressing) Progress Towards Goals Progress Comments 5X STS improved to 14 secs ( last check was 16 secs, initial was 15.7 secs) Assessment Summary Assessment Pt is improving in endurance with tolerance to walking now up to 160' walks prior to needing a rest. Pt is able to walk without assistive device although requires SBA; therefore further core, ankle and balance ex's needed. Physical Therapy Plan Frequency and Duration Frequency of Treatment 2x/Week Plan of Care Start Date 04/16/21 Plan of Care End Date 07/15/21 Next Visit Focus/Plan Next Note Type Treatment Note Next Visit Plan Assess standing turning to look stability (Goal # 3), monitor 5xSTS and increase speed. ARRIETA assessment. POC: Focus on gait for pt to walk [place] & balance for safe gait. Also, continue stand step pivot transfers, sit to stand transfer speed, and standing core strengthening to assist balance recovery. POC: tandem/scissor stance balance LLE posterior, turning balance /stability. CONT: seated trunk flexion TB (Physical Therapy only). POC: Trunk strengthening (R SB , R rot, and trunk flex/ext) add to HEP only if spouse willing to guard pt. Cont Sit to stand to improve speed and control (Check 5TSTS test). Continue focus on improving balance and safety with gait and endurance of sit to stand speed with controlled descent w/out UE support, aerobic tolerance/strength and gait without AD, balance training in mirror, LLE (ankles, hips & ecc knee) strengthening, ( monitor IV/EV strengthening) movements, and progression in HEP.
--- NOTE | 2021-06-11 16:50 | PT.OTN ---
Current Diagnoses Muscle weakness (generalized) (06/11/21) Difficulty in walking, not elsewhere classified (06/11/21) Abnormal posture (06/11/21) Other symptoms and signs involving the nervous system (06/11/21) Physical Therapy Treatment Note PT-OP-A Visit Information Start: 01/31/21 17:56 Freq: Status: Active Protocol: Document 06/11/21 13:09 LRN (Rec: 06/11/21 15:05 LRN [id number]) Out-Patient Physical Therapy Visit Information Visit Information Visit Type Treatment Note Visit Start Time 14:15 Visit Stop Time 15:02 Total Visit Minutes 47 Visit Number 35 Evaluation Information Evaluation Date 02/04/21 Precautions Precautions 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 PT-OP-B Current Condition Start: 01/31/21 17:56 Freq: Status: Active Protocol: Document 02/04/21 08:18 LRN (Rec: 02/04/21 09:07 LRN [id number]) Current Condition History of Current Condition Onset Date November 2019 Current Complaints Having to use walker to walk. 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 In hospital 3-4 days, transferred to [facility] in [place] (alf) and found PT to not be helpful, then home health care after 14 days of quarrentine after catching COVID. Had home health PT for 3 months. Now seeking outpatient PT independently. States she needs help walking without a walker. Have fallen a few times immediately after returning home, due to weak L leg. Doesn't have feeling in feet and has sharp pains in feet; therefore on Gabapentin. Uses topical CBD cream that helps a little. During the day and while walking around, no pain. Pain in feet is mainly at night when trying to go to sleep, or sitting watching TV. Prior Treatments and Tests Few years ago had PT for neuropathy. Has treadmill at home that she uses sometimes. Treatment Goals Patient/Caregiver Goals Pt goal is to be able to walk without a walker using a cane, improve endurance and balance and pt agreeable to being placed on a HEP at discharge. 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 Had to sit on bench to rest. Baseline Function- Other Up/down steps using 2 railings . Current Functional Impairments (Reported) Functional Limitations- ADL's Ambs around home occasioinally without walker (kitchen to living room, living room to laudry room and bathrrom). Walks on deck with FWW. Functional Limitations- Mobility/Gait Ambulates with FWW independently. 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 Can go up/down steps using 2 railings. Personal Factors Other Personal Factors That May Effect Neuropathy of the feet. Therapy/Recovery PT-OP-C Subjective Start: 01/31/21 17:56 Freq: Status: Active Protocol: Document 06/11/21 13:09 LRN (Rec: 06/11/21 15:05 LRN [id number]) OP-PT Subjective Patient Comments Patient Comments Stride is 28, Walked 177' in 6 minutes. States she did sit to stand x 10 in 30 secs. PT-OP-D Balance Start: 01/31/21 17:56 Freq: Status: Active Protocol: Document 06/07/21 13:37 LRN (Rec: 06/07/21 16:47 LRN [id number]) Balance Tests Functional Reach Functional Reach Test 6 Functional Reach Impairment Rating 40 to <60% Impaired (Score 5-6 ) PT-OP-E Functional Tests Start: 01/31/21 17:56 Freq: Status: Active Protocol: Document 06/11/21 13:09 LRN (Rec: 06/11/21 15:05 LRN [id number]) Functional Tests 30 Second Sit to Stand Test Score 13 reps. Other Gait speed Name of Test Gait Speed Score 1.33 ft/sec Comment > 70's = frail = 1.38 ft/sec for women. PT-OP-G Mobility & Gait Start: 01/31/21 17:56 Freq: Status: Active Protocol: Document 02/04/21 08:18 LRN (Rec: 02/04/21 09:07 LRN [id number]) OP Gait Assessment Gait Gait Assistance Required: Independent Distance (Feet) 100 Able to Maintain Weight Bearing Status Yes During Gait Assistive Devices Assistive Device Front Wheeled Walker Gait Deviations General Gait Pattern Decreased Stride Length,Flexed Trunk,Lateral Trunk Lean, Narrow Based Gait,Step-to Gait Factors Limiting Gait Function Factors Limiting Gait Function Decreased Activity Tolerance, Decreased Strength,Poor Balance PT-OP-J Posture/Palpation/Skin Start: 01/31/21 17:56 Freq: Status: Active Protocol: Document 02/04/21 08:18 LRN (Rec: 02/04/21 09:07 LRN [id number]) Posture Evaluation Position Standing Head/C-Spine Posture Forward Head T-Spine Posture Increased Kyphosis L-Spine Posture Flattened Shoulder Posture (L) Elevated Pelvis Posture Anteriorly Tilted,Posterior Tilted Weight Distribution Weight Shifted Right Knee Posture (L) Genu Valgus,(R) Genu Valgus Comments Posture Comments Foot deformity FB at hips ~35 deg's, L hip retracted. PT-OP-M Strength Start: 01/31/21 17:56 Freq: Status: Active Protocol: Document 02/04/21 08:18 LRN (Rec: 02/04/21 09:07 LRN [id number]) Hip Strength Hip Manual Muscle Testing Right Flexion (L2) 5 Normal Left Flexion (L2) 4 Good Knee Strength Knee Manual Muscle Testing Right Comments Generally 5/5 Left Comments Generally 5/5 Ankle/Foot Strength Ankle and Foot Manual Muscle Testing Right Comments Generally 5/5 Left Inversion 3 Fair Comments L foot deformity limiting IV mobility. PT-OP-Q Treatments Start: 01/31/21 17:56 Freq: Status: Active Protocol: Document 06/11/21 13:09 LRN (Rec: 06/11/21 15:05 LRN [id number]) Therapeutic Exercises Sitting Exercises trunk flexion Sitting Exercise Name Trunk Flex (ex for in PT only) Resistance Lev 2 TB Reps/Minutes 30x Comments V cuing for pt to breath w/ex and to control movement, rest after ex Standing Exercises Trunk SB Standing Exercise Name SB Side bilateral Equipment Used Sport cord Green Reps/Minutes 30x each Comments Sit rest needed after ex. Side stepping Standing Exercise Name Side stepping Side bilateral Reps/Minutes 2' Comments Sit rest needed after ex. Trunk rotation Standing Exercise Name Trunk rot (clasp hands front w / band, elbows tucked into sides) Side bilateral Resistance Lev 2 TB/GB/ CGA Equipment Used chair close behind Reps/Minutes 2x15 reps Comments seated rests between sets sit <> stands Standing Exercise Name Sit<>Stand Reps/Minutes 30 STS x 2, 5TSTS x 3 Comments Pt cued to not use chair for support behind the knees. Sit rests needed. Gait Training Gait Activity Gait w/o AD Description Gait on level w/CGA/GB Device Used None Level of Assistance CGA while holding gait belt end Surface Level Distance/Duration 133 ft. + gait during transitions with exercise. Treatment Focus Endurance/safety Comments Pt required sit rest after long gait and between exercises. Self-Care/Home Management Treatment Education Other Education Educated pt in gait speed for: household, limited community, safe community, crossing streets, and if at fall risk. Pt informed she is safe for holusehold and limited community ambulation and that she is at risk of falling per gait speed of 1.3 ft/sec. Discussed concerns of pt walking on [place] path regarding distance and effect of muscle fatigue with gait. PT-OP-T Assessment and Plan Start: 01/31/21 17:56 Freq: Status: Active Protocol: Document 06/11/21 13:09 LRN (Rec: 06/11/21 15:05 LRN [id number]) Physical Therapy Assessment Goals Four Impairment Decreased endurance (30 sec sit to stand - 9 reps; 5TSTS = 15.7 secs) Short Term Goal (STG) Improve 5TSTS TO 12.6 secs ( Norm for 80-89 yo is 14.8 sec' s) 02/21/21: progressin reps in 16 sec. 03/08/21: 5 reps 19 sec ( moderate retro lean x1 self recovery quick sit into chair no UE support). (With good control w/o use of hands: 03/11/21: 17 secs, 04/02/21: 15.15 secs, 04/09/21 : 13 secs. 05/06/21: 16 secs, 05/31/21: 16 sec, 06/07/21: 14 secs) 06/11/21: 10 secs. STG Duration 03/08/21 (06/11/21: MET GOAL) Music Writer Goal (LTG) Improve 30 sit to stand to 10- 15 reps (norm for ages 75-79 is 10-15 reps) 06/11/21: 13 reps in 30 secs. 02/21/21: progressin.5 reps in 30 sec. 03/01/21: progressing 10 reps in 30 sec today. 03/08/21: 12 reps in 30 sec no UE support- 1 retro lean quick descent self recovery. 04/02/21: 12 reps arms across chest, stable. LTG Duration 05/05/21 (03/08/21: MET GOAL) Three Impairment Decreased Balance per ARRIETA score of 18 (60<80% impaired) Short Term Goal (STG) Improve standing reach (5 or more safely), and ability to stand and look behind without loss of balance. 03/08/21: porgressing: able to reach 5 outside PAULO without LOB. 05/31/21: 7 outside PAULO. 06/07/21: Standing reach is 6 STG Duration 03/22/21 (03/08/21: GOAL MET) Music Writer Goal (LTG) ARRIETA balance score of 34-44 ( 20<40% impaired) 03/08/21: 23/56- still high risk for falls. 04/05/21: 32/56- 40-59% impaired, moderate risk for falls LTG Duration 05/05/21 (04/05/21: Progressing) Two Impairment Decreased gait with need of FWW for safety (Tinetti 13 = high fall risk) Short Term Goal (STG) Overall Tinetti score 23-27 (1 <20% impaired) or score 19-24 (medium fall risk, <14 high fall) risk). 02/21/21: progressing , high risk for falls. 03/08/21: 09/17, high risk for falls. 03/11/21: Tinetti score is 18 (20<40% impaired) high risk for falls. 04/02/21: Moderate risk for falls (1-20% impaired). 04/26/21: Tinetti Balance score = 11 (Initial was 6, on was 10) 05/17/21: Tinetti balance score = 8/ (last assessed 04/26/21 was 11/). STG Duration 03/22/21 (05/17/21: Tinetti Balance declined ) Music Writer Goal (LTG) Pt will be able to walk without a cane safely 100' or more. 03/08/21: progressing: gait 152 ft using QC required stand rest for recovery 10-15 sec, provided SBA w/ gait belt for safety. 04/02/21: Completed 6MWT in 152ft requiring 3 x3 sec brief stop stand rests for recovery . 04/09/21: completed 6MWT in 192 .5 ft w/ QC with improved more fluid 3 pt patterning. 04/16/21: Gait 150' w QC, 1 standing rest with 4 episodes of increased sway and pt able to maintain balance x 3. 05/10/21:progressing: Therapy and pt has been practicing at home with using GB for safeyt gait without AD on deck with improved foot clearance and initiating arm swing 158 ft this tx CGA. 05/31/21: progressing able to walk 170 ft without AD, CGA with 4 stopped rests contact rail for recovery support. (06/04/21: Pt walked 123' during first pass without assistive device and no loss of balance, slow gait) LTG Duration 05/05/21 (06/04/21: MET GOAL) One Impairment Lacks appropriate HEP. Short Term Goal (STG) Improve ABC score 41-60 (40<60 % impaired). Eval score is 10 .62. 02/26/21: 31% 03/08/21: 71.875 % 04/16/21: 43% of self confidence STG Duration 03/22/21 (04/16/21: MET GOAL) Music Writer Goal (LTG) Pt will be independent with a self care HEP to promote improving LE strength and balance. 03/05/21 HEP: ankle PF&EV TB, LAQ TB , posture scap squeeze w/ shld ER TB, heel toe walking, self STMs to calf/ quad/HS, eccentric HS curl TB, coordination foot ruano/ ankle IV/EV side taps/. 05/17/21: progressing: pt requires mod- Max cuing for setup and proper form usign hand outs for ankle TB strengthening EV, DF to assist increase LLE foot clearance during gait. LTG Duration 05/05/21 (04/2721: progressing) Progress Towards Goals Progress Comments Pt endurance and LE strength improved per 5TSTS test done in 10 secs (initially was 15.7 secs), and 30 sec STS was in 13 reps (initiall was 9 reps). Assessment Summary Assessment Improved LE strength and aerobic endurance per 5TSTS and 30 sit to stand test. Pt has LOB with wide stance and turning to look behind. Poor transfer sitting after walking causing pt to have somewhat uncontrolled sit. Physical Therapy Plan Frequency and Duration Frequency of Treatment 2x/Week Plan of Care Start Date 04/16/21 Plan of Care End Date 07/15/21 Next Visit Focus/Plan Next Note Type Treatment Note Next Visit Plan ARRIETA assessment. Cont'd training for proper sit transfer after gait. Improve standing turning to look stability (Goal # 3). Focus on gait for pt to walk [place] & balance for safe gait. Standing core strengthening and seated trunk flexion TB ( Physical Therapy only) to assist balance recovery. Balance activities: Stand step pivot transfers, turning balance for stability tandem/ scissor stance balance, ? Balance training in mirror. Strengthening: LLE hips & ecc knee strengthening ( monitor ankles IV/EV strengthening). Add to HEP if spouse willing to guard pt: Trunk strengthening (R SB, R rot, and trunk flex/ext).
--- NOTE | 2021-06-14 17:15 | PT.OTN ---
Current Diagnoses Muscle weakness (generalized) (06/14/21) Difficulty in walking, not elsewhere classified (06/14/21) Abnormal posture (06/14/21) Other symptoms and signs involving the nervous system (06/14/21) Physical Therapy Treatment Note PT-OP-A Visit Information Start: 01/31/21 17:56 Freq: Status: Active Protocol: Document 06/14/21 14:24 LRN (Rec: 06/14/21 15:04 LRN [id number]) Out-Patient Physical Therapy Visit Information Visit Information Visit Type Treatment Note Visit Start Time 14:24 Visit Stop Time 15:02 Total Visit Minutes 38 Visit Number 36 Evaluation Information Evaluation Date 02/04/21 Precautions Precautions 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 PT-OP-B Current Condition Start: 01/31/21 17:56 Freq: Status: Active Protocol: Document 02/04/21 08:18 LRN (Rec: 02/04/21 09:07 LRN [id number]) Current Condition History of Current Condition Onset Date November 2019 Current Complaints Having to use walker to walk. 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 In hospital 3-4 days, transferred to [facility] in [place] (alf) and found PT to not be helpful, then home health care after 14 days of quarrentine after catching COVID. Had home health PT for 3 months. Now seeking outpatient PT independently. States she needs help walking without a walker. Have fallen a few times immediately after returning home, due to weak L leg. Doesn't have feeling in feet and has sharp pains in feet; therefore on Gabapentin. Uses topical CBD cream that helps a little. During the day and while walking around, no pain. Pain in feet is mainly at night when trying to go to sleep, or sitting watching TV. Prior Treatments and Tests Few years ago had PT for neuropathy. Has treadmill at home that she uses sometimes. Treatment Goals Patient/Caregiver Goals Pt goal is to be able to walk without a walker using a cane, improve endurance and balance and pt agreeable to being placed on a HEP at discharge. 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 Had to sit on bench to rest. Baseline Function- Other Up/down steps using 2 railings . Current Functional Impairments (Reported) Functional Limitations- ADL's Ambs around home occasioinally without walker (kitchen to living room, living room to laudry room and bathrrom). Walks on deck with FWW. Functional Limitations- Mobility/Gait Ambulates with FWW independently. 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 Can go up/down steps using 2 railings. Personal Factors Other Personal Factors That May Effect Neuropathy of the feet. Therapy/Recovery PT-OP-C Subjective Start: 01/31/21 17:56 Freq: Status: Active Protocol: Document 06/14/21 14:24 LRN (Rec: 06/14/21 15:04 LRN [id number]) OP-PT Subjective Patient Comments Patient Comments Spouse present for first part of therapy. He states 255' to walk to the first bench on the [employer] trail. PT-OP-D Balance Start: 01/31/21 17:56 Freq: Status: Active Protocol: Document 06/07/21 13:37 LRN (Rec: 06/07/21 16:47 LRN [id number]) Balance Tests Functional Reach Functional Reach Test 6 Functional Reach Impairment Rating 40 to <60% Impaired (Score 5-6 ) PT-OP-E Functional Tests Start: 01/31/21 17:56 Freq: Status: Active Protocol: Document 06/11/21 13:09 LRN (Rec: 06/11/21 15:05 LRN [id number]) Functional Tests 30 Second Sit to Stand Test Score 13 reps. Other Gait speed Name of Test Gait Speed Score 1.33 ft/sec Comment > 70's = frail = 1.38 ft/sec for women. PT-OP-G Mobility & Gait Start: 01/31/21 17:56 Freq: Status: Active Protocol: Document 02/04/21 08:18 LRN (Rec: 02/04/21 09:07 LRN [id number]) OP Gait Assessment Gait Gait Assistance Required: Independent Distance (Feet) 100 Able to Maintain Weight Bearing Status Yes During Gait Assistive Devices Assistive Device Front Wheeled Walker Gait Deviations General Gait Pattern Decreased Stride Length,Flexed Trunk,Lateral Trunk Lean, Narrow Based Gait,Step-to Gait Factors Limiting Gait Function Factors Limiting Gait Function Decreased Activity Tolerance, Decreased Strength,Poor Balance PT-OP-J Posture/Palpation/Skin Start: 01/31/21 17:56 Freq: Status: Active Protocol: Document 02/04/21 08:18 LRN (Rec: 02/04/21 09:07 LRN [id number]) Posture Evaluation Position Standing Head/C-Spine Posture Forward Head T-Spine Posture Increased Kyphosis L-Spine Posture Flattened Shoulder Posture (L) Elevated Pelvis Posture Anteriorly Tilted,Posterior Tilted Weight Distribution Weight Shifted Right Knee Posture (L) Genu Valgus,(R) Genu Valgus Comments Posture Comments Foot deformity FB at hips ~35 deg's, L hip retracted. PT-OP-M Strength Start: 01/31/21 17:56 Freq: Status: Active Protocol: Document 02/04/21 08:18 LRN (Rec: 02/04/21 09:07 LRN [id number]) Hip Strength Hip Manual Muscle Testing Right Flexion (L2) 5 Normal Left Flexion (L2) 4 Good Knee Strength Knee Manual Muscle Testing Right Comments Generally 5/5 Left Comments Generally 5/5 Ankle/Foot Strength Ankle and Foot Manual Muscle Testing Right Comments Generally 5/5 Left Inversion 3 Fair Comments L foot deformity limiting IV mobility. PT-OP-Q Treatments Start: 01/31/21 17:56 Freq: Status: Active Protocol: Document 06/14/21 14:24 LRN (Rec: 06/14/21 15:04 LRN [id number]) Therapeutic Exercises Sitting Exercises trunk flexion Sitting Exercise Name Trunk Flex (ex for in PT only) Resistance Lev 2 TB Reps/Minutes 30x Comments V cuing for pt to breath w/ex and to control movement, rest after ex Standing Exercises Trunk SB Standing Exercise Name SB Side bilateral Equipment Used Sport cord Green Reps/Minutes 30x each Comments Sit rest needed after ex. Trunk rotation Standing Exercise Name Trunk rot (clasp hands front w / band, elbows tucked into sides) Side bilateral Resistance Lev 2 TB/GB/ CGA Equipment Used chair close behind Reps/Minutes 2x15 reps Comments seated rests between sets Gait Training Gait Activity Gait w/o AD Description Gait on level w/CGA/GB Device Used None Level of Assistance CGA while holding gait belt end Surface Level Distance/Duration 167 ft. + gait during transitions with exercise. Treatment Focus Endurance/safety Comments No rest after due to patient was ready to leave. Self-Care/Home Management Treatment Education Patient Education Home Exercise Program Caregiver Education Education/training in assisting pt in Trunk strengthening in standing with TBand (R SB, R rot, and trunk flex/ext). Discussed areas of concern for spouse walking with pt to avoid possible falling and for need to rest prior to reaching 1st bench. Activities Self-Care/Home Management Activities Issued & reviewed HEP with pt and spouse: Trunk standing: Rot & SB strengthening & sitting trunk flex with TBand. Issued white strap and long Lev 2 TBand for HEP. PT-OP-T Assessment and Plan Start: 01/31/21 17:56 Freq: Status: Active Protocol: Document 06/14/21 14:24 LRN (Rec: 06/14/21 15:04 LRN [id number]) Physical Therapy Assessment Goals Four Impairment Decreased endurance (30 sec sit to stand - 9 reps; 5TSTS = 15.7 secs) Short Term Goal (STG) Improve 5TSTS TO 12.6 secs ( Norm for 80-89 yo is 14.8 sec' s) 02/21/21: progressin reps in 16 sec. 03/08/21: 5 reps 19 sec ( moderate retro lean x1 self recovery quick sit into chair no UE support). (With good control w/o use of hands: 03/11/21: 17 secs, 04/02/21: 15.15 secs, 04/09/21 : 13 secs. 05/06/21: 16 secs, 05/31/21: 16 sec, 06/07/21: 14 secs) 06/11/21: 10 secs. STG Duration 03/08/21 (06/11/21: MET GOAL) Ticket Seller Goal (LTG) Improve 30 sit to stand to 10- 15 reps (norm for ages 75-79 is 10-15 reps) 06/11/21: 13 reps in 30 secs. 02/21/21: progressin.5 reps in 30 sec. 03/01/21: progressing 10 reps in 30 sec today. 03/08/21: 12 reps in 30 sec no UE support- 1 retro lean quick descent self recovery. 04/02/21: 12 reps arms across chest, stable. LTG Duration 05/05/21 (03/08/21: MET GOAL) Three Impairment Decreased Balance per ARRIETA score of 18 (60<80% impaired) Short Term Goal (STG) Improve standing reach (5 or more safely), and ability to stand and look behind without loss of balance. 03/08/21: porgressing: able to reach 5 outside PAULO without LOB. 05/31/21: 7 outside PAULO. 06/07/21: Standing reach is 6 STG Duration 03/22/21 (03/08/21: GOAL MET) [facility] Goal (LTG) ARRIETA balance score of 34-44 ( 20<40% impaired) 03/08/21: - still high risk for falls. 04/05/21: /- 40-59% impaired, moderate risk for falls LTG Duration 05/05/21 (04/05/21: Progressing) Two Impairment Decreased gait with need of FWW for safety (Tinetti 13 = high fall risk) Short Term Goal (STG) Overall Tinetti score 23-27 (1 <20% impaired) or score 19-24 (medium fall risk, <14 high fall) risk). 02/21/21: progressing , high risk for falls. 03/08/21: 09/17, high risk for falls. 03/11/21: Tinetti score is 18 (20<40% impaired) high risk for falls. 04/02/21: Moderate risk for falls (1-20% impaired). 04/26/21: Tinetti Balance score = 11 (Initial was 6, on was 10) 05/17/21: Tinetti balance score = 8/16 (last assessed 04/26/21 was 11/16). STG Duration 03/22/21 (05/17/21: Tinetti Balance declined ) [facility] Goal (LTG) Pt will be able to walk without a cane safely 100' or more. 03/08/21: progressing: gait 152 ft using QC required stand rest for recovery 10-15 sec, provided SBA w/ gait belt for safety. 04/02/21: Completed 6MWT in 152ft requiring 3 x3 sec brief stop stand rests for recovery . 04/09/21: completed 6MWT in 192 .5 ft w/ QC with improved more fluid 3 pt patterning. 04/16/21: Gait 150' w QC, 1 standing rest with 4 episodes of increased sway and pt able to maintain balance x 3. 05/10/21:progressing: Therapy and pt has been practicing at home with using GB for safeyt gait without AD on deck with improved foot clearance and initiating arm swing 158 ft this tx CGA. 05/31/21: progressing able to walk 170 ft without AD, CGA with 4 stopped rests contact rail for recovery support. (06/04/21: Pt walked 123' during first pass without assistive device and no loss of balance, slow gait) LTG Duration 05/05/21 (06/04/21: MET GOAL) One Impairment Lacks appropriate HEP. Short Term Goal (STG) Improve ABC score 41-60 (40<60 % impaired). Eval score is 10 .62. 02/26/21: 31% 03/08/21: 71.875 % 04/16/21: 43% of self confidence STG Duration 03/22/21 (04/16/21: MET GOAL) Ticket Seller Goal (LTG) Pt will be independent with a self care HEP to promote improving LE strength and balance. 03/05/21 HEP: ankle PF&EV TB, LAQ TB , posture scap squeeze w/ shld ER TB, heel toe walking, self STMs to calf/ quad/HS, eccentric HS curl TB, coordination foot ruano/ ankle IV/EV side taps/. 05/17/21: progressing: pt requires mod- Max cuing for setup and proper form usign hand outs for ankle TB strengthening EV, DF to assist increase LLE foot clearance during gait. LTG Duration 05/05/21 (04/2721: progressing) Assessment Summary Assessment Pt spouse in attendance for most of therapy to learn CGA for standing exercises and for gait [place]. Discussioin was needed to identify areas of concern if they were to walk together on the [place] trail. They appeared to be agreeable to conditions and her walking safely with spouse. Spouse appeared to have a good understanding of the pt's balance deficits and showed good guarding behaviour during her standing exercises. Physical Therapy Plan Frequency and Duration Frequency of Treatment 2x/Week Plan of Care Start Date 04/16/21 Plan of Care End Date 07/15/21 Next Visit Focus/Plan Next Note Type Treatment Note Next Visit Plan ARRIETA & Adalberto assessment within the next 2 visits, then 1x/week for 3 week for pt and spouse to transition to self care HEP, expect DC in 5 visits to HEP for pt to continue working on improving trunk/LE strength and walking safety/stability with spouse. Continue training for proper sit transfer after gait. Improve standing turning to look stability (Goal # 3) & balance for safe gait. Balance activities: Stand step pivot transfers, turning balance for stability tandem/ scissor stance balance, ? Balance training in mirror. Pt and spouse to focus on gait for pt to walk [place]. Continue standing core strengthening and seated trunk flexion TB (Physical Therapy only) to assist balance recovery (spouse to assist pt in ex at home to promote strengthening). Review Strengthening: Monitor ankles IV/EV strengthening.
--- NOTE | 2021-06-17 16:36 | PT.OTN ---
Current Diagnoses Muscle weakness (generalized) (06/17/21) Difficulty in walking, not elsewhere classified (06/17/21) Abnormal posture (06/17/21) Other symptoms and signs involving the nervous system (06/17/21) Physical Therapy Treatment Note PT-OP-A Visit Information Start: 01/31/21 17:56 Freq: Status: Active Protocol: Document 06/17/21 10:33 LRN (Rec: 06/17/21 11:21 LRN [id number]) Out-Patient Physical Therapy Visit Information Visit Information Visit Type Treatment Note Visit Start Time 10:34 Visit Stop Time 11:17 Total Visit Minutes 43 Visit Number 37 Evaluation Information Evaluation Date 02/04/21 Precautions Precautions 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 PT-OP-B Current Condition Start: 01/31/21 17:56 Freq: Status: Active Protocol: Document 02/04/21 08:18 LRN (Rec: 02/04/21 09:07 LRN [id number]) Current Condition History of Current Condition Onset Date November 2019 Current Complaints Having to use walker to walk. 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 In hospital 3-4 days, transferred to [facility] in [place] (alf) and found PT to not be helpful, then home health care after 14 days of quarrentine after catching COVID. Had home health PT for 3 months. Now seeking outpatient PT independently. States she needs help walking without a walker. Have fallen a few times immediately after returning home, due to weak L leg. Doesn't have feeling in feet and has sharp pains in feet; therefore on Gabapentin. Uses topical CBD cream that helps a little. During the day and while walking around, no pain. Pain in feet is mainly at night when trying to go to sleep, or sitting watching TV. Prior Treatments and Tests Few years ago had PT for neuropathy. Has treadmill at home that she uses sometimes. Treatment Goals Patient/Caregiver Goals Pt goal is to be able to walk without a walker using a cane, improve endurance and balance and pt agreeable to being placed on a HEP at discharge. 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 Had to sit on bench to rest. Baseline Function- Other Up/down steps using 2 railings . Current Functional Impairments (Reported) Functional Limitations- ADL's Ambs around home occasioinally without walker (kitchen to living room, living room to laudry room and bathrrom). Walks on deck with FWW. Functional Limitations- Mobility/Gait Ambulates with FWW independently. 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 Can go up/down steps using 2 railings. Personal Factors Other Personal Factors That May Effect Neuropathy of the feet. Therapy/Recovery PT-OP-C Subjective Start: 01/31/21 17:56 Freq: Status: Active Protocol: Document 06/17/21 10:33 LRN (Rec: 06/17/21 11:21 LRN [id number]) OP-PT Subjective Patient Comments Patient Comments Has questions regarding standing trunk ex's. PT-OP-D Balance Start: 01/31/21 17:56 Freq: Status: Active Protocol: Document 06/17/21 10:33 LRN (Rec: 06/17/21 11:21 LRN [id number]) Arrieta Balance Assessment Evaluation Sitting to Standing Ability Independent w/out Hands Unsupported Stance 30 seconds Sitting Unsupported, Feet on Floor 30 seconds Standing to Sitting Ability Independent, Uncontrolled Transfer Ability Safely, Minimal Hand Use Unsupported Stance- Eyes Closed Safely, 10 seconds Unsupported Stance- Eyes Open Supervision to maintain Reaching Forward Standing Safely, 5 inches Pick- Up Object From Floor Requires Assistance Look Behind Shoulder - Standing Assist to Prevent Fall Turning 360 Degrees Requires Assistance Unsupported Stance, Alternating Feet on Assist to Prevent Fall Stair Unsupported Tandem Stance Balance Lost- Step/Stand Unilateral Leg Stance Unable,assist to not fall Total Score Arrieta Total Score (out of 56 points) 23 Arrieta Impairment Rating 40 to 59% Impaired (Score 23- 33) PT-OP-E Functional Tests Start: 01/31/21 17:56 Freq: Status: Active Protocol: Document 06/11/21 13:09 LRN (Rec: 06/11/21 15:05 LRN [id number]) Functional Tests 30 Second Sit to Stand Test Score 13 reps. Other Gait speed Name of Test Gait Speed Score 1.33 ft/sec Comment > 70's = frail = 1.38 ft/sec for women. PT-OP-G Mobility & Gait Start: 01/31/21 17:56 Freq: Status: Active Protocol: Document 02/04/21 08:18 LRN (Rec: 02/04/21 09:07 LRN [id number]) OP Gait Assessment Gait Gait Assistance Required: Independent Distance (Feet) 100 Able to Maintain Weight Bearing Status Yes During Gait Assistive Devices Assistive Device Front Wheeled Walker Gait Deviations General Gait Pattern Decreased Stride Length,Flexed Trunk,Lateral Trunk Lean, Narrow Based Gait,Step-to Gait Factors Limiting Gait Function Factors Limiting Gait Function Decreased Activity Tolerance, Decreased Strength,Poor Balance PT-OP-J Posture/Palpation/Skin Start: 01/31/21 17:56 Freq: Status: Active Protocol: Document 02/04/21 08:18 LRN (Rec: 02/04/21 09:07 LRN [id number]) Posture Evaluation Position Standing Head/C-Spine Posture Forward Head T-Spine Posture Increased Kyphosis L-Spine Posture Flattened Shoulder Posture (L) Elevated Pelvis Posture Anteriorly Tilted,Posterior Tilted Weight Distribution Weight Shifted Right Knee Posture (L) Genu Valgus,(R) Genu Valgus Comments Posture Comments Foot deformity FB at hips ~35 deg's, L hip retracted. PT-OP-M Strength Start: 01/31/21 17:56 Freq: Status: Active Protocol: Document 02/04/21 08:18 LRN (Rec: 02/04/21 09:07 LRN [id number]) Hip Strength Hip Manual Muscle Testing Right Flexion (L2) 5 Normal Left Flexion (L2) 4 Good Knee Strength Knee Manual Muscle Testing Right Comments Generally 5/5 Left Comments Generally 5/5 Ankle/Foot Strength Ankle and Foot Manual Muscle Testing Right Comments Generally 5/5 Left Inversion 3 Fair Comments L foot deformity limiting IV mobility. PT-OP-Q Treatments Start: 01/31/21 17:56 Freq: Status: Active Protocol: Document 06/17/21 10:33 LRN (Rec: 06/17/21 11:21 LRN [id number]) Therapeutic Exercises Standing Exercises Trunk SB Standing Exercise Name SB Side bilateral Equipment Used Sport cord Green Reps/Minutes 10x each Comments Sit rest needed after ex. Trunk rotation Standing Exercise Name Trunk rot (clasp hands front w / band, elbows tucked into sides) Side bilateral Resistance Lev 2 TB/GB/ CGA Equipment Used chair close behind Reps/Minutes 2x15 reps Comments seated rests between sets Neuro Re-Education Treatment Balance Activities Foot taps on 6 step Details Alternating foot taps on 6 step with min>modA Equipment 6 stairs Reps/Duration 3' Comments Pt needed close guarding and variable assist during exercise. Picking up objects Details Squat to picket [employer] object - Miguel 2 & 7.5 off ground. Surface 2 & 7.5 above ground Reps/Duration 4x each Comments Pt able to squat to picket [employer] object 7.5 from ground with moderate ease and no hold assist with UE's (Miguel with GB ). Pt had quite a bit of difficulty from 2 from ground due to a lot of body sway. Turning Details Static turning of body & standing turning Surface Level Equipment GB Reps/Duration 2x each Comments Pt not able to maintain balance with static turning to the right. Pt able to walk turn slowly with CGA with greater stability than static standing . Transfer stability sit<>stand Details Sit<>Stand with stability gained after movement training Surface Level Equipment GB/No use of UE's or AD Reps/Duration multiple reps, 25 min Comments cued for walk all way to front chair then pivot and back up, feel chair behind B knees then hip hinge with good slow descent to chair w/out arms. LOB during Tug Test requiring Max A recovery 1st rep, Required 25% A> 15%A, 10%A> 5% A with max cues not retro lean backing up. Better turning to L than R. Standing EO, EC Details Standing balance with CGA and heavy guarding Surface Level Equipment GB Reps/Duration Multiple attemps with EC & 2x with EO Comments EC - multiple practices with max balance during EC of 10 secs EO - 2x with supervision, v. cuing of balancing on feet. ARRIETA Details See above in balance section Surface Level Equipment GB Reps/Duration x 1 Comments reassessed today - 40-59 % impaired PT-OP-T Assessment and Plan Start: 01/31/21 17:56 Freq: Status: Active Protocol: Document 06/17/21 10:33 LRN (Rec: 06/17/21 11:21 LRN [id number]) Physical Therapy Assessment Goals Three Impairment Decreased Balance per ARRIETA score of 18 (60<80% impaired) Short Term Goal (STG) Improve standing reach (5 or more safely), and ability to stand and look behind without loss of balance. 03/08/21: porgressing: able to reach 5 outside PAULO without LOB. 05/31/21: 7 outside PAULO. 06/07/21: Standing reach is 6 STG Duration 03/22/21 (03/08/21: GOAL MET) Park Aide Goal (LTG) ARRIETA balance score of 34-44 ( 20<40% impaired) 03/08/21: 23/56- still high risk for falls. 04/05/21, 06/17/21: 32/56- 40-59 % impaired, moderate risk for falls LTG Duration 05/05/21 (06/17/21: NO change since 04/05/21.) Two Impairment Decreased gait with need of FWW for safety (Tinetti 13 = high fall risk) Short Term Goal (STG) Overall Tinetti score 23-27 (1 <20% impaired) or score 19-24 (medium fall risk, <14 high fall) risk). 02/21/21: progressing , high risk for falls. 03/08/21: 09/17, high risk for falls. 03/11/21: Tinetti score is 18 (20<40% impaired) high risk for falls. 04/02/21: Moderate risk for falls (1-20% impaired). 04/26/21: Tinetti Balance score = 11 (Initial was 6, on was 10) 05/17/21: Tinetti balance score = 8/16 (last assessed 04/26/21 was 11/). STG Duration 03/22/21 (05/17/21: Tinetti Balance declined ) Detention Goal (LTG) Pt will be able to walk without a cane safely 100' or more. 03/08/21: progressing: gait 152 ft using QC required stand rest for recovery 10-15 sec, provided SBA w/ gait belt for safety. 04/02/21: Completed 6MWT in 152ft requiring 3 x3 sec brief stop stand rests for recovery . 04/09/21: completed 6MWT in 192 .5 ft w/ QC with improved more fluid 3 pt patterning. 04/16/21: Gait 150' w QC, 1 standing rest with 4 episodes of increased sway and pt able to maintain balance x 3. 05/10/21:progressing: Therapy and pt has been practicing at home with using GB for safeyt gait without AD on deck with improved foot clearance and initiating arm swing 158 ft this tx CGA. 05/31/21: progressing able to walk 170 ft without AD, CGA with 4 stopped rests contact rail for recovery support. (06/04/21: Pt walked 123' during first pass without assistive device and no loss of balance, slow gait) LTG Duration 05/05/21 (06/04/21: MET GOAL) One Impairment Lacks appropriate HEP. Short Term Goal (STG) Improve ABC score 41-60 (40<60 % impaired). Eval score is 10 .62. 02/26/21: 31% 03/08/21: 71.875 % 04/16/21: 43% of self confidence STG Duration 03/22/21 (04/16/21: MET GOAL) Detention Goal (LTG) Pt will be independent with a self care HEP to promote improving LE strength and balance. 03/05/21 HEP: ankle PF&EV TB, LAQ TB , posture scap squeeze w/ shld ER TB, heel toe walking, self STMs to calf/ quad/HS, eccentric HS curl TB, coordination foot ruano/ ankle IV/EV side taps/. 05/17/21: progressing: pt requires mod- Max cuing for setup and proper form usign hand outs for ankle TB strengthening EV, DF to assist increase LLE foot clearance during gait. LTG Duration 05/05/21 (04/2721: progressing) Progress Towards Goals Progress Comments Arrieta improved from initial of score 18 to 23, although % impairment is the same since . Assessment Summary Assessment During balance ex's the pt required close guarding using GB due to intermittent poor balance with turning, squatting and stair tapping. The pt required multiple sit rests due to fatigue of LE's. Pt is also unsteady with standing trunk exercises. Pt not able to walk lately due to inclement weather. Physical Therapy Plan Frequency and Duration Frequency of Treatment 2x/Week Plan of Care Start Date 04/16/21 Plan of Care End Date 07/15/21 Next Visit Focus/Plan Next Note Type Treatment Note Next Visit Plan Tinetti assessment within the next visit, then 1x/week for 2 week for pt and spouse to transition to self care HEP, expect DC in 2 visits to HEP for pt to continue working on improving trunk/LE strength and walking safety/stability with spouse. Continue training for proper sit transfer after gait. Focus balance & standing turning to look stability ( Goal # 3) & balance for safe gait. Balance activities: Turning balance for stability tandem/ scissor stance balance, ? Balance training in mirror. Continue standing core strengthening and seated trunk flexion TB (Physical Therapy only) to assist balance recovery. Pt and spouse to focus on gait for pt to walk [place]. Spouse to assist pt in trunk strengtheing at home.
--- NOTE | 2021-06-24 11:18 | PT.OTN ---
Current Diagnoses Muscle weakness (generalized) (06/24/21) Difficulty in walking, not elsewhere classified (06/24/21) Abnormal posture (06/24/21) Other symptoms and signs involving the nervous system (06/24/21) Physical Therapy Treatment Note PT-OP-A Visit Information Start: 01/31/21 17:56 Freq: Status: Active Protocol: Document 06/24/21 10:33 SP (Rec: 06/24/21 11:47 SP [id number]) Out-Patient Physical Therapy Visit Information Visit Information Visit Type Treatment Note Visit Start Time 10:33 Visit Stop Time 11:18 Total Visit Minutes 45 Visit Number 38 Number of CARD HAND Visits 1 PT-OP-B Current Condition Start: 01/31/21 17:56 Freq: Status: Active Protocol: Document 02/04/21 08:18 LRN (Rec: 02/04/21 09:07 LRN [id number]) Current Condition History of Current Condition Onset Date November 2019 Current Complaints Having to use walker to walk. 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 In hospital 3-4 days, transferred to [facility] in [place] (alf) and found PT to not be helpful, then home health care after 14 days of quarrentine after catching COVID. Had home health PT for 3 months. Now seeking outpatient PT independently. States she needs help walking without a walker. Have fallen a few times immediately after returning home, due to weak L leg. Doesn't have feeling in feet and has sharp pains in feet; therefore on Gabapentin. Uses topical CBD cream that helps a little. During the day and while walking around, no pain. Pain in feet is mainly at night when trying to go to sleep, or sitting watching TV. Prior Treatments and Tests Few years ago had PT for neuropathy. Has treadmill at home that she uses sometimes. Treatment Goals Patient/Caregiver Goals Pt goal is to be able to walk without a walker using a cane, improve endurance and balance and pt agreeable to being placed on a HEP at discharge. 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 Had to sit on bench to rest. Baseline Function- Other Up/down steps using 2 railings . Current Functional Impairments (Reported) Functional Limitations- ADL's Ambs around home occasioinally without walker (kitchen to living room, living room to laudry room and bathrrom). Walks on deck with FWW. Functional Limitations- Mobility/Gait Ambulates with FWW independently. 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 Can go up/down steps using 2 railings. Personal Factors Other Personal Factors That May Effect Neuropathy of the feet. Therapy/Recovery PT-OP-C Subjective Start: 01/31/21 17:56 Freq: Status: Active Protocol: Document 06/24/21 10:33 SP (Rec: 06/24/21 11:47 SP [id number]) OP-PT Subjective Patient Comments Patient Comments Pt states has been walking more in the house without FWW. Pt stated feeling more comfortable with her walking but still challenged by balance. Patient Reported Progress Improving PT-OP-D Balance Start: 01/31/21 17:56 Freq: Status: Active Protocol: Document 06/17/21 10:33 LRN (Rec: 06/17/21 11:21 LRN [id number]) Arrieta Balance Assessment Evaluation Sitting to Standing Ability Independent w/out Hands Unsupported Stance 30 seconds Sitting Unsupported, Feet on Floor 30 seconds Standing to Sitting Ability Independent, Uncontrolled Transfer Ability Safely, Minimal Hand Use Unsupported Stance- Eyes Closed Safely, 10 seconds Unsupported Stance- Eyes Open Supervision to maintain Reaching Forward Standing Safely, 5 inches Pick- Up Object From Floor Requires Assistance Look Behind Shoulder - Standing Assist to Prevent Fall Turning 360 Degrees Requires Assistance Unsupported Stance, Alternating Feet on Assist to Prevent Fall Stair Unsupported Tandem Stance Balance Lost- Step/Stand Unilateral Leg Stance Unable,assist to not fall Total Score Arrieta Total Score (out of 56 points) 23 Arrieta Impairment Rating 40 to 59% Impaired (Score 23- 33) PT-OP-E Functional Tests Start: 01/31/21 17:56 Freq: Status: Active Protocol: Document 06/24/21 10:33 SP (Rec: 06/24/21 11:47 SP [id number]) Functional Tests Tinetti Balance and Gait Assessment Balance Score 13 Gait Score 7 Composite Score 20 Balance Score Impairment Rating 1 to <20% Impaired (Score 13- 15) Gait Score Impairment Rating 40 to <60% Impaired (Score 5-7 ) Composite Score Impairment Rating 20 to <40% Impaired (Score 17- 22) PT-OP-G Mobility & Gait Start: 01/31/21 17:56 Freq: Status: Active Protocol: Document 02/04/21 08:18 LRN (Rec: 02/04/21 09:07 LRN [id number]) OP Gait Assessment Gait Gait Assistance Required: Independent Distance (Feet) 100 Able to Maintain Weight Bearing Status Yes During Gait Assistive Devices Assistive Device Front Wheeled Walker Gait Deviations General Gait Pattern Decreased Stride Length,Flexed Trunk,Lateral Trunk Lean, Narrow Based Gait,Step-to Gait Factors Limiting Gait Function Factors Limiting Gait Function Decreased Activity Tolerance, Decreased Strength,Poor Balance PT-OP-J Posture/Palpation/Skin Start: 01/31/21 17:56 Freq: Status: Active Protocol: Document 02/04/21 08:18 LRN (Rec: 02/04/21 09:07 LRN [id number]) Posture Evaluation Position Standing Head/C-Spine Posture Forward Head T-Spine Posture Increased Kyphosis L-Spine Posture Flattened Shoulder Posture (L) Elevated Pelvis Posture Anteriorly Tilted,Posterior Tilted Weight Distribution Weight Shifted Right Knee Posture (L) Genu Valgus,(R) Genu Valgus Comments Posture Comments Foot deformity FB at hips ~35 deg's, L hip retracted. PT-OP-M Strength Start: 01/31/21 17:56 Freq: Status: Active Protocol: Document 02/04/21 08:18 LRN (Rec: 02/04/21 09:07 LRN [id number]) Hip Strength Hip Manual Muscle Testing Right Flexion (L2) 5 Normal Left Flexion (L2) 4 Good Knee Strength Knee Manual Muscle Testing Right Comments Generally 5/5 Left Comments Generally 5/5 Ankle/Foot Strength Ankle and Foot Manual Muscle Testing Right Comments Generally 5/5 Left Inversion 3 Fair Comments L foot deformity limiting IV mobility. PT-OP-Q Treatments Start: 01/31/21 17:56 Freq: Status: Active Protocol: Document 06/24/21 10:33 SP (Rec: 06/24/21 11:47 SP [id number]) Therapeutic Exercises Standing Exercises Trunk rotation Standing Exercise Name Trunk rot (clasp hands front w / band, elbows tucked into sides) Side bilateral Resistance Lev 2 TB/GB/ CGA-close SBA Equipment Used chair close to side Reps/Minutes 2x15 reps Comments no rest between sets, able pivot without UE support Gait Training Gait Activity Gait w/o AD Description Gait on level w/CGA/GB Device Used None Level of Assistance SBA (pt pushed FWW forward then step to it as at home- assessed for safety) Surface Level Distance/Duration 170 ft x2 Treatment Focus Endurance/safety Comments Fair balance pre and post standing exercises. Pt more confident stability: noted 1 wt shift deviation to R but self recovery without UE support required. Neuro Re-Education Treatment Balance Activities box step Details CW/ CCW for balance spacial awareness COG over PAULO Surface firm Equipment box joana carpet, GB, RANGE AIDE Reps/Duration 5 min Comments Mod- Min A for balance RANGE AIDE on L and contact GB Max cuing for LE patterning, tall posture with PAULO over forward B foot triangle. Education facing rail BUE support CG- SBA education foot patterning understanding. Nudge training Details isometric pressure and release self recovery Surface Sitting and standing Equipment GB, mirror for trunk alignment , chair posterior Reps/Duration 3 Comments Training for pt to react to trunk pressure/release to use TA and postural awareness over PAULO by bracing self. More challenged recovery retro than forward Mod A > Min A with reps, lateral CG- Min A. Pt improver trunk alignment with mirror use PT-OP-T Assessment and Plan Start: 01/31/21 17:56 Freq: Status: Active Protocol: Document 06/24/21 10:33 SP (Rec: 06/24/21 11:47 SP [id number]) Physical Therapy Assessment Goals Four Impairment Decreased endurance (30 sec sit to stand - 9 reps; 5TSTS = 15.7 secs) Short Term Goal (STG) Improve 5TSTS TO 12.6 secs ( Norm for 80-89 yo is 14.8 sec' s) 02/21/21: progressin reps in 16 sec. 03/08/21: 5 reps 19 sec ( moderate retro lean x1 self recovery quick sit into chair no UE support). (With good control w/o use of hands: 03/11/21: 17 secs, 04/02/21: 15.15 secs, 04/09/21 : 13 secs. 05/06/21: 16 secs, 05/31/21: 16 sec, 06/07/21: 14 secs) 06/11/21: 10 secs. STG Duration 03/08/21 (06/11/21: MET GOAL) New Car Salesperson Goal (LTG) Improve 30 sit to stand to 10- 15 reps (norm for ages 75-79 is 10-15 reps) 06/11/21: 13 reps in 30 secs. 02/21/21: progressin.5 reps in 30 sec. 03/01/21: progressing 10 reps in 30 sec today. 03/08/21: 12 reps in 30 sec no UE support- 1 retro lean quick descent self recovery. 04/02/21: 12 reps arms across chest, stable. LTG Duration 05/05/21 (03/08/21: MET GOAL) Three Impairment Decreased Balance per ARRIETA score of 18 (60<80% impaired) Short Term Goal (STG) Improve standing reach (5 or more safely), and ability to stand and look behind without loss of balance. 03/08/21: porgressing: able to reach 5 outside PAULO without LOB. 05/31/21: 7 outside PAULO. 06/07/21: Standing reach is 6 STG Duration 03/22/21 (03/08/21: GOAL MET) Senior Living Goal (LTG) ARRIETA balance score of 34-44 ( 20<40% impaired) 03/08/21: 23/56- still high risk for falls. 04/05/21, 06/17/21: 32/56- 40-59 % impaired, moderate risk for falls LTG Duration 05/05/21 (06/17/21: NO change since 04/05/21.) Two Impairment Decreased gait with need of FWW for safety (Tinetti 13 = high fall risk) Short Term Goal (STG) Overall Tinetti score 23-27 (1 <20% impaired) or score 19-24 (medium fall risk, <14 high fall) risk). 02/21/21: progressing , high risk for falls. 03/08/21: 09/17, high risk for falls. 03/11/21: Tinetti score is 18 (20<40% impaired) high risk for falls. 04/02/21: Moderate risk for falls (1-20% impaired). 04/26/21: Tinetti Balance score = 11 (Initial was 6, on was 10) 05/17/21: Tinetti balance score = 8/ (last assessed 04/26/21 was 11/ Total score 40 -60% impaired, 06/24/21: pogressing Tinnetti bal score , gait score 04/01= 20- 40% impaired). STG Duration 03/22/21 (06/24/21: Tinetti Balance increased ) New Car Salesperson Goal (LTG) Pt will be able to walk without a cane safely 100' or more. 03/08/21: progressing: gait 152 ft using QC required stand rest for recovery 10-15 sec, provided SBA w/ gait belt for safety. 04/02/21: Completed 6MWT in 152ft requiring 3 x3 sec brief stop stand rests for recovery . 04/09/21: completed 6MWT in 192 .5 ft w/ QC with improved more fluid 3 pt patterning. 04/16/21: Gait 150' w QC, 1 standing rest with 4 episodes of increased sway and pt able to maintain balance x 3. 05/10/21:progressing: Therapy and pt has been practicing at home with using GB for safeyt gait without AD on deck with improved foot clearance and initiating arm swing 158 ft this tx CGA. 05/31/21: progressing able to walk 170 ft without AD, CGA with 4 stopped rests contact rail for recovery support. (06/04/21: Pt walked 123' during first pass without assistive device and no loss of balance, slow gait) LTG Duration 05/05/21 (06/04/21: MET GOAL) One Impairment Lacks appropriate HEP. Short Term Goal (STG) Improve ABC score 41-60 (40<60 % impaired). Eval score is 10 .62. 02/26/21: 31% 03/08/21: 71.875 % 04/16/21: 43% of self confidence STG Duration 03/22/21 (04/16/21: MET GOAL) Senior Living Goal (LTG) Pt will be independent with a self care HEP to promote improving LE strength and balance. 03/05/21 HEP: ankle PF&EV TB, LAQ TB , posture scap squeeze w/ shld ER TB, heel toe walking, self STMs to calf/ quad/HS, eccentric HS curl TB, coordination foot ruano/ ankle IV/EV side taps/. 05/17/21: progressing: pt requires mod- Max cuing for setup and proper form usign hand outs for ankle TB strengthening EV, DF to assist increase LLE foot clearance during gait. LTG Duration 05/05/21 (04/2721: progressing) Progress Towards Goals Progress Towards Goals Progressing Toward Goals Progress Comments Tinetti improved from to with biggest improvement in balance scoring 8/16 to 13/16 and gait 01/30 to 04/01 from last testing on . Assessment Summary Assessment Pt making gains in balance during Tinetti assessment 20-40% impaired, improvement from 4-60% impaired. Pt more confident in pivot turns front of the chair with no LOB, cued LLE for awareness of LLE foot clearance, noted little scuffing still. Pt able to perform standing trunk rotation TB today with very slight wt shift out of PAULO deviations but inately natural recovers today. CARD HAND introduced isometric trunk pressure recovery, improved forward and R>L self recoveries CG- 5%A but challenged by retro Mod> Min A . Extra time spent on understanding tall COG needed more into ball of B feet. Also introduced box step CW and CCW with Mod> Min A RANGE AIDE and contact GB for safety max cuing for patterning. Improved understanding and patterning, challenged by balance. Pt found very helpful. Will continue to assess self recovery next tx. CARD HAND told performing these new balance activitites in PT only for safety, with verbalized understanding. Physical Therapy Plan Frequency and Duration Frequency of Treatment 2x/Week Plan of Care Start Date 04/16/21 Plan of Care End Date 07/15/21 Therapeutic Interventions Therapeutic Interventions Balance Training,Coordination Training,Gait Training,Home Exercise Program,Manual Therapy,Neuromuscular Re- education,Patient/Caregiver Education,Self-Care/Home Management,Therapeutic Activities,Therapeutic Exercises Modalities Cold Pack/Ice Massage,Hot Packs Next Visit Focus/Plan Next Note Type Treatment Note Next Visit Plan Revisit isometric trunk recoveries and box step introduced last tx. POC: Tinetti assessment ( on 06/24/21), 1x/week for 2 week for pt and spouse to transition to self care HEP, expect DC in 2 visits to HEP for pt to continue working on improving trunk/LE strength and walking safety/stability with spouse. Continue training for proper sit transfer after gait. Focus balance & standing turning to look stability ( Goal # 3) & balance for safe gait. Balance activities: Turning balance for stability tandem/ scissor stance balance, ? Balance training in mirror. Continue standing core strengthening and seated trunk flexion TB (Physical Therapy only) to assist balance recovery. Pt and spouse to focus on gait for pt to walk [place]. Spouse to assist pt in trunk strengtheing at home.
--- NOTE | 2021-07-08 17:08 | PT.OTN ---
Current Diagnoses Muscle weakness (generalized) (07/08/21) Difficulty in walking, not elsewhere classified (07/08/21) Abnormal posture (07/08/21) Other symptoms and signs involving the nervous system (07/08/21) Physical Therapy Treatment Note PT-OP-A Visit Information Start: 01/31/21 17:56 Freq: Status: Active Protocol: Document 07/08/21 14:27 LRN (Rec: 07/08/21 15:17 LRN [id number]) Out-Patient Physical Therapy Visit Information Visit Information Visit Type Treatment Note Visit Start Time 14:27 Visit Stop Time 15:06 Total Visit Minutes 39 Visit Number 39 Evaluation Information Evaluation Date 02/04/21 Precautions Precautions 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 PT-OP-B Current Condition Start: 01/31/21 17:56 Freq: Status: Active Protocol: Document 02/04/21 08:18 LRN (Rec: 02/04/21 09:07 LRN [id number]) Current Condition History of Current Condition Onset Date November 2019 Current Complaints Having to use walker to walk. 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 In hospital 3-4 days, transferred to [facility] in [place] (senior living) and found PT to not be helpful, then home health care after 14 days of quarrentine after catching COVID. Had home health PT for 3 months. Now seeking outpatient PT independently. States she needs help walking without a walker. Have fallen a few times immediately after returning home, due to weak L leg. Doesn't have feeling in feet and has sharp pains in feet; therefore on Gabapentin. Uses topical CBD cream that helps a little. During the day and while walking around, no pain. Pain in feet is mainly at night when trying to go to sleep, or sitting watching TV. Prior Treatments and Tests Few years ago had PT for neuropathy. Has treadmill at home that she uses sometimes. Treatment Goals Patient/Caregiver Goals Pt goal is to be able to walk without a walker using a cane, improve endurance and balance and pt agreeable to being placed on a HEP at discharge. 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 Had to sit on bench to rest. Baseline Function- Other Up/down steps using 2 railings . Current Functional Impairments (Reported) Functional Limitations- ADL's Ambs around home occasioinally without walker (kitchen to living room, living room to laudry room and bathrrom). Walks on deck with FWW. Functional Limitations- Mobility/Gait Ambulates with FWW independently. 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 Can go up/down steps using 2 railings. Personal Factors Other Personal Factors That May Effect Neuropathy of the feet. Therapy/Recovery PT-OP-C Subjective Start: 01/31/21 17:56 Freq: Status: Active Protocol: Document 07/08/21 14:27 LRN (Rec: 07/08/21 15:17 LRN [id number]) OP-PT Subjective Patient Comments Patient Comments Has been fit for new orthotic shoes. Has been walking around the house. Weather not good enough to walk the [place] Feels she can walk portion of it. PT-OP-D Balance Start: 01/31/21 17:56 Freq: Status: Active Protocol: Document 07/08/21 14:27 LRN (Rec: 07/08/21 15:17 LRN [id number]) Arrieta Balance Assessment Evaluation Sitting to Standing Ability Independent w/out Hands Unsupported Stance Safely- 2 minutes Sitting Unsupported, Feet on Floor Safely- 2 minutes Standing to Sitting Ability Safely, Minimal Hand Use Transfer Ability Safely, Minimal Hand Use Unsupported Stance- Eyes Closed Safely, With Eyes Open Unsupported Stance- Eyes Open Independent, 1 minute Reaching Forward Standing Safely, 5 inches Pick- Up Object From Floor Requires Supervision Look Behind Shoulder - Standing Turns Sideways Only Turning 360 Degrees Turns slowly, but safely Unsupported Stance, Alternating Feet on (I)- 8 Steps in > 20 secs Stair Unsupported Tandem Stance Balance Lost- Step/Stand Unilateral Leg Stance Lifts Leg/Unable to Hold Total Score Arrieta Total Score (out of 56 points) 37 Arrieta Impairment Rating 20 to 39% Impaired (Score 34- 44) PT-OP-E Functional Tests Start: 01/31/21 17:56 Freq: Status: Active Protocol: Document 06/24/21 10:33 SP (Rec: 06/24/21 11:47 SP [id number]) Functional Tests Tinetti Balance and Gait Assessment Balance Score 13 Gait Score 7 Composite Score 20 Balance Score Impairment Rating 1 to <20% Impaired (Score 13- 15) Gait Score Impairment Rating 40 to <60% Impaired (Score 5-7 ) Composite Score Impairment Rating 20 to <40% Impaired (Score 17- 22) PT-OP-G Mobility & Gait Start: 01/31/21 17:56 Freq: Status: Active Protocol: Document 02/04/21 08:18 LRN (Rec: 02/04/21 09:07 LRN [id number]) OP Gait Assessment Gait Gait Assistance Required: Independent Distance (Feet) 100 Able to Maintain Weight Bearing Status Yes During Gait Assistive Devices Assistive Device Front Wheeled Walker Gait Deviations General Gait Pattern Decreased Stride Length,Flexed Trunk,Lateral Trunk Lean, Narrow Based Gait,Step-to Gait Factors Limiting Gait Function Factors Limiting Gait Function Decreased Activity Tolerance, Decreased Strength,Poor Balance PT-OP-J Posture/Palpation/Skin Start: 01/31/21 17:56 Freq: Status: Active Protocol: Document 02/04/21 08:18 LRN (Rec: 02/04/21 09:07 LRN [id number]) Posture Evaluation Position Standing Head/C-Spine Posture Forward Head T-Spine Posture Increased Kyphosis L-Spine Posture Flattened Shoulder Posture (L) Elevated Pelvis Posture Anteriorly Tilted,Posterior Tilted Weight Distribution Weight Shifted Right Knee Posture (L) Genu Valgus,(R) Genu Valgus Comments Posture Comments Foot deformity FB at hips ~35 deg's, L hip retracted. PT-OP-M Strength Start: 01/31/21 17:56 Freq: Status: Active Protocol: Document 02/04/21 08:18 LRN (Rec: 02/04/21 09:07 LRN [id number]) Hip Strength Hip Manual Muscle Testing Right Flexion (L2) 5 Normal Left Flexion (L2) 4 Good Knee Strength Knee Manual Muscle Testing Right Comments Generally 5/5 Left Comments Generally 5/5 Ankle/Foot Strength Ankle and Foot Manual Muscle Testing Right Comments Generally 5/5 Left Inversion 3 Fair Comments L foot deformity limiting IV mobility. PT-OP-Q Treatments Start: 01/31/21 17:56 Freq: Status: Active Protocol: Document 07/08/21 14:27 LRN (Rec: 07/08/21 15:17 LRN [id number]) Neuro Re-Education Treatment Balance Activities SLS Details SLS bilaterally Surface Level Equipment Railing Reps/Duration Pt not able to maintain SLS > 1 sec Standing Squat Details Standing squat with and w/o UE support Equipment Railing one side/GB Reps/Duration 3x each side Comments Heavy guarding > CGA with GB. Pt able to squat to perform but was unsteady at full squat to roll picker object off the ground. Standing lookikng over shoulder Details Turning trunk to look over shoulder - bilateral Surface Level Equipment GB Reps/Duration 3x each Comments Pt very unstead at end-range. Pt required close guarding with use of GB. Standing reach Details Balance training: reaching forward with R hand Surface Level Equipment GB Reps/Duration 3' Foot taps on 6 step Details Alternating foot taps on 6 step with min>modA Equipment 6 stairs, railing & w/o railing, GB Reps/Duration 3' Comments Pt able to perform with heavy guarding and variable assist during exercise. Pt did not require use of railing to perform and wa s able to maintain balance. Picking up objects Details Picking up object off floor, without UE support Surface Level Equipment GB Reps/Duration 2x Comments Pt was mostly abelt o pick objet off floor with either hand and no UE support. Pt required heavy guarding with GB worn and required sit rests between bouts. tandem stance balance Details Tandem Stance - bilateral Surface Level Equipment Railing/GB Reps/Duration 4' Comments Pt was able to hold position 1 sec with L leg behind after using railing to obtain position. Pt not able to hold [id number] with R leg behind. Turning Details Turning 360 degress - bilaterally Surface Level Equipment GB Reps/Duration 3x each Comments 8 secs to Left 10 secs to Right Standing EO, EC Details Standing EO/EC Surface Level Equipment GB/Corner Reps/Duration 6' Comments Pt needed close guarding and rest periods between standing attempts. PT-OP-T Assessment and Plan Start: 01/31/21 17:56 Freq: Status: Active Protocol: Document 07/08/21 14:27 LRN (Rec: 07/08/21 15:17 LRN [id number]) Physical Therapy Assessment Goals Four Impairment Decreased endurance (30 sec sit to stand - 9 reps; 5TSTS = 15.7 secs) Short Term Goal (STG) Improve 5TSTS TO 12.6 secs ( Norm for 80-89 yo is 14.8 sec' s) 02/21/21: progressin reps in 16 sec. 03/08/21: 5 reps 19 sec ( moderate retro lean x1 self recovery quick sit into chair no UE support). (With good control w/o use of hands: 03/11/21: 17 secs, 04/02/21: 15.15 secs, 04/09/21 : 13 secs. 05/06/21: 16 secs, 05/31/21: 16 sec, 06/07/21: 14 secs) 06/11/21: 10 secs. STG Duration 03/08/21 (06/11/21: MET GOAL) Custodial Goal (LTG) Improve 30 sit to stand to 10- 15 reps (norm for ages 75-79 is 10-15 reps) 06/11/21: 13 reps in 30 secs. 02/21/21: progressin.5 reps in 30 sec. 03/01/21: progressing 10 reps in 30 sec today. 03/08/21: 12 reps in 30 sec no UE support- 1 retro lean quick descent self recovery. 04/02/21: 12 reps arms across chest, stable. LTG Duration 05/05/21 (03/08/21: MET GOAL) Three Impairment Decreased Balance per ARRIETA score of 18 (60<80% impaired) Short Term Goal (STG) Improve standing reach (5 or more safely), and ability to stand and look behind without loss of balance. 03/08/21: porgressing: able to reach 5 outside PAULO without LOB. 05/31/21: 7 outside PAULO. 06/07/21: Standing reach is 6 STG Duration 03/22/21 (03/08/21: GOAL MET) Youth Coordinator Goal (LTG) ARRIETA balance score of 34-44 ( 20<40% impaired) 03/08/21: 23/56- still high risk for falls. 04/05/21, 06/17/21: 32/56- 40-59 % impaired, moderate risk for falls 07/08/21: ARRIETA score of 37 (20 -39% impaired). LTG Duration 05/05/21 (07/08/21: MET GOAL ) Two Impairment Decreased gait with need of FWW for safety (Tinetti 13 = high fall risk) Short Term Goal (STG) Overall Tinetti score 23-27 (1 <20% impaired) or score 19-24 (medium fall risk, <14 high fall) risk). 02/21/21: progressing , high risk for falls. 03/08/21: 09/17, high risk for falls. 03/11/21: Tinetti score is 18 (20<40% impaired) high risk for falls. 04/02/21: Moderate risk for falls (1-20% impaired). 04/26/21: Tinetti Balance score = 11 (Initial was 6, on was 10) 05/17/21: Tinetti balance score = 8/16 (last assessed 04/26/21 was 11/16 Total score 40 -60% impaired, 06/24/21: pogressing Tinnetti bal score 13/16, gait score 04/01= 20- 40% impaired). STG Duration 03/22/21 (06/24/21: Tinetti Balance increased ) Custodial Goal (LTG) Pt will be able to walk without a cane safely 100' or more. 03/08/21: progressing: gait 152 ft using QC required stand rest for recovery 10-15 sec, provided SBA w/ gait belt for safety. 04/02/21: Completed 6MWT in 152ft requiring 3 x3 sec brief stop stand rests for recovery . 04/09/21: completed 6MWT in 192 .5 ft w/ QC with improved more fluid 3 pt patterning. 04/16/21: Gait 150' w QC, 1 standing rest with 4 episodes of increased sway and pt able to maintain balance x 3. 05/10/21:progressing: Therapy and pt has been practicing at home with using GB for safeyt gait without AD on deck with improved foot clearance and initiating arm swing 158 ft this tx CGA. 05/31/21: progressing able to walk 170 ft without AD, CGA with 4 stopped rests contact rail for recovery support. (06/04/21: Pt walked 123' during first pass without assistive device and no loss of balance, slow gait) LTG Duration 05/05/21 (06/04/21: MET GOAL) One Impairment Lacks appropriate HEP. Short Term Goal (STG) Improve ABC score 41-60 (40<60 % impaired). Eval score is 10 .62. 02/26/21: 31% 03/08/21: 71.875 % 04/16/21: 43% of self confidence STG Duration 03/22/21 (04/16/21: MET GOAL) Custodial Goal (LTG) Pt will be independent with a self care HEP to promote improving LE strength and balance. 03/05/21 HEP: ankle PF&EV TB, LAQ TB , posture scap squeeze w/ shld ER TB, heel toe walking, self STMs to calf/ quad/HS, eccentric HS curl TB, coordination foot ruano/ ankle IV/EV side taps/. 05/17/21: progressing: pt requires mod- Max cuing for setup and proper form usign hand outs for ankle TB strengthening EV, DF to assist increase LLE foot clearance during gait. LTG Duration 05/05/21 (04/2721: progressing) Progress Towards Goals Progress Comments ARRIETA Balance improved from 40- 59% impaired to 20-39% impaired. Assessment Summary Assessment Balance improved with LTG #3 MET GOAL. Pt improved with balance in multiple areas (see ARRIETA score comparisons). Pt shows stiffness with gait and is most unsteady with eyes closed and Tandem/SLS. Pt demonstrated very well controlled sit from standing 90% of the time, when tired pt plopped with sitting x 1. Physical Therapy Plan Frequency and Duration Frequency of Treatment 2x/Week Plan of Care Start Date 04/16/21 Plan of Care End Date 07/15/21 Next Visit Focus/Plan Next Note Type Discharge Summary Next Visit Plan Reassess Tinetti gait and balance, and pt's progress to walking [place]. Revisit isometric trunk recoveries and box step introduced last tx. POC: Tinetti assessment ( on 06/24/21). One more visit for pt and spouse to transition to self care HEP, expect DC next visits to HEP for pt to continue working on improving trunk/LE strength and walking safety/stability with spouse. Focus balance and proper toe- heel for safe gait. Balance activities: Turning balance for stability. Standing core strengthening and seated trunk flexion TB ( Physical Therapy only) if time permits. Pt and spouse to focus on gait for pt to walk [place].
--- NOTE | 2021-07-15 16:41 | PT.OTN ---
Current Diagnoses Muscle weakness (generalized) (07/15/21) Difficulty in walking, not elsewhere classified (07/15/21) Abnormal posture (07/15/21) Other symptoms and signs involving the nervous system (07/15/21) Physical Therapy Treatment Note PT-OP-A Visit Information Start: 01/31/21 17:56 Freq: Status: Active Protocol: Document 07/15/21 14:19 LRN (Rec: 07/15/21 15:07 LRN [id number]) Out-Patient Physical Therapy Visit Information Visit Information Visit Type Treatment Note Visit Start Time 14:19 Visit Stop Time 14:59 Total Visit Minutes 40 Visit Number 40 Evaluation Information Evaluation Date 02/04/21 Precautions Precautions 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 PT-OP-B Current Condition Start: 01/31/21 17:56 Freq: Status: Active Protocol: Document 02/04/21 08:18 LRN (Rec: 02/04/21 09:07 LRN [id number]) Current Condition History of Current Condition Onset Date November 2019 Current Complaints Having to use walker to walk. 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 In hospital 3-4 days, transferred to [facility] in [place] ([facility]ci) and found PT to not be helpful, then home health care after 14 days of quarrentine after catching COVID. Had home health PT for 3 months. Now seeking outpatient PT independently. States she needs help walking without a walker. Have fallen a few times immediately after returning home, due to weak L leg. Doesn't have feeling in feet and has sharp pains in feet; therefore on Gabapentin. Uses topical CBD cream that helps a little. During the day and while walking around, no pain. Pain in feet is mainly at night when trying to go to sleep, or sitting watching TV. Prior Treatments and Tests Few years ago had PT for neuropathy. Has treadmill at home that she uses sometimes. Treatment Goals Patient/Caregiver Goals Pt goal is to be able to walk without a walker using a cane, improve endurance and balance and pt agreeable to being placed on a HEP at discharge. 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 Had to sit on bench to rest. Baseline Function- Other Up/down steps using 2 railings . Current Functional Impairments (Reported) Functional Limitations- ADL's Ambs around home occasioinally without walker (kitchen to living room, living room to laudry room and bathrrom). Walks on deck with FWW. Functional Limitations- Mobility/Gait Ambulates with FWW independently. 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 Can go up/down steps using 2 railings. Personal Factors Other Personal Factors That May Effect Neuropathy of the feet. Therapy/Recovery PT-OP-C Subjective Start: 01/31/21 17:56 Freq: Status: Active Protocol: Document 07/15/21 14:19 LRN (Rec: 07/15/21 15:07 LRN [id number]) OP-PT Subjective Patient Comments Patient Comments Today was first day to walk myAchy without a rest stop. States wasn't too bad, but the R groin was sore afterwards, but not today. Patient Questionnaires ABC- Activity Specific Balance Confidence Scale ABC Score 72.5 ABC Functional Impairment 20 to <40% Impaired (Score 61- 80) PT-OP-D Balance Start: 01/31/21 17:56 Freq: Status: Active Protocol: Document 07/15/21 14:19 LRN (Rec: 07/15/21 15:07 LRN [id number]) Tinetti Balance Assessment Sitting Balance Sitting Balance Steady, safe Arising from Chair Ability to Arise Able, w/o using arms Attempts to Arise Arises on 1st attempt Standing Balance Immediate Standing Balance Steady w/o support Standing Balance Steady, wide stance Nudged Response Steady Standing with Eyes Closed Unsteady Turning Step Pattern Turning 360 Degrees Continuous steps Stability Turning 360 Degrees Steady Sitting Down Sitting Down Safe, steady Gait and Step Right Foot Step Length Does not pass stance ft. Right Foot Step Height Completely clears floor Left Foot Step Length Does pass stance foot Left Foot Step Height Completely clears floor Step Description Step Symmetry Step length not equal Step Continuity Steps appear continuous Gait Description Path Description Mild/moderate deviation Trunk Description Marked sway or uses aide Walking Stance Heels together Scoring and Interpretation Tinetti Composite Score (points) 20 Interpretation of Scores At risk for falls (19-24) Tinetti Impairment Rating from Composite 20 to <40% Impaired (Score 17- Score 22) PT-OP-E Functional Tests Start: 01/31/21 17:56 Freq: Status: Active Protocol: Document 06/24/21 10:33 SP (Rec: 06/24/21 11:47 SP [id number]) Functional Tests Tinetti Balance and Gait Assessment Balance Score 13 Gait Score 7 Composite Score 20 Balance Score Impairment Rating 1 to <20% Impaired (Score 13- 15) Gait Score Impairment Rating 40 to <60% Impaired (Score 5-7 ) Composite Score Impairment Rating 20 to <40% Impaired (Score 17- 22) PT-OP-G Mobility & Gait Start: 01/31/21 17:56 Freq: Status: Active Protocol: Document 02/04/21 08:18 LRN (Rec: 02/04/21 09:07 LRN [id number]) OP Gait Assessment Gait Gait Assistance Required: Independent Distance (Feet) 100 Able to Maintain Weight Bearing Status Yes During Gait Assistive Devices Assistive Device Front Wheeled Walker Gait Deviations General Gait Pattern Decreased Stride Length,Flexed Trunk,Lateral Trunk Lean, Narrow Based Gait,Step-to Gait Factors Limiting Gait Function Factors Limiting Gait Function Decreased Activity Tolerance, Decreased Strength,Poor Balance PT-OP-J Posture/Palpation/Skin Start: 01/31/21 17:56 Freq: Status: Active Protocol: Document 02/04/21 08:18 LRN (Rec: 02/04/21 09:07 LRN [id number]) Posture Evaluation Position Standing Head/C-Spine Posture Forward Head T-Spine Posture Increased Kyphosis L-Spine Posture Flattened Shoulder Posture (L) Elevated Pelvis Posture Anteriorly Tilted,Posterior Tilted Weight Distribution Weight Shifted Right Knee Posture (L) Genu Valgus,(R) Genu Valgus Comments Posture Comments Foot deformity FB at hips ~35 deg's, L hip retracted. PT-OP-M Strength Start: 01/31/21 17:56 Freq: Status: Active Protocol: Document 02/04/21 08:18 LRN (Rec: 02/04/21 09:07 LRN [id number]) Hip Strength Hip Manual Muscle Testing Right Flexion (L2) 5 Normal Left Flexion (L2) 4 Good Knee Strength Knee Manual Muscle Testing Right Comments Generally 5/5 Left Comments Generally 5/5 Ankle/Foot Strength Ankle and Foot Manual Muscle Testing Right Comments Generally 5/5 Left Inversion 3 Fair Comments L foot deformity limiting IV mobility. PT-OP-Q Treatments Start: 01/31/21 17:56 Freq: Status: Active Protocol: Document 07/15/21 14:19 LRN (Rec: 07/15/21 15:07 LRN [id number]) Therapeutic Exercises Sitting Exercises trunk flexion Sitting Exercise Name Trunk Flex (ex for in PT only) Resistance Lev 2 TB Reps/Minutes 30x Comments V cuing for pt to breath w/ex and to control movement, rest after ex Standing Exercises Trunk rotation Standing Exercise Name Trunk rot (clasp hands front w / band, elbows tucked into sides) Side bilateral Resistance Lev 2 TB/GB/ CGA-close SBA Reps/Minutes 30 reps Comments no rest break needed. sit <> stands Standing Exercise Name Sit<>stands Reps/Minutes 10x Comments Pt had one uncontrolled sit. Neuro Re-Education Treatment Balance Activities Gait Details Gait with heel strike and toe off Surface Level Equipment GB Reps/Duration 5' Comments Pt had moderate lateral path deviation with gait to the right of ~1.5 ft over 15 foot walk. Foot taps on 6 step Details Alternating step ups Surface 6 step Equipment GB Reps/Duration 10x 2 Comments Lack of control with stepping down with RLE while balancing on the LLE. Nudge training Details isometric pressure and release self recovery Surface Sitting and standing Equipment GB Reps/Duration 3 Comments Training for pt to react to trunk pressure/release to use TA and postural awareness over PAULO by bracing self. More challenged recovery retro than forward SBA with close guarding with reps. Turning Details Turning 360 degress - bilaterally Surface Level Equipment GB Reps/Duration 3x each Comments steps continuous and steady, with no LOB Transfer stability sit<>stand Details Sit<>Stand with stability gained after movement training Surface Level Equipment GB/No use of UE's or AD Reps/Duration multiple reps (see sit to stand ex) Comments cued x 1 for pt to feel chair behind B knees then hip hinge with good slow descent to chair w/out arms. Better turning to L than R. Standing EO, EC Details Standing EO/EC Surface Level Equipment GB Reps/Duration 4' Comments For EC, pt needed close guarding and rest periods between standing attempts. PT-OP-T Assessment and Plan Start: 01/31/21 17:56 Freq: Status: Active Protocol: Document 07/15/21 14:19 LRN (Rec: 07/15/21 15:07 LRN [id number]) Physical Therapy Assessment Goals Four Impairment Decreased endurance (30 sec sit to stand - 9 reps; 5TSTS = 15.7 secs) Short Term Goal (STG) Improve 5TSTS TO 12.6 secs ( Norm for 80-89 yo is 14.8 sec' s) 02/21/21: progressin reps in 16 sec. 03/08/21: 5 reps 19 sec ( moderate retro lean x1 self recovery quick sit into chair no UE support). (With good control w/o use of hands: 03/11/21: 17 secs, 04/02/21: 15.15 secs, 04/09/21 : 13 secs. 05/06/21: 16 secs, 05/31/21: 16 sec, 06/07/21: 14 secs) 06/11/21: 10 secs. STG Duration 03/08/21 (06/11/21: MET GOAL) Jail Goal (LTG) Improve 30 sit to stand to 10- 15 reps (norm for ages 75-79 is 10-15 reps) 06/11/21: 13 reps in 30 secs. 02/21/21: progressin.5 reps in 30 sec. 03/01/21: progressing 10 reps in 30 sec today. 03/08/21: 12 reps in 30 sec no UE support- 1 retro lean quick descent self recovery. 04/02/21: 12 reps arms across chest, stable. LTG Duration 05/05/21 (03/08/21: MET GOAL) Three Impairment Decreased Balance per ARRIETA score of 18 (60<80% impaired) Short Term Goal (STG) Improve standing reach (5 or more safely), and ability to stand and look behind without loss of balance. 03/08/21: porgressing: able to reach 5 outside PAULO without LOB. 05/31/21: 7 outside PAULO. 06/07/21: Standing reach is 6 STG Duration 03/22/21 (03/08/21: GOAL MET) Jail Goal (LTG) ARRIETA balance score of 34-44 ( 20<40% impaired) 03/08/21: 23/56- still high risk for falls. 04/05/21, 06/17/21: 32/56- 40-59 % impaired, moderate risk for falls 07/08/21: ARRIETA score of 37 (20 -39% impaired). LTG Duration 05/05/21 (07/08/21: MET GOAL ) Two Impairment Decreased gait with need of FWW for safety (Tinetti 13 = high fall risk) Short Term Goal (STG) Overall Tinetti score 23-27 (1 <20% impaired) or score 19-24 (medium fall risk, <14 high fall) risk). 02/21/21: progressing , high risk for falls. 03/08/21: 09/17, high risk for falls. 03/11/21: Tinetti score is 18 (20<40% impaired) high risk for falls. 04/02/21: Moderate risk for falls (1-20% impaired). 04/26/21: Tinetti Balance score = 11 (Initial was 6, on was 10) 05/17/21: Tinetti balance score = 8/16 (last assessed 04/26/21 was 11/16 Total score / 40 -60% impaired, 06/24/21: pogressing Tinnetti bal score 13/16, gait score 04/01= 20/ 20- 40% impaired). (07/15/21: Tinetti Score 20/ 28) STG Duration 03/22/21 (07/15/21: NOT MET GOAL, Tinetti Balance Score ) Jail Goal (LTG) Pt will be able to walk without a cane safely 100' or more. 03/08/21: progressing: gait 152 ft using QC required stand rest for recovery 10-15 sec, provided SBA w/ gait belt for safety. 04/02/21: Completed 6MWT in 152ft requiring 3 x3 sec brief stop stand rests for recovery . 04/09/21: completed 6MWT in 192 .5 ft w/ QC with improved more fluid 3 pt patterning. 04/16/21: Gait 150' w QC, 1 standing rest with 4 episodes of increased sway and pt able to maintain balance x 3. 05/10/21:progressing: Therapy and pt has been practicing at home with using GB for safeyt gait without AD on deck with improved foot clearance and initiating arm swing 158 ft this tx CGA. 05/31/21: progressing able to walk 170 ft without AD, CGA with 4 stopped rests contact rail for recovery support. (06/04/21: Pt walked 123' during first pass without assistive device and no loss of balance, slow gait) LTG Duration 05/05/21 (06/04/21: MET GOAL) One Impairment Lacks appropriate HEP. Short Term Goal (STG) Improve ABC score 41-60 (40<60 % impaired). Eval score is 10 .62. 02/26/21: 31% 03/08/21: 71.875 % 04/16/21: 43% of self confidence STG Duration 03/22/21 (04/16/21: MET GOAL) Jail Goal (LTG) Pt will be independent with a self care HEP to promote improving LE strength and balance. 03/05/21 HEP: ankle PF&EV TB, LAQ TB , posture scap squeeze w/ shld ER TB, heel toe walking, self STMs to calf/ quad/HS, eccentric HS curl TB, coordination foot ruano/ ankle IV/EV side taps/. 05/17/21: progressing: pt requires mod- Max cuing for setup and proper form usign hand outs for ankle TB strengthening EV, DF to assist increase LLE foot clearance during gait. (07/15/21: No questions with HEP) LTG Duration 05/05/21 (07/15/21: MET GOAL ) Assessment Summary Assessment The pt overall has done very well with physical therapy. All goals met except for STG # 2 (Tinetti Balance score of 23 -27 indicating 1<20% impaired) . Her Tinetti score today was 20, indicating 20<40% impairment. Tinetti score unchanged from 06/24/21. Physical Therapy Plan Discharge Physical Therapy Discharge Comments Pt is on a HEP that her spouse helps her with and they have started a walking program that will her to improve her overall strength and endurance . The pt could benefit in the future from further balance training if she becomes weakened. Thank you for your referral.
== END 2021-10-22 09:51 ==
LOC: PHYS 14:15
PROVIDERS: PCP Student in an Organized Health Care Education/Training Program; Referring Provider Student in an Organized Health Care Education/Training Program; Visit Provider Student in an Organized Health Care Education/Training Program
DX: R26.2 Difficulty in walking, not elsewhere classified (principal); R29.818 Other symptoms and signs involving the nervous system; M62.81 Muscle weakness (generalized); R29.3 Abnormal posture
CPT/HCPCS: 97110; 97112; 97116; 97140; 97162; 97530; 97535

== ENCOUNTER → 2021-08-02 08:37 | Outpatient (CLI) | payer MEDICARE, OTHER, SELFPAY ==
[2020-11-05 08:11] VITALS: BMI 24.0
[2021-08-02] MEDS: COVID-19 VACC #3, MRNA(MOD) 50 MCG/0.25 ML VIAL IM (08:43)
== END ==
PROVIDERS: PCP Student in an Organized Health Care Education/Training Program; Visit Provider Internal Medicine
DX: Z23 Encounter for immunization (principal)
CPT/HCPCS: 0013A; 91301

== ENCOUNTER → 2021-08-22 14:36 | Outpatient (CLI) | payer MEDICARE, OTHER, SELFPAY ==
[2020-11-05 08:11] VITALS: BMI 24.0
[2021-08-22 15:39] LABS: Hemoglobin A1C% w Est Avg Glu 6.8 % (4.0-6.0)
[2021-08-22 15:45] LABS: Blood Urea Nitrogen 26 mg/dL (7-17); Estimated Glomerular Filt Rate 39.4 mL/min (>60)
[2021-08-22 16:57] LABS: Creatinine Urine Random 34.8 mg/dL
[2021-08-22 17:02] LABS: Microalbumi Creatinin Ratio Ur 172.4 ug/mg CR (<30)
== END ==
PROVIDERS: PCP Student in an Organized Health Care Education/Training Program; Referring Provider Student in an Organized Health Care Education/Training Program; Visit Provider Student in an Organized Health Care Education/Training Program
DX: E11.69 Type 2 diabetes mellitus with other specified complication (principal); E78.5 Hyperlipidemia, unspecified
CPT/HCPCS: 36415; 82043; 82565; 82570; 83036; 84520

== ENCOUNTER 2022-02-23 15:42 | Inpatient (IN) | payer MEDICARE, OTHER, SELFPAY ==
[2020-11-05 08:11] VITALS: BMI 24.0
[2022-02-23] VITALS (9 sets, daily range): BP systolic 123–151; BP diastolic 46–89; PULSE 62–72; RESP 16–22; TEMP 35.7–36.8; O2SAT 96–99; BMI 25.3
--- NOTE | 2022-02-23 16:16 | DI.RAD.S_ITS ---
PROCEDURE: XR CHEST 1V INDICATIONS: fatigue TECHNIQUE: One view of the chest was acquired. COMPARISON: [facility], [place], XR CHEST 1V, 11/30/2019, 16:40. FINDINGS: Surgical changes and devices: None. Lungs and pleura: Lungs are clear. No pleural effusions or pneumothorax. Mediastinum: Mediastinal contours appear normal. Heart size is normal. Bones and chest wall: Marked degenerative changes of the right shoulder. No acute osseous abnormality. No suspicious bony lesions. Overlying soft tissues appear unremarkable. IMPRESSION: No acute cardiopulmonary abnormality. Dictated by: Jero Dickerson D.O. on 02/23/2022 at 15:37 Approved by: Jero Dicekrson D.O. on 02/23/2022 at 15:38
--- NOTE | 2022-02-23 16:17 | ED_ITS ---
HPI - Neuro Symptoms/Deficit <PORFIRIO BhattP - Last Filed: 02/23/22 20:08> General Chief Complaint: Neuro Symptoms/Deficit Stated Complaint: leary-sleeping all the time-hand/finger numbness Time Seen by Provider: 02/23/22 16:02 Source: patient and family Mode of arrival: Wheelchair History of Present Illness HPI Narrative: 79-year-old woman with a history of diabetes, hypertension, hyperlipidemia, chronic kidney disease, diabetic neuropathy, two CVAs, and is a current alcoholic who drinks at least three glasses of wine nightly, does not take any PPI who presents to the emergency department with her reporting at least five days of increased fatigue, sleeping two or three naps each day, denies any other symptom other than increased fatigue. She denies any cough, runny nose, fever, chills, dysuria, urinary frequency, flank pain, abdominal pain, chest pain, shortness of breath, new sensation changes, new weakness, states she has a left-sided deficit from her CVAs and she uses a walker at home. He also states that she has been slightly more unsteady than usual over the last few days. Patient is not on blood thinners, she has not had any falls or trauma, she denies any headache, dizziness, lightheadedness, fever, cough, nausea or vomiting. She states that she is still eating and drinking like normal, has only needed to go to the bathroom once at nighttime if she has. C[place]cha hogue endorses that she has had dark stools although they have been regular and formed. On Anticoagulants: No Related Data Home Medications Medication Instructions Recorded Confirmed propranolol 20 mg tablet 20 mg PO BID 11/30/19 02/23/22 atorvastatin 80 mg tablet 80 mg PO BEDTIME 06/15/20 02/23/22 chlorthalidone 25 mg tablet 12.5 mg PO DAILY 06/15/20 02/23/22 gabapentin 300 mg PO BEDTIME 02/23/22 02/23/22 Previous Rx's Medication Instructions Recorded lisinopril 20 mg tablet 20 mg PO BID #180 tabs 02/20/21 sertraline 50 mg tablet 50 mg PO DAILY #90 tabs 09/05/21 one touch verio test strips #300 ea 11/11/21 insulin detemir U-100 100 unit/mL See Rx Instructions SUBCUT 12/30/21 (3 mL) subcutaneous pen .COMPLEX #15 mL folic acid 1 mg tablet 1 mg PO DAILY #30 tabs 02/25/22 gabapentin 600 mg tablet 600 mg PO BEDTIME #30 tabs 02/25/22 (Neurontin) levetiracetam 250 mg tablet 500 mg PO BID #30 tabs 02/25/22 multivitamin with folic acid 400 1 tab PO DAILY #30 tabs 02/25/22 mcg tablet (Tab-A-Evy) pantoprazole 40 mg tablet,delayed 40 mg PO DAILY #30 tabs 02/25/22 release (Protonix) thiamine mononitrate (vit B1) 100 100 mg PO DAILY #30 tabs 02/25/22 mg tablet Allergies Allergy/AdvReac Type Severity Reaction Status Date / Time oxycodone [From Percocet] AdvReac Nausea Verified 02/25/22 07:41 Review of Systems <HAYLEE Bhatt - Last Filed: 02/23/22 20:08> Review of Systems Narrative: General: denies fever, chills, new weakness, mental status changes, reports incr eased fatigue and napping. Head/Neck: denies headache, neck pain Eyes: denies visual changes, eye pain Cardio: denies chest pain, palpitations Respiratory: denies shortness of breath, cough GI: denies abdominal pain, nausea, vomiting, or diarrhea, endorses having a solid formed dark stool yesterday and today : denies dysuria, hematuria or flank pain MSK: denies new joint pain, muscle weakness or swelling Skin: denies rash, itching or wound Neuro: denies numbness, tingling, dizziness Hematologic/Lymphatic On Anticoagulants: No Patient History <HAYLEE Bhatt - Last Filed: 02/23/22 20:08> Medical History Acute post-hemorrhagic anemia Alcohol abuse Anxiety Cellulitis of hand, right Neuropathy Panic attack Vitamin D deficiency Surgical History History of History of ectopic Family History Father No problems noted. Mother Dementia Social History household members: spouse lives independently: Yes Smoking Status: Former smoker alcohol intake: current Smoking Status: Former smoker alcohol intake frequency: 3 or more drinks per day Alcohol type: wine Substance Use Type: does not use Exam <HAYLEE Bhatt - Last Filed: 02/23/22 20:08> Narrative Exam Narrative: Independently reviewed vitals signs and nursing notes. General: cooperative, comfortable, in no acute distress, well groomed, generally Head: atraumatic, symmetrical facial expressions Neck: supple Eyes: equal round and reactive, EOMI, conjunctiva normal Nose: nares patent, no rhinorrhea Mouth/Throat: moist mucus membranes Cardiovascular: regular rate and rhythm, no peripheral edema, warm extremities, Respiratory: normal effort, able to speak in complete sentences, no audible wheezing, stridor, or rales. No retractions or tachypnea. GI: abdomen soft, nontender to palpation, nondistended, no masses, no exquisite tenderness with exam, without guarding or rebound. MSK: moves all extremities, neurovascularly intact, generalized weakness, no significant deficit or new unilateral weakness, normal tone Skin: brisk capillary refill, no rash, no erythema Neuro: normal speech and cognition, A&O x3 Psych: mental status is grossly normal, congruent mood, normal affect, pleasant and cooperative Initial Vital Signs Initial Vital Signs: Vital Signs Temperature 98.2 F 02/23/22 16:01 Pulse Rate 71 02/23/22 16:01 Respiratory Rate 22 02/23/22 16:01 Blood Pressure 123/89 02/23/22 16:01 Pulse Oximetry 96 02/23/22 16:01 Oxygen Delivery Method 02/23/22 16:01 <Yohannes Jeff DO - Last Filed: 02/28/22 17:54> Initial Vital Signs Initial Vital Signs: Vital Signs Temperature 98.2 F 02/23/22 16:01 Pulse Rate 71 02/23/22 16:01 Respiratory Rate 22 02/23/22 16:01 Blood Pressure 123/89 02/23/22 16:01 Pulse Oximetry 96 02/23/22 16:01 Oxygen Delivery Method 02/23/22 16:01 Course <HAYLEE Bhatt - Last Filed: 02/23/22 20:08> Orders Ordered: Discontinued Medications Acetaminophen (Acetaminophen 325 Mg Tablet) 650 mg PO Q6HR PRN PRN Reason: Fever/Mild Pain (1-3) Atorvastatin Calcium (Atorvastatin 20 Mg Tablet) 80 mg PO BEDTIME [facility] Last Admin: 02/24/22 20:30 Dose: 80 mg Documented By: Admin: 02/23/22 20:55 Dose: 80 mg Documented By: [facility] Dextrose (Dextrose 50 % In Water 25 Gm/50 Ml Syringe) 25 gm IV PRN PRN; Protocol PRN Reason: Hypoglycemia Fentanyl (Fentanyl 100 Mcg/2 Ml Inj) 0 mcg IV Q5M PRN PRN Reason: Pain, Moderate (4-6) Folic Acid (Folic Acid 1 Mg Tablet) 1 mg PO DAILY [facility] Last Admin: 02/25/22 09:49 Dose: Not Given Documented By: Admin: 02/24/22 08:16 Dose: 1 mg Documented By: CLEMENCIA Gabapentin (Gabapentin 600 Mg Tablet) 600 mg PO BEDTIME [facility] Last Admin: 02/24/22 20:30 Dose: 600 mg Documented By: Admin: 02/23/22 20:55 Dose: 600 mg Documented By: [facility] Sodium Chloride (Normal Saline 0.9%) 250 mls @ 21 mls/hr IV CONT [facility] Last Infusion: 02/23/22 18:46 Dose: 0 mls/hr Documented By: Admin: 02/23/22 18:17 Dose: 21 mls/hr Documented By: ALLEN Sodium Chloride (Normal Saline 0.9%) 1,000 mls @ 50 mls/hr IV CONT [facility] Last Infusion: 02/25/22 07:02 Dose: 0 mls/hr Documented By: Admin: 02/24/22 20:46 Dose: 50 mls/hr Documented By: Infusion: 02/24/22 20:46 Dose: 50 mls/hr Documented By: Admin: 02/24/22 01:30 Dose: 50 mls/hr Documented By: Admin: 02/23/22 20:12 Dose: Not Given Documented By: [facility] Lactated Ringer's (Lactated Ringers) 1,000 mls @ 42 mls/hr IV NOW ONE Stop: 02/26/22 07:27 Last Admin: 02/25/22 07:40 Dose: 42 mls/hr Documented By: JUAN RAMON Insulin Glargine (Insulin Glargine 100 Unit/Ml 3ml Pen) 12 unit SUBCUT BEDTIME [facility] Last Admin: 02/24/22 20:32 Dose: 12 unit Documented By: ANAHI Co-signed By: DAVE Admin: 02/23/22 20:59 Dose: 12 unit Documented By: ANAHI Co-signed By: REGINE Insulin Glargine (Insulin Glargine 100 Unit/Ml 3ml Pen) 18 unit SUBCUT DAILY [facility] Last Admin: 02/25/22 11:08 Dose: 18 unit Documented By: MITESH Co-signed By: YOUNG Admin: 02/24/22 09:03 Dose: 18 unit Documented By: CLEMENCIA Co-signed By: DEE DEE Insulin Human Lispro (Insulin Lispro 100 Unit/Ml 3ml Vial) 0 unit SUBCUT Q6H [facility]; Protocol Last Admin: 02/25/22 06:05 Dose: 1 unit Documented By: ANAHI Co-signed By: SUZAN Admin: 02/25/22 00:14 Dose: Not Given Documented By: Admin: 02/24/22 16:52 Dose: Not Given Documented By: Admin: 02/24/22 13:37 Dose: Not Given Documented By: Admin: 02/24/22 06:26 Dose: 1 unit Documented By: ANAHI Co-signed By: Admin: 02/24/22 00:16 Dose: Not Given Documented By: Admin: 02/23/22 20:59 Dose: 1 unit Documented By: ANAHI Co-signed By: REGINE Levetiracetam (Levetiracetam 250 Mg Tablet) 500 mg PO BID [facility] Last Admin: 02/25/22 09:50 Dose: Not Given Documented By: Admin: 02/24/22 20:30 Dose: 500 mg Documented By: Admin: 02/24/22 08:16 Dose: 500 mg Documented By: Admin: 02/23/22 20:55 Dose: 500 mg Documented By: ANAHI Lisinopril (Lisinopril 20 Mg Tablet) 20 mg PO BID [facility] Lorazepam (Lorazepam 2 Mg/Ml Inj) 0 mg IV CIWAPRN PRN; Protocol PRN Reason: Alcohol Withdrawal Melatonin (Melatonin 3 Mg Tablet) 3 mg PO BEDTIME PRN PRN Reason: Insomnia Last Admin: 02/24/22 20:29 Dose: 3 mg Documented By: Admin: 02/24/22 02:44 Dose: 3 mg Documented By: ANAHI Multivitamins (Multivitamin 1 Tablet) 1 tab PO DAILY [facility] Last Admin: 02/25/22 09:50 Dose: Not Given Documented By: Admin: 02/24/22 08:16 Dose: 1 tab Documented By: CLEMENCIA Naloxone HCl (Naloxone 0.4 Mg/Ml Vial) 0.2 mg IV Q2MIN PRN PRN Reason: Opiate Reversal Non-Formulary Medication (Gabapentin) 300 mg PO BEDTIME [facility] Ondansetron HCl (Ondansetron 4 Mg/2 Ml Inj) 4 mg IV Q6HR PRN PRN Reason: Nausea And Vomiting Ondansetron HCl (Ondansetron 4 Mg/2 Ml Inj) 4 mg IV NOW PRN PRN Reason: Nausea And Vomiting Pantoprazole Sodium (Pantoprazole 40 Mg Vial) 40 mg IV NOW ONE Stop: 02/23/22 17:14 Last Admin: 02/23/22 17:23 Dose: 40 mg Documented By: ALLEN Pantoprazole Sodium (Pantoprazole 40 Mg Vial) 40 mg IV NOW ONE Stop: 02/23/22 17:29 Last Admin: 02/23/22 18:16 Dose: 40 mg Documented By: ALLEN Pantoprazole Sodium (Pantoprazole 40 Mg Vial) 40 mg IV BID [facility] Last Admin: 02/25/22 09:31 Dose: 40 mg Documented By: Admin: 02/24/22 20:30 Dose: 40 mg Documented By: Admin: 02/24/22 08:16 Dose: 40 mg Documented By: CLEMENCIA Propranolol HCl (Propranolol 10 Mg Tablet) 20 mg PO BID [facility] Last Admin: 02/25/22 09:50 Dose: Not Given Documented By: Admin: 02/24/22 20:30 Dose: 20 mg Documented By: Admin: 02/24/22 08:16 Dose: 20 mg Documented By: Admin: 02/23/22 20:55 Dose: 20 mg Documented By: ANAHI Sertraline HCl (Sertraline 50 Mg Tablet) 50 mg PO DAILY [facility] Last Admin: 02/25/22 09:50 Dose: Not Given Documented By: Admin: 02/24/22 08:16 Dose: 50 mg Documented By: CLEMENCIA Sodium Chloride (Sodium Chloride 0.9% Flush) 10 ml IV PRN PRN PRN Reason: Flush Thiamine HCl (Thiamine 100 Mg Tablet) 100 mg PO DAILY [facility] Stop: 02/27/22 09:01 Last Admin: 02/25/22 09:36 Dose: 100 mg Documented By: Admin: 02/24/22 08:16 Dose: 100 mg Documented By: CLEMENCIA Consultations Consultation #1: Consultation with Dr. Blanton from General surgery who understands that patient has a positive Hemoccult, symptomatic anemia with a history of alcoholism, and likely has an upper GI bleed. Consultation for endoscopy, he accepts and states that he will do this tomorrow. Vital Signs Vital signs: Vital Signs - 8 hr 02/23/22 16:01 Temperature 98.2 F Pulse Rate 71 Respiratory Rate 22 Blood Pressure 123/89 Pulse Oximetry 96 <Yohannes Jeff DO - Last Filed: 02/28/22 17:54> Orders Ordered: Discontinued Medications Acetaminophen (Acetaminophen 325 Mg Tablet) 650 mg PO Q6HR PRN PRN Reason: Fever/Mild Pain (1-3) Atorvastatin Calcium (Atorvastatin 20 Mg Tablet) 80 mg PO BEDTIME [facility] Last Admin: 02/24/22 20:30 Dose: 80 mg Documented By: Admin: 02/23/22 20:55 Dose: 80 mg Documented By: ANAHI Dextrose (Dextrose 50 % In Water 25 Gm/50 Ml Syringe) 25 gm IV PRN PRN; Protocol PRN Reason: Hypoglycemia Fentanyl (Fentanyl 100 Mcg/2 Ml Inj) 0 mcg IV Q5M PRN PRN Reason: Pain, Moderate (4-6) Folic Acid (Folic Acid 1 Mg Tablet) 1 mg PO DAILY [facility] Last Admin: 02/25/22 09:49 Dose: Not Given Documented By: Admin: 02/24/22 08:16 Dose: 1 mg Documented By: CLEMENCIA Gabapentin (Gabapentin 600 Mg Tablet) 600 mg PO BEDTIME [facility] Last Admin: 02/24/22 20:30 Dose: 600 mg Documented By: Admin: 02/23/22 20:55 Dose: 600 mg Documented By: [facility] Sodium Chloride (Normal Saline 0.9%) 250 mls @ 21 mls/hr IV CONT [facility] Last Infusion: 02/23/22 18:46 Dose: 0 mls/hr Documented By: Admin: 02/23/22 18:17 Dose: 21 mls/hr Documented By: NR Sodium Chloride (Normal Saline 0.9%) 1,000 mls @ 50 mls/hr IV CONT [facility] Last Infusion: 02/25/22 07:02 Dose: 0 mls/hr Documented By: Admin: 02/24/22 20:46 Dose: 50 mls/hr Documented By: Infusion: 02/24/22 20:46 Dose: 50 mls/hr Documented By: Admin: 02/24/22 01:30 Dose: 50 mls/hr Documented By: Admin: 02/23/22 20:12 Dose: Not Given Documented By: ANAHI Lactated Ringer's (Lactated Ringers) 1,000 mls @ 42 mls/hr IV NOW ONE Stop: 02/26/22 07:27 Last Admin: 02/25/22 07:40 Dose: 42 mls/hr Documented By: JUAN RAMON Insulin Glargine (Insulin Glargine 100 Unit/Ml 3ml Pen) 12 unit SUBCUT BEDTIME [facility] Last Admin: 02/24/22 20:32 Dose: 12 unit Documented By: ANAHI Co-signed By: DAEV Admin: 02/23/22 20:59 Dose: 12 unit Documented By: [facility] Co-signed By: REGINE Insulin Glargine (Insulin Glargine 100 Unit/Ml 3ml Pen) 18 unit SUBCUT DAILY [facility] Last Admin: 02/25/22 11:08 Dose: 18 unit Documented By: MITESH Co-signed By: YOUNG Admin: 02/24/22 09:03 Dose: 18 unit Documented By: CLEMENCIA Co-signed By: DEE DEE Insulin Human Lispro (Insulin Lispro 100 Unit/Ml 3ml Vial) 0 unit SUBCUT Q6H [facility]; Protocol Last Admin: 02/25/22 06:05 Dose: 1 unit Documented By: ANAHI Co-signed By: SUZAN Admin: 02/25/22 00:14 Dose: Not Given Documented By: Admin: 02/24/22 16:52 Dose: Not Given Documented By: Admin: 02/24/22 13:37 Dose: Not Given Documented By: Admin: 02/24/22 06:26 Dose: 1 unit Documented By: ANAHI Co-signed By: Admin: 02/24/22 00:16 Dose: Not Given Documented By: Admin: 02/23/22 20:59 Dose: 1 unit Documented By: ANAHI Co-signed By: REGINE Levetiracetam (Levetiracetam 250 Mg Tablet) 500 mg PO BID [facility] Last Admin: 02/25/22 09:50 Dose: Not Given Documented By: Admin: 02/24/22 20:30 Dose: 500 mg Documented By: Admin: 02/24/22 08:16 Dose: 500 mg Documented By: Admin: 02/23/22 20:55 Dose: 500 mg Documented By: ANAHI Lisinopril (Lisinopril 20 Mg Tablet) 20 mg PO BID [facility] Lorazepam (Lorazepam 2 Mg/Ml Inj) 0 mg IV CIWAPRN PRN; Protocol PRN Reason: Alcohol Withdrawal Melatonin (Melatonin 3 Mg Tablet) 3 mg PO BEDTIME PRN PRN Reason: Insomnia Last Admin: 02/24/22 20:29 Dose: 3 mg Documented By: Admin: 02/24/22 02:44 Dose: 3 mg Documented By: ANAHI Multivitamins (Multivitamin 1 Tablet) 1 tab PO DAILY [facility] Last Admin: 02/25/22 09:50 Dose: Not Given Documented By: Admin: 02/24/22 08:16 Dose: 1 tab Documented By: CLEMENCIA Naloxone HCl (Naloxone 0.4 Mg/Ml Vial) 0.2 mg IV Q2MIN PRN PRN Reason: Opiate Reversal Non-Formulary Medication (Gabapentin) 300 mg PO BEDTIME [facility] Ondansetron HCl (Ondansetron 4 Mg/2 Ml Inj) 4 mg IV Q6HR PRN PRN Reason: Nausea And Vomiting Ondansetron HCl (Ondansetron 4 Mg/2 Ml Inj) 4 mg IV NOW PRN PRN Reason: Nausea And Vomiting Pantoprazole Sodium (Pantoprazole 40 Mg Vial) 40 mg IV NOW ONE Stop: 02/23/22 17:14 Last Admin: 02/23/22 17:23 Dose: 40 mg Documented By: ALLEN Pantoprazole Sodium (Pantoprazole 40 Mg Vial) 40 mg IV NOW ONE Stop: 02/23/22 17:29 Last Admin: 02/23/22 18:16 Dose: 40 mg Documented By: ALLEN Pantoprazole Sodium (Pantoprazole 40 Mg Vial) 40 mg IV BID [facility] Last Admin: 02/25/22 09:31 Dose: 40 mg Documented By: Admin: 02/24/22 20:30 Dose: 40 mg Documented By: Admin: 02/24/22 08:16 Dose: 40 mg Documented By: CLEMENCIA Propranolol HCl (Propranolol 10 Mg Tablet) 20 mg PO BID [facility] Last Admin: 02/25/22 09:50 Dose: Not Given Documented By: Admin: 02/24/22 20:30 Dose: 20 mg Documented By: Admin: 02/24/22 08:16 Dose: 20 mg Documented By: Admin: 02/23/22 20:55 Dose: 20 mg Documented By: ANAHI Sertraline HCl (Sertraline 50 Mg Tablet) 50 mg PO DAILY [facility] Last Admin: 02/25/22 09:50 Dose: Not Given Documented By: Admin: 02/24/22 08:16 Dose: 50 mg Documented By: CLEMENCIA Sodium Chloride (Sodium Chloride 0.9% Flush) 10 ml IV PRN PRN PRN Reason: Flush Thiamine HCl (Thiamine 100 Mg Tablet) 100 mg PO DAILY [facility] Stop: 02/27/22 09:01 Last Admin: 02/25/22 09:36 Dose: 100 mg Documented By: Admin: 02/24/22 08:16 Dose: 100 mg Documented By: CLEMENCIA Vital Signs Vital signs: Vital Signs - 8 hr 02/23/22 16:01 Temperature 98.2 F Pulse Rate 71 Respiratory Rate 22 Blood Pressure 123/89 Pulse Oximetry 96 MDM - Neuro Symptoms/Deficit <Jocelyn Null [facility] - Last Filed: 02/23/22 20:08> Lab Data Result diagrams: 02/25/22 05:05 02/25/22 05:05 Labs: Lab Results 02/23/22 02/23/22 02/23/22 Range/Units 16:35 16:35 16:35 WBC 10.1 (4.5-11.0) X10^3/uL RBC 2.25 L (4.0-5.2) X10^6/uL Hgb 7.7 L (12.0-16.0) g/dL Hct 22.1 L (36-46) % MCV 98.0 (80-100) fL MCH 34.2 H (26-34) PG MCHC 34.9 (30-36) % RDW 13.5 (11.6-14.8) % Plt Count 254 (150-400) X10^3/uL Neut % (Auto) 76.4 H (50-75) % Lymph % (Auto) 14.9 L (25-40) % [place] % (Auto) 6.6 (3-14) % Eos % (Auto) 1.6 L (2-4) % Baso % (Auto) 0.5 (0-2) % Neut # (Auto) 7700 H (5676-6165) /uL Lymph # (Auto) 1500 (1322-6115) /uL [place] # (Auto) 700 (0-900) /uL Eos # (Auto) 200 (0-450) /uL Baso # (Auto) 0 (0-100) /uL PT (10.1-12.7) SECONDS INR (0.9-1.3) Sodium 136 L (137-145) mmol/L Potassium 4.1 (3.4-5.1) mmol/L Chloride 100 (98-107) mmol/L Carbon Dioxide 26 (22-32) mmol/L BUN 73 H (7-17) mg/dL Creatinine 1.48 H (0.52-1.04) mg/dL Estimated GFR 36 L (>60) mL/min BUN/Creatinine Ratio 49.3 H (6-22) Glucose 180 H (80-110) mg/dL Calcium 9.0 (8.4-10.2) mg/dL Magnesium 1.9 (1.6-2.3) mg/dL Total Bilirubin 0.4 (0.2-1.3) mg/dL AST 34 (14-36) IU/L ALT 14 (<35) IU/L Alkaline Phosphatase 91 (38-126) U/L NT-Pro-B Natriuret Pep 369 (<450) pg/mL Total Protein 6.6 (6.3-8.2) g/dL Albumin 3.9 (3.5-5.0) g/dL Globulin 2.7 (1.7-4.1) g/dL Albumin/Globulin Ratio 1.4 (1.0-2.8) Procalcitonin (<0.5) ng/mL TSH 1.69 (0.47-4.68) uIU/mL Urine Color Urine Appearance Urine pH (4.5-8.0) Ur Specific [place] (1.000-1.035) Urine Protein (Negative) Urine Glucose (UA) (Negative) g/dL Urine Ketones (NEGATIVE) Urine Occult Blood (Negative) Urine Nitrate (Negative) Urine Bilirubin (NEGATIVE) Urine Urobilinogen (0.2) E.U./dL Ur Leukocyte Esterase (NEGATIVE) Urine RBC (0-5/HPF) Urine WBC (0-5/HPF) Ur Squamous Epith Cells (0-5/HPF) Urine Bacteria (None) Ur Culture Indicated? Chlamy pneumoniae PCR (Not Detect) Adenovirus (PCR) (Not Detect) B. pertussis DNA (PCR) (Not Detecte) B.parapertussis DNA PCR (Not Detecte) Coronavirus OC43 (PCR) (Not Detect) Coronavirus HKU1 (PCR) (Not Detect) Coronavirus 229E (PCR) (Not Detect) SARS-CoV-2 (PCR) (Not Detecte) Coronavirus NL63 (PCR) (Not Detect) Human Metapneumovir PCR (Not Detect) Influenza Type A (PCR) (Not Detect) Influenza Type B (PCR) (Not Detect) M. pneumoniae (PCR) (Not Detect) Parainfluenza 1 (PCR) (Not Detect) Parainfluenza 2 (PCR) (Not Detect) Parainfluenza 3 (PCR) (Not Detect) Parainfluenza 4 (PCR) (Not Detect) RSV (PCR) (Not Detect) Entero/Rhino (PCR) (Not Detect) 02/23/22 02/23/22 02/23/22 Range/Units 16:35 16:35 16:45 WBC (4.5-11.0) X10^3/uL RBC (4.0-5.2) X10^6/uL Hgb (12.0-16.0) g/dL Hct (36-46) % MCV (80-100) fL MCH (26-34) PG MCHC (30-36) % RDW (11.6-14.8) % Plt Count (150-400) X10^3/uL Neut % (Auto) (50-75) % Lymph % (Auto) (25-40) % [place] % (Auto) (3-14) % Eos % (Auto) (2-4) % Baso % (Auto) (0-2) % Neut # (Auto) (9555-3425) /uL Lymph # (Auto) (0650-7346) /uL [place] # (Auto) (0-900) /uL Eos # (Auto) (0-450) /uL Baso # (Auto) (0-100) /uL PT 10.9 (10.1-12.7) SECONDS INR 1.0 (0.9-1.3) Sodium (137-145) mmol/L Potassium (3.4-5.1) mmol/L Chloride (98-107) mmol/L Carbon Dioxide (22-32) mmol/L BUN (7-17) mg/dL Creatinine (0.52-1.04) mg/dL Estimated GFR (>60) mL/min BUN/Creatinine Ratio (6-22) Glucose (80-110) mg/dL Calcium (8.4-10.2) mg/dL Magnesium (1.6-2.3) mg/dL Total Bilirubin (0.2-1.3) mg/dL AST (14-36) IU/L ALT (<35) IU/L Alkaline Phosphatase (38-126) U/L NT-Pro-B Natriuret Pep (<450) pg/mL Total Protein (6.3-8.2) g/dL Albumin (3.5-5.0) g/dL Globulin (1.7-4.1) g/dL Albumin/Globulin Ratio (1.0-2.8) Procalcitonin 0.16 (<0.5) ng/mL TSH (0.47-4.68) uIU/mL Urine Color Urine Appearance Urine pH (4.5-8.0) Ur Specific [place] (1.000-1.035) Urine Protein (Negative) Urine Glucose (UA) (Negative) g/dL Urine Ketones (NEGATIVE) Urine Occult Blood (Negative) Urine Nitrate (Negative) Urine Bilirubin (NEGATIVE) Urine Urobilinogen (0.2) E.U./dL Ur Leukocyte Esterase (NEGATIVE) Urine RBC (0-5/HPF) Urine WBC (0-5/HPF) Ur Squamous Epith Cells (0-5/HPF) Urine Bacteria (None) Ur Culture Indicated? Chlamy pneumoniae PCR Not detected (Not Detect) Adenovirus (PCR) Not detected (Not Detect) B. pertussis DNA (PCR) Not detected (Not Detecte) B.parapertussis DNA PCR Not detected (Not Detecte) Coronavirus OC43 (PCR) Not detected (Not Detect) Coronavirus HKU1 (PCR) Not detected (Not Detect) Coronavirus 229E (PCR) Not detected (Not Detect) SARS-CoV-2 (PCR) Not detected (Not Detecte) Coronavirus NL63 (PCR) Not detected (Not Detect) Human Metapneumovir PCR Not detected (Not Detect) Influenza Type A (PCR) Not detected (Not Detect) Influenza Type B (PCR) Not detected (Not Detect) M. pneumoniae (PCR) Not detected (Not Detect) Parainfluenza 1 (PCR) Not detected (Not Detect) Parainfluenza 2 (PCR) Not detected (Not Detect) Parainfluenza 3 (PCR) Not detected (Not Detect) Parainfluenza 4 (PCR) Not detected (Not Detect) RSV (PCR) Not detected (Not Detect) Entero/Rhino (PCR) Not detected (Not Detect) 02/23/22 Range/Units 17:00 WBC (4.5-11.0) X10^3/uL RBC (4.0-5.2) X10^6/uL Hgb (12.0-16.0) g/dL Hct (36-46) % MCV (80-100) fL MCH (26-34) PG MCHC (30-36) % RDW (11.6-14.8) % Plt Count (150-400) X10^3/uL Neut % (Auto) (50-75) % Lymph % (Auto) (25-40) % [place] % (Auto) (3-14) % Eos % (Auto) (2-4) % Baso % (Auto) (0-2) % Neut # (Auto) (2782-8918) /uL Lymph # (Auto) (0129-9205) /uL [place] # (Auto) (0-900) /uL Eos # (Auto) (0-450) /uL Baso # (Auto) (0-100) /uL PT (10.1-12.7) SECONDS INR (0.9-1.3) Sodium (137-145) mmol/L Potassium (3.4-5.1) mmol/L Chloride (98-107) mmol/L Carbon Dioxide (22-32) mmol/L BUN (7-17) mg/dL Creatinine (0.52-1.04) mg/dL Estimated GFR (>60) mL/min BUN/Creatinine Ratio (6-22) Glucose (80-110) mg/dL Calcium (8.4-10.2) mg/dL Magnesium (1.6-2.3) mg/dL Total Bilirubin (0.2-1.3) mg/dL AST (14-36) IU/L ALT (<35) IU/L Alkaline Phosphatase (38-126) U/L NT-Pro-B Natriuret Pep (<450) pg/mL Total Protein (6.3-8.2) g/dL Albumin (3.5-5.0) g/dL Globulin (1.7-4.1) g/dL Albumin/Globulin Ratio (1.0-2.8) Procalcitonin (<0.5) ng/mL TSH (0.47-4.68) uIU/mL Urine Color Yellow Urine Appearance Clear Urine pH 5.5 (4.5-8.0) Ur Specific [place] <=1.005 (1.000-1.035) Urine Protein Negative (Negative) Urine Glucose (UA) Negative (Negative) g/dL Urine Ketones Negative (NEGATIVE) Urine Occult Blood Negative (Negative) Urine Nitrate Negative (Negative) Urine Bilirubin Negative (NEGATIVE) Urine Urobilinogen 0.2 (0.2) E.U./dL Ur Leukocyte Esterase Negative (NEGATIVE) Urine RBC 0-1/hpf (0-5/HPF) Urine WBC 0-1/hpf (0-5/HPF) Ur Squamous Epith Cells 10-30 /hpf H (0-5/HPF) Urine Bacteria Moderate (10-30) H (None) Ur Culture Indicated? Cult not indicated Chlamy pneumoniae PCR (Not Detect) Adenovirus (PCR) (Not Detect) B. pertussis DNA (PCR) (Not Detecte) B.parapertussis DNA PCR (Not Detecte) Coronavirus OC43 (PCR) (Not Detect) Coronavirus HKU1 (PCR) (Not Detect) Coronavirus 229E (PCR) (Not Detect) SARS-CoV-2 (PCR) (Not Detecte) Coronavirus NL63 (PCR) (Not Detect) Human Metapneumovir PCR (Not Detect) Influenza Type A (PCR) (Not Detect) Influenza Type B (PCR) (Not Detect) M. pneumoniae (PCR) (Not Detect) Parainfluenza 1 (PCR) (Not Detect) Parainfluenza 2 (PCR) (Not Detect) Parainfluenza 3 (PCR) (Not Detect) Parainfluenza 4 (PCR) (Not Detect) RSV (PCR) (Not Detect) Entero/Rhino (PCR) (Not Detect) Point of Care Testing Stool Occult Blood Positive Glucose POC 202 Urine Dip Bedside Urine Glucose Negative Bedside Urine Bilirubin - Negative Bedside Urine Ketone - Negative Urine Specific [place] 1.015 Bedside Urine Occult Blood - Negative Bedside Urine pH 6.0 Bedside Urine Protein - Negative Bedside Urine Urobilinogen - Negative Bedside Urine Nitrite - Negative Bedside Urine Leukocytes - Negative Esterase Imaging Data Chest x-ray: Radiologist's Impression: PROCEDURE:? XR CHEST 1V ? INDICATIONS:? fatigue ? TECHNIQUE:? One view of the chest was acquired.? ? COMPARISON:? [facility], , XR CHEST 1V, 11/30/2019, 16:40. ? FINDINGS:? ? Surgical changes and devices:? None.? ? Lungs and pleura:? Lungs are clear.? No pleural effusions or pneumothorax.? ? Mediastinum:? Mediastinal contours appear normal.? Heart size is normal.? ? Bones and chest wall:? Marked degenerative changes of the right shoulder.? No acute osseous abnormality.? No suspicious bony lesions.? Overlying soft tissues appear unremarkable.? ? IMPRESSION:? ? No acute cardiopulmonary abnormality. ? ? Dictated by: Jero Dickerson D.O. on 02/23/2022 at 15:37 ? ? Approved by: Jero Dickerson D.O. on 02/23/2022 at 15:38 ? ECG Data Interpretation: EKG independently reviewed by myself and reveals normal sinus rhythm at 67 bpm with regular axis and intervals. No STEMI, ST segment changes, arrhythmia, or acute ischemic changes. MDM Narrative Medical decision making narrative: This is an 81-year-old female with history of alcoholism of 3+ drinks per day, diabetes-insulin dependent, CKD, hyperlipidemia, peripheral neuropathy secondary to diabetes, gout, anxiety hypertension who presents to the emergency department with chief complaint of fatigue and frequent napping over the last week without any other symptom. Patient endorses drinking at least three glasses of wine each day, this is normal for her and she endorses being an alcoholic. She denies taking any PPI or omeprazole. Lab work is significant for hemoglobin of 7.7 at 1635 with a repeat at 1810 7.5. This is decreased from her last results on 06/1002/08/2012. Her hematocrit is also markedly low compared to her baseline of 35.1. Today it was 22.1 at 1635 and at 1810, it was 21.1. Hemoccult was positive for blood., nausea vomiting, rectal pain, hemorrhoids, on exam there was no hemorrhoid or hemorrhoidal bleeding, her stool was very dark and appeared like melena. Type and cross was completed, transfusion of one pack of RBCs for symptomatic anemia. Respiratory panel was negative for all tested viruses, INR is one, no significant electrolyte abnormalities, creatinine is elevated above her baseline of 1.2 to 1.48, glucose is 180, no elevation in liver enzymes or total bilirubin, BNP is 369, procalcitonin is 0.16, TSH is 1.69, urine is negative for rbc's, wbc's and nitrites but has moderate bacteria which is likely contamination. Chest x-ray without acute abnormality. EKG shows sinus rhythm at 67 beats per minute without any ST changes or arrhythmia. Consultation with Dr. Blanton for patient's symptomatic anemia with positive Hemoccult finding, he reports he will perform endoscopy tomorrow, consultation with Dr. Springer for admission, he accepts patient for admission as well. Blood transfusion is pending type and screen and delivery from blood bank. Patient remains hemodynamically stable without tachycardia, tachypnea, hypoxia. Patient was transferred to the room 220 under the care of Medicine with a general surgery consult, a formal consultation was placed with General surgery for Dr. Blanton. <Yohannes Jeff, - Last Filed: 02/28/22 17:54> Lab Data Labs: Lab Results 02/23/22 02/23/22 02/23/22 Range/Units 16:35 16:35 16:35 WBC 10.1 (4.5-11.0) X10^3/uL RBC 2.25 L (4.0-5.2) X10^6/uL Hgb 7.7 L (12.0-16.0) g/dL Hct 22.1 L (36-46) % MCV 98.0 (80-100) fL MCH 34.2 H (26-34) PG MCHC 34.9 (30-36) % RDW 13.5 (11.6-14.8) % Plt Count 254 (150-400) X10^3/uL Neut % (Auto) 76.4 H (50-75) % Lymph % (Auto) 14.9 L (25-40) % [place] % (Auto) 6.6 (3-14) % Eos % (Auto) 1.6 L (2-4) % Baso % (Auto) 0.5 (0-2) % Neut # (Auto) 7700 H (9470-9168) /uL Lymph # (Auto) 1500 (2810-9293) /uL [place] # (Auto) 700 (0-900) /uL Eos # (Auto) 200 (0-450) /uL Baso # (Auto) 0 (0-100) /uL PT (10.1-12.7) SECONDS INR (0.9-1.3) Sodium 136 L (137-145) mmol/L Potassium 4.1 (3.4-5.1) mmol/L Chloride 100 (98-107) mmol/L Carbon Dioxide 26 (22-32) mmol/L BUN 73 H (7-17) mg/dL Creatinine 1.48 H (0.52-1.04) mg/dL Estimated GFR 36 L (>60) mL/min BUN/Creatinine Ratio 49.3 H (6-22) Glucose 180 H (80-110) mg/dL Calcium 9.0 (8.4-10.2) mg/dL Magnesium 1.9 (1.6-2.3) mg/dL Total Bilirubin 0.4 (0.2-1.3) mg/dL AST 34 (14-36) IU/L ALT 14 (<35) IU/L Alkaline Phosphatase 91 (38-126) U/L NT-Pro-B Natriuret Pep 369 (<450) pg/mL Total Protein 6.6 (6.3-8.2) g/dL Albumin 3.9 (3.5-5.0) g/dL Globulin 2.7 (1.7-4.1) g/dL Albumin/Globulin Ratio 1.4 (1.0-2.8) Procalcitonin (<0.5) ng/mL TSH 1.69 (0.47-4.68) uIU/mL Urine Color Urine Appearance Urine pH (4.5-8.0) Ur Specific [place] (1.000-1.035) Urine Protein (Negative) Urine Glucose (UA) (Negative) g/dL Urine Ketones (NEGATIVE) Urine Occult Blood (Negative) Urine Nitrate (Negative) Urine Bilirubin (NEGATIVE) Urine Urobilinogen (0.2) E.U./dL Ur Leukocyte Esterase (NEGATIVE) Urine RBC (0-5/HPF) Urine WBC (0-5/HPF) Ur Squamous Epith Cells (0-5/HPF) Urine Bacteria (None) Ur Culture Indicated? Chlamy pneumoniae PCR (Not Detect) Adenovirus (PCR) (Not Detect) B. pertussis DNA (PCR) (Not Detecte) B.parapertussis DNA PCR (Not Detecte) Coronavirus OC43 (PCR) (Not Detect) Coronavirus HKU1 (PCR) (Not Detect) Coronavirus 229E (PCR) (Not Detect) SARS-CoV-2 (PCR) (Not Detecte) Coronavirus NL63 (PCR) (Not Detect) Human Metapneumovir PCR (Not Detect) Influenza Type A (PCR) (Not Detect) Influenza Type B (PCR) (Not Detect) M. pneumoniae (PCR) (Not Detect) Parainfluenza 1 (PCR) (Not Detect) Parainfluenza 2 (PCR) (Not Detect) Parainfluenza 3 (PCR) (Not Detect) Parainfluenza 4 (PCR) (Not Detect) RSV (PCR) (Not Detect) Entero/Rhino (PCR) (Not Detect) 02/23/22 02/23/22 02/23/22 Range/Units 16:35 16:35 16:45 WBC (4.5-11.0) X10^3/uL RBC (4.0-5.2) X10^6/uL Hgb (12.0-16.0) g/dL Hct (36-46) % MCV (80-100) fL MCH (26-34) PG MCHC (30-36) % RDW (11.6-14.8) % Plt Count (150-400) X10^3/uL Neut % (Auto) (50-75) % Lymph % (Auto) (25-40) % [place] % (Auto) (3-14) % Eos % (Auto) (2-4) % Baso % (Auto) (0-2) % Neut # (Auto) (5302-1025) /uL Lymph # (Auto) (8047-5778) /uL [place] # (Auto) (0-900) /uL Eos # (Auto) (0-450) /uL Baso # (Auto) (0-100) /uL PT 10.9 (10.1-12.7) SECONDS INR 1.0 (0.9-1.3) Sodium (137-145) mmol/L Potassium (3.4-5.1) mmol/L Chloride (98-107) mmol/L Carbon Dioxide (22-32) mmol/L BUN (7-17) mg/dL Creatinine (0.52-1.04) mg/dL Estimated GFR (>60) mL/min BUN/Creatinine Ratio (6-22) Glucose (80-110) mg/dL Calcium (8.4-10.2) mg/dL Magnesium (1.6-2.3) mg/dL Total Bilirubin (0.2-1.3) mg/dL AST (14-36) IU/L ALT (<35) IU/L Alkaline Phosphatase (38-126) U/L NT-Pro-B Natriuret Pep (<450) pg/mL Total Protein (6.3-8.2) g/dL Albumin (3.5-5.0) g/dL Globulin (1.7-4.1) g/dL Albumin/Globulin Ratio (1.0-2.8) Procalcitonin 0.16 (<0.5) ng/mL TSH (0.47-4.68) uIU/mL Urine Color Urine Appearance Urine pH (4.5-8.0) Ur Specific [place] (1.000-1.035) Urine Protein (Negative) Urine Glucose (UA) (Negative) g/dL Urine Ketones (NEGATIVE) Urine Occult Blood (Negative) Urine Nitrate (Negative) Urine Bilirubin (NEGATIVE) Urine Urobilinogen (0.2) E.U./dL Ur Leukocyte Esterase (NEGATIVE) Urine RBC (0-5/HPF) Urine WBC (0-5/HPF) Ur Squamous Epith Cells (0-5/HPF) Urine Bacteria (None) Ur Culture Indicated? Chlamy pneumoniae PCR Not detected (Not Detect) Adenovirus (PCR) Not detected (Not Detect) B. pertussis DNA (PCR) Not detected (Not Detecte) B.parapertussis DNA PCR Not detected (Not Detecte) Coronavirus OC43 (PCR) Not detected (Not Detect) Coronavirus HKU1 (PCR) Not detected (Not Detect) Coronavirus 229E (PCR) Not detected (Not Detect) SARS-CoV-2 (PCR) Not detected (Not Detecte) Coronavirus NL63 (PCR) Not detected (Not Detect) Human Metapneumovir PCR Not detected (Not Detect) Influenza Type A (PCR) Not detected (Not Detect) Influenza Type B (PCR) Not detected (Not Detect) M. pneumoniae (PCR) Not detected (Not Detect) Parainfluenza 1 (PCR) Not detected (Not Detect) Parainfluenza 2 (PCR) Not detected (Not Detect) Parainfluenza 3 (PCR) Not detected (Not Detect) Parainfluenza 4 (PCR) Not detected (Not Detect) RSV (PCR) Not detected (Not Detect) Entero/Rhino (PCR) Not detected (Not Detect) 02/23/22 Range/Units 17:00 WBC (4.5-11.0) X10^3/uL RBC (4.0-5.2) X10^6/uL Hgb (12.0-16.0) g/dL Hct (36-46) % MCV (80-100) fL MCH (26-34) PG MCHC (30-36) % RDW (11.6-14.8) % Plt Count (150-400) X10^3/uL Neut % (Auto) (50-75) % Lymph % (Auto) (25-40) % [place] % (Auto) (3-14) % Eos % (Auto) (2-4) % Baso % (Auto) (0-2) % Neut # (Auto) (1110-1929) /uL Lymph # (Auto) (6257-1995) /uL [place] # (Auto) (0-900) /uL Eos # (Auto) (0-450) /uL Baso # (Auto) (0-100) /uL PT (10.1-12.7) SECONDS INR (0.9-1.3) Sodium (137-145) mmol/L Potassium (3.4-5.1) mmol/L Chloride (98-107) mmol/L Carbon Dioxide (22-32) mmol/L BUN (7-17) mg/dL Creatinine (0.52-1.04) mg/dL Estimated GFR (>60) mL/min BUN/Creatinine Ratio (6-22) Glucose (80-110) mg/dL Calcium (8.4-10.2) mg/dL Magnesium (1.6-2.3) mg/dL Total Bilirubin (0.2-1.3) mg/dL AST (14-36) IU/L ALT (<35) IU/L Alkaline Phosphatase (38-126) U/L NT-Pro-B Natriuret Pep (<450) pg/mL Total Protein (6.3-8.2) g/dL Albumin (3.5-5.0) g/dL Globulin (1.7-4.1) g/dL Albumin/Globulin Ratio (1.0-2.8) Procalcitonin (<0.5) ng/mL TSH (0.47-4.68) uIU/mL Urine Color Yellow Urine Appearance Clear Urine pH 5.5 (4.5-8.0) Ur Specific [place] <=1.005 (1.000-1.035) Urine Protein Negative (Negative) Urine Glucose (UA) Negative (Negative) g/dL Urine Ketones Negative (NEGATIVE) Urine Occult Blood Negative (Negative) Urine Nitrate Negative (Negative) Urine Bilirubin Negative (NEGATIVE) Urine Urobilinogen 0.2 (0.2) E.U./dL Ur Leukocyte Esterase Negative (NEGATIVE) Urine RBC 0-1/hpf (0-5/HPF) Urine WBC 0-1/hpf (0-5/HPF) Ur Squamous Epith Cells 10-30 /hpf H (0-5/HPF) Urine Bacteria Moderate (10-30) H (None) Ur Culture Indicated? Cult not indicated Chlamy pneumoniae PCR (Not Detect) Adenovirus (PCR) (Not Detect) B. pertussis DNA (PCR) (Not Detecte) B.parapertussis DNA PCR (Not Detecte) Coronavirus OC43 (PCR) (Not Detect) Coronavirus HKU1 (PCR) (Not Detect) Coronavirus 229E (PCR) (Not Detect) SARS-CoV-2 (PCR) (Not Detecte) Coronavirus NL63 (PCR) (Not Detect) Human Metapneumovir PCR (Not Detect) Influenza Type A (PCR) (Not Detect) Influenza Type B (PCR) (Not Detect) M. pneumoniae (PCR) (Not Detect) Parainfluenza 1 (PCR) (Not Detect) Parainfluenza 2 (PCR) (Not Detect) Parainfluenza 3 (PCR) (Not Detect) Parainfluenza 4 (PCR) (Not Detect) RSV (PCR) (Not Detect) Entero/Rhino (PCR) (Not Detect) Point of Care Testing Stool Occult Blood Positive Glucose POC 202 Urine Dip Bedside Urine Glucose Negative Bedside Urine Bilirubin - Negative Bedside Urine Ketone - Negative Urine Specific [place] 1.015 Bedside Urine Occult Blood - Negative Bedside Urine pH 6.0 Bedside Urine Protein - Negative Bedside Urine Urobilinogen - Negative Bedside Urine Nitrite - Negative Bedside Urine Leukocytes - Negative Esterase Discharge Plan Departure Patient Disposition: Admitted As Inpatient Clinical Impression: Signs and symptoms of anemia, Chronic kidney disease (CKD) stage G3b/A2, moderately decreased glomerular filtration rate (GFR) between 30-44 mL/min/1.73 square meter and albuminuria creatinine ratio between 30-299 mg/g, Acute GI bleeding, Acute alcoholism Admit Date/Time: 02/23/22 17:47 Admit Provider: Enmanuel Springer <Yohannes Jeff, DO - Last Filed: 02/28/22 17:54> Cosign ED Attending Cosignature Attestation: Dr Jeff Co-Sign Statement: I was available for consultation during this patient's emergency department visit. This chart is signed by myself for administrative purposes only. I did not have direct contact with this patient during this visit. They were seen independently by the APC.
[2022-02-23 16:54] LABS: Add Manual Diff / Slide Review NO; Basophils Absolute Auto 0 /uL (0-100); Basophils Percent Auto 0.5 % (0-2); Eosinophils Absolute Auto 200 /uL (0-450); Eosinophils Percent Auto 1.6 % (2-4); Lymphocytes Absolute Auto 1500 /uL (1100-4500); Lymphocytes Percent Auto 14.9 % (25-40); Mean Corpuscular HGB Conc 34.9 % (30-36); Mean Corpuscular Hemoglobin 34.2 PG (26-34); Monocytes Absolute Auto 700 /uL (0-900); Monocytes Percent Auto 6.6 % (3-14); Neutrophils Absolute Auto 7700 /uL (1500-7000); Neutrophils Percent Auto 76.4 % (50-75); Platelet Count 254 X10^3/uL (150-400); Red Blood Cell Count 2.25 X10^6/uL (4.0-5.2); Red Cell Distribution Width 13.5 % (11.6-14.8); White Blood Cell Count 10.1 X10^3/uL (4.5-11.0)
[2022-02-23 16:56] LABS: Prothrombin Time 10.9 SECONDS (10.1-12.7)
[2022-02-23 17:01] LABS: Alanine Aminotransferase 14 IU/L (<35); Albumin 3.9 g/dL (3.5-5.0); Albumin Globulin Ratio 1.4 (1.0-2.8); Alkaline Phosphatase 91 U/L (38-126); Aspartate Aminotransferase 34 IU/L (14-36); BUN Creatinine Ratio 49.3 (6-22); Bilirubin Total 0.4 mg/dL (0.2-1.3); Blood Urea Nitrogen 73 mg/dL (7-17); Carbon Dioxide 26 mmol/L (22-32); Chloride 100 mmol/L (98-107); Estimated Glomerular Filt Rate 36 mL/min (>60); Globulin 2.7 g/dL (1.7-4.1); Glucose 180 mg/dL (80-110); HEMOLYSIS < 15 (0-50); Hematocrit 22.1 % (36-46); Hemoglobin 7.7 g/dL (12.0-16.0); Magnesium 1.9 mg/dL (1.6-2.3); Potassium 4.1 mmol/L (3.4-5.1); Sodium 136 mmol/L (137-145); Total Protein 6.6 g/dL (6.3-8.2)
[2022-02-23 17:10] LABS: NT-proBNP (BNP-Adult 18+) 369 pg/mL (<450)
[2022-02-23 17:18] LABS: Procalcitonin 0.16 ng/mL (<0.5)
[2022-02-23 17:18] LABS: Appearance Urine UA CLEAR; Bilirubin Urine UA NEGATIVE (NEGATIVE); Color Urine UA YELLOW; Glucose Urine UA NEGATIVE (Negative); Ketones Urine UA NEGATIVE (NEGATIVE); Leukocyte Esterase Urine UA NEGATIVE (NEGATIVE); Nitrite Urine UA NEGATIVE (Negative); Occult Blood Urine UA NEGATIVE (Negative); Protein Urine UA NEGATIVE (Negative); Specific Gravity Urine UA <=1.005 (1.000-1.035); Urobilinogen Urine UA 0.2 E.U./dL (0.2)
[2022-02-23 17:20] LABS: pH Urine UA 5.5 (4.5-8.0)
[2022-02-23] MEDS: PANTOPRAZOLE 40 MG VIAL IV ×2 (17:23→18:16)
[2022-02-23 17:29] LABS: Bacteria Urine Moderate (10-30); Culture Indicated Urine Cult Not Indicated; RBC Urine 0-1/HPF (0-5/HPF); Squamous Epithelial Cell Urine 10-30 /HPF (0-5/HPF); WBC Urine 0-1/HPF (0-5/HPF)
[2022-02-23 17:46] LABS: Adenovirus Not Detected (Not Detect); B. parapertussis Not Detected (Not Detecte); Bordetella pertussis Not Detected (Not Detecte); Chlamydophila pneumoniae Not Detected (Not Detect); Coronavirus 229E Not Detected (Not Detect); Coronavirus HKU1 Not Detected (Not Detect); Coronavirus NL 63 Not Detected (Not Detect); Coronavirus OC43 Not Detected (Not Detect); Human Metapneumovirus Not Detected (Not Detect); Human Rhinovirus/Enterovirus Not Detected (Not Detect); Influenza A Not Detected (Not Detect); Influenza B Not Detected (Not Detect); Mycoplasma pneumoniae Not Detected (Not Detect); Parainfluenza Virus 1 Not Detected (Not Detect); Parainfluenza Virus 2 Not Detected (Not Detect); Parainfluenza Virus 3 Not Detected (Not Detect); Parainfluenza Virus 4 Not Detected (Not Detect); Respiratory Syncytial Virus Not Detected (Not Detect); SARS- CoV-2 Not Detected (Not Detecte)
[2022-02-23 18:07] LABS: Thyroid Stimulating Hormone 1.69 uIU/mL (0.47-4.68)
[2022-02-23] MEDS: SODIUM CHLORIDE 0.9% 250 ML 21 ML IV (18:17)
[2022-02-23 18:23] LABS: Hematocrit 21.1 % (36-46); Hemoglobin 7.5 g/dL (12.0-16.0)
[2022-02-23] MEDS: PROPRANOLOL 10 MG TABLET 20 MG PO (20:55)
[2022-02-23] MEDS: GABAPENTIN 600 MG TABLET PO (20:55)
[2022-02-23] MEDS: ATORVASTATIN 20 MG TABLET 80 MG PO (20:55)
[2022-02-23] MEDS: levETIRAcetam 250 MG TABLET 500 MG PO (20:55)
[2022-02-23] MEDS: INSULIN GLARGINE 100 UNIT/ML 3ML PEN 12 UNIT SUBCUT (20:59)
[2022-02-23] MEDS: INSULIN LISPRO 100 UNIT/ML 3ML VIAL SUBCUT (20:59)
--- NOTE | 2022-02-23 21:56 | P.HP_ITS ---
History of Present Illness History of Present Illness Date Patient Seen: 02/23/22 Time Patient Seen: 21:15 Chief complaint: leary-sleeping all the time-hand/finger numbness Narrative: Amanda Farah is an 81 y.o. female who came in as she believe she was chamberlain ving a stroke. She she states she has had 2 strokes in the past and it appears that she has been worked up for at least one suspected CVA in 2019. She stated that she had weakness in her left leg which was the same side that was affected previously and felt like she was going to fall. She has been sleeping quite a bit more requiring 3 naps in the past day and then going to bed earlier. She does endorse having dark tarry stool. Fell a few months ago. She has been having chest pain on her right side which is reproducible with palpation. She has bilateral neuropathy of the lower feet where she she states she has absolutely no sensation. She denies shortness of breath, left-sided chest pain, nausea or vomiting, abdominal pain, dysuria, diarrhea or constipation. She continues to have a 3 glass of wine daily consumption. She states she has never had withdrawal symptoms when she has had to abstain from alcohol use. Chest x-ray ordered in the ED did not indicate any acute cardiopulmonary abnormality. Hemoglobin and hematocrit was 7.5 and 21.1, her normal baseline hemoglobin is in the low to mid 8 and her hematocrit normally runs in the mid to low 30s though she has been severely anemic in the past. Sodium was 136, she has a creatinine bump of 1.48 and a BUN at 73 with an EGFR of 36, glucose was 180, proBNP was 369, procalcitonin was 0.16, TSH 1.69, UA was essentially negat gisell for UTI though appeared to be contaminated sample, and COVID-19 PCR was negative. Patient History Medical History Acute post-hemorrhagic anemia Alcohol abuse Anxiety Cellulitis of hand, right Neuropathy Panic attack Vitamin D deficiency Surgical History History of History of ectopic Family & Social History Family History Father No problems noted. Mother Dementia Social History: household members spouse Prior Living Arrangements House lives independently Yes Safety & Behavioral: Feels Safe in Current Yes Environment Been Physically Hurt or No Threatened By a Person Tobacco & Substance use: Tobacco type cigarettes Smoking Status Former smoker alcohol intake current alcohol intake frequency a few times a week Substance Use Type does not use Meds Home Medications and Allergies Home Medications Medication Instructions Recorded Confirmed Type propranolol 20 mg tablet 20 mg PO BID 11/30/19 02/23/22 History aspirin 81 mg tablet,delayed 81 mg PO BEDTIME 06/15/20 02/23/22 History release (Adult Low Dose Aspirin) atorvastatin 80 mg tablet 80 mg PO BEDTIME 06/15/20 02/23/22 History chlorthalidone 25 mg tablet 12.5 mg PO DAILY tab 06/15/20 02/23/22 History lisinopril 20 mg tablet 20 mg PO BID #180 tab 02/20/21 02/23/22 Rx sertraline 50 mg tablet 50 mg PO DAILY #90 tab 09/05/21 02/23/22 Rx one touch verio test strips #300 ea 11/11/21 02/23/22 Rx insulin detemir U-100 100 unit/mL See Rx Instructions SUBCUT 12/30/21 02/23/22 Rx (3 mL) subcutaneous pen .COMPLEX #15 ml gabapentin 300 mg PO BEDTIME 02/23/22 02/23/22 History Allergies Allergy/AdvReac Type Severity Reaction Status Date / Time oxycodone [From Percocet] AdvReac Nausea Verified 02/23/22 16:04 Review of Systems Review of Systems ROS: Yes All systems reviewed with the patient and are negative except as otherwise documented Exam Vital Signs (past 8 hours): - 02/23/22 16:01 02/23/22 19:00 02/23/22 19:41 Temperature 98.2 F 97.3 F L 97.2 F L Pulse Rate 71 72 70 Respiratory Rate 22 16 18 Blood Pressure 123/89 143/46 H 146/59 H Pulse Oximetry 96 97 02/23/22 20:01 02/23/22 21:00 Temperature 97.2 F L 98.2 F Pulse Rate 66 65 Respiratory Rate 16 17 Blood Pressure 150/52 H 151/57 H Pulse Oximetry 99 Oxygen Delivery Method Room Air Oxygen Flow Rate 0 Narrative Exam Narrative: Gen: Alert, oriented, well-developed 81 y.o. female, mildly slurred speech, question residual or intoxicated HEENT: normocephalic, atraumatic, conjunctiva clear, sclera non-icteric, oral mu cosa pink and moist Neck: supple, full ROM, no JVD, trachea is midline Resp: Lungs CTA, non-labored breathing CV: RRR, no murmur or rubs Abd: soft, non-tender, normoactive BTs Skin: pale and mildly jaundiced, no lesions or rashes, dry and intact Neuro: Alert and oriented X 4 w/no focal deficits. Speech clear and coherent. Extremities: moves all 4 extremities, is ambulatory, negative Jevon?s sign Psyche: normal mood and affect. Objective Labs Result Diagrams: 02/23/22 18:10 02/23/22 16:35 Labs: Laboratory Results - last 24 hr 02/23/22 02/23/22 02/23/22 16:35 16:35 16:35 WBC 10.1 RBC 2.25 L Hgb 7.7 L Hct 22.1 L MCV 98.0 MCH 34.2 H MCHC 34.9 RDW 13.5 Plt Count 254 Neut % (Auto) 76.4 H Lymph % (Auto) 14.9 L [place] % (Auto) 6.6 Eos % (Auto) 1.6 L Baso % (Auto) 0.5 Neut # (Auto) 7700 H Lymph # (Auto) 1500 [place] # (Auto) 700 Eos # (Auto) 200 Baso # (Auto) 0 PT INR Sodium 136 L Potassium 4.1 Chloride 100 Carbon Dioxide 26 BUN 73 H Creatinine 1.48 H Estimated GFR 36 L BUN/Creatinine Ratio 49.3 H Glucose 180 H Calcium 9.0 Magnesium 1.9 Total Bilirubin 0.4 AST 34 ALT 14 Alkaline Phosphatase 91 NT-Pro-B Natriuret Pep 369 Total Protein 6.6 Albumin 3.9 Globulin 2.7 Albumin/Globulin Ratio 1.4 Procalcitonin TSH 1.69 Urine Color Urine Appearance Urine pH Ur Specific [place] Urine Protein Urine Glucose (UA) Urine Ketones Urine Occult Blood Urine Nitrate Urine Bilirubin Urine Urobilinogen Ur Leukocyte Esterase Urine RBC Urine WBC Ur Squamous Epith Cells Urine Bacteria Ur Culture Indicated? Chlamy pneumoniae PCR Adenovirus (PCR) B. pertussis DNA (PCR) B.parapertussis DNA PCR Coronavirus OC43 (PCR) Coronavirus HKU1 (PCR) Coronavirus 229E (PCR) SARS-CoV-2 (PCR) Coronavirus NL63 (PCR) Human Metapneumovir PCR Influenza Type A (PCR) Influenza Type B (PCR) M. pneumoniae (PCR) Parainfluenza 1 (PCR) Parainfluenza 2 (PCR) Parainfluenza 3 (PCR) Parainfluenza 4 (PCR) RSV (PCR) Entero/Rhino (PCR) Blood Type Antibody Screen Crossmatch 02/23/22 02/23/22 02/23/22 16:35 16:35 16:45 WBC RBC Hgb Hct MCV MCH MCHC RDW Plt Count Neut % (Auto) Lymph % (Auto) [place] % (Auto) Eos % (Auto) Baso % (Auto) Neut # (Auto) Lymph # (Auto) [place] # (Auto) Eos # (Auto) Baso # (Auto) PT 10.9 INR 1.0 Sodium Potassium Chloride Carbon Dioxide BUN Creatinine Estimated GFR BUN/Creatinine Ratio Glucose Calcium Magnesium Total Bilirubin AST ALT Alkaline Phosphatase NT-Pro-B Natriuret Pep Total Protein Albumin Globulin Albumin/Globulin Ratio Procalcitonin 0.16 TSH Urine Color Urine Appearance Urine pH Ur Specific [place] Urine Protein Urine Glucose (UA) Urine Ketones Urine Occult Blood Urine Nitrate Urine Bilirubin Urine Urobilinogen Ur Leukocyte Esterase Urine RBC Urine WBC Ur Squamous Epith Cells Urine Bacteria Ur Culture Indicated? Chlamy pneumoniae PCR Not detected Adenovirus (PCR) Not detected B. pertussis DNA (PCR) Not detected B.parapertussis DNA PCR Not detected Coronavirus OC43 (PCR) Not detected Coronavirus HKU1 (PCR) Not detected Coronavirus 229E (PCR) Not detected SARS-CoV-2 (PCR) Not detected Coronavirus NL63 (PCR) Not detected Human Metapneumovir PCR Not detected Influenza Type A (PCR) Not detected Influenza Type B (PCR) Not detected M. pneumoniae (PCR) Not detected Parainfluenza 1 (PCR) Not detected Parainfluenza 2 (PCR) Not detected Parainfluenza 3 (PCR) Not detected Parainfluenza 4 (PCR) Not detected RSV (PCR) Not detected Entero/Rhino (PCR) Not detected Blood Type Antibody Screen Crossmatch 02/23/22 02/23/22 02/23/22 17:00 18:10 18:10 WBC RBC Hgb 7.5 L Hct 21.1 L MCV MCH MCHC RDW Plt Count Neut % (Auto) Lymph % (Auto) [place] % (Auto) Eos % (Auto) Baso % (Auto) Neut # (Auto) Lymph # (Auto) [place] # (Auto) Eos # (Auto) Baso # (Auto) PT INR Sodium Potassium Chloride Carbon Dioxide BUN Creatinine Estimated GFR BUN/Creatinine Ratio Glucose Calcium Magnesium Total Bilirubin AST ALT Alkaline Phosphatase NT-Pro-B Natriuret Pep Total Protein Albumin Globulin Albumin/Globulin Ratio Procalcitonin TSH Urine Color Yellow Urine Appearance Clear Urine pH 5.5 Ur Specific [place] <=1.005 Urine Protein Negative Urine Glucose (UA) Negative Urine Ketones Negative Urine Occult Blood Negative Urine Nitrate Negative Urine Bilirubin Negative Urine Urobilinogen 0.2 Ur Leukocyte Esterase Negative Urine RBC 0-1/hpf Urine WBC 0-1/hpf Ur Squamous Epith Cells 10-30 /hpf H Urine Bacteria Moderate (10-30) H Ur Culture Indicated? Cult not indicated Chlamy pneumoniae PCR Adenovirus (PCR) B. pertussis DNA (PCR) B.parapertussis DNA PCR Coronavirus OC43 (PCR) Coronavirus HKU1 (PCR) Coronavirus 229E (PCR) SARS-CoV-2 (PCR) Coronavirus NL63 (PCR) Human Metapneumovir PCR Influenza Type A (PCR) Influenza Type B (PCR) M. pneumoniae (PCR) Parainfluenza 1 (PCR) Parainfluenza 2 (PCR) Parainfluenza 3 (PCR) Parainfluenza 4 (PCR) RSV (PCR) Entero/Rhino (PCR) Blood Type B Positive Antibody Screen Negative Crossmatch See Detail Assessment & Plan Assessment & Plan narrative: Amanda Farah is admitted to the inpatient service for further evaluation of symptomatic anemia. 1. Symptomatic anemia likely secondary to an upper GI bleed, acute, present on admission * She is NPO * She was initiated on 1 unit of PRBC in the emergency department and will continue. Recheck hemoglobin and hematocrit 2 hours after completion of the transfusion. * General surgery is following * She received what appears to be 2 doses of IV Protonix in the emergency department and will be continued b.i.d. starting 02/24/22 2. Acute on chronic kidney (likely stage 2-3) injury, likely due to acute anemia * Creatinine is 1.48 with an EGFR of 36 * Holding lisinopril 3. Diabetes type 2, chronic * Due to NPO status, her normal insulin requirements have been ordered at 50% 4. Diabetic polyneuropathy, chronic * Continue home dose of gabapentin 600 mg p.o. at bedtime 5. Dyslipidemia, chronic * Continue home dose of atorvastatin 80 mg p.o. at bedtime 6. Seizure disorder, chronic * Continue oral Keppra 500 mg p.o. b.i.d. 7. Depression/anxiety, chronic * Continue sertraline 50 mg p.o. daily 8. Essential hypertension, appears to be stable * Continue home dose of propanolol 20 mg p.o. b.i.d. * Holding lisinopril until her renal functions improve VTE Prophylaxis: Wells risk score 0[X] Bilateral SCDs Patient is admitted to the inpatient service due to the severity of disease, risks of further disease progression and this stay is expected to exceed 2 midnights. FEN: IV fluids: currently receiving a blood transfusion, diet: NPO, labs: CBC, C/BMP, liver enzymes, Mag, PT/INR Consultants Dr. Blanton, General Surgery, care and involvement in the patient?s care is appreciated. Dispo: likely home Code status: DNR/DNI as discussed with the patient who identifies her , Suraj as her surrogate and POA. [X] I have utilized all available immediate resources to obtain, update, or rev iew of the patient's current medications COVID-19 COVID-19 status: Negative Result date/Date tested (Pos, Neg/Pending): 02/23/22 Scores Wells' Criteria for PE Clinical signs and symptoms of DVT: No PE is #1 Dx or equally likely: No Heart rate > 100: No Immobilization at least 3 days or surg in previous 4 weeks: No History of PE or DVT: No Hemoptysis: No Malignancy w/Treatment within 6 months or palliative: No Wells' PE Score total: 0 Quality VTE Deep Vein Thrombosis/Pulmonary Embolism Present on Admission: No MIPS - Admit I confirm the patient?s Advance Care Plan is present, Code status is documented, Surrogate decision maker is in patient?s record [If Yes, STOP here]: Yes MIPS - DC The patient has current or prior documentation of left ventricular ejection fraction (LVEF) less than 40%, or moderate or severely depressed left ventricular systolic function.: No
--- NOTE | 2022-02-23 21:56 | PC.NURSE ---
Patient is alert and oriented. Reports she came to hospital due to weakness in left LE but reports she has chronic weakness related to hx of CVA. Breath sounds CTA with RA sat of 99%. HRR with telemetry reading of SR. BP elevated at 151/57 and has history of hypertension. Denies nausea. BT present and abdomen is soft and non tender. Denies any vomiting/bleeding but does admit to having had black stools prior to admission. Instructed in diagnosis and that she will be NPO pending surgical consult for possible upper endoscopy; given lemon glycerin swabs for mouth moisture. 1st unit of blood hung shortly after shift change and is currently infusing without any signs of reaction. Denies pain. Denies dysuria, frequency or urgency with urination and is continent of B&B. Reports using walker at home for ambulation. Bilateral calf SCD's applied. Seizure pads on bed related to potential for alcohol withdrawal and history of seizure; current CIWA is 0. Reports having had fall in past 3 months so fall risk score is high and bed alarm is activated.
--- NOTE | 2022-02-23 23:28 | PC.NURSE ---
after 15 min VS was at 2256 BP134/52, HR62, RR20, T97.6C for 2nd pack of PRBC
[2022-02-24] VITALS (10 sets, daily range): BP systolic 119–143; BP diastolic 46–78; PULSE 16–64; RESP 16–18; TEMP 35.7–36.9; O2SAT 94–99
--- NOTE | 2022-02-24 00:51 | PC.NURSE ---
Prior starting blood transfusion, explained the side effect/possible risk of getting infectious diseases of blood transfusion. Pt verbalized understanding, witnessed consent form signed, double checked order and blood products with primary RN. Pt has not developed any sign of symptoms of blood transfusion, denied discomfort/distress. Will continue to monitor.
[2022-02-24] MEDS: SODIUM CHLORIDE 0.9% 1,000 ML 50 ML IV ×2 (01:30→20:46)
[2022-02-24 02:35] LABS: Add Manual Diff / Slide Review NO; Basophils Absolute Auto 0 /uL (0-100); Basophils Percent Auto 0.6 % (0-2); Eosinophils Absolute Auto 200 /uL (0-450); Eosinophils Percent Auto 2.2 % (2-4); Hemoglobin 9.6 g/dL (12.0-16.0); Lymphocytes Absolute Auto 1800 /uL (1100-4500); Lymphocytes Percent Auto 22.5 % (25-40); Mean Corpuscular HGB Conc 34.4 % (30-36); Mean Corpuscular Hemoglobin 32.6 PG (26-34); Mean Corpuscular Volume 94.8 fL (80-100); Monocytes Absolute Auto 700 /uL (0-900); Monocytes Percent Auto 8.3 % (3-14); Neutrophils Absolute Auto 5200 /uL (1500-7000); Neutrophils Percent Auto 66.4 % (50-75); Platelet Count 182 X10^3/uL (150-400); Red Blood Cell Count 2.95 X10^6/uL (4.0-5.2); Red Cell Distribution Width 14.9 % (11.6-14.8); White Blood Cell Count 7.8 X10^3/uL (4.5-11.0)
[2022-02-24 02:38] LABS: Hematocrit 27.9 % (36-46)
[2022-02-24] MEDS: MELATONIN 3 MG TABLET PO ×2 (02:44→20:29)
[2022-02-24 03:01] LABS: BUN Creatinine Ratio 44.2 (6-22); Blood Urea Nitrogen 61 mg/dL (7-17); Calcium 8.4 mg/dL (8.4-10.2); Carbon Dioxide 28 mmol/L (22-32); Chloride 102 mmol/L (98-107); Estimated Glomerular Filt Rate 39 mL/min (>60); Glucose 132 mg/dL (80-110); HEMOLYSIS < 15 (0-50); Potassium 3.6 mmol/L (3.4-5.1); Sodium 137 mmol/L (137-145)
[2022-02-24] MEDS: INSULIN LISPRO 100 UNIT/ML 3ML VIAL SUBCUT (06:26)
[2022-02-24] MEDS: THIAMINE 100 MG TABLET PO (08:16)
[2022-02-24] MEDS: MULTIVITAMIN 1 TABLET 1 TAB PO (08:16)
[2022-02-24] MEDS: levETIRAcetam 250 MG TABLET 500 MG PO ×2 (08:16→20:30)
[2022-02-24] MEDS: PROPRANOLOL 10 MG TABLET 20 MG PO ×2 (08:16→20:30)
[2022-02-24] MEDS: FOLIC ACID 1 MG TABLET PO (08:16)
[2022-02-24] MEDS: PANTOPRAZOLE 40 MG VIAL IV ×2 (08:16→20:30)
[2022-02-24] MEDS: SERTRALINE 50 MG TABLET PO (08:16)
[2022-02-24] MEDS: INSULIN GLARGINE 100 UNIT/ML 3ML PEN 18 UNIT SUBCUT (09:03)
--- NOTE | 2022-02-24 10:26 | P.PN_ITS ---
Subjective Subjective Date Patient Seen: 02/24/22 Interval history: 81-year-old female with insulin dependent type 2 diabetes, history of CVA, hypertension, alcohol abuse admitted due to GI bleed. Presented with melena stools and fatigue. She got 2 units PRBC with improvement in anemia. She has no complaints this morning. Awaiting EGD Exam Vital Signs (past 8 hours): - 02/24/22 04:00 02/24/22 08:00 02/24/22 08:15 Temperature 98.0 F 96.9 F L Pulse Rate 60 62 Respiratory Rate 17 18 Blood Pressure 134/47 L 143/62 H Pulse Oximetry 99 98 98 Oxygen Delivery Method Room Air Oxygen Flow Rate 0 Narrative Exam Narrative: General: Alert and in no distress Lungs: Clear Heart: Regular Abdomen: Soft Extremities: No edema Neurological: Normal affect and speech Objective Labs Result Diagrams: 02/24/22 02:20 02/24/22 02:20 Labs: Laboratory Results - last 24 hr 02/23/22 02/23/22 02/23/22 16:35 16:35 16:35 WBC 10.1 RBC 2.25 L Hgb 7.7 L Hct 22.1 L MCV 98.0 MCH 34.2 H MCHC 34.9 RDW 13.5 Plt Count 254 Neut % (Auto) 76.4 H Lymph % (Auto) 14.9 L [place] % (Auto) 6.6 Eos % (Auto) 1.6 L Baso % (Auto) 0.5 Neut # (Auto) 7700 H Lymph # (Auto) 1500 [place] # (Auto) 700 Eos # (Auto) 200 Baso # (Auto) 0 PT INR Sodium 136 L Potassium 4.1 Chloride 100 Carbon Dioxide 26 BUN 73 H Creatinine 1.48 H Estimated GFR 36 L BUN/Creatinine Ratio 49.3 H Glucose 180 H Calcium 9.0 Magnesium 1.9 Total Bilirubin 0.4 AST 34 ALT 14 Alkaline Phosphatase 91 NT-Pro-B Natriuret Pep 369 Total Protein 6.6 Albumin 3.9 Globulin 2.7 Albumin/Globulin Ratio 1.4 Procalcitonin TSH 1.69 Urine Color Urine Appearance Urine pH Ur Specific [place] Urine Protein Urine Glucose (UA) Urine Ketones Urine Occult Blood Urine Nitrate Urine Bilirubin Urine Urobilinogen Ur Leukocyte Esterase Urine RBC Urine WBC Ur Squamous Epith Cells Urine Bacteria Ur Culture Indicated? Chlamy pneumoniae PCR Adenovirus (PCR) B. pertussis DNA (PCR) B.parapertussis DNA PCR Coronavirus OC43 (PCR) Coronavirus HKU1 (PCR) Coronavirus 229E (PCR) SARS-CoV-2 (PCR) Coronavirus NL63 (PCR) Human Metapneumovir PCR Influenza Type A (PCR) Influenza Type B (PCR) M. pneumoniae (PCR) Parainfluenza 1 (PCR) Parainfluenza 2 (PCR) Parainfluenza 3 (PCR) Parainfluenza 4 (PCR) RSV (PCR) Entero/Rhino (PCR) Blood Type Antibody Screen Crossmatch 02/23/22 02/23/22 02/23/22 16:35 16:35 16:45 WBC RBC Hgb Hct MCV MCH MCHC RDW Plt Count Neut % (Auto) Lymph % (Auto) [place] % (Auto) Eos % (Auto) Baso % (Auto) Neut # (Auto) Lymph # (Auto) [place] # (Auto) Eos # (Auto) Baso # (Auto) PT 10.9 INR 1.0 Sodium Potassium Chloride Carbon Dioxide BUN Creatinine Estimated GFR BUN/Creatinine Ratio Glucose Calcium Magnesium Total Bilirubin AST ALT Alkaline Phosphatase NT-Pro-B Natriuret Pep Total Protein Albumin Globulin Albumin/Globulin Ratio Procalcitonin 0.16 TSH Urine Color Urine Appearance Urine pH Ur Specific [place] Urine Protein Urine Glucose (UA) Urine Ketones Urine Occult Blood Urine Nitrate Urine Bilirubin Urine Urobilinogen Ur Leukocyte Esterase Urine RBC Urine WBC Ur Squamous Epith Cells Urine Bacteria Ur Culture Indicated? Chlamy pneumoniae PCR Not detected Adenovirus (PCR) Not detected B. pertussis DNA (PCR) Not detected B.parapertussis DNA PCR Not detected Coronavirus OC43 (PCR) Not detected Coronavirus HKU1 (PCR) Not detected Coronavirus 229E (PCR) Not detected SARS-CoV-2 (PCR) Not detected Coronavirus NL63 (PCR) Not detected Human Metapneumovir PCR Not detected Influenza Type A (PCR) Not detected Influenza Type B (PCR) Not detected M. pneumoniae (PCR) Not detected Parainfluenza 1 (PCR) Not detected Parainfluenza 2 (PCR) Not detected Parainfluenza 3 (PCR) Not detected Parainfluenza 4 (PCR) Not detected RSV (PCR) Not detected Entero/Rhino (PCR) Not detected Blood Type Antibody Screen Crossmatch 02/23/22 02/23/22 02/23/22 17:00 18:10 18:10 WBC RBC Hgb 7.5 L Hct 21.1 L MCV MCH MCHC RDW Plt Count Neut % (Auto) Lymph % (Auto) [place] % (Auto) Eos % (Auto) Baso % (Auto) Neut # (Auto) Lymph # (Auto) [place] # (Auto) Eos # (Auto) Baso # (Auto) PT INR Sodium Potassium Chloride Carbon Dioxide BUN Creatinine Estimated GFR BUN/Creatinine Ratio Glucose Calcium Magnesium Total Bilirubin AST ALT Alkaline Phosphatase NT-Pro-B Natriuret Pep Total Protein Albumin Globulin Albumin/Globulin Ratio Procalcitonin TSH Urine Color Yellow Urine Appearance Clear Urine pH 5.5 Ur Specific [place] <=1.005 Urine Protein Negative Urine Glucose (UA) Negative Urine Ketones Negative Urine Occult Blood Negative Urine Nitrate Negative Urine Bilirubin Negative Urine Urobilinogen 0.2 Ur Leukocyte Esterase Negative Urine RBC 0-1/hpf Urine WBC 0-1/hpf Ur Squamous Epith Cells 10-30 /hpf H Urine Bacteria Moderate (10-30) H Ur Culture Indicated? Cult not indicated Chlamy pneumoniae PCR Adenovirus (PCR) B. pertussis DNA (PCR) B.parapertussis DNA PCR Coronavirus OC43 (PCR) Coronavirus HKU1 (PCR) Coronavirus 229E (PCR) SARS-CoV-2 (PCR) Coronavirus NL63 (PCR) Human Metapneumovir PCR Influenza Type A (PCR) Influenza Type B (PCR) M. pneumoniae (PCR) Parainfluenza 1 (PCR) Parainfluenza 2 (PCR) Parainfluenza 3 (PCR) Parainfluenza 4 (PCR) RSV (PCR) Entero/Rhino (PCR) Blood Type B Positive Antibody Screen Negative Crossmatch See Detail 02/24/22 02/24/22 02:20 02:20 WBC 7.8 RBC 2.95 L Hgb 9.6 L Hct 27.9 L MCV 94.8 D MCH 32.6 MCHC 34.4 RDW 14.9 H Plt Count 182 Neut % (Auto) 66.4 Lymph % (Auto) 22.5 L [place] % (Auto) 8.3 Eos % (Auto) 2.2 Baso % (Auto) 0.6 Neut # (Auto) 5200 Lymph # (Auto) 1800 [place] # (Auto) 700 Eos # (Auto) 200 Baso # (Auto) 0 PT INR Sodium 137 Potassium 3.6 Chloride 102 Carbon Dioxide 28 BUN 61 H Creatinine 1.38 H Estimated GFR 39 L BUN/Creatinine Ratio 44.2 H Glucose 132 H Calcium 8.4 Magnesium Total Bilirubin AST ALT Alkaline Phosphatase NT-Pro-B Natriuret Pep Total Protein Albumin Globulin Albumin/Globulin Ratio Procalcitonin TSH Urine Color Urine Appearance Urine pH Ur Specific [place] Urine Protein Urine Glucose (UA) Urine Ketones Urine Occult Blood Urine Nitrate Urine Bilirubin Urine Urobilinogen Ur Leukocyte Esterase Urine RBC Urine WBC Ur Squamous Epith Cells Urine Bacteria Ur Culture Indicated? Chlamy pneumoniae PCR Adenovirus (PCR) B. pertussis DNA (PCR) B.parapertussis DNA PCR Coronavirus OC43 (PCR) Coronavirus HKU1 (PCR) Coronavirus 229E (PCR) SARS-CoV-2 (PCR) Coronavirus NL63 (PCR) Human Metapneumovir PCR Influenza Type A (PCR) Influenza Type B (PCR) M. pneumoniae (PCR) Parainfluenza 1 (PCR) Parainfluenza 2 (PCR) Parainfluenza 3 (PCR) Parainfluenza 4 (PCR) RSV (PCR) Entero/Rhino (PCR) Blood Type Antibody Screen Crossmatch [facility] Medical History Acute post-hemorrhagic anemia Alcohol abuse Anxiety Cellulitis of hand, right Neuropathy Panic attack Vitamin D deficiency Surgical History History of History of ectopic Family History Father No problems noted. Mother Dementia Social History household members: spouse lives independently: Yes Smoking Status: Former smoker alcohol intake: current Assessment & Plan Assessment & Plan narrative: 1. Acute blood loss anemia from upper GI bleed -patient is on aspirin and has significant daily ETOH consumption -status post 2 units PRBC -continue IV Protonix b.i.d. -NPO awaiting EGD today 2. Type 2 diabetes with neuropathy, insulin dependent -glucose in adequate range, she is on 50% of usual long-acting insulin dosing while NPO -continue gabapentin 3. Hypertension -continued on propranolol 20 mg b.i.d. and her statin -holding lisinopril 4.Chronic kidney disease, stable -slight bump < 20% in BUN and creatinine from bleed -continue hydration DVT prophylaxis: SCDs Time Spent With Patient Critical Care time: I spent a total of [] minutes of critical care time on this patient's care today; this time is exclusive of procedural time. Quality VTE Deep Vein Thrombosis/Pulmonary Embolism Present on Admission: No
--- NOTE | 2022-02-24 16:54 | CM.DANOTE ---
DCP/Assessment: Reviewed chart. Patient is a 81yr old female admitted to [facility] with TIA/stroke like symptoms. PCP is Dr. Bush. Primary payor is 1)Medicare 2)Elevate HR. Met with patient this AM explained role. Patient reports that she plans to d/c home when medically stable. Patient reports that she uses walker at baseline and that she does not anticipate any d/c planning needs at this time. Patient undergoing EGD today? Provider reports daily ETOH use, CIWA protocol initiated. CM team following closely. P: Anticipate home when stable. LIBIA Discharge Planning/Care Management CM Discharge Assessment Start: 02/24/22 16:51 Freq: Status: Active Protocol: Document 02/24/22 16:51 LIBIA (Rec: 02/24/22 16:54 [email or web address] Javier [id number]) Discharge Planning Assessment Assigned Cradle Slide Maker THOMAS Seay Advance Directives? No Advance Directives on File No History Provided By Patient,Medical Record Prior Living Arrangements House Household Members spouse Type of transporation used prior to Relies on Others admit Independent with ADL's Yes: Uses walker at baseline Is patient alert and oriented? Yes Caregiver for Another No DME Already Rented / Owned FWW / Walker Barriers to Discharge No Comment Anticipate home when medically stable. EGD scheduled today for upper GI bleed? Discharge Plan Home Transportation Arrangement Family Referrals Initiated Other Additional Comment Per provider patient daily alcohol drinker. CIWA protocal in place. Review Status In Process Next Review Type Continued Stay Review
[2022-02-24] MEDS: ATORVASTATIN 20 MG TABLET 80 MG PO (20:30)
[2022-02-24] MEDS: GABAPENTIN 600 MG TABLET PO (20:30)
[2022-02-24] MEDS: INSULIN GLARGINE 100 UNIT/ML 3ML PEN 12 UNIT SUBCUT (20:32)
[2022-02-25] VITALS (11 sets, daily range): BP systolic 128–167; BP diastolic 48–72; PULSE 54–72; RESP 16–21; TEMP 36.1–37.1; O2SAT 95–100; BMI 25.3
--- NOTE | 2022-02-25 | PATH_ITS ---
[facility] Accession Number: [id number] . 01 Material submitted: . PART A: duodenum - DUODENUM BIOPSIES PART B: body - MARGIN OF ULCER PART C: stomach - ANTRUM BIOPSY PART D: esophagus, E-G Junction - GE JUNCTION BIOPSIES . 01 Clinical history: . LEARY-SLEEPING ALL THE TIME- HAND/FINGER NUMBNESS . 01 Diagnosis: A. Duodeum, Biopsies: Duodenal mucosa with no diagnostic abnormality. Negative for active inflammation, features of sprue, dysplasia, or malignancy. . B. Stomach, Margin of Ulcer, Biopsy: Acute erosive gastritis with reactive gastropathy. Negative for Helicobacter by immunohistochemistry. Negative for intestinal metaplasia. Negative for dysplasia and malignancy. . C. Stomach, Antrum, Biopsy: Antral mucosa with mild chronic gastritis. Negative for Helicobacter by immunohistochemistry. Negative for intestinal metaplasia. Negative for dysplasia and malignancy. . D. Gastroeesophageal Junction, Biopsies: Squamous and columnar mucosa with no diagnostic abnormality. Negative for intestinal metaplasia. Negative for dysplasia and malignancy. [facility] 02/28/2022 1256 Local . 01 Electronically signed: . Jocelyn Clark MD, Pathologist NPI- [id number] . 01 Gross description: . Part A: DUODENUM BIOPSIES: Received in formalin is 1 fragment(s) of allen, soft tissue measuring 0.5 x 0.2 x 0.2 cm submitted entirely in 1 cassette(s) Part B: MARGIN OF ULCER: Received in formalin are 2 fragment(s) of allen, soft tissue measuring 0.2 x 0.2 x 0.1 cm to 0.1 x 0.1 x 0.1 cm submitted entirely in 1 cassette(s) Part C: ANTRUM BIOPSY: Received in formalin are 4 fragment(s) of allen, soft tissue measuring 0.3 x 0.2 x 0.2 cm to 0.2 x 0.1 x 0.1 cm submitted entirely in 1 cassette(s) Part D: GE JUNCTION BIOPSIES: Received in formalin are 4 fragment(s) of allen, soft tissue measuring 0.3 x 0.3 x 0.1 cm to 0.2 x 0.1 x 0.1 cm submitted entirely in 1 cassette(s) /CPE 02/26/2022 0835 Local . 01 Microscopic: . B-C. Immunohistochemical stains were performed on blocks B and C in order to evaluate for Helicobacter organisms, and are both negative. The control stain showed appropriate reactivity. . * This test was developed and its performance characteristics determined by [facility]. It has not been cleared or approved by the U.S. Food and Drug Administration. The FDA has determined that such clearance or approval is not necessary. This test is used for clinical purposes. It should not be regarded as investigational or for research. . 01 Pathologist provided ICD-10: K25.9 . 01 CPT . 097346, 710013, 848543, M60214, 632783 Specimen Comment: A courtesy copy of this report has been sent to [phone] Performed at: 01 [facility] [address] [place] [address] [address] [facility], [place], [place] [id number] MD Nicho Celeste MD Phone: [phone]
--- NOTE | 2022-02-25 00:08 | PC.NURSE ---
Addendum entered by Antonella Harrington R.N. 02/25/22 07:02: OR called and will be up to take patient to OR for EGD. Telemetry removed and ICU informed. IVF paused and SCD's removed. Rings x4 taped to fingers as unable to remove. Addendum entered by Antonella Harrington R.N. 02/25/22 00:53: MACHINE MAINTENANCE reports HR is dropping down into 40's. Edu LAECH, informed and will review medications. Not certain if patient takes Propranolol for HTN or anxiety/panic attacks. Original Note: Patient is alert and oriented. Breath sounds CTA with RA sat of 98%. HRR with telemetry reading of SB but HR of 60. BT present and is passing flatus with last BM on 02/21. Denied nausea. As of 0000 is NPO for endoscopy in the morning. Voiding on BSC and denies dysuria, frequency or urgency. Able to move herself in bed. Up to BSC with walker and SBA due to generalized weakness. Denied pain. Wearing bilateral calf SCD's. CIWA continues to be 0. Seizure pads in place on bed. Fall risk score is high and bed alarm is activated.
--- NOTE | 2022-02-25 00:54 | PC.NURSE ---
Notified primary RN Antonella Bright, patient is SB 48-51.
[2022-02-25 05:28] LABS: Add Manual Diff / Slide Review NO; Basophils Absolute Auto 0 /uL (0-100); Basophils Percent Auto 0.8 % (0-2); Eosinophils Absolute Auto 200 /uL (0-450); Eosinophils Percent Auto 4.3 % (2-4); Hematocrit 28.8 % (36-46); Lymphocytes Absolute Auto 1100 /uL (1100-4500); Lymphocytes Percent Auto 18.8 % (25-40); Mean Corpuscular HGB Conc 34.6 % (30-36); Mean Corpuscular Volume 95.2 fL (80-100); Monocytes Absolute Auto 400 /uL (0-900); Monocytes Percent Auto 6.9 % (3-14); Neutrophils Absolute Auto 3900 /uL (1500-7000); Neutrophils Percent Auto 69.2 % (50-75); Platelet Count 192 X10^3/uL (150-400); Red Blood Cell Count 3.03 X10^6/uL (4.0-5.2); White Blood Cell Count 5.7 X10^3/uL (4.5-11.0)
[2022-02-25 05:35] LABS: BUN Creatinine Ratio 31.5 (6-22); Blood Urea Nitrogen 35 mg/dL (7-17); Calcium 8.2 mg/dL (8.4-10.2); Carbon Dioxide 29 mmol/L (22-32); Chloride 106 mmol/L (98-107); Estimated Glomerular Filt Rate 50 mL/min (>60); Glucose 146 mg/dL (80-110); HEMOLYSIS < 15 (0-50); Potassium 4.1 mmol/L (3.4-5.1); Sodium 138 mmol/L (137-145)
[2022-02-25] MEDS: INSULIN LISPRO 100 UNIT/ML 3ML VIAL SUBCUT (06:05)
[2022-02-25] MEDS: LACTATED RINGERS 1,000 ML 42 ML IV (07:40)
--- NOTE | 2022-02-25 07:53 | PM.CN ---
History of Present Illness Consult details Date Patient Seen: 02/25/22 Time Patient Seen: 07:53 Chief complaint: leary-sleeping all the time-hand/finger numbness Narrative: Amanda Pappas is an 81-year-old woman who presents with fatigue. She was found to be anemic. She has not noticed any hematochezia or melena. She denies any recent changes in bowel function. She believes she has had an EGD but it has been many many years. She also has had a colonoscopy but it has also been a long time. Meds Home Medications and Allergies Home Medications Medication Instructions Recorded Confirmed Type propranolol 20 mg tablet 20 mg PO BID 11/30/19 02/23/22 History aspirin 81 mg tablet,delayed 81 mg PO BEDTIME 06/15/20 02/23/22 History release (Adult Low Dose Aspirin) atorvastatin 80 mg tablet 80 mg PO BEDTIME 06/15/20 02/23/22 History chlorthalidone 25 mg tablet 12.5 mg PO DAILY tab 06/15/20 02/23/22 History lisinopril 20 mg tablet 20 mg PO BID #180 tab 02/20/21 02/23/22 Rx sertraline 50 mg tablet 50 mg PO DAILY #90 tab 09/05/21 02/23/22 Rx one touch verio test strips #300 ea 11/11/21 02/23/22 Rx insulin detemir U-100 100 unit/mL See Rx Instructions SUBCUT 12/30/21 02/23/22 Rx (3 mL) subcutaneous pen .COMPLEX #15 ml gabapentin 300 mg PO BEDTIME 02/23/22 02/23/22 History Allergies Allergy/AdvReac Type Severity Reaction Status Date / Time oxycodone [From Percocet] AdvReac Nausea Verified 02/25/22 07:41 Exam Vital Signs (past 8 hours): - 02/25/22 00:00 02/25/22 04:00 02/25/22 06:00 Temperature 97.2 F L 97.3 F L 97.2 F L Pulse Rate 60 63 62 Respiratory Rate 18 18 18 Blood Pressure 128/54 L 131/52 L 149/59 H Pulse Oximetry 99 95 100 02/25/22 07:24 Temperature 97.0 F L Pulse Rate 58 L Respiratory Rate 18 Blood Pressure 154/72 H Pulse Oximetry 100 Oxygen Delivery Method Room Air Oxygen Flow Rate 0 Const General: No acute distress Resp Effort & Inspection: normal respiratory effort Objective Labs Result Diagrams: 02/25/22 05:05 02/25/22 05:05 Labs: Laboratory Results - last 24 hr 02/25/22 02/25/22 05:05 05:05 WBC 5.7 RBC 3.03 L Hgb 10.0 L Hct 28.8 L MCV 95.2 MCH 33.0 MCHC 34.6 RDW 15.0 H Plt Count 192 Neut % (Auto) 69.2 Lymph % (Auto) 18.8 L [place] % (Auto) 6.9 Eos % (Auto) 4.3 H Baso % (Auto) 0.8 Neut # (Auto) 3900 Lymph # (Auto) 1100 [place] # (Auto) 400 Eos # (Auto) 200 Baso # (Auto) 0 Sodium 138 Potassium 4.1 Chloride 106 Carbon Dioxide 29 BUN 35 H Creatinine 1.11 H Estimated GFR 50 L BUN/Creatinine Ratio 31.5 H Glucose 146 H Calcium 8.2 L PFSH Medical History Acute post-hemorrhagic anemia Alcohol abuse Anxiety Cellulitis of hand, right Neuropathy Panic attack Vitamin D deficiency Surgical History History of History of ectopic Family History Father No problems noted. Mother Dementia Social History household members: spouse lives independently: Yes Tobacco & Substance Use Smoking Status: Former smoker alcohol intake: current Assessment & Plan Assessment and plan (1) Signs and symptoms of anemia: Status: Acute Plan We reviewed the risks, benefits and rationale of esophageal gastroduodenoscopy. She would like to proceed. If we do not find a cause for her anemia on upper endoscopy we would need to proceed with a colonoscopy in the next 1-2 days. Time Spent With Patient Critical Care time: I spent a total of [] minutes of critical care time on this patient's care today; this time is exclusive of procedural time.
--- NOTE | 2022-02-25 08:21 | PM.OP.EGD ---
Operative Date/Time/Diagnoses Date of procedure: 02/25/22 Time of procedure: 08:21 Pre-op diagnosis: Anemia Post-op diagnosis: same Procedure & Clinicians Study performed: Esophagogastroduodenoscopy Same procedure as scheduled: Yes Procedure Notes Procedure in detail: Surgeon: Rafal Cruz MD The patient was brought to the operating room where general endotracheal anesthesia was induced by Dr. Mallika Bhatt. A timeout was performed. A bite blocked was placed. The patient was positioned in the supine position. The endoscope was inserted through the bite block and passed through the esophagus and stomach and into the stomach. There was a rather large ulcer in the pyloric channel. There was no visible vessel and no active bleeding. The scope was advanced into the duodenum. The duodenal mucosa appeared somewhat denuded and random biopsies were taken from 2nd portion of the duodenum. The scope was withdrawn into the duodenal bulb and the ulcer was biopsied at its margin. The base of the ulcer was not biopsied due to the concern of possible perforation. The scope was withdrawn into the stomach. Random biopsies were taken from the antrum which was mildly erythematous. The rest of the stomach was normal. The scope was retroflexed and there was some prominent tissue at the GE junction and biopsies were taken. The scope was withdrawn into the esophagus and no other abnormalities were noted. The remainder of the esophagus was normal. The scope was withdrawn. The patient was awakened and brought to recovery. Findings: A large ulcer in the pyloric channel, mild erythema of the antrum and some prominent tissue at the GE junction. Post-procedure Plan for aftercare: Stop aspirin Disposition: PACU
--- NOTE | 2022-02-25 08:41 | SUR.PHASEI ---
Report will be given at bedside by Jovani Stark RN and pt is transported by Jovani Stark.Rn Called upstairs and attempted to give report.
--- NOTE | 2022-02-25 09:29 | P.DS_ITS ---
History of Present Illness History of Present Illness Chief complaint: leary-sleeping all the time-hand/finger numbness Narrative: Per admitting provider: Amanda Farah is an 81 y.o. female who came in as she believe she was having a stroke.? She she states she has had 2 strokes in the past and it appear s that she has been worked up for at least one suspected CVA in 2019.? She stated that she had weakness in her left leg which was the same side that was affected previously and felt like she was going to fall.? She has been sleeping quite a bit more requiring 3 naps in the past day and then going to bed earlier.? She does endorse having dark tarry stool.? Fell a few months ago.? She has been having chest pain on her right side which is reproducible with palpation.? She has bilateral neuropathy of the lower feet where she she states she has absolutely no sensation.? She denies shortness of breath, left-sided chest pain, nausea or vomiting, abdominal pain, dysuria, diarrhea or constipation.? She continues to have a 3 glass of wine daily consumption.? She states she has never had withdrawal symptoms when she has had to abstain from alcohol use. Chest x-ray ordered in the ED did not indicate any acute cardiopulmonary abnormality.? Hemoglobin and hematocrit was 7.5 and 21.1, her normal baseline hemoglobin is in the low to mid 8 and her hematocrit normally runs in the mid to low 30s though she has been severely anemic in the past.? Sodium was 136, she has a creatinine bump of 1.48 and a BUN at 73 with an EGFR of 36, glucose was 180, proBNP was 369, procalcitonin was 0.16, TSH 1.69, UA was essentially negative for UTI though appeared to be contaminated sample, and COVID-19 PCR was negative. Discharge Providers Provider Date of admission: 02/23/22 17:47 Discharge Date: 02/25/22 Primary care physician: Sid Bush MD Consults: 02/23/22 17:32 Consult to General Surgery Stat Comment: Consulting Provider: Jose Blanton Reason for consultation: endoscopy, upper GI bleed Has provider been notified: Yes 02/23/22 18:39 Consult to Physician Routine Comment: Consulting Provider: Jose Blanton Reason for consultation: GIB Has provider been notified: Yes Discharge provider: Eddie Salamanca MD Summary Hospital Course Discharge Diagnosis: 1. Acute GI bleed, blood loss anemia from peptic ulcer disease 2. Type 2 diabetes, neuropathy, insulin dependent 3. Hypertension 4. CKD 5. History of CVA 6. Alcohol abuse Hospital Course: Ms. Farah came in with GI bleed. She did get 2U PRBC for hemoglobin in 7s and improved to 10s. She had no further evidence of bleeding. She did get an EGD that showed a gastric ulcer with no bleeding or visible vessel. She was on IV protonix, and discharged on this medication. She is encouraged to stop alcohol as it can be cause of ulcers. She also had aspirin held, but should restart this is in the next week. She should follow up closely with her PCP. Exam Vital Signs (past 8 hours): Oxygen Delivery Method Room Air Oxygen Flow Rate 0 Narrative Exam Narrative: General:? Alert and in no distress Lungs:? Clear Heart:? Regular Abdomen:? Soft Objective Labs Result Diagrams: 02/25/22 05:05 02/25/22 05:05 Labs: Laboratory Results - last 24 hr 02/25/22 02/25/22 05:05 05:05 WBC 5.7 RBC 3.03 L Hgb 10.0 L Hct 28.8 L MCV 95.2 MCH 33.0 MCHC 34.6 RDW 15.0 H Plt Count 192 Neut % (Auto) 69.2 Lymph % (Auto) 18.8 L [place] % (Auto) 6.9 Eos % (Auto) 4.3 H Baso % (Auto) 0.8 Neut # (Auto) 3900 Lymph # (Auto) 1100 [place] # (Auto) 400 Eos # (Auto) 200 Baso # (Auto) 0 Sodium 138 Potassium 4.1 Chloride 106 Carbon Dioxide 29 BUN 35 H Creatinine 1.11 H Estimated GFR 50 L BUN/Creatinine Ratio 31.5 H Glucose 146 H Calcium 8.2 L PFSH Medical History Acute post-hemorrhagic anemia Alcohol abuse Anxiety Cellulitis of hand, right Neuropathy Panic attack Vitamin D deficiency Surgical History History of History of ectopic Family History Father No problems noted. Mother Dementia Social History household members: spouse lives independently: Yes Smoking Status: Former smoker alcohol intake: current Discharge Plan Discharge Plan Patient Disposition: Home Provider Discharge Comment: Ms. Farah was admitted with gastrointesntial bleeding. She had a blood transfusion. She improved. She had an endoscopy which showed a stomach ulcer and was started on protonix. Protonix reduces acid in the stomach and helps ulcers heal. She should hold her aspirin for one week and then restart. She should see her PCP within one week. Alcohol use can make ulcers worse so please stop drinking any alcohol. Discharge orders & Medications Prescriptions: New levetiracetam 250 mg Tablet 500 mg PO BID Qty: 30 0RF gabapentin [Neurontin] 600 mg Tablet 600 mg PO BEDTIME Qty: 30 0RF folic acid 1 mg Tablet 1 mg PO DAILY Qty: 30 0RF multivitamin with folic acid [Tab-A-Evy] 400 mcg Tablet 1 tab PO DAILY Qty: 30 0RF thiamine mononitrate (vit B1) 100 mg Tablet 100 mg PO DAILY Qty: 30 0RF pantoprazole [Protonix] 40 mg tablet,delayed release (DR/EC) 40 mg PO DAILY Qty: 30 0RF Continued lisinopril 20 mg tablet 20 mg PO BID Qty: 180 2RF sertraline 50 mg tablet 50 mg PO DAILY Qty: 90 3RF insulin detemir U-100 100 unit/mL (3 mL) insulin pen See Rx Instructions SUBCUT .COMPLEX Qty: 15 0RF Rx Instructions: 34 units in the morning and 22 units in the evening SUBCUT; // chlorthalidone 25 mg tablet 12.5 mg PO DAILY 0RF atorvastatin 80 mg tablet 80 mg PO BEDTIME 0RF propranolol 20 mg Tablet 20 mg PO BID 0RF gabapentin 300 mg capsule 300 mg PO BEDTIME 0RF Discontinued aspirin [Adult Low Dose Aspirin] 81 mg tablet,delayed release (DR/EC) 81 mg PO BEDTIME 0RF No Action (DME) one touch verio test strips See Rx Instructions .Route .MEDSUPPLY Qty: 300 3RF Rx Instructions: use to check blood sugar twice daily Follow up/Referrals: Sid Bush MD [Primary Care Provider] - Diet/Activity/Treatments Diet: Carb-consistent/Diabetic Discharge Data Primary Care Provider: Sid Bush VTE Deep Vein Thrombosis/Pulmonary Embolism Present on Admission: No
[2022-02-25] MEDS: PANTOPRAZOLE 40 MG VIAL IV (09:31)
[2022-02-25] MEDS: THIAMINE 100 MG TABLET PO (09:36)
[2022-02-25] MEDS: INSULIN GLARGINE 100 UNIT/ML 3ML PEN 18 UNIT SUBCUT (11:08)
--- NOTE | 2022-02-25 12:18 | PC.NURSE ---
Pt is AxOx4, needs 1 person assistance and cooperative. VSS, pt denies pain. Pt had EGD done today and pt has ulcer. Pt's HH-10.0/28.8. Pt is stable. Pt is on tele and it shows sinus ganga. Pt declined all her morning med due to little soreness from EGD. BG-158, pt recieved her Glargine around 1130 due to NPO status till then. Pt declined snack or eat lunch in hospital. Pt stated she is going to eat lunch out with her soon. D/c instructions given to pt and her spouse. No other changes.
== END 2022-02-25 12:24 | disposition home or self-care (01) | DRG 378 ==
LOC: ED 17:21 → AC 17:48
PROVIDERS: Surgery; Admitting Provider Internal Medicine; Emergency Provider Nurse Practitioner Critical Care Medicine; PCP Student in an Organized Health Care Education/Training Program; Referring Provider Emergency Medicine; Visit Provider Internal Medicine
PROC: 0DJ08ZZ Inspection of Upper Intestinal Tract, Via Natural or Artificial Opening Endoscopic (ICD-10-PCS; CPT 43235; principal; 2022-02-25 07:45)
DX: K25.4 Chronic or unspecified gastric ulcer with hemorrhage (principal); D62 Acute posthemorrhagic anemia; F10.10 Alcohol abuse, uncomplicated; E78.5 Hyperlipidemia, unspecified; F41.8 Other specified anxiety disorders; G40.909 Epilepsy, unspecified, not intractable, without status epilepticus; E11.42 Type 2 diabetes mellitus with diabetic polyneuropathy; E11.22 Type 2 diabetes mellitus with diabetic chronic kidney disease; I12.9 Hypertensive chronic kidney disease with stage 1 through stage 4 chronic kidney disease, or unspecified chronic kidney disease; N18.30 Chronic kidney disease, stage 3 unspecified; Z79.4 Long term (current) use of insulin; Z66 Do not resuscitate; Z87.891 Personal history of nicotine dependence; Z20.822 Contact with and (suspected) exposure to COVID-19
CPT/HCPCS: 36415; 36430; 43239; 71045; 80048; 80053; 81001; 81003; 82272; 82962; 83735; 83880; 84145; 84443; 85014; 85018; 85025; 85610; 86850; 86900; 86901; 87633; 93005; 93010; 94760; 96374; 96376; 99232; 99284; C9803; P9016; C9113; J0330; J1815; J2704; J3010

== ENCOUNTER → 2022-03-28 10:01 | Outpatient (CLI) | payer MEDICARE, OTHER, SELFPAY ==
[2022-02-23 19:49] VITALS: BMI 25.3
[2022-03-28 11:34] LABS: Reticulocyte Count, Percent 1.7 % (1.1-2.6)
[2022-03-28 11:36] LABS: Hematocrit 31.2 % (36-46); Hemoglobin 10.6 g/dL (12.0-16.0); Mean Corpuscular Hemoglobin 31.9 PG (26-34); Mean Corpuscular Volume 93.7 fL (80-100); Platelet Count 240 X10^3/uL (150-400); Red Blood Cell Count 3.33 X10^6/uL (4.0-5.2); Red Cell Distribution Width 14.3 % (11.6-14.8); White Blood Cell Count 6.5 X10^3/uL (4.5-11.0)
[2022-03-28 12:00] LABS: HEMOLYSIS < 15 (0-50); Iron 63 ug/dL (37-170)
[2022-03-28 12:05] LABS: Alanine Aminotransferase 13 IU/L (<35); Albumin 4.1 g/dL (3.5-5.0); Albumin Globulin Ratio 1.5 (1.0-2.8); Alkaline Phosphatase 130 U/L (38-126); Aspartate Aminotransferase 30 IU/L (14-36); BUN Creatinine Ratio 15.3 (6-22); Bilirubin Total 0.6 mg/dL (0.2-1.3); Blood Urea Nitrogen 21 mg/dL (7-17); Calcium 8.6 mg/dL (8.4-10.2); Carbon Dioxide 27 mmol/L (22-32); Chloride 102 mmol/L (98-107); Estimated Glomerular Filt Rate 39 mL/min (>60); Globulin 2.7 g/dL (1.7-4.1); Glucose 220 mg/dL (80-110); HEMOLYSIS < 15 (0-50); Potassium 4.6 mmol/L (3.4-5.1); Sodium 136 mmol/L (137-145); Total Protein 6.8 g/dL (6.3-8.2)
[2022-03-28 12:11] LABS: Percent Iron Saturation 17 % (15-50); Total Iron Binding Capacity 373 ug/dL (265-497); Transferrin 290 mg/dL (206-381)
[2022-03-28 12:32] LABS: Ferritin 15 ng/mL (11-264)
[2022-03-29 08:15] LABS: Fructosamine 291 umol/L (0-285)
== END ==
PROVIDERS: PCP Student in an Organized Health Care Education/Training Program; Referring Provider Nurse Practitioner Acute Care; Visit Provider Nurse Practitioner Acute Care
DX: I10 Essential (primary) hypertension (principal); D62 Acute posthemorrhagic anemia; E08.22 Diabetes mellitus due to underlying condition with diabetic chronic kidney disease; F10.20 Alcohol dependence, uncomplicated; K27.9 Peptic ulcer, site unspecified, unspecified as acute or chronic, without hemorrhage or perforation; N17.9 Acute kidney failure, unspecified; N18.32 Chronic kidney disease, stage 3b; Z79.4 Long term (current) use of insulin
CPT/HCPCS: 36415; 80053; 82728; 82985; 83540; 83550; 85027; 85045

== ENCOUNTER → 2022-04-09 14:53 | Outpatient (CLI) | payer MEDICARE, OTHER, SELFPAY ==
[2020-11-05 08:11] VITALS: BMI 24.0
[2022-02-23 19:49] VITALS: BMI 25.3
--- NOTE | 2022-04-09 14:54 | DI.ECHO.S_ITS ---
[place] [facility]---------+ [facility] +---------+ : : [address] : : : : [id number] : : : : Phone: [phone]---------+ Echocardiogram Report + + :Name: DINORA OCONNELL Study Date: 04/09/2022 Height: 64.5 in: :[facility] ReadingLocation: Weight: 152 lb : : Gender: Female BSA: 1.8 m2 : :: 1940 Age: 81 yrs BP: 185/96 mmHg: :Reason For Study: CARDIAC MURMUR : :Ordering Physician: FRANK, : :MICHAEL Performed By: Velvet Osborn : :Referring: MICHAEL MARIE : + + Interpretation Summary The left ventricle is normal in size. The ejection fraction is estimated to be 60-65%. No significant change in LVEF from the previous study. The right ventricle is normal in size and function. There is mild mitral regurgitation. Compared to the prior echo study, there has been an increase in the severity of mitral regurgitation. Trivial to mild TR. The right ventricular systolic pressure is estimated to be at least 36 mmHg based on an estimated right atrial pressure of 3 mm Hg. Previously 22 mmHg. Compared to the prior echo exam, there has been an increase in the severity of pulmonary hypertension. Procedure: A two-dimensional transthoracic echocardiogram with color flow and Doppler was performed. The study quality was technically adequate. Comparison is made with the echocardiogram of 04/01/2019. The patient was in sinus rhythm with heart rates between 66-71 bpm during the exam. Left Ventricle: The left ventricle is normal in size. Proximal septal thickening is noted. There is no echo evidence for significant left ventricular outflow tract obstruction. There is no thrombus. The ejection fraction is estimated to be 60-65%. There are no focal wall motion abnormalities. Diastolic parameters suggest a relaxation abnormality of the left ventricle, consistent with probable normal filling pressures. Right Ventricle: The right ventricle is normal in size and function. Atria: The left atrium is moderately dilated. The left atrium has mildly increased in size since the prior echo exam. Right atrial size is normal. There is no Doppler evidence for an interatrial shunt. Mitral Valve: There is mild mitral annular calcification. There is mild mitral regurgitation. Compared to the prior echo study, there has been an increase in the severity of mitral regurgitation. Aortic Valve: The aortic valve is trileaflet. The aortic valve is mildly calcified. There is minimally reduced leaflet mobility. There is no aortic valve stenosis. There is trace aortic regurgitation. Tricuspid Valve: The tricuspid valve is normal. The right ventricular systolic pressure is estimated to be at least 36 mmHg based on an estimated right atrial pressure of 3 mm Hg. Trivial to mild TR. Compared to the prior echo exam, there has been an increase in the severity of pulmonary hypertension. Pulmonic Valve: The pulmonic valve leaflets are thin and pliable; valve motion is normal. There is a trace or physiologic amount of pulmonic regurgitation. Great Vessels: The aortic root is normal size. The dimensions of the ascending aorta are normal. The IVC is of normal diameter and collapses greater than 50% with a sniff. This suggests a low right atrial pressure of 3 mm Hg. Pericardium/ Pleura There is no pericardial effusion. There is no pleural effusion. MMode/2D Measurements & Calculations LVIDd: 4.5 cm LVOT diam: 1.9 cm LVIDs: 2.9 cm Ao root diam: 2.9 cm FS: 36.3 % asc Aorta Diam: 3.5 cm EPSS: 0.54 cm Ao Arch Diam (Prox Trans): 2.6 cm IVSd: 1.1 cm LVPWd: 1.0 cm LV lemon. diameter/BSA (cm/m^2): 2.6 LV sys. diameter/BSA (cm/m^2): 1.6 LA A2 area: 21.7 cm2 RA long axis: 5.1 cm LA A4 area: 21.5 cm2 RA area: 14.3 cm2 LA length (vol): 5.1 cm RA vol: 34.4 ml LA vol: 77.0 ml RA : 19.7 ml/m2 LA vol index: 44.0 ml/m2 IVC diam: 1.1 cm RVD1 (basal): 3.1 cm RVD2 (mid): 2.8 cm TAPSE: 1.7 cm Doppler Measurements & Calculations Ao V2 max: 173.9 cm/sec LVOT Max Jarred: 118.8 cm/sec Ao V2 mean: 123.3 cm/sec LV V1 max P.6 mmHg Ao max P.1 mmHg LV V1 VTI: 26.9 cm Ao mean P.9 mmHg JOHNNA(I,D): 1.9 cm2 Ao V2 VTI: 40.4 cm JOHNNA(V,D): 2.0 cm2 sev ratio: 0.67 JOHNNA indexed to BSA (cm^2/m^2): 1.1 MV E max jarred: 61.6 cm/sec TR max jarred: 286.5 cm/sec MV A max jarred: 68.8 cm/sec TR max P.8 mmHg MV E/A: 0.90 PA V2 max: 98.5 cm/sec Med Peak E' Jarred: 4.7 cm/sec PA V2 mean: 74.4 cm/sec E/E' med: 13.0 PA mean P.4 mmHg Lat Peak E' Jarred: 7.3 cm/sec PA pr(Accel): 27.6 mmHg E/E' lat: 8.5 E/e' average: 10.8 MV dec time: 0.36 sec SV(LVOT): 78.4 ml Reading Physician:04:52 PM
[2022-04-09 16:38] LABS: Hemoglobin A1C% w Est Avg Glu 6.6 % (4.0-6.0)
== END ==
PROVIDERS: PCP Student in an Organized Health Care Education/Training Program; Referring Provider Nurse Practitioner Acute Care; Visit Provider Nurse Practitioner Acute Care
DX: N18.32 Chronic kidney disease, stage 3b (principal); E11.22 Type 2 diabetes mellitus with diabetic chronic kidney disease; I34.0 Nonrheumatic mitral (valve) insufficiency; I27.20 Pulmonary hypertension, unspecified; Z79.4 Long term (current) use of insulin
CPT/HCPCS: 36415; 83036; 93306

== ENCOUNTER → 2022-04-11 10:14 | Outpatient (CLI) | payer MEDICARE, OTHER, SELFPAY ==
[2022-02-23 19:49] VITALS: BMI 25.3
[2022-04-11 11:16] LABS: BUN Creatinine Ratio 18.6 (6-22); Blood Urea Nitrogen 22 mg/dL (7-17); Carbon Dioxide 24 mmol/L (22-32); Chloride 104 mmol/L (98-107); Estimated Glomerular Filt Rate 46 mL/min (>60); Glucose 155 mg/dL (80-110); HEMOLYSIS 19 (0-50); Potassium 4.5 mmol/L (3.4-5.1); Sodium 139 mmol/L (137-145)
[2022-04-11 11:22] LABS: Hemoglobin A1C% w Est Avg Glu 6.6 % (4.0-6.0)
== END ==
PROVIDERS: PCP Student in an Organized Health Care Education/Training Program; Referring Provider Nurse Practitioner Acute Care; Visit Provider Nurse Practitioner Acute Care
DX: R79.89 Other specified abnormal findings of blood chemistry (principal); E08.22 Diabetes mellitus due to underlying condition with diabetic chronic kidney disease; N18.32 Chronic kidney disease, stage 3b; Z79.4 Long term (current) use of insulin
CPT/HCPCS: 36415; 80048; 83036

== ENCOUNTER → 2022-07-24 12:54 | Outpatient (CLI) | payer MEDICARE, OTHER, SELFPAY ==
[2022-02-23 19:49] VITALS: BMI 25.3
[2022-07-24 14:03] LABS: Add Manual Diff / Slide Review NO; Basophils Absolute Auto 100 /uL (0-100); Basophils Percent Auto 0.6 % (0-2); Eosinophils Absolute Auto 200 /uL (0-450); Eosinophils Percent Auto 2.5 % (2-4); Hematocrit 36.1 % (36-46); Lymphocytes Absolute Auto 1600 /uL (1100-4500); Mean Corpuscular HGB Conc 33.2 % (30-36); Mean Corpuscular Hemoglobin 31.6 PG (26-34); Mean Corpuscular Volume 95.3 fL (80-100); Monocytes Absolute Auto 600 /uL (0-900); Monocytes Percent Auto 6.2 % (3-14); Neutrophils Absolute Auto 7400 /uL (1500-7000); Neutrophils Percent Auto 74.7 % (50-75); Platelet Count 358 X10^3/uL (150-400); Red Blood Cell Count 3.79 X10^6/uL (4.0-5.2); Red Cell Distribution Width 14.1 % (11.6-14.8); White Blood Cell Count 9.9 X10^3/uL (4.5-11.0)
[2022-07-24 14:21] LABS: BUN Creatinine Ratio 15.1 (6-22); Blood Urea Nitrogen 18 mg/dL (7-17); Calcium 8.9 mg/dL (8.4-10.2); Carbon Dioxide 25 mmol/L (22-32); Chloride 99 mmol/L (98-107); Estimated Glomerular Filt Rate 46 mL/min (>60); Glucose 142 mg/dL (80-110); HEMOLYSIS 22 (0-50); Magnesium 1.6 mg/dL (1.6-2.3); Phosphorous 3.6 mg/dL (2.8-4.1); Potassium 4.4 mmol/L (3.4-5.1); Sodium 135 mmol/L (137-145); Uric Acid 8.9 mg/dL (2.5-6.2)
--- NOTE | 2022-07-24 16:45 | DI.MG.S_ITS ---
BILATERAL DIGITAL SCREENING MAMMOGRAM 3D/2D WITH CAD: 07/24/2022 CLINICAL: Routine screening. Family history of breast cancer. Comparison is made to exams dated: 07/04/2021 mammogram, 05/17/2020 mammogram, and 05/16/2019 mammogram - [facility]. Both breasts are heterogeneously dense, which may obscure small masses (category c / 51-75% glandular tissue). Current study was also evaluated with a Computer Aided Detection (CAD) system. There are benign vascular calcifications in both breasts. No significant masses, calcifications, or other findings are seen in either breast. There has been no significant interval change. IMPRESSION: BENIGN There is no mammographic evidence of malignancy. A 1 year screening mammogram is recommended. Based on the Tyrer Cuzick model (a risk assessment model) the patient's lifetime risk is 1.9% and her 10 year risk is 0.0%. According to the ACR, ACS, and NCCN guidelines, an annual breast MRI exam along with mammogram is recommended if the patient's lifetime risk is 20% or greater. This exam was interpreted at Station ID: [id number]. NOTE: For mammograms, a report in lay terms will be sent to the patient. Approximately 15% of breast malignancies will not be visualized mammographically. In the management of a palpable breast mass, a negative mammogram must not discourage biopsy of a clinically suspicious lesion. Electronically Signed By: Benjamin mack/maral:07/25/2022 12:05:56 letter sent: Normal Exam ACR BI-RADS Category 2: Benign Finding(s) 3342F
[2022-07-24 18:37] LABS: Creatinine Urine Random 67.7 mg/dL
[2022-07-24 18:41] LABS: Microalbumi Creatinin Ratio Ur 39.8 ug/mg CR (<30); Microalbumin Urine Random 2.7 mg/dL (0-1.6)
[2022-07-24 18:59] LABS: Bacteria Urine Moderate (10-30); Culture Indicated Urine Specimen Cultured; RBC Urine 0-1/HPF (0-5/HPF); Squamous Epithelial Cell Urine 5-10 /HPF (0-5/HPF); WBC Urine 5-10/HPF (0-5/HPF)
[2022-07-25 07:19] LABS: Parathyroid Hormone Int 55 pg/mL (15-65)
== END ==
PROVIDERS: PCP Student in an Organized Health Care Education/Training Program; Referring Provider Student in an Organized Health Care Education/Training Program; Visit Provider Student in an Organized Health Care Education/Training Program
DX: Z80.3 Family history of malignant neoplasm of breast (principal); Z12.31 Encounter for screening mammogram for malignant neoplasm of breast; N18.31 Chronic kidney disease, stage 3a
CPT/HCPCS: 36415; 77063; 77067; 80048; 81015; 82043; 82570; 83735; 83970; 84100; 84550; 85025; 87086

== ENCOUNTER 2022-08-26 10:41 | Emergency (ER) | payer MEDICARE, OTHER, SELFPAY ==
[2022-02-23 19:49] VITALS: BMI 25.3
[2022-08-26 11:02] VITALS: BP 225/103; PULSE 91; RESP 18; TEMP 37.2; O2SAT 99; BMI 25.2
--- NOTE | 2022-08-26 11:25 | ED.GIBLEED ---
HPI - GI Bleed General Chief complaint: GI Bleed Stated complaint: black stool,diarrhea Time Seen by Provider: 08/26/22 11:10 Source: patient Mode of arrival: Ambulatory Limitations: no limitations History of Present Illness HPI Narrative: Patient is an 82-year-old female. Not on anticoagulation. Does use a walker secondary to some left-sided weakness after a stroke. She does take Advil every night before she goes to bed. She does occasionally drink wine. She has had an esophageal ulceration in the past. Has had a colonoscopy in the past but she does not remember when it was. Has never been abnormal. She is here for a couple days of black colored stools and then approximately 24 hours of diarrhea. No fevers. No chest pain. She does have upper abdominal pain. No urinary symptoms. Is not on any sort of anti-reflux/ulceration medications. Related Data Home Medications Medication Instructions Recorded Confirmed propranolol 20 mg tablet 20 mg PO BID 11/30/19 06/23/22 atorvastatin 80 mg tablet 80 mg PO BEDTIME 06/15/20 06/23/22 chlorthalidone 25 mg tablet 12.5 mg PO DAILY 06/15/20 06/23/22 Previous Rx's Medication Instructions Recorded lisinopril 20 mg tablet 20 mg PO BID #180 tabs 02/20/21 one touch verio test strips #300 ea 11/11/21 gabapentin 600 mg tablet 600 mg PO BEDTIME #30 tabs 02/25/22 (Neurontin) multivitamin with folic acid 400 1 tab PO DAILY #30 tabs 02/25/22 mcg tablet (Tab-A-Evy) insulin detemir U-100 100 unit/mL See Rx Instructions SUBCUT 06/23/22 (3 mL) subcutaneous pen .COMPLEX #15 mL sertraline 50 mg tablet 50 mg PO DAILY #90 tabs 06/30/22 omeprazole 20 mg capsule,delayed 20 mg PO DAILY 14 days #14 caps 08/26/22 release Allergies Allergy/AdvReac Type Severity Reaction Status Date / Time oxycodone [From Percocet] AdvReac Nausea Verified 08/26/22 11:02 Review of Systems Constitutional Constitutional: Reports system reviewed and no additional complaints, except as documented Cardiovascular Cardiovascular: Reports system reviewed and no additional complaints, except as documented Respiratory Respiratory: Reports system reviewed and no additional complaints, except as documented Gastrointestinal Gastrointestinal: Reports system reviewed and no additional complaints, except as documented Genitourinary Genitourinary: Reports system reviewed and no additional complaints, except as documented Integumentary/Breasts Skin/Breast: Reports system reviewed and no additional complaints, except as documented Neurologic Neurologic: Reports system reviewed and no additional complaints, except as documented Hematologic/Lymphatic On Anticoagulants: No Patient History Medical History Acute GI bleeding Alcohol abuse Anxiety Cellulitis of hand, right Neuropathy Panic attack Vitamin D deficiency Surgical History History of History of ectopic Family History Father No problems noted. Mother Dementia Social History household members: spouse lives independently: Yes Smoking Status: Former smoker alcohol intake: current Smoking Status: Former smoker alcohol intake frequency: a few times a week Alcohol type: wine Substance Use Type: does not use Exam Initial Vital Signs Initial Vital Signs: Vital Signs Temperature 98.9 F 08/26/22 11:02 Pulse Rate 91 H 08/26/22 11:02 Respiratory Rate 18 08/26/22 11:02 Blood Pressure 225/103 H 08/26/22 11:02 Pulse Oximetry 99 08/26/22 11:02 Oxygen Delivery Method 08/26/22 11:02 [facility] Head: normal to inspection and normocephalic Resp Effort & Inspection: normal respiratory effort Auscultation: clear to auscultation bilaterally Cardio Rate: regular rate Rhythm: regular rhythm GI Inspection: normal to inspection Palpation: soft and tender (Mild tenderness upper abdomen) Rectal Exam: visual inspection normal, heme negative stool and No hemorrhoids Skin General: no rashes or lesions noted Neuro General: patient alert, patient awake, patient oriented x3 and moves all extremities Speech: speech normal Extrem General: capillary refill normal Psych Appearance: grossly normal and well kempt Course Orders Ordered: ED Orders 08/26/22 11:05 Basic Metabolic Panel Stat Complete Blood Count AUTO DIFF Stat Vital Signs Vital signs: Vital Signs - 8 hr 08/26/22 11:02 Temperature 98.9 F Pulse Rate 91 H Respiratory Rate 18 Blood Pressure 225/103 H Pulse Oximetry 99 Oxygen Delivery Method Room Air [facility] - GI Bleed Lab Data Attestation: I reviewed the patient's lab results. Result diagrams: 08/26/22 11:05 08/26/22 11:05 Labs: Lab Results 08/26/22 08/26/22 Range/Units 11:05 11:05 WBC 9.2 (4.5-11.0) X10^3/uL RBC 3.55 L (4.0-5.2) X10^6/uL Hgb 11.4 L (12.0-16.0) g/dL Hct 33.9 L (36-46) % MCV 95.5 (80-100) fL MCH 32.2 (26-34) PG MCHC 33.7 (30-36) % RDW 14.0 (11.6-14.8) % Plt Count 359 (150-400) X10^3/uL Neut % (Auto) 77.9 H (50-75) % Lymph % (Auto) 15.1 L (25-40) % [place] % (Auto) 4.6 (3-14) % Eos % (Auto) 1.7 L (2-4) % Baso % (Auto) 0.7 (0-2) % Neut # (Auto) 7200 H (3196-6726) /uL Lymph # (Auto) 1400 (3454-9164) /uL [place] # (Auto) 400 (0-900) /uL Eos # (Auto) 200 (0-450) /uL Baso # (Auto) 100 (0-100) /uL Sodium 136 L (137-145) mmol/L Potassium 4.3 (3.4-5.1) mmol/L Chloride 100 (98-107) mmol/L Carbon Dioxide 25 (22-32) mmol/L BUN 14 (7-17) mg/dL Creatinine 1.17 H (0.52-1.04) mg/dL Estimated GFR 47 L (>60) mL/min BUN/Creatinine Ratio 12.0 (6-22) Glucose 151 H (80-110) mg/dL Calcium 8.8 (8.4-10.2) mg/dL Urine Dip Bedside Urine Glucose Negative Bedside Urine Bilirubin - Negative Bedside Urine Ketone - Negative Urine Specific Alexander 1.010 Bedside Urine Occult Blood - Negative Bedside Urine pH 7.5 Bedside Urine Protein - Negative Bedside Urine Urobilinogen - Negative Bedside Urine Nitrite - Negative Bedside Urine Leukocytes - Negative Esterase MDM Narrative Medical decision making narrative: Her Hemoccult test here in the ER was negative. She has had esophageal/upper GI issues in the past. She does take an anti-inflammatory each night. She also drinks alcohol. She is multiple reasons that she maybe having a GI bleed. Her vital signs are unremarkable. She is actually hypertensive. Not tachycardic. Not anemic. Her dark colored stools could also be from another issue. She states she does take Pepto-Bismol. No indication for admission to the hospital today but she does need follow-up with general surgery for colonoscopy and upper endoscopy. I did discuss this with her. We will put her on a proton pump inhibitor. She was given return precautions and follow-up instructions. She expressed understanding and agreement. Discharge Plan Departure Patient Disposition: Home Clinical Impression: Complaint of melena Instructions: Gastrointestinal Bleeding Activity Restrictions/Additional Instructions: I do recommend that you stop taking the Advil that you are taking each night. You can take Tylenol instead. Be sure you are doing this was some food. We are going to start you on a class of a medicine called a proton pump inhibitor. Please take this as directed. I recommend you contact the general surgery department at the number provided below for follow-up to discuss a upper endoscopy/colonoscopy. Return to the emergency department for any new or worsening symptoms. Prescriptions: New omeprazole 20 mg capsule,delayed release(DR/EC) 20 mg PO DAILY 14 Days Qty: 14 0RF No Action lisinopril 20 mg tablet 20 mg PO BID Qty: 180 2RF (DME) one touch verio test strips See Rx Instructions .Route .MEDSUPPLY Qty: 300 3RF Rx Instructions: use to check blood sugar twice daily insulin detemir U-100 100 unit/mL (3 mL) insulin pen See Rx Instructions SUBCUT .COMPLEX Qty: 15 3RF Rx Instructions: 34 units in the morning and 22 units in the evening SUBCUT; // sertraline 50 mg tablet 50 mg PO DAILY Qty: 90 1RF chlorthalidone 25 mg tablet 12.5 mg PO DAILY atorvastatin 80 mg tablet 80 mg PO BEDTIME propranolol 20 mg Tablet 20 mg PO BID gabapentin [Neurontin] 600 mg Tablet 600 mg PO BEDTIME Qty: 30 0RF multivitamin with folic acid [Tab-A-Evy] 400 mcg Tablet 1 tab PO DAILY Qty: 30 0RF Referrals: Sid Bush MD [Primary Care Provider] - Rafal Cruz MD [Physician] -
[2022-08-26 11:29] LABS: Add Manual Diff / Slide Review NO; Basophils Absolute Auto 100 /uL (0-100); Basophils Percent Auto 0.7 % (0-2); Eosinophils Absolute Auto 200 /uL (0-450); Eosinophils Percent Auto 1.7 % (2-4); Hematocrit 33.9 % (36-46); Hemoglobin 11.4 g/dL (12.0-16.0); Lymphocytes Absolute Auto 1400 /uL (1100-4500); Lymphocytes Percent Auto 15.1 % (25-40); Mean Corpuscular HGB Conc 33.7 % (30-36); Mean Corpuscular Hemoglobin 32.2 PG (26-34); Mean Corpuscular Volume 95.5 fL (80-100); Monocytes Absolute Auto 400 /uL (0-900); Monocytes Percent Auto 4.6 % (3-14); Neutrophils Absolute Auto 7200 /uL (1500-7000); Neutrophils Percent Auto 77.9 % (50-75); Platelet Count 359 X10^3/uL (150-400); Red Blood Cell Count 3.55 X10^6/uL (4.0-5.2); White Blood Cell Count 9.2 X10^3/uL (4.5-11.0)
[2022-08-26 11:45] LABS: Blood Urea Nitrogen 14 mg/dL (7-17); Calcium 8.8 mg/dL (8.4-10.2); Carbon Dioxide 25 mmol/L (22-32); Chloride 100 mmol/L (98-107); Estimated Glomerular Filt Rate 47 mL/min (>60); Glucose 151 mg/dL (80-110); HEMOLYSIS < 15 (0-50); Potassium 4.3 mmol/L (3.4-5.1); Sodium 136 mmol/L (137-145)
[2022-08-26 12:26] VITALS: BP 204/95; PULSE 86; RESP 14; O2SAT 99
== END 2022-08-26 12:35 | disposition home or self-care (01) ==
PROVIDERS: Emergency Provider Emergency Medicine; PCP Student in an Organized Health Care Education/Training Program
DX: K92.1 Melena (principal); Z79.899 Other long term (current) drug therapy
CPT/HCPCS: 36415; 80048; 81003; 85025; 99283

== ENCOUNTER → 2022-09-03 10:29 | Outpatient (CLI) | payer MEDICARE, OTHER, SELFPAY ==
[2022-08-27 15:42] VITALS: BMI 25.3
[2022-09-03 12:59] LABS: COVID19 -Nasal RAPID Negative (Negative)
== END ==
PROVIDERS: PCP Student in an Organized Health Care Education/Training Program; Visit Provider Surgery
DX: Z01.812 Encounter for preprocedural laboratory examination (principal); Z20.822 Contact with and (suspected) exposure to COVID-19
CPT/HCPCS: 87635; C9803

== ENCOUNTER 2022-09-04 12:40 | Day surgery (SDC) | payer MEDICARE, OTHER, SELFPAY ==
[2022-08-27 15:42] VITALS: BMI 25.3
--- NOTE | 2022-09-04 | PATH_ITS ---
[facility] Accession Number: [id number] . 01 Material submitted: . PART A: duodenum bulb - DUODENAL BULB PART B: stomach - ANTRUM PART C: cecum - CECAL POLYP . 01 Diagnosis: A. Duodenum, Biopsy: Small bowel mucosa with focal active inflammation and foveolar metaplasia, consistent with peptic duodenitis. Negative for features of sprue, dysplasia or malignancy. . B. Antrum, Biopsy: Gastric antral mucosa with minimal chronic inflammation. Negative for Helicobacter organisms by immunohistochemistry. Negative for intestinal metaplasia. Negative for dysplasia or malignancy. . C. Cecal Polyp: Colonic mucosa with no diagnostic abnormality, consistent with polypoid redundancy. Negative for serrated lesion, dysplasia or malignancy. Additional step sections examined. MRV 09/10/2022 1319 Local . 01 Electronically signed: . Garett Biswas MD, PhD, Pathologist NPI- [id number] . 01 Gross description: . The specimen is received in formalin in three parts all labeled with the patient's name and . . A. Designated duodenal bulb biopsy and consists of two irregular allen soft tissue fragments ranging from 0.2 to 0.3 cm in greatest dimension. Submitted entirely in cassette A1. B. Designated antrum biopsy and consists of four irregular allen soft tissue fragments ranging from 0.1 to 0.2 cm in greatest dimension. Submitted entirely in cassette B1. C. Designated cecal polyp and consists of two irregular allen soft tissue fragments, ranging from 0.4 to 0.8 cm in greatest dimension. Submitted entirely in cassette C1. ([id number]) /[facility] 09/05/2022 1714 Local . 01 Microscopic: . B. An immunohistochemical stain was performed to evaluate for Helicobacter organisms and is negative. The control stain showed appropriate reactivity. . * This test was developed and its performance characteristics determined by [facility]. It has not been cleared or approved by the U.S. Food and Drug Administration. The FDA has determined that such clearance or approval is not necessary. This test is used for clinical purposes. It should not be regarded as investigational or for research. . 01 Pathologist provided ICD-10: K92.2, K29.80, K29.70, K63.5 . 01 CPT . 875171, 983419, 798483, S18030 Specimen Comment: A courtesy copy of this report has been sent to [phone] Performed at: 01 [facility] [address] [place] [address] Suite [facility], [place], [place] [id number] MD Nicho Celeste MD Phone: [phone]
[2022-09-04 14:27] VITALS: BP 213/99; PULSE 107; RESP 16; TEMP 36.8; O2SAT 99; BMI 25.5
[2022-09-04] MEDS: LACTATED RINGERS 1,000 ML 42 ML IV (14:27)
--- NOTE | 2022-09-04 15:43 | PM.HP.1 ---
History of Present Illness History of Present Illness Date Patient Seen: 09/04/22 Time Patient Seen: 15:43 Chief complaint: SDC Narrative: Amanda is an 82-year-old woman who was seen recently in the emergency department recently with complaints of melena although she does not remember this event. She was uncertain when her last endoscopy procedure was. She was scheduled for an EGD and colonoscopy. Patient History Medical History Acute GI bleeding Alcohol abuse Anxiety Cellulitis of hand, right Neuropathy Panic attack Vitamin D deficiency Surgical History History of History of ectopic Family & Social History Family History Father No problems noted. Mother Dementia Social History: household members spouse lives independently Yes Tobacco & Substance use: Tobacco type cigarettes Smoking Status Former smoker alcohol intake current alcohol intake frequency a few times a week Substance Use Type does not use Meds Home Medications and Allergies Home Medications Medication Instructions Recorded Confirmed Type atorvastatin 80 mg tablet 80 mg PO BEDTIME 06/15/20 09/04/22 History chlorthalidone 25 mg tablet 12.5 mg PO DAILY 06/15/20 09/04/22 History lisinopril 20 mg tablet 20 mg PO BID #180 tabs 02/20/21 09/04/22 Rx one touch verio test strips #300 ea 11/11/21 09/04/22 Rx gabapentin 600 mg tablet 600 mg PO BEDTIME #30 tabs 02/25/22 09/04/22 Rx (Neurontin) insulin detemir U-100 100 unit/mL See Rx Instructions SUBCUT 06/23/22 09/04/22 Rx (3 mL) subcutaneous pen .COMPLEX #15 mL sertraline 50 mg tablet 50 mg PO DAILY #90 tabs 06/30/22 09/04/22 Rx sodium,potassium,mag sulfates 17.5 See Rx Instructions PO .COMPLEX 08/27/22 09/04/22 Rx gram-3.13 gram-1.6 gram oral soln #354 mL (Suprep Bowel Prep Kit) aspirin 81 mg capsule mg 09/04/22 History carvedilol 12.5 mg tablet mg 09/04/22 History Allergies Allergy/AdvReac Type Severity Reaction Status Date / Time oxycodone [From Percocet] AdvReac Nausea Verified 08/26/22 11:02 Exam Vital Signs (past 8 hours): - 09/04/22 14:27 Temperature 98.3 F Pulse Rate 107 H Respiratory Rate 16 Blood Pressure 213/99 H Pulse Oximetry 99 Oxygen Delivery Method Room Air Oxygen Delivery Method Room Air Const General: No acute distress Assessment & Plan Assessment and plan (1) Complaint of melena: Status: Acute Plan We reviewed the risks and benefits of EGD and colonoscopy and she would like to proceed. Time Spent With Patient Critical Care time: I spent a total of [] minutes of critical care time on this patient's care today; this time is exclusive of procedural time.
--- NOTE | 2022-09-04 16:26 | P.OP.EGD&C_ITS ---
Operative Date/Time/Diagnoses Date of procedure: 09/04/22 Time of procedure: 16:27 Pre-op diagnosis: Melena Post-op diagnosis: same Procedure & Clinicians Study performed: EGD and colonoscopy Same procedure as scheduled: Yes Surgeon: Rafal Cruz Procedure Notes Procedure in detail: Surgeon: Rafal Cruz MD Anesthesia: Dr. Reich Procedure in detail: A timeout was performed. A bite blocked was placed and monitors were attached to the patient. The patient was positioned in a left la teral decubitus position. Sedation was administered by Dr. Reich. Once the patient was sedated the endoscope was inserted through the bite block and passed through the esophagus and stomach and into the duodenum. There were 2 rather large ulcers in the duodenal bulb which were not actively bleeding. There was no visible vessel. We took some random biopsies from the duodenal bulb mucosa near adjacent to the ulcers. We then withdrew the scope into the stomach. No gastric ulcers were seen. Random biopsies were taken from the antrum. The endoscope was retroflexed and no hiatal hernia was seen. The endoscope was straightned and withdrawn into the esophagus. No abnormalities were seen in the esophagus Findings: Duodenal bulb ulcers with clean bases and no visible vessel Next we repositioned the patient for a colonoscopy. A digital rectal exam was performed and was normal. The colonoscope was inserted and advanced to the cecum. The appendiceal orifice was identified and photographed. The scope was slowly withdrawn over greater than 6 minutes. There was a 5 mm cecal polyp that was removed with a cold snare. The rest of the colon appeared normal. The scope was retroflexed in the rectum and no abnormalities were noted other than some internal hemorrhoids. Findings: 5 mm Cecal polyp EBL: 5 mL Scope withdrawal time: 6 minutes Sedation minutes: 32 minutes Post-procedure Disposition: PACU
[2022-09-04 16:30] VITALS: BP 126/73; PULSE 77; RESP 14; TEMP 35.9; O2SAT 99
[2022-09-04 16:35] VITALS: BP 119/73; PULSE 77; RESP 19; O2SAT 98
[2022-09-04 16:40] VITALS: BP 153/68; PULSE 76; RESP 13; O2SAT 99
[2022-09-04 16:45] VITALS: BP 186/115; PULSE 78; RESP 11; O2SAT 100
[2022-09-04 16:49] VITALS: BP 173/68; PULSE 82; RESP 20; TEMP 36.1; O2SAT 98
== END 2022-09-04 17:04 | disposition admitted as inpatient to this hospital (09) ==
PROVIDERS: PCP Student in an Organized Health Care Education/Training Program; Referring Provider Surgery; Visit Provider Surgery
PROC: 0DJ08ZZ Inspection of Upper Intestinal Tract, Via Natural or Artificial Opening Endoscopic (ICD-10-PCS; CPT 43235; principal; 2022-09-04 14:00)
PROC: 0DJD8ZZ Inspection of Lower Intestinal Tract, Via Natural or Artificial Opening Endoscopic (ICD-10-PCS; CPT 45378; 2022-09-04 14:00)
DX: K92.1 Melena (principal); K29.50 Unspecified chronic gastritis without bleeding; K26.9 Duodenal ulcer, unspecified as acute or chronic, without hemorrhage or perforation
CPT/HCPCS: 45385; 43239

== ENCOUNTER → 2022-10-21 09:35 | Outpatient (CLI) | payer MEDICARE, OTHER, SELFPAY ==
[2022-08-27 15:42] VITALS: BMI 25.3
[2022-10-21 10:39] LABS: BUN Creatinine Ratio 13.8 (6-22); Blood Urea Nitrogen 16 mg/dL (7-17); Calcium 9.3 mg/dL (8.4-10.2); Carbon Dioxide 25 mmol/L (22-32); Chloride 99 mmol/L (98-107); Estimated Glomerular Filt Rate 47 mL/min (>60); Glucose 136 mg/dL (80-110); HEMOLYSIS < 15 (0-50); Potassium 4.4 mmol/L (3.4-5.1); Sodium 137 mmol/L (137-145)
== END ==
PROVIDERS: PCP Student in an Organized Health Care Education/Training Program; Referring Provider Student in an Organized Health Care Education/Training Program; Visit Provider Student in an Organized Health Care Education/Training Program
DX: N18.32 Chronic kidney disease, stage 3b (principal); E08.22 Diabetes mellitus due to underlying condition with diabetic chronic kidney disease; Z79.4 Long term (current) use of insulin
CPT/HCPCS: 36415; 80048; 83036

== ENCOUNTER → 2022-11-24 15:02 | Outpatient (CLI) | payer MEDICARE, OTHER, SELFPAY ==
[2022-08-27 15:42] VITALS: BMI 25.3
[2022-11-25 22:32] LABS: Fructosamine 270 umol/L (0-285)
== END ==
PROVIDERS: Family Provider Student in an Organized Health Care Education/Training Program; PCP Student in an Organized Health Care Education/Training Program; Referring Provider Student in an Organized Health Care Education/Training Program; Visit Provider Student in an Organized Health Care Education/Training Program
DX: N18.32 Chronic kidney disease, stage 3b (principal); Z79.4 Long term (current) use of insulin; E08.22 Diabetes mellitus due to underlying condition with diabetic chronic kidney disease
CPT/HCPCS: 36415; 82985

== ENCOUNTER → 2022-11-25 14:32 | Outpatient (CLI) | payer MEDICARE, OTHER, SELFPAY ==
[2022-08-27 15:42] VITALS: BMI 25.3
[2022-11-25 15:33] LABS: Creatinine Urine Random 123.9 mg/dL
[2022-11-25 15:34] LABS: Blood Urea Nitrogen 15 mg/dL (7-17); Calcium 8.9 mg/dL (8.4-10.2); Carbon Dioxide 25 mmol/L (22-32); Chloride 103 mmol/L (98-107); Estimated Glomerular Filt Rate 43 mL/min (>60); Glucose 173 mg/dL (80-110); HEMOLYSIS < 15 (0-50); Magnesium 1.6 mg/dL (1.6-2.3); Phosphorous 4.3 mg/dL (2.8-4.1); Potassium 4.6 mmol/L (3.4-5.1); Sodium 138 mmol/L (137-145); Uric Acid 9.1 mg/dL (2.5-6.2)
[2022-11-25 15:38] LABS: Microalbumi Creatinin Ratio Ur 10.4 ug/mg CR (<30); Microalbumin Urine Random 1.3 mg/dL (0-1.6)
[2022-11-25 15:49] LABS: Vitamin D 25 Hydroxy (D3) 91.2 ng/mL (30.0-100.0)
[2022-11-27 08:30] LABS: Parathyroid Hormone Int 51 pg/mL (15-65)
== END ==
PROVIDERS: Family Provider Student in an Organized Health Care Education/Training Program; PCP Student in an Organized Health Care Education/Training Program; Referring Provider Internal Medicine Nephrology; Visit Provider Internal Medicine Nephrology
DX: N18.31 Chronic kidney disease, stage 3a (principal)
CPT/HCPCS: 36415; 80048; 82043; 82306; 82570; 83735; 83970; 84100; 84550

== ENCOUNTER → 2022-12-02 13:59 | Outpatient (CLI) | payer MEDICARE, OTHER, SELFPAY ==
[2022-08-27 15:42] VITALS: BMI 25.3
--- NOTE | 2022-12-02 14:01 | DI.RAD.S_ITS ---
Bone Density Report Name: DINORA OCONNELL Age: 82 Sex: Female Ethnicity: White Date of : 1940 Indication: UNAPPROVED postmenopausal; screening for osteoporosis; Referring Provider: YENI ANDRADE Study: Bone densitometry was performed. Exam Date: December 02, 2022 Accession number: [id number] Bone Density: Region BMD T-score Z-score Classification AP Spine(L1-L4) 1.051 0.0 2.8 Normal Femoral Neck (Left) 0.678 -1.5 0.8 Osteopenia Total Hip (Left) 0.860 -0.7 1.5 Normal Femoral Neck (Right) 0.716 -1.2 1.2 Osteopenia Total Hip (Right) 0.891 -0.4 1.7 Normal Total Hip Mean 0.876 -0.6 1.6 Normal World Health Organization criteria for BMD impression classify patients as: Normal (T-score at or above -1.0), Osteopenia (T-score between -1.0 and -2.5), or Osteoporosis (T-score at or below -2.5). 10-year Fracture Risk(1): Major Osteoporotic Fracture 13% Hip Fracture 3.5% Reported Risk Factors: [place] (), Neck BMD=0.678, BMI=24.0 (1) FRAX(R) Version 3.08. Fracture probability calculated for an untreated patient. Fracture probability may be lower if the patient has received treatment. Previous Exams: -- Region Exam Age BMD T-score BMD Change BMD Change Date g/cm2 vs Baseline vs Previous -- AP Spine (L1-L4) 12/02/2022 82 1.051 0.0 -0.077 (-6.8%)# -0.077 (-6.8%)# 08/19/2018 78 1.129 0.7 Total Hip(Left) 12/02/2022 82 0.860 -0.7 -0.094 (-9.9%)# -0.094 (-9.9%)# 08/19/2018 78 0.954 0.1 Total Hip(Right) 12/02/2022 82 0.891 -0.4 -0.068 (-7.1%)# -0.068 (-7.1%)# 08/19/2018 78 0.959 0.1 -- *Denotes significance at 95% confidence level, LSC for AP Spine = 0.022 g/cm2, LSC for Total Hip = 0.027 g/cm2 # Denotes dissimilar scan types or analysis methods Impression: UNAPPROVED The patient has low bone mass, based on the Left Femoral Neck T-score. The patient has an estimated ten-year risk of hip fracture of 3.5% and an estimated ten-year risk of major fracture of 13%, based on the WHO FRAX algorithm. No significant bone loss was observed. Discussion: UNAPPROVED BONE DENSITY IS LOW AT ONE OR MORE SKELETAL SITES. THE PATIENT'S BMD AND CLINICAL RISK FACTORS CONTRIBUTE TO THIS PATIENT'S INCREASED RISK OF FRACTURE. This patient's lowest T-score is low at one or more skeletal sites. It meets the World Health Organization's (WHO) criteria for low bone mass (T-score between -1.0 and -2.5). The patient's 10-year risk of hip fracture as calculated by FRAX exceeds the threshold where pharmacological therapy is recommended by the National Osteoporosis Foundation (NOF). However, all treatment decisions require clinical judgment and consideration of individual patient factors, including patient preferences, comorbidities, previous drug use, risk factors not captured in the FRAX model (e.g., frailty, falls, vitamin D deficiency, increased bone turnover, interval significant decline in bone density) and possible under or overestimation of fracture risk by FRAX. The patient should follow a healthful lifestyle (good nutrition with adequate calcium and vitamin D, and appropriate weight-bearing exercise). Follow-Up: UNAPPROVED Consider a repeat BMD and Vertebral Fracture Assessment (VFA) exam in 2 years or sooner if medically necessary, to reassess this patient's status. Reported by: HEBERT MONTIEL M.D on 12/02/2022 1:28:00 PM.
== END ==
PROVIDERS: Family Provider Student in an Organized Health Care Education/Training Program; PCP Student in an Organized Health Care Education/Training Program; Referring Provider Student in an Organized Health Care Education/Training Program; Visit Provider Student in an Organized Health Care Education/Training Program
DX: Z78.0 Asymptomatic menopausal state (principal); Z13.820 Encounter for screening for osteoporosis; M85.852 Other specified disorders of bone density and structure, left thigh
CPT/HCPCS: 77080

== ENCOUNTER 2023-02-13 12:00 | Outpatient (RCR) | payer MEDICARE, OTHER, SELFPAY ==
[2022-08-27 15:42] VITALS: BMI 25.3
--- NOTE | 2022-12-16 16:00 | PT.OIE ---
Current Diagnoses Other abnormalities of gait and mobility (12/16/22) Other symptoms and signs involving the musculoskeletal system (12/16/22) Past Medical History (Last Updated 09/06/22 @ 08:54 by Sid Bush MD) Anxiety Cellulitis of hand, right Neuropathy Panic attack Vitamin D deficiency Past Surgical History (Last Reviewed 02/23/22 @ 22:07 by HAYLEE Ratliff) History of History of ectopic Visit Care Team Role Provider Type Sid Bush MD Attending Provider Physician Family Provider Primary Care Provider Referring Provider Specialty: Internal Medicine Address: [address] [place] [address], [facility] Email: [email or web address] Physical Therapy Initial Evaluation PT-OP-A Visit Information Start: 12/15/22 15:43 Freq: Status: Active Protocol: Document 12/16/22 14:34 AMB (Rec: 12/16/22 15:12 AMB [id number]) Out-Patient Physical Therapy Visit Information Visit Information Visit Type Initial Evaluation Visit Start Time 14:30 Visit Stop Time 15:15 Total Visit Minutes 45 Visit Number 1 PT-OP-B Current Condition Start: 12/15/22 15:43 Freq: Status: Active Protocol: Document 12/16/22 14:34 AMB (Rec: 12/16/22 15:12 AMB [id number]) Current Condition History of Current Condition Onset Date 1 year ago Current Complaints gait disturbance s/p CVA History of Current Condition 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 Uses a walker most of the time, especially in the community. Has a three pronged cane. Also walk on the the deck with her with hovering the hand over the railing. Does have neuropathy in hands and feet. Prior Treatments and Tests Previous PT worked on improving walking and gait Treatment Goals Patient/Caregiver Goals Pt goal is to walk without walker Personal Factors Other Personal Factors That May Effect Neuropathy significantly Therapy/Recovery limits sensation in bilateral feet PT-OP-C Subjective Start: 12/15/22 15:43 Freq: Status: Active Protocol: Document 12/16/22 15:45 AMB (Rec: 12/16/22 16:06 AMB [id number]) Patient Questionnaires ABC- Activity Specific Balance Confidence Scale ABC Score 40 ABC Functional Impairment 60 to <80% Impaired (Score 21- 40) PT-OP-D Balance Start: 12/15/22 15:43 Freq: Status: Active Protocol: Document 12/16/22 14:30 AMB (Rec: 12/16/22 16:11 AMB [id number]) OP-PT Balance Assessment Standing Balance Standing Balance Comments NBOS EO- fall; WBOS EC- fall Johnson Fall Scale Copyright Permission PT-OP-E Functional Tests Start: 12/15/22 15:43 Freq: Status: Active Protocol: Document 12/16/22 14:34 AMB (Rec: 12/16/22 15:12 AMB [id number]) Functional Tests Five Times Sit to Stand Test Score 8 seconds Comments no UE support PT-OP-G Mobility & Gait Start: 12/15/22 15:43 Freq: Status: Active Protocol: Document 12/16/22 14:30 AMB (Rec: 12/16/22 16:10 AMB [id number]) OP Gait Assessment Comments Gait Comments Pt ambulates with FWW with reduced ankle dorsiflexion bilaterally, worst on the L, compensates wiht increased knee flexion, tends to hold the left knee in a bent position even in stance. With ambulating without AD needs CGA and railing nearby, increases PAULO. Unstable when turning body or turning head. 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 PT-OP-M Strength Start: 12/15/22 15:43 Freq: Status: Active Protocol: Document 12/16/22 14:34 AMB (Rec: 12/16/22 15:12 AMB [id number]) Hip Strength Hip Manual Muscle Testing Left Flexion (L2) 4 Good Extension (S1) 4- Good- Abduction 4 Good Knee Strength Knee Manual Muscle Testing Left Flexion (S2) 4+ Good+ Extension (L3) 4 Good Ankle/Foot Strength Ankle and Foot Manual Muscle Testing Right Dorsiflexion (L4) 4 Good Plantarflexion (S1) 4 Good Left Dorsiflexion (L4) 3 Fair Plantarflexion (S1) 3 Fair PT-OP-T Assessment and Plan Start: 12/15/22 15:43 Freq: Status: Active Protocol: Document 12/16/22 14:30 AMB (Rec: 12/17/22 09:03 AMB [id number]) Physical Therapy Assessment Rehab Potential Rehabilitation Potential Good Evaluation Complexity Number of Personal Factors/Comorbidities 3 or More Number of Body Systems Impaired 4 or More Clinical Presentation at Evaluation Stable Impairments Impairments Balance,Gait,ROM,Sensation, Strength Goals Two Impairment Balance Short Term Goal (STG) Amanda Pappas will balance with NBOS for 30 seconds wihtout LOB. STG Duration 4 weeks Mcfp Goal (LTG) Amanda Pappas will show improved dynamic balance by scoring at least 20/24 on the DGI. LTG Duration 10 weeks One Impairment Gait Short Term Goal (STG) Amanda Pappas will ambulate without AD for 20 feet with SBA. STG Duration 4 weeks Mcfp Goal (LTG) Amanda will ambulate with SBA with SPC for 500 feet while navigating turns without LOB. LTG Duration 10 weeks Assessment Summary Assessment Amanda Pappas attends physical therapy wanting to work on ambulating without assistive device. She has been using a walker since her stroke a year ago. Prior conditions impacting this are her neuropathy and L foot changes. Could consider bracing options. Discussed with Amanda Pappas that most likely she will need to continue to use cane or trekking poles considering her neuropathy. Currently patient can ambulate , while unsteadily, in a straight line for 10-15' without AD, but this is not functional currently as she loses her balance with any turning motion. Pt to bring in cane and next visit and we can further assess cane training to support her goal of ambulating with the least restrictive assistive device. Physical Therapy Plan Frequency and Duration Frequency of Treatment 2x/Week Duration of treatment (weeks) 10 Plan of Care Start Date 12/16/22 Plan of Care End Date 02/24/23 Therapeutic Interventions Therapeutic Interventions Home Exercise Program,Manual Therapy,Neuromuscular Re- education,Self-Care/Home Management,Therapeutic Activities,Therapeutic Exercises Modalities Cold Pack/Ice Massage,Electric Stimulation,Hot Packs Next Visit Focus/Plan Next Note Type Treatment Note
--- NOTE | 2022-12-16 16:00 | PT.OPPOC ---
Physical, Occupational & Speech Therapy At [facility] Current Diagnoses Other abnormalities of gait and mobility (12/16/22) Other symptoms and signs involving the musculoskeletal system (12/16/22) Visit Care Team Role Provider Type Sid Bush MD Attending Provider Physician Family Provider Primary Care Provider Referring Provider Specialty: Internal Medicine Address: [address] [place] [address], [address], [facility] Email: [email or web address] Plan Of Care PT-OP-T Assessment and Plan Start: 12/15/22 15:43 Freq: Status: Active Protocol: Document 12/16/22 14:30 AMB (Rec: 12/17/22 09:03 AMB [id number]) Physical Therapy Assessment Rehab Potential Rehabilitation Potential Good Evaluation Complexity Number of Personal Factors/Comorbidities 3 or More Number of Body Systems Impaired 4 or More Clinical Presentation at Evaluation Stable Impairments Impairments Balance,Gait,ROM,Sensation, Strength Goals Two Impairment Balance Short Term Goal (STG) Amanda Pappas will balance with NBOS for 30 seconds wihtout LOB. STG Duration 4 weeks Roving Department End Finder Goal (LTG) Amanda Pappas will show improved dynamic balance by scoring at least 20/24 on the DGI. LTG Duration 10 weeks One Impairment Gait Short Term Goal (STG) Amanda Pappas will ambulate without AD for 20 feet with SBA. STG Duration 4 weeks Roving Department End Finder Goal (LTG) Amanda will ambulate with SBA with SPC for 500 feet while navigating turns without LOB. LTG Duration 10 weeks Assessment Summary Assessment Amanda Pappas attends physical therapy wanting to work on ambulating without assistive device. She has been using a walker since her stroke a year ago. Prior conditions impacting this are her neuropathy and L foot changes. Could consider bracing options. Discussed with Amanda Pappas that most likely she will need to continue to use cane or trekking poles considering her neuropathy. Currently patient can ambulate , while unsteadily, in a straight line for 10-15' without AD, but this is not functional currently as she loses her balance with any turning motion. Pt to bring in cane and next visit and we can further assess cane training to support her goal of ambulating with the least restrictive assistive device. Physical Therapy Plan Frequency and Duration Frequency of Treatment 2x/Week Duration of treatment (weeks) 10 Plan of Care Start Date 12/16/22 Plan of Care End Date 02/24/23 Therapeutic Interventions Therapeutic Interventions Home Exercise Program,Manual Therapy,Neuromuscular Re- education,Self-Care/Home Management,Therapeutic Activities,Therapeutic Exercises Modalities Cold Pack/Ice Massage,Electric Stimulation,Hot Packs Next Visit Focus/Plan Next Note Type Treatment Note Plan of Care Dates Plan of Care Start Date 12/16/22 Plan of Care End Date 02/24/23 Electronically Signed by: Marilee Mcneill, PT 12/17/22 2739 If you are in agreement with this Plan of Care, please return a signed and dated copy. I have reviewed this Plan of Care and certify that the skilled therapy services above are required to meet the patient?s needs. Physician Signature Date Printed Name and Credentials Clinical Instructor Signature Printed Name and Credentials
--- NOTE | 2022-12-23 16:20 | PT.OTN ---
Current Diagnoses Other abnormalities of gait and mobility (12/23/22) Other symptoms and signs involving the musculoskeletal system (12/23/22) Physical Therapy Treatment Note PT-OP-A Visit Information Start: 12/15/22 15:43 Freq: Status: Active Protocol: Document 12/23/22 13:50 AMB (Rec: 12/23/22 14:34 AMB [id number]) Out-Patient Physical Therapy Visit Information Visit Information Visit Type Treatment Note Visit Start Time 13:45 Visit Stop Time 14:30 Total Visit Minutes 45 Visit Number 2 PT-OP-B Current Condition Start: 12/15/22 15:43 Freq: Status: Active Protocol: Document 12/16/22 14:34 AMB (Rec: 12/16/22 15:12 AMB [id number]) Current Condition History of Current Condition Onset Date 1 year ago Current Complaints gait disturbance s/p CVA History of Current Condition 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 Uses a walker most of the time, especially in the community. Has a three pronged cane. Also walk on the the deck with her with hovering the hand over the railing. Does have neuropathy in hands and feet. Prior Treatments and Tests Previous PT worked on improving walking and gait Treatment Goals Patient/Caregiver Goals Pt goal is to walk without walker Personal Factors Other Personal Factors That May Effect Neuropathy significantly Therapy/Recovery limits sensation in bilateral feet PT-OP-C Subjective Start: 12/15/22 15:43 Freq: Status: Active Protocol: Document 12/16/22 15:45 AMB (Rec: 12/16/22 16:06 AMB [id number]) Patient Questionnaires ABC- Activity Specific Balance Confidence Scale ABC Score 40 ABC Functional Impairment 60 to <80% Impaired (Score 21- 40) PT-OP-D Balance Start: 12/15/22 15:43 Freq: Status: Active Protocol: Document 12/16/22 14:30 AMB (Rec: 12/16/22 16:11 AMB [id number]) OP-PT Balance Assessment Standing Balance Standing Balance Comments NBOS EO- fall; WBOS EC- fall Johnson Fall Scale Copyright Permission PT-OP-E Functional Tests Start: 12/15/22 15:43 Freq: Status: Active Protocol: Document 12/16/22 14:34 AMB (Rec: 12/16/22 15:12 AMB [id number]) Functional Tests Five Times Sit to Stand Test Score 8 seconds Comments no UE support PT-OP-G Mobility & Gait Start: 12/15/22 15:43 Freq: Status: Active Protocol: Document 12/16/22 14:30 AMB (Rec: 12/16/22 16:10 AMB [id number]) OP Gait Assessment Comments Gait Comments Pt ambulates with FWW with reduced ankle dorsiflexion bilaterally, worst on the L, compensates wiht increased knee flexion, tends to hold the left knee in a bent position even in stance. With ambulating without AD needs CGA and railing nearby, increases PAULO. Unstable when turning body or turning head. 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 PT-OP-M Strength Start: 12/15/22 15:43 Freq: Status: Active Protocol: Document 12/16/22 14:34 AMB (Rec: 12/16/22 15:12 AMB [id number]) Hip Strength Hip Manual Muscle Testing Left Flexion (L2) 4 Good Extension (S1) 4- Good- Abduction 4 Good Knee Strength Knee Manual Muscle Testing Left Flexion (S2) 4+ Good+ Extension (L3) 4 Good Ankle/Foot Strength Ankle and Foot Manual Muscle Testing Right Dorsiflexion (L4) 4 Good Plantarflexion (S1) 4 Good Left Dorsiflexion (L4) 3 Fair Plantarflexion (S1) 3 Fair PT-OP-Q Treatments Start: 12/15/22 15:43 Freq: Status: Active Protocol: Document 12/23/22 13:45 AMB (Rec: 12/23/22 16:15 AMB [id number]) Gait Training Gait Activity walker Distance/Duration 200'x2 Comments off the shelf AFO vs none. Pt with improved gait with AFO, would recommend custom given pt's significant neuropathy and significant bony changes. Faxed request to PCP. quad cane Distance/Duration 150'x2 Comments Pt needs CGA with quad cane, slows gait smaller step length . Reaches for wall with turns . Neuro Re-Education Treatment Other Activities weight shift Details Fwd/back Comments in stride stance, UE support on railing encouraged arm swing PT-OP-T Assessment and Plan Start: 12/15/22 15:43 Freq: Status: Active Protocol: Document 12/23/22 13:50 AMB (Rec: 12/23/22 14:34 AMB [id number]) Physical Therapy Assessment Goals Two Impairment Balance Short Term Goal (STG) Amanda Pappas will balance with NBOS for 30 seconds wihtout LOB. STG Duration 4 weeks Intermediate Goal (LTG) Amanda Pappas will show improved dynamic balance by scoring at least 20/24 on the DGI. LTG Duration 10 weeks One Impairment Gait Short Term Goal (STG) Amanda Pappas will ambulate without AD for 20 feet with SBA. STG Duration 4 weeks Intermediate Goal (LTG) Amanda will ambulate with SBA with SPC for 500 feet while navigating turns without LOB. LTG Duration 10 weeks Assessment Summary Assessment Amanda Pappas does have history of CVA, MRI from 2019 did show that. L sided weakness per her report has been present for a year, but pt does not present with an AFO. Gait quality improved significantly with AFO and pt states ankle feels more stable. Did fax PCP AFO request so pt can contact local orthotics company to discuss further. Physical Therapy Plan Frequency and Duration Frequency of Treatment 2x/Week Duration of treatment (weeks) 10 Plan of Care Start Date 12/16/22 Plan of Care End Date 02/24/23 Therapeutic Interventions Therapeutic Interventions Home Exercise Program,Manual Therapy,Neuromuscular Re- education,Self-Care/Home Management,Therapeutic Activities,Therapeutic Exercises Modalities Cold Pack/Ice Massage,Electric Stimulation,Hot Packs Next Visit Focus/Plan Next Note Type Treatment Note
--- NOTE | 2022-12-26 14:30 | PT.OTN ---
Current Diagnoses Other abnormalities of gait and mobility (12/26/22) Other symptoms and signs involving the musculoskeletal system (12/26/22) Physical Therapy Treatment Note PT-OP-A Visit Information Start: 12/15/22 15:43 Freq: Status: Active Protocol: Document 12/26/22 13:52 SP (Rec: 12/26/22 14:32 SP [id number]) Out-Patient Physical Therapy Visit Information Visit Information Visit Type Treatment Note Visit Start Time 13:52 Visit Stop Time 14:30 Total Visit Minutes 38 Visit Number 3 Number of PHARMACIST MANAGER Visits 1 PT-OP-B Current Condition Start: 12/15/22 15:43 Freq: Status: Active Protocol: Document 12/16/22 14:34 AMB (Rec: 12/16/22 15:12 AMB [id number]) Current Condition History of Current Condition Onset Date 1 year ago Current Complaints gait disturbance s/p CVA History of Current Condition 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 Uses a walker most of the time, especially in the community. Has a three pronged cane. Also walk on the the deck with her with hovering the hand over the railing. Does have neuropathy in hands and feet. Prior Treatments and Tests Previous PT worked on improving walking and gait Treatment Goals Patient/Caregiver Goals Pt goal is to walk without walker Personal Factors Other Personal Factors That May Effect Neuropathy significantly Therapy/Recovery limits sensation in bilateral feet PT-OP-C Subjective Start: 12/15/22 15:43 Freq: Status: Active Protocol: Document 12/26/22 13:52 SP (Rec: 12/26/22 14:32 SP [id number]) OP-PT Subjective Patient Comments Patient Comments Pt reports have been doing lap of walking on deck with QC. Is getting an AFO for R ankle, Dr castro put in order in past. PT-OP-D Balance Start: 12/15/22 15:43 Freq: Status: Active Protocol: Document 12/16/22 14:30 AMB (Rec: 12/16/22 16:11 AMB [id number]) OP-PT Balance Assessment Standing Balance Standing Balance Comments NBOS EO- fall; WBOS EC- fall Johnson Fall Scale Copyright Permission PT-OP-E Functional Tests Start: 12/15/22 15:43 Freq: Status: Active Protocol: Document 12/16/22 14:34 AMB (Rec: 12/16/22 15:12 AMB [id number]) Functional Tests Five Times Sit to Stand Test Score 8 seconds Comments no UE support PT-OP-G Mobility & Gait Start: 12/15/22 15:43 Freq: Status: Active Protocol: Document 12/16/22 14:30 AMB (Rec: 12/16/22 16:10 AMB [id number]) OP Gait Assessment Comments Gait Comments Pt ambulates with FWW with reduced ankle dorsiflexion bilaterally, worst on the L, compensates wiht increased knee flexion, tends to hold the left knee in a bent position even in stance. With ambulating without AD needs CGA and railing nearby, increases PAULO. Unstable when turning body or turning head. 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 PT-OP-M Strength Start: 12/15/22 15:43 Freq: Status: Active Protocol: Document 12/16/22 14:34 AMB (Rec: 12/16/22 15:12 AMB [id number]) Hip Strength Hip Manual Muscle Testing Left Flexion (L2) 4 Good Extension (S1) 4- Good- Abduction 4 Good Knee Strength Knee Manual Muscle Testing Left Flexion (S2) 4+ Good+ Extension (L3) 4 Good Ankle/Foot Strength Ankle and Foot Manual Muscle Testing Right Dorsiflexion (L4) 4 Good Plantarflexion (S1) 4 Good Left Dorsiflexion (L4) 3 Fair Plantarflexion (S1) 3 Fair PT-OP-Q Treatments Start: 12/15/22 15:43 Freq: Status: Active Protocol: Document 12/26/22 13:52 SP (Rec: 12/26/22 14:32 SP [id number]) Therapeutic Exercises Sitting Exercises Sit to stands Sitting Exercise Name initiated HEP for safety Reps/Minutes 2x5 Comments cued scoot forward, hip hinge asc/desc keep feet on floor full sit Standing Exercises side stepping Standing Exercise Name initiated in PT Equipment Used hands hover rail Reps/Minutes 15 ft x3 laps Comments cued smaller stride, no scuffing, soft/quiet steps Gait Training Gait Activity stairs Description receiprocal stepping Device Used B HR Level of Assistance S Distance/Duration 4 steps x4 sets Treatment Focus softer stepping, flud movement , decrease rigidity Comments cued softer stepping allowed decrease rigid stepping with cues walker Device Used FWW Level of Assistance S Distance/Duration 80 ft beginning, end tx Comments Dr ivshal DELGADO. Pt decreased rigidity stepping with cues taller posture, softer stepping, heel toe, significant change and pt felt difference leaving. quad cane Distance/Duration 20 ft x6 laps Treatment Focus cued 3> 2 ptgait, sequencing, heel toe LLE Comments Pt needs CGA with quad cane, slows gait smaller step length . improved smallsequencing step during turns, no LOB/ deviations. L foot tends to scuff floor Neuro Re-Education Treatment Balance Activities stagger stance Details stationary stance Equipment near rail Comments WB evenly BLE, HTs challenge more steady LLE forward. Other Activities weight shift Details Fwd/back rocking then UE swing with Reps/Duration x15 rep each side Comments in stride stance, opp UE support on railing encouraged arm swing for stability PT-OP-T Assessment and Plan Start: 12/15/22 15:43 Freq: Status: Active Protocol: Document 12/26/22 13:52 SP (Rec: 12/26/22 14:32 SP [id number]) Physical Therapy Assessment Goals Two Impairment Balance Short Term Goal (STG) Amanda Pappas will balance with NBOS for 30 seconds wihtout LOB. STG Duration 4 weeks Jail Goal (LTG) Amanda Pappas will show improved dynamic balance by scoring at least 20/24 on the DGI. LTG Duration 10 weeks One Impairment Gait Short Term Goal (STG) Amanda Pappas will ambulate without AD for 20 feet with SBA. STG Duration 4 weeks Jail Goal (LTG) Amanda will ambulate with SBA with SPC for 500 feet while navigating turns without LOB. LTG Duration 10 weeks Assessment Summary Assessment Pt improved soft lateral steps post cuing, not needing use rail support, less scuffing. Pt improved softer LE advancement stairs,gait use of 4WW and QC with cuing. Pt improved gait 3>2pt gait with occasional cuing for sequencing, more fluid movement and R UE arm swing as distance gait progresses. Physical Therapy Plan Frequency and Duration Frequency of Treatment 2x/Week Duration of treatment (weeks) 10 Plan of Care Start Date 12/16/22 Plan of Care End Date 02/24/23 Therapeutic Interventions Therapeutic Interventions Home Exercise Program,Manual Therapy,Neuromuscular Re- education,Self-Care/Home Management,Therapeutic Activities,Therapeutic Exercises Modalities Cold Pack/Ice Massage,Electric Stimulation,Hot Packs Next Visit Focus/Plan Next Note Type Treatment Note Next Visit Plan Continue 2pt gait sequencing w / QC, progress receiprocal decreased ataxic stepping. Continue STS with slow asc/ desc form with feet firm on floor.
--- NOTE | 2022-12-30 14:30 | PT.OTN ---
Current Diagnoses Other abnormalities of gait and mobility (12/30/22) Other symptoms and signs involving the musculoskeletal system (12/30/22) Physical Therapy Treatment Note PT-OP-A Visit Information Start: 12/15/22 15:43 Freq: Status: Active Protocol: Document 12/30/22 13:51 NBM (Rec: 12/30/22 14:30 NBM [id number]) Out-Patient Physical Therapy Visit Information Visit Information Visit Type Treatment Note Visit Start Time 13:50 Visit Stop Time 14:28 Total Visit Minutes 38 Visit Number 4 Number of WELDING TECHNICIAN Visits 2 PT-OP-B Current Condition Start: 12/15/22 15:43 Freq: Status: Active Protocol: Document 12/16/22 14:34 AMB (Rec: 12/16/22 15:12 AMB [id number]) Current Condition History of Current Condition Onset Date 1 year ago Current Complaints gait disturbance s/p CVA History of Current Condition 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 Uses a walker most of the time, especially in the community. Has a three pronged cane. Also walk on the the deck with her with hovering the hand over the railing. Does have neuropathy in hands and feet. Prior Treatments and Tests Previous PT worked on improving walking and gait Treatment Goals Patient/Caregiver Goals Pt goal is to walk without walker Personal Factors Other Personal Factors That May Effect Neuropathy significantly Therapy/Recovery limits sensation in bilateral feet PT-OP-C Subjective Start: 12/15/22 15:43 Freq: Status: Active Protocol: Document 12/30/22 13:51 NBM (Rec: 12/30/22 14:30 NBM [id number]) OP-PT Subjective Patient Comments Patient Comments Pt reports she has fitting tomorrow for AFO for R ankle. She arrives with orthotic shoes. She wasn't able to walk the last few days on deck because of the weather. PT-OP-D Balance Start: 12/15/22 15:43 Freq: Status: Active Protocol: Document 12/16/22 14:30 AMB (Rec: 12/16/22 16:11 AMB [id number]) OP-PT Balance Assessment Standing Balance Standing Balance Comments NBOS EO- fall; WBOS EC- fall Johnson Fall Scale Copyright Permission PT-OP-E Functional Tests Start: 12/15/22 15:43 Freq: Status: Active Protocol: Document 12/16/22 14:34 AMB (Rec: 12/16/22 15:12 AMB [id number]) Functional Tests Five Times Sit to Stand Test Score 8 seconds Comments no UE support PT-OP-G Mobility & Gait Start: 12/15/22 15:43 Freq: Status: Active Protocol: Document 12/16/22 14:30 AMB (Rec: 12/16/22 16:10 AMB [id number]) OP Gait Assessment Comments Gait Comments Pt ambulates with FWW with reduced ankle dorsiflexion bilaterally, worst on the L, compensates wiht increased knee flexion, tends to hold the left knee in a bent position even in stance. With ambulating without AD needs CGA and railing nearby, increases PAULO. Unstable when turning body or turning head. 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 PT-OP-M Strength Start: 12/15/22 15:43 Freq: Status: Active Protocol: Document 12/16/22 14:34 AMB (Rec: 12/16/22 15:12 AMB [id number]) Hip Strength Hip Manual Muscle Testing Left Flexion (L2) 4 Good Extension (S1) 4- Good- Abduction 4 Good Knee Strength Knee Manual Muscle Testing Left Flexion (S2) 4+ Good+ Extension (L3) 4 Good Ankle/Foot Strength Ankle and Foot Manual Muscle Testing Right Dorsiflexion (L4) 4 Good Plantarflexion (S1) 4 Good Left Dorsiflexion (L4) 3 Fair Plantarflexion (S1) 3 Fair PT-OP-Q Treatments Start: 12/15/22 15:43 Freq: Status: Active Protocol: Document 12/30/22 13:51 NBM (Rec: 12/30/22 14:30 NBM [id number]) Therapeutic Exercises Sitting Exercises Sit to stands Sitting Exercise Name initiated HEP for safety Reps/Minutes 2x5 Comments cued scoot forward, hip hinge asc/desc keep feet on floor full sit Standing Exercises side stepping Standing Exercise Name initiated in PT Equipment Used hands hover rail Reps/Minutes 15ft x 2 laps Comments cued full weightshift and slower pacing, toes fwd Gait Training Gait Activity // bars Description no AD Level of Assistance CGA to SBA w/ Kristofer [employer] Surface carpet Distance/Duration 4 laps fwd Treatment Focus stride length, heel toe, push off Comments improves heel/toe and push-off stairs Description receiprocal stepping Device Used B HR Level of Assistance S Distance/Duration 4 steps x4 sets Treatment Focus softer stepping, flud movement , decrease rigidity Comments cued softer stepping allowed decrease rigid stepping with cues walker Device Used FWW Level of Assistance S Distance/Duration 80 ft beginning, end tx Comments Dr ordering AFO. Pt decreased rigidity stepping with cues taller posture, softer stepping, heel toe. Improved stride length kristofer after HS stretch end of session. quad cane Distance/Duration 20 ft x6 laps Treatment Focus cued 3> 2 ptgait, sequencing, heel toe LLE Comments Pt needs CGA with quad cane, slows gait smaller step length . improved smallsequencing step during turns, no LOB/ deviations. L foot tends to scuff floor Neuro Re-Education Treatment Balance Activities stagger stance Details stationary stance Equipment near rail Comments WB evenly BLE. Other Activities weight shift Details Fwd/back rocking then UE swing with Reps/Duration x15 rep each side Comments in stride stance, opp UE support on railing encouraged arm swing for stability PT-OP-T Assessment and Plan Start: 12/15/22 15:43 Freq: Status: Active Protocol: Document 12/30/22 13:51 NB (Rec: 12/30/22 14:30 [facility] [id number]) Physical Therapy Assessment Goals Two Impairment Balance Short Term Goal (STG) Amanda Pappas will balance with NBOS for 30 seconds wihtout LOB. STG Duration 4 weeks Application Infrastructure Engineer Goal (LTG) Amanda Pappas will show improved dynamic balance by scoring at least 20/24 on the DGI. LTG Duration 10 weeks One Impairment Gait Short Term Goal (STG) Amanda Pappas will ambulate without AD for 20 feet with SBA. STG Duration 4 weeks Application Infrastructure Engineer Goal (LTG) Amanda will ambulate with SBA with SPC for 500 feet while navigating turns without LOB. LTG Duration 10 weeks Assessment Summary Assessment Pt demonstrates improved sequencing progressing from 3- pt gait to 2-pt gait w/ quad cane in RUE, and improved heel strike into toe-off in parallel bars. She has improved stride length kristofer after HS stretch end of session. Pt requires consistent cues for RLE excessive external rotation throughout treatment session. She requires two safety cues with transitions w/ FWW to back completely up to chair before sitting and not to use both hands on FWW w/ standing - pt is reminded she is able to stand without UE support. She reports positive feeback response to seated hamstring stretch. Physical Therapy Plan Frequency and Duration Frequency of Treatment 2x/Week Duration of treatment (weeks) 10 Plan of Care Start Date 12/16/22 Plan of Care End Date 02/24/23 Therapeutic Interventions Therapeutic Interventions Home Exercise Program,Manual Therapy,Neuromuscular Re- education,Self-Care/Home Management,Therapeutic Activities,Therapeutic Exercises Modalities Cold Pack/Ice Massage,Electric Stimulation,Hot Packs Next Visit Focus/Plan Next Note Type Treatment Note Next Visit Plan Continue 2pt gait sequencing w / QC, progress receiprocal decreased ataxic stepping. Continue STS with slow asc/ desc form with feet firm on floor.
--- NOTE | 2023-01-02 14:30 | PT.OTN ---
Current Diagnoses Other abnormalities of gait and mobility (01/02/23) Other symptoms and signs involving the musculoskeletal system (01/02/23) Physical Therapy Treatment Note PT-OP-A Visit Information Start: 12/15/22 15:43 Freq: Status: Active Protocol: Document 01/02/23 13:49 SP (Rec: 01/02/23 14:31 SP [id number]) Out-Patient Physical Therapy Visit Information Visit Information Visit Type Treatment Note Visit Start Time 13:49 Visit Stop Time 14:30 Total Visit Minutes 41 Visit Number 5 Number of LABOR AND DELIVERY NURSE Visits 3 PT-OP-B Current Condition Start: 12/15/22 15:43 Freq: Status: Active Protocol: Document 12/16/22 14:34 AMB (Rec: 12/16/22 15:12 AMB [id number]) Current Condition History of Current Condition Onset Date 1 year ago Current Complaints gait disturbance s/p CVA History of Current Condition 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 Uses a walker most of the time, especially in the community. Has a three pronged cane. Also walk on the the deck with her with hovering the hand over the railing. Does have neuropathy in hands and feet. Prior Treatments and Tests Previous PT worked on improving walking and gait Treatment Goals Patient/Caregiver Goals Pt goal is to walk without walker Personal Factors Other Personal Factors That May Effect Neuropathy significantly Therapy/Recovery limits sensation in bilateral feet PT-OP-C Subjective Start: 12/15/22 15:43 Freq: Status: Active Protocol: Document 01/02/23 13:49 SP (Rec: 01/02/23 14:31 SP [id number]) OP-PT Subjective Patient Comments Patient Comments Pt reports didn't get to do walking on deck yesteday with weather. reminds her STS execise. She saw deployment manager and AFO is ordered, didn't have small/medium needed. PT-OP-D Balance Start: 12/15/22 15:43 Freq: Status: Active Protocol: Document 12/16/22 14:30 AMB (Rec: 12/16/22 16:11 AMB [id number]) OP-PT Balance Assessment Standing Balance Standing Balance Comments NBOS EO- fall; WBOS EC- fall Johnson Fall Scale Copyright Permission PT-OP-E Functional Tests Start: 12/15/22 15:43 Freq: Status: Active Protocol: Document 12/16/22 14:34 AMB (Rec: 12/16/22 15:12 AMB [id number]) Functional Tests Five Times Sit to Stand Test Score 8 seconds Comments no UE support PT-OP-G Mobility & Gait Start: 12/15/22 15:43 Freq: Status: Active Protocol: Document 12/16/22 14:30 AMB (Rec: 12/16/22 16:10 AMB [id number]) OP Gait Assessment Comments Gait Comments Pt ambulates with FWW with reduced ankle dorsiflexion bilaterally, worst on the L, compensates wiht increased knee flexion, tends to hold the left knee in a bent position even in stance. With ambulating without AD needs CGA and railing nearby, increases PAULO. Unstable when turning body or turning head. 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 PT-OP-M Strength Start: 12/15/22 15:43 Freq: Status: Active Protocol: Document 12/16/22 14:34 AMB (Rec: 12/16/22 15:12 AMB [id number]) Hip Strength Hip Manual Muscle Testing Left Flexion (L2) 4 Good Extension (S1) 4- Good- Abduction 4 Good Knee Strength Knee Manual Muscle Testing Left Flexion (S2) 4+ Good+ Extension (L3) 4 Good Ankle/Foot Strength Ankle and Foot Manual Muscle Testing Right Dorsiflexion (L4) 4 Good Plantarflexion (S1) 4 Good Left Dorsiflexion (L4) 3 Fair Plantarflexion (S1) 3 Fair PT-OP-Q Treatments Start: 12/15/22 15:43 Freq: Status: Active Protocol: Document 01/02/23 13:49 SP (Rec: 01/02/23 14:31 SP [id number]) Therapeutic Exercises Sitting Exercises hamstring stretch Side bilateral Reps/Minutes 3 x 30s ea Comments L tighter than R. postive feedback response Sit to stands Sitting Exercise Name HEP review Resistance CGA on foam, S floor Equipment Used mesh chair floor, blue cushion Reps/Minutes 5 reps each, 10 total Comments cue x1 slow hip hinge descend, then good self corrections Standing Exercises TKE Standing Exercise Name in PT Side bilateral Resistance Tb #2 Reps/Minutes 3 SH x8 reps each LE Comments cue x1 during step over back Standing Exercise Name in PT Equipment Used step over qc laying on floor, rail support Reps/Minutes 8 reps each LE Comments cued extension advanced LE, WB onto LE Gait Training Gait Activity back stepping Device Used rail Level of Assistance CGA/ SBA Surface rail, no rail Distance/Duration 15 ft x4 laps Treatment Focus knee extension Comments cued taller posture, equal step length, //feet forward. decrease stride no rail support. walker Device Used FWW Level of Assistance S Distance/Duration 40 ft end tx Comments Pt decreased rigidity stepping with cues taller posture, softer stepping, heel toe. Improved stride length brii after HS stretch end of session. quad cane Distance/Duration 20 ft x4 laps Treatment Focus 2 ptgait, sequencing, knee extension into heel strike, heel toe Comments Pt needs CGA-Min A retro lean LOB x2 with quad cane during RLE advancement. Improved small sequencing step during turna. PT-OP-T Assessment and Plan Start: 12/15/22 15:43 Freq: Status: Active Protocol: Document 01/02/23 13:49 SP (Rec: 01/02/23 14:31 SP [id number]) Physical Therapy Assessment Goals Two Impairment Balance Short Term Goal (STG) Amanda Pappas will balance with NBOS for 30 seconds wihtout LOB. STG Duration 4 weeks Halfway Goal (LTG) Amanda Pappas will show improved dynamic balance by scoring at least 20/24 on the DGI. LTG Duration 10 weeks One Impairment Gait Short Term Goal (STG) Amanda Pappas will ambulate without AD for 20 feet with SBA. STG Duration 4 weeks Halfway Goal (LTG) Amanda will ambulate with SBA with SPC for 500 feet while navigating turns without LOB. LTG Duration 10 weeks Assessment Summary Assessment Pt improved R better than L knee extension forward to heel strike and wt shifiting into advanced LE post ther ex. Pt improved wt shift during STS and self corrections sitting over uneven surface. Physical Therapy Plan Frequency and Duration Frequency of Treatment 2x/Week Duration of treatment (weeks) 10 Plan of Care Start Date 12/16/22 Plan of Care End Date 02/24/23 Therapeutic Interventions Therapeutic Interventions Home Exercise Program,Manual Therapy,Neuromuscular Re- education,Self-Care/Home Management,Therapeutic Activities,Therapeutic Exercises Modalities Cold Pack/Ice Massage,Electric Stimulation,Hot Packs Next Visit Focus/Plan Next Note Type Treatment Note Next Visit Plan Continue 2pt gait sequencing w / QC, progress receiprocal decreased ataxic stepping. Continue STS with slow asc/ desc form with feet firm on floor.
--- NOTE | 2023-01-05 15:53 | PT.OTN ---
Current Diagnoses Other abnormalities of gait and mobility (01/05/23) Other symptoms and signs involving the musculoskeletal system (01/05/23) Physical Therapy Treatment Note PT-OP-A Visit Information Start: 12/15/22 15:43 Freq: Status: Active Protocol: Document 01/05/23 14:08 AMB (Rec: 01/05/23 14:33 AMB [id number]) Out-Patient Physical Therapy Visit Information Visit Information Visit Type Treatment Note Visit Start Time 13:50 Visit Stop Time 14:30 Total Visit Minutes 40 Visit Number 6 Number of BICYCLE REPAIRMAN Visits 0 PT-OP-B Current Condition Start: 12/15/22 15:43 Freq: Status: Active Protocol: Document 12/16/22 14:34 AMB (Rec: 12/16/22 15:12 AMB [id number]) Current Condition History of Current Condition Onset Date 1 year ago Current Complaints gait disturbance s/p CVA History of Current Condition 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 Uses a walker most of the time, especially in the community. Has a three pronged cane. Also walk on the the deck with her with hovering the hand over the railing. Does have neuropathy in hands and feet. Prior Treatments and Tests Previous PT worked on improving walking and gait Treatment Goals Patient/Caregiver Goals Pt goal is to walk without walker Personal Factors Other Personal Factors That May Effect Neuropathy significantly Therapy/Recovery limits sensation in bilateral feet PT-OP-C Subjective Start: 12/15/22 15:43 Freq: Status: Active Protocol: Document 01/05/23 14:08 AMB (Rec: 01/05/23 14:33 AMB [id number]) OP-PT Subjective Patient Comments Patient Comments Pt reports has been walking on the deck. No soreness. PT-OP-D Balance Start: 12/15/22 15:43 Freq: Status: Active Protocol: Document 12/16/22 14:30 AMB (Rec: 12/16/22 16:11 AMB [id number]) OP-PT Balance Assessment Standing Balance Standing Balance Comments NBOS EO- fall; WBOS EC- fall Johnson Fall Scale Copyright Permission PT-OP-E Functional Tests Start: 12/15/22 15:43 Freq: Status: Active Protocol: Document 12/16/22 14:34 AMB (Rec: 12/16/22 15:12 AMB [id number]) Functional Tests Five Times Sit to Stand Test Score 8 seconds Comments no UE support PT-OP-G Mobility & Gait Start: 12/15/22 15:43 Freq: Status: Active Protocol: Document 12/16/22 14:30 AMB (Rec: 12/16/22 16:10 AMB [id number]) OP Gait Assessment Comments Gait Comments Pt ambulates with FWW with reduced ankle dorsiflexion bilaterally, worst on the L, compensates wiht increased knee flexion, tends to hold the left knee in a bent position even in stance. With ambulating without AD needs CGA and railing nearby, increases PAULO. Unstable when turning body or turning head. 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 PT-OP-M Strength Start: 12/15/22 15:43 Freq: Status: Active Protocol: Document 12/16/22 14:34 AMB (Rec: 12/16/22 15:12 AMB [id number]) Hip Strength Hip Manual Muscle Testing Left Flexion (L2) 4 Good Extension (S1) 4- Good- Abduction 4 Good Knee Strength Knee Manual Muscle Testing Left Flexion (S2) 4+ Good+ Extension (L3) 4 Good Ankle/Foot Strength Ankle and Foot Manual Muscle Testing Right Dorsiflexion (L4) 4 Good Plantarflexion (S1) 4 Good Left Dorsiflexion (L4) 3 Fair Plantarflexion (S1) 3 Fair PT-OP-Q Treatments Start: 12/15/22 15:43 Freq: Status: Active Protocol: Document 01/05/23 13:45 AMB (Rec: 01/05/23 15:50 AMB [id number]) Therapeutic Exercises Sitting Exercises Sit to stands Sitting Exercise Name HEP review Resistance CGA on foam, S floor Equipment Used mesh chair floor, blue cushion Reps/Minutes 5 reps each, 10 total Comments cue x1 slow hip hinge descend, then good self corrections Standing Exercises ankle/toe Standing Exercise Name PF/DF rock in standing with railing Reps/Minutes 2x10 Comments fatigues quickly mini lunge Standing Exercise Name with rail- challenigng Reps/Minutes 2x10 november Standing Exercise Name focus on balance Reps/Minutes 2x10 calf stretch Reps/Minutes 30x2 Gait Training Gait Activity back stepping Device Used rail Level of Assistance CGA/ SBA Surface rail, no rail Distance/Duration 15 ft x4 laps Treatment Focus knee extension Comments cued taller posture, equal step length, //feet forward. decrease stride no rail support. // bars Description no AD Level of Assistance CGA to SBA w/ Kristofer OFFICE SUPERVISOR Surface carpet Distance/Duration 4 laps fwd Treatment Focus stride length, heel toe, push off Comments fwd and sidestepping stairs Description receiprocal stepping Device Used B HR Level of Assistance S Distance/Duration 4 steps x4 sets Treatment Focus softer stepping, flud movement , Comments cued softer stepping allowed decrease rigid stepping with cues quad cane Distance/Duration 20 ft x4 laps Treatment Focus 2 ptgait, sequencing, knee extension into heel strike, heel toe Comments Worked on step through gait patterning which was difficult PT-OP-T Assessment and Plan Start: 12/15/22 15:43 Freq: Status: Active Protocol: Document 01/05/23 14:08 AMB (Rec: 01/05/23 14:33 AMB [id number]) Physical Therapy Assessment Goals Two Impairment Balance Short Term Goal (STG) Amanda Pappas will balance with NBOS for 30 seconds wihtout LOB. STG Duration 4 weeks Finance Attorney Goal (LTG) Amanda Pappas will show improved dynamic balance by scoring at least 20/24 on the DGI. LTG Duration 10 weeks One Impairment Gait Short Term Goal (STG) Amanda Pappas will ambulate without AD for 20 feet with SBA. STG Duration 4 weeks Finance Attorney Goal (LTG) mAanda will ambulate with SBA with SPC for 500 feet while navigating turns without LOB. LTG Duration 10 weeks Assessment Summary Assessment Pt fatigues with ankle exercises quickly. Gait is improving. Physical Therapy Plan Frequency and Duration Frequency of Treatment 2x/Week Duration of treatment (weeks) 10 Plan of Care Start Date 12/16/22 Plan of Care End Date 02/24/23 Therapeutic Interventions Therapeutic Interventions Home Exercise Program,Manual Therapy,Neuromuscular Re- education,Self-Care/Home Management,Therapeutic Activities,Therapeutic Exercises Modalities Cold Pack/Ice Massage,Electric Stimulation,Hot Packs Next Visit Focus/Plan Next Note Type Treatment Note Next Visit Plan Continue 2pt gait sequencing w / QC, progress receiprocal decreased ataxic stepping. Continue STS with slow asc/ desc form with feet firm on floor.
--- NOTE | 2023-01-09 16:08 | PT.OTN ---
Current Diagnoses Other abnormalities of gait and mobility (01/09/23) Other symptoms and signs involving the musculoskeletal system (01/09/23) Physical Therapy Treatment Note PT-OP-A Visit Information Start: 12/15/22 15:43 Freq: Status: Active Protocol: Document 01/09/23 13:51 AMB (Rec: 01/09/23 14:30 AMB [id number]) Out-Patient Physical Therapy Visit Information Visit Information Visit Type Treatment Note Visit Start Time 13:50 Visit Stop Time 14:30 Total Visit Minutes 40 Visit Number 7 PT-OP-B Current Condition Start: 12/15/22 15:43 Freq: Status: Active Protocol: Document 12/16/22 14:34 AMB (Rec: 12/16/22 15:12 AMB [id number]) Current Condition History of Current Condition Onset Date 1 year ago Current Complaints gait disturbance s/p CVA History of Current Condition 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 Uses a walker most of the time, especially in the community. Has a three pronged cane. Also walk on the the deck with her with hovering the hand over the railing. Does have neuropathy in hands and feet. Prior Treatments and Tests Previous PT worked on improving walking and gait Treatment Goals Patient/Caregiver Goals Pt goal is to walk without walker Personal Factors Other Personal Factors That May Effect Neuropathy significantly Therapy/Recovery limits sensation in bilateral feet PT-OP-C Subjective Start: 12/15/22 15:43 Freq: Status: Active Protocol: Document 01/09/23 13:51 AMB (Rec: 01/09/23 14:30 AMB [id number]) OP-PT Subjective Patient Comments Patient Comments Not too much walking due to the weather. PT-OP-D Balance Start: 12/15/22 15:43 Freq: Status: Active Protocol: Document 12/16/22 14:30 AMB (Rec: 12/16/22 16:11 AMB [id number]) OP-PT Balance Assessment Standing Balance Standing Balance Comments NBOS EO- fall; WBOS EC- fall Johnson Fall Scale Copyright Permission PT-OP-E Functional Tests Start: 12/15/22 15:43 Freq: Status: Active Protocol: Document 12/16/22 14:34 AMB (Rec: 12/16/22 15:12 AMB [id number]) Functional Tests Five Times Sit to Stand Test Score 8 seconds Comments no UE support PT-OP-G Mobility & Gait Start: 12/15/22 15:43 Freq: Status: Active Protocol: Document 12/16/22 14:30 AMB (Rec: 12/16/22 16:10 AMB [id number]) OP Gait Assessment Comments Gait Comments Pt ambulates with FWW with reduced ankle dorsiflexion bilaterally, worst on the L, compensates wiht increased knee flexion, tends to hold the left knee in a bent position even in stance. With ambulating without AD needs CGA and railing nearby, increases PAULO. Unstable when turning body or turning head. 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 PT-OP-M Strength Start: 12/15/22 15:43 Freq: Status: Active Protocol: Document 12/16/22 14:34 AMB (Rec: 12/16/22 15:12 AMB [id number]) Hip Strength Hip Manual Muscle Testing Left Flexion (L2) 4 Good Extension (S1) 4- Good- Abduction 4 Good Knee Strength Knee Manual Muscle Testing Left Flexion (S2) 4+ Good+ Extension (L3) 4 Good Ankle/Foot Strength Ankle and Foot Manual Muscle Testing Right Dorsiflexion (L4) 4 Good Plantarflexion (S1) 4 Good Left Dorsiflexion (L4) 3 Fair Plantarflexion (S1) 3 Fair PT-OP-Q Treatments Start: 12/15/22 15:43 Freq: Status: Active Protocol: Document 01/09/23 13:51 AMB (Rec: 01/09/23 14:30 AMB [id number]) Therapeutic Exercises Sitting Exercises Sit to stands Sitting Exercise Name HEP review Resistance CGA on foam, S floor Equipment Used mesh chair floor, blue cushion Reps/Minutes 5 reps each, 10 total Comments cue x1 slow hip hinge descend, then good self corrections Standing Exercises ankle/toe Standing Exercise Name PF/DF rock in standing with railing Reps/Minutes 2x10 Comments fatigues quickly mini lunge Standing Exercise Name with rail- challenigng Reps/Minutes 2x10 side stepping Standing Exercise Name initiated in PT Equipment Used hands hover rail Reps/Minutes 15ft x 2 laps Comments cued full weightshift and slower pacing, toes fwd Gait Training Gait Activity back stepping Device Used rail Level of Assistance CGA/ SBA Surface rail, no rail Distance/Duration 15 ft x4 laps Treatment Focus knee extension Comments cued taller posture, equal step length, //feet forward. decrease stride no rail support. // bars Description no AD Level of Assistance CGA to SBA w/ Kristofer CAFE OPERATOR Surface carpet Distance/Duration 4 laps fwd Treatment Focus stride length, heel toe, push off Comments fwd and sidestepping quad cane Distance/Duration 20 ft x4 laps Treatment Focus 2 ptgait, sequencing, knee extension into heel strike, heel toe Comments Worked on step through gait patterning which was difficult Neuro Re-Education Treatment Balance Activities stagger stance Details stationary stance Equipment near rail Comments WB evenly BLE. Other Activities weight shift Details Fwd/back rocking then UE swing with Reps/Duration x15 rep each side Comments in stride stance, opp UE support on railing encouraged arm swing for stability PT-OP-T Assessment and Plan Start: 12/15/22 15:43 Freq: Status: Active Protocol: Document 01/09/23 13:51 AMB (Rec: 01/09/23 14:30 AMB [id number]) Physical Therapy Assessment Goals Two Impairment Balance Short Term Goal (STG) Amanda Pappas will balance with NBOS for 30 seconds wihtout LOB. STG Duration 4 weeks Local Truck Driver Goal (LTG) Amanda Pappas will show improved dynamic balance by scoring at least 20/24 on the DGI. LTG Duration 10 weeks One Impairment Gait Short Term Goal (STG) Amanda Pappas will ambulate without AD for 20 feet with SBA. STG Duration 4 weeks Local Truck Driver Goal (LTG) Amanda will ambulate with SBA with SPC for 500 feet while navigating turns without LOB. LTG Duration 10 weeks Assessment Summary Assessment Pt's gait is better with AFO, still waiting to get hers. Pt 's goal of ambulating without UE support with AFO would be unsafe at this point with more dynamic gait, like reaching for chair, changing directions . Physical Therapy Plan Frequency and Duration Frequency of Treatment 2x/Week Duration of treatment (weeks) 10 Plan of Care Start Date 12/16/22 Plan of Care End Date 02/24/23 Therapeutic Interventions Therapeutic Interventions Home Exercise Program,Manual Therapy,Neuromuscular Re- education,Self-Care/Home Management,Therapeutic Activities,Therapeutic Exercises Modalities Cold Pack/Ice Massage,Electric Stimulation,Hot Packs Next Visit Focus/Plan Next Note Type Treatment Note Next Visit Plan Continue 2pt gait sequencing w / QC, progress receiprocal decreased ataxic stepping. Continue STS with slow asc/ desc form with feet firm on floor.
--- NOTE | 2023-01-12 10:30 | PT.OTN ---
Current Diagnoses Other abnormalities of gait and mobility (01/12/23) Other symptoms and signs involving the musculoskeletal system (01/12/23) Physical Therapy Treatment Note PT-OP-A Visit Information Start: 12/15/22 15:43 Freq: Status: Active Protocol: Document 01/12/23 09:51 SP (Rec: 01/12/23 10:34 SP [id number]) Out-Patient Physical Therapy Visit Information Visit Information Visit Type Treatment Note Visit Note PATSY White assisted instruction ther ex and balance with pt under direction and instruction of RESOURCE FORESTER Yohan throughout tx. 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 Uses a walker most of the time, especially in the community. Has a three pronged cane. Also walk on the the deck with her with hovering the hand over the railing. Does have neuropathy in hands and feet. Prior Treatments and Tests Previous PT worked on improving walking and gait Treatment Goals Patient/Caregiver Goals Pt goal is to walk without walker Personal Factors Other Personal Factors That May Effect Neuropathy significantly Therapy/Recovery limits sensation in bilateral feet PT-OP-C Subjective Start: 12/15/22 15:43 Freq: Status: Active Protocol: Document 01/12/23 09:51 SP (Rec: 01/12/23 10:34 SP [id number]) OP-PT Subjective Patient Comments Patient Comments Pt reported with rainy weather didn't get to do much walking quality outside. PT-OP-D Balance Start: 12/15/22 15:43 Freq: Status: Active Protocol: Document 12/16/22 14:30 AMB (Rec: 12/16/22 16:11 AMB [id number]) OP-PT Balance Assessment Standing Balance Standing Balance Comments NBOS EO- fall; WBOS EC- fall Johnson Fall Scale Copyright Permission PT-OP-E Functional Tests Start: 12/15/22 15:43 Freq: Status: Active Protocol: Document 12/16/22 14:34 AMB (Rec: 12/16/22 15:12 AMB [id number]) Functional Tests Five Times Sit to Stand Test Score 8 seconds Comments no UE support PT-OP-G Mobility & Gait Start: 12/15/22 15:43 Freq: Status: Active Protocol: Document 12/16/22 14:30 AMB (Rec: 12/16/22 16:10 AMB [id number]) OP Gait Assessment Comments Gait Comments Pt ambulates with FWW with reduced ankle dorsiflexion bilaterally, worst on the L, compensates wiht increased knee flexion, tends to hold the left knee in a bent position even in stance. With ambulating without AD needs CGA and railing nearby, increases PAULO. Unstable when turning body or turning head. 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 PT-OP-M Strength Start: 12/15/22 15:43 Freq: Status: Active Protocol: Document 12/16/22 14:34 AMB (Rec: 12/16/22 15:12 AMB [id number]) Hip Strength Hip Manual Muscle Testing Left Flexion (L2) 4 Good Extension (S1) 4- Good- Abduction 4 Good Knee Strength Knee Manual Muscle Testing Left Flexion (S2) 4+ Good+ Extension (L3) 4 Good Ankle/Foot Strength Ankle and Foot Manual Muscle Testing Right Dorsiflexion (L4) 4 Good Plantarflexion (S1) 4 Good Left Dorsiflexion (L4) 3 Fair Plantarflexion (S1) 3 Fair PT-OP-Q Treatments Start: 12/15/22 15:43 Freq: Status: Active Protocol: Document 01/12/23 09:51 SP (Rec: 01/12/23 10:34 SP [id number]) Gym Equipment Shuttle Recovery unilateral squat Details cued not lock extension Resistance 25# (new band) R 25# (old band ) Reps/Time x15 bilateral squat Details cued slow eccentric control, no lock ext Resistance 62# (1 new band) Shuttle Recovery Platform Stable Reps/Time 15 Therapeutic Exercises Sitting Exercises hamstring stretch Side bilateral Reps/Minutes 3 x 30s ea Comments cued back straight Sit to stands Sitting Exercise Name HEP review Resistance CGA on foam, S floor Equipment Used mesh chair floor, blue cushion Reps/Minutes 5 reps each, 10 total Comments cue x1 slow hip hinge descend, then good self corrections Standing Exercises ankle/toe Standing Exercise Name PF/DF rock in stagger stance standing with railing Reps/Minutes 2x10 side stepping Standing Exercise Name reviewed PT Equipment Used hands hover rail, LOB retro x1 Min A Reps/Minutes 15ft x 2 laps Comments cued toes fwd, increase L knee flexion advance Gait Training Gait Activity quad cane Device Used QC Level of Assistance SBA Surface level Distance/Duration 40 ft Treatment Focus 2 ptgait, sequencing, knee extension into heel strike, heel toe Comments Worked on step through gait with taller posture Neuro Re-Education Treatment Balance Activities stagger stance Details stationary stance Equipment hands hover rail Comments 1.BIG rocking f/b DF front LE wt shift back, HR back LE front rock 2. WB evenly BLE. 3. HTs horiz/vert PT-OP-T Assessment and Plan Start: 12/15/22 15:43 Freq: Status: Active Protocol: Document 01/12/23 09:51 SP (Rec: 01/12/23 10:34 SP [id number]) Physical Therapy Assessment Goals Two Impairment Balance Short Term Goal (STG) Amanda Pappas will balance with NBOS for 30 seconds wihtout LOB. STG Duration 4 weeks Detention Goal (LTG) Amanda Pappas will show improved dynamic balance by scoring at least 20/24 on the DGI. LTG Duration 10 weeks One Impairment Gait Short Term Goal (STG) Amanda Pappas will ambulate without AD for 20 feet with SBA. STG Duration 4 weeks Implementation Consultant Goal (LTG) Amanda will ambulate with SBA with SPC for 500 feet while navigating turns without LOB. LTG Duration 10 weeks Assessment Summary Assessment Pt improved posture foot alignment and knee flexion and clearance L>R carryover gait end tx post cues from SPTA/ RESOURCE FORESTER. CUed taller bigger movements return to chair sit safely vs reaching outside PAULO . Physical Therapy Plan Frequency and Duration Frequency of Treatment 2x/Week Duration of treatment (weeks) 10 Plan of Care Start Date 12/16/22 Plan of Care End Date 02/24/23 Therapeutic Interventions Therapeutic Interventions Home Exercise Program,Manual Therapy,Neuromuscular Re- education,Self-Care/Home Management,Therapeutic Activities,Therapeutic Exercises Modalities Cold Pack/Ice Massage,Electric Stimulation,Hot Packs Next Visit Focus/Plan Next Note Type Treatment Note Next Visit Plan Continue 2pt gait sequencing w / QC, progress receiprocal decreased ataxic stepping. Continue STS with slow asc/ desc form with feet firm on floor.
--- NOTE | 2023-01-20 13:30 | PT.OTN ---
Current Diagnoses Other abnormalities of gait and mobility (01/20/23) Other symptoms and signs involving the musculoskeletal system (01/20/23) Physical Therapy Treatment Note PT-OP-A Visit Information Start: 12/15/22 15:43 Freq: Status: Active Protocol: Document 01/20/23 12:45 SP (Rec: 01/20/23 13:33 SP [id number]) Out-Patient Physical Therapy Visit Information Visit Information Visit Type Treatment Note Visit Note PN next tx Visit Start Time 12:45 Visit Stop Time 13:30 Total Visit Minutes 45 Visit Number 9 Number of WINDER CONTORT OPERATOR Visits 2 PT-OP-B Current Condition Start: 12/15/22 15:43 Freq: Status: Active Protocol: Document 12/16/22 14:34 AMB (Rec: 12/16/22 15:12 AMB [id number]) Current Condition History of Current Condition Onset Date 1 year ago Current Complaints gait disturbance s/p CVA History of Current Condition 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 Uses a walker most of the time, especially in the community. Has a three pronged cane. Also walk on the the deck with her with hovering the hand over the railing. Does have neuropathy in hands and feet. Prior Treatments and Tests Previous PT worked on improving walking and gait Treatment Goals Patient/Caregiver Goals Pt goal is to walk without walker Personal Factors Other Personal Factors That May Effect Neuropathy significantly Therapy/Recovery limits sensation in bilateral feet PT-OP-C Subjective Start: 12/15/22 15:43 Freq: Status: Active Protocol: Document 01/20/23 12:45 SP (Rec: 01/20/23 13:33 SP [id number]) OP-PT Subjective Patient Comments Patient Comments Pt arrived with new AFO donned LLE to support DF during mobility. PT-OP-D Balance Start: 12/15/22 15:43 Freq: Status: Active Protocol: Document 12/16/22 14:30 AMB (Rec: 12/16/22 16:11 AMB [id number]) OP-PT Balance Assessment Standing Balance Standing Balance Comments NBOS EO- fall; WBOS EC- fall Johnson Fall Scale Copyright Permission PT-OP-E Functional Tests Start: 12/15/22 15:43 Freq: Status: Active Protocol: Document 12/16/22 14:34 AMB (Rec: 12/16/22 15:12 AMB [id number]) Functional Tests Five Times Sit to Stand Test Score 8 seconds Comments no UE support PT-OP-G Mobility & Gait Start: 12/15/22 15:43 Freq: Status: Active Protocol: Document 12/16/22 14:30 AMB (Rec: 12/16/22 16:10 AMB [id number]) OP Gait Assessment Comments Gait Comments Pt ambulates with FWW with reduced ankle dorsiflexion bilaterally, worst on the L, compensates wiht increased knee flexion, tends to hold the left knee in a bent position even in stance. With ambulating without AD needs CGA and railing nearby, increases PAULO. Unstable when turning body or turning head. 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 PT-OP-M Strength Start: 12/15/22 15:43 Freq: Status: Active Protocol: Document 12/16/22 14:34 AMB (Rec: 12/16/22 15:12 AMB [id number]) Hip Strength Hip Manual Muscle Testing Left Flexion (L2) 4 Good Extension (S1) 4- Good- Abduction 4 Good Knee Strength Knee Manual Muscle Testing Left Flexion (S2) 4+ Good+ Extension (L3) 4 Good Ankle/Foot Strength Ankle and Foot Manual Muscle Testing Right Dorsiflexion (L4) 4 Good Plantarflexion (S1) 4 Good Left Dorsiflexion (L4) 3 Fair Plantarflexion (S1) 3 Fair PT-OP-Q Treatments Start: 12/15/22 15:43 Freq: Status: Active Protocol: Document 01/20/23 12:45 SP (Rec: 01/20/23 13:33 SP [id number]) Gym Equipment Shuttle Recovery unilateral squat Details cued not lock extension Resistance 25#> 37# (old bands) each LE Reps/Time 2x12 bilateral squat Details cued slow eccentric control, no lock ext Resistance 62#>75 # (old bands) Shuttle Recovery Platform Stable Reps/Time 2x15 Therapeutic Exercises Sitting Exercises hamstring stretch Sitting Exercise Name reviewed Side bilateral Reps/Minutes 3 x 30s ea Comments cued back straight Sit to stands Sitting Exercise Name HEP review Resistance CGA on foam, S floor Equipment Used mesh chair floor, blue cushion Reps/Minutes 5 reps each, 10 reps floor Comments cue x1 slow hip hinge descend, then good self corrections Gait Training Gait Activity walker Device Used FWW Level of Assistance S Distance/Duration 100ft to gym, 20 ft end tx leaving Comments Pt decreased rigidity stepping , softer stepping, and improved knee extension advancement, improved stride length brii after HS stretch and balance activities. quad cane Description fwd, lateral Device Used QC, no AD Level of Assistance SBA Surface level Distance/Duration 20 ft x3 laps fwd, 10 ft lateral 1 lap Treatment Focus 2 ptgait, sequencing, knee extension into heel strike, heel toe Comments cued little smaller LLE advancement to allow RLE pass LLE. Improved with repetition, better without AD, CGA and improved UE swing. Cued tall scap retraction posturing and LUE arm swing. Neuro Re-Education Treatment Balance Activities dmitriy step Comments 1. single over back w/ light rail support 2. step to patterning w/ QC cued tall posturing, LE advance reach into ext then wt shift wB into BIG rock reach Details fwd Equipment rail support Comments back leg heel raise wt shift fwd front leg toe raise wt shift back arm swing PT-OP-T Assessment and Plan Start: 12/15/22 15:43 Freq: Status: Active Protocol: Document 01/20/23 12:45 SP (Rec: 01/20/23 13:33 SP [id number]) Physical Therapy Assessment Goals Two Impairment Balance Short Term Goal (STG) Amanda Pappas will balance with NBOS for 30 seconds wihtout LOB. STG Duration 4 weeks Inside Sales Recruiter Goal (LTG) Amanda Pappas will show improved dynamic balance by scoring at least 20/24 on the DGI. LTG Duration 10 weeks One Impairment Gait Short Term Goal (STG) Amanda Pappas will ambulate without AD for 20 feet with SBA. STG Duration 4 weeks Inside Sales Recruiter Goal (LTG) Amanda will ambulate with SBA with SPC for 500 feet while navigating turns without LOB. LTG Duration 10 weeks Assessment Summary Assessment Pt decreased rigidity stepping , improved LE knee extension advancement and trunk wt shifting over stance LE during gait post ther ex and balance activities. Reviewed carryover use with QC and FWW end tx with good understanding . Physical Therapy Plan Frequency and Duration Frequency of Treatment 2x/Week Duration of treatment (weeks) 10 Plan of Care Start Date 12/16/22 Plan of Care End Date 02/24/23 Therapeutic Interventions Therapeutic Interventions Home Exercise Program,Manual Therapy,Neuromuscular Re- education,Self-Care/Home Management,Therapeutic Activities,Therapeutic Exercises Modalities Cold Pack/Ice Massage,Electric Stimulation,Hot Packs Next Visit Focus/Plan Next Note Type Progress Note Next Visit Plan PN 10th visit next tx. POC: Continue 2pt gait sequencing w/ QC, progress receiprocal decreased ataxic stepping. Continue STS with slow asc/desc form with feet firm on floor.
--- NOTE | 2023-01-27 15:51 | PT.OTN ---
Current Diagnoses Other abnormalities of gait and mobility (01/27/23) Other symptoms and signs involving the musculoskeletal system (01/27/23) Physical Therapy Treatment Note PT-OP-A Visit Information Start: 12/15/22 15:43 Freq: Status: Active Protocol: Document 01/27/23 15:03 AMB (Rec: 01/27/23 15:51 AMB [id number]) Out-Patient Physical Therapy Visit Information Visit Information Visit Type Progress Note Visit Start Time 14:30 Visit Stop Time 15:15 Total Visit Minutes 45 Visit Number 10 PT-OP-B Current Condition Start: 12/15/22 15:43 Freq: Status: Active Protocol: Document 12/16/22 14:34 AMB (Rec: 12/16/22 15:12 AMB [id number]) Current Condition History of Current Condition Onset Date 1 year ago Current Complaints gait disturbance s/p CVA History of Current Condition 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 Uses a walker most of the time, especially in the community. Has a three pronged cane. Also walk on the the deck with her with hovering the hand over the railing. Does have neuropathy in hands and feet. Prior Treatments and Tests Previous PT worked on improving walking and gait Treatment Goals Patient/Caregiver Goals Pt goal is to walk without walker Personal Factors Other Personal Factors That May Effect Neuropathy significantly Therapy/Recovery limits sensation in bilateral feet PT-OP-C Subjective Start: 12/15/22 15:43 Freq: Status: Active Protocol: Document 01/27/23 15:03 AMB (Rec: 01/27/23 15:51 AMB [id number]) OP-PT Subjective Patient Comments Patient Comments Pt states she wants to work on cane walking. PT-OP-D Balance Start: 12/15/22 15:43 Freq: Status: Active Protocol: Document 12/16/22 14:30 AMB (Rec: 12/16/22 16:11 AMB [id number]) OP-PT Balance Assessment Standing Balance Standing Balance Comments NBOS EO- fall; WBOS EC- fall Johnson Fall Scale Copyright Permission PT-OP-E Functional Tests Start: 12/15/22 15:43 Freq: Status: Active Protocol: Document 12/16/22 14:34 AMB (Rec: 12/16/22 15:12 AMB [id number]) Functional Tests Five Times Sit to Stand Test Score 8 seconds Comments no UE support PT-OP-G Mobility & Gait Start: 12/15/22 15:43 Freq: Status: Active Protocol: Document 12/16/22 14:30 AMB (Rec: 12/16/22 16:10 AMB [id number]) OP Gait Assessment Comments Gait Comments Pt ambulates with FWW with reduced ankle dorsiflexion bilaterally, worst on the L, compensates wiht increased knee flexion, tends to hold the left knee in a bent position even in stance. With ambulating without AD needs CGA and railing nearby, increases PAULO. Unstable when turning body or turning head. 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 PT-OP-M Strength Start: 12/15/22 15:43 Freq: Status: Active Protocol: Document 12/16/22 14:34 AMB (Rec: 12/16/22 15:12 AMB [id number]) Hip Strength Hip Manual Muscle Testing Left Flexion (L2) 4 Good Extension (S1) 4- Good- Abduction 4 Good Knee Strength Knee Manual Muscle Testing Left Flexion (S2) 4+ Good+ Extension (L3) 4 Good Ankle/Foot Strength Ankle and Foot Manual Muscle Testing Right Dorsiflexion (L4) 4 Good Plantarflexion (S1) 4 Good Left Dorsiflexion (L4) 3 Fair Plantarflexion (S1) 3 Fair PT-OP-Q Treatments Start: 12/15/22 15:43 Freq: Status: Active Protocol: Document 01/27/23 15:03 AMB (Rec: 01/27/23 15:51 AMB [id number]) Gait Training Gait Activity SPC Distance/Duration 10'x3 Comments Alexy to prevent LOB when distracted stairs Description receiprocal stepping Device Used B HR Level of Assistance S Distance/Duration 4 steps x4 sets Treatment Focus softer stepping, flud movement , Comments cued softer stepping allowed decrease rigid stepping with cues walker Description with head turns Device Used FWW Level of Assistance SBA Distance/Duration 100ft to gym, 20 ft end tx leaving Comments Pt decreased rigidity stepping , softer stepping, and improved knee extension advancement, improved stride length brii after HS stretch and balance activities. quad cane Description fwd, Device Used QC, no AD Level of Assistance SBA Surface level Distance/Duration 40ftx 3 Treatment Focus 2 ptgait, sequencing, knee extension into heel strike, heel toe Comments cued little smaller LLE advancement to allow RLE pass LLE. Improved with repetition, better without AD, CGA and improved UE swing. Cued tall scap retraction posturing and LUE arm swing. Neuro Re-Education Treatment Balance Activities dmitriy step Comments 1. single over back w/ light rail support 2. step to patterning w/ QC cued tall posturing, LE advance reach into ext then wt shift wB into stagger stance Details stationary stance Equipment hands hover rail Comments 1.BIG rocking f/b DF front LE wt shift back, HR back LE front rock 2. WB evenly BLE. 3. HTs horiz/vert PT-OP-T Assessment and Plan Start: 12/15/22 15:43 Freq: Status: Active Protocol: Document 01/27/23 15:03 AMB (Rec: 01/27/23 15:51 [facility] [id number]) Physical Therapy Assessment Goals Two Impairment Balance Short Term Goal (STG) Amanda Pappas will balance with NBOS for 30 seconds wihtout LOB. STG Duration MET Nursing Home Goal (LTG) Amanda Pappas will show improved dynamic balance by scoring at least 20/24 on the DGI. 01/27: LTG Duration 10 weeks One Impairment Gait Short Term Goal (STG) Amanda Pappas will ambulate without AD for 20 feet with SBA. STG Duration 4 weeks Trace Evidence Technician Goal (LTG) Amanda will ambulate with SBA with SPC for 500 feet while navigating turns without LOB. 01/27: Ambulated 50 feet with SPC but turns remain challenging. LTG Duration 10 weeks Assessment Summary Assessment Pt is progressing with her gait. DGI score continues to be in the higher fall risk category. Did need intermittent Alexy today during SPC gait, but improving with SBQC. Physical Therapy Plan Frequency and Duration Frequency of Treatment 2x/Week Duration of treatment (weeks) 10 Plan of Care Start Date 12/16/22 Plan of Care End Date 02/24/23 Therapeutic Interventions Therapeutic Interventions Home Exercise Program,Manual Therapy,Neuromuscular Re- education,Self-Care/Home Management,Therapeutic Activities,Therapeutic Exercises Modalities Cold Pack/Ice Massage,Electric Stimulation,Hot Packs Next Visit Focus/Plan Next Note Type Treatment Note Next Visit Plan POC: Continue 2pt gait sequencing w/ QC, progress receiprocal decreased ataxic stepping. Continue STS with slow asc/desc form with feet firm on floor.
--- NOTE | 2023-01-30 13:30 | PT.OTN ---
Current Diagnoses Other abnormalities of gait and mobility (01/30/23) Other symptoms and signs involving the musculoskeletal system (01/30/23) Physical Therapy Treatment Note PT-OP-A Visit Information Start: 12/15/22 15:43 Freq: Status: Active Protocol: Document 01/30/23 12:48 SP (Rec: 01/30/23 13:32 SP [id number]) Out-Patient Physical Therapy Visit Information Visit Information Visit Type Treatment Note Visit Note 09/30 after PN Visit Start Time 12:48 Visit Stop Time 13:30 Total Visit Minutes 42 Visit Number 11 Number of STATISTICAL PROGRAMMER Visits 1 PT-OP-B Current Condition Start: 12/15/22 15:43 Freq: Status: Active Protocol: Document 12/16/22 14:34 AMB (Rec: 12/16/22 15:12 AMB [id number]) Current Condition History of Current Condition Onset Date 1 year ago Current Complaints gait disturbance s/p CVA History of Current Condition 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 Uses a walker most of the time, especially in the community. Has a three pronged cane. Also walk on the the deck with her with hovering the hand over the railing. Does have neuropathy in hands and feet. Prior Treatments and Tests Previous PT worked on improving walking and gait Treatment Goals Patient/Caregiver Goals Pt goal is to walk without walker Personal Factors Other Personal Factors That May Effect Neuropathy significantly Therapy/Recovery limits sensation in bilateral feet PT-OP-C Subjective Start: 12/15/22 15:43 Freq: Status: Active Protocol: Document 01/30/23 12:48 SP (Rec: 01/30/23 13:32 SP [id number]) OP-PT Subjective Patient Comments Patient Comments Pt reports walking more with QC at home inside and porch. PT-OP-D Balance Start: 12/15/22 15:43 Freq: Status: Active Protocol: Document 12/16/22 14:30 AMB (Rec: 12/16/22 16:11 AMB [id number]) OP-PT Balance Assessment Standing Balance Standing Balance Comments NBOS EO- fall; WBOS EC- fall Johnson Fall Scale Copyright Permission PT-OP-E Functional Tests Start: 12/15/22 15:43 Freq: Status: Active Protocol: Document 12/16/22 14:34 AMB (Rec: 12/16/22 15:12 AMB [id number]) Functional Tests Five Times Sit to Stand Test Score 8 seconds Comments no UE support PT-OP-G Mobility & Gait Start: 12/15/22 15:43 Freq: Status: Active Protocol: Document 12/16/22 14:30 AMB (Rec: 12/16/22 16:10 AMB [id number]) OP Gait Assessment Comments Gait Comments Pt ambulates with FWW with reduced ankle dorsiflexion bilaterally, worst on the L, compensates wiht increased knee flexion, tends to hold the left knee in a bent position even in stance. With ambulating without AD needs CGA and railing nearby, increases PAULO. Unstable when turning body or turning head. 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 PT-OP-M Strength Start: 12/15/22 15:43 Freq: Status: Active Protocol: Document 12/16/22 14:34 AMB (Rec: 12/16/22 15:12 AMB [id number]) Hip Strength Hip Manual Muscle Testing Left Flexion (L2) 4 Good Extension (S1) 4- Good- Abduction 4 Good Knee Strength Knee Manual Muscle Testing Left Flexion (S2) 4+ Good+ Extension (L3) 4 Good Ankle/Foot Strength Ankle and Foot Manual Muscle Testing Right Dorsiflexion (L4) 4 Good Plantarflexion (S1) 4 Good Left Dorsiflexion (L4) 3 Fair Plantarflexion (S1) 3 Fair PT-OP-Q Treatments Start: 12/15/22 15:43 Freq: Status: Active Protocol: Document 01/30/23 12:48 SP (Rec: 01/30/23 13:32 SP [id number]) Gait Training Gait Activity uneven terrain Description gravel incline/decline Device Used QC Level of Assistance CG- Min A Distance/Duration 30 ft total Treatment Focus glut drive, wt shift over COG, safety stepping w/AD Comments cued smaller step asc/descend, glut drive stairs Description receiprocal stepping Device Used B HR S, R HR and QC on L SBA Level of Assistance S Distance/Duration 4 steps x4 sets Treatment Focus softer stepping, fluid movement, Comments cued softer stepping allowed decrease rigid stepping with cues quad cane Description fwd, Device Used QC, no AD Level of Assistance SBA Surface level Distance/Duration 225 ft, Treatment Focus 2 ptgait, sequencing, knee extension into heel strike, heel toe Comments cued little smaller LLE advancement to allow RLE pass LLE, occasional cue tall scap retraction posturing and LUE arm swing. Neuro Re-Education Treatment Balance Activities dmitriy step Comments 1. single over back w/ light rail support 2. step to patterning w/ QC cued tall posturing, LE advance reach into ext then wt shift wB into- LOB x2 RLE advance to close together- Min A recovery and cues be sure stable before advance LE. BIG rock reach Details fwd Equipment rail support Comments back leg heel raise wt shift fwd front leg toe raise wt shift back arm swing PT-OP-T Assessment and Plan Start: 12/15/22 15:43 Freq: Status: Active Protocol: Document 01/30/23 12:48 SP (Rec: 01/30/23 13:32 SP [id number]) Physical Therapy Assessment Goals Two Impairment Balance Short Term Goal (STG) Amanda Pappas will balance with NBOS for 30 seconds wihtout LOB. STG Duration MET Landscape Nurseryman Goal (LTG) Amanda Pappas will show improved dynamic balance by scoring at least 20/24 on the DGI. 01/27: 15/24 LTG Duration 10 weeks One Impairment Gait Short Term Goal (STG) Amanda Pappas will ambulate without AD for 20 feet with SBA. STG Duration 4 weeks Landscape Nurseryman Goal (LTG) Amanda will ambulate with SBA with SPC for 500 feet while navigating turns without LOB. 01/27: Ambulated 50 feet with SPC but turns remain challenging. LTG Duration 10 weeks Assessment Summary Assessment Pt improved wt shifting between BLEs rock reach without UE support small range inside //bars, not as much amplitude but increase confidence balance. Pt required outside support during descending gravel inclined outside with cues for slower pacing and more upright and little retro lean for balanced stability, glut drive LLE push off to ascend gravel incline. LOB x2 during dmitriy stepping use of QC due to foot positioning stagger stance, Min A recovery, cues increase PAULO LE adavancement improved decrease CGA. Physical Therapy Plan Frequency and Duration Frequency of Treatment 2x/Week Duration of treatment (weeks) 10 Plan of Care Start Date 12/16/22 Plan of Care End Date 02/24/23 Therapeutic Interventions Therapeutic Interventions Home Exercise Program,Manual Therapy,Neuromuscular Re- education,Self-Care/Home Management,Therapeutic Activities,Therapeutic Exercises Modalities Cold Pack/Ice Massage,Electric Stimulation,Hot Packs Next Visit Focus/Plan Next Note Type Treatment Note Next Visit Plan Continue LLE HS stretch/ extension foot clearance. POC: Continue 2pt gait sequencing w/ QC, progress receiprocal decreased ataxic stepping. Continue STS with slow asc/desc form with feet firm on floor.
--- NOTE | 2023-02-03 15:38 | PT.OTN ---
Current Diagnoses Other abnormalities of gait and mobility (02/03/23) Other symptoms and signs involving the musculoskeletal system (02/03/23) Physical Therapy Treatment Note PT-OP-A Visit Information Start: 12/15/22 15:43 Freq: Status: Active Protocol: Document 02/03/23 14:30 AMB (Rec: 02/03/23 15:38 AMB [id number]) Out-Patient Physical Therapy Visit Information Visit Information Visit Type Treatment Note Visit Start Time 14:30 Visit Stop Time 15:15 Total Visit Minutes 45 Visit Number 12 PT-OP-B Current Condition Start: 12/15/22 15:43 Freq: Status: Active Protocol: Document 12/16/22 14:34 AMB (Rec: 12/16/22 15:12 AMB [id number]) Current Condition History of Current Condition Onset Date 1 year ago Current Complaints gait disturbance s/p CVA History of Current Condition 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 Uses a walker most of the time, especially in the community. Has a three pronged cane. Also walk on the the deck with her with hovering the hand over the railing. Does have neuropathy in hands and feet. Prior Treatments and Tests Previous PT worked on improving walking and gait Treatment Goals Patient/Caregiver Goals Pt goal is to walk without walker Personal Factors Other Personal Factors That May Effect Neuropathy significantly Therapy/Recovery limits sensation in bilateral feet PT-OP-C Subjective Start: 12/15/22 15:43 Freq: Status: Active Protocol: Document 02/03/23 14:30 AMB (Rec: 02/03/23 15:38 AMB [id number]) OP-PT Subjective Patient Comments Patient Comments Pt reports did well with walking on gravel last treatment. Ok with starting to thinking about d/c. PT-OP-D Balance Start: 12/15/22 15:43 Freq: Status: Active Protocol: Document 12/16/22 14:30 AMB (Rec: 12/16/22 16:11 AMB [id number]) OP-PT Balance Assessment Standing Balance Standing Balance Comments NBOS EO- fall; WBOS EC- fall Johnson Fall Scale Copyright Permission PT-OP-E Functional Tests Start: 12/15/22 15:43 Freq: Status: Active Protocol: Document 12/16/22 14:34 AMB (Rec: 12/16/22 15:12 AMB [id number]) Functional Tests Five Times Sit to Stand Test Score 8 seconds Comments no UE support PT-OP-G Mobility & Gait Start: 12/15/22 15:43 Freq: Status: Active Protocol: Document 12/16/22 14:30 AMB (Rec: 12/16/22 16:10 AMB [id number]) OP Gait Assessment Comments Gait Comments Pt ambulates with FWW with reduced ankle dorsiflexion bilaterally, worst on the L, compensates wiht increased knee flexion, tends to hold the left knee in a bent position even in stance. With ambulating without AD needs CGA and railing nearby, increases PAULO. Unstable when turning body or turning head. 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 PT-OP-M Strength Start: 12/15/22 15:43 Freq: Status: Active Protocol: Document 12/16/22 14:34 AMB (Rec: 12/16/22 15:12 AMB [id number]) Hip Strength Hip Manual Muscle Testing Left Flexion (L2) 4 Good Extension (S1) 4- Good- Abduction 4 Good Knee Strength Knee Manual Muscle Testing Left Flexion (S2) 4+ Good+ Extension (L3) 4 Good Ankle/Foot Strength Ankle and Foot Manual Muscle Testing Right Dorsiflexion (L4) 4 Good Plantarflexion (S1) 4 Good Left Dorsiflexion (L4) 3 Fair Plantarflexion (S1) 3 Fair PT-OP-Q Treatments Start: 12/15/22 15:43 Freq: Status: Active Protocol: Document 02/03/23 14:30 AMB (Rec: 02/03/23 15:38 AMB [id number]) Therapeutic Exercises Sitting Exercises hamstring stretch Sitting Exercise Name reviewed Side bilateral Reps/Minutes 3 x 30s ea Comments cued back straight Sit to stands Sitting Exercise Name HEP review Resistance CGA on foam, S floor Equipment Used mesh chair floor, blue cushion Reps/Minutes 5 reps each, 10 reps floor Comments cue x1 slow hip hinge descend, then good self corrections Standing Exercises mini lunge Standing Exercise Name with rail- challenigng Reps/Minutes 2x10 step over back Standing Exercise Name in PT Equipment Used step over qc laying on floor, rail support Reps/Minutes 8 reps each LE Comments cued extension advanced LE, WB onto LE side stepping Standing Exercise Name reviewed PT Equipment Used hands hover rail, LOB retro x1 Min A Reps/Minutes 15ft x 2 laps Comments cued toes fwd, increase L knee flexion advance Gait Training Gait Activity quad cane Description fwd, Device Used QC, no AD Level of Assistance SBA Surface level Distance/Duration 225 ft, Treatment Focus 2 ptgait, sequencing, knee extension into heel strike, heel toe Comments cued little smaller LLE advancement to allow RLE pass LLE, occasional cue tall scap retraction posturing and LUE arm swing. Neuro Re-Education Treatment Balance Activities blue foam Comments challenging (NBOS) dmitriy step Comments 1. single over back w/ light rail support 2. step to patterning w/ QC cued tall posturing, LE advance reach into ext then wt shift wB into- LOB x2 RLE advance to close together- Min A recovery and cues be sure stable before advance LE. BIG rock reach Details fwd Equipment rail support Comments back leg heel raise wt shift fwd front leg toe raise wt shift back arm swing stagger stance Details stationary stance Equipment hands hover rail Comments 1.BIG rocking f/b DF front LE wt shift back, HR back LE front rock 2. WB evenly BLE. 3. HTs horiz/vert PT-OP-T Assessment and Plan Start: 12/15/22 15:43 Freq: Status: Active Protocol: Document 02/03/23 14:30 AMB (Rec: 02/03/23 15:38 AMB [id number]) Physical Therapy Assessment Goals Two Impairment Balance Short Term Goal (STG) Amanda Pappas will balance with NBOS for 30 seconds wihtout LOB. STG Duration MET Electrical Products Sales Engineer Goal (LTG) Amanda Pappas will show improved dynamic balance by scoring at least / on the DGI. 01/27: LTG Duration 10 weeks One Impairment Gait Short Term Goal (STG) Amanda Pappas will ambulate without AD for 20 feet with SBA. STG Duration 4 weeks Detention Goal (LTG) Amanda will ambulate with SBA with SPC for 500 feet while navigating turns without LOB. 01/27: Ambulated 50 feet with SPC but turns remain challenging. LTG Duration 10 weeks Assessment Summary Assessment Pt states she has been using her cane at home, reiterated importance of safety, posture, gait speed and how all of these are better with walker. Physical Therapy Plan Frequency and Duration Frequency of Treatment 2x/Week Duration of treatment (weeks) 10 Plan of Care Start Date 12/16/22 Plan of Care End Date 02/24/23 Therapeutic Interventions Therapeutic Interventions Home Exercise Program,Manual Therapy,Neuromuscular Re- education,Self-Care/Home Management,Therapeutic Activities,Therapeutic Exercises Modalities Cold Pack/Ice Massage,Electric Stimulation,Hot Packs Next Visit Focus/Plan Next Note Type Treatment Note Next Visit Plan Continue LLE HS stretch/ extension foot clearance. POC: Continue 2pt gait sequencing w/ QC, progress receiprocal decreased ataxic stepping. Continue STS with slow asc/desc form with feet firm on floor.
--- NOTE | 2023-02-06 13:31 | PT.OTN ---
Current Diagnoses Other abnormalities of gait and mobility (02/06/23) Other symptoms and signs involving the musculoskeletal system (02/06/23) Physical Therapy Treatment Note PT-OP-A Visit Information Start: 12/15/22 15:43 Freq: Status: Active Protocol: Document 02/06/23 12:53 SP (Rec: 02/06/23 13:35 SP [id number]) Out-Patient Physical Therapy Visit Information Visit Information Visit Type Treatment Note Visit Note 11/28 Visit Start Time 12:53 Visit Stop Time 13:31 Total Visit Minutes 38 Visit Number 13 Number of WATER POLLUTION CONTROL TECHNICIAN Visits 1 PT-OP-B Current Condition Start: 12/15/22 15:43 Freq: Status: Active Protocol: Document 12/16/22 14:34 AMB (Rec: 12/16/22 15:12 AMB [id number]) Current Condition History of Current Condition Onset Date 1 year ago Current Complaints gait disturbance s/p CVA History of Current Condition 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 Uses a walker most of the time, especially in the community. Has a three pronged cane. Also walk on the the deck with her with hovering the hand over the railing. Does have neuropathy in hands and feet. Prior Treatments and Tests Previous PT worked on improving walking and gait Treatment Goals Patient/Caregiver Goals Pt goal is to walk without walker Personal Factors Other Personal Factors That May Effect Neuropathy significantly Therapy/Recovery limits sensation in bilateral feet PT-OP-C Subjective Start: 12/15/22 15:43 Freq: Status: Active Protocol: Document 02/06/23 12:53 SP (Rec: 02/06/23 13:35 SP [id number]) OP-PT Subjective Patient Comments Patient Comments Pt PT-OP-D Balance Start: 12/15/22 15:43 Freq: Status: Active Protocol: Document 12/16/22 14:30 AMB (Rec: 12/16/22 16:11 AMB [id number]) OP-PT Balance Assessment Standing Balance Standing Balance Comments NBOS EO- fall; WBOS EC- fall Johnson Fall Scale Copyright Permission PT-OP-E Functional Tests Start: 12/15/22 15:43 Freq: Status: Active Protocol: Document 12/16/22 14:34 AMB (Rec: 12/16/22 15:12 AMB [id number]) Functional Tests Five Times Sit to Stand Test Score 8 seconds Comments no UE support PT-OP-G Mobility & Gait Start: 12/15/22 15:43 Freq: Status: Active Protocol: Document 12/16/22 14:30 AMB (Rec: 12/16/22 16:10 AMB [id number]) OP Gait Assessment Comments Gait Comments Pt ambulates with FWW with reduced ankle dorsiflexion bilaterally, worst on the L, compensates wiht increased knee flexion, tends to hold the left knee in a bent position even in stance. With ambulating without AD needs CGA and railing nearby, increases PAULO. Unstable when turning body or turning head. 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 PT-OP-M Strength Start: 12/15/22 15:43 Freq: Status: Active Protocol: Document 12/16/22 14:34 AMB (Rec: 12/16/22 15:12 AMB [id number]) Hip Strength Hip Manual Muscle Testing Left Flexion (L2) 4 Good Extension (S1) 4- Good- Abduction 4 Good Knee Strength Knee Manual Muscle Testing Left Flexion (S2) 4+ Good+ Extension (L3) 4 Good Ankle/Foot Strength Ankle and Foot Manual Muscle Testing Right Dorsiflexion (L4) 4 Good Plantarflexion (S1) 4 Good Left Dorsiflexion (L4) 3 Fair Plantarflexion (S1) 3 Fair PT-OP-Q Treatments Start: 12/15/22 15:43 Freq: Status: Active Protocol: Document 02/06/23 12:53 SP (Rec: 02/06/23 13:35 SP [id number]) Gym Equipment Shuttle Recovery unilateral squat Details cued not lock extension Resistance 37# (old bands) Reps/Time 2x12 bilateral squat Details cued knee alignment abd with mid foot/ glut fac decrease knee recruitment Resistance 75 # (onew bands) Shuttle Recovery Platform Stable Reps/Time x15 Therapeutic Exercises Standing Exercises hip ext Side bilateral Resistance AROM Equipment Used rail contact ankle/toe Standing Exercise Name PF/DF rock in stagger stance standing with railing Equipment Used rail contact Reps/Minutes 2x10 Comments cued not hip rocking, keep buttocks under trunk side stepping Standing Exercise Name F/B/Lateral Equipment Used hands hover rail Reps/Minutes 10ft x 4 laps each direction Comments cued tall posturing, core fac, foot clearance L Gait Training Gait Activity // bars Description fwd and sidestepping Device Used //bars Level of Assistance close SBA Surface carpet Distance/Duration 4 laps fwd Treatment Focus stride length, heel toe, push off Comments cued posturing, arms swing, L knee foot clearance advance and knee extend reach heel strike. quad cane Description fwd, Device Used QC, no AD Level of Assistance SBA Surface level Distance/Duration 220 ft, Treatment Focus 2 ptgait, sequencing, knee extension into heel strike, heel toe Comments cued little smaller LLE advancement to allow RLE pass LLE, L knee extend front, occasional cue tall scap retraction posturing and LUE arm swing. Improved after f/b/ lateral stepping in //bar. Neuro Re-Education Treatment Balance Activities BIG rock reach Details fwd Equipment rail as needed 30% time Comments back leg heel raise wt shift fwd front leg toe raise wt shift back arm swing stagger stance Details stationary stance Equipment hands hover rail Comments 1.BIG rocking f/b DF front LE wt shift back, HR back LE front rock 2. WB evenly BLE. 3. HTs horiz/vert, more challenge LLE back position, cued heel down, shorten up stance. PT-OP-T Assessment and Plan Start: 12/15/22 15:43 Freq: Status: Active Protocol: Document 02/06/23 12:53 SP (Rec: 02/06/23 13:35 SP [id number]) Physical Therapy Assessment Goals Two Impairment Balance Short Term Goal (STG) Amanda Pappas will balance with NBOS for 30 seconds wihtout LOB. STG Duration MET [facility] Goal (LTG) Amanda Pappas will show improved dynamic balance by scoring at least 20 on the DGI. 01/27: 15 LTG Duration 10 weeks One Impairment Gait Short Term Goal (STG) Amanda Pappas will ambulate without AD for 20 feet with SBA. STG Duration 4 weeks Director Stage Goal (LTG) Amanda will ambulate with SBA with SPC for 500 feet while navigating turns without LOB. 01/27: Ambulated 50 feet with SPC but turns remain challenging. LTG Duration 10 weeks Assessment Summary Assessment Pt ataxic initiailly with QC, improved arms swing, increase strike post f/b/lateral stepping in//bars. Not significant carryover w/ 4WW leaving than when arrived. Discussed L foot scuffs ground without cues, FWW best when mulitasking gait activities. Physical Therapy Plan Frequency and Duration Frequency of Treatment 2x/Week Duration of treatment (weeks) 10 Plan of Care Start Date 12/16/22 Plan of Care End Date 02/24/23 Therapeutic Interventions Therapeutic Interventions Home Exercise Program,Manual Therapy,Neuromuscular Re- education,Self-Care/Home Management,Therapeutic Activities,Therapeutic Exercises Modalities Cold Pack/Ice Massage,Electric Stimulation,Hot Packs Next Visit Focus/Plan Next Note Type Treatment Note Next Visit Plan Updated POC in 2 tx. Continue LLE HS stretch pre mobility/ extension foot clearance. POC: Continue 2pt gait sequencing w/ QC, progress receiprocal decreased ataxic stepping. Continue STS with slow asc/desc form with feet firm on floor.
--- NOTE | 2023-02-10 14:15 | PT.OTN ---
Current Diagnoses Other abnormalities of gait and mobility (02/10/23) Other symptoms and signs involving the musculoskeletal system (02/10/23) Physical Therapy Treatment Note PT-OP-A Visit Information Start: 12/15/22 15:43 Freq: Status: Active Protocol: Document 02/10/23 13:35 SP (Rec: 02/10/23 14:20 SP [id number]) Out-Patient Physical Therapy Visit Information Visit Information Visit Type Treatment Note Visit Note 12/29 Visit Start Time 13:35 Visit Stop Time 14:15 Total Visit Minutes 40 Visit Number 14 Number of PAPER CUTTER Visits 2 PT-OP-B Current Condition Start: 12/15/22 15:43 Freq: Status: Active Protocol: Document 12/16/22 14:34 AMB (Rec: 12/16/22 15:12 AMB [id number]) Current Condition History of Current Condition Onset Date 1 year ago Current Complaints gait disturbance s/p CVA History of Current Condition 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 Uses a walker most of the time, especially in the community. Has a three pronged cane. Also walk on the the deck with her with hovering the hand over the railing. Does have neuropathy in hands and feet. Prior Treatments and Tests Previous PT worked on improving walking and gait Treatment Goals Patient/Caregiver Goals Pt goal is to walk without walker Personal Factors Other Personal Factors That May Effect Neuropathy significantly Therapy/Recovery limits sensation in bilateral feet PT-OP-C Subjective Start: 12/15/22 15:43 Freq: Status: Active Protocol: Document 02/10/23 13:35 SP (Rec: 02/10/23 14:20 SP [id number]) OP-PT Subjective Patient Comments Patient Comments Pt reports thinks doing better and feels ready to continue on own with good support. She states discussed doing well and thinks using QC during day and FWW at night due to not fully awake. PT-OP-D Balance Start: 12/15/22 15:43 Freq: Status: Active Protocol: Document 12/16/22 14:30 AMB (Rec: 12/16/22 16:11 AMB [id number]) OP-PT Balance Assessment Standing Balance Standing Balance Comments NBOS EO- fall; WBOS EC- fall Johnson Fall Scale Copyright Permission PT-OP-E Functional Tests Start: 12/15/22 15:43 Freq: Status: Active Protocol: Document 12/16/22 14:34 AMB (Rec: 12/16/22 15:12 AMB [id number]) Functional Tests Five Times Sit to Stand Test Score 8 seconds Comments no UE support PT-OP-G Mobility & Gait Start: 12/15/22 15:43 Freq: Status: Active Protocol: Document 12/16/22 14:30 AMB (Rec: 12/16/22 16:10 AMB [id number]) OP Gait Assessment Comments Gait Comments Pt ambulates with FWW with reduced ankle dorsiflexion bilaterally, worst on the L, compensates wiht increased knee flexion, tends to hold the left knee in a bent position even in stance. With ambulating without AD needs CGA and railing nearby, increases PAULO. Unstable when turning body or turning head. 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 PT-OP-M Strength Start: 12/15/22 15:43 Freq: Status: Active Protocol: Document 12/16/22 14:34 AMB (Rec: 12/16/22 15:12 AMB [id number]) Hip Strength Hip Manual Muscle Testing Left Flexion (L2) 4 Good Extension (S1) 4- Good- Abduction 4 Good Knee Strength Knee Manual Muscle Testing Left Flexion (S2) 4+ Good+ Extension (L3) 4 Good Ankle/Foot Strength Ankle and Foot Manual Muscle Testing Right Dorsiflexion (L4) 4 Good Plantarflexion (S1) 4 Good Left Dorsiflexion (L4) 3 Fair Plantarflexion (S1) 3 Fair PT-OP-Q Treatments Start: 12/15/22 15:43 Freq: Status: Active Protocol: Document 02/10/23 13:35 SP (Rec: 02/10/23 14:20 SP [id number]) Therapeutic Exercises Sitting Exercises hamstring stretch Sitting Exercise Name reviewed Side bilateral Reps/Minutes 3 x 30s ea Comments cued back straight Sit to stands Sitting Exercise Name HEP review Resistance CGA on foam, S floor Equipment Used mesh chair floor Reps/Minutes 5 reps: 6 sec, Comments 1 little quicker descend but no LOB Gait Training Gait Activity no AD Device Used 0 Level of Assistance close SBA Distance/Duration 15 ft x3 laps Treatment Focus foot clearance, increase PAULO during pivot turns Comments Improved confidence increase stride and turns for foot clearance no LOB or over wt shift noted. // bars Description fwd, back, sidestepping Device Used near rail Level of Assistance close SBA fwd & lateral, CGA bk Surface carpet Distance/Duration 2 laps each direction Treatment Focus stride length, heel toe, push off Comments cued posturing, arms swing, L increase knee flexion for foot clearance lateral and knee extend reach heel strike. occasional and self corrections trunk little more forward during back stepping for increase stability over wt shift to R rail support recovery. quad cane Description 6MWT Device Used QC Level of Assistance SBA Surface level Distance/Duration 340 ft Treatment Focus 2 pt gait, arm swing, head turns, larger pivot turns Comments progressin ft in 6 min w / QC, improved arm swing, bigger stride during turns, couple small head turn with no LOB. 1 smaller turn round a chair slight retro lean but wt shift forward with QC and in LLE recovered stability. SBA She reports anterior R hip little strain end distance. Neuro Re-Education Treatment Balance Activities TUG Details no AD Reps/Duration 28 sec, 28 sec, 27 sec Comments improved arm swing, slows during pivot step back to sit. Cued larger foot march steps while pivot and back up for confidenct balance like doing distance. PT-OP-T Assessment and Plan Start: 12/15/22 15:43 Freq: Status: Active Protocol: Document 02/10/23 13:35 SP (Rec: 02/10/23 14:20 SP [id number]) Physical Therapy Assessment Goals Two Impairment Balance Short Term Goal (STG) Amanda Pappas will balance with NBOS for 30 seconds wihtout LOB. STG Duration MET [facility] Goal (LTG) Amanda Pappas will show improved dynamic balance by scoring at least 20/24 on the DGI. 01/27: 15 LTG Duration 10 weeks One Impairment Gait Short Term Goal (STG) Amanda Pappas will ambulate without AD for 20 feet with SBA. 02/10/23: GOAL MET: able to STS and walk 15 ft x3 laps with improved march pivot step clearance without stop rest, slight wt shift but no LOB. TU sec, improved arms swing. STG Duration 4 weeks 02/10 GOAL met Fpc Goal (LTG) Amanda will ambulate with SBA with SPC for 500 feet while navigating turns without LOB. 01/27: Ambulated 50 feet with SPC but turns remain challenging. 02/10/23: progressin ft in 6 min w/ QC, improved arm swing, bigger stride during turns, couple small head turn with no LOB. 1 smaller turn round a chair slight retro lean but wt shift forward with QC and in LLE recovered stability. SBA She reports anterior R hip little strain end distance. LTG Duration 10 weeks progressing 02/10/23 Assessment Summary Assessment Pt improves more fluid gait with no AD short distance 20 ft and longer distance with QC noted arms swing, performed small head turn when someone approaching with slight slow pacing but no LOB or ataxic movements. See 6MWT, Physical Therapy Plan Frequency and Duration Frequency of Treatment 2x/Week Duration of treatment (weeks) 10 Plan of Care Start Date 12/16/22 Plan of Care End Date 02/24/23 Therapeutic Interventions Therapeutic Interventions Home Exercise Program,Manual Therapy,Neuromuscular Re- education,Self-Care/Home Management,Therapeutic Activities,Therapeutic Exercises Modalities Cold Pack/Ice Massage,Electric Stimulation,Hot Packs Next Visit Focus/Plan Next Note Type Treatment Note Next Visit Plan 1 more appt scheduled, Updated POC in 1 tx. Pt considering DC to [facility].
--- NOTE | 2023-02-13 14:15 | PT.OTN ---
Current Diagnoses Other abnormalities of gait and mobility (02/13/23) Other symptoms and signs involving the musculoskeletal system (02/13/23) Physical Therapy Treatment Note PT-OP-A Visit Information Start: 12/15/22 15:43 Freq: Status: Active Protocol: Document 02/13/23 14:01 AMB (Rec: 04/02/23 14:09 AMB [id number]) Out-Patient Physical Therapy Visit Information Visit Information Visit Type Treatment Note Visit Start Time 12:00 Visit Stop Time 12:45 Total Visit Minutes 45 Visit Number 15 PT-OP-B Current Condition Start: 12/15/22 15:43 Freq: Status: Active Protocol: Document 12/16/22 14:34 AMB (Rec: 12/16/22 15:12 AMB [id number]) Current Condition History of Current Condition Onset Date 1 year ago Current Complaints gait disturbance s/p CVA History of Current Condition 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 Uses a walker most of the time, especially in the community. Has a three pronged cane. Also walk on the the deck with her with hovering the hand over the railing. Does have neuropathy in hands and feet. Prior Treatments and Tests Previous PT worked on improving walking and gait Treatment Goals Patient/Caregiver Goals Pt goal is to walk without walker Personal Factors Other Personal Factors That May Effect Neuropathy significantly Therapy/Recovery limits sensation in bilateral feet PT-OP-C Subjective Start: 12/15/22 15:43 Freq: Status: Active Protocol: Document 02/13/23 14:01 AMB (Rec: 04/02/23 14:09 AMB [id number]) OP-PT Subjective Patient Comments Patient Comments Pt is ready for discharge, hasn't completely met goals of walking without any AD, but does continue to walk with hand hovering over railing and near by and feels that AFO has been helpful to be more stable with this. PT-OP-D Balance Start: 12/15/22 15:43 Freq: Status: Active Protocol: Document 12/16/22 14:30 AMB (Rec: 12/16/22 16:11 AMB [id number]) OP-PT Balance Assessment Standing Balance Standing Balance Comments NBOS EO- fall; WBOS EC- fall Johnson Fall Scale Copyright Permission PT-OP-E Functional Tests Start: 12/15/22 15:43 Freq: Status: Active Protocol: Document 12/16/22 14:34 AMB (Rec: 12/16/22 15:12 AMB [id number]) Functional Tests Five Times Sit to Stand Test Score 8 seconds Comments no UE support PT-OP-G Mobility & Gait Start: 12/15/22 15:43 Freq: Status: Active Protocol: Document 12/16/22 14:30 AMB (Rec: 12/16/22 16:10 AMB [id number]) OP Gait Assessment Comments Gait Comments Pt ambulates with FWW with reduced ankle dorsiflexion bilaterally, worst on the L, compensates wiht increased knee flexion, tends to hold the left knee in a bent position even in stance. With ambulating without AD needs CGA and railing nearby, increases PAULO. Unstable when turning body or turning head. 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 PT-OP-M Strength Start: 12/15/22 15:43 Freq: Status: Active Protocol: Document 12/16/22 14:34 AMB (Rec: 12/16/22 15:12 AMB [id number]) Hip Strength Hip Manual Muscle Testing Left Flexion (L2) 4 Good Extension (S1) 4- Good- Abduction 4 Good Knee Strength Knee Manual Muscle Testing Left Flexion (S2) 4+ Good+ Extension (L3) 4 Good Ankle/Foot Strength Ankle and Foot Manual Muscle Testing Right Dorsiflexion (L4) 4 Good Plantarflexion (S1) 4 Good Left Dorsiflexion (L4) 3 Fair Plantarflexion (S1) 3 Fair PT-OP-Q Treatments Start: 12/15/22 15:43 Freq: Status: Active Protocol: Document 02/13/23 14:01 AMB (Rec: 04/02/23 14:09 AMB [id number]) Gait Training Gait Activity back stepping Device Used rail Level of Assistance CGA/ SBA Surface rail, no rail Distance/Duration 15 ft x4 laps Treatment Focus knee extension Comments cued taller posture, equal step length, //feet forward. decrease stride no rail support. stairs Description reciprocal stepping Device Used B HR S, R HR and QC on L SBA Level of Assistance S Distance/Duration 4 steps x4 sets Treatment Focus softer stepping, fluid movement, Comments cued softer stepping allowed decrease rigid stepping with cues walker Description with head turns Device Used FWW Level of Assistance SBA Distance/Duration 100ft Comments Pt decreased rigidity stepping , softer stepping, and improved knee extension advancement, improved stride length brii after HS stretch and balance activities. Neuro Re-Education Treatment Balance Activities blue foam Comments challenging (NBOS) dmitriy step Comments 1. single over back w/ light rail support 2. step to patterning w/ QC cued tall posturing, BIG rock reach Details fwd Equipment rail as needed 30% time Comments back leg heel raise wt shift fwd front leg toe raise wt shift back arm swing PT-OP-T Assessment and Plan Start: 12/15/22 15:43 Freq: Status: Active Protocol: Document 02/13/23 12:05 AMB (Rec: 02/13/23 12:51 AMB [id number]) Physical Therapy Assessment Goals Two Impairment Balance Short Term Goal (STG) Amanda Pappas will balance with NBOS for 30 seconds wihtout LOB. STG Duration MET [facility] Goal (LTG) Amanda Pappas will show improved dynamic balance by scoring at least 20/24 on the DGI. 01/27: 15 LTG Duration NOT MET One Impairment Gait Short Term Goal (STG) Amanda Pappas will ambulate without AD for 20 feet with SBA. 02/10/23: GOAL MET: able to STS and walk 15 ft x3 laps with improved march pivot step clearance without stop rest, slight wt shift but no LOB. TU sec, improved arms swing. STG Duration 4 weeks 02/10 GOAL met Supervisor Sawmill Goal (LTG) Amanda will ambulate with SBA with SPC for 500 feet while navigating turns without LOB. 01/27: Ambulated 50 feet with SPC but turns remain challenging. 02/10/23: progressin ft in 6 min w/ QC, improved arm swing, bigger stride during turns, couple small head turn with no LOB. 1 smaller turn round a chair slight retro lean but wt shift forward with QC and in LLE recovered stability. SBA She reports anterior R hip little strain end distance. LTG Duration progressing Assessment Summary Assessment Amanda Pappas attended physical therapy s/p CVA with resultant LE weakness and decreased gait tolerance. In her time in PT we recommended AFO which she tolerated well and helped her become more stable with her gait. She would continue to benefit from AD. For longer distances would be safest with FWW, but for short distance can consider SBQC. Pt feels she has appropriate exercises at this time for her to be able to independently progress at home and is therefore discharged. Physical Therapy Plan Frequency and Duration Frequency of Treatment 2x/Week Duration of treatment (weeks) 10 Plan of Care Start Date 12/16/22 Plan of Care End Date 02/24/23 Therapeutic Interventions Therapeutic Interventions Home Exercise Program,Manual Therapy,Neuromuscular Re- education,Self-Care/Home Management,Therapeutic Activities,Therapeutic Exercises Modalities Cold Pack/Ice Massage,Electric Stimulation,Hot Packs Discharge Physical Therapy Discharge Reasons Patient Request
== END 2023-04-07 14:34 | disposition home or self-care (01) ==
LOC: PHYS 12:00
PROVIDERS: Family Provider Student in an Organized Health Care Education/Training Program; PCP Student in an Organized Health Care Education/Training Program; Referring Provider Student in an Organized Health Care Education/Training Program; Visit Provider Student in an Organized Health Care Education/Training Program
DX: R29.898 Other symptoms and signs involving the musculoskeletal system (principal); R26.89 Other abnormalities of gait and mobility
CPT/HCPCS: 97110; 97112; 97116; 97161

== ENCOUNTER → 2023-04-03 09:29 | Outpatient (CLI) | payer MEDICARE, OTHER, SELFPAY ==
[2022-08-27 15:42] VITALS: BMI 25.3
[2023-04-03 10:35] LABS: Add Manual Diff / Slide Review NO; Basophils Absolute Auto 0 /uL (0-100); Basophils Percent Auto 0.5 % (0-2); Eosinophils Absolute Auto 100 /uL (0-450); Eosinophils Percent Auto 1.6 % (2-4); Hematocrit 36.5 % (36-46); Hemoglobin 12.4 g/dL (12.0-16.0); Lymphocytes Absolute Auto 1100 /uL (1100-4500); Lymphocytes Percent Auto 13.4 % (25-40); Mean Corpuscular Hemoglobin 31.9 PG (26-34); Mean Corpuscular Volume 93.9 fL (80-100); Monocytes Absolute Auto 500 /uL (0-900); Monocytes Percent Auto 5.6 % (3-14); Neutrophils Absolute Auto 6400 /uL (1500-7000); Neutrophils Percent Auto 78.9 % (50-75); Platelet Count 195 X10^3/uL (150-400); Red Blood Cell Count 3.88 X10^6/uL (4.0-5.2); Red Cell Distribution Width 13.8 % (11.6-14.8); White Blood Cell Count 8.1 X10^3/uL (4.5-11.0)
[2023-04-03 10:51] LABS: Albumin 4.2 g/dL (3.5-5.0); BUN Creatinine Ratio 25.4 (6-22); Blood Urea Nitrogen 36 mg/dL (7-17); Calcium 8.6 mg/dL (8.4-10.2); Carbon Dioxide 25 mmol/L (22-32); Chloride 104 mmol/L (98-107); Estimated Glomerular Filt Rate 37 mL/min (>60); Glucose 187 mg/dL (80-110); HEMOLYSIS < 15 (0-50); Potassium 4.9 mmol/L (3.4-5.1); Sodium 139 mmol/L (137-145); Uric Acid 8.4 mg/dL (2.5-6.2)
[2023-04-03 11:11] LABS: Vitamin D 25 Hydroxy (D3) 85.6 ng/mL (30.0-100.0)
[2023-04-03 11:33] LABS: Creatinine Urine Random 77.9 mg/dL
[2023-04-03 11:39] LABS: Microalbumi Creatinin Ratio Ur 10.2 ug/mg CR (<30); Microalbumin Urine Random 0.8 mg/dL (0-1.6)
[2023-04-04 09:30] LABS: Labcorp Hemoglobin (Hb) A1c 7.2 % (4.8-5.6)
== END ==
PROVIDERS: Family Provider Student in an Organized Health Care Education/Training Program; PCP Student in an Organized Health Care Education/Training Program; Referring Provider Internal Medicine Nephrology; Visit Provider Internal Medicine Nephrology
DX: N18.32 Chronic kidney disease, stage 3b (principal); E08.22 Diabetes mellitus due to underlying condition with diabetic chronic kidney disease
CPT/HCPCS: 36415; 80048; 82040; 82043; 82306; 82570; 83036; 83735; 84550; 85025

== ENCOUNTER → 2023-07-13 09:10 | Outpatient (CLI) | payer MEDICARE, OTHER, SELFPAY ==
[2022-08-27 15:42] VITALS: BMI 25.3
[2023-07-13 10:42] LABS: Cholesterol 145 mg/dL (140-199); HDL Cholesterol 63 mg/dL (40-60); LDL Cholesterol Calculated 56 mg/dL (<100); Triglycerides 128 mg/dL (35-150)
== END ==
PROVIDERS: Family Provider Student in an Organized Health Care Education/Training Program; PCP Family Medicine; Referring Provider Internal Medicine Cardiovascular Disease; Visit Provider Internal Medicine Cardiovascular Disease
DX: E78.2 Mixed hyperlipidemia (principal)
CPT/HCPCS: 36415; 80061

== ENCOUNTER → 2023-07-28 10:34 | Outpatient (CLI) | payer MEDICARE, OTHER, SELFPAY ==
[2022-08-27 15:42] VITALS: BMI 25.3
[2023-07-28 12:42] LABS: Hemoglobin A1C% w Est Avg Glu 7.5 % (4.0-6.0)
[2023-07-28 13:23] LABS: Blood Urea Nitrogen 35 mg/dL (7-17); Calcium 8.7 mg/dL (8.4-10.2); Carbon Dioxide 27 mmol/L (22-32); Chloride 103 mmol/L (98-107); Estimated Glomerular Filt Rate 43 mL/min (>60); Glucose 174 mg/dL (80-110); HEMOLYSIS < 15 (0-50); Potassium 4.9 mmol/L (3.4-5.1); Sodium 138 mmol/L (137-145)
== END ==
PROVIDERS: Family Provider Student in an Organized Health Care Education/Training Program; PCP Family Medicine; Referring Provider Family Medicine; Visit Provider Family Medicine
DX: N18.32 Chronic kidney disease, stage 3b (principal); E08.22 Diabetes mellitus due to underlying condition with diabetic chronic kidney disease; Z79.4 Long term (current) use of insulin
CPT/HCPCS: 36415; 80048; 83036

== ENCOUNTER → 2023-08-04 10:35 | Outpatient (CLI) | payer MEDICARE, OTHER, SELFPAY ==
[2022-08-27 15:42] VITALS: BMI 25.3
--- NOTE | 2023-08-04 | DI.US.S_ITS ---
PROCEDURE: US CAROTID DOPPLER BI INDICATIONS: STENOSIS TECHNIQUE: Color and pulse Doppler interrogation was performed of both carotid systems, with image documentation and velocity measurements. COMPARISON: None. FINDINGS: Stenosis calculations are based on SRU (Society of Radiologists in Ultras[employer]) criteria. Right side: Brachial blood pressure: 184/81 mm Hg. Common carotid artery peak systolic velocity: 66 cm/sec. Internal carotid artery peak systolic velocity: 219 cm/sec. Internal carotid artery end diastolic velocity: 79 cm/sec. External carotid artery peak systolic velocity: 134 cm/sec. ICA/CCA peak systolic ratio: 4.4 . Mcghee scale imaging description: There is a prominent soft plaque at the carotid bulb. Percent internal carotid artery stenosis: 70%-near occlusion. Vertebral artery: Flow direction is antegrade. Left side: Brachial blood pressure: 183/64 mm Hg. Common carotid artery peak systolic velocity: 79 cm/sec. Internal carotid artery peak systolic velocity: 101 cm/sec. Internal carotid artery end diastolic velocity: 30 cm/sec. External carotid artery peak systolic velocity: 81 cm/sec. ICA/CCA peak systolic ratio: 1.3. Mcghee scale imaging description: Mild atherosclerotic plaques. Percent internal carotid artery stenosis: Less than 50%. Vertebral artery: Flow direction is antegrade. IMPRESSION: 1. 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 There is a soft plaque at the carotid bulb. Consider CT or MRI neck angiogram for further evaluation. 2. Less than 50% left internal carotid artery stenosis. 3. Antegrade vertebral artery flow is bilaterally. Dictated by: Leatha Deleon M.D. on 08/04/2023 at 14:09 Approved by: Leatha Deleon M.D. on 08/04/2023 at 14:14
== END ==
PROVIDERS: Family Provider Student in an Organized Health Care Education/Training Program; PCP Family Medicine; Referring Provider Internal Medicine Cardiovascular Disease; Visit Provider Internal Medicine Cardiovascular Disease
DX: I65.23 Occlusion and stenosis of bilateral carotid arteries (principal)
CPT/HCPCS: 93880

== ENCOUNTER → 2023-09-16 15:21 | Outpatient (CLI) | payer MEDICARE, OTHER, SELFPAY ==
[2022-08-27 15:42] VITALS: BMI 25.3
--- NOTE | 2023-09-16 | DI.MG.S_ITS ---
BILATERAL DIGITAL SCREENING MAMMOGRAM 3D/2D WITH CAD: 09/16/2023 CLINICAL: Routine screening. Family history of breast cancer. Comparison is made to exams dated: 07/24/2022 mammogram, 07/04/2021 mammogram, 05/17/2020 mammogram, and 05/16/2019 mammogram - [facility]. Both breasts are heterogeneously dense, which may obscure small masses (category c / 51-75% glandular tissue). Current study was also evaluated with a Computer Aided Detection (CAD) system. There are benign vascular calcifications in both breasts. No significant masses, calcifications, or other findings are seen in either breast. There has been no significant interval change. IMPRESSION: BENIGN There is no mammographic evidence of malignancy. A 1 year screening mammogram is recommended. Based on the Tyrer Cuzick model (a risk assessment model) the patient's lifetime risk is 1.4% and her 10 year risk is 0.0%. According to the ACR, ACS, and NCCN guidelines, an annual breast MRI exam along with mammogram is recommended if the patient's lifetime risk is 20% or greater. This exam was interpreted at Station ID: [id number]. NOTE: For mammograms, a report in lay terms will be sent to the patient. Approximately 15% of breast malignancies will not be visualized mammographically. In the management of a palpable breast mass, a negative mammogram must not discourage biopsy of a clinically suspicious lesion. Electronically Signed By: Catrachito carmona/maral:09/17/2023 13:38:14 letter sent: Normal Exam ACR BI-RADS Category 2: Benign Finding(s) 3342F
== END ==
PROVIDERS: Family Provider Student in an Organized Health Care Education/Training Program; PCP Family Medicine; Referring Provider Family Medicine; Visit Provider Family Medicine
DX: Z12.31 Encounter for screening mammogram for malignant neoplasm of breast (principal); Z80.3 Family history of malignant neoplasm of breast
CPT/HCPCS: 77063; 77067

== ENCOUNTER → 2023-10-14 12:43 | Outpatient (CLI) | payer MEDICARE, OTHER, SELFPAY ==
[2022-08-27 15:42] VITALS: BMI 25.3
[2023-10-14 15:21] LABS: Albumin 4.1 g/dL (3.5-5.0); BUN Creatinine Ratio 17.6 (6-22); Blood Urea Nitrogen 22 mg/dL (7-17); Calcium 8.9 mg/dL (8.4-10.2); Carbon Dioxide 26 mmol/L (22-32); Chloride 103 mmol/L (98-107); Estimated Glomerular Filt Rate 43 mL/min (>60); Glucose 155 mg/dL (80-110); HEMOLYSIS < 15 (0-50); Magnesium 1.6 mg/dL (1.6-2.3); Potassium 4.4 mmol/L (3.4-5.1); Sodium 138 mmol/L (137-145); Uric Acid 7.6 mg/dL (2.5-6.2)
[2023-10-14 16:27] LABS: Creatinine Urine Random 67.1 mg/dL
[2023-10-14 16:30] LABS: Microalbumi Creatinin Ratio Ur 230.9 ug/mg CR (<30); Microalbumin Urine Random 15.5 mg/dL (0-1.6)
[2023-10-14 16:42] LABS: Vitamin D 25 Hydroxy (D3) 56.1 ng/mL (30.0-100.0)
[2023-10-16 07:10] LABS: Parathyroid Hormone Int 67 pg/mL (15-65)
== END ==
PROVIDERS: Family Provider Student in an Organized Health Care Education/Training Program; PCP Family Medicine; Referring Provider Internal Medicine Nephrology; Visit Provider Internal Medicine Nephrology
DX: N18.32 Chronic kidney disease, stage 3b (principal)
CPT/HCPCS: 36415; 80048; 82040; 82043; 82306; 82570; 83735; 83970; 84100; 84550

== ENCOUNTER → 2024-01-27 14:26 | Outpatient (CLI) | payer MEDICARE, OTHER, SELFPAY ==
[2022-08-27 15:42] VITALS: BMI 25.3
[2024-01-27 15:35] LABS: Hemoglobin A1C% w Est Avg Glu 7.1 % (4.0-6.0)
[2024-01-27 15:57] LABS: Uric Acid 9.4 mg/dL (2.5-6.2)
== END ==
PROVIDERS: Family Provider Student in an Organized Health Care Education/Training Program; PCP Family Medicine; Referring Provider Family Medicine; Visit Provider Family Medicine
DX: E08.22 Diabetes mellitus due to underlying condition with diabetic chronic kidney disease (principal); N18.32 Chronic kidney disease, stage 3b; M10.9 Gout, unspecified; Z79.4 Long term (current) use of insulin
CPT/HCPCS: 36415; 83036; 84550

== ENCOUNTER → 2024-04-26 10:19 | Outpatient (CLI) | payer MEDICARE, OTHER, SELFPAY ==
[2024-02-02 10:45] VITALS: BMI 25.3
[2024-04-26 12:18] LABS: Albumin 3.9 g/dL (3.5-5.0); Blood Urea Nitrogen 25 mg/dL (7-17); Calcium 8.7 mg/dL (8.4-10.2); Carbon Dioxide 26 mmol/L (22-32); Chloride 106 mmol/L (98-107); Estimated Glomerular Filt Rate 43 mL/min (>60); Glucose 167 mg/dL (80-110); HEMOLYSIS < 15 (0-50); Magnesium 1.8 mg/dL (1.6-2.3); Phosphorous 3.7 mg/dL (2.8-4.1); Potassium 4.2 mmol/L (3.4-5.1); Sodium 139 mmol/L (137-145)
[2024-04-26 12:34] LABS: Vitamin D 25 Hydroxy (D3) 61.4 ng/mL (30.0-100.0)
[2024-04-26 16:01] LABS: Creatinine Urine Random 93.64 mg/dL
[2024-04-26 16:06] LABS: Microalbumin Urine Random 4.9 mg/dL (0-1.6)
[2024-04-27 05:23] LABS: Parathyroid Hormone Int 65 pg/mL (15-65)
== END ==
PROVIDERS: Family Provider Student in an Organized Health Care Education/Training Program; PCP Family Medicine; Referring Provider Internal Medicine Nephrology; Visit Provider Internal Medicine Nephrology
DX: N18.31 Chronic kidney disease, stage 3a (principal)
CPT/HCPCS: 36415; 80048; 82040; 82043; 82306; 82570; 83735; 83970; 84100

== ENCOUNTER 2024-05-27 14:30 | Outpatient (RCR) | payer MEDICARE, OTHER, SELFPAY ==
[2024-02-02 10:45] VITALS: BMI 25.3
--- NOTE | 2024-03-08 11:13 | PT.OIE ---
Current Diagnoses Other abnormalities of gait and mobility (03/08/24) Other lack of coordination (03/08/24) Other symptoms and signs involving the musculoskeletal system (03/08/24) Weakness (03/08/24) Past Medical History (Last Updated 07/28/23 @ 10:18 by Andrew Leo DO) Anxiety Cellulitis of hand, right Foot deformity Neuropathy Panic attack Vitamin D deficiency Past Surgical History (Last Reviewed 02/23/22 @ 22:07 by HAYLEE Ratliff) History of History of ectopic Visit Care Team Role Provider Type Sid Bush MD Family Provider Non-Staff Specialty: Internal Medicine Address: [address] [place] [address], [facility] [address] [place], [place], [address] Email: Shannan Lovett DO Attending Provider Physician Primary Care Provider Referring Provider Specialty: Family Practice Address: [address] [place] [address], [facility] [address] [place], [address] Email: [email or web address] Physical Therapy Initial Evaluation PT-OP-A Visit Information Start: 03/08/24 07:29 Freq: Status: Active Protocol: Document 03/08/24 09:02 NM (Rec: 03/08/24 09:49 NM [id number]) Out-Patient Physical Therapy Visit Information Visit Information Visit Type Initial Evaluation Visit Note KX after 19 visits Visit Start Time 09:02 Visit Stop Time 09:45 Visit Number 1 Evaluation Information Evaluation Date 03/08/24 Precautions Precautions fall risk, monitor vitals PT-OP-B Current Condition Start: 03/08/24 07:29 Freq: Status: Active Protocol: Document 03/08/24 09:02 NM (Rec: 03/08/24 09:49 NM [id number]) Current Condition History of Current Condition Current Complaints weakness, decreased mobility, balance History of Current Condition Pt presents to PT with balance and gait abnormalities. She is using a trifold 3WW but has also has 4WW that folds. She live with her , who assists to care for her. She reports difficulty with ambulation. She has had previous PT several years ago for same condition. Pt reports that after last PT, she was able to walk without falling. Uses walker for ambulation in house, otherwise has to reach for things to stabilize. She has had 1 fall a few weeks ago , when ambulating with her walker when she lost her balance and fell on her side. Pt also has a 3 prong cane occasionally to walk. She reports that she has a fear of falling. Pt reports that she has had a stroke, that affected her L side; states that she can use her leg just as well as when she could before. Thinks that she has had the stroke 6 months ago. Pt reports no numbess in her legs. 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 Denies hx of osteoporosis, dizziness, vertigo, no fractures. She is blood pressure medication. Prior Treatments and Tests previous PT for same condition Treatment Goals Patient/Caregiver Goals walk without an AD Current Functional Impairments (Reported) Functional Limitations- ADL's dressing sitting down IND Functional Limitations- Mobility/Gait uses AD to ambulate stairs leading up to house (R rails) and in the home (b rails) PT-OP-C Subjective Start: 03/08/24 07:29 Freq: Status: Active Protocol: Document 03/08/24 09:02 NM (Rec: 03/08/24 09:49 NM [id number]) OP-PT Subjective Patient Comments Patient Comments see hx above for pt report Patient Questionnaires ABC- Activity Specific Balance Confidence Scale ABC Score 640 or 40% Dizziness Handicap Inventory DHI Score 42 (moderate) Other Questionnaire Name and Score Falls Efficacy Scale- did not complete PT-OP-D Balance Start: 03/08/24 07:29 Freq: Status: Active Protocol: Document 03/08/24 09:02 NM (Rec: 03/08/24 09:49 NM [id number]) Balance Tests Angeles Balance Test Angeles Balance Test Score 19/56 PT-OP-E Functional Tests Start: 03/08/24 07:29 Freq: Status: Active Protocol: Document 03/08/24 09:02 NM (Rec: 03/08/24 09:49 NM [id number]) Functional Tests 2 Minute Walk Test Distance 206 ft Device Used 3WW 30 Second Sit to Stand Test Score 9 STS Comments uses HS to stabilize; no hands ; 18 chair Five Times Sit to Stand Test Score 17 seconds Comments uses HS to stabilize; 18 chair Timed Up and Go (TUG) Score 22.3 sec Comments 3WW PT-OP-F Manual Assessment Start: 03/08/24 07:29 Freq: Status: Active Protocol: Document 03/08/24 09:02 NM (Rec: 03/08/24 09:49 NM [id number]) Manual Assessments Soft Tissue Assessment Soft Tissue Mobility Assessment Decreased HS and heel cord length bilaterally Joint Mobility Assessment Joint Mobility Assessment Decreased ankle mobility, hip mobility PT-OP-G Mobility & Gait Start: 03/08/24 07:29 Freq: Status: Active Protocol: Document 03/08/24 09:02 NM (Rec: 03/08/24 10:58 NM [id number]) OP Gait Assessment Gait Gait Assistance Required: Standby Assistance Distance (Feet) 206 Assistive Devices Assistive Device Gait Belt,4 Wheeled Walker Gait Deviations General Gait Pattern Decreased Stride Length, Decreased Feet Clearance, Flexed Trunk Factors Limiting Gait Function Factors Limiting Gait Function Decreased Sensation,Decreased Strength,Limited Range of Motion,Poor Balance Comments Gait Comments Demonstrates B hip ER, decreased foot clearance. Does not fully extend knees with gait and shuffles feet. Has increased trunk sway, less foot clearance and shorter stance time on LLE. Holds walker in front of body vs closer to trunk Using 3 wheeled walker PT-OP-H Neuro Start: 03/08/24 07:29 Freq: Status: Active Protocol: Document 03/08/24 09:02 NM (Rec: 03/08/24 09:49 NM [id number]) Coordination Evaluation Upper Extremity Tests Left Pronation/Supination Test Normal Performance Right Pronation/Supination Test Normal Performance Lower Extremity Tests Left Heel on Augustin Test Normal Performance Foot Tapping Test Normal Performance Right Heel on Augustin Test Normal Performance Foot Tapping Test Normal Performance Vital Signs Comments Vital Signs Comments seated R arm, restin/72 mmHg, 90 spO2, 61 bpm PT-OP-J Posture/Palpation/Skin Start: 03/08/24 07:29 Freq: Status: Active Protocol: Document 03/08/24 09:02 NM (Rec: 03/08/24 09:49 NM [id number]) Posture Evaluation Position Standing Head/C-Spine Posture Forward Head T-Spine Posture Increased Kyphosis L-Spine Posture Increased Lordosis Pelvis Posture Anteriorly Tilted Hip Posture (L) Externally Rotated,(R) Externally Rotated Knee Posture (L) Genu Valgus,(R) Genu Valgus,(L) Excess Flexion,(R) Excess Flexion Ankle/Foot Posture (L) Supinated,(R) Supinated Comments Posture Comments Demos forward PAULO, in standing pt has L trunk lean. Kyphotic PT-OP-K Range of Motion Start: 03/08/24 07:29 Freq: Status: Active Protocol: Document 03/08/24 09:02 NM (Rec: 03/08/24 10:20 NM [id number]) Hip Goniometric Range of Motion Hip ROM Limitations Comments Limited hip flexion ROM bilaterally, did not formally measure Knee Goniometric Range of Motion Knee ROM Limitations Comments Limited hamstring ROM bilaterally, did not formally measure Ankle and Foot Goniometric Range of Motion Ankle and Foot ROM Limitations Comments Limited ankle dorsiflexion ROM bilaterally, did not formally measure PT-OP-M Strength Start: 03/08/24 07:29 Freq: Status: Active Protocol: Document 03/08/24 09:02 NM (Rec: 03/08/24 09:49 NM [id number]) Hip Strength Hip Manual Muscle Testing Right Flexion (L2) 4- Good- Extension (S1) 4- Good- Abduction 4- Good- Adduction 4- Good- External Rotation 4- Good- Internal Rotation 4- Good- Left Flexion (L2) 3+ Fair+ Extension (S1) 3+ Fair+ Abduction 3+ Fair+ Adduction 3+ Fair+ External Rotation 3+ Fair+ Internal Rotation 3+ Fair+ Knee Strength Knee Manual Muscle Testing Right Flexion (S2) 4- Good- Extension (L3) 4- Good- Left Flexion (S2) 4- Good- Extension (L3) 4- Good- Ankle/Foot Strength Ankle and Foot Manual Muscle Testing Right Dorsiflexion (L4) 4 Good Plantarflexion (S1) 4 Good Inversion 4 Good Eversion (S1) 4 Good Comments measured in sitting Left Dorsiflexion (L4) 4 Good Plantarflexion (S1) 4 Good Inversion 4 Good Eversion (S1) 4 Good Comments measured in sitting PT-OP-Q Treatments Start: 03/08/24 07:29 Freq: Status: Active Protocol: Document 03/08/24 09:02 NM (Rec: 03/08/24 09:49 NM [id number]) Self-Care/Home Management Treatment Education Patient Education Fall Risk Other Education 8 minutes- Education on safety with shoes (no slip-ons, closed heeled and toed), lights on at night to decrease fall risk, limiting clutter and objects on floor, not waiting until last minute, use of AD at all times at home. Recommended 4WW over 3WW or spc; however, pt would benefit from more stable AD PT-OP-T Assessment and Plan Start: 03/08/24 07:29 Freq: Status: Active Protocol: Document 03/08/24 09:02 NM (Rec: 03/08/24 09:49 NM [id number]) Physical Therapy Assessment Rehab Potential Rehabilitation Potential Fair Evaluation Complexity Number of Personal Factors/Comorbidities 3 or More Number of Body Systems Impaired 1-2 Clinical Presentation at Evaluation Stable Impairments Impairments Activity Tolerance,Balance, Functional Activities, Functional Mobility,Gait,Pain, Posture,ROM,Sensation,Soft Tissue Mobility,Strength, Transfers Other Concerns Barriers to Rehabilitation Pt has several co-morbidities, including neuropathy, hx of stroke, high blood pressure. She is a poor historian and did not remember having a stroke until prompted. Pt has had several falls and relies on her for assistance, including with ADLs and mobility. He did not attend the evaluation. Pt demonstrates poor awareness of limitations and current impairments Goals Five Impairment transfers Impairment 5 x STS 17 seconds Short Term Goal (STG) Pt will be able to perform at least 10 sit to stands without compensation and without UE assist in order to demonstrate improved BLE strength, initial balance, and safety with transfers STG Duration 6 weeks Senior Living Goal (LTG) Pt will be able to perform 5x STS in at least 15 seconds or less without compensation or UE assist in order to meet age -related norms, improve BLE strength, initial balance, and safety with transfers LTG Duration 12 weeks Four Impairment ambulation distance Impairment 2 MWT 206 ft with 3 wheeled walker Short Term Goal (STG) Pt will be able to ambulate at least 40 feet further (MDC) on 2 MWT using LRAD in order to demonstrate improved BLE strength, endurance, and activity tolerance. STG Duration 6 weeks Wire Saw Operator Goal (LTG) Pt will be able to complete 6 MWT using LRAD in order to demonstrate improved BLE strength, endurance, and activity tolerance. LTG Duration 12 weeks Three Impairment fear of falling Wire Saw Operator Goal (LTG) Pt will improve ABC score to > 60% in order to demonstrate improved confidence related to not falling during ADLs/IADLs and during gait LTG Duration 12 weeks Two Impairment balance, static, fall risk Impairment Angeles 19/56 Short Term Goal (STG) Pt will increase Angeles balance score > 30/56 in order to demonstate improved balance during transfers and gait for improved safety and to decrease fall risk with AD use STG Duration 6 weeks Wire Saw Operator Goal (LTG) Pt will increase Angeles balance score > 38/56 in order to demonstate improved balance during transfers and gait for improved safety and to decrease fall risk with AD use LTG Duration 12 weeks One Impairment balance, gait Impairment TUG 22.3 seconds with 3WW Short Term Goal (STG) Pt will decrease TUG time to less than 18 seconds with LRAD in order to demonstrate improved gait speed and decreased fall risk during household ambulation STG Duration 6 weeks Senior Living Goal (LTG) Pt will decrease TUG time to less than 12 seconds with LRAD in order to demonstrate improved gait speed and decreased fall risk during community ambulation LTG Duration 12 weeks Assessment Summary Assessment Pt is a 83 y.o. female presenting with balance and gait abnormalities, in addition to BLE weakness. She has a PMH of CVA, affecting the L side. Pt currently uses an AD for ambulation; she primarily has several four/ three wheel walkers and an spc . She has impairments in ROM, strength, balance, gait, speed , falls, and activity tolerance. Currently, her BLE strength is limited, primarily on her L side. Pt's gait speed is slow with limited foot clearance, and she has increased sway and fatigues easily even with an AD. Due to poor activity tolerance and BLE weakness, pt only able to ambulate for 2 minutes, ambultaing 206 ft with her 3 wheeled-walker. Pt's Angeles score is 19/56 and her TUG scores are 22 seconds, indicating high fall risk and need for AD. Her blood pressure at rest is also high 152/72 mmHg; PT recommended pt follow up with PCP due to elevation. PT educated pt on exam findings and plan of care , in addition to providing education to pt on strategies to decrease fall risk. At this time, PT recommending more stable AD for safety. Pt would benefit from skilled PT for strengthening, gait, and balance training in order to decrease fall risk, improve activity tolerance, and increase safety along with decreased caregiver burden. Physical Therapy Plan Frequency and Duration Frequency of Treatment 2x/Week Duration of treatment (weeks) 12 Plan of Care Start Date 03/08/24 Plan of Care End Date 06/03/24 Therapeutic Interventions Therapeutic Interventions Balance Training,Gait Training ,Home Exercise Program,Joint Mobilizations,Manual Therapy, Neuromuscular Re-education, Orthotic/Prosthetic Management ,Patient/Caregiver Education, Self-Care/Home Management,Soft Tissue Mobilization,Taping, Therapeutic Activities, Therapeutic Exercises Modalities Cold Pack/Ice Massage,Hot Packs Next Visit Focus/Plan Next Note Type Treatment Note Next Visit Plan STS training (watch for HS use ), LAQ, hip abd, side steps with support HS and calf stretching, ankle strengthening POC: balance, gait with LRAD on stable and unstable surfaces, resisted ambulation
--- NOTE | 2024-03-11 12:12 | PT.OTN ---
Current Diagnoses Other abnormalities of gait and mobility (03/11/24) Other lack of coordination (03/11/24) Other symptoms and signs involving the musculoskeletal system (03/11/24) Weakness (03/11/24) Physical Therapy Treatment Note PT-OP-A Visit Information Start: 03/08/24 07:29 Freq: Status: Active Protocol: Document 03/11/24 08:46 NM (Rec: 03/11/24 08:47 NM [id number]) Out-Patient Physical Therapy Visit Information Visit Information Visit Type Treatment Note Visit Note KX after 19 visits Visit Start Time 09:48 Visit Stop Time 10:28 Visit Number 2 Evaluation Information Evaluation Date 03/08/24 Precautions Precautions fall risk, monitor vitals PT-OP-B Current Condition Start: 03/08/24 07:29 Freq: Status: Active Protocol: Document 03/08/24 09:02 NM (Rec: 03/08/24 09:49 NM [id number]) Current Condition History of Current Condition Current Complaints weakness, decreased mobility, balance History of Current Condition Pt presents to PT with balance and gait abnormalities. She is using a trifold 3WW but has also has 4WW that folds. She live with her , who assists to care for her. She reports difficulty with ambulation. She has had previous PT several years ago for same condition. Pt reports that after last PT, she was able to walk without falling. Uses walker for ambulation in house, otherwise has to reach for things to stabilize. She has had 1 fall a few weeks ago , when ambulating with her walker when she lost her balance and fell on her side. Pt also has a 3 prong cane occasionally to walk. She reports that she has a fear of falling. Pt reports that she has had a stroke, that affected her L side; states that she can use her leg just as well as when she could before. Thinks that she has had the stroke 6 months ago. Pt reports no numbess in her legs. 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 Denies hx of osteoporosis, dizziness, vertigo, no fractures. She is blood pressure medication. Prior Treatments and Tests previous PT for same condition Treatment Goals Patient/Caregiver Goals walk without an AD Current Functional Impairments (Reported) Functional Limitations- ADL's dressing sitting down IND Functional Limitations- Mobility/Gait uses AD to ambulate stairs leading up to house (R rails) and in the home (b rails) PT-OP-C Subjective Start: 03/08/24 07:29 Freq: Status: Active Protocol: Document 03/11/24 08:46 NM (Rec: 03/11/24 08:47 NM [id number]) OP-PT Subjective Patient Comments Patient Comments Pt reports that she is doing well after evaluation. Lost her best friend so she is sad. She does not recall wearing an AFO. Presents with FWW that folds, has to lift it up to get through her doors PT-OP-D Balance Start: 03/08/24 07:29 Freq: Status: Active Protocol: Document 03/08/24 09:02 NM (Rec: 03/08/24 09:49 NM [id number]) Balance Tests Angeles Balance Test Angeles Balance Test Score 19/56 PT-OP-E Functional Tests Start: 03/08/24 07:29 Freq: Status: Active Protocol: Document 03/08/24 09:02 NM (Rec: 03/08/24 09:49 NM [id number]) Functional Tests 2 Minute Walk Test Distance 206 ft Device Used 3WW 30 Second Sit to Stand Test Score 9 STS Comments uses HS to stabilize; no hands ; 18 chair Five Times Sit to Stand Test Score 17 seconds Comments uses HS to stabilize; 18 chair Timed Up and Go (TUG) Score 22.3 sec Comments 3WW PT-OP-F Manual Assessment Start: 03/08/24 07:29 Freq: Status: Active Protocol: Document 03/08/24 09:02 NM (Rec: 03/08/24 09:49 NM [id number]) Manual Assessments Soft Tissue Assessment Soft Tissue Mobility Assessment Decreased HS and heel cord length bilaterally Joint Mobility Assessment Joint Mobility Assessment Decreased ankle mobility, hip mobility PT-OP-G Mobility & Gait Start: 03/08/24 07:29 Freq: Status: Active Protocol: Document 03/08/24 09:02 NM (Rec: 03/08/24 10:58 NM [id number]) OP Gait Assessment Gait Gait Assistance Required: Standby Assistance Distance (Feet) 206 Assistive Devices Assistive Device Gait Belt,4 Wheeled Walker Gait Deviations General Gait Pattern Decreased Stride Length, Decreased Feet Clearance, Flexed Trunk Factors Limiting Gait Function Factors Limiting Gait Function Decreased Sensation,Decreased Strength,Limited Range of Motion,Poor Balance Comments Gait Comments Demonstrates B hip ER, decreased foot clearance. Does not fully extend knees with gait and shuffles feet. Has increased trunk sway, less foot clearance and shorter stance time on LLE. Holds walker in front of body vs closer to trunk Using 3 wheeled walker PT-OP-H Neuro Start: 03/08/24 07:29 Freq: Status: Active Protocol: Document 03/08/24 09:02 NM (Rec: 03/08/24 09:49 NM [id number]) Coordination Evaluation Upper Extremity Tests Left Pronation/Supination Test Normal Performance Right Pronation/Supination Test Normal Performance Lower Extremity Tests Left Heel on Augustin Test Normal Performance Foot Tapping Test Normal Performance Right Heel on Augustin Test Normal Performance Foot Tapping Test Normal Performance Vital Signs Comments Vital Signs Comments seated R arm, restin/72 mmHg, 90 spO2, 61 bpm PT-OP-J Posture/Palpation/Skin Start: 03/08/24 07:29 Freq: Status: Active Protocol: Document 03/08/24 09:02 NM (Rec: 03/08/24 09:49 NM [id number]) Posture Evaluation Position Standing Head/C-Spine Posture Forward Head T-Spine Posture Increased Kyphosis L-Spine Posture Increased Lordosis Pelvis Posture Anteriorly Tilted Hip Posture (L) Externally Rotated,(R) Externally Rotated Knee Posture (L) Genu Valgus,(R) Genu Valgus,(L) Excess Flexion,(R) Excess Flexion Ankle/Foot Posture (L) Supinated,(R) Supinated Comments Posture Comments Demos forward PAULO, in standing pt has L trunk lean. Kyphotic PT-OP-K Range of Motion Start: 03/08/24 07:29 Freq: Status: Active Protocol: Document 03/08/24 09:02 NM (Rec: 03/08/24 10:20 NM [id number]) Hip Goniometric Range of Motion Hip ROM Limitations Comments Limited hip flexion ROM bilaterally, did not formally measure Knee Goniometric Range of Motion Knee ROM Limitations Comments Limited hamstring ROM bilaterally, did not formally measure Ankle and Foot Goniometric Range of Motion Ankle and Foot ROM Limitations Comments Limited ankle dorsiflexion ROM bilaterally, did not formally measure PT-OP-M Strength Start: 03/08/24 07:29 Freq: Status: Active Protocol: Document 03/08/24 09:02 NM (Rec: 03/08/24 09:49 NM [id number]) Hip Strength Hip Manual Muscle Testing Right Flexion (L2) 4- Good- Extension (S1) 4- Good- Abduction 4- Good- Adduction 4- Good- External Rotation 4- Good- Internal Rotation 4- Good- Left Flexion (L2) 3+ Fair+ Extension (S1) 3+ Fair+ Abduction 3+ Fair+ Adduction 3+ Fair+ External Rotation 3+ Fair+ Internal Rotation 3+ Fair+ Knee Strength Knee Manual Muscle Testing Right Flexion (S2) 4- Good- Extension (L3) 4- Good- Left Flexion (S2) 4- Good- Extension (L3) 4- Good- Ankle/Foot Strength Ankle and Foot Manual Muscle Testing Right Dorsiflexion (L4) 4 Good Plantarflexion (S1) 4 Good Inversion 4 Good Eversion (S1) 4 Good Comments measured in sitting Left Dorsiflexion (L4) 4 Good Plantarflexion (S1) 4 Good Inversion 4 Good Eversion (S1) 4 Good Comments measured in sitting PT-OP-Q Treatments Start: 03/08/24 07:29 Freq: Status: Active Protocol: Document 03/11/24 08:46 NM (Rec: 03/11/24 08:47 NM [id number]) Therapeutic Exercises Sitting Exercises hip abduction Sitting Exercise Name 1. isometric, 2. clams Side bilateral Resistance level 2 band around thighs Equipment Used mirror for visual feedback Reps/Minutes 1. 60, 2. 2x10 Comments cued for trunk posture, stationary feet LAQ Side bilateral Resistance AROM> level 1 band at ankles Reps/Minutes 2x10x3 hold Comments cued TKE; appropriate muscle activation ankle eversion Side left Equipment Used self tactile on knee to prevent hip rotation Reps/Minutes 2x8 with 1 sec pause at end Comments challenging, limited ROM due to weakness; tactile/verbal cues from PT ankle DF Side bilateral Resistance level 2 band Equipment Used mirror for visual feedback Reps/Minutes 2x10 Comments cued for neutral ankle instead of inversion Standing Exercises calf stretch Side bilateral Equipment Used MALATHI Reps/Minutes 2x30 Comments good feedback for stretch Therapeutic Activity Therapeutic Activity sit to stand Reps/Minutes 2x8 reps Comments Verbal cues for form, reaching for FWW (without use to stand ) for anterior weight shift, feet position. Band around thighs to limit valgus. Mirror for visual feedback. With cueing to scoot forward, does not use HS to assist on chair. transfers Name with FWW and spc Reps/Minutes multiple reps Comments Moderate cues to keep FWW closer when backing up to chair, wider turns before backing up for safety. Less stable with spc and requires more cues for safety; takes many smaller steps while turning and very visually dependent on feet Gait Training Gait Activity spc Level of Assistance CGA Distance/Duration 25 ft Treatment Focus safety as pt wants to use spc at home Comments Recommended against spc use at this time due to decrease stability demonstrated with spc vs FWW. Uses in R hand, takes very small steps, less foot clearance and slower speed FWW Level of Assistance close SBA Surface stable Distance/Duration 150 ft Treatment Focus endurance, heel strike, foot clearance, FWW safety with turns and transfers Comments requires increased time. Demos heavy midfoot strike, even with cueing for heel > toe. Does not clear feet, no ankle DF with ambulation. Cued for safety on turns, wider turns with slightly larger steps Self-Care/Home Management Treatment Education Patient Education Home Exercise Program Other Education HEP: hip abd in sitting, LAQ; issued bands PT-OP-T Assessment and Plan Start: 03/08/24 07:29 Freq: Status: Active Protocol: Document 03/11/24 08:46 NM (Rec: 03/11/24 08:47 NM [id number]) Physical Therapy Assessment Goals Five Impairment transfers Impairment 5 x STS 17 seconds Short Term Goal (STG) Pt will be able to perform at least 10 sit to stands without compensation and without UE assist in order to demonstrate improved BLE strength, initial balance, and safety with transfers STG Duration 6 weeks Sound Effects Manager Goal (LTG) Pt will be able to perform 5x STS in at least 15 seconds or less without compensation or UE assist in order to meet age -related norms, improve BLE strength, initial balance, and safety with transfers LTG Duration 12 weeks Four Impairment ambulation distance Impairment 2 MWT 206 ft with 3 wheeled walker Short Term Goal (STG) Pt will be able to ambulate at least 40 feet further (MDC) on 2 MWT using LRAD in order to demonstrate improved BLE strength, endurance, and activity tolerance. STG Duration 6 weeks Detention Goal (LTG) Pt will be able to complete 6 MWT using LRAD in order to demonstrate improved BLE strength, endurance, and activity tolerance. LTG Duration 12 weeks Three Impairment fear of falling Sound Effects Manager Goal (LTG) Pt will improve ABC score to > 60% in order to demonstrate improved confidence related to not falling during ADLs/IADLs and during gait LTG Duration 12 weeks Two Impairment balance, static, fall risk Impairment Angeles 19/56 Short Term Goal (STG) Pt will increase Angeles balance score > 30/56 in order to demonstate improved balance during transfers and gait for improved safety and to decrease fall risk with AD use STG Duration 6 weeks Sound Effects Manager Goal (LTG) Pt will increase Angeles balance score > 38/56 in order to demonstate improved balance during transfers and gait for improved safety and to decrease fall risk with AD use LTG Duration 12 weeks One Impairment balance, gait Impairment TUG 22.3 seconds with 3WW Short Term Goal (STG) Pt will decrease TUG time to less than 18 seconds with LRAD in order to demonstrate improved gait speed and decreased fall risk during household ambulation STG Duration 6 weeks Sound Effects Manager Goal (LTG) Pt will decrease TUG time to less than 12 seconds with LRAD in order to demonstrate improved gait speed and decreased fall risk during community ambulation LTG Duration 12 weeks Assessment Summary Assessment Pt tolerated session well. Initiated BLE strengthening. Pt has tendency to compensate with trunk and hips, primarily during hip abduction, LAQ, and ankle eversion. Due to pt tendency to invert foot as neutral position, initiated ankle eversion. Pt compensates extensively even with only ROM, tactile and verbal feedback. Educated on safety with FWW, especially to have it completely locked prior to ambulating or transfering. During STS, pt able to perform with moderate cues for form, without hamstring assistance on back of chair. However, demos L trunk lean, improved with visual feedback. Pt demonstrates less stability spc during gait and transfers. Recommended use of FWW at home for safety. Has heavy midfoot strike with gait, limited foot clearance. Pt does not recall using AFO previously provided in PT several years ago. She would benefit from further skilled PT to decrease fall risk, improve balance and BLE strength. Physical Therapy Plan Frequency and Duration Frequency of Treatment 2x/Week Duration of treatment (weeks) 12 Plan of Care Start Date 03/08/24 Plan of Care End Date 06/03/24 Therapeutic Interventions Therapeutic Interventions Balance Training,Gait Training ,Home Exercise Program,Joint Mobilizations,Manual Therapy, Neuromuscular Re-education, Orthotic/Prosthetic Management ,Patient/Caregiver Education, Self-Care/Home Management,Soft Tissue Mobilization,Taping, Therapeutic Activities, Therapeutic Exercises Modalities Cold Pack/Ice Massage,Hot Packs Next Visit Focus/Plan Next Note Type Treatment Note Next Visit Plan Review ankle eversion (add to HEP if able). Cont strengthening. STS training ( watch for HS use), LAQ, hip abd, side steps with support, biodex. If brings spc, then trial gait training for household amb only if safe HS and calf stretching, ankle strengthening POC: balance, gait with LRAD on stable and unstable surfaces, resisted ambulation
--- NOTE | 2024-03-16 16:23 | PT.OTN ---
Current Diagnoses Other abnormalities of gait and mobility (03/16/24) Other lack of coordination (03/16/24) Other symptoms and signs involving the musculoskeletal system (03/16/24) Weakness (03/16/24) Physical Therapy Treatment Note PT-OP-A Visit Information Start: 03/08/24 07:29 Freq: Status: Active Protocol: Document 03/16/24 14:34 AB (Rec: 03/16/24 16:23 AB [id number]) Out-Patient Physical Therapy Visit Information Visit Information Visit Type Treatment Note Visit Note KX after 19 visits Visit Start Time 02:35 Visit Stop Time 15:17 Visit Number 3 Number of HI TEACHER Visits 1 Evaluation Information Evaluation Date 03/08/24 Precautions Precautions fall risk, monitor vitals PT-OP-B Current Condition Start: 03/08/24 07:29 Freq: Status: Active Protocol: Document 03/08/24 09:02 NM (Rec: 03/08/24 09:49 NM [id number]) Current Condition History of Current Condition Current Complaints weakness, decreased mobility, balance History of Current Condition Pt presents to PT with balance and gait abnormalities. She is using a trifold 3WW but has also has 4WW that folds. She live with her , who assists to care for her. She reports difficulty with ambulation. She has had previous PT several years ago for same condition. Pt reports that after last PT, she was able to walk without falling. Uses walker for ambulation in house, otherwise has to reach for things to stabilize. She has had 1 fall a few weeks ago , when ambulating with her walker when she lost her balance and fell on her side. Pt also has a 3 prong cane occasionally to walk. She reports that she has a fear of falling. Pt reports that she has had a stroke, that affected her L side; states that she can use her leg just as well as when she could before. Thinks that she has had the stroke 6 months ago. Pt reports no numbess in her legs. 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 Denies hx of osteoporosis, dizziness, vertigo, no fractures. She is blood pressure medication. Prior Treatments and Tests previous PT for same condition Treatment Goals Patient/Caregiver Goals walk without an AD Current Functional Impairments (Reported) Functional Limitations- ADL's dressing sitting down IND Functional Limitations- Mobility/Gait uses AD to ambulate stairs leading up to house (R rails) and in the home (b rails) PT-OP-C Subjective Start: 03/08/24 07:29 Freq: Status: Active Protocol: Document 03/16/24 14:34 AB (Rec: 03/16/24 16:23 AB [id number]) OP-PT Subjective Patient Comments Patient Comments Patient reports she is the same. BP 158/66 HR 66 right UE seated, reports she took her medications today. PT-OP-D Balance Start: 03/08/24 07:29 Freq: Status: Active Protocol: Document 03/08/24 09:02 NM (Rec: 03/08/24 09:49 NM [id number]) Balance Tests Angeles Balance Test Angeles Balance Test Score 19/56 PT-OP-E Functional Tests Start: 03/08/24 07:29 Freq: Status: Active Protocol: Document 03/08/24 09:02 NM (Rec: 03/08/24 09:49 NM [id number]) Functional Tests 2 Minute Walk Test Distance 206 ft Device Used 3WW 30 Second Sit to Stand Test Score 9 STS Comments uses HS to stabilize; no hands ; 18 chair Five Times Sit to Stand Test Score 17 seconds Comments uses HS to stabilize; 18 chair Timed Up and Go (TUG) Score 22.3 sec Comments 3WW PT-OP-F Manual Assessment Start: 03/08/24 07:29 Freq: Status: Active Protocol: Document 03/08/24 09:02 NM (Rec: 03/08/24 09:49 NM [id number]) Manual Assessments Soft Tissue Assessment Soft Tissue Mobility Assessment Decreased HS and heel cord length bilaterally Joint Mobility Assessment Joint Mobility Assessment Decreased ankle mobility, hip mobility PT-OP-G Mobility & Gait Start: 03/08/24 07:29 Freq: Status: Active Protocol: Document 03/08/24 09:02 NM (Rec: 03/08/24 10:58 NM [id number]) OP Gait Assessment Gait Gait Assistance Required: Standby Assistance Distance (Feet) 206 Assistive Devices Assistive Device Gait Belt,4 Wheeled Walker Gait Deviations General Gait Pattern Decreased Stride Length, Decreased Feet Clearance, Flexed Trunk Factors Limiting Gait Function Factors Limiting Gait Function Decreased Sensation,Decreased Strength,Limited Range of Motion,Poor Balance Comments Gait Comments Demonstrates B hip ER, decreased foot clearance. Does not fully extend knees with gait and shuffles feet. Has increased trunk sway, less foot clearance and shorter stance time on LLE. Holds walker in front of body vs closer to trunk Using 3 wheeled walker PT-OP-H Neuro Start: 03/08/24 07:29 Freq: Status: Active Protocol: Document 03/08/24 09:02 NM (Rec: 03/08/24 09:49 NM [id number]) Coordination Evaluation Upper Extremity Tests Left Pronation/Supination Test Normal Performance Right Pronation/Supination Test Normal Performance Lower Extremity Tests Left Heel on Augustin Test Normal Performance Foot Tapping Test Normal Performance Right Heel on Augustin Test Normal Performance Foot Tapping Test Normal Performance Vital Signs Comments Vital Signs Comments seated R arm, restin/72 mmHg, 90 spO2, 61 bpm PT-OP-J Posture/Palpation/Skin Start: 03/08/24 07:29 Freq: Status: Active Protocol: Document 03/08/24 09:02 NM (Rec: 03/08/24 09:49 NM [id number]) Posture Evaluation Position Standing Head/C-Spine Posture Forward Head T-Spine Posture Increased Kyphosis L-Spine Posture Increased Lordosis Pelvis Posture Anteriorly Tilted Hip Posture (L) Externally Rotated,(R) Externally Rotated Knee Posture (L) Genu Valgus,(R) Genu Valgus,(L) Excess Flexion,(R) Excess Flexion Ankle/Foot Posture (L) Supinated,(R) Supinated Comments Posture Comments Demos forward PAULO, in standing pt has L trunk lean. Kyphotic PT-OP-K Range of Motion Start: 03/08/24 07:29 Freq: Status: Active Protocol: Document 03/08/24 09:02 NM (Rec: 03/08/24 10:20 NM [id number]) Hip Goniometric Range of Motion Hip ROM Limitations Comments Limited hip flexion ROM bilaterally, did not formally measure Knee Goniometric Range of Motion Knee ROM Limitations Comments Limited hamstring ROM bilaterally, did not formally measure Ankle and Foot Goniometric Range of Motion Ankle and Foot ROM Limitations Comments Limited ankle dorsiflexion ROM bilaterally, did not formally measure PT-OP-M Strength Start: 03/08/24 07:29 Freq: Status: Active Protocol: Document 03/08/24 09:02 NM (Rec: 03/08/24 09:49 NM [id number]) Hip Strength Hip Manual Muscle Testing Right Flexion (L2) 4- Good- Extension (S1) 4- Good- Abduction 4- Good- Adduction 4- Good- External Rotation 4- Good- Internal Rotation 4- Good- Left Flexion (L2) 3+ Fair+ Extension (S1) 3+ Fair+ Abduction 3+ Fair+ Adduction 3+ Fair+ External Rotation 3+ Fair+ Internal Rotation 3+ Fair+ Knee Strength Knee Manual Muscle Testing Right Flexion (S2) 4- Good- Extension (L3) 4- Good- Left Flexion (S2) 4- Good- Extension (L3) 4- Good- Ankle/Foot Strength Ankle and Foot Manual Muscle Testing Right Dorsiflexion (L4) 4 Good Plantarflexion (S1) 4 Good Inversion 4 Good Eversion (S1) 4 Good Comments measured in sitting Left Dorsiflexion (L4) 4 Good Plantarflexion (S1) 4 Good Inversion 4 Good Eversion (S1) 4 Good Comments measured in sitting PT-OP-Q Treatments Start: 03/08/24 07:29 Freq: Status: Active Protocol: Document 03/16/24 14:34 AB (Rec: 03/16/24 16:23 AB [id number]) Therapeutic Exercises Sitting Exercises hip abduction Sitting Exercise Name 1. isometric, 2. clams HEP Side bilateral Resistance level 2 band around thighs Equipment Used mirror for visual feedback Reps/Minutes 1. 60, 2. 2x10 Comments cued for trunk posture, stationary feet LAQ Sitting Exercise Name HEP Side bilateral Resistance AROM> level 1 band at ankles Reps/Minutes 12X2 each LE Comments monitored for pain ankle eversion Side left Equipment Used cane as a target Reps/Minutes with 1 sec pause at X12 Comments Verbal and tactile cues ankle DF Side bilateral Resistance level 2 band Equipment Used mirror for visual feedback Reps/Minutes 2x10 Comments cued for neutral ankle instead of inversion Neuro Re-Education Treatment Balance Activities Romberg Details eyes closed, CGA to minimal assist hands above bars Surface on air ex Reps/Duration X4 step up taps Details CGA hands above bars Equipment 6 inch step Reps/Duration X10 tandem stepping Details modified Reps/Duration 10 feet X 6 Comments CGA hands above bars PT-OP-T Assessment and Plan Start: 03/08/24 07:29 Freq: Status: Active Protocol: Document 03/16/24 14:34 AB (Rec: 03/16/24 16:23 AB [id number]) Physical Therapy Assessment Goals Five Impairment transfers Impairment 5 x STS 17 seconds Short Term Goal (STG) Pt will be able to perform at least 10 sit to stands without compensation and without UE assist in order to demonstrate improved BLE strength, initial balance, and safety with transfers STG Duration 6 weeks Compliance Investigator Goal (LTG) Pt will be able to perform 5x STS in at least 15 seconds or less without compensation or UE assist in order to meet age -related norms, improve BLE strength, initial balance, and safety with transfers LTG Duration 12 weeks Four Impairment ambulation distance Impairment 2 MWT 206 ft with 3 wheeled walker Short Term Goal (STG) Pt will be able to ambulate at least 40 feet further (MDC) on 2 MWT using LRAD in order to demonstrate improved BLE strength, endurance, and activity tolerance. STG Duration 6 weeks Penitentiary Goal (LTG) Pt will be able to complete 6 MWT using LRAD in order to demonstrate improved BLE strength, endurance, and activity tolerance. LTG Duration 12 weeks Three Impairment fear of falling Penitentiary Goal (LTG) Pt will improve ABC score to > 60% in order to demonstrate improved confidence related to not falling during ADLs/IADLs and during gait LTG Duration 12 weeks Two Impairment balance, static, fall risk Impairment Angeles 19/56 Short Term Goal (STG) Pt will increase Angeles balance score > 30/56 in order to demonstate improved balance during transfers and gait for improved safety and to decrease fall risk with AD use STG Duration 6 weeks Penitentiary Goal (LTG) Pt will increase Angeles balance score > 38/56 in order to demonstate improved balance during transfers and gait for improved safety and to decrease fall risk with AD use LTG Duration 12 weeks One Impairment balance, gait Impairment TUG 22.3 seconds with 3WW Short Term Goal (STG) Pt will decrease TUG time to less than 18 seconds with LRAD in order to demonstrate improved gait speed and decreased fall risk during household ambulation STG Duration 6 weeks Penitentiary Goal (LTG) Pt will decrease TUG time to less than 12 seconds with LRAD in order to demonstrate improved gait speed and decreased fall risk during community ambulation LTG Duration 12 weeks Assessment Summary Assessment Unable to perform ankle eversion without increased cues, not added to HEP, post seated exercise, 144/70 HR 60 BPM right UE. 139/61 hr 64 end of session seated right UE Physical Therapy Plan Frequency and Duration Frequency of Treatment 2x/Week Duration of treatment (weeks) 12 Plan of Care Start Date 03/08/24 Plan of Care End Date 06/03/24 Next Visit Focus/Plan Next Note Type Treatment Note Next Visit Plan Review ankle eversion (add to HEP if able). Cont strengthening. STS training ( watch for HS use), LAQ, hip abd, side steps with support, biodex. If brings spc, then trial gait training for household amb only if safe HS and calf stretching, ankle strengthening POC: balance, gait with LRAD on stable and unstable surfaces, resisted ambulation
--- NOTE | 2024-03-18 15:38 | PT.OTN ---
Current Diagnoses Other abnormalities of gait and mobility (03/18/24) Other lack of coordination (03/18/24) Other symptoms and signs involving the musculoskeletal system (03/18/24) Weakness (03/18/24) Physical Therapy Treatment Note PT-OP-A Visit Information Start: 03/08/24 07:29 Freq: Status: Active Protocol: Document 03/18/24 14:34 NM (Rec: 03/18/24 15:38 NM [id number]) Out-Patient Physical Therapy Visit Information Visit Information Visit Type Treatment Note Visit Note KX after 19 visits 145/63 mmHg during session Visit Start Time 14:34 Visit Stop Time 15:12 Visit Number 4 Evaluation Information Evaluation Date 03/08/24 Precautions Precautions fall risk, monitor vitals PT-OP-B Current Condition Start: 03/08/24 07:29 Freq: Status: Active Protocol: Document 03/08/24 09:02 NM (Rec: 03/08/24 09:49 NM [id number]) Current Condition History of Current Condition Current Complaints weakness, decreased mobility, balance History of Current Condition Pt presents to PT with balance and gait abnormalities. She is using a trifold 3WW but has also has 4WW that folds. She live with her , who assists to care for her. She reports difficulty with ambulation. She has had previous PT several years ago for same condition. Pt reports that after last PT, she was able to walk without falling. Uses walker for ambulation in house, otherwise has to reach for things to stabilize. She has had 1 fall a few weeks ago , when ambulating with her walker when she lost her balance and fell on her side. Pt also has a 3 prong cane occasionally to walk. She reports that she has a fear of falling. Pt reports that she has had a stroke, that affected her L side; states that she can use her leg just as well as when she could before. Thinks that she has had the stroke 6 months ago. Pt reports no numbess in her legs. 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 Denies hx of osteoporosis, dizziness, vertigo, no fractures. She is blood pressure medication. Prior Treatments and Tests previous PT for same condition Treatment Goals Patient/Caregiver Goals walk without an AD Current Functional Impairments (Reported) Functional Limitations- ADL's dressing sitting down IND Functional Limitations- Mobility/Gait uses AD to ambulate stairs leading up to house (R rails) and in the home (b rails) PT-OP-C Subjective Start: 03/08/24 07:29 Freq: Status: Active Protocol: Document 03/18/24 14:34 NM (Rec: 03/18/24 15:38 NM [id number]) OP-PT Subjective Patient Comments Patient Comments Pt reports no change since last session, no pain or soreness, no falls. She went to the doctor, no changes since yesterday. States no falls but recounts a story about a previous fall. Pt agrees to allow ORQUIDEA Robin to observe and participate in session PT-OP-D Balance Start: 03/08/24 07:29 Freq: Status: Active Protocol: Document 03/08/24 09:02 NM (Rec: 03/08/24 09:49 NM [id number]) Balance Tests Angeles Balance Test Angeles Balance Test Score 19/56 PT-OP-E Functional Tests Start: 03/08/24 07:29 Freq: Status: Active Protocol: Document 03/08/24 09:02 NM (Rec: 03/08/24 09:49 NM [id number]) Functional Tests 2 Minute Walk Test Distance 206 ft Device Used 3WW 30 Second Sit to Stand Test Score 9 STS Comments uses HS to stabilize; no hands ; 18 chair Five Times Sit to Stand Test Score 17 seconds Comments uses HS to stabilize; 18 chair Timed Up and Go (TUG) Score 22.3 sec Comments 3WW PT-OP-F Manual Assessment Start: 03/08/24 07:29 Freq: Status: Active Protocol: Document 03/08/24 09:02 NM (Rec: 03/08/24 09:49 NM [id number]) Manual Assessments Soft Tissue Assessment Soft Tissue Mobility Assessment Decreased HS and heel cord length bilaterally Joint Mobility Assessment Joint Mobility Assessment Decreased ankle mobility, hip mobility PT-OP-G Mobility & Gait Start: 03/08/24 07:29 Freq: Status: Active Protocol: Document 03/08/24 09:02 NM (Rec: 03/08/24 10:58 NM [id number]) OP Gait Assessment Gait Gait Assistance Required: Standby Assistance Distance (Feet) 206 Assistive Devices Assistive Device Gait Belt,4 Wheeled Walker Gait Deviations General Gait Pattern Decreased Stride Length, Decreased Feet Clearance, Flexed Trunk Factors Limiting Gait Function Factors Limiting Gait Function Decreased Sensation,Decreased Strength,Limited Range of Motion,Poor Balance Comments Gait Comments Demonstrates B hip ER, decreased foot clearance. Does not fully extend knees with gait and shuffles feet. Has increased trunk sway, less foot clearance and shorter stance time on LLE. Holds walker in front of body vs closer to trunk Using 3 wheeled walker PT-OP-H Neuro Start: 03/08/24 07:29 Freq: Status: Active Protocol: Document 03/08/24 09:02 NM (Rec: 03/08/24 09:49 NM [id number]) Coordination Evaluation Upper Extremity Tests Left Pronation/Supination Test Normal Performance Right Pronation/Supination Test Normal Performance Lower Extremity Tests Left Heel on Augustin Test Normal Performance Foot Tapping Test Normal Performance Right Heel on Augustin Test Normal Performance Foot Tapping Test Normal Performance Vital Signs Comments Vital Signs Comments seated R arm, restin/72 mmHg, 90 spO2, 61 bpm PT-OP-J Posture/Palpation/Skin Start: 03/08/24 07:29 Freq: Status: Active Protocol: Document 03/08/24 09:02 NM (Rec: 03/08/24 09:49 NM [id number]) Posture Evaluation Position Standing Head/C-Spine Posture Forward Head T-Spine Posture Increased Kyphosis L-Spine Posture Increased Lordosis Pelvis Posture Anteriorly Tilted Hip Posture (L) Externally Rotated,(R) Externally Rotated Knee Posture (L) Genu Valgus,(R) Genu Valgus,(L) Excess Flexion,(R) Excess Flexion Ankle/Foot Posture (L) Supinated,(R) Supinated Comments Posture Comments Demos forward PAULO, in standing pt has L trunk lean. Kyphotic PT-OP-K Range of Motion Start: 03/08/24 07:29 Freq: Status: Active Protocol: Document 03/08/24 09:02 NM (Rec: 03/08/24 10:20 NM [id number]) Hip Goniometric Range of Motion Hip ROM Limitations Comments Limited hip flexion ROM bilaterally, did not formally measure Knee Goniometric Range of Motion Knee ROM Limitations Comments Limited hamstring ROM bilaterally, did not formally measure Ankle and Foot Goniometric Range of Motion Ankle and Foot ROM Limitations Comments Limited ankle dorsiflexion ROM bilaterally, did not formally measure PT-OP-M Strength Start: 03/08/24 07:29 Freq: Status: Active Protocol: Document 03/08/24 09:02 NM (Rec: 03/08/24 09:49 NM [id number]) Hip Strength Hip Manual Muscle Testing Right Flexion (L2) 4- Good- Extension (S1) 4- Good- Abduction 4- Good- Adduction 4- Good- External Rotation 4- Good- Internal Rotation 4- Good- Left Flexion (L2) 3+ Fair+ Extension (S1) 3+ Fair+ Abduction 3+ Fair+ Adduction 3+ Fair+ External Rotation 3+ Fair+ Internal Rotation 3+ Fair+ Knee Strength Knee Manual Muscle Testing Right Flexion (S2) 4- Good- Extension (L3) 4- Good- Left Flexion (S2) 4- Good- Extension (L3) 4- Good- Ankle/Foot Strength Ankle and Foot Manual Muscle Testing Right Dorsiflexion (L4) 4 Good Plantarflexion (S1) 4 Good Inversion 4 Good Eversion (S1) 4 Good Comments measured in sitting Left Dorsiflexion (L4) 4 Good Plantarflexion (S1) 4 Good Inversion 4 Good Eversion (S1) 4 Good Comments measured in sitting PT-OP-Q Treatments Start: 03/08/24 07:29 Freq: Status: Active Protocol: Document 03/18/24 14:34 NM (Rec: 03/18/24 15:38 NM [id number]) Therapeutic Exercises Sitting Exercises LAQ Side bilateral Resistance level 1 band at ankles Reps/Minutes 15 ea Comments cued TKE, upright posture Standing Exercises side steps Side bilateral Resistance AROM > level 1 band at thighs Reps/Minutes 2x10 ft ea resistance Comments requires increased time d/t speed; cued neutral foot/hip calf raise Side bilateral Equipment Used B hand support on rail Reps/Minutes 15 Comments cued equal WB calf stretch Standing Exercise Name 1. gastroc, 2. soleus Side bilateral Equipment Used MALATHI Reps/Minutes 60 ea Therapeutic Activity Therapeutic Activity sit to stand Reps/Minutes 10 reps throughout session Comments Improved form, less dependent on use of UE to assist with standing transfers Name with FWW and spc Reps/Minutes multiple reps throughout session Comments Moderate cues to keep FWW and spc closer with transfer, ambulation, and backing up to chair, Wider turns and remaining within FWW with turns and before backing up for safety. Less stable with spc and requires more cues for safety Neuro Re-Education Treatment Balance Activities stepping Details hands hovering over //bars Surface stable Equipment CGA Comments 1. fwd ambulation while looking ahead, 2x10 ft 2. retro ambulatoin while looking ahead, 2x10 ft Cued wider PAULO, larger steps with retro gait to prevent shuffling step up taps Comments 4 step, CGA with hands above bars 1. fwd step taps, alternating 2x10 ea leg 2. lateral step taps, 10 ea Cued moderately to prevent compensations, yoni with lateral movement tandem stepping Details modified Comments CGA hands above bars 1. modified stance ea LE, 30 ea 2. tandem stance, ea LE 30 ea Challenging for pt. Cued to look up to reduce visual dependence, which improves stability PT-OP-T Assessment and Plan Start: 03/08/24 07:29 Freq: Status: Active Protocol: Document 03/18/24 14:34 NM (Rec: 03/18/24 15:38 NM [id number]) Physical Therapy Assessment Goals Five Impairment transfers Impairment 5 x STS 17 seconds Short Term Goal (STG) Pt will be able to perform at least 10 sit to stands without compensation and without UE assist in order to demonstrate improved BLE strength, initial balance, and safety with transfers STG Duration 6 weeks [employer] Worker Goal (LTG) Pt will be able to perform 5x STS in at least 15 seconds or less without compensation or UE assist in order to meet age -related norms, improve BLE strength, initial balance, and safety with transfers LTG Duration 12 weeks Four Impairment ambulation distance Impairment 2 MWT 206 ft with 3 wheeled walker Short Term Goal (STG) Pt will be able to ambulate at least 40 feet further (MDC) on 2 MWT using LRAD in order to demonstrate improved BLE strength, endurance, and activity tolerance. STG Duration 6 weeks Group Home Goal (LTG) Pt will be able to complete 6 MWT using LRAD in order to demonstrate improved BLE strength, endurance, and activity tolerance. LTG Duration 12 weeks Three Impairment fear of falling Group Home Goal (LTG) Pt will improve ABC score to > 60% in order to demonstrate improved confidence related to not falling during ADLs/IADLs and during gait LTG Duration 12 weeks Two Impairment balance, static, fall risk Impairment Angeles 19/56 Short Term Goal (STG) Pt will increase Angeles balance score > 30/56 in order to demonstate improved balance during transfers and gait for improved safety and to decrease fall risk with AD use STG Duration 6 weeks Group Home Goal (LTG) Pt will increase Angeles balance score > 38/56 in order to demonstate improved balance during transfers and gait for improved safety and to decrease fall risk with AD use LTG Duration 12 weeks One Impairment balance, gait Impairment TUG 22.3 seconds with 3WW Short Term Goal (STG) Pt will decrease TUG time to less than 18 seconds with LRAD in order to demonstrate improved gait speed and decreased fall risk during household ambulation STG Duration 6 weeks Group Home Goal (LTG) Pt will decrease TUG time to less than 12 seconds with LRAD in order to demonstrate improved gait speed and decreased fall risk during community ambulation LTG Duration 12 weeks Assessment Summary Assessment Pt tolerated session well, but she does become short of breath with exertion. Blood pressure measured during middle of session at 145/63 mmHg. Continued with heel cord stretch and minimal hamstring stretch to address tightness behind thigh during LAQs. Initiated side steps for glute strengthening to stabilize during gait and transfers; pt demos improved form with resistance but requires cues to maintain neutral foot/hip position and foot clearance. Continued with balance training with step taps forward and laterally, with moderate cues for correct execution. Pt is CGA for most balance activities but would have difficulty with self- correcting balance without UE support or PT assistance. Pt continues to demonstrate poor awareness of surroundings and AD use when performing transfers, even with cueing. PT educated both pt and her on having next to pt with contact during side steps at counter for safety, recommended pt always use AD for household mobility due to increased fall risk. Pt would benefit from skilled PT for global strengthening, gait, and balance training in order to improve activity tolerance and decrease fall risk. Physical Therapy Plan Frequency and Duration Frequency of Treatment 2x/Week Duration of treatment (weeks) 12 Plan of Care Start Date 03/08/24 Plan of Care End Date 06/03/24 Therapeutic Interventions Therapeutic Interventions Balance Training,Gait Training ,Home Exercise Program,Joint Mobilizations,Manual Therapy, Neuromuscular Re-education, Orthotic/Prosthetic Management ,Patient/Caregiver Education, Self-Care/Home Management,Soft Tissue Mobilization,Taping, Therapeutic Activities, Therapeutic Exercises Modalities Cold Pack/Ice Massage,Hot Packs Next Visit Focus/Plan Next Note Type Treatment Note Next Visit Plan Global hip strengthening: hip ext, march with band or ankle weights, side steps review, STS vs squat, leg press (low reisistance), transfer training with FWW and cane for safety POC: balance, gait with LRAD on stable and unstable surfaces, resisted ambulation
--- NOTE | 2024-03-22 14:32 | PT.OTN ---
Current Diagnoses Other abnormalities of gait and mobility (03/22/24) Other lack of coordination (03/22/24) Other symptoms and signs involving the musculoskeletal system (03/22/24) Weakness (03/22/24) Physical Therapy Treatment Note PT-OP-A Visit Information Start: 03/08/24 07:29 Freq: Status: Active Protocol: Document 03/22/24 14:31 TS (Rec: 03/22/24 16:40 TS [id number]) Out-Patient Physical Therapy Visit Information Visit Information Visit Type Treatment Note Visit Note KX after 19 visits MEDRODRIGUEDGZainab: [id number] Visit Start Time 14:32 Visit Stop Time 15:15 Visit Number 5 Number of LAND INSPECTOR Visits 1 PT-OP-B Current Condition Start: 03/08/24 07:29 Freq: Status: Active Protocol: Document 03/08/24 09:02 NM (Rec: 03/08/24 09:49 NM [id number]) Current Condition History of Current Condition Current Complaints weakness, decreased mobility, balance History of Current Condition Pt presents to PT with balance and gait abnormalities. She is using a trifold 3WW but has also has 4WW that folds. She live with her , who assists to care for her. She reports difficulty with ambulation. She has had previous PT several years ago for same condition. Pt reports that after last PT, she was able to walk without falling. Uses walker for ambulation in house, otherwise has to reach for things to stabilize. She has had 1 fall a few weeks ago , when ambulating with her walker when she lost her balance and fell on her side. Pt also has a 3 prong cane occasionally to walk. She reports that she has a fear of falling. Pt reports that she has had a stroke, that affected her L side; states that she can use her leg just as well as when she could before. Thinks that she has had the stroke 6 months ago. Pt reports no numbess in her legs. 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 Denies hx of osteoporosis, dizziness, vertigo, no fractures. She is blood pressure medication. Prior Treatments and Tests previous PT for same condition Treatment Goals Patient/Caregiver Goals walk without an AD Current Functional Impairments (Reported) Functional Limitations- ADL's dressing sitting down IND Functional Limitations- Mobility/Gait uses AD to ambulate stairs leading up to house (R rails) and in the home (b rails) PT-OP-C Subjective Start: 03/08/24 07:29 Freq: Status: Active Protocol: Document 03/22/24 14:31 TS (Rec: 03/22/24 16:40 TS [id number]) OP-PT Subjective Patient Comments Patient Comments Pt continues to report no recent LOB's and no pain. PT-OP-D Balance Start: 03/08/24 07:29 Freq: Status: Active Protocol: Document 03/08/24 09:02 NM (Rec: 03/08/24 09:49 NM [id number]) Balance Tests Angeles Balance Test Angeles Balance Test Score 19/56 PT-OP-E Functional Tests Start: 03/08/24 07:29 Freq: Status: Active Protocol: Document 03/08/24 09:02 NM (Rec: 03/08/24 09:49 NM [id number]) Functional Tests 2 Minute Walk Test Distance 206 ft Device Used 3WW 30 Second Sit to Stand Test Score 9 STS Comments uses HS to stabilize; no hands ; 18 chair Five Times Sit to Stand Test Score 17 seconds Comments uses HS to stabilize; 18 chair Timed Up and Go (TUG) Score 22.3 sec Comments 3WW PT-OP-F Manual Assessment Start: 03/08/24 07:29 Freq: Status: Active Protocol: Document 03/08/24 09:02 NM (Rec: 03/08/24 09:49 NM [id number]) Manual Assessments Soft Tissue Assessment Soft Tissue Mobility Assessment Decreased HS and heel cord length bilaterally Joint Mobility Assessment Joint Mobility Assessment Decreased ankle mobility, hip mobility PT-OP-G Mobility & Gait Start: 03/08/24 07:29 Freq: Status: Active Protocol: Document 03/08/24 09:02 NM (Rec: 03/08/24 10:58 NM [id number]) OP Gait Assessment Gait Gait Assistance Required: Standby Assistance Distance (Feet) 206 Assistive Devices Assistive Device Gait Belt,4 Wheeled Walker Gait Deviations General Gait Pattern Decreased Stride Length, Decreased Feet Clearance, Flexed Trunk Factors Limiting Gait Function Factors Limiting Gait Function Decreased Sensation,Decreased Strength,Limited Range of Motion,Poor Balance Comments Gait Comments Demonstrates B hip ER, decreased foot clearance. Does not fully extend knees with gait and shuffles feet. Has increased trunk sway, less foot clearance and shorter stance time on LLE. Holds walker in front of body vs closer to trunk Using 3 wheeled walker PT-OP-H Neuro Start: 03/08/24 07:29 Freq: Status: Active Protocol: Document 03/08/24 09:02 NM (Rec: 03/08/24 09:49 NM [id number]) Coordination Evaluation Upper Extremity Tests Left Pronation/Supination Test Normal Performance Right Pronation/Supination Test Normal Performance Lower Extremity Tests Left Heel on Augustin Test Normal Performance Foot Tapping Test Normal Performance Right Heel on Augustin Test Normal Performance Foot Tapping Test Normal Performance Vital Signs Comments Vital Signs Comments seated R arm, restin/72 mmHg, 90 spO2, 61 bpm PT-OP-J Posture/Palpation/Skin Start: 03/08/24 07:29 Freq: Status: Active Protocol: Document 03/08/24 09:02 NM (Rec: 03/08/24 09:49 NM [id number]) Posture Evaluation Position Standing Head/C-Spine Posture Forward Head T-Spine Posture Increased Kyphosis L-Spine Posture Increased Lordosis Pelvis Posture Anteriorly Tilted Hip Posture (L) Externally Rotated,(R) Externally Rotated Knee Posture (L) Genu Valgus,(R) Genu Valgus,(L) Excess Flexion,(R) Excess Flexion Ankle/Foot Posture (L) Supinated,(R) Supinated Comments Posture Comments Demos forward PAULO, in standing pt has L trunk lean. Kyphotic PT-OP-K Range of Motion Start: 03/08/24 07:29 Freq: Status: Active Protocol: Document 03/08/24 09:02 NM (Rec: 03/08/24 10:20 NM [id number]) Hip Goniometric Range of Motion Hip ROM Limitations Comments Limited hip flexion ROM bilaterally, did not formally measure Knee Goniometric Range of Motion Knee ROM Limitations Comments Limited hamstring ROM bilaterally, did not formally measure Ankle and Foot Goniometric Range of Motion Ankle and Foot ROM Limitations Comments Limited ankle dorsiflexion ROM bilaterally, did not formally measure PT-OP-M Strength Start: 03/08/24 07:29 Freq: Status: Active Protocol: Document 03/08/24 09:02 NM (Rec: 03/08/24 09:49 NM [id number]) Hip Strength Hip Manual Muscle Testing Right Flexion (L2) 4- Good- Extension (S1) 4- Good- Abduction 4- Good- Adduction 4- Good- External Rotation 4- Good- Internal Rotation 4- Good- Left Flexion (L2) 3+ Fair+ Extension (S1) 3+ Fair+ Abduction 3+ Fair+ Adduction 3+ Fair+ External Rotation 3+ Fair+ Internal Rotation 3+ Fair+ Knee Strength Knee Manual Muscle Testing Right Flexion (S2) 4- Good- Extension (L3) 4- Good- Left Flexion (S2) 4- Good- Extension (L3) 4- Good- Ankle/Foot Strength Ankle and Foot Manual Muscle Testing Right Dorsiflexion (L4) 4 Good Plantarflexion (S1) 4 Good Inversion 4 Good Eversion (S1) 4 Good Comments measured in sitting Left Dorsiflexion (L4) 4 Good Plantarflexion (S1) 4 Good Inversion 4 Good Eversion (S1) 4 Good Comments measured in sitting PT-OP-Q Treatments Start: 03/08/24 07:29 Freq: Status: Active Protocol: Document 03/22/24 14:31 TS (Rec: 03/22/24 16:40 TS [id number]) Therapeutic Exercises Sitting Exercises STS Equipment Used Chair Reps/Minutes 1x10 Comments Pt improved form with cues for hip hinge and feet underneath her. hip abduction Sitting Exercise Name clams HEP Side bilateral Resistance level 2 band around thighs Reps/Minutes 2x10 Comments Cued for stationary feet Standing Exercises Standing March Side bilateral Equipment Used B Rail support Reps/Minutes 2x15 Hip EXT Standing Exercise Name Added to HEP Equipment Used Rail for support Reps/Minutes x10 Comments Cued for glute act Mini Squat Standing Exercise Name Added to HEP Reps/Minutes x10 Comments Feels stretch in low back, not painful side steps Side bilateral Resistance level 1 band at thighs Reps/Minutes 2x10 ft ea Comments Cued neutral foot/hip calf raise Side bilateral Equipment Used B hand support on rail Reps/Minutes 2x10 Comments Cued for slow eccentric control Gait Training Gait Activity FWW Device Used FWW Level of Assistance close SBA Surface stable Distance/Duration 149 ft Treatment Focus endurance, heel strike, foot clearance, FWW safety with turns and transfers Comments Pt self cued for heel > toe. Does not clear feet, no ankle DF with ambulation. Cued for safety on turns, wider turns with slightly larger steps. PT-OP-T Assessment and Plan Start: 03/08/24 07:29 Freq: Status: Active Protocol: Document 03/22/24 14:31 TS (Rec: 03/22/24 16:40 TS [id number]) Physical Therapy Assessment Goals Five Impairment transfers Impairment 5 x STS 17 seconds Short Term Goal (STG) Pt will be able to perform at least 10 sit to stands without compensation and without UE assist in order to demonstrate improved BLE strength, initial balance, and safety with transfers 7/2: 10 STS with no UE support . STG Duration 6 weeks 72 Goal Met Aircraft Air Conditioning Mechanic Goal (LTG) Pt will be able to perform 5x STS in at least 15 seconds or less without compensation or UE assist in order to meet age -related norms, improve BLE strength, initial balance, and safety with transfers LTG Duration 12 weeks Four Impairment ambulation distance Impairment 2 MWT 206 ft with 3 wheeled walker Short Term Goal (STG) Pt will be able to ambulate at least 40 feet further (MDC) on 2 MWT using LRAD in order to demonstrate improved BLE strength, endurance, and activity tolerance. 03/22 149'. Decreased in distance most likely due to pacing. STG Duration 6 weeks Residential Goal (LTG) Pt will be able to complete 6 MWT using LRAD in order to demonstrate improved BLE strength, endurance, and activity tolerance. LTG Duration 12 weeks Three Impairment fear of falling Residential Goal (LTG) Pt will improve ABC score to > 60% in order to demonstrate improved confidence related to not falling during ADLs/IADLs and during gait LTG Duration 12 weeks Two Impairment balance, static, fall risk Impairment Angeles 19/56 Short Term Goal (STG) Pt will increase Angeles balance score > 30/56 in order to demonstate improved balance during transfers and gait for improved safety and to decrease fall risk with AD use STG Duration 6 weeks Aircraft Air Conditioning Mechanic Goal (LTG) Pt will increase Angeles balance score > 38/56 in order to demonstate improved balance during transfers and gait for improved safety and to decrease fall risk with AD use LTG Duration 12 weeks One Impairment balance, gait Impairment TUG 22.3 seconds with 3WW Short Term Goal (STG) Pt will decrease TUG time to less than 18 seconds with LRAD in order to demonstrate improved gait speed and decreased fall risk during household ambulation STG Duration 6 weeks Residential Goal (LTG) Pt will decrease TUG time to less than 12 seconds with LRAD in order to demonstrate improved gait speed and decreased fall risk during community ambulation LTG Duration 12 weeks Assessment Summary Assessment Pt met goal of STS x10 with no UE support and compensation, she does require max cueing for proper sequencing. She continues to be CGA with rail support at times for balance activities. She demonstrates poor safety awareness and requires cues for use of FWW for transfers. Pt will continue to benefit from PT to improve strength, balance and safety awareness. Physical Therapy Plan Next Visit Focus/Plan Next Note Type Treatment Note Next Visit Plan Assess carryover of new HEP of Mini Squats and hip ext. Global hip strengthening: hip ext, march with band or ankle weights, side steps review, STS vs squat, leg press (low reisistance), transfer training with FWW and cane for safety POC: balance, gait with LRAD on stable and unstable surfaces, resisted ambulation
--- NOTE | 2024-03-29 14:35 | PT.OTN ---
Current Diagnoses Other abnormalities of gait and mobility (03/29/24) Other lack of coordination (03/29/24) Other symptoms and signs involving the musculoskeletal system (03/29/24) Weakness (03/29/24) Physical Therapy Treatment Note PT-OP-A Visit Information Start: 03/08/24 07:29 Freq: Status: Active Protocol: Document 03/29/24 14:33 TS (Rec: 03/29/24 16:03 TS [id number]) Out-Patient Physical Therapy Visit Information Visit Information Visit Type Treatment Note Visit Note KX after 19 visits MEDRODRIGUEDGZainab: [id number] Visit Start Time 14:35 Visit Stop Time 15:15 Visit Number 6 Number of BRAND MARKETING MANAGER Visits 2 PT-OP-B Current Condition Start: 03/08/24 07:29 Freq: Status: Active Protocol: Document 03/08/24 09:02 NM (Rec: 03/08/24 09:49 NM [id number]) Current Condition History of Current Condition Current Complaints weakness, decreased mobility, balance History of Current Condition Pt presents to PT with balance and gait abnormalities. She is using a trifold 3WW but has also has 4WW that folds. She live with her , who assists to care for her. She reports difficulty with ambulation. She has had previous PT several years ago for same condition. Pt reports that after last PT, she was able to walk without falling. Uses walker for ambulation in house, otherwise has to reach for things to stabilize. She has had 1 fall a few weeks ago , when ambulating with her walker when she lost her balance and fell on her side. Pt also has a 3 prong cane occasionally to walk. She reports that she has a fear of falling. Pt reports that she has had a stroke, that affected her L side; states that she can use her leg just as well as when she could before. Thinks that she has had the stroke 6 months ago. Pt reports no numbess in her legs. 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 Denies hx of osteoporosis, dizziness, vertigo, no fractures. She is blood pressure medication. Prior Treatments and Tests previous PT for same condition Treatment Goals Patient/Caregiver Goals walk without an AD Current Functional Impairments (Reported) Functional Limitations- ADL's dressing sitting down IND Functional Limitations- Mobility/Gait uses AD to ambulate stairs leading up to house (R rails) and in the home (b rails) PT-OP-C Subjective Start: 03/08/24 07:29 Freq: Status: Active Protocol: Document 03/29/24 14:33 TS (Rec: 03/29/24 16:03 TS [id number]) OP-PT Subjective Patient Comments Patient Comments Pt reports she is doing her HEP at home and it is going well. Spouse will assist with HEP. Continues to report no falls. PT-OP-D Balance Start: 03/08/24 07:29 Freq: Status: Active Protocol: Document 03/08/24 09:02 NM (Rec: 03/08/24 09:49 NM [id number]) Balance Tests Angeles Balance Test Angeles Balance Test Score 19/56 PT-OP-E Functional Tests Start: 03/08/24 07:29 Freq: Status: Active Protocol: Document 03/08/24 09:02 NM (Rec: 03/08/24 09:49 NM [id number]) Functional Tests 2 Minute Walk Test Distance 206 ft Device Used 3WW 30 Second Sit to Stand Test Score 9 STS Comments uses HS to stabilize; no hands ; 18 chair Five Times Sit to Stand Test Score 17 seconds Comments uses HS to stabilize; 18 chair Timed Up and Go (TUG) Score 22.3 sec Comments 3WW PT-OP-F Manual Assessment Start: 03/08/24 07:29 Freq: Status: Active Protocol: Document 03/08/24 09:02 NM (Rec: 03/08/24 09:49 NM [id number]) Manual Assessments Soft Tissue Assessment Soft Tissue Mobility Assessment Decreased HS and heel cord length bilaterally Joint Mobility Assessment Joint Mobility Assessment Decreased ankle mobility, hip mobility PT-OP-G Mobility & Gait Start: 03/08/24 07:29 Freq: Status: Active Protocol: Document 03/08/24 09:02 NM (Rec: 03/08/24 10:58 NM [id number]) OP Gait Assessment Gait Gait Assistance Required: Standby Assistance Distance (Feet) 206 Assistive Devices Assistive Device Gait Belt,4 Wheeled Walker Gait Deviations General Gait Pattern Decreased Stride Length, Decreased Feet Clearance, Flexed Trunk Factors Limiting Gait Function Factors Limiting Gait Function Decreased Sensation,Decreased Strength,Limited Range of Motion,Poor Balance Comments Gait Comments Demonstrates B hip ER, decreased foot clearance. Does not fully extend knees with gait and shuffles feet. Has increased trunk sway, less foot clearance and shorter stance time on LLE. Holds walker in front of body vs closer to trunk Using 3 wheeled walker PT-OP-H Neuro Start: 03/08/24 07:29 Freq: Status: Active Protocol: Document 03/08/24 09:02 NM (Rec: 03/08/24 09:49 NM [id number]) Coordination Evaluation Upper Extremity Tests Left Pronation/Supination Test Normal Performance Right Pronation/Supination Test Normal Performance Lower Extremity Tests Left Heel on Augustin Test Normal Performance Foot Tapping Test Normal Performance Right Heel on Augustin Test Normal Performance Foot Tapping Test Normal Performance Vital Signs Comments Vital Signs Comments seated R arm, restin/72 mmHg, 90 spO2, 61 bpm PT-OP-J Posture/Palpation/Skin Start: 03/08/24 07:29 Freq: Status: Active Protocol: Document 03/08/24 09:02 NM (Rec: 03/08/24 09:49 NM [id number]) Posture Evaluation Position Standing Head/C-Spine Posture Forward Head T-Spine Posture Increased Kyphosis L-Spine Posture Increased Lordosis Pelvis Posture Anteriorly Tilted Hip Posture (L) Externally Rotated,(R) Externally Rotated Knee Posture (L) Genu Valgus,(R) Genu Valgus,(L) Excess Flexion,(R) Excess Flexion Ankle/Foot Posture (L) Supinated,(R) Supinated Comments Posture Comments Demos forward PAULO, in standing pt has L trunk lean. Kyphotic PT-OP-K Range of Motion Start: 03/08/24 07:29 Freq: Status: Active Protocol: Document 03/08/24 09:02 NM (Rec: 03/08/24 10:20 NM [id number]) Hip Goniometric Range of Motion Hip ROM Limitations Comments Limited hip flexion ROM bilaterally, did not formally measure Knee Goniometric Range of Motion Knee ROM Limitations Comments Limited hamstring ROM bilaterally, did not formally measure Ankle and Foot Goniometric Range of Motion Ankle and Foot ROM Limitations Comments Limited ankle dorsiflexion ROM bilaterally, did not formally measure PT-OP-M Strength Start: 03/08/24 07:29 Freq: Status: Active Protocol: Document 03/08/24 09:02 NM (Rec: 03/08/24 09:49 NM [id number]) Hip Strength Hip Manual Muscle Testing Right Flexion (L2) 4- Good- Extension (S1) 4- Good- Abduction 4- Good- Adduction 4- Good- External Rotation 4- Good- Internal Rotation 4- Good- Left Flexion (L2) 3+ Fair+ Extension (S1) 3+ Fair+ Abduction 3+ Fair+ Adduction 3+ Fair+ External Rotation 3+ Fair+ Internal Rotation 3+ Fair+ Knee Strength Knee Manual Muscle Testing Right Flexion (S2) 4- Good- Extension (L3) 4- Good- Left Flexion (S2) 4- Good- Extension (L3) 4- Good- Ankle/Foot Strength Ankle and Foot Manual Muscle Testing Right Dorsiflexion (L4) 4 Good Plantarflexion (S1) 4 Good Inversion 4 Good Eversion (S1) 4 Good Comments measured in sitting Left Dorsiflexion (L4) 4 Good Plantarflexion (S1) 4 Good Inversion 4 Good Eversion (S1) 4 Good Comments measured in sitting PT-OP-Q Treatments Start: 03/08/24 07:29 Freq: Status: Active Protocol: Document 03/29/24 14:33 TS (Rec: 03/29/24 16:03 TS [id number]) Therapeutic Exercises Sitting Exercises STS Equipment Used Chair Reps/Minutes 2x10 Comments Pt improved form with cues for hip hinge and feet underneath her. Standing Exercises Standing March Side bilateral Resistance LVL 1 Equipment Used B Rail support Reps/Minutes 2x10 Comments Cued for increased height Hip EXT Standing Exercise Name HEP Resistance LVL 1 Equipment Used Rail for support Reps/Minutes x10 Comments Cued for glute act, fatigues stance leg side steps Side bilateral Resistance level 1 band at thighs Reps/Minutes 2x10 ft ea Comments Cued neutral foot/hip Neuro Re-Education Treatment Balance Activities Floor balance Details NBOS, WBOS w/HT's Comments Decreased ROM in HT's to R side. Pt has some fear, tends to lean to rail side. Foam Details WBOS Comments Challenging and fatiguing tandem stepping Details tandem walk Reps/Duration 2x10' Comments Use of single rail bar, cues for heel to toe. PT-OP-T Assessment and Plan Start: 03/08/24 07:29 Freq: Status: Active Protocol: Document 03/29/24 14:33 TS (Rec: 03/29/24 16:03 TS [id number]) Physical Therapy Assessment Goals Five Impairment transfers Impairment 5 x STS 17 seconds Short Term Goal (STG) Pt will be able to perform at least 10 sit to stands without compensation and without UE assist in order to demonstrate improved BLE strength, initial balance, and safety with transfers 7/2: 10 STS with no UE support . STG Duration 6 weeks 72 Goal Met Data Integration Developer Goal (LTG) Pt will be able to perform 5x STS in at least 15 seconds or less without compensation or UE assist in order to meet age -related norms, improve BLE strength, initial balance, and safety with transfers LTG Duration 12 weeks Four Impairment ambulation distance Impairment 2 MWT 206 ft with 3 wheeled walker Short Term Goal (STG) Pt will be able to ambulate at least 40 feet further (MDC) on 2 MWT using LRAD in order to demonstrate improved BLE strength, endurance, and activity tolerance. 03/22 149'. Decreased in distance most likely due to pacing. STG Duration 6 weeks Halfway Goal (LTG) Pt will be able to complete 6 MWT using LRAD in order to demonstrate improved BLE strength, endurance, and activity tolerance. LTG Duration 12 weeks Three Impairment fear of falling Data Integration Developer Goal (LTG) Pt will improve ABC score to > 60% in order to demonstrate improved confidence related to not falling during ADLs/IADLs and during gait LTG Duration 12 weeks Two Impairment balance, static, fall risk Impairment Angeles 19/56 Short Term Goal (STG) Pt will increase Angeles balance score > 30/56 in order to demonstate improved balance during transfers and gait for improved safety and to decrease fall risk with AD use STG Duration 6 weeks Halfway Goal (LTG) Pt will increase Angeles balance score > 38/56 in order to demonstate improved balance during transfers and gait for improved safety and to decrease fall risk with AD use LTG Duration 12 weeks One Impairment balance, gait Impairment TUG 22.3 seconds with 3WW Short Term Goal (STG) Pt will decrease TUG time to less than 18 seconds with LRAD in order to demonstrate improved gait speed and decreased fall risk during household ambulation STG Duration 6 weeks Halfway Goal (LTG) Pt will decrease TUG time to less than 12 seconds with LRAD in order to demonstrate improved gait speed and decreased fall risk during community ambulation LTG Duration 12 weeks Assessment Summary Assessment Pt continues to require cues for STS technique, more specifically hip hinging. She fatigues quickly with balance training on foam and flat floor. She expresses fears of falling with balance training. She continues to require cues for toes straight and forward with sidestepping, R>L. Pt would continue to benefit from PT to improve strength, balance, gait and functional mobility. Physical Therapy Plan Next Visit Focus/Plan Next Note Type Treatment Note Next Visit Plan Assess carryover of STS technique. Continue balance training, HT's, NBOS and foam. Global hip strengthening: hip ext, march with band or ankle weights, side steps review, STS vs squat, leg press (low reisistance), transfer training with FWW and cane for safety POC: balance, gait with LRAD on stable and unstable surfaces, resisted ambulation
--- NOTE | 2024-04-05 13:01 | PT.OTN ---
Current Diagnoses Other abnormalities of gait and mobility (04/05/24) Other lack of coordination (04/05/24) Other symptoms and signs involving the musculoskeletal system (04/05/24) Weakness (04/05/24) Physical Therapy Treatment Note PT-OP-A Visit Information Start: 03/08/24 07:29 Freq: Status: Active Protocol: Document 04/05/24 10:36 SW (Rec: 04/05/24 11:18 SW [id number]) Out-Patient Physical Therapy Visit Information Visit Information Visit Type Treatment Note Visit Start Time 10:31 Visit Stop Time 11:10 Visit Number 7 Number of GROUP CHIEF OPERATOR Visits 3 PT-OP-B Current Condition Start: 03/08/24 07:29 Freq: Status: Active Protocol: Document 03/08/24 09:02 NM (Rec: 03/08/24 09:49 NM [id number]) Current Condition History of Current Condition Current Complaints weakness, decreased mobility, balance History of Current Condition Pt presents to PT with balance and gait abnormalities. She is using a trifold 3WW but has also has 4WW that folds. She live with her , who assists to care for her. She reports difficulty with ambulation. She has had previous PT several years ago for same condition. Pt reports that after last PT, she was able to walk without falling. Uses walker for ambulation in house, otherwise has to reach for things to stabilize. She has had 1 fall a few weeks ago , when ambulating with her walker when she lost her balance and fell on her side. Pt also has a 3 prong cane occasionally to walk. She reports that she has a fear of falling. Pt reports that she has had a stroke, that affected her L side; states that she can use her leg just as well as when she could before. Thinks that she has had the stroke 6 months ago. Pt reports no numbess in her legs. 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 Denies hx of osteoporosis, dizziness, vertigo, no fractures. She is blood pressure medication. Prior Treatments and Tests previous PT for same condition Treatment Goals Patient/Caregiver Goals walk without an AD Current Functional Impairments (Reported) Functional Limitations- ADL's dressing sitting down IND Functional Limitations- Mobility/Gait uses AD to ambulate stairs leading up to house (R rails) and in the home (b rails) PT-OP-C Subjective Start: 03/08/24 07:29 Freq: Status: Active Protocol: Document 04/05/24 10:36 SW (Rec: 04/05/24 11:18 SW [id number]) OP-PT Subjective Patient Comments Patient Comments Pt reports no new changes. Pt reports nervous about falling, pt reports walking without anything, hands hovering above rail, goal to start walking without AD eventualy. PT-OP-D Balance Start: 03/08/24 07:29 Freq: Status: Active Protocol: Document 03/08/24 09:02 NM (Rec: 03/08/24 09:49 NM [id number]) Balance Tests Angeles Balance Test Angeles Balance Test Score 19/56 PT-OP-E Functional Tests Start: 03/08/24 07:29 Freq: Status: Active Protocol: Document 03/08/24 09:02 NM (Rec: 03/08/24 09:49 NM [id number]) Functional Tests 2 Minute Walk Test Distance 206 ft Device Used 3WW 30 Second Sit to Stand Test Score 9 STS Comments uses HS to stabilize; no hands ; 18 chair Five Times Sit to Stand Test Score 17 seconds Comments uses HS to stabilize; 18 chair Timed Up and Go (TUG) Score 22.3 sec Comments 3WW PT-OP-F Manual Assessment Start: 03/08/24 07:29 Freq: Status: Active Protocol: Document 03/08/24 09:02 NM (Rec: 03/08/24 09:49 NM [id number]) Manual Assessments Soft Tissue Assessment Soft Tissue Mobility Assessment Decreased HS and heel cord length bilaterally Joint Mobility Assessment Joint Mobility Assessment Decreased ankle mobility, hip mobility PT-OP-G Mobility & Gait Start: 03/08/24 07:29 Freq: Status: Active Protocol: Document 03/08/24 09:02 NM (Rec: 03/08/24 10:58 NM [id number]) OP Gait Assessment Gait Gait Assistance Required: Standby Assistance Distance (Feet) 206 Assistive Devices Assistive Device Gait Belt,4 Wheeled Walker Gait Deviations General Gait Pattern Decreased Stride Length, Decreased Feet Clearance, Flexed Trunk Factors Limiting Gait Function Factors Limiting Gait Function Decreased Sensation,Decreased Strength,Limited Range of Motion,Poor Balance Comments Gait Comments Demonstrates B hip ER, decreased foot clearance. Does not fully extend knees with gait and shuffles feet. Has increased trunk sway, less foot clearance and shorter stance time on LLE. Holds walker in front of body vs closer to trunk Using 3 wheeled walker PT-OP-H Neuro Start: 03/08/24 07:29 Freq: Status: Active Protocol: Document 03/08/24 09:02 NM (Rec: 03/08/24 09:49 NM [id number]) Coordination Evaluation Upper Extremity Tests Left Pronation/Supination Test Normal Performance Right Pronation/Supination Test Normal Performance Lower Extremity Tests Left Heel on Augustin Test Normal Performance Foot Tapping Test Normal Performance Right Heel on Augustin Test Normal Performance Foot Tapping Test Normal Performance Vital Signs Comments Vital Signs Comments seated R arm, restin/72 mmHg, 90 spO2, 61 bpm PT-OP-J Posture/Palpation/Skin Start: 03/08/24 07:29 Freq: Status: Active Protocol: Document 03/08/24 09:02 NM (Rec: 03/08/24 09:49 NM [id number]) Posture Evaluation Position Standing Head/C-Spine Posture Forward Head T-Spine Posture Increased Kyphosis L-Spine Posture Increased Lordosis Pelvis Posture Anteriorly Tilted Hip Posture (L) Externally Rotated,(R) Externally Rotated Knee Posture (L) Genu Valgus,(R) Genu Valgus,(L) Excess Flexion,(R) Excess Flexion Ankle/Foot Posture (L) Supinated,(R) Supinated Comments Posture Comments Demos forward PAULO, in standing pt has L trunk lean. Kyphotic PT-OP-K Range of Motion Start: 03/08/24 07:29 Freq: Status: Active Protocol: Document 03/08/24 09:02 NM (Rec: 03/08/24 10:20 NM [id number]) Hip Goniometric Range of Motion Hip ROM Limitations Comments Limited hip flexion ROM bilaterally, did not formally measure Knee Goniometric Range of Motion Knee ROM Limitations Comments Limited hamstring ROM bilaterally, did not formally measure Ankle and Foot Goniometric Range of Motion Ankle and Foot ROM Limitations Comments Limited ankle dorsiflexion ROM bilaterally, did not formally measure PT-OP-M Strength Start: 03/08/24 07:29 Freq: Status: Active Protocol: Document 03/08/24 09:02 NM (Rec: 03/08/24 09:49 NM [id number]) Hip Strength Hip Manual Muscle Testing Right Flexion (L2) 4- Good- Extension (S1) 4- Good- Abduction 4- Good- Adduction 4- Good- External Rotation 4- Good- Internal Rotation 4- Good- Left Flexion (L2) 3+ Fair+ Extension (S1) 3+ Fair+ Abduction 3+ Fair+ Adduction 3+ Fair+ External Rotation 3+ Fair+ Internal Rotation 3+ Fair+ Knee Strength Knee Manual Muscle Testing Right Flexion (S2) 4- Good- Extension (L3) 4- Good- Left Flexion (S2) 4- Good- Extension (L3) 4- Good- Ankle/Foot Strength Ankle and Foot Manual Muscle Testing Right Dorsiflexion (L4) 4 Good Plantarflexion (S1) 4 Good Inversion 4 Good Eversion (S1) 4 Good Comments measured in sitting Left Dorsiflexion (L4) 4 Good Plantarflexion (S1) 4 Good Inversion 4 Good Eversion (S1) 4 Good Comments measured in sitting PT-OP-Q Treatments Start: 03/08/24 07:29 Freq: Status: Active Protocol: Document 04/05/24 10:36 SW (Rec: 04/05/24 11:18 [id number]) Therapeutic Exercises Sitting Exercises STS Equipment Used Chair Reps/Minutes 2x10 Comments cues for ankle DF Side bilateral Resistance level 2 band Equipment Used mirror for visual feedback Reps/Minutes 2x10 Comments cued for neutral ankle instead of inversion Standing Exercises Toe raises Standing Exercise Name Trialed Comments unable to initiate the toe off in standing, switched to seated DF Standing March Side bilateral Resistance LVL 1 Equipment Used B Rail support Reps/Minutes 2x10 Comments Cued for increased height Hip EXT Standing Exercise Name HEP Resistance LVL 1 Equipment Used Rail for support Reps/Minutes x10 Comments Cued for glute act, fatigues stance leg side steps Side bilateral Resistance level 1 band at thighs Reps/Minutes 2x10 ft ea Comments Cued neutral foot/hip calf raise Side bilateral Equipment Used B hand support on rail Reps/Minutes 2x10 Comments Cued for slow eccentric control Neuro Re-Education Treatment Balance Activities Floor balance Details NBOS, WBOS w/HT's, NBOS w/ HTs Comments pt challenged, educated pt on right reactions Foam Details WBOS Surface unstable Equipment @ rail Comments Challenging PATIENT PORTAL REPRESENTATIVE prn PT-OP-T Assessment and Plan Start: 03/08/24 07:29 Freq: Status: Active Protocol: Document 04/05/24 10:36 SW (Rec: 04/05/24 11:18 [id number]) Physical Therapy Assessment Goals Five Impairment transfers Impairment 5 x STS 17 seconds Short Term Goal (STG) Pt will be able to perform at least 10 sit to stands without compensation and without UE assist in order to demonstrate improved BLE strength, initial balance, and safety with transfers 2: 10 STS with no UE support . STG Duration 6 weeks 7 Goal Met Admin Secretary Goal (LTG) Pt will be able to perform 5x STS in at least 15 seconds or less without compensation or UE assist in order to meet age -related norms, improve BLE strength, initial balance, and safety with transfers LTG Duration 12 weeks Four Impairment ambulation distance Impairment 2 MWT 206 ft with 3 wheeled walker Short Term Goal (STG) Pt will be able to ambulate at least 40 feet further (MDC) on 2 MWT using LRAD in order to demonstrate improved BLE strength, endurance, and activity tolerance. 03/22 149'. Decreased in distance most likely due to pacing. STG Duration 6 weeks Usp Goal (LTG) Pt will be able to complete 6 MWT using LRAD in order to demonstrate improved BLE strength, endurance, and activity tolerance. LTG Duration 12 weeks Three Impairment fear of falling Usp Goal (LTG) Pt will improve ABC score to > 60% in order to demonstrate improved confidence related to not falling during ADLs/IADLs and during gait LTG Duration 12 weeks Two Impairment balance, static, fall risk Impairment Angeles 19/56 Short Term Goal (STG) Pt will increase Angeles balance score > 30/56 in order to demonstate improved balance during transfers and gait for improved safety and to decrease fall risk with AD use STG Duration 6 weeks Admin Secretary Goal (LTG) Pt will increase Angeles balance score > 38/56 in order to demonstate improved balance during transfers and gait for improved safety and to decrease fall risk with AD use LTG Duration 12 weeks One Impairment balance, gait Impairment TUG 22.3 seconds with 3WW Short Term Goal (STG) Pt will decrease TUG time to less than 18 seconds with LRAD in order to demonstrate improved gait speed and decreased fall risk during household ambulation STG Duration 6 weeks Admin Secretary Goal (LTG) Pt will decrease TUG time to less than 12 seconds with LRAD in order to demonstrate improved gait speed and decreased fall risk during community ambulation LTG Duration 12 weeks Assessment Summary Assessment Progressed pt with weight during standing marches this session to increase strength, pt tolerated well, verbal cues required for eccentric control. Continued balance challenges, pt education on righting reactions with balance, pt hesitant with balance challenges, improved with some encouragement and education. Educated pt on safe ambulation with use of AD for balance deficits. Physical Therapy Plan Frequency and Duration Frequency of Treatment 2x/Week Duration of treatment (weeks) 12 Plan of Care Start Date 03/08/24 Plan of Care End Date 06/03/24 Therapeutic Interventions Therapeutic Interventions Balance Training,Gait Training ,Home Exercise Program,Joint Mobilizations,Manual Therapy, Neuromuscular Re-education, Orthotic/Prosthetic Management ,Patient/Caregiver Education, Self-Care/Home Management,Soft Tissue Mobilization,Taping, Therapeutic Activities, Therapeutic Exercises Modalities Cold Pack/Ice Massage,Hot Packs Next Visit Focus/Plan Next Note Type Treatment Note Next Visit Plan Assess carryover of STS technique. Continue balance training, HT's, NBOS and foam. Global hip strengthening: hip ext, march with band or ankle weights, side steps review, STS vs squat, leg press (low reisistance), transfer training with FWW and cane for safety POC: balance, gait with LRAD on stable and unstable surfaces, resisted ambulation
--- NOTE | 2024-04-12 16:15 | PT.OTN ---
Current Diagnoses Other abnormalities of gait and mobility (04/12/24) Other lack of coordination (04/12/24) Other symptoms and signs involving the musculoskeletal system (04/12/24) Weakness (04/12/24) Physical Therapy Treatment Note PT-OP-A Visit Information Start: 03/08/24 07:29 Freq: Status: Active Protocol: Document 04/12/24 15:16 AB (Rec: 04/12/24 16:15 AB [id number]) Out-Patient Physical Therapy Visit Information Visit Information Visit Type Treatment Note Visit Note Access Code [email or web address] KX after 19 visits Visit Start Time 15:19 Visit Stop Time 16:02 Visit Number 8 Number of TIE IN HAND Visits 4 PT-OP-B Current Condition Start: 03/08/24 07:29 Freq: Status: Active Protocol: Document 03/08/24 09:02 NM (Rec: 03/08/24 09:49 NM [id number]) Current Condition History of Current Condition Current Complaints weakness, decreased mobility, balance History of Current Condition Pt presents to PT with balance and gait abnormalities. She is using a trifold 3WW but has also has 4WW that folds. She live with her , who assists to care for her. She reports difficulty with ambulation. She has had previous PT several years ago for same condition. Pt reports that after last PT, she was able to walk without falling. Uses walker for ambulation in house, otherwise has to reach for things to stabilize. She has had 1 fall a few weeks ago , when ambulating with her walker when she lost her balance and fell on her side. Pt also has a 3 prong cane occasionally to walk. She reports that she has a fear of falling. Pt reports that she has had a stroke, that affected her L side; states that she can use her leg just as well as when she could before. Thinks that she has had the stroke 6 months ago. Pt reports no numbess in her legs. 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 Denies hx of osteoporosis, dizziness, vertigo, no fractures. She is blood pressure medication. Prior Treatments and Tests previous PT for same condition Treatment Goals Patient/Caregiver Goals walk without an AD Current Functional Impairments (Reported) Functional Limitations- ADL's dressing sitting down IND Functional Limitations- Mobility/Gait uses AD to ambulate stairs leading up to house (R rails) and in the home (b rails) PT-OP-C Subjective Start: 03/08/24 07:29 Freq: Status: Active Protocol: Document 04/12/24 15:16 AB (Rec: 04/12/24 16:15 AB [id number]) OP-PT Subjective Patient Comments Patient Comments Patient reports she has had no falls since previous session, is very careful. Patient reports performing the exercise 3 X a week. PT-OP-D Balance Start: 03/08/24 07:29 Freq: Status: Active Protocol: Document 03/08/24 09:02 NM (Rec: 03/08/24 09:49 NM [id number]) Balance Tests Angeles Balance Test Angeles Balance Test Score 19/56 PT-OP-E Functional Tests Start: 03/08/24 07:29 Freq: Status: Active Protocol: Document 03/08/24 09:02 NM (Rec: 03/08/24 09:49 NM [id number]) Functional Tests 2 Minute Walk Test Distance 206 ft Device Used 3WW 30 Second Sit to Stand Test Score 9 STS Comments uses HS to stabilize; no hands ; 18 chair Five Times Sit to Stand Test Score 17 seconds Comments uses HS to stabilize; 18 chair Timed Up and Go (TUG) Score 22.3 sec Comments 3WW PT-OP-F Manual Assessment Start: 03/08/24 07:29 Freq: Status: Active Protocol: Document 03/08/24 09:02 NM (Rec: 03/08/24 09:49 NM [id number]) Manual Assessments Soft Tissue Assessment Soft Tissue Mobility Assessment Decreased HS and heel cord length bilaterally Joint Mobility Assessment Joint Mobility Assessment Decreased ankle mobility, hip mobility PT-OP-G Mobility & Gait Start: 03/08/24 07:29 Freq: Status: Active Protocol: Document 03/08/24 09:02 NM (Rec: 03/08/24 10:58 NM [id number]) OP Gait Assessment Gait Gait Assistance Required: Standby Assistance Distance (Feet) 206 Assistive Devices Assistive Device Gait Belt,4 Wheeled Walker Gait Deviations General Gait Pattern Decreased Stride Length, Decreased Feet Clearance, Flexed Trunk Factors Limiting Gait Function Factors Limiting Gait Function Decreased Sensation,Decreased Strength,Limited Range of Motion,Poor Balance Comments Gait Comments Demonstrates B hip ER, decreased foot clearance. Does not fully extend knees with gait and shuffles feet. Has increased trunk sway, less foot clearance and shorter stance time on LLE. Holds walker in front of body vs closer to trunk Using 3 wheeled walker PT-OP-H Neuro Start: 03/08/24 07:29 Freq: Status: Active Protocol: Document 03/08/24 09:02 NM (Rec: 03/08/24 09:49 NM [id number]) Coordination Evaluation Upper Extremity Tests Left Pronation/Supination Test Normal Performance Right Pronation/Supination Test Normal Performance Lower Extremity Tests Left Heel on Augustin Test Normal Performance Foot Tapping Test Normal Performance Right Heel on Augustin Test Normal Performance Foot Tapping Test Normal Performance Vital Signs Comments Vital Signs Comments seated R arm, restin/72 mmHg, 90 spO2, 61 bpm PT-OP-J Posture/Palpation/Skin Start: 03/08/24 07:29 Freq: Status: Active Protocol: Document 03/08/24 09:02 NM (Rec: 03/08/24 09:49 NM [id number]) Posture Evaluation Position Standing Head/C-Spine Posture Forward Head T-Spine Posture Increased Kyphosis L-Spine Posture Increased Lordosis Pelvis Posture Anteriorly Tilted Hip Posture (L) Externally Rotated,(R) Externally Rotated Knee Posture (L) Genu Valgus,(R) Genu Valgus,(L) Excess Flexion,(R) Excess Flexion Ankle/Foot Posture (L) Supinated,(R) Supinated Comments Posture Comments Demos forward PAULO, in standing pt has L trunk lean. Kyphotic PT-OP-K Range of Motion Start: 03/08/24 07:29 Freq: Status: Active Protocol: Document 03/08/24 09:02 NM (Rec: 03/08/24 10:20 NM [id number]) Hip Goniometric Range of Motion Hip ROM Limitations Comments Limited hip flexion ROM bilaterally, did not formally measure Knee Goniometric Range of Motion Knee ROM Limitations Comments Limited hamstring ROM bilaterally, did not formally measure Ankle and Foot Goniometric Range of Motion Ankle and Foot ROM Limitations Comments Limited ankle dorsiflexion ROM bilaterally, did not formally measure PT-OP-M Strength Start: 03/08/24 07:29 Freq: Status: Active Protocol: Document 03/08/24 09:02 NM (Rec: 03/08/24 09:49 NM [id number]) Hip Strength Hip Manual Muscle Testing Right Flexion (L2) 4- Good- Extension (S1) 4- Good- Abduction 4- Good- Adduction 4- Good- External Rotation 4- Good- Internal Rotation 4- Good- Left Flexion (L2) 3+ Fair+ Extension (S1) 3+ Fair+ Abduction 3+ Fair+ Adduction 3+ Fair+ External Rotation 3+ Fair+ Internal Rotation 3+ Fair+ Knee Strength Knee Manual Muscle Testing Right Flexion (S2) 4- Good- Extension (L3) 4- Good- Left Flexion (S2) 4- Good- Extension (L3) 4- Good- Ankle/Foot Strength Ankle and Foot Manual Muscle Testing Right Dorsiflexion (L4) 4 Good Plantarflexion (S1) 4 Good Inversion 4 Good Eversion (S1) 4 Good Comments measured in sitting Left Dorsiflexion (L4) 4 Good Plantarflexion (S1) 4 Good Inversion 4 Good Eversion (S1) 4 Good Comments measured in sitting PT-OP-Q Treatments Start: 03/08/24 07:29 Freq: Status: Active Protocol: Document 04/12/24 15:16 AB (Rec: 04/12/24 16:15 AB [id number]) Gym Equipment Shuttle Balance red Details normal PAULO with and without head turns and visual scanning Comments CGA to minimal assist. Therapeutic Exercises Sitting Exercises seated march Side bilateral Resistance 2 lb Reps/Minutes X16 STS Equipment Used Chair Reps/Minutes 2x10 Comments cues for hip abduction Sitting Exercise Name clams HEP Side bilateral Resistance level 3 band around thighs Reps/Minutes X10 each LE then one one min hold LAQ Sitting Exercise Name HEP Side bilateral Resistance level 3 band Reps/Minutes X10 Comments Self corrects for posture Standing Exercises standing hip ext with band Standing Exercise Name with UE support Resistance level 3 band above knees Reps/Minutes X10 Comments verbal and visual cues Neuro Re-Education Treatment Balance Activities marching on blue cushion Details hands above bars CGA Reps/Duration X15 steps Foam Details WBOS and Romberg Surface unstable Equipment @ rail Comments hands above bars, CGA step up taps Details fwd, CGA hands above bars Surface stable Equipment 6 inch step Reps/Duration X12 tandem stepping Reps/Duration 10 feet X 2 Comments CGA, verbal cues for hands above bars, but increased use of bars PT-OP-T Assessment and Plan Start: 03/08/24 07:29 Freq: Status: Active Protocol: Document 04/12/24 15:16 AB (Rec: 04/12/24 16:15 AB [id number]) Physical Therapy Assessment Goals Five Impairment transfers Impairment 5 x STS 17 seconds Short Term Goal (STG) Pt will be able to perform at least 10 sit to stands without compensation and without UE assist in order to demonstrate improved BLE strength, initial balance, and safety with transfers 03/22: 10 STS with no UE support . STG Duration 6 weeks 7 Goal Met Assisted Goal (LTG) Pt will be able to perform 5x STS in at least 15 seconds or less without compensation or UE assist in order to meet age -related norms, improve BLE strength, initial balance, and safety with transfers LTG Duration 12 weeks Four Impairment ambulation distance Impairment 2 MWT 206 ft with 3 wheeled walker Short Term Goal (STG) Pt will be able to ambulate at least 40 feet further (MDC) on 2 MWT using LRAD in order to demonstrate improved BLE strength, endurance, and activity tolerance. 03/22 149'. Decreased in distance most likely due to pacing. STG Duration 6 weeks Assisted Goal (LTG) Pt will be able to complete 6 MWT using LRAD in order to demonstrate improved BLE strength, endurance, and activity tolerance. LTG Duration 12 weeks Three Impairment fear of falling Computer Technical Support Specialist Goal (LTG) Pt will improve ABC score to > 60% in order to demonstrate improved confidence related to not falling during ADLs/IADLs and during gait LTG Duration 12 weeks Two Impairment balance, static, fall risk Impairment Angeles 19/56 Short Term Goal (STG) Pt will increase Angeles balance score > 30/56 in order to demonstate improved balance during transfers and gait for improved safety and to decrease fall risk with AD use STG Duration 6 weeks Assisted Goal (LTG) Pt will increase Angeles balance score > 38/56 in order to demonstate improved balance during transfers and gait for improved safety and to decrease fall risk with AD use LTG Duration 12 weeks One Impairment balance, gait Impairment TUG 22.3 seconds with 3WW Short Term Goal (STG) Pt will decrease TUG time to less than 18 seconds with LRAD in order to demonstrate improved gait speed and decreased fall risk during household ambulation STG Duration 6 weeks Computer Technical Support Specialist Goal (LTG) Pt will decrease TUG time to less than 12 seconds with LRAD in order to demonstrate improved gait speed and decreased fall risk during community ambulation LTG Duration 12 weeks Assessment Summary Assessment Good return demonstration for sit to stand without UE use post patient ed mechanics of sit to stand, improved hip hinge and LE positioning. Physical Therapy Plan Frequency and Duration Frequency of Treatment 2x/Week Duration of treatment (weeks) 12 Plan of Care Start Date 03/08/24 Plan of Care End Date 06/03/24 Next Visit Focus/Plan Next Note Type Treatment Note Next Visit Plan Assess HEP asya for STS Continue balance training, HT' s, NBOS and foam. Global hip strengthening: hip ext with band, march with band or ankle weights, side steps review, STS vs squat, leg press (low reisistance), transfer training with FWW and cane for safety POC: balance, gait with LRAD on stable and unstable surfaces, resisted ambulation
--- NOTE | 2024-04-29 15:53 | PT.OTN ---
Current Diagnoses Other abnormalities of gait and mobility (04/29/24) Other lack of coordination (04/29/24) Other symptoms and signs involving the musculoskeletal system (04/29/24) Weakness (04/29/24) Physical Therapy Treatment Note PT-OP-A Visit Information Start: 03/08/24 07:29 Freq: Status: Active Protocol: Document 04/29/24 14:35 NM (Rec: 04/29/24 15:28 NM [id number]) Out-Patient Physical Therapy Visit Information Visit Information Visit Type Progress Note Visit Note KX after 19 visits Visit Start Time 14:36 Visit Stop Time 15:15 Visit Number 9 Evaluation Information Evaluation Date 03/08/24 Precautions Precautions fall risk, monitor vitals PT-OP-B Current Condition Start: 03/08/24 07:29 Freq: Status: Active Protocol: Document 03/08/24 09:02 NM (Rec: 03/08/24 09:49 NM [id number]) Current Condition History of Current Condition Current Complaints weakness, decreased mobility, balance History of Current Condition Pt presents to PT with balance and gait abnormalities. She is using a trifold 3WW but has also has 4WW that folds. She live with her , who assists to care for her. She reports difficulty with ambulation. She has had previous PT several years ago for same condition. Pt reports that after last PT, she was able to walk without falling. Uses walker for ambulation in house, otherwise has to reach for things to stabilize. She has had 1 fall a few weeks ago , when ambulating with her walker when she lost her balance and fell on her side. Pt also has a 3 prong cane occasionally to walk. She reports that she has a fear of falling. Pt reports that she has had a stroke, that affected her L side; states that she can use her leg just as well as when she could before. Thinks that she has had the stroke 6 months ago. Pt reports no numbess in her legs. 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 Denies hx of osteoporosis, dizziness, vertigo, no fractures. She is blood pressure medication. Prior Treatments and Tests previous PT for same condition Treatment Goals Patient/Caregiver Goals walk without an AD Current Functional Impairments (Reported) Functional Limitations- ADL's dressing sitting down IND Functional Limitations- Mobility/Gait uses AD to ambulate stairs leading up to house (R rails) and in the home (b rails) PT-OP-C Subjective Start: 03/08/24 07:29 Freq: Status: Active Protocol: Document 04/29/24 14:35 NM (Rec: 04/29/24 15:28 NM [id number]) OP-PT Subjective Patient Comments Patient Comments Pt reports no falls since last session. She is using her 3WW . She wants to get over her fear of falling. Pt has been walking up/down her deck without holding on with hand near the rail, has bene going up/down steps but has been going up/down. Pt wants to strengthen her BLE further. PT-OP-D Balance Start: 03/08/24 07:29 Freq: Status: Active Protocol: Document 03/08/24 09:02 NM (Rec: 03/08/24 09:49 NM [id number]) Balance Tests Angeles Balance Test Angeles Balance Test Score 19/56 PT-OP-E Functional Tests Start: 03/08/24 07:29 Freq: Status: Active Protocol: Document 03/08/24 09:02 NM (Rec: 03/08/24 09:49 NM [id number]) Functional Tests 2 Minute Walk Test Distance 206 ft Device Used 3WW 30 Second Sit to Stand Test Score 9 STS Comments uses HS to stabilize; no hands ; 18 chair Five Times Sit to Stand Test Score 17 seconds Comments uses HS to stabilize; 18 chair Timed Up and Go (TUG) Score 22.3 sec Comments 3WW PT-OP-F Manual Assessment Start: 03/08/24 07:29 Freq: Status: Active Protocol: Document 03/08/24 09:02 NM (Rec: 03/08/24 09:49 NM [id number]) Manual Assessments Soft Tissue Assessment Soft Tissue Mobility Assessment Decreased HS and heel cord length bilaterally Joint Mobility Assessment Joint Mobility Assessment Decreased ankle mobility, hip mobility PT-OP-G Mobility & Gait Start: 03/08/24 07:29 Freq: Status: Active Protocol: Document 03/08/24 09:02 NM (Rec: 03/08/24 10:58 NM [id number]) OP Gait Assessment Gait Gait Assistance Required: Standby Assistance Distance (Feet) 206 Assistive Devices Assistive Device Gait Belt,4 Wheeled Walker Gait Deviations General Gait Pattern Decreased Stride Length, Decreased Feet Clearance, Flexed Trunk Factors Limiting Gait Function Factors Limiting Gait Function Decreased Sensation,Decreased Strength,Limited Range of Motion,Poor Balance Comments Gait Comments Demonstrates B hip ER, decreased foot clearance. Does not fully extend knees with gait and shuffles feet. Has increased trunk sway, less foot clearance and shorter stance time on LLE. Holds walker in front of body vs closer to trunk Using 3 wheeled walker PT-OP-H Neuro Start: 03/08/24 07:29 Freq: Status: Active Protocol: Document 03/08/24 09:02 NM (Rec: 03/08/24 09:49 NM [id number]) Coordination Evaluation Upper Extremity Tests Left Pronation/Supination Test Normal Performance Right Pronation/Supination Test Normal Performance Lower Extremity Tests Left Heel on Augustin Test Normal Performance Foot Tapping Test Normal Performance Right Heel on Augustin Test Normal Performance Foot Tapping Test Normal Performance Vital Signs Comments Vital Signs Comments seated R arm, restin/72 mmHg, 90 spO2, 61 bpm PT-OP-J Posture/Palpation/Skin Start: 03/08/24 07:29 Freq: Status: Active Protocol: Document 03/08/24 09:02 NM (Rec: 03/08/24 09:49 NM [id number]) Posture Evaluation Position Standing Head/C-Spine Posture Forward Head T-Spine Posture Increased Kyphosis L-Spine Posture Increased Lordosis Pelvis Posture Anteriorly Tilted Hip Posture (L) Externally Rotated,(R) Externally Rotated Knee Posture (L) Genu Valgus,(R) Genu Valgus,(L) Excess Flexion,(R) Excess Flexion Ankle/Foot Posture (L) Supinated,(R) Supinated Comments Posture Comments Demos forward PAULO, in standing pt has L trunk lean. Kyphotic PT-OP-K Range of Motion Start: 03/08/24 07:29 Freq: Status: Active Protocol: Document 03/08/24 09:02 NM (Rec: 03/08/24 10:20 NM [id number]) Hip Goniometric Range of Motion Hip ROM Limitations Comments Limited hip flexion ROM bilaterally, did not formally measure Knee Goniometric Range of Motion Knee ROM Limitations Comments Limited hamstring ROM bilaterally, did not formally measure Ankle and Foot Goniometric Range of Motion Ankle and Foot ROM Limitations Comments Limited ankle dorsiflexion ROM bilaterally, did not formally measure PT-OP-M Strength Start: 03/08/24 07:29 Freq: Status: Active Protocol: Document 04/29/24 14:35 NM (Rec: 04/29/24 15:36 NM [id number]) Hip Strength Hip Manual Muscle Testing Right Flexion (L2) 4- Good- Extension (S1) 4 Good Abduction 4 Good Adduction 4 Good External Rotation 4- Good- Internal Rotation 4- Good- Comments IE: 4-/5 for all Left Flexion (L2) 4- Good- Extension (S1) 4- Good- Abduction 4- Good- Adduction 4- Good- External Rotation 4- Good- Internal Rotation 4- Good- Comments IE: 3+/5 Knee Strength Knee Manual Muscle Testing Right Flexion (S2) 4- Good- Extension (L3) 4- Good- Left Flexion (S2) 4- Good- Extension (L3) 4- Good- PT-OP-Q Treatments Start: 03/08/24 07:29 Freq: Status: Active Protocol: Document 04/29/24 14:35 NM (Rec: 04/29/24 15:28 NM [id number]) Therapeutic Exercises Sitting Exercises STS Side bilateral Equipment Used low plinth Reps/Minutes 2x10 Comments arms in front for fwd wt shift , no hand use; requires increased time ankle DF Side bilateral Reps/Minutes 10x5 holds Comments following stair taps Standing Exercises calf stretch Standing Exercise Name gastrocnemius Side bilateral Equipment Used MALATHI Reps/Minutes 60 ea Neuro Re-Education Treatment Balance Activities TUG Equipment 3WW Comments 3 reps: 19,19, 32 sec Angeles Reps/Duration 33/56 unstable surface Surface blue mat Comments 1. gait, 2x8 with spc and min A to maintain balance 2. step up onto mat, 4 reps with spc and min A to maintain balance 3. ball toss while standing on mat, trying to hit cones; min A with 3 instances of mod A to maintain balance (a) with feet in normal stance , 2 minutes (b) in staggered stance, 2 minutes step up taps Comments 1. step tap to 6 step, 10 ea non-alt with 1 finger support on ea hand for balance, CGA to steady. LLE in stance more challenging than RLE 2. step tap w/ double tap to 6 step, 10 ea leg, non-alt min A to steady, cued for slower motion to maintain control and keep COG over nose -navel Self-Care/Home Management Treatment Education Patient Education Fall Risk,Home Exercise Program Other Education HEP: STS with Suraj () near by Educated to continue using AD at home, not to ambulate w/o AD PT-OP-T Assessment and Plan Start: 03/08/24 07:29 Freq: Status: Active Protocol: Document 04/29/24 14:35 NM (Rec: 04/29/24 15:28 NM [id number]) Physical Therapy Assessment Goals Five Impairment transfers Impairment 5 x STS 17 seconds Short Term Goal (STG) Pt will be able to perform at least 10 sit to stands without compensation and without UE assist in order to demonstrate improved BLE strength, initial balance, and safety with transfers 7/2: 10 STS with no UE support . STG Duration 6 weeks 7 Goal Met Fdc Goal (LTG) Pt will be able to perform 5x STS in at least 15 seconds or less without compensation or UE assist in order to meet age -related norms, improve BLE strength, initial balance, and safety with transfers LTG Duration 12 weeks Four Impairment ambulation distance Impairment 2 MWT 206 ft with 3 wheeled walker Short Term Goal (STG) Pt will be able to ambulate at least 40 feet further (MDC) on 2 MWT using LRAD in order to demonstrate improved BLE strength, endurance, and activity tolerance. 7 149'. Decreased in distance most likely due to pacing. STG Duration 6 weeks Fdc Goal (LTG) Pt will be able to complete 6 MWT using LRAD in order to demonstrate improved BLE strength, endurance, and activity tolerance. LTG Duration 12 weeks Three Impairment fear of falling Fdc Goal (LTG) Pt will improve ABC score to > 60% in order to demonstrate improved confidence related to not falling during ADLs/IADLs and during gait LTG Duration 12 weeks Two Impairment balance, static, fall risk Impairment Angeles 19/56 Short Term Goal (STG) Pt will increase Angeles balance score > 30/56 in order to demonstate improved balance during transfers and gait for improved safety and to decrease fall risk with AD use 04/29/24: 33/56 STG Duration 6 weeks MET Human Resources Operations Director Goal (LTG) Pt will increase Angeles balance score > 38/56 in order to demonstate improved balance during transfers and gait for improved safety and to decrease fall risk with AD use LTG Duration 12 weeks One Impairment balance, gait Impairment TUG 22.3 seconds with 3WW Short Term Goal (STG) Pt will decrease TUG time to less than 18 seconds with LRAD in order to demonstrate improved gait speed and decreased fall risk during household ambulation 04/29/24: 3 reps (32 sec, 19 sec , 19 sec)- average 23 sec w/ 3WW STG Duration 6 weeks NOT MET Fdc Goal (LTG) Pt will decrease TUG time to less than 12 seconds with LRAD in order to demonstrate improved gait speed and decreased fall risk during community ambulation LTG Duration 12 weeks Progress Towards Goals Progress Towards Goals Progressing Toward Goals Assessment Summary Assessment Pt tolerated session well and was challenged by activities, especially maintaining balance on unstable surface. Pt continues to be very visually dependent and requires hand support to maintain balance if in situation where pt needs to have narrow PAULO, such as stepping or stairs. Trialed ball toss while standing on mat, pt requires min A to mod A to stabilize and prevent fall. Continues to have difficulty with maintaining single leg balance long enough for steps during taps. Pt's Angeles score improved. Her TUG time did not change from evaluation when taking average , but able to perform in 19 secs; loses most time on turns . Pt's STS improved with minimal cueing to scoot more forward in chair and for anterior weight shift. Calf stretch and ankle dorsiflexion to promote better foot clearance during gait and to help reduce discomfort in calves at night. Frequency and Duration Frequency of Treatment 2x/Week Duration of treatment (weeks) 12 Plan of Care Start Date 03/08/24 Plan of Care End Date 06/03/24 Therapeutic Interventions Therapeutic Interventions Balance Training,Gait Training ,Home Exercise Program,Joint Mobilizations,Manual Therapy, Neuromuscular Re-education, Orthotic/Prosthetic Management ,Patient/Caregiver Education, Self-Care/Home Management,Soft Tissue Mobilization,Taping, Therapeutic Activities, Therapeutic Exercises Modalities Cold Pack/Ice Massage,Hot Packs Next Visit Focus/Plan Next Note Type Treatment Note Next Visit Plan leg press, foam, stairs, HT's, NBOS and foam. Global hip strengthening: hip ext with band, march with band or ankle weights, side steps review, STS vs squat, leg press (low reisistance), transfer training with FWW and cane for safety POC: balance, gait with LRAD on stable and unstable surfaces, resisted ambulation
--- NOTE | 2024-05-03 15:33 | PT.OTN ---
Current Diagnoses Other abnormalities of gait and mobility (05/03/24) Other lack of coordination (05/03/24) Other symptoms and signs involving the musculoskeletal system (05/03/24) Weakness (05/03/24) Physical Therapy Treatment Note PT-OP-A Visit Information Start: 03/08/24 07:29 Freq: Status: Active Protocol: Document 05/03/24 14:34 NM (Rec: 05/03/24 15:33 NM [id number]) Out-Patient Physical Therapy Visit Information Visit Information Visit Type Treatment Note Visit Note KX after 19 visits Visit Start Time 14:35 Visit Stop Time 15:15 Visit Number 10 Evaluation Information Evaluation Date 03/08/24 Precautions Precautions fall risk, monitor vitals PT-OP-B Current Condition Start: 03/08/24 07:29 Freq: Status: Active Protocol: Document 03/08/24 09:02 NM (Rec: 03/08/24 09:49 NM [id number]) Current Condition History of Current Condition Current Complaints weakness, decreased mobility, balance History of Current Condition Pt presents to PT with balance and gait abnormalities. She is using a trifold 3WW but has also has 4WW that folds. She live with her , who assists to care for her. She reports difficulty with ambulation. She has had previous PT several years ago for same condition. Pt reports that after last PT, she was able to walk without falling. Uses walker for ambulation in house, otherwise has to reach for things to stabilize. She has had 1 fall a few weeks ago , when ambulating with her walker when she lost her balance and fell on her side. Pt also has a 3 prong cane occasionally to walk. She reports that she has a fear of falling. Pt reports that she has had a stroke, that affected her L side; states that she can use her leg just as well as when she could before. Thinks that she has had the stroke 6 months ago. Pt reports no numbess in her legs. 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 Denies hx of osteoporosis, dizziness, vertigo, no fractures. She is blood pressure medication. Prior Treatments and Tests previous PT for same condition Treatment Goals Patient/Caregiver Goals walk without an AD Current Functional Impairments (Reported) Functional Limitations- ADL's dressing sitting down IND Functional Limitations- Mobility/Gait uses AD to ambulate stairs leading up to house (R rails) and in the home (b rails) PT-OP-C Subjective Start: 03/08/24 07:29 Freq: Status: Active Protocol: Document 05/03/24 14:34 NM (Rec: 05/03/24 15:33 NM [id number]) OP-PT Subjective Patient Comments Patient Comments Pt reports doing well after last session. States felt challenged. Reports that had a stroke recently and is now using a spc himself PT-OP-D Balance Start: 03/08/24 07:29 Freq: Status: Active Protocol: Document 03/08/24 09:02 NM (Rec: 03/08/24 09:49 NM [id number]) Balance Tests Angeles Balance Test Angeles Balance Test Score 19/56 PT-OP-E Functional Tests Start: 03/08/24 07:29 Freq: Status: Active Protocol: Document 03/08/24 09:02 NM (Rec: 03/08/24 09:49 NM [id number]) Functional Tests 2 Minute Walk Test Distance 206 ft Device Used 3WW 30 Second Sit to Stand Test Score 9 STS Comments uses HS to stabilize; no hands ; 18 chair Five Times Sit to Stand Test Score 17 seconds Comments uses HS to stabilize; 18 chair Timed Up and Go (TUG) Score 22.3 sec Comments 3WW PT-OP-F Manual Assessment Start: 03/08/24 07:29 Freq: Status: Active Protocol: Document 03/08/24 09:02 NM (Rec: 03/08/24 09:49 NM [id number]) Manual Assessments Soft Tissue Assessment Soft Tissue Mobility Assessment Decreased HS and heel cord length bilaterally Joint Mobility Assessment Joint Mobility Assessment Decreased ankle mobility, hip mobility PT-OP-G Mobility & Gait Start: 03/08/24 07:29 Freq: Status: Active Protocol: Document 03/08/24 09:02 NM (Rec: 03/08/24 10:58 NM [id number]) OP Gait Assessment Gait Gait Assistance Required: Standby Assistance Distance (Feet) 206 Assistive Devices Assistive Device Gait Belt,4 Wheeled Walker Gait Deviations General Gait Pattern Decreased Stride Length, Decreased Feet Clearance, Flexed Trunk Factors Limiting Gait Function Factors Limiting Gait Function Decreased Sensation,Decreased Strength,Limited Range of Motion,Poor Balance Comments Gait Comments Demonstrates B hip ER, decreased foot clearance. Does not fully extend knees with gait and shuffles feet. Has increased trunk sway, less foot clearance and shorter stance time on LLE. Holds walker in front of body vs closer to trunk Using 3 wheeled walker PT-OP-H Neuro Start: 03/08/24 07:29 Freq: Status: Active Protocol: Document 03/08/24 09:02 NM (Rec: 03/08/24 09:49 NM [id number]) Coordination Evaluation Upper Extremity Tests Left Pronation/Supination Test Normal Performance Right Pronation/Supination Test Normal Performance Lower Extremity Tests Left Heel on Augustin Test Normal Performance Foot Tapping Test Normal Performance Right Heel on Augustin Test Normal Performance Foot Tapping Test Normal Performance Vital Signs Comments Vital Signs Comments seated R arm, restin/72 mmHg, 90 spO2, 61 bpm PT-OP-J Posture/Palpation/Skin Start: 03/08/24 07:29 Freq: Status: Active Protocol: Document 03/08/24 09:02 NM (Rec: 03/08/24 09:49 NM [id number]) Posture Evaluation Position Standing Head/C-Spine Posture Forward Head T-Spine Posture Increased Kyphosis L-Spine Posture Increased Lordosis Pelvis Posture Anteriorly Tilted Hip Posture (L) Externally Rotated,(R) Externally Rotated Knee Posture (L) Genu Valgus,(R) Genu Valgus,(L) Excess Flexion,(R) Excess Flexion Ankle/Foot Posture (L) Supinated,(R) Supinated Comments Posture Comments Demos forward PAULO, in standing pt has L trunk lean. Kyphotic PT-OP-K Range of Motion Start: 03/08/24 07:29 Freq: Status: Active Protocol: Document 03/08/24 09:02 NM (Rec: 03/08/24 10:20 NM [id number]) Hip Goniometric Range of Motion Hip ROM Limitations Comments Limited hip flexion ROM bilaterally, did not formally measure Knee Goniometric Range of Motion Knee ROM Limitations Comments Limited hamstring ROM bilaterally, did not formally measure Ankle and Foot Goniometric Range of Motion Ankle and Foot ROM Limitations Comments Limited ankle dorsiflexion ROM bilaterally, did not formally measure PT-OP-M Strength Start: 03/08/24 07:29 Freq: Status: Active Protocol: Document 04/29/24 14:35 NM (Rec: 04/29/24 15:36 NM [id number]) Hip Strength Hip Manual Muscle Testing Right Flexion (L2) 4- Good- Extension (S1) 4 Good Abduction 4 Good Adduction 4 Good External Rotation 4- Good- Internal Rotation 4- Good- Comments IE: 4-/5 for all Left Flexion (L2) 4- Good- Extension (S1) 4- Good- Abduction 4- Good- Adduction 4- Good- External Rotation 4- Good- Internal Rotation 4- Good- Comments IE: 3+/5 Knee Strength Knee Manual Muscle Testing Right Flexion (S2) 4- Good- Extension (L3) 4- Good- Left Flexion (S2) 4- Good- Extension (L3) 4- Good- PT-OP-Q Treatments Start: 03/08/24 07:29 Freq: Status: Active Protocol: Document 05/03/24 14:34 NM (Rec: 05/03/24 15:33 NM [id number]) Gym Equipment Shuttle Recovery bilateral squat Details cued knee alignment abd with mid foot/ glut fac decrease knee recruitment Resistance 63# (33 navy) Shuttle Recovery Platform Stable Reps/Time 2x10 Therapeutic Exercises Sitting Exercises STS Side bilateral Resistance level 2 band at thighs to prevent valgus Equipment Used standard chair Reps/Minutes 2x10 Comments arms in front for fwd wt shift , no hand use; requires increased time Standing Exercises resisted stepping Standing Exercise Name fwd and retro Side bilateral Resistance level 2 band above knees Equipment Used hand support 1 on ballet bar Reps/Minutes 3x15 ft ea direction Comments CGA; educated to not perform at home step up Standing Exercise Name 4 Side bilateral Equipment Used 1 hand assist, CGA to steady Reps/Minutes 10 ea Comments end of session, fatiguing; cued for safety and form, control side steps Standing Exercise Name re-added to HEP w/ handout Side bilateral Resistance level 2 band at below knees Equipment Used 2 hand support Reps/Minutes 2x15 ft ea Comments Cued neutral foot/hip Neuro Re-Education Treatment Balance Activities head movements Surface stable surface Reps/Duration 2 min ea Comments 1. horizontal turns 2. vertical turns 3. ball toss to ground with BUE w/o looking CGA to stabilize and cued to maintain PAULO wider with complete foot flat contact balloon volley Reps/Duration 4 minutes total Comments 1. stable 2. unstable surface (blue pillow) min A to stabilize on pillow and initially while on stable surface, reaching outside PAULO. Pt has difficulty with re- establishing PAULO unstable surface Surface blue foam pad Comments guzmán bag toss into bucket while standing on foam pads in normal PAULO Pt cued for weight shifting, demos strong anterior and posterior shifts with minimal control. Requires min A to stabilize while tossing guzmán bags Foam Details CGA, hands hovering above bars Comments Fwd step ups, 5 ea and without UE assistance cued wider PAULO, nose centered over navel PAULO PT-OP-T Assessment and Plan Start: 03/08/24 07:29 Freq: Status: Active Protocol: Document 05/03/24 14:34 NM (Rec: 05/03/24 15:33 NM [id number]) Physical Therapy Assessment Goals Five Impairment transfers Impairment 5 x STS 17 seconds Short Term Goal (STG) Pt will be able to perform at least 10 sit to stands without compensation and without UE assist in order to demonstrate improved BLE strength, initial balance, and safety with transfers 7/2: 10 STS with no UE support . STG Duration 6 weeks 7 Goal Met Prison Goal (LTG) Pt will be able to perform 5x STS in at least 15 seconds or less without compensation or UE assist in order to meet age -related norms, improve BLE strength, initial balance, and safety with transfers LTG Duration 12 weeks Four Impairment ambulation distance Impairment 2 MWT 206 ft with 3 wheeled walker Short Term Goal (STG) Pt will be able to ambulate at least 40 feet further (MDC) on 2 MWT using LRAD in order to demonstrate improved BLE strength, endurance, and activity tolerance. 7 149'. Decreased in distance most likely due to pacing. STG Duration 6 weeks Customer Service Security Officer Goal (LTG) Pt will be able to complete 6 MWT using LRAD in order to demonstrate improved BLE strength, endurance, and activity tolerance. LTG Duration 12 weeks Three Impairment fear of falling Prison Goal (LTG) Pt will improve ABC score to > 60% in order to demonstrate improved confidence related to not falling during ADLs/IADLs and during gait LTG Duration 12 weeks Two Impairment balance, static, fall risk Impairment Angeles 19/56 Short Term Goal (STG) Pt will increase Angeles balance score > 30/56 in order to demonstate improved balance during transfers and gait for improved safety and to decrease fall risk with AD use 04/29/24: 33/56 STG Duration 6 weeks MET [employer] Service Security Officer Goal (LTG) Pt will increase [place] balance score > 38/56 in order to demonstate improved balance during transfers and gait for improved safety and to decrease fall risk with AD use LTG Duration 12 weeks One Impairment balance, gait Impairment TUG 22.3 seconds with 3WW Short Term Goal (STG) Pt will decrease TUG time to less than 18 seconds with LRAD in order to demonstrate improved gait speed and decreased fall risk during household ambulation 04/29/24: 3 reps (32 sec, 19 sec , 19 sec)- average 23 sec w/ 3WW STG Duration 6 weeks NOT MET Prison Goal (LTG) Pt will decrease TUG time to less than 12 seconds with LRAD in order to demonstrate improved gait speed and decreased fall risk during community ambulation LTG Duration 12 weeks Assessment Summary Assessment Pt tolerated session well and demonstrates improved control with STS. Added band during STS with minor cues to prevent knee valgus, in addition to occasional cue for more anterior weight shift. Pt also demonstrates larger steps during resisted stepping, able to progress band position during lateral stepping. Pt has difficulty with shifting weight while on both stable and unstable surfaces, in addition to delyaed balance reactions. Requires at least min A to correct balance along with cues to maintain wider PAULO and complete foot flat contact with ground; pt unable to self-correct when not supporting self. She continues to be very visually dependent to maintain balance during activities and gait. Pt would benefit from skilled PT for progressive strengthening, gait, and balance training in order to improve activity tolerance, decrease fall risk. Physical Therapy Plan Frequency and Duration Frequency of Treatment 2x/Week Duration of treatment (weeks) 12 Plan of Care Start Date 03/08/24 Plan of Care End Date 06/03/24 Therapeutic Interventions Therapeutic Interventions Balance Training,Gait Training ,Home Exercise Program,Joint Mobilizations,Manual Therapy, Neuromuscular Re-education, Orthotic/Prosthetic Management ,Patient/Caregiver Education, Self-Care/Home Management,Soft Tissue Mobilization,Taping, Therapeutic Activities, Therapeutic Exercises Modalities Cold Pack/Ice Massage,Hot Packs Next Visit Focus/Plan Next Note Type Treatment Note Next Visit Plan 2 MWT, leg press, step up, lateral step up, HEP, foam, stairs, HT's, NBOS and foam. Global hip strengthening: hip ext with band, march with band or ankle weights, side steps review, STS vs squat, leg press (low reisistance), transfer training with FWW and cane for safety POC: balance, gait with LRAD on stable and unstable surfaces, resisted ambulation
--- NOTE | 2024-05-06 15:33 | PT.OTN ---
Current Diagnoses Other abnormalities of gait and mobility (05/06/24) Other lack of coordination (05/06/24) Other symptoms and signs involving the musculoskeletal system (05/06/24) Weakness (05/06/24) Physical Therapy Treatment Note PT-OP-A Visit Information Start: 03/08/24 07:29 Freq: Status: Active Protocol: Document 05/06/24 14:35 NM (Rec: 05/06/24 15:33 NM [id number]) Out-Patient Physical Therapy Visit Information Visit Information Visit Type Treatment Note Visit Note KX after 19 visits Visit Start Time 14:35 Visit Stop Time 15:15 Visit Number 11 PT-OP-B Current Condition Start: 03/08/24 07:29 Freq: Status: Active Protocol: Document 03/08/24 09:02 NM (Rec: 03/08/24 09:49 NM [id number]) Current Condition History of Current Condition Current Complaints weakness, decreased mobility, balance History of Current Condition Pt presents to PT with balance and gait abnormalities. She is using a trifold 3WW but has also has 4WW that folds. She live with her , who assists to care for her. She reports difficulty with ambulation. She has had previous PT several years ago for same condition. Pt reports that after last PT, she was able to walk without falling. Uses walker for ambulation in house, otherwise has to reach for things to stabilize. She has had 1 fall a few weeks ago , when ambulating with her walker when she lost her balance and fell on her side. Pt also has a 3 prong cane occasionally to walk. She reports that she has a fear of falling. Pt reports that she has had a stroke, that affected her L side; states that she can use her leg just as well as when she could before. Thinks that she has had the stroke 6 months ago. Pt reports no numbess in her legs. 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 Denies hx of osteoporosis, dizziness, vertigo, no fractures. She is blood pressure medication. Prior Treatments and Tests previous PT for same condition Treatment Goals Patient/Caregiver Goals walk without an AD Current Functional Impairments (Reported) Functional Limitations- ADL's dressing sitting down IND Functional Limitations- Mobility/Gait uses AD to ambulate stairs leading up to house (R rails) and in the home (b rails) PT-OP-C Subjective Start: 06/18/24 07:29 Freq: Status: Active Protocol: Document 05/06/24 14:35 NM (Rec: 05/06/24 15:33 NM [id number]) OP-PT Subjective Patient Comments Patient Comments Pt reports that she felt well after last session. States tried her HEP including side steps at her rail and STS. She reports HEP going well. PT-OP-D Balance Start: 03/08/24 07:29 Freq: Status: Active Protocol: Document 03/08/24 09:02 NM (Rec: 03/08/24 09:49 NM [id number]) Balance Tests Angeles Balance Test Angeles Balance Test Score 19/56 PT-OP-E Functional Tests Start: 03/08/24 07:29 Freq: Status: Active Protocol: Document 03/08/24 09:02 NM (Rec: 03/08/24 09:49 NM [id number]) Functional Tests 2 Minute Walk Test Distance 206 ft Device Used 3WW 30 Second Sit to Stand Test Score 9 STS Comments uses HS to stabilize; no hands ; 18 chair Five Times Sit to Stand Test Score 17 seconds Comments uses HS to stabilize; 18 chair Timed Up and Go (TUG) Score 22.3 sec Comments 3WW PT-OP-F Manual Assessment Start: 03/08/24 07:29 Freq: Status: Active Protocol: Document 03/08/24 09:02 NM (Rec: 03/08/24 09:49 NM [id number]) Manual Assessments Soft Tissue Assessment Soft Tissue Mobility Assessment Decreased HS and heel cord length bilaterally Joint Mobility Assessment Joint Mobility Assessment Decreased ankle mobility, hip mobility PT-OP-G Mobility & Gait Start: 03/08/24 07:29 Freq: Status: Active Protocol: Document 03/08/24 09:02 NM (Rec: 03/08/24 10:58 NM [id number]) OP Gait Assessment Gait Gait Assistance Required: Standby Assistance Distance (Feet) 206 Assistive Devices Assistive Device Gait Belt,4 Wheeled Walker Gait Deviations General Gait Pattern Decreased Stride Length, Decreased Feet Clearance, Flexed Trunk Factors Limiting Gait Function Factors Limiting Gait Function Decreased Sensation,Decreased Strength,Limited Range of Motion,Poor Balance Comments Gait Comments Demonstrates B hip ER, decreased foot clearance. Does not fully extend knees with gait and shuffles feet. Has increased trunk sway, less foot clearance and shorter stance time on LLE. Holds walker in front of body vs closer to trunk Using 3 wheeled walker PT-OP-H Neuro Start: 03/08/24 07:29 Freq: Status: Active Protocol: Document 03/08/24 09:02 NM (Rec: 03/08/24 09:49 NM [id number]) Coordination Evaluation Upper Extremity Tests Left Pronation/Supination Test Normal Performance Right Pronation/Supination Test Normal Performance Lower Extremity Tests Left Heel on Augustin Test Normal Performance Foot Tapping Test Normal Performance Right Heel on Augustin Test Normal Performance Foot Tapping Test Normal Performance Vital Signs Comments Vital Signs Comments seated R arm, restin/72 mmHg, 90 spO2, 61 bpm PT-OP-J Posture/Palpation/Skin Start: 03/08/24 07:29 Freq: Status: Active Protocol: Document 03/08/24 09:02 NM (Rec: 03/08/24 09:49 NM [id number]) Posture Evaluation Position Standing Head/C-Spine Posture Forward Head T-Spine Posture Increased Kyphosis L-Spine Posture Increased Lordosis Pelvis Posture Anteriorly Tilted Hip Posture (L) Externally Rotated,(R) Externally Rotated Knee Posture (L) Genu Valgus,(R) Genu Valgus,(L) Excess Flexion,(R) Excess Flexion Ankle/Foot Posture (L) Supinated,(R) Supinated Comments Posture Comments Demos forward PAULO, in standing pt has L trunk lean. Kyphotic PT-OP-K Range of Motion Start: 03/08/24 07:29 Freq: Status: Active Protocol: Document 03/08/24 09:02 NM (Rec: 03/08/24 10:20 NM [id number]) Hip Goniometric Range of Motion Hip ROM Limitations Comments Limited hip flexion ROM bilaterally, did not formally measure Knee Goniometric Range of Motion Knee ROM Limitations Comments Limited hamstring ROM bilaterally, did not formally measure Ankle and Foot Goniometric Range of Motion Ankle and Foot ROM Limitations Comments Limited ankle dorsiflexion ROM bilaterally, did not formally measure PT-OP-M Strength Start: 03/08/24 07:29 Freq: Status: Active Protocol: Document 04/29/24 14:35 NM (Rec: 04/29/24 15:36 NM [id number]) Hip Strength Hip Manual Muscle Testing Right Flexion (L2) 4- Good- Extension (S1) 4 Good Abduction 4 Good Adduction 4 Good External Rotation 4- Good- Internal Rotation 4- Good- Comments IE: 4-/5 for all Left Flexion (L2) 4- Good- Extension (S1) 4- Good- Abduction 4- Good- Adduction 4- Good- External Rotation 4- Good- Internal Rotation 4- Good- Comments IE: 3+/5 Knee Strength Knee Manual Muscle Testing Right Flexion (S2) 4- Good- Extension (L3) 4- Good- Left Flexion (S2) 4- Good- Extension (L3) 4- Good- PT-OP-Q Treatments Start: 03/08/24 07:29 Freq: Status: Active Protocol: Document 05/06/24 14:35 NM (Rec: 05/06/24 15:33 NM [id number]) Gym Equipment Shuttle Recovery unilateral squat Details cued not lock extension Resistance 25# (navy) Reps/Time 2x15 Therapeutic Exercises Sitting Exercises deadlift Side bilateral Resistance level 1 band under feet Reps/Minutes 10 Comments close SBA Standing Exercises pallof Standing Exercise Name press Side bilateral Resistance level 1 band (1) Reps/Minutes 10 lat pull down Standing Exercise Name straight arm Side bilateral Resistance level 2 band Reps/Minutes 2x10 calf stretch Standing Exercise Name gastrocnemius Side bilateral Equipment Used MALATHI Reps/Minutes 60 ea Neuro Re-Education Treatment Balance Activities hurdles Details CGA- Miguel Equipment fwd hurdles Reps/Duration 6x2 Comments 1. 1 hand support on rail More challenged if RLe leading , cued for weight shifting and control 2. prn hand support on rail RLe harder, hit 1 dmitriy and near stumble obstacle course Details CGA-mod A Surface stable and unstable Comments Hurdles, mat, kicking ball, picking up ball no hand support during hurdles , very challenging for pt to maintain balance, hits dmitriy with 1 leg. Mod A to correct for 1 stumble PT-OP-T Assessment and Plan Start: 03/08/24 07:29 Freq: Status: Active Protocol: Document 05/06/24 14:35 NM (Rec: 05/06/24 15:33 NM [id number]) Physical Therapy Assessment Goals Five Impairment transfers Impairment 5 x STS 17 seconds Short Term Goal (STG) Pt will be able to perform at least 10 sit to stands without compensation and without UE assist in order to demonstrate improved BLE strength, initial balance, and safety with transfers 7/2: 10 STS with no UE support . STG Duration 6 weeks 03/22 Goal Met [facility]ci Goal (LTG) Pt will be able to perform 5x STS in at least 15 seconds or less without compensation or UE assist in order to meet age -related norms, improve BLE strength, initial balance, and safety with transfers LTG Duration 12 weeks Four Impairment ambulation distance Impairment 2 MWT 206 ft with 3 wheeled walker Short Term Goal (STG) Pt will be able to ambulate at least 40 feet further (MDC) on 2 MWT using LRAD in order to demonstrate improved BLE strength, endurance, and activity tolerance. 03/22 149'. Decreased in distance most likely due to pacing. STG Duration 6 weeks Fci Goal (LTG) Pt will be able to complete 6 MWT using LRAD in order to demonstrate improved BLE strength, endurance, and activity tolerance. LTG Duration 12 weeks Three Impairment fear of falling Plater Hot Dip Goal (LTG) Pt will improve ABC score to > 60% in order to demonstrate improved confidence related to not falling during ADLs/IADLs and during gait LTG Duration 12 weeks Two Impairment balance, static, fall risk Impairment Angeles 19/56 Short Term Goal (STG) Pt will increase Angeles balance score > 30/56 in order to demonstate improved balance during transfers and gait for improved safety and to decrease fall risk with AD use 04/29/24: 33/56 STG Duration 6 weeks MET Plater Hot Dip Goal (LTG) Pt will increase Angeles balance score > 38/56 in order to demonstate improved balance during transfers and gait for improved safety and to decrease fall risk with AD use LTG Duration 12 weeks One Impairment balance, gait Impairment TUG 22.3 seconds with 3WW Short Term Goal (STG) Pt will decrease TUG time to less than 18 seconds with LRAD in order to demonstrate improved gait speed and decreased fall risk during household ambulation 04/29/24: 3 reps (32 sec, 19 sec , 19 sec)- average 23 sec w/ 3WW STG Duration 6 weeks NOT MET Fci Goal (LTG) Pt will decrease TUG time to less than 12 seconds with LRAD in order to demonstrate improved gait speed and decreased fall risk during community ambulation LTG Duration 12 weeks Assessment Summary Assessment Pt tolerated session well. Continues to demonstrate improvements in BLE strength. Pt requires cues for form and safety during unilateral squats on leg press. Trialed seated deadlift with band to continue with glute/lumbar strengthening. Trialed hurdles to improve foot clearance and foot flat. Cued for control, weight shift, and to prevent circumduction. Pt challenged by hurdles and unstable surface with obstacle course; has one stumble with mod A to correct. Pt would benefit from skilled PT for progressive strengthening, gait, and balance training in order to improve sfaety during mobility and gait. Physical Therapy Plan Frequency and Duration Frequency of Treatment 2x/Week Duration of treatment (weeks) 12 Plan of Care Start Date 03/08/24 Plan of Care End Date 06/03/24 Therapeutic Interventions Therapeutic Interventions Balance Training,Gait Training ,Home Exercise Program,Joint Mobilizations,Manual Therapy, Neuromuscular Re-education, Orthotic/Prosthetic Management ,Patient/Caregiver Education, Self-Care/Home Management,Soft Tissue Mobilization,Taping, Therapeutic Activities, Therapeutic Exercises Modalities Cold Pack/Ice Massage,Hot Packs Next Visit Focus/Plan Next Note Type Treatment Note Next Visit Plan leg press, step up, hurdles, foam Head movements, obstacle course Global hip strengthening: hip ext with band, march with band or ankle weights, lat, pallof , monster walk in //bars, transfer training with FWW and cane for safety POC: balance, gait with LRAD on stable and unstable surfaces, resisted ambulation
--- NOTE | 2024-05-10 16:44 | PT.OTN ---
Current Diagnoses Other abnormalities of gait and mobility (05/10/24) Other lack of coordination (05/10/24) Other symptoms and signs involving the musculoskeletal system (05/10/24) Weakness (05/10/24) Physical Therapy Treatment Note PT-OP-A Visit Information Start: 03/08/24 07:29 Freq: Status: Active Protocol: Document 05/10/24 14:33 TS (Rec: 05/10/24 16:44 TS [id number]) Out-Patient Physical Therapy Visit Information Visit Information Visit Type Treatment Note Visit Note KX after 19 visits Vitals: Spo2 99%, HR 62 with act. Visit Start Time 14:35 Visit Stop Time 15:15 Visit Number 12 PT-OP-B Current Condition Start: 03/08/24 07:29 Freq: Status: Active Protocol: Document 03/08/24 09:02 NM (Rec: 03/08/24 09:49 NM [id number]) Current Condition History of Current Condition Current Complaints weakness, decreased mobility, balance History of Current Condition Pt presents to PT with balance and gait abnormalities. She is using a trifold 3WW but has also has 4WW that folds. She live with her , who assists to care for her. She reports difficulty with ambulation. She has had previous PT several years ago for same condition. Pt reports that after last PT, she was able to walk without falling. Uses walker for ambulation in house, otherwise has to reach for things to stabilize. She has had 1 fall a few weeks ago , when ambulating with her walker when she lost her balance and fell on her side. Pt also has a 3 prong cane occasionally to walk. She reports that she has a fear of falling. Pt reports that she has had a stroke, that affected her L side; states that she can use her leg just as well as when she could before. Thinks that she has had the stroke 6 months ago. Pt reports no numbess in her legs. 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 Denies hx of osteoporosis, dizziness, vertigo, no fractures. She is blood pressure medication. Prior Treatments and Tests previous PT for same condition Treatment Goals Patient/Caregiver Goals walk without an AD Current Functional Impairments (Reported) Functional Limitations- ADL's dressing sitting down IND Functional Limitations- Mobility/Gait uses AD to ambulate stairs leading up to house (R rails) and in the home (b rails) PT-OP-C Subjective Start: 03/08/24 07:29 Freq: Status: Active Protocol: Document 05/10/24 14:33 TS (Rec: 05/10/24 16:44 TS [id number]) OP-PT Subjective Patient Comments Patient Comments Pt reports she is doing well and she is doing her HEP at home. PT-OP-D Balance Start: 03/08/24 07:29 Freq: Status: Active Protocol: Document 03/08/24 09:02 NM (Rec: 03/08/24 09:49 NM [id number]) Balance Tests Angeles Balance Test Angeles Balance Test Score 19/56 PT-OP-E Functional Tests Start: 03/08/24 07:29 Freq: Status: Active Protocol: Document 03/08/24 09:02 NM (Rec: 03/08/24 09:49 NM [id number]) Functional Tests 2 Minute Walk Test Distance 206 ft Device Used 3WW 30 Second Sit to Stand Test Score 9 STS Comments uses HS to stabilize; no hands ; 18 chair Five Times Sit to Stand Test Score 17 seconds Comments uses HS to stabilize; 18 chair Timed Up and Go (TUG) Score 22.3 sec Comments 3WW PT-OP-F Manual Assessment Start: 03/08/24 07:29 Freq: Status: Active Protocol: Document 03/08/24 09:02 NM (Rec: 03/08/24 09:49 NM [id number]) Manual Assessments Soft Tissue Assessment Soft Tissue Mobility Assessment Decreased HS and heel cord length bilaterally Joint Mobility Assessment Joint Mobility Assessment Decreased ankle mobility, hip mobility PT-OP-G Mobility & Gait Start: 03/08/24 07:29 Freq: Status: Active Protocol: Document 03/08/24 09:02 NM (Rec: 03/08/24 10:58 NM [id number]) OP Gait Assessment Gait Gait Assistance Required: Standby Assistance Distance (Feet) 206 Assistive Devices Assistive Device Gait Belt,4 Wheeled Walker Gait Deviations General Gait Pattern Decreased Stride Length, Decreased Feet Clearance, Flexed Trunk Factors Limiting Gait Function Factors Limiting Gait Function Decreased Sensation,Decreased Strength,Limited Range of Motion,Poor Balance Comments Gait Comments Demonstrates B hip ER, decreased foot clearance. Does not fully extend knees with gait and shuffles feet. Has increased trunk sway, less foot clearance and shorter stance time on LLE. Holds walker in front of body vs closer to trunk Using 3 wheeled walker PT-OP-H Neuro Start: 03/08/24 07:29 Freq: Status: Active Protocol: Document 03/08/24 09:02 NM (Rec: 03/08/24 09:49 NM [id number]) Coordination Evaluation Upper Extremity Tests Left Pronation/Supination Test Normal Performance Right Pronation/Supination Test Normal Performance Lower Extremity Tests Left Heel on Augustin Test Normal Performance Foot Tapping Test Normal Performance Right Heel on Augustin Test Normal Performance Foot Tapping Test Normal Performance Vital Signs Comments Vital Signs Comments seated R arm, restin/72 mmHg, 90 spO2, 61 bpm PT-OP-J Posture/Palpation/Skin Start: 03/08/24 07:29 Freq: Status: Active Protocol: Document 03/08/24 09:02 NM (Rec: 03/08/24 09:49 NM [id number]) Posture Evaluation Position Standing Head/C-Spine Posture Forward Head T-Spine Posture Increased Kyphosis L-Spine Posture Increased Lordosis Pelvis Posture Anteriorly Tilted Hip Posture (L) Externally Rotated,(R) Externally Rotated Knee Posture (L) Genu Valgus,(R) Genu Valgus,(L) Excess Flexion,(R) Excess Flexion Ankle/Foot Posture (L) Supinated,(R) Supinated Comments Posture Comments Demos forward PAULO, in standing pt has L trunk lean. Kyphotic PT-OP-K Range of Motion Start: 03/08/24 07:29 Freq: Status: Active Protocol: Document 03/08/24 09:02 NM (Rec: 03/08/24 10:20 NM [id number]) Hip Goniometric Range of Motion Hip ROM Limitations Comments Limited hip flexion ROM bilaterally, did not formally measure Knee Goniometric Range of Motion Knee ROM Limitations Comments Limited hamstring ROM bilaterally, did not formally measure Ankle and Foot Goniometric Range of Motion Ankle and Foot ROM Limitations Comments Limited ankle dorsiflexion ROM bilaterally, did not formally measure PT-OP-M Strength Start: 03/08/24 07:29 Freq: Status: Active Protocol: Document 04/29/24 14:35 NM (Rec: 04/29/24 15:36 NM [id number]) Hip Strength Hip Manual Muscle Testing Right Flexion (L2) 4- Good- Extension (S1) 4 Good Abduction 4 Good Adduction 4 Good External Rotation 4- Good- Internal Rotation 4- Good- Comments IE: 4-/5 for all Left Flexion (L2) 4- Good- Extension (S1) 4- Good- Abduction 4- Good- Adduction 4- Good- External Rotation 4- Good- Internal Rotation 4- Good- Comments IE: 3+/5 Knee Strength Knee Manual Muscle Testing Right Flexion (S2) 4- Good- Extension (L3) 4- Good- Left Flexion (S2) 4- Good- Extension (L3) 4- Good- PT-OP-Q Treatments Start: 03/08/24 07:29 Freq: Status: Active Protocol: Document 05/10/24 14:33 TS (Rec: 05/10/24 16:44 TS [id number]) Gym Equipment Shuttle Recovery unilateral squat Details cued not lock extension Resistance 25# (navy) Reps/Time 2x10 bilateral squat Resistance 63# (33 navy) Shuttle Recovery Platform Stable Reps/Time 2x10 Therapeutic Exercises Standing Exercises pallof Standing Exercise Name press Side bilateral Resistance level 1 band (1) Reps/Minutes 10 Comments Max cueing for setup lat pull down Standing Exercise Name straight arm Side bilateral Resistance level 2 band Reps/Minutes 2x10 Neuro Re-Education Treatment Balance Activities marching on blue cushion Details hands above bars CGA Reps/Duration X15 steps Comments FWD Steps, Marches. Pt fatigues quickly tandem stepping Reps/Duration 10 feet X 2 Comments CGA, verbal cues for hands above bars, but increased use of bars PT-OP-T Assessment and Plan Start: 03/08/24 07:29 Freq: Status: Active Protocol: Document 05/10/24 14:33 TS (Rec: 05/10/24 16:44 TS [id number]) Physical Therapy Assessment Goals Five Impairment transfers Impairment 5 x STS 17 seconds Short Term Goal (STG) Pt will be able to perform at least 10 sit to stands without compensation and without UE assist in order to demonstrate improved BLE strength, initial balance, and safety with transfers 7/2: 10 STS with no UE support . STG Duration 6 weeks 7/2 Goal Met Logistics Planning Engineer Goal (LTG) Pt will be able to perform 5x STS in at least 15 seconds or less without compensation or UE assist in order to meet age -related norms, improve BLE strength, initial balance, and safety with transfers LTG Duration 12 weeks Four Impairment ambulation distance Impairment 2 MWT 206 ft with 3 wheeled walker Short Term Goal (STG) Pt will be able to ambulate at least 40 feet further (MDC) on 2 MWT using LRAD in order to demonstrate improved BLE strength, endurance, and activity tolerance. 03/22 149'. Decreased in distance most likely due to pacing. STG Duration 6 weeks Detention Goal (LTG) Pt will be able to complete 6 MWT using LRAD in order to demonstrate improved BLE strength, endurance, and activity tolerance. LTG Duration 12 weeks Three Impairment fear of falling Logistics Planning Engineer Goal (LTG) Pt will improve ABC score to > 60% in order to demonstrate improved confidence related to not falling during ADLs/IADLs and during gait LTG Duration 12 weeks Two Impairment balance, static, fall risk Impairment Angeles 19/56 Short Term Goal (STG) Pt will increase Angeles balance score > 30/56 in order to demonstate improved balance during transfers and gait for improved safety and to decrease fall risk with AD use 04/29/24: 33/56 STG Duration 6 weeks MET Logistics Planning Engineer Goal (LTG) Pt will increase Angeles balance score > 38/56 in order to demonstate improved balance during transfers and gait for improved safety and to decrease fall risk with AD use LTG Duration 12 weeks One Impairment balance, gait Impairment TUG 22.3 seconds with 3WW Short Term Goal (STG) Pt will decrease TUG time to less than 18 seconds with LRAD in order to demonstrate improved gait speed and decreased fall risk during household ambulation 04/29/24: 3 reps (32 sec, 19 sec , 19 sec)- average 23 sec w/ 3WW STG Duration 6 weeks NOT MET Detention Goal (LTG) Pt will decrease TUG time to less than 12 seconds with LRAD in order to demonstrate improved gait speed and decreased fall risk during community ambulation LTG Duration 12 weeks Assessment Summary Assessment Pt fatigues quickly with pallof ex and reports her heart beating fast and SOB, HR low 60's and Spo2 99%. She requires breaks inbetween ex. She continues to be challenged by balance ex. She requires hand suppport for marching on cushion and for tandem walking . Pt would continue to benefit from PT to improve activity tolerance and strength. Physical Therapy Plan Next Visit Focus/Plan Next Note Type Treatment Note Next Visit Plan leg press, step up, hurdles, foam Head movements, obstacle course Global hip strengthening: hip ext with band, march with band or ankle weights, lat, pallof , monster walk in //bars, transfer training with FWW and cane for safety POC: balance, gait with LRAD on stable and unstable surfaces, resisted ambulation
--- NOTE | 2024-05-13 15:22 | PT.OTN ---
Current Diagnoses Other abnormalities of gait and mobility (05/10/24) Other lack of coordination (05/10/24) Other symptoms and signs involving the musculoskeletal system (05/10/24) Weakness (05/10/24) Physical Therapy Treatment Note PT-OP-A Visit Information Start: 03/08/24 07:29 Freq: Status: Active Protocol: Document 05/13/24 14:34 NM (Rec: 05/13/24 15:22 NM [id number]) Out-Patient Physical Therapy Visit Information Visit Information Visit Type Treatment Note Visit Note KX after 19 visits Visit Start Time 14:35 Visit Stop Time 15:15 Visit Number 13 Evaluation Information Evaluation Date 03/08/24 Precautions Precautions fall risk, monitor vitals PT-OP-B Current Condition Start: 03/08/24 07:29 Freq: Status: Active Protocol: Document 03/08/24 09:02 NM (Rec: 03/08/24 09:49 NM [id number]) Current Condition History of Current Condition Current Complaints weakness, decreased mobility, balance History of Current Condition Pt presents to PT with balance and gait abnormalities. She is using a trifold 3WW but has also has 4WW that folds. She live with her , who assists to care for her. She reports difficulty with ambulation. She has had previous PT several years ago for same condition. Pt reports that after last PT, she was able to walk without falling. Uses walker for ambulation in house, otherwise has to reach for things to stabilize. She has had 1 fall a few weeks ago , when ambulating with her walker when she lost her balance and fell on her side. Pt also has a 3 prong cane occasionally to walk. She reports that she has a fear of falling. Pt reports that she has had a stroke, that affected her L side; states that she can use her leg just as well as when she could before. Thinks that she has had the stroke 6 months ago. Pt reports no numbess in her legs. 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 Denies hx of osteoporosis, dizziness, vertigo, no fractures. She is blood pressure medication. Prior Treatments and Tests previous PT for same condition Treatment Goals Patient/Caregiver Goals walk without an AD Current Functional Impairments (Reported) Functional Limitations- ADL's dressing sitting down IND Functional Limitations- Mobility/Gait uses AD to ambulate stairs leading up to house (R rails) and in the home (b rails) PT-OP-C Subjective Start: 03/08/24 07:29 Freq: Status: Active Protocol: Document 05/13/24 14:34 NM (Rec: 05/13/24 15:22 NM [id number]) OP-PT Subjective Patient Comments Patient Comments Pt reports doing well, states HEP is medium almost easy. PT-OP-D Balance Start: 03/08/24 07:29 Freq: Status: Active Protocol: Document 03/08/24 09:02 NM (Rec: 03/08/24 09:49 NM [id number]) Balance Tests Angeles Balance Test Angeles Balance Test Score 19/56 PT-OP-E Functional Tests Start: 03/08/24 07:29 Freq: Status: Active Protocol: Document 03/08/24 09:02 NM (Rec: 03/08/24 09:49 NM [id number]) Functional Tests 2 Minute Walk Test Distance 206 ft Device Used 3WW 30 Second Sit to Stand Test Score 9 STS Comments uses HS to stabilize; no hands ; 18 chair Five Times Sit to Stand Test Score 17 seconds Comments uses HS to stabilize; 18 chair Timed Up and Go (TUG) Score 22.3 sec Comments 3WW PT-OP-F Manual Assessment Start: 03/08/24 07:29 Freq: Status: Active Protocol: Document 03/08/24 09:02 NM (Rec: 03/08/24 09:49 NM [id number]) Manual Assessments Soft Tissue Assessment Soft Tissue Mobility Assessment Decreased HS and heel cord length bilaterally Joint Mobility Assessment Joint Mobility Assessment Decreased ankle mobility, hip mobility PT-OP-G Mobility & Gait Start: 03/08/24 07:29 Freq: Status: Active Protocol: Document 03/08/24 09:02 NM (Rec: 03/08/24 10:58 NM [id number]) OP Gait Assessment Gait Gait Assistance Required: Standby Assistance Distance (Feet) 206 Assistive Devices Assistive Device Gait Belt,4 Wheeled Walker Gait Deviations General Gait Pattern Decreased Stride Length, Decreased Feet Clearance, Flexed Trunk Factors Limiting Gait Function Factors Limiting Gait Function Decreased Sensation,Decreased Strength,Limited Range of Motion,Poor Balance Comments Gait Comments Demonstrates B hip ER, decreased foot clearance. Does not fully extend knees with gait and shuffles feet. Has increased trunk sway, less foot clearance and shorter stance time on LLE. Holds walker in front of body vs closer to trunk Using 3 wheeled walker PT-OP-H Neuro Start: 03/08/24 07:29 Freq: Status: Active Protocol: Document 03/08/24 09:02 NM (Rec: 03/08/24 09:49 NM [id number]) Coordination Evaluation Upper Extremity Tests Left Pronation/Supination Test Normal Performance Right Pronation/Supination Test Normal Performance Lower Extremity Tests Left Heel on Augustin Test Normal Performance Foot Tapping Test Normal Performance Right Heel on [place]in Test Normal Performance Foot Tapping Test Normal Performance Vital Signs Comments Vital Signs Comments seated R arm, restin/72 mmHg, 90 spO2, 61 bpm PT-OP-J Posture/Palpation/Skin Start: 03/08/24 07:29 Freq: Status: Active Protocol: Document 03/08/24 09:02 NM (Rec: 03/08/24 09:49 NM [id number]) Posture Evaluation Position Standing Head/C-Spine Posture Forward Head T-Spine Posture Increased Kyphosis L-Spine Posture Increased Lordosis Pelvis Posture Anteriorly Tilted Hip Posture (L) Externally Rotated,(R) Externally Rotated Knee Posture (L) Genu Valgus,(R) Genu Valgus,(L) Excess Flexion,(R) Excess Flexion Ankle/Foot Posture (L) Supinated,(R) Supinated Comments Posture Comments Demos forward PAULO, in standing pt has L trunk lean. Kyphotic PT-OP-K Range of Motion Start: 03/08/24 07:29 Freq: Status: Active Protocol: Document 03/08/24 09:02 NM (Rec: 03/08/24 10:20 NM [id number]) Hip Goniometric Range of Motion Hip ROM Limitations Comments Limited hip flexion ROM bilaterally, did not formally measure Knee Goniometric Range of Motion Knee ROM Limitations Comments Limited hamstring ROM bilaterally, did not formally measure Ankle and Foot Goniometric Range of Motion Ankle and Foot ROM Limitations Comments Limited ankle dorsiflexion ROM bilaterally, did not formally measure PT-OP-M Strength Start: 03/08/24 07:29 Freq: Status: Active Protocol: Document 04/29/24 14:35 NM (Rec: 04/29/24 15:36 NM [id number]) Hip Strength Hip Manual Muscle Testing Right Flexion (L2) 4- Good- Extension (S1) 4 Good Abduction 4 Good Adduction 4 Good External Rotation 4- Good- Internal Rotation 4- Good- Comments IE: 4-/5 for all Left Flexion (L2) 4- Good- Extension (S1) 4- Good- Abduction 4- Good- Adduction 4- Good- External Rotation 4- Good- Internal Rotation 4- Good- Comments IE: 3+/5 Knee Strength Knee Manual Muscle Testing Right Flexion (S2) 4- Good- Extension (L3) 4- Good- Left Flexion (S2) 4- Good- Extension (L3) 4- Good- PT-OP-Q Treatments Start: 03/08/24 07:29 Freq: Status: Active Protocol: Document 05/13/24 14:34 NM (Rec: 05/13/24 15:22 NM [id number]) Therapeutic Exercises Standing Exercises step up Side bilateral Resistance 2# ankle weight Equipment Used 1 flat hand Reps/Minutes 15 ea Comments challenging Toe raises Side bilateral Resistance 2# ankle weight Equipment Used B hand support for balance Reps/Minutes 2x10 Comments cued max ROM Standing March Side bilateral Resistance level 1 band at toes Equipment Used CGA to steady, 1 hand support Reps/Minutes 15 ea Neuro Re-Education Treatment Balance Activities hurdles Details CGA-min A Reps/Duration 6 hurdles Comments 1. fwd 2 feet between, ea foot leading x 2 sets 1 finger for support. Cued heel strike, knee flexion, nose centered over navel 2. reciprocal x2 sets 1 flat hand 3. lateral x 2 sets 1 flat hand; cued control with lowering, more challenging in L stance unstable surface Surface unstable-black theraband rubber pad Equipment 2 finger support for balance Comments 1. stance w/ head turns and dual tasking 2. WS Demos strong posterior lean. Min-Mod A to correct and prevent LOB 3. step ups x 5 ea leg, min A to steady stepping Details CGA to steady Surface stable Reps/Duration 3 ea direction Comments Fwd stepping to squat and pick up attendant cones, then place on small objects, then return PT-OP-T Assessment and Plan Start: 03/08/24 07:29 Freq: Status: Active Protocol: Document 05/13/24 14:34 NM (Rec: 05/13/24 15:22 NM [id number]) Physical Therapy Assessment Goals Five Impairment transfers Impairment 5 x STS 17 seconds Short Term Goal (STG) Pt will be able to perform at least 10 sit to stands without compensation and without UE assist in order to demonstrate improved BLE strength, initial balance, and safety with transfers 03/22: 10 STS with no UE support . STG Duration 6 weeks 7 Goal Met Senior Living Goal (LTG) Pt will be able to perform 5x STS in at least 15 seconds or less without compensation or UE assist in order to meet age -related norms, improve BLE strength, initial balance, and safety with transfers LTG Duration 12 weeks Four Impairment ambulation distance Impairment 2 MWT 206 ft with 3 wheeled walker Short Term Goal (STG) Pt will be able to ambulate at least 40 feet further (MDC) on 2 MWT using LRAD in order to demonstrate improved BLE strength, endurance, and activity tolerance. 03/22 149'. Decreased in distance most likely due to pacing. STG Duration 6 weeks Senior Living Goal (LTG) Pt will be able to complete 6 MWT using LRAD in order to demonstrate improved BLE strength, endurance, and activity tolerance. LTG Duration 12 weeks Three Impairment fear of falling Senior Living Goal (LTG) Pt will improve ABC score to > 60% in order to demonstrate improved confidence related to not falling during ADLs/IADLs and during gait LTG Duration 12 weeks Two Impairment balance, static, fall risk Impairment Angeles 19/56 Short Term Goal (STG) Pt will increase Angeles balance score > 30/56 in order to demonstate improved balance during transfers and gait for improved safety and to decrease fall risk with AD use 04/29/24: 33/56 STG Duration 6 weeks MET Senior Living Goal (LTG) Pt will increase Angeles balance score > 38/56 in order to demonstate improved balance during transfers and gait for improved safety and to decrease fall risk with AD use LTG Duration 12 weeks One Impairment balance, gait Impairment TUG 22.3 seconds with 3WW Short Term Goal (STG) Pt will decrease TUG time to less than 18 seconds with LRAD in order to demonstrate improved gait speed and decreased fall risk during household ambulation 04/29/24: 3 reps (32 sec, 19 sec , 19 sec)- average 23 sec w/ 3WW STG Duration 6 weeks NOT MET Senior Living Goal (LTG) Pt will decrease TUG time to less than 12 seconds with LRAD in order to demonstrate improved gait speed and decreased fall risk during community ambulation LTG Duration 12 weeks Assessment Summary Assessment Pt tolerated session well. Demonstrates improvements in ROM during heel raises and standing resisted march. Pt able to progress to 2# ankle weight during heel raises but fatigues quickly. Requires several seated rest breaks after 3 standing activities. Pt demonstrates strong posterior lean during balance activities on unstable surfaces and has difficulty with facilitating an anterior weight shift. Pt able to pick up attendant objects from floor repeatedly with CGA to steady without hand support, an improvement since initial evaluation. Pt still challenged with maintaining control of LLE during stepping , gait, and step ups. Pt would benefit from skilled PT for progressive BLE strengthening, gait, and balance training in order to reduce fall risk and improve activity tolerance. Physical Therapy Plan Frequency and Duration Frequency of Treatment 2x/Week Duration of treatment (weeks) 12 Plan of Care Start Date 03/08/24 Plan of Care End Date 06/03/24 Therapeutic Interventions Therapeutic Interventions Balance Training,Gait Training ,Home Exercise Program,Joint Mobilizations,Manual Therapy, Neuromuscular Re-education, Orthotic/Prosthetic Management ,Patient/Caregiver Education, Self-Care/Home Management,Soft Tissue Mobilization,Taping, Therapeutic Activities, Therapeutic Exercises Modalities Cold Pack/Ice Massage,Hot Packs Next Visit Focus/Plan Next Note Type Treatment Note Next Visit Plan ankle DF w/ hurdles, band; cont w/ step up, leg press ( uni squat), hurdles, foam w/ less visual input Global hip strengthening: hip ext with band, march with band or ankle weights, lat, pallof , monster walk in //bars, transfer training with FWW and cane for safety POC: balance, gait with LRAD on stable and unstable surfaces, resisted ambulation
--- NOTE | 2024-05-17 15:20 | PT.OTN ---
Current Diagnoses Other abnormalities of gait and mobility (05/17/24) Other lack of coordination (05/17/24) Other symptoms and signs involving the musculoskeletal system (05/17/24) Weakness (05/17/24) Physical Therapy Treatment Note PT-OP-A Visit Information Start: 03/08/24 07:29 Freq: Status: Active Protocol: Document 05/17/24 15:19 TS (Rec: 05/17/24 16:22 TS [id number]) Out-Patient Physical Therapy Visit Information Visit Information Visit Type Treatment Note Visit Note KX after 19 visits Visit Start Time 15:20 Visit Stop Time 16:00 Visit Number 14 Number of ELEMENTARY SUPERVISOR Visits 1 PT-OP-B Current Condition Start: 03/08/24 07:29 Freq: Status: Active Protocol: Document 03/08/24 09:02 NM (Rec: 03/08/24 09:49 NM [id number]) Current Condition History of Current Condition Current Complaints weakness, decreased mobility, balance History of Current Condition Pt presents to PT with balance and gait abnormalities. She is using a trifold 3WW but has also has 4WW that folds. She live with her , who assists to care for her. She reports difficulty with ambulation. She has had previous PT several years ago for same condition. Pt reports that after last PT, she was able to walk without falling. Uses walker for ambulation in house, otherwise has to reach for things to stabilize. She has had 1 fall a few weeks ago , when ambulating with her walker when she lost her balance and fell on her side. Pt also has a 3 prong cane occasionally to walk. She reports that she has a fear of falling. Pt reports that she has had a stroke, that affected her L side; states that she can use her leg just as well as when she could before. Thinks that she has had the stroke 6 months ago. Pt reports no numbess in her legs. 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 Denies hx of osteoporosis, dizziness, vertigo, no fractures. She is blood pressure medication. Prior Treatments and Tests previous PT for same condition Treatment Goals Patient/Caregiver Goals walk without an AD Current Functional Impairments (Reported) Functional Limitations- ADL's dressing sitting down IND Functional Limitations- Mobility/Gait uses AD to ambulate stairs leading up to house (R rails) and in the home (b rails) PT-OP-C Subjective Start: 03/08/24 07:29 Freq: Status: Active Protocol: Document 05/17/24 15:19 TS (Rec: 05/17/24 16:22 TS [id number]) OP-PT Subjective Patient Comments Patient Comments Pt reports she is feeling good . She feels she is getting stronger overall, continues to have a fear of falling. PT-OP-D Balance Start: 03/08/24 07:29 Freq: Status: Active Protocol: Document 03/08/24 09:02 NM (Rec: 03/08/24 09:49 NM [id number]) Balance Tests Angeles Balance Test Angeles Balance Test Score 1956 PT-OP-E Functional Tests Start: 03/08/24 07:29 Freq: Status: Active Protocol: Document 03/08/24 09:02 NM (Rec: 03/08/24 09:49 NM [id number]) Functional Tests 2 Minute Walk Test Distance 206 ft Device Used 3WW 30 Second Sit to Stand Test Score 9 STS Comments uses HS to stabilize; no hands ; 18 chair Five Times Sit to Stand Test Score 17 seconds Comments uses HS to stabilize; 18 chair Timed Up and Go (TUG) Score 22.3 sec Comments 3WW PT-OP-F Manual Assessment Start: 03/08/24 07:29 Freq: Status: Active Protocol: Document 03/08/24 09:02 NM (Rec: 03/08/24 09:49 NM [id number]) Manual Assessments Soft Tissue Assessment Soft Tissue Mobility Assessment Decreased HS and heel cord length bilaterally Joint Mobility Assessment Joint Mobility Assessment Decreased ankle mobility, hip mobility PT-OP-G Mobility & Gait Start: 03/08/24 07:29 Freq: Status: Active Protocol: Document 03/08/24 09:02 NM (Rec: 03/08/24 10:58 NM [id number]) OP Gait Assessment Gait Gait Assistance Required: Standby Assistance Distance (Feet) 206 Assistive Devices Assistive Device Gait Belt,4 Wheeled Walker Gait Deviations General Gait Pattern Decreased Stride Length, Decreased Feet Clearance, Flexed Trunk Factors Limiting Gait Function Factors Limiting Gait Function Decreased Sensation,Decreased Strength,Limited Range of Motion,Poor Balance Comments Gait Comments Demonstrates B hip ER, decreased foot clearance. Does not fully extend knees with gait and shuffles feet. Has increased trunk sway, less foot clearance and shorter stance time on LLE. Holds walker in front of body vs closer to trunk Using 3 wheeled walker PT-OP-H Neuro Start: 03/08/24 07:29 Freq: Status: Active Protocol: Document 03/08/24 09:02 NM (Rec: 03/08/24 09:49 NM [id number]) Coordination Evaluation Upper Extremity Tests Left Pronation/Supination Test Normal Performance Right Pronation/Supination Test Normal Performance Lower Extremity Tests Left Heel on Augustin Test Normal Performance Foot Tapping Test Normal Performance Right Heel on [place]in Test Normal Performance Foot Tapping Test Normal Performance Vital Signs Comments Vital Signs Comments seated R arm, restin/72 mmHg, 90 spO2, 61 bpm PT-OP-J Posture/Palpation/Skin Start: 03/08/24 07:29 Freq: Status: Active Protocol: Document 03/08/24 09:02 NM (Rec: 03/08/24 09:49 NM [id number]) Posture Evaluation Position Standing Head/C-Spine Posture Forward Head T-Spine Posture Increased Kyphosis L-Spine Posture Increased Lordosis Pelvis Posture Anteriorly Tilted Hip Posture (L) Externally Rotated,(R) Externally Rotated Knee Posture (L) Genu Valgus,(R) Genu Valgus,(L) Excess Flexion,(R) Excess Flexion Ankle/Foot Posture (L) Supinated,(R) Supinated Comments Posture Comments Demos forward PAULO, in standing pt has L trunk lean. Kyphotic PT-OP-K Range of Motion Start: 03/08/24 07:29 Freq: Status: Active Protocol: Document 03/08/24 09:02 NM (Rec: 03/08/24 10:20 NM [id number]) Hip Goniometric Range of Motion Hip ROM Limitations Comments Limited hip flexion ROM bilaterally, did not formally measure Knee Goniometric Range of Motion Knee ROM Limitations Comments Limited hamstring ROM bilaterally, did not formally measure Ankle and Foot Goniometric Range of Motion Ankle and Foot ROM Limitations Comments Limited ankle dorsiflexion ROM bilaterally, did not formally measure PT-OP-M Strength Start: 03/08/24 07:29 Freq: Status: Active Protocol: Document 04/29/24 14:35 NM (Rec: 04/29/24 15:36 NM [id number]) Hip Strength Hip Manual Muscle Testing Right Flexion (L2) 4- Good- Extension (S1) 4 Good Abduction 4 Good Adduction 4 Good External Rotation 4- Good- Internal Rotation 4- Good- Comments IE: 4-/5 for all Left Flexion (L2) 4- Good- Extension (S1) 4- Good- Abduction 4- Good- Adduction 4- Good- External Rotation 4- Good- Internal Rotation 4- Good- Comments IE: 3+/5 Knee Strength Knee Manual Muscle Testing Right Flexion (S2) 4- Good- Extension (L3) 4- Good- Left Flexion (S2) 4- Good- Extension (L3) 4- Good- PT-OP-Q Treatments Start: 03/08/24 07:29 Freq: Status: Active Protocol: Document 05/17/24 15:19 TS (Rec: 05/17/24 16:22 TS [id number]) Therapeutic Exercises Sitting Exercises STS Side bilateral Resistance level 2 band at thighs to prevent valgus Equipment Used standard chair Reps/Minutes 2x10 Comments arms in front for fwd wt shift , no hand use; requires increased time Standing Exercises step up Side bilateral Resistance 2# ankle weight Equipment Used 6 step Reps/Minutes 15 ea Comments Cues for feet all the way on step Toe raises Side bilateral Resistance 2# ankle weight Equipment Used B hand support for balance Reps/Minutes 2x10 Comments cued max ROM Standing March Side bilateral Resistance level 1 band at toes Equipment Used CGA to steady, 1 hand support Reps/Minutes 15 ea Neuro Re-Education Treatment Balance Activities Tilt Board Reps/Duration x1' Comments FWD/BWD, Side to side, hands above // bars hurdles Details CGA-min A Reps/Duration 6 hurdles Comments 2# ankle weights, cues for larger steps Foam Details CGA, hands hovering above bars , blue foam Comments WBOS, HT's, NBOS. NBOS challenging for pt, cued for glute act and upright posture. tandem stepping Reps/Duration 10 feet X 2 Comments CGA, hands on bars PT-OP-T Assessment and Plan Start: 03/08/24 07:29 Freq: Status: Active Protocol: Document 05/17/24 15:19 TS (Rec: 05/17/24 16:22 TS [id number]) Physical Therapy Assessment Goals Five Impairment transfers Impairment 5 x STS 17 seconds Short Term Goal (STG) Pt will be able to perform at least 10 sit to stands without compensation and without UE assist in order to demonstrate improved BLE strength, initial balance, and safety with transfers 7/2: 10 STS with no UE support . STG Duration 6 weeks 03/22 Goal Met Roll Tester Goal (LTG) Pt will be able to perform 5x STS in at least 15 seconds or less without compensation or UE assist in order to meet age -related norms, improve BLE strength, initial balance, and safety with transfers LTG Duration 12 weeks Four Impairment ambulation distance Impairment 2 MWT 206 ft with 3 wheeled walker Short Term Goal (STG) Pt will be able to ambulate at least 40 feet further (MDC) on 2 MWT using LRAD in order to demonstrate improved BLE strength, endurance, and activity tolerance. 03/22 149'. Decreased in distance most likely due to pacing. STG Duration 6 weeks Roll Tester Goal (LTG) Pt will be able to complete 6 MWT using LRAD in order to demonstrate improved BLE strength, endurance, and activity tolerance. LTG Duration 12 weeks Three Impairment fear of falling Jail Goal (LTG) Pt will improve ABC score to > 60% in order to demonstrate improved confidence related to not falling during ADLs/IADLs and during gait LTG Duration 12 weeks Two Impairment balance, static, fall risk Impairment [place] 19/56 Short Term Goal (STG) Pt will increase [place] balance score > 30/56 in order to demonstate improved balance during transfers and gait for improved safety and to decrease fall risk with AD use 04/29/24: 33/56 STG Duration 6 weeks MET Jail Goal (LTG) Pt will increase [place] balance score > 38/56 in order to demonstate improved balance during transfers and gait for improved safety and to decrease fall risk with AD use LTG Duration 12 weeks One Impairment balance, gait Impairment TUG 22.3 seconds with 3WW Short Term Goal (STG) Pt will decrease TUG time to less than 18 seconds with LRAD in order to demonstrate improved gait speed and decreased fall risk during household ambulation 04/29/24: 3 reps (32 sec, 19 sec , 19 sec)- average 23 sec w/ 3WW STG Duration 6 weeks NOT MET Roll Tester Goal (LTG) Pt will decrease TUG time to less than 12 seconds with LRAD in order to demonstrate improved gait speed and decreased fall risk during community ambulation LTG Duration 12 weeks Assessment Summary Assessment Pt continues to be challenged with balance and requires FRONT ELEVATOR OPERATOR on bars for most balance activities. She fatigues quickly with balance on foam. She demonstrates good carryover of STS sequencing, she requires cues for increased hip hinge. Pt would benefit from skilled PT for progressive BLE strengthening, gait, and balance training in order to reduce fall risk and improve activity tolerance. Physical Therapy Plan Next Visit Focus/Plan Next Note Type Treatment Note Next Visit Plan ankle DF w/ hurdles, band; cont w/ step up, leg press ( uni squat), hurdles, foam w/ less visual input Global hip strengthening: hip ext with band, march with band or ankle weights, lat, pallof , monster walk in //bars, transfer training with FWW and cane for safety POC: balance, gait with LRAD on stable and unstable surfaces, resisted ambulation
--- NOTE | 2024-05-20 15:26 | PT.OTN ---
Current Diagnoses Other abnormalities of gait and mobility (05/20/24) Other lack of coordination (05/20/24) Other symptoms and signs involving the musculoskeletal system (05/20/24) Weakness (05/20/24) Physical Therapy Treatment Note PT-OP-A Visit Information Start: 03/08/24 07:29 Freq: Status: Active Protocol: Document 05/20/24 14:30 TS (Rec: 05/20/24 15:25 TS [id number]) Out-Patient Physical Therapy Visit Information Visit Information Visit Type Treatment Note Visit Note KX after 19 visits Visit Start Time 14:30 Visit Stop Time 15:10 Visit Number 15 Number of SECURITY GUARDS DISPATCHER Visits 2 PT-OP-B Current Condition Start: 03/08/24 07:29 Freq: Status: Active Protocol: Document 03/08/24 09:02 NM (Rec: 03/08/24 09:49 NM [id number]) Current Condition History of Current Condition Current Complaints weakness, decreased mobility, balance History of Current Condition Pt presents to PT with balance and gait abnormalities. She is using a trifold 3WW but has also has 4WW that folds. She live with her , who assists to care for her. She reports difficulty with ambulation. She has had previous PT several years ago for same condition. Pt reports that after last PT, she was able to walk without falling. Uses walker for ambulation in house, otherwise has to reach for things to stabilize. She has had 1 fall a few weeks ago , when ambulating with her walker when she lost her balance and fell on her side. Pt also has a 3 prong cane occasionally to walk. She reports that she has a fear of falling. Pt reports that she has had a stroke, that affected her L side; states that she can use her leg just as well as when she could before. Thinks that she has had the stroke 6 months ago. Pt reports no numbess in her legs. 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 Denies hx of osteoporosis, dizziness, vertigo, no fractures. She is blood pressure medication. Prior Treatments and Tests previous PT for same condition Treatment Goals Patient/Caregiver Goals walk without an AD Current Functional Impairments (Reported) Functional Limitations- ADL's dressing sitting down IND Functional Limitations- Mobility/Gait uses AD to ambulate stairs leading up to house (R rails) and in the home (b rails) PT-OP-C Subjective Start: 03/08/24 07:29 Freq: Status: Active Protocol: Document 05/20/24 14:30 TS (Rec: 05/20/24 15:25 TS [id number]) OP-PT Subjective Patient Comments Patient Comments Pt reports she would like to start taking walks with her at [facility]. She continues to do her HEP. PT-OP-D Balance Start: 03/08/24 07:29 Freq: Status: Active Protocol: Document 03/08/24 09:02 NM (Rec: 03/08/24 09:49 NM [id number]) Balance Tests Angeles Balance Test Angeles Balance Test Score 19/56 PT-OP-E Functional Tests Start: 03/08/24 07:29 Freq: Status: Active Protocol: Document 03/08/24 09:02 NM (Rec: 03/08/24 09:49 NM [id number]) Functional Tests 2 Minute Walk Test Distance 206 ft Device Used 3WW 30 Second Sit to Stand Test Score 9 STS Comments uses HS to stabilize; no hands ; 18 chair Five Times Sit to Stand Test Score 17 seconds Comments uses HS to stabilize; 18 chair Timed Up and Go (TUG) Score 22.3 sec Comments 3WW PT-OP-F Manual Assessment Start: 03/08/24 07:29 Freq: Status: Active Protocol: Document 03/08/24 09:02 NM (Rec: 03/08/24 09:49 NM [id number]) Manual Assessments Soft Tissue Assessment Soft Tissue Mobility Assessment Decreased HS and heel cord length bilaterally Joint Mobility Assessment Joint Mobility Assessment Decreased ankle mobility, hip mobility PT-OP-G Mobility & Gait Start: 03/08/24 07:29 Freq: Status: Active Protocol: Document 03/08/24 09:02 NM (Rec: 03/08/24 10:58 NM [id number]) OP Gait Assessment Gait Gait Assistance Required: Standby Assistance Distance (Feet) 206 Assistive Devices Assistive Device Gait Belt,4 Wheeled Walker Gait Deviations General Gait Pattern Decreased Stride Length, Decreased Feet Clearance, Flexed Trunk Factors Limiting Gait Function Factors Limiting Gait Function Decreased Sensation,Decreased Strength,Limited Range of Motion,Poor Balance Comments Gait Comments Demonstrates B hip ER, decreased foot clearance. Does not fully extend knees with gait and shuffles feet. Has increased trunk sway, less foot clearance and shorter stance time on LLE. Holds walker in front of body vs closer to trunk Using 3 wheeled walker PT-OP-H Neuro Start: 03/08/24 07:29 Freq: Status: Active Protocol: Document 03/08/24 09:02 NM (Rec: 03/08/24 09:49 NM [id number]) Coordination Evaluation Upper Extremity Tests Left Pronation/Supination Test Normal Performance Right Pronation/Supination Test Normal Performance Lower Extremity Tests Left Heel on Augustin Test Normal Performance Foot Tapping Test Normal Performance Right Heel on Augustin Test Normal Performance Foot Tapping Test Normal Performance Vital Signs Comments Vital Signs Comments seated R arm, restin/72 mmHg, 90 spO2, 61 bpm PT-OP-J Posture/Palpation/Skin Start: 03/08/24 07:29 Freq: Status: Active Protocol: Document 03/08/24 09:02 NM (Rec: 03/08/24 09:49 NM [id number]) Posture Evaluation Position Standing Head/C-Spine Posture Forward Head T-Spine Posture Increased Kyphosis L-Spine Posture Increased Lordosis Pelvis Posture Anteriorly Tilted Hip Posture (L) Externally Rotated,(R) Externally Rotated Knee Posture (L) Genu Valgus,(R) Genu Valgus,(L) Excess Flexion,(R) Excess Flexion Ankle/Foot Posture (L) Supinated,(R) Supinated Comments Posture Comments Demos forward PAULO, in standing pt has L trunk lean. Kyphotic PT-OP-K Range of Motion Start: 03/08/24 07:29 Freq: Status: Active Protocol: Document 03/08/24 09:02 NM (Rec: 03/08/24 10:20 NM [id number]) Hip Goniometric Range of Motion Hip ROM Limitations Comments Limited hip flexion ROM bilaterally, did not formally measure Knee Goniometric Range of Motion Knee ROM Limitations Comments Limited hamstring ROM bilaterally, did not formally measure Ankle and Foot Goniometric Range of Motion Ankle and Foot ROM Limitations Comments Limited ankle dorsiflexion ROM bilaterally, did not formally measure PT-OP-M Strength Start: 03/08/24 07:29 Freq: Status: Active Protocol: Document 04/29/24 14:35 NM (Rec: 04/29/24 15:36 NM [id number]) Hip Strength Hip Manual Muscle Testing Right Flexion (L2) 4- Good- Extension (S1) 4 Good Abduction 4 Good Adduction 4 Good External Rotation 4- Good- Internal Rotation 4- Good- Comments IE: 4-/5 for all Left Flexion (L2) 4- Good- Extension (S1) 4- Good- Abduction 4- Good- Adduction 4- Good- External Rotation 4- Good- Internal Rotation 4- Good- Comments IE: 3+/5 Knee Strength Knee Manual Muscle Testing Right Flexion (S2) 4- Good- Extension (L3) 4- Good- Left Flexion (S2) 4- Good- Extension (L3) 4- Good- PT-OP-Q Treatments Start: 03/08/24 07:29 Freq: Status: Active Protocol: Document 05/20/24 14:30 TS (Rec: 05/20/24 15:25 TS [id number]) Therapeutic Exercises Sitting Exercises hip abduction Sitting Exercise Name clams HEP Side bilateral Resistance level 4 band around thighs Reps/Minutes X10 each LE then one one min hold, 1Min hold Comments cues for glute act Standing Exercises pallof Standing Exercise Name press Side bilateral Resistance level 1 band (1) Reps/Minutes 10 Comments CGA for balance, challenging for pt. lat pull down Standing Exercise Name straight arm Side bilateral Resistance level 4 band Reps/Minutes 2x10 Comments CGA for balance PT-OP-T Assessment and Plan Start: 03/08/24 07:29 Freq: Status: Active Protocol: Document 05/20/24 14:30 TS (Rec: 05/20/24 15:25 TS [id number]) Physical Therapy Assessment Goals Five Impairment transfers Impairment 5 x STS 17 seconds Short Term Goal (STG) Pt will be able to perform at least 10 sit to stands without compensation and without UE assist in order to demonstrate improved BLE strength, initial balance, and safety with transfers 03/22: 10 STS with no UE support . STG Duration 6 weeks 03/22 Goal Met Chcf Goal (LTG) Pt will be able to perform 5x STS in at least 15 seconds or less without compensation or UE assist in order to meet age -related norms, improve BLE strength, initial balance, and safety with transfers 05/20: x5STS 14.30 secs without UE support. LTG Duration 12 weeks Four Impairment ambulation distance Impairment 2 MWT 206 ft with 3 wheeled walker Short Term Goal (STG) Pt will be able to ambulate at least 40 feet further (MDC) on 2 MWT using LRAD in order to demonstrate improved BLE strength, endurance, and activity tolerance. 03/22 149'. Decreased in distance most likely due to pacing. 05/20: 286', had good pacing. STG Duration 6 weeks Goal Met Chcf Goal (LTG) Pt will be able to complete 6 MWT using LRAD in order to demonstrate improved BLE strength, endurance, and activity tolerance. LTG Duration 12 weeks Three Impairment fear of falling Chcf Goal (LTG) Pt will improve ABC score to > 60% in order to demonstrate improved confidence related to not falling during ADLs/IADLs and during gait LTG Duration 12 weeks Two Impairment balance, static, fall risk Impairment Angeles 19/56 Short Term Goal (STG) Pt will increase Angeles balance score > 30/56 in order to demonstate improved balance during transfers and gait for improved safety and to decrease fall risk with AD use 04/29/24: 33/56 STG Duration 6 weeks MET Chcf Goal (LTG) Pt will increase Angeles balance score > 38/56 in order to demonstate improved balance during transfers and gait for improved safety and to decrease fall risk with AD use LTG Duration 12 weeks One Impairment balance, gait Impairment TUG 22.3 seconds with 3WW Short Term Goal (STG) Pt will decrease TUG time to less than 18 seconds with LRAD in order to demonstrate improved gait speed and decreased fall risk during household ambulation 04/29/24: 3 reps (32 sec, 19 sec , 19 sec)- average 23 sec w/ 3WW 05/20: 2 reps (18.03 secs, 15. 71 secs) STG Duration 6 weeks Goal Met Market Research Executive Goal (LTG) Pt will decrease TUG time to less than 12 seconds with LRAD in order to demonstrate improved gait speed and decreased fall risk during community ambulation 05/20: 14.04 secs LTG Duration 12 weeks Assessment Summary Assessment Pt met multiple goals this session. Pt met goal of x5STS in under 15 secs(14.03 secs) without UE support. Met goal of TUG test under 18 secs(14. 04 secs). Met goal of 2MWT(286 '). 2MWT fatiguing for pt. She continues to require rest breaks in between ther-ex. Pt would benefit from skilled PT for progressive BLE strengthening, gait, and balance training in order to reduce fall risk and improve activity tolerance.
--- NOTE | 2024-05-24 16:33 | PT.OTN ---
Current Diagnoses Other abnormalities of gait and mobility (05/24/24) Other lack of coordination (05/24/24) Other symptoms and signs involving the musculoskeletal system (05/24/24) Weakness (05/24/24) Physical Therapy Treatment Note PT-OP-A Visit Information Start: 03/08/24 07:29 Freq: Status: Active Protocol: Document 05/24/24 14:35 TS (Rec: 05/24/24 16:31 TS [id number]) Out-Patient Physical Therapy Visit Information Visit Information Visit Type Treatment Note Visit Note KX after 19 visits Visit Start Time 14:35 Visit Stop Time 15:15 Visit Number 16 Number of TAPE MACHINE TAILER Visits 3 PT-OP-B Current Condition Start: 03/08/24 07:29 Freq: Status: Active Protocol: Document 03/08/24 09:02 NM (Rec: 03/08/24 09:49 NM [id number]) Current Condition History of Current Condition Current Complaints weakness, decreased mobility, balance History of Current Condition Pt presents to PT with balance and gait abnormalities. She is using a trifold 3WW but has also has 4WW that folds. She live with her , who assists to care for her. She reports difficulty with ambulation. She has had previous PT several years ago for same condition. Pt reports that after last PT, she was able to walk without falling. Uses walker for ambulation in house, otherwise has to reach for things to stabilize. She has had 1 fall a few weeks ago , when ambulating with her walker when she lost her balance and fell on her side. Pt also has a 3 prong cane occasionally to walk. She reports that she has a fear of falling. Pt reports that she has had a stroke, that affected her L side; states that she can use her leg just as well as when she could before. Thinks that she has had the stroke 6 months ago. Pt reports no numbess in her legs. 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 Denies hx of osteoporosis, dizziness, vertigo, no fractures. She is blood pressure medication. Prior Treatments and Tests previous PT for same condition Treatment Goals Patient/Caregiver Goals walk without an AD Current Functional Impairments (Reported) Functional Limitations- ADL's dressing sitting down IND Functional Limitations- Mobility/Gait uses AD to ambulate stairs leading up to house (R rails) and in the home (b rails) PT-OP-C Subjective Start: 03/08/24 07:29 Freq: Status: Active Protocol: Document 05/24/24 14:35 TS (Rec: 05/24/24 16:31 TS [id number]) OP-PT Subjective Patient Comments Patient Comments Pt reports doing well. She would liketo start going on longer walks but has not done so yet. PT-OP-D Balance Start: 03/08/24 07:29 Freq: Status: Active Protocol: Document 03/08/24 09:02 NM (Rec: 03/08/24 09:49 NM [id number]) Balance Tests Angeles Balance Test Angeles Balance Test Score 19/56 PT-OP-E Functional Tests Start: 03/08/24 07:29 Freq: Status: Active Protocol: Document 03/08/24 09:02 NM (Rec: 03/08/24 09:49 NM [id number]) Functional Tests 2 Minute Walk Test Distance 206 ft Device Used 3WW 30 Second Sit to Stand Test Score 9 STS Comments uses HS to stabilize; no hands ; 18 chair Five Times Sit to Stand Test Score 17 seconds Comments uses HS to stabilize; 18 chair Timed Up and Go (TUG) Score 22.3 sec Comments 3WW PT-OP-F Manual Assessment Start: 03/08/24 07:29 Freq: Status: Active Protocol: Document 03/08/24 09:02 NM (Rec: 03/08/24 09:49 NM [id number]) Manual Assessments Soft Tissue Assessment Soft Tissue Mobility Assessment Decreased HS and heel cord length bilaterally Joint Mobility Assessment Joint Mobility Assessment Decreased ankle mobility, hip mobility PT-OP-G Mobility & Gait Start: 03/08/24 07:29 Freq: Status: Active Protocol: Document 03/08/24 09:02 NM (Rec: 03/08/24 10:58 NM [id number]) OP Gait Assessment Gait Gait Assistance Required: Standby Assistance Distance (Feet) 206 Assistive Devices Assistive Device Gait Belt,4 Wheeled Walker Gait Deviations General Gait Pattern Decreased Stride Length, Decreased Feet Clearance, Flexed Trunk Factors Limiting Gait Function Factors Limiting Gait Function Decreased Sensation,Decreased Strength,Limited Range of Motion,Poor Balance Comments Gait Comments Demonstrates B hip ER, decreased foot clearance. Does not fully extend knees with gait and shuffles feet. Has increased trunk sway, less foot clearance and shorter stance time on LLE. Holds walker in front of body vs closer to trunk Using 3 wheeled walker PT-OP-H Neuro Start: 03/08/24 07:29 Freq: Status: Active Protocol: Document 03/08/24 09:02 NM (Rec: 03/08/24 09:49 NM [id number]) Coordination Evaluation Upper Extremity Tests Left Pronation/Supination Test Normal Performance Right Pronation/Supination Test Normal Performance Lower Extremity Tests Left Heel on Augustin Test Normal Performance Foot Tapping Test Normal Performance Right Heel on Augustin Test Normal Performance Foot Tapping Test Normal Performance Vital Signs Comments Vital Signs Comments seated R arm, restin/72 mmHg, 90 spO2, 61 bpm PT-OP-J Posture/Palpation/Skin Start: 03/08/24 07:29 Freq: Status: Active Protocol: Document 03/08/24 09:02 NM (Rec: 03/08/24 09:49 NM [id number]) Posture Evaluation Position Standing Head/C-Spine Posture Forward Head T-Spine Posture Increased Kyphosis L-Spine Posture Increased Lordosis Pelvis Posture Anteriorly Tilted Hip Posture (L) Externally Rotated,(R) Externally Rotated Knee Posture (L) Genu Valgus,(R) Genu Valgus,(L) Excess Flexion,(R) Excess Flexion Ankle/Foot Posture (L) Supinated,(R) Supinated Comments Posture Comments Demos forward PAULO, in standing pt has L trunk lean. Kyphotic PT-OP-K Range of Motion Start: 03/08/24 07:29 Freq: Status: Active Protocol: Document 03/08/24 09:02 NM (Rec: 03/08/24 10:20 NM [id number]) Hip Goniometric Range of Motion Hip ROM Limitations Comments Limited hip flexion ROM bilaterally, did not formally measure Knee Goniometric Range of Motion Knee ROM Limitations Comments Limited hamstring ROM bilaterally, did not formally measure Ankle and Foot Goniometric Range of Motion Ankle and Foot ROM Limitations Comments Limited ankle dorsiflexion ROM bilaterally, did not formally measure PT-OP-M Strength Start: 03/08/24 07:29 Freq: Status: Active Protocol: Document 04/29/24 14:35 NM (Rec: 04/29/24 15:36 NM [id number]) Hip Strength Hip Manual Muscle Testing Right Flexion (L2) 4- Good- Extension (S1) 4 Good Abduction 4 Good Adduction 4 Good External Rotation 4- Good- Internal Rotation 4- Good- Comments IE: 4-/5 for all Left Flexion (L2) 4- Good- Extension (S1) 4- Good- Abduction 4- Good- Adduction 4- Good- External Rotation 4- Good- Internal Rotation 4- Good- Comments IE: 3+/5 Knee Strength Knee Manual Muscle Testing Right Flexion (S2) 4- Good- Extension (L3) 4- Good- Left Flexion (S2) 4- Good- Extension (L3) 4- Good- PT-OP-Q Treatments Start: 03/08/24 07:29 Freq: Status: Active Protocol: Document 05/24/24 14:35 TS (Rec: 05/24/24 16:31 TS [id number]) Gym Equipment Shuttle Recovery unilateral squat Details cued not lock extension Resistance 25# (navy) Reps/Time 2x10 bilateral squat Resistance 63# (33 navy) Shuttle Recovery Platform Stable Reps/Time 2x10 Shuttle Balance red Details WBOS Reps/Duration 8' Comments Pt improved balance with cues for core and glute act. Therapeutic Exercises Sitting Exercises STS Side bilateral Resistance level 2 band at thighs to prevent valgus Equipment Used standard chair Reps/Minutes 1x10 Comments arms in front for fwd wt shift , no hand use; requires increased time hip abduction Sitting Exercise Name clams HEP Side bilateral Resistance level 4 band around thighs Reps/Minutes 2X10 each LE, x1 1min hold. Comments cues for glute act Standing Exercises lat pull down Standing Exercise Name straight arm Side bilateral Resistance level 4 band Reps/Minutes 2x10 Comments CGA for balance standing hip ext with band Standing Exercise Name with UE support Resistance level 3 band above knees Reps/Minutes 2X5 Comments verbal and visual cues Hip EXT Standing Exercise Name HEP Resistance LVL 1 Equipment Used Rail for support Reps/Minutes x10 Comments Cued for glute act, fatigues stance leg calf raise Side bilateral Equipment Used B hand support on rail Reps/Minutes 2x10, 3 hold at the top Comments Cued for slow eccentric control calf stretch Standing Exercise Name gastrocnemius Side bilateral Equipment Used MALATHI Reps/Minutes 60 ea PT-OP-T Assessment and Plan Start: 03/08/24 07:29 Freq: Status: Active Protocol: Document 05/24/24 14:35 TS (Rec: 05/24/24 16:31 TS [id number]) Physical Therapy Assessment Goals Five Impairment transfers Impairment 5 x STS 17 seconds Short Term Goal (STG) Pt will be able to perform at least 10 sit to stands without compensation and without UE assist in order to demonstrate improved BLE strength, initial balance, and safety with transfers 03/22: 10 STS with no UE support . STG Duration 6 weeks 03/22 Goal Met Acrobatic Dancer Goal (LTG) Pt will be able to perform 5x STS in at least 15 seconds or less without compensation or UE assist in order to meet age -related norms, improve BLE strength, initial balance, and safety with transfers 05/20: x5STS 14.30 secs without UE support. LTG Duration 12 weeks Four Impairment ambulation distance Impairment 2 MWT 206 ft with 3 wheeled walker Short Term Goal (STG) Pt will be able to ambulate at least 40 feet further (MDC) on 2 MWT using LRAD in order to demonstrate improved BLE strength, endurance, and activity tolerance. 03/22 149'. Decreased in distance most likely due to pacing. 05/20: 286', had good pacing. STG Duration 6 weeks Goal Met Longterm Goal (LTG) Pt will be able to complete 6 MWT using LRAD in order to demonstrate improved BLE strength, endurance, and activity tolerance. LTG Duration 12 weeks Three Impairment fear of falling Longterm Goal (LTG) Pt will improve ABC score to > 60% in order to demonstrate improved confidence related to not falling during ADLs/IADLs and during gait LTG Duration 12 weeks Two Impairment balance, static, fall risk Impairment Angeles 19/56 Short Term Goal (STG) Pt will increase Angeles balance score > 30/56 in order to demonstate improved balance during transfers and gait for improved safety and to decrease fall risk with AD use 04/29/24: 33/56 STG Duration 6 weeks MET Longterm Goal (LTG) Pt will increase Angeles balance score > 38/56 in order to demonstate improved balance during transfers and gait for improved safety and to decrease fall risk with AD use LTG Duration 12 weeks One Impairment balance, gait Impairment TUG 22.3 seconds with 3WW Short Term Goal (STG) Pt will decrease TUG time to less than 18 seconds with LRAD in order to demonstrate improved gait speed and decreased fall risk during household ambulation 04/29/24: 3 reps (32 sec, 19 sec , 19 sec)- average 23 sec w/ 3WW 05/20: 2 reps (18.03 secs, 15. 71 secs) STG Duration 6 weeks Goal Met Longterm Goal (LTG) Pt will decrease TUG time to less than 12 seconds with LRAD in order to demonstrate improved gait speed and decreased fall risk during community ambulation 05/20: 14.04 secs LTG Duration 12 weeks Assessment Summary Assessment Pt demonstrates increased activity tolerance this session with decreased amount of rest. She performed shuttle balance with difficulty at first but improved balance with cues for core and glute act. Physical Therapy Plan Next Visit Focus/Plan Next Note Type Progress Note Next Visit Plan ankle DF w/ hurdles, band; cont w/ step up, leg press ( uni squat), hurdles, foam w/ less visual input Global hip strengthening: hip ext with band, march with band or ankle weights, lat, pallof , monster walk in //bars, transfer training with FWW and cane for safety POC: balance, gait with LRAD on stable and unstable surfaces, resisted ambulation
--- NOTE | 2024-05-27 15:36 | PT.OTN ---
Current Diagnoses Other abnormalities of gait and mobility (05/27/24) Other lack of coordination (05/27/24) Other symptoms and signs involving the musculoskeletal system (05/27/24) Weakness (05/27/24) Physical Therapy Treatment Note PT-OP-A Visit Information Start: 03/08/24 07:29 Freq: Status: Active Protocol: Document 05/27/24 14:33 NM (Rec: 05/27/24 15:36 NM [id number]) Out-Patient Physical Therapy Visit Information Visit Information Visit Type Discharge Summary Visit Note KX after 19 visits Visit Start Time 14:34 Visit Stop Time 15:14 Visit Number 17 Evaluation Information Evaluation Date 03/08/24 Precautions Precautions fall risk, monitor vitals PT-OP-B Current Condition Start: 03/08/24 07:29 Freq: Status: Active Protocol: Document 03/08/24 09:02 NM (Rec: 03/08/24 09:49 NM [id number]) Current Condition History of Current Condition Current Complaints weakness, decreased mobility, balance History of Current Condition Pt presents to PT with balance and gait abnormalities. She is using a trifold 3WW but has also has 4WW that folds. She live with her , who assists to care for her. She reports difficulty with ambulation. She has had previous PT several years ago for same condition. Pt reports that after last PT, she was able to walk without falling. Uses walker for ambulation in house, otherwise has to reach for things to stabilize. She has had 1 fall a few weeks ago , when ambulating with her walker when she lost her balance and fell on her side. Pt also has a 3 prong cane occasionally to walk. She reports that she has a fear of falling. Pt reports that she has had a stroke, that affected her L side; states that she can use her leg just as well as when she could before. Thinks that she has had the stroke 6 months ago. Pt reports no numbess in her legs. 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 Denies hx of osteoporosis, dizziness, vertigo, no fractures. She is blood pressure medication. Prior Treatments and Tests previous PT for same condition Treatment Goals Patient/Caregiver Goals walk without an AD Current Functional Impairments (Reported) Functional Limitations- ADL's dressing sitting down IND Functional Limitations- Mobility/Gait uses AD to ambulate stairs leading up to house (R rails) and in the home (b rails) PT-OP-C Subjective Start: 03/08/24 07:29 Freq: Status: Active Protocol: Document 05/27/24 14:33 NM (Rec: 05/27/24 15:36 NM [id number]) OP-PT Subjective Patient Comments Patient Comments Pt reports that she is doing well. States compliant with HEP. States wants to walk without AD. PT-OP-D Balance Start: 03/08/24 07:29 Freq: Status: Active Protocol: Document 03/08/24 09:02 NM (Rec: 03/08/24 09:49 NM [id number]) Balance Tests Angeles Balance Test Angeles Balance Test Score 19/56 PT-OP-E Functional Tests Start: 03/08/24 07:29 Freq: Status: Active Protocol: Document 03/08/24 09:02 NM (Rec: 03/08/24 09:49 NM [id number]) Functional Tests 2 Minute Walk Test Distance 206 ft Device Used 3WW 30 Second Sit to Stand Test Score 9 STS Comments uses HS to stabilize; no hands ; 18 chair Five Times Sit to Stand Test Score 17 seconds Comments uses HS to stabilize; 18 chair Timed Up and Go (TUG) Score 22.3 sec Comments 3WW PT-OP-F Manual Assessment Start: 03/08/24 07:29 Freq: Status: Active Protocol: Document 03/08/24 09:02 NM (Rec: 03/08/24 09:49 NM [id number]) Manual Assessments Soft Tissue Assessment Soft Tissue Mobility Assessment Decreased HS and heel cord length bilaterally Joint Mobility Assessment Joint Mobility Assessment Decreased ankle mobility, hip mobility PT-OP-G Mobility & Gait Start: 03/08/24 07:29 Freq: Status: Active Protocol: Document 03/08/24 09:02 NM (Rec: 03/08/24 10:58 NM [id number]) OP Gait Assessment Gait Gait Assistance Required: Standby Assistance Distance (Feet) 206 Assistive Devices Assistive Device Gait Belt,4 Wheeled Walker Gait Deviations General Gait Pattern Decreased Stride Length, Decreased Feet Clearance, Flexed Trunk Factors Limiting Gait Function Factors Limiting Gait Function Decreased Sensation,Decreased Strength,Limited Range of Motion,Poor Balance Comments Gait Comments Demonstrates B hip ER, decreased foot clearance. Does not fully extend knees with gait and shuffles feet. Has increased trunk sway, less foot clearance and shorter stance time on LLE. Holds walker in front of body vs closer to trunk Using 3 wheeled walker PT-OP-H Neuro Start: 03/08/24 07:29 Freq: Status: Active Protocol: Document 03/08/24 09:02 NM (Rec: 03/08/24 09:49 NM [id number]) Coordination Evaluation Upper Extremity Tests Left Pronation/Supination Test Normal Performance Right Pronation/Supination Test Normal Performance Lower Extremity Tests Left Heel on Augustin Test Normal Performance Foot Tapping Test Normal Performance Right Heel on Augustin Test Normal Performance Foot Tapping Test Normal Performance Vital Signs Comments Vital Signs Comments seated R arm, restin/72 mmHg, 90 spO2, 61 bpm PT-OP-J Posture/Palpation/Skin Start: 03/08/24 07:29 Freq: Status: Active Protocol: Document 03/08/24 09:02 NM (Rec: 03/08/24 09:49 NM [id number]) Posture Evaluation Position Standing Head/C-Spine Posture Forward Head T-Spine Posture Increased Kyphosis L-Spine Posture Increased Lordosis Pelvis Posture Anteriorly Tilted Hip Posture (L) Externally Rotated,(R) Externally Rotated Knee Posture (L) Genu Valgus,(R) Genu Valgus,(L) Excess Flexion,(R) Excess Flexion Ankle/Foot Posture (L) Supinated,(R) Supinated Comments Posture Comments Demos forward PAULO, in standing pt has L trunk lean. Kyphotic PT-OP-K Range of Motion Start: 03/08/24 07:29 Freq: Status: Active Protocol: Document 03/08/24 09:02 NM (Rec: 03/08/24 10:20 NM [id number]) Hip Goniometric Range of Motion Hip ROM Limitations Comments Limited hip flexion ROM bilaterally, did not formally measure Knee Goniometric Range of Motion Knee ROM Limitations Comments Limited hamstring ROM bilaterally, did not formally measure Ankle and Foot Goniometric Range of Motion Ankle and Foot ROM Limitations Comments Limited ankle dorsiflexion ROM bilaterally, did not formally measure PT-OP-M Strength Start: 03/08/24 07:29 Freq: Status: Active Protocol: Document 04/29/24 14:35 NM (Rec: 04/29/24 15:36 NM [id number]) Hip Strength Hip Manual Muscle Testing Right Flexion (L2) 4- Good- Extension (S1) 4 Good Abduction 4 Good Adduction 4 Good External Rotation 4- Good- Internal Rotation 4- Good- Comments IE: 4-/5 for all Left Flexion (L2) 4- Good- Extension (S1) 4- Good- Abduction 4- Good- Adduction 4- Good- External Rotation 4- Good- Internal Rotation 4- Good- Comments IE: 3+/5 Knee Strength Knee Manual Muscle Testing Right Flexion (S2) 4- Good- Extension (L3) 4- Good- Left Flexion (S2) 4- Good- Extension (L3) 4- Good- PT-OP-Q Treatments Start: 03/08/24 07:29 Freq: Status: Active Protocol: Document 05/27/24 14:33 NM (Rec: 05/27/24 15:36 NM [id number]) Therapeutic Exercises Sitting Exercises deadlift Side bilateral Resistance level 3 band under feet Reps/Minutes 10 Comments close SBA STS Side bilateral Equipment Used standard chair Reps/Minutes 10 Comments arms in front for fwd wt shift , no hand use; requires increased time LAQ Side bilateral Resistance level 3 band Reps/Minutes 20 ea Comments Self corrects for posture ankle DF Side bilateral Reps/Minutes 20x5 holds Standing Exercises side steps Side bilateral Resistance level 2 band at below knees Equipment Used 2 hand support Reps/Minutes 3x10 ft ea Comments Cued neutral foot/hip calf raise Side bilateral Equipment Used B hand support on rail Reps/Minutes 2x10, 2 hold at the top Comments Cued for slow eccentric control Gait Training Gait Activity 6 MWT Device Used 3WW Level of Assistance close SBA Surface stable Distance/Duration 600 ft Treatment Focus endurance Comments For goal FWW Device Used FWW Level of Assistance close SBA Surface stable Distance/Duration 2 min Treatment Focus endurance, heel strike, foot clearance, FWW safety with turns and transfers Comments Cued 3WW closer to body for safety as fatigues vs holding in front of pt Neuro Re-Education Treatment Balance Activities TUG Reps/Duration 17 sec with 3WW Angeles Reps/Duration 36/56 Comments Requires increased time and several rest breaks PT-OP-T Assessment and Plan Start: 03/08/24 07:29 Freq: Status: Active Protocol: Document 05/27/24 14:33 NM (Rec: 05/27/24 15:36 NM [id number]) Physical Therapy Assessment Goals Five Impairment transfers Impairment 5 x STS 17 seconds Short Term Goal (STG) Pt will be able to perform at least 10 sit to stands without compensation and without UE assist in order to demonstrate improved BLE strength, initial balance, and safety with transfers 03/22: 10 STS with no UE support . STG Duration 6 weeks 03/22 Goal Met Geologic Technician Goal (LTG) Pt will be able to perform 5x STS in at least 15 seconds or less without compensation or UE assist in order to meet age -related norms, improve BLE strength, initial balance, and safety with transfers 05/20: x5STS 14.30 secs without UE support. LTG Duration 12 weeks MET Four Impairment ambulation distance Impairment 2 MWT 206 ft with 3 wheeled walker Short Term Goal (STG) Pt will be able to ambulate at least 40 feet further (MDC) on 2 MWT using LRAD in order to demonstrate improved BLE strength, endurance, and activity tolerance. 03/22 149'. Decreased in distance most likely due to pacing. 05/20: 286', had good pacing. STG Duration 6 weeks Goal Met Geologic Technician Goal (LTG) Pt will be able to complete 6 MWT using LRAD in order to demonstrate improved BLE strength, endurance, and activity tolerance. 05/27/24: 600 ft in 6 min w/ 3WW but very fatigued and requires seated rest break for several minutes LTG Duration 12 weeks MET Three Impairment fear of falling Geologic Technician Goal (LTG) Pt will improve ABC score to > 60% in order to demonstrate improved confidence related to not falling during ADLs/IADLs and during gait 05/27/24: 77.5% LTG Duration 12 weeks MET Two Impairment balance, static, fall risk Impairment Angeles 19/56 Short Term Goal (STG) Pt will increase Angeles balance score > 30/56 in order to demonstate improved balance during transfers and gait for improved safety and to decrease fall risk with AD use 04/29/24: 33/56 STG Duration 6 weeks MET Assisted Goal (LTG) Pt will increase Angeles balance score > 38/56 in order to demonstate improved balance during transfers and gait for improved safety and to decrease fall risk with AD use 05/27/24: 36/56 LTG Duration 12 weeks NOT MET One Impairment balance, gait Impairment TUG 22.3 seconds with 3WW Short Term Goal (STG) Pt will decrease TUG time to less than 18 seconds with LRAD in order to demonstrate improved gait speed and decreased fall risk during household ambulation 04/29/24: 3 reps (32 sec, 19 sec , 19 sec)- average 23 sec w/ 3WW 05/20: 2 reps (18.03 secs, 15. 71 secs) STG Duration 6 weeks Goal Met Geologic Technician Goal (LTG) Pt will decrease TUG time to less than 12 seconds with LRAD in order to demonstrate improved gait speed and decreased fall risk during community ambulation 05/20: 14.04 secs 05/27/24: 17 sec LTG Duration 12 weeks NOT MET Progress Towards Goals Progress Towards Goals Slow Progress due to Activity Tolerance,Slow Progress due to Attendance Issues,Goals Met Progress Comments Did not meet Angeles goal or TUG goal Assessment Summary Assessment Pt tolerated session well. Met 6 MWT distance goal, able to ambulate 600 ft in 6 minutes. However, very fatiguing. Cued occasionally to hold 3WW closer for increased stability . PT recommended pt and start a walking program on flat surfaces with rest areas available with AD for safety and to promote endurance. Pt still demos increased fall risk during Angeles only 36/. Still challenged with maintaining static balance during transfers, narrow PAULO, and changing PAULO. Balance score possibly impacted by fatigue from 6 MWT. PT recommended further PT to pt but pt declines and wants to discharge today as at end of plan of care. Rest of session spent on creating and reviewing maintenance program to address global strengthening to improve balance goals. Cued only for form, requires UE support for all standing exercises for balance/safety. Recommended nearby for all standing exercises. Physical Therapy Plan Frequency and Duration Frequency of Treatment 2x/Week Duration of treatment (weeks) 12 Plan of Care Start Date 03/08/24 Plan of Care End Date 06/03/24 Therapeutic Interventions Therapeutic Interventions Balance Training,Gait Training ,Home Exercise Program,Joint Mobilizations,Manual Therapy, Neuromuscular Re-education, Orthotic/Prosthetic Management ,Patient/Caregiver Education, Self-Care/Home Management,Soft Tissue Mobilization,Taping, Therapeutic Activities, Therapeutic Exercises Modalities Cold Pack/Ice Massage,Hot Packs Other Referrals/Consults Referrals/Consults Recommended Pt would benefit from possible referral to plant operations coordinator to address L foot clearance during gait Discharge Physical Therapy Discharge Reasons Patient Request Discharge Comments PT recommended further PT to pt but pt declines and wants to discharge today as at end of plan of care. Next Visit Focus/Plan Next Note Type Discharge Summary Next Visit Plan discharge from PT
== END 2024-05-31 10:38 | disposition home or self-care (01) ==
LOC: PHYS 14:30
PROVIDERS: Family Provider Student in an Organized Health Care Education/Training Program; PCP Family Medicine; Referring Provider Family Medicine; Visit Provider Family Medicine
DX: R29.898 Other symptoms and signs involving the musculoskeletal system (principal); R26.89 Other abnormalities of gait and mobility; R53.1 Weakness; R27.8 Other lack of coordination
CPT/HCPCS: 97110; 97112; 97116; 97161; 97530; 97535

== ENCOUNTER → 2024-09-20 13:36 | Outpatient (CLI) | payer MEDICARE, OTHER, SELFPAY ==
[2024-02-02 10:45] VITALS: BMI 25.3
--- NOTE | 2024-09-20 13:38 | DI.ECHO.S_ITS ---
[facility]+ [facility] : : [id number] : : [place] : : [id number] : : Phone: [phone] Echocardiogram Report + + :Name: DINORA OCONNELL Study Date: 09/20/2024 Height: 64.5 in: :[facility] ReadingLocation: Weight: 135 lb : : Gender: Female BSA: 1.7 m2 : :: 1940 Age: 84 yrs BP: 144/71 mmHg: :Reason For Study: CARDIAC MURMUR : :Ordering Physician: YOSSI, : :ERNIE Eli Performed By: Velvet Osborn : :Referring: ERNIE SY : + + Interpretation Summary The left ventricle is normal in size. The left ventricular ejection fraction is normal. The ejection fraction is estimated to be 60-65%. No significant change in LVEF from the previous study. The right ventricle is normal in size and function. There is mild to moderate mitral annular calcification. There is mild mitral regurgitation. Compared to the prior echo study, there has been no change in the severity of mitral regurgitation. There is trace tricuspid regurgitation. The right ventricular systolic pressure is estimated to be at least 21 mmHg based on an estimated right atrial pressure of 3 mm Hg. Compared to the prior echo exam, there has been a decrease in the severity of pulmonary hypertension. Procedure: A two-dimensional transthoracic echocardiogram with color flow and Doppler was performed. The study quality was technically adequate. Comparison is made with the echocardiogram of 04/09/2022. The patient was in sinus rhythm with heart rates between 56-63 bpm during the exam. Left Ventricle: The left ventricle is normal in size. Proximal septal thickening is noted. There is no echo evidence for significant left ventricular outflow tract obstruction. There is no thrombus. The ejection fraction is estimated to be 60-65%. The left ventricular ejection fraction is normal. There are no focal wall motion abnormalities. MV E/A: 0.75 Med Peak E' Jarred: 4.0 cm/sec E/E' med: 17.7. Right Ventricle: The right ventricle is normal in size and function. Atria: The left atrial size is normal. Right atrial size is normal. There is no Doppler evidence for an interatrial shunt. Mitral Valve: The mitral valve leaflets appear mildly thickened, but open well. There is mild to moderate mitral annular calcification. There is no mitral valve stenosis. There is mild mitral regurgitation. Compared to the prior echo study, there has been no change in the severity of mitral regurgitation. Aortic Valve: The aortic valve is trileaflet. The aortic valve is mildly calcified. There is minimally reduced leaflet mobility. There is no aortic valve stenosis. No aortic regurgitation is present. Tricuspid Valve: The tricuspid valve leaflets are thin and pliable. There is trace tricuspid regurgitation. The right ventricular systolic pressure is estimated to be at least 21 mmHg based on an estimated right atrial pressure of 3 mm Hg. Compared to the prior echo exam, there has been a decrease in the severity of pulmonary hypertension. Pulmonic Valve: The pulmonic valve leaflets are thin and pliable; valve motion is normal. There is a trace or physiologic amount of pulmonic regurgitation. Great Vessels: The aortic root is normal size. The dimensions of the ascending aorta are normal. The IVC is of normal diameter and collapses greater than 50% with a sniff. This suggests a low right atrial pressure of 3 mm Hg. Pericardium/ Pleura There is no pericardial effusion. There is no pleural effusion. MMode/2D Measurements & Calculations LVIDd: 4.6 cm LVOT diam: 1.9 cm LVIDs: 3.0 cm Ao root diam: 2.9 cm FS: 35.9 % asc Aorta Diam: 3.2 cm EPSS: 0.43 cm Ao Arch Diam (Prox Trans): 3.1 cm IVSd: 0.88 cm LVPWd: 1.0 cm LV lemon. diameter/BSA (cm/m^2): 2.8 LV sys. diameter/BSA (cm/m^2): 1.8 LA A2 area: 20.4 cm2 RA long axis: 5.1 cm LA A4 area: 15.5 cm2 RA area: 14.8 cm2 LA length (vol): 5.5 cm RA vol: 36.7 ml LA vol: 48.5 ml RA : 22.0 ml/m2 LA vol index: 29.1 ml/m2 IVC diam: 0.93 cm RVD1 (basal): 2.6 cm RVD2 (mid): 2.2 cm TAPSE: 1.7 cm Doppler Measurements & Calculations Ao V2 max: 210.2 cm/sec LVOT Max Jarred: 140.1 cm/sec Ao V2 mean: 142.2 cm/sec LV V1 max P.8 mmHg Ao max P.7 mmHg LV V1 VTI: 29.7 cm Ao mean P.2 mmHg JOHNNA(I,D): 2.0 cm2 Ao V2 VTI: 41.7 cm JOHNNA(V,D): 1.9 cm2 sev ratio: 0.71 JOHNNA indexed to BSA (cm^2/m^2): 1.2 MV E max jarred: 70.3 cm/sec TR max jarred: 212.5 cm/sec MV A max jarred: 93.6 cm/sec TR max P.1 mmHg MV E/A: 0.75 PA V2 max: 94.0 cm/sec Med Peak E' Jarred: 4.0 cm/sec PA V2 mean: 70.0 cm/sec E/E' med: 17.7 PA mean P.1 mmHg Lat Peak E' Jarred: 5.9 cm/sec PA pr(Accel): 37.9 mmHg E/E' lat: 12.0 E/e' average: 14.8 MV dec time: 0.39 sec SV(LVOT): 82.7 ml Reading Physician:03:45 PM
== END ==
PROVIDERS: Family Provider Student in an Organized Health Care Education/Training Program; PCP Family Medicine; Referring Provider Nurse Practitioner; Visit Provider Nurse Practitioner
DX: I34.81 Nonrheumatic mitral (valve) annulus calcification (principal); I34.0 Nonrheumatic mitral (valve) insufficiency; I27.20 Pulmonary hypertension, unspecified; R01.1 Cardiac murmur, unspecified
CPT/HCPCS: 93306

== ENCOUNTER → 2024-10-29 10:02 | Outpatient (CLI) | payer MEDICARE, OTHER, SELFPAY ==
[2024-02-02 10:45] VITALS: BMI 25.3
[2024-10-29 11:48] LABS: Cholesterol 153 mg/dL (140-199); HDL Cholesterol 78 mg/dL (40-60); LDL Cholesterol Calculated 56 mg/dL (<100); Triglycerides 96 mg/dL (35-150)
[2024-10-29 11:53] LABS: Albumin 4.5 g/dL (3.5-5.0); BUN Creatinine Ratio 21.5 (6-22); Blood Urea Nitrogen 28 mg/dL (7-17); Calcium 9.5 mg/dL (8.4-10.2); Carbon Dioxide 22 mmol/L (22-32); Chloride 106 mmol/L (98-107); Estimated Glomerular Filt Rate 41 mL/min (>60); Glucose 127 mg/dL (80-110); HEMOLYSIS < 15 (0-50); Magnesium 1.8 mg/dL (1.6-2.3); Phosphorous 3.3 mg/dL (2.8-4.1); Potassium 4.9 mmol/L (3.4-5.1); Sodium 139 mmol/L (137-145)
[2024-10-29 12:15] LABS: Creatinine Urine Random 118.89 mg/dL
[2024-10-29 13:06] LABS: Microalbumin Urine Random 30.8 mg/dL (0-1.6)
[2024-10-30 07:38] LABS: Parathyroid Hormone Int 82 pg/mL (15-65)
== END ==
PROVIDERS: Family Provider Student in an Organized Health Care Education/Training Program; PCP Family Medicine; Referring Provider Internal Medicine Nephrology; Visit Provider Internal Medicine Nephrology
DX: N18.32 Chronic kidney disease, stage 3b (principal); E78.2 Mixed hyperlipidemia
CPT/HCPCS: 36415; 80048; 80061; 82040; 82043; 82306; 82570; 83735; 83970; 84100; 84550

== ENCOUNTER → 2024-12-13 16:31 | Outpatient (CLI) | payer MEDICARE, OTHER, SELFPAY ==
[2024-02-02 10:45] VITALS: BMI 25.3
--- NOTE | 2024-12-13 16:32 | DI.MG.S_ITS ---
MM screening mammo BI: 12/13/2024. BI-RADS: 1 CLINICAL: 84-year old female for bilateral screening mammogram. Tyrer-Cuzick lifetime risk of 0.4%. No personal or first-degree family history of breast cancer. PRIOR EXAMS 09/16/2023, 07/24/2022, 07/04/2021, 05/17/2020, 05/16/2019, 04/13/2018, 04/03/2017, 02/05/2016, 01/25/2015. MAMMOGRAPHY TECHNIQUE: The examination is limited by clinical circumstance. 2D and 3D (tomosynthesis) digital mammographic views obtained, with additional images as needed for full coverage. Current study was also evaluated with a Computer Aided Detection (CAD) system. DENSITY C. The breasts are heterogeneously dense, which may obscure small masses. MAMMOGRAPHY FINDINGS Bilateral: No suspicious mass, asymmetry, microcalcification, or other abnormality seen. No significant change from comparison. IMPRESSION: * No evidence of malignancy. RECOMMENDATIONS Bilateral * Annual screening mammography. OVERALL ASSESSMENT CATEGORY BI-RADS-1: Negative. The [employer] recommends annual screening mammography beginning at age 40 for women with average risk of breast cancer. ELECTRONICALLY SIGNED: Iza Leahy M.D. on 12/14/2024 at 08:42:24 AM PT Interpreting Station ID: [id number]
== END ==
LOC: MAMMO 16:32
PROVIDERS: PCP Family Medicine; Referring Provider Family Medicine; Visit Provider Family Medicine
DX: Z12.31 Encounter for screening mammogram for malignant neoplasm of breast (principal); R92.333 Mammographic heterogeneous density, bilateral breasts
CPT/HCPCS: 77063; 77067

== ENCOUNTER → 2025-04-03 15:18 | Outpatient (CLI) | payer MEDICARE, OTHER, SELFPAY ==
[2024-02-02 10:45] VITALS: BMI 25.3
[2025-04-03 16:24] LABS: Albumin 4.3 g/dL (3.5-5.0); Blood Urea Nitrogen 29 mg/dL (7-17); Calcium 9.4 mg/dL (8.4-10.2); Carbon Dioxide 24 mmol/L (22-32); Chloride 107 mmol/L (98-107); Estimated Glomerular Filt Rate 43 mL/min (>60); Glucose 155 mg/dL (70-99); HEMOLYSIS < 15 (0-50); Magnesium 2.1 mg/dL (1.6-2.3); Phosphorous 3.4 mg/dL (2.8-4.1); Potassium 4.4 mmol/L (3.4-5.1); Sodium 138 mmol/L (137-145); Uric Acid 6.3 mg/dL (2.5-6.2)
[2025-04-03 16:40] LABS: Vitamin D 25 Hydroxy (D3) 69.6 ng/mL (30.0-100.0)
[2025-04-03 17:51] LABS: Microalbumi Creatinin Ratio Ur 55.0 ug/mg CR (<30)
== END ==
PROVIDERS: PCP Family Medicine; Referring Provider Internal Medicine Nephrology; Visit Provider Internal Medicine Nephrology
DX: N18.32 Chronic kidney disease, stage 3b (principal)
CPT/HCPCS: 36415; 80048; 82040; 82043; 82306; 82570; 83735; 83970; 84100; 84550

== ENCOUNTER → 2025-04-17 09:07 | Outpatient (CLI) | payer MEDICARE, OTHER, SELFPAY ==
[2024-02-02 10:45] VITALS: BMI 25.3
[2025-04-17 10:10] LABS: Albumin 4.0 g/dL (3.5-5.0); Blood Urea Nitrogen 33 mg/dL (7-17); Calcium 8.7 mg/dL (8.4-10.2); Carbon Dioxide 29 mmol/L (22-32); Chloride 104 mmol/L (98-107); Estimated Glomerular Filt Rate 37 mL/min (>60); Glucose 102 mg/dL (70-99); HEMOLYSIS < 15 (0-50); Magnesium 2.0 mg/dL (1.6-2.3); Phosphorous 4.6 mg/dL (2.8-4.1); Potassium 5.1 mmol/L (3.4-5.1); Sodium 138 mmol/L (137-145); Uric Acid 6.3 mg/dL (2.5-6.2)
[2025-04-17 10:28] LABS: Vitamin D 25 Hydroxy (D3) 79.8 ng/mL (30.0-100.0)
[2025-04-17 10:30] LABS: Microalbumi Creatinin Ratio Ur 51.0 ug/mg CR (<30)
== END ==
PROVIDERS: PCP Family Medicine; Referring Provider Family Medicine; Visit Provider Internal Medicine Nephrology
DX: N18.32 Chronic kidney disease, stage 3b (principal)
CPT/HCPCS: 36415; 80048; 82040; 82043; 82306; 82570; 83735; 83970; 84100; 84550

== ENCOUNTER → 2025-06-07 11:14 | Outpatient (CLI) | payer MEDICARE, OTHER, SELFPAY ==
[2024-02-02 10:45] VITALS: BMI 25.3
[2025-06-07 12:12] LABS: Hemoglobin A1C% w Est Avg Glu 6.4 % (4.0-6.0)
== END ==
PROVIDERS: PCP Family Medicine; Referring Provider Family Medicine; Visit Provider Family Medicine
DX: E08.22 Diabetes mellitus due to underlying condition with diabetic chronic kidney disease (principal); N18.32 Chronic kidney disease, stage 3b; Z79.4 Long term (current) use of insulin
CPT/HCPCS: 36415; 83036